=== PATIENT | female | born 1960 | race Caucasian/White ===

== ENCOUNTER → 2018-02-05 16:26 | Outpatient (CLI) | payer MEDICARE, MEDICAID, SELFPAY ==
[2018-02-05 17:00] LABS: Abs Immature Grans 0.01 k/cumm (0.0-0.09); Absolute Basophil Count 0.03 k/cumm (0.0-0.2); Absolute Eosinophil Count 0.11 k/cumm (0.0-0.7); Absolute Lymphocyte Count 1.93 k/cumm (1.2-3.4); Absolute Neutrophil Count 2.69 k/cumm (1.2-6.7); Basophils % 0.6; Eosinophils % 2.1; HCT 39.5 % (36.0-46.0); HGB 13.3 g/dL (12.0-15.5); Immature Grans % 0.2; Lymphocytes % 37.3; Mean Corp. HGB Concentration 33.7 g/dL (32.0-36.0); Mean Corpuscular Hemoglobin 30.4 pg (27.0-33.0); Mean Corpuscular Volume 90.2 fL (80-95); Mean Platelet Volume 10.6 fL (8.0-11.0); Monocytes % 7.7; Neutrophils % 52.1; Platelet Count 240 x1000/uL (130-400); RBC 4.38 m/cumm (4.00-5.20); RBC Distribution Width 14.1 % (11.7-14.6); White Blood Cell Count 5.17 k/cumm (4.4-10.8)
[2018-02-05 17:09] LABS: ALT 21 U/L (12-78); AST 17 U/L (15-37); Albumin 3.8 g/dL (3.4-5.0); Alkaline Phosphatase 70 U/L (46-116); BUN 15 mg/dL (7-18); Bilirubin, Total 0.3 mg/dL (0.2-1.0); Calcium 8.6 mg/dL (8.5-10.1); Chloride 102 mmol/L (98-107); Glucose 114 mg/dL (70-100); Potassium 3.4 mmol/L (3.5-5.1); Sodium 136 mmol/L (136-145); Total Protein 7.4 g/dL (6.4-8.2)
== END ==
PROVIDERS: PCP Nurse Practitioner Adult Health; Visit Provider Internal Medicine Hematology & Oncology
DX: C50.919 Malignant neoplasm of unspecified site of unspecified female breast (principal)
CPT/HCPCS: 36415; 80053; 85025

== ENCOUNTER 2018-06-11 13:05 | Outpatient (CLI) | payer MEDICARE, MEDICAID, SELFPAY ==
--- NOTE | 2018-06-11 11:30 | DI.RAD_ITS ---
SYMPTOMS/DIAGNOSIS: COUGH, R05, ? PNEUMONIA PA AND LATERAL CHEST: The heart is normal in size. The lungs are clear. The mediastinal structures and pleura appear intact. CONCLUSION: Normal chest.
== END 2018-06-11 13:25 ==
PROVIDERS: PCP Nurse Practitioner Adult Health; Visit Provider Nurse Practitioner Family
DX: R05 Cough (principal)
CPT/HCPCS: 71046

== ENCOUNTER 2019-03-20 07:04 | Emergency (ER) | payer MEDICARE, MEDICAID, SELFPAY ==
[2019-03-20 07:09] VITALS: BP 146/94; PULSE 87; RESP 16; TEMP 36.8; O2SAT 98
--- NOTE | 2019-03-20 07:15 | W.ED.GENAD ---
Discharge Plan Disposition Patient Disposition: HOME Discharge Details Chief Complaint: Chest/Rib Clinical Impression: Contusion of rib on right side Primary Care Provider: Dena Alfonso ED Provider: Mehul Weinberg Home Meds and New Rx's Prescriptions: New lidocaine 4 % adhesive patch,medicated 1 patch TP DAILY PRN (Reason: pain) Qty: 1 RF: 0 Continued (DME) blood-glucose meter [FreeStyle Lite Meter] kit See Dose Instructions .ROUTE .MEDSUPPLY Qty: 1 RF: 0 (DME) FreeStyle Lite Strips strip 1 ea Miscellaneous DAILY Qty: 100 RF: 3 (DME) lancets [FreeStyle Lancets] 28 gauge misc 1 ea Miscellaneous DAILY Qty: 100 RF: 3 epinephrine [EpiPen 2-Hi] 0.3 mg/0.3 mL auto-injector 0.3 mg IM ONCE Qty: 1 RF: 0 fluticasone propionate [Flonase Allergy Relief] 50 mcg/actuation spray,suspension 1 - 2 spray NS DAILY PRN (Reason: nasal congestion) Qty: 16 RF: 3 olopatadine [Pataday] 0.2 % drops 1 drp Ophthalmic DAILY PRN (Reason: itching) Qty: 1 RF: 0 No Action valacyclovir 1 gram tablet 1,000 mg PO Q8H Qty: 21 RF: 0 Discharge Instructions Instructions: Rib Contusion (ED) Additional Instructions: Please use incentive spirometry every 2 hours while awake for the next 1 week. Please take ibuprofen over the counter. Take 600mg by mouth every 6 hours as needed for pain. Please contact your primary care physician to arrange follow-up. Return to the ER for any worsening or new concerning symptoms. Referrals: Dena Alfonso, [employer] [Primary Care Provider] - Discharge Data Discharge Date/Time-TO BE ENTERED AT DEPARTURE: 03/20/19 08:58 Medical Decision Making <Efraín Cruz MD - Last Filed: 03/23/19 23:05> Patient presenting with right lateral rib pain that she reports occurred as she was leaning over the arm of a chair and felt a pop. She does not feel short of breath but hurts to take a breath. There is no rash. There is no fever. Definite action that provoke the pain. Unlikely to be pulmonary embolus. Will apply Lidoderm patch and give ibuprofen. Obtain x-ray of chest and right rib. <Mehul Weinberg MD - Last Filed: 03/21/19 08:48> Chest x-ray reviewed and interpreted by me: No pneumothorax, no obvious rib fracture, incidentally noted scoliosis. Suspect rib contusion. Incentive spirometer was provided and patient was instructed on use by nursing. Usual and customary discharge instructions were provided. HPI <Efraín Cruz MD - Last Filed: 03/23/19 23:05> General Mode of arrival: ambulatory. Date/Time Provider Initiated Documentation: 03/20/19 07:13. Limitations to Documentation: no limitations. Information obtained by: patient. HPI Narrative: Patient presents to ED with right lateral rib pain. She leaned over an arm of a chair to plug a wire charger in. She felt a pop and had pain in the right lateral chest wall. It has got worse. It hurts to take deep breaths. It hurts to move. It is much worse when she is lying down. She denies fever or chills. She has developed a little bit of a cough. There is no abdominal pain, nausea or vomiting. There is no leg pain or leg swelling. She does not have prior history of clots. She distinctly recalls a pop in the right ribs prior to the pain occurring. Related Data Home Medications Medication Instructions Recorded Confirmed blood sugar diagnostic #100 box 10/20/18 10/20/18 blood-glucose meter #1 each 10/20/18 10/20/18 epinephrine 0.3 mg/0.3 mL 0.3 mg IM ONCE #1 kit 10/20/18 03/20/19 injection, auto-injector lancets 28 gauge #100 each 10/20/18 10/20/18 fluticasone propionate 50 1 - 2 spray NS DAILY PRN #16 gm 12/23/18 03/20/19 mcg/actuation nasal spray,suspension olopatadine 0.2 % eye drops 1 drp OPHTHALMIC DAILY PRN #1 01/02/19 03/20/19 bottle lidocaine 1 patch TP DAILY PRN #1 each 03/20/19 valacyclovir 1 gram tablet 1,000 mg PO Q8H #21 tab 03/23/19 03/23/19 Previous Rx's Medication Instructions Recorded blood sugar diagnostic #100 box 10/20/18 blood-glucose meter #1 each 10/20/18 epinephrine 0.3 mg/0.3 mL 0.3 mg IM ONCE #1 kit 10/20/18 injection, auto-injector lancets 28 gauge #100 each 10/20/18 fluticasone propionate 50 1 - 2 spray NS DAILY PRN #16 gm 12/23/18 mcg/actuation nasal spray,suspension olopatadine 0.2 % eye drops 1 drp OPHTHALMIC DAILY PRN #1 01/02/19 bottle lidocaine 1 patch TP DAILY PRN #1 each 03/20/19 valacyclovir 1 gram tablet 1,000 mg PO Q8H #21 tab 03/23/19 Allergies Allergy/AdvReac Type Severity Reaction Status Date / Time iodine Allergy Severe hives Verified 03/23/19 13:12 carvedilol Allergy Intermediate Hives Verified 03/23/19 13:12 codeine [Codeine] Allergy Intermediate RASH Verified 03/23/19 13:12 Penicillins Allergy Intermediate RASH Verified 03/23/19 13:12 Sulfa (Sulfonamide Allergy Intermediate Rash Verified 03/23/19 13:12 Antibiotics) hydrocodone Allergy Mild ITCHING Verified 03/23/19 13:12 tramadol Allergy Mild Hives Verified 03/23/19 13:12 General Stated Complaint: Chest/Rib MARIO: 3 Review of Systems <Efraín Cruz MD - Last Filed: 03/23/19 23:05> Constitutional Constitutional: Denies chills and Denies fever(s) Cardiovascular Cardiovascular: Reports chest pain (right rib pain), Denies palpitations and Denies dyspnea Respiratory Respiratory: Reports cough, Reports pain with cough and Denies dyspnea Gastrointestinal Gastrointestinal: Denies abdominal pain, Denies nausea and Denies vomiting Integumentary/Breasts Skin/Breast: Denies rash Endocrine Endocrine: Denies palpitations PFSH <Efraín Cruz MD - Last Filed: 03/23/19 23:05> Medical History BRCA1 gene mutation positive (Chronic 03/26/13) S/P BSO-04/29 needs yearly pelvic exam per Dr. Chamberlain Cardiomyopathy Chronic anxiety Cystocele with uterine prolapse (Chronic 04/03/17) 04/03/2017 #3. Ring with support Depressed bipolar I disorder (Chronic 06/16/12) Diabetes mellitus (Chronic 06/16/12) E-coli UTI (Resolved 04/23/17) 04/08/2017 pansensitive. Rx with ciprofloxacin ?3 days. 04/23/2017 recurrent symptoms no urine culture obtained Rx for ciprofloxacin ?5 days. Family history of diabetes mellitus (Chronic 08/20/16) History of cardiomyopathy (Resolved 05/06/15) 08/15/11. CARDIAC CATH NORMAL CORONARY ARTERIES. idiopathic per torkelson, resolved Hx of eating disorder anorexia and bulemia in adolescence. None since. Hx of migraines Malignant neoplasm of female breast (Resolved 12/15/04) BRAC-1 GENE MUTATION left; mastectomy; radiation and chemo. [place] [place] Midline cystocele Symptomatic since 2015. Migraine (Chronic 06/16/12) Scoliosis (Chronic) Meloxicam PRN, APAP, PT, weight management Vitamin D deficiency (Chronic 06/16/12) Surgical History Arthroplasty of knee (~2010) [facility]-LEFT KNEE ARTHROSCOPY WITH PARTIAL MEDIAL AND LATERAL MENISCECTOMY Bilateral salpingectomy with oophorect[place] [facility] [place] removal of fallopian tubes and ovaries. No HRT. On vaginal E2 cream. Breast, Lumpectomy 2004 L breast cancer BRACA 1 + followed by Chemo and Radiation CARDIAC HEART CATH (08/15/11) [place] [facility] [place]) Ligation of fallopian tube STRESS TEST (08/15/11) [facility] [place] Tonsillectomy Social History Smoking/Tobacco Use Status: Never Alcohol Intake: current Alcohol Intake frequency: holidays/special occasions only Drug use: Never Household members: none Housing: apartment Number of Children: 3 number of grandchildren: 2 Communication Needs: Corrective Lenses Do you need help understanding health information?: Never 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 Blood pressure little elevated otherwise normal vital signs and normal room air saturation. Const: WDWN female in NAD. HEENT: NC/AT. Normal facial exam. Eyes: Normal conjunctiva and sclera. Neck: Supple. Trachea midline. Lungs: Normal respiratory effort. Lungs are clear. Exquisite tenderness right lateral ribs around the fourth or fifth rib. Cor: RRR without murmur/gallop. Good radial pulses. GI: Soft. NT/ND. No guarding or rebound. Neuro: A+O x 3. CN grossly in tact. Good strength and no focal deficit. Ext: No C/C/E. No calf tenderness. Skin: Warm and dry without rash. Course <Efraín Cruz MD - Last Filed: 03/23/19 23:05> Vital Signs Vital signs: Vital Signs Temperature 98.2 F 03/20/19 07:09 Pulse 87 03/20/19 07:09 Respiratory Rate 16 03/20/19 07:09 Blood Pressure 146/94 H 03/20/19 07:09 Pulse Oximetry 98 03/20/19 07:09 Temperature 98.2 F 03/20/19 07:09 Pulse 87 03/20/19 07:09 Respiratory Rate 16 03/20/19 07:09 Blood Pressure 146/94 H 03/20/19 07:09 Pulse Oximetry 98 03/20/19 07:09 Pain Level 6 03/20/19 07:09 Sign Out <Efraín Cruz MD - Last Filed: 03/23/19 23:05> Sign Out Data: Sign Out Comment: pending rib/chest x-ray Last updated by Efraín Cruz MD at 03/20/19 07:52
--- NOTE | 2019-03-20 07:22 | DI.RAD_ITS ---
EXAM: XR RIBS RT W PA LAT CHEST INDICATION: right rib pain. COMPARISON: XR CHEST 2V PA LATERAL from 06/11/2018 TECHNIQUE: 2D digital imaging was performed. FINDINGS: PA and lateral views of the chest and three views of the right ribs were obtained. The heart is not enlarged. The lungs are clear. No pleural effusion or pneumothorax seen. No rib fracture identifie d. IMPRESSION: Negative examination of the chest and ribs.
[2019-03-20] MEDS: Ibuprofen 600 MG TAB PO (07:39)
[2019-03-20] MEDS: Lidocaine 5% Patch 1 PATCH TP (07:40)
[2019-03-20 08:55] VITALS: BP 112/77; PULSE 70; RESP 18; O2SAT 97
== END 2019-03-20 08:58 | disposition home or self-care (01) ==
PROVIDERS: Emergency Provider Student in an Organized Health Care Education/Training Program; PCP Nurse Practitioner Adult Health
DX: S20.211A Contusion of right front wall of thorax, initial encounter (principal); X58.XXXA Exposure to other specified factors, initial encounter
CPT/HCPCS: 99283; 71046; 71100

== ENCOUNTER 2019-04-13 01:48 | Outpatient (CLI) | payer MEDICARE, MEDICAID, SELFPAY ==
--- NOTE | 2019-04-13 15:49 | DI.RAD_ITS ---
EXAM: XR LUMBAR SPINE COMPLETE INDICATION: assess alignment; bones. COMPARISON: No exams were available for comparison TECHNIQUE: 2D digital imaging was performed. FINDINGS: There is a moderate right convex scoliotic curvature at the thoracolumbar junction. The apex is at t he L1-L2 disc level. There is mild retrolisthesis of L2 on L3. Mild disc space narrowing is seen at L1-L2 marked disc space narrowing is seen at L2-L3. There are anterior osteophytes most of the leve ls of the lumbar spine. No spondylolysis or spondylolisthesis is seen. No acute fracture or subluxa tion is present. IMPRESSION: Moderate right convex scoliosis with apex at the L1-L2 disc level. Degenerative changes in the lumba r spine.
--- NOTE | 2019-04-13 15:49 | DI.RAD_ITS ---
EXAM: XR THORACIC SPINE COMPLETE INDICATION: Assess alignment bones of T and L spine. COMPARISON: No exams were available for comparison TECHNIQUE: 2D digital imaging was performed. FINDINGS: There is a very mild S-type scoliotic curvature of the thoracic spine. No acute fractures or subluxa tions are seen in the spine. Mild degenerative changes are seen in the midthoracic spine. The sidnye adriel lines are intact. IMPRESSION: Mild S-type scoliotic curvature of the thoracic spine. Mild degenerative changes in the thoracic spi ne.
--- NOTE | 2019-04-13 17:06 | DI.DEXA_ITS ---
EXAM: XR DEXA BONE DENSITY W/WO ANA MARIA INDICATION: reassess bone health, osteopenia, M85.88. COMPARISON: Comparison July 26, 2015 TECHNIQUE: 2D digital imaging was performed. FINDINGS: No compression deformities are seen on the lateral view of the spine. Evaluation of the left hip shows a total T-score of -1.5 and a Z-score of -0.7. This is consistent w ith osteopenia and an increased fracture risk. This compares with a total T-score of -0.8 from 2016. Evaluation of the lumbar spine shows a total T-score of -0.8 and a Z-score of 0.5. This is within no rmal limits. This compares with a total T-score of -1.3 from 2016. IMPRESSION: No evidence of osteoporosis.
== END 2019-04-13 02:08 ==
PROVIDERS: PCP Nurse Practitioner Adult Health; Visit Provider Nurse Practitioner Adult Health
DX: M85.88 Other specified disorders of bone density and structure, other site (principal); M54.6 Pain in thoracic spine; M54.5 Low back pain; M41.85 Other forms of scoliosis, thoracolumbar region; M62.838 Other muscle spasm
CPT/HCPCS: 77080; 72072; 72110

== ENCOUNTER 2019-04-20 14:45 | Emergency (ER) | payer MEDICARE, MEDICAID, SELFPAY ==
[2019-04-20 14:57] VITALS: BP 130/83; PULSE 86; RESP 16; TEMP 36.3; O2SAT 97
--- NOTE | 2019-04-20 15:10 | ED.GENADUL_ITS ---
Discharge Plan Disposition Patient Disposition: HOME Condition: Good Discharge Details Chief Complaint: Orthopedic Clinical Impression: Fracture of wrist Primary Care Provider: Dena Alfonso ED Provider: Janice Estevez Home Meds and New Rx's Prescriptions: New oxycodone 5 mg capsule 5 mg PO Q6H PRN (Reason: pain) Qty: 6 RF: 0 ondansetron HCl [Zofran] 4 mg tablet 4 mg PO Q8H Qty: 6 RF: 0 No Action (DME) blood-glucose meter [FreeStyle Lite Meter] kit See Dose Instructions .ROUTE .MEDSUPPLY Qty: 1 RF: 0 (DME) FreeStyle Lite Strips strip 1 ea Miscellaneous DAILY Qty: 100 RF: 3 (DME) lancets [FreeStyle Lancets] 28 gauge misc 1 ea Miscellaneous DAILY Qty: 100 RF: 3 epinephrine [EpiPen 2-Hi] 0.3 mg/0.3 mL auto-injector 0.3 mg IM ONCE Qty: 1 RF: 0 valacyclovir 1 gram tablet 1,000 mg PO Q8H Qty: 21 RF: 0 fluticasone propionate [Flonase Allergy Relief] 50 mcg/actuation spray,suspension 1 - 2 spray NS DAILY PRN (Reason: nasal congestion) Qty: 16 RF: 3 olopatadine [Pataday] 0.2 % drops 1 drp Ophthalmic DAILY PRN (Reason: itching) Qty: 1 RF: 0 Discharge Instructions Instructions: Wrist Fracture in Adults (ED) Additional Instructions: Follow-up with administrative specialist for reevaluation as recommended. Keep splint in place. Use sling for comfort. Do not sleep in sling at night Ice over splint for 15 minutes 3-5 times a day. Use pain medication as prescribed. Do not drive, drink, work while taking this medication will cause drowsiness. Return for any worsening or concerns sooner if needed Referrals: Tahir Álvarez MD [ [facility] STAFF PHYSICIAN] - Discharge Data Discharge Date/Time-TO BE ENTERED AT DEPARTURE: 04/20/19 21:10 Medical Decision Making <YADIRA Dey - Last Filed: 04/21/19 23:18> Patient 58-year-old right-hand dominant female presenting today with chief complaint of right wrist deformity and left thumb pain after fall. Traversable and fell on her ulcers bilateral hands. On exam, patient's wrist is notable dinner fork deformity to the right wrist. She does have a laceration consistent with an open fracture on the anterior aspect. Patient has discomfort of the MCP joint of the left thumb. She does have good range of motion and dexterity, has pain with movement but no pain with axial loading or pain over the scaphoid. Ligamentously intact. Sharp and dull testing is intact on the right hand. Patient has abrasion to left knee but full range of motion, no discomfort with palpation, ligamentously intact. Admitting trauma exam was without acute abnormality. Plan for imaging of the patient's left thumb and right wrist. At the end of my shift, care transitioned to Rima Estevez PA-C with imaging pending. <YADIRA Desai - Last Filed: 04/20/19 23:49> Accepted signout of this patient pending x-ray results. There is a displaced fracture of the ulnar styloid and radius with associated soft tissue swelling. Notable superficial wound on the volar aspect of the wrist. This was discussed with orthopedics who ultimately evaluated the patient at the bedside, splinted and recommended discharge home at this time. HPI <YADIRA Dey - Last Filed: 04/21/19 23:18> General Mode of arrival: ambulatory . Date/Time Provider Initiated Documentation: 04/20/19 14:59 . Limitations to Documentation: no limitations . Information obtained by: patient, family (friend) and RN notes reviewed . HPI Narrative: Patient is a pleasant 58-year-old female with history of osteopenia, scoliosis, vitamin D deficiency, arthritis, cardiomyopathy, diabetes, bipolar, anxiety. She is presenting today after FOOSH. She reports that she tripped over a shovel and fell on her outstretched bilateral hands. Is endorsing severe pain in the right wrist with notable deformity. Is also having pain in the left thumb. Reports that she has an abrasion on her left knee. Ambulating well. Denies any numbness or tingling. Did not strike her head. No loss of consciousness. No nausea or vomiting. No acute visual changes. Denies shortness of breath, chest pain, abdominal pain, pelvic pain. Related Data Home Medications Medication Instructions Recorded Confirmed blood sugar diagnostic #100 box 10/20/18 04/20/19 blood-glucose meter #1 each 10/20/18 04/20/19 epinephrine 0.3 mg/0.3 mL 0.3 mg IM ONCE #1 kit 10/20/18 04/20/19 injection, auto-injector lancets 28 gauge #100 each 10/20/18 04/20/19 fluticasone propionate 50 1 - 2 spray NS DAILY PRN #16 gm 12/23/18 04/20/19 mcg/actuation nasal spray,suspension olopatadine 0.2 % eye drops 1 drp OPHTHALMIC DAILY PRN #1 01/02/19 04/20/19 bottle valacyclovir 1 gram tablet 1,000 mg PO Q8H #21 tab 03/23/19 04/20/19 ondansetron HCl [Zofran] 4 mg PO Q8H #6 tab 04/20/19 oxycodone 5 mg PO Q6H PRN #6 cap 04/20/19 Previous Rx's Medication Instructions Recorded blood sugar diagnostic #100 box 10/20/18 blood-glucose meter #1 each 10/20/18 epinephrine 0.3 mg/0.3 mL 0.3 mg IM ONCE #1 kit 10/20/18 injection, auto-injector lancets 28 gauge #100 each 10/20/18 fluticasone propionate 50 1 - 2 spray NS DAILY PRN #16 gm 12/23/18 mcg/actuation nasal spray,suspension olopatadine 0.2 % eye drops 1 drp OPHTHALMIC DAILY PRN #1 01/02/19 bottle valacyclovir 1 gram tablet 1,000 mg PO Q8H #21 tab 03/23/19 ondansetron HCl [Zofran] 4 mg PO Q8H #6 tab 04/20/19 oxycodone 5 mg PO Q6H PRN #6 cap 04/20/19 Allergies Allergy/AdvReac Type Severity Reaction Status Date / Time iodine Allergy Severe hives Verified 04/20/19 15:01 carvedilol Allergy Intermediate Hives Verified 04/20/19 15:01 codeine [Codeine] Allergy Intermediate RASH Verified 04/20/19 15:01 Penicillins Allergy Intermediate RASH Verified 04/20/19 15:01 Sulfa (Sulfonamide Allergy Intermediate Rash Verified 04/20/19 15:01 Antibiotics) hydrocodone Allergy Mild ITCHING Verified 04/20/19 15:01 tramadol Allergy Mild Hives Verified 04/20/19 15:01 General Stated Complaint: Orthopedic MARIO: 3 Review of Systems <YADIRA Dey - Last Filed: 04/21/19 23:18> Constitutional Constitutional: Reports as per HPI, Denies chills, Denies fatigue, Denies fever(s), Denies headache(s) and Denies weakness Eyes Eyes: Reports as per HPI, Denies blurry vision, Denies change in vision and Denies loss of vision ENT Ears, Nose, Mouth, and Throat: Denies abnormal hearing and Denies headache(s) Cardiovascular Cardiovascular: Reports as per HPI, Denies chest pain and Denies dyspnea Respiratory Respiratory: Reports as per HPI, Denies cough, Denies pain on inspiration, Denies pain with cough and Denies dyspnea Gastrointestinal Gastrointestinal: Reports as per HPI, Denies abdominal pain, Denies nausea and Denies vomiting Genitourinary Genitourinary: Reports as per HPI and Denies urinary incontinence Musculoskeletal Musculoskeletal: Reports as per HPI Integumentary/Breasts Skin/Breast: Reports as per HPI, Denies rash and Reports wounds (Laceration to anterior right wrist) Neurologic Neurologic: Reports as per HPI, Denies abnormal hearing, Denies abnormal movements, Denies abnormal speech, Denies headache(s), Denies lack of coordination, Denies focal weakness, Denies loss of vision, Denies seizure-like activity, Denies paresthesias and Denies weakness Endocrine Endocrine: Denies fatigue PFSH <YADIRA Dey - Last Filed: 04/21/19 23:18> Medical History BRCA1 gene mutation positive (Chronic 03/26/13) S/P BSO-04/29 needs yearly pelvic exam per Dr. Chamberlain Cardiomyopathy Chronic anxiety Cystocele with uterine prolapse (Chronic 04/03/17) 04/03/2017 #3. Ring with support Depressed bipolar I disorder (Chronic 06/16/12) Diabetes mellitus (Chronic 06/16/12) E-coli UTI (Resolved 04/23/17) 04/08/2017 pansensitive. Rx with ciprofloxacin ?3 days. 04/23/2017 recurrent symptoms no urine culture obtained Rx for ciprofloxacin ?5 days. Family history of diabetes mellitus (Chronic 08/20/16) History of cardiomyopathy (Resolved 05/06/15) 08/15/11. CARDIAC CATH NORMAL CORONARY ARTERIES. idiopathic per torkelson, resolved Hx of eating disorder anorexia and bulemia in adolescence. None since. Hx of migraines Malignant neoplasm of female breast (Resolved 12/15/04) BRAC-1 GENE MUTATION left; mastectomy; radiation and chemo. +BRCA [facility] mammo surveillance Midline cystocele Symptomatic since 2015. Migraine (Chronic 06/16/12) Scoliosis (Chronic) X-rays 03/2019: Mod R L1-L2 & mild S-type T-spine Meloxicam PRN, APAP, PT, weight management Vitamin D deficiency (Chronic 06/16/12) Surgical History Arthroplasty of knee (~2010) [facility]-LEFT KNEE ARTHROSCOPY WITH PARTIAL MEDIAL AND LATERAL MENISCECTOMY Bilateral salpingectomy with oophorectomy [facility] 2012 prophylactic removal of fallopian tubes and ovaries. No HRT. On vaginal E2 cream. Breast, Lumpectomy 2005 L breast cancer BRACA 1 + followed by Chemo and Radiation CARDIAC HEART CATH (08/15/11) LEFT; [facility] (SEE SCANNED REPORT) Ligation of fallopian tube STRESS TEST (08/15/11) [facility] (SEE SCANNED REPORT) Tonsillectomy Social History Smoking/Tobacco Use Status: Never Alcohol Intake: current Alcohol Intake frequency: holidays/special occasions only Drug use: Never Substance use type: does not use Household members: none Housing: apartment Number of Children: 3 number of grandchildren: 2 Communication Needs: Corrective Lenses Do you need help understanding health information?: Never 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 [employer] Pets and animals: Yes Pets and animals: dog(s) Sexually active: No What type of physical activity do you participate in: walking Missy/Denominational: Spiritism Seatbelt use: always Working smoke detector in home: Yes Fire extinguisher in home: Yes Carbon monox detector in home: Yes Do you feel safe at home: Yes Do you feel safe in your relationship?: Yes Exam <YADIRA Dey - Last Filed: 04/21/19 23:18> Const General: cooperative, healthy appearing, comfortable, no acute distress, well developed and well groomed Nutritional Appearance: average body habitus and well nourished Orientation: alert, awake and oriented x3 [facility] Head: normal to inspection, no palpable skull fracture, normocephalic and atraumatic Ears: hearing grossly normal bilaterally, external ears normal and TM's normal bilaterally General nose exam: external nose normal Mouth: oral mucosae normal, lip normal and tongue normal Throat: posterior oropharynx normal Eyes General: appearance normal, both eyes and all related structures Visual Collins: normal visual collins by confrontation Alignment and Position: alignment normal Periorbital: periorbital findings normal Eyelids: eyelids normal Conjunctivae: conjunctivae normal Pupils: PERRL EOM: EOM intact bilaterally Neck Neck: normal visual inspection, full ROM, no lymphadenopathy, no meningeal signs, trachea midline and supple Chest Chest: normal inspection of the chest, normal palpation of entire chest wall, no crepitus and no localized rib tenderness Resp Effort & Inspection: normal respiratory effort, able to speak in complete sentences and no respiratory distress Auscultation: clear to auscultation bilaterally, no rales, no rhonchi and no wheezes Cardio Rate: regular rate Rhythm: regular rhythm Heart Sounds: S1 normal and S2 normal GI Inspection: normal to inspection, no abdominal wall ecchymosis, no edema and non-distended Palpation: soft, no hepatosplenomegaly, not firm, no guarding, no pulsatile masses, not rigid and nontender Auscultation: normal bowel sounds Back/Spine/Pelvis Back: no CVA tenderness Cervical Spine: normal cervical lordosis and cervical ROM normal Thoracic/Lumbar Spine: thoracic and lumbar spine normal to inspection, thoraco- lumbar ROM normal, No thoraco-lumbar ROM limited, No thoraco-lumbar spasm and No thoracic spinal tenderness Pelvis: no pain with anterior-posterior compression and no pain with lateral compression Skin General skin exam: no rashes or lesions noted Lesions: no lesions Rashes: no rashes Trauma: no lacerations or abrasions Wounds: no wounds Neuro General: alert, awake, oriented x3, gait normal, tone normal and moves all extremities Cranial Nerves: CN's II-XI intact bilaterally Cognition: normal cognition Speech: speech normal Gait: normal gait Motor: muscle tone normal throughout and strength 5/5 throughout Sensory Exam: no sensory deficits noted (no saddle paresthesias) Extrem General: normal to inspection, full ROM, normal capillary refill, no pedal edema and no calf tenderness Psych Appearance: grossly normal and well kempt Mental Status: mental status grossly normal Speech and Movement: speech and movement normal Course <YADIRA Dey - Last Filed: 04/21/19 23:18> Vital Signs Vital signs: Vital Signs Temperature 36.3 C L 04/20/19 14:57 Pulse 86 04/20/19 14:57 Respiratory Rate 16 04/20/19 14:57 Blood Pressure 130/83 04/20/19 14:57 Pulse Oximetry 97 04/20/19 14:57 Temperature 36.3 C L 04/20/19 14:57 Temperature Source Temporal Artery Scan 04/20/19 14:57 Pulse 86 04/20/19 14:57 Respiratory Rate 16 04/20/19 14:57 Respiratory Effort Non-Labored 04/20/19 14:59 Blood Pressure 130/83 04/20/19 14:57 Blood Pressure Position Sitting 04/20/19 14:57 Pulse Oximetry 97 04/20/19 14:57 Oxygen Delivery Method Room Air 04/20/19 14:57 Oxygen Flow Rate 0 04/20/19 14:57 Pain Level 9 04/20/19 15:05 Sign Out <YADIRA Dey - Last Filed: 04/21/19 23:18> Sign Out Data: Sign Out Comment: care transitioned to Rima Estevez PA-C with imaging pending. Concern for open right wrist fracture. Last updated by Loretta Mendez PA at 04/20/19 16:13
--- NOTE | 2019-04-20 15:19 | DI.RAD_ITS ---
EXAM: XR WRIST RT COMPLETE INDICATION: FOOSH. COMPARISON: No exams were available for comparison TECHNIQUE: 2D digital imaging was performed. FINDINGS: There is a mildly displaced fracture of the ulnar styloid. There is a fracture extending mainly wilson sversely through the distal radial metaphysis. There is some impaction and dorsal angulation. There is no visible separation at the articular surface. Carpal bones appear intact. IMPRESSION: Distal radial and ulnar styloid fractures.
--- NOTE | 2019-04-20 15:19 | DI.RAD_ITS ---
EXAM: XR THUMB LT INDICATION: FOOSH. COMPARISON: No exams were available for comparison TECHNIQUE: 2D digital imaging was performed. FINDINGS: No fracture or dislocation is seen. IMPRESSION: Negative
[2019-04-20] MEDS: fentaNYL 100 MCG/2 ML VIAL 50 MCG IVP (15:28)
--- NOTE | 2019-04-20 16:23 | DI.VRAD_ITS ---
PROCEDURE INFORMATION: Exam: XR Left Finger(s) Exam date and time: 04/20/2019 3:59 PM Clinical history: 58 years old, female; Injury or trauma; Fall; Initial encounter; Blunt trauma (contusions or hematomas; Finger; Left; Thumb; Patient HX: Foosh TECHNIQUE: Imaging protocol: XR Left fingers. Views: Minimum 2 views. COMPARISON: No relevant prior studies available. FINDINGS: Bones/joints: There is no evidence of acute fracture.There is no evidence of malalignment or dislocation. Soft tissues: Normal. IMPRESSION: There is no evidence of acute fracture.There is no evidence of malalignment or dislocation Dictated and Authenticated by: Nicolle Vo MD. Ordering:CASSIDY Burgos MD
--- NOTE | 2019-04-20 16:24 | DI.VRAD_ITS ---
PROCEDURE INFORMATION: Exam: XR Right Wrist Exam date and time: 04/20/2019 3:59 PM Clinical history: 58 years old, female; Injury or trauma; Fall; Initial encounter; Blunt trauma (contusions or hematomas; Wrist; Right; Patient HX: Foosh TECHNIQUE: Imaging protocol: XR Right wrist. Views: 3 or more views. COMPARISON: No relevant prior studies available. FINDINGS: Bones/joints: Displaced impacted distal radius fracture. Displaced ulnar styloid fracture. Soft tissues: Soft tissue swelling of the wrist IMPRESSION: 1. Displaced impacted distal radius fracture. . 2. Displaced ulnar styloid fracture. Dictated and Authenticated by: Nicolle Vo MD. Ordering:CASSIDY Burgos MD
[2019-04-20] MEDS: HYDROmorphone 2 MG/ML VIAL 0.5 MG IVP (17:31)
--- NOTE | 2019-04-20 17:33 | DI.RAD_ITS ---
EXAM: XR HAND RT COMPLETE INDICATION: pain. COMPARISON: XR THUMB LT from 04/20/2019 XR WRIST RT COMPLETE from 04/20/2019 TECHNIQUE: 2D digital imaging was performed. FINDINGS: The distal radial and ulnar styloid fractures are again noted. No additional fractures are seen in the hand.
--- NOTE | 2019-04-20 17:33 | DI.RAD_ITS ---
EXAM: XR WRIST RT LIMITED INDICATION: FELL ON OUTSTRETCHED HAND, PAIN COMPARISON: XR WRIST RT COMPLETE from 04/20/2019 TECHNIQUE: 2D digital imaging was performed. A single navicular view was performed. FINDINGS: No navicular fracture is seen. The carpal alignment appears normal. Again noted are the distal radial and ulnar styloid fractures. There are mild degenerative changes at the 1st carpometacarpal joint. IMPRESSION: Distal radial and ulnar styloid fractures. No evidence of scaphoid fracture.
--- NOTE | 2019-04-20 18:48 | DI.VRAD_ITS ---
PROCEDURE INFORMATION: Exam: XR Right Wrist Exam date and time: 04/20/2019 6:40 PM Clinical history: 58 years old, female; Pain; Right; Patient HX: Pa requested navicular of fractured wrist. TECHNIQUE: Imaging protocol: XR Right wrist. Views: 1 or 2 views. COMPARISON: CR XR WRIST RT COMPLETE 04/20/2019 3:50 PM FINDINGS: Bones/joints: Again noted are ulnar styloid fracture and distal radius fracture. No scaphoid fracture is identified.. Soft tissues: Soft tissue swelling of the wrist IMPRESSION: Again noted are ulnar styloid fracture and distal radius fracture. Dictated and Authenticated by: Nicolle Vo MD. Ordering:DOREEN Camacho MD
[2019-04-20 18:59] VITALS: RESP 18; O2SAT 98
[2019-04-20] MEDS: HYDROmorphone 2 MG/ML VIAL ×2 (19:00→20:07)
--- NOTE | 2019-04-20 19:05 | DI.VRAD_ITS ---
PROCEDURE INFORMATION: Exam: XR Right Hand Exam date and time: 04/20/2019 6:39 PM Clinical history: 58 years old, female; Injury or trauma; Fall; Initial encounter; Blunt trauma (contusions or hematomas; Wrist; Right; Injury details: Foosh TECHNIQUE: Imaging protocol: XR Right hand. Views: 3 or more views. COMPARISON: CR RIGHT HAND COMPLETE 08/20/2016 3:27 PM FINDINGS: Bones/joints: There is no evidence of acute fracture of the hand.There is no evidence of malalignment or dislocation in the hand. Displaced fracture of the ulnar styloid and radius. Soft tissues: soft tissue swelling of the wrist IMPRESSION: 1. There is no evidence of acute fracture of the hand.There is no evidence of malalignment or dislocation in the hand. 2. Displaced fracture of the ulnar styloid and radius. Soft tissue swelling of the wrist. Dictated and Authenticated by: Nicolle Vo MD. Ordering:DOREEN Camacho MD
--- NOTE | 2019-04-20 19:12 | OCONE_ITS ---
Date of service: 04/20/19 Time of Service: 19:12 History of Present Illness History of Present Illness Chief Complaint: Painful right wrist Narrative: Is a 58 right dominant white female who tripped over a shovel landed on bilateral outstretched wrists. She presented to the ER left thumb pain and right distal radius pain. There was a mild silver-fork deformity noted. X-rays revealed a extra-articular fracture distal radius and ulnar styloid on the right. There was mild radial shortening and dorsal tilt of the distal radial articular surface of 20 degrees. I was asked about her x-rays and recommended that she be splinted and sent to my office on Saturday.. At that time I would discuss closed reduction of the fracture with her. I was later called by the emergency room because she was quite upset about not seeing me and wanted to see me. I was involved in surgery and she was informed that I would not see her until 7:00 at the earliest. She decided to wait. She denies any numbness in her fingers or thumb of her right hand. Pain is isolated to the distal radius. She has some mild pain with active finger extension. Her pain is not excessive probably a 4 and a 10 scale. This is without any splinting. Assessment and Plan Assessment and plan (1) Fracture of distal radius and ulna: Status: Acute Assessment and plan: Assessment: Extra-articular fracture distal radius and ulnar styloid on the right. She has enough dorsal tilt and clinical deform ity, that a closed reduction is warranted to better align the fracture. I explained to the patient that it would be better to wait 48 hours or more for the swelling to go down before performing the reduction and casting. She would then be less likely to have to have the cast split with potential loss of reduction. She agrees with my treatment plan. Plan: Today I apply a well-padded volar fiberglass splint to the right wrist and forearm. Splint is held down with a an Telly bandage. Once the splint is hard she has good relief of discomfort. Splint is fashioned so she can flex and extend her fingers and thumb. She is advised to keep her wrist elevated alcohol levels much as possible. She is advised to flex and extend her fingers and thumb 10 times an hour while awake to prevent stiffness and swelling. She does take ibuprofen for mild pain. I expect the ER provider to give her something stronger for breakthrough pain. She should call my office tomorrow to make an appointment for Saturday morning. Will obtain better x-rays in the office to assess exact amount of deformity. Would then proceed to schedule a closed reduction and casting on elective basis on or Saturday. [facility] Medical History BRCA1 gene mutation positive (Chronic 03/26/13) S/P BSO-04/29 needs yearly pelvic exam per Dr. Chamberlain Cardiomyopathy Chronic anxiety Cystocele with uterine prolapse (Chronic 04/03/17) 04/03/2017 #3. Ring with support Depressed bipolar I disorder (Chronic 06/16/12) Diabetes mellitus (Chronic 06/16/12) E-coli UTI (Resolved 04/23/17) 04/08/2017 pansensitive. Rx with ciprofloxacin ?3 days. 04/23/2017 recurrent symptoms no urine culture obtained Rx for ciprofloxacin ?5 days. Family history of diabetes mellitus (Chronic 08/20/16) History of cardiomyopathy (Resolved 05/06/15) 08/15/11. CARDIAC CATH NORMAL CORONARY ARTERIES. idiopathic per torkelson, resolved Hx of eating disorder anorexia and bulemia in adolescence. None since. Hx of migraines Malignant neoplasm of female breast (Resolved 12/15/04) BRAC-1 GENE MUTATION left; mastectomy; radiation and chemo. [place]BR[place] [facility] [place] Midline cystocele Symptomatic since 2015. Migraine (Chronic 06/16/12) Scoliosis (Chronic) X-rays 03/2019: Mod R L1-L2 & mild S-type T-spine Meloxicam PRN, APAP, PT, weight management Vitamin D deficiency (Chronic 06/16/12) Surgical History Arthroplasty of knee (~2010) [facility]-LEFT KNEE ARTHROSCOPY WITH PARTIAL MEDIAL AND LATERAL MENISCECTOMY Bilateral salpingectomy with oophorectomy [facility] [place] prophylactic removal of fallopian tubes and ovaries. No HRT. On vaginal E2 cream. Breast, Lumpectomy 2004 L breast cancer BRACA 1 + followed by Chemo and Radiation CARDIAC HEART CATH (08/15/11) LEFT; [facility] [place]ANNED [place]) Ligation of fallopian tube STRESS TEST (08/15/11) [facility] [place]) Tonsillectomy Social History Smoking/Tobacco Use Status: Never Alcohol Intake: current Alcohol Intake frequency: holidays/special occasions only Drug use: Never Substance use type: does not use Household members: none Housing: apartment Number of Children: 3 number of grandchildren: 2 Communication Needs: Corrective Lenses Do you need help understanding health information?: Never 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 She has localized tenderness over the distal radial fracture. She has normal sensation and circulation of the fingers and thumb of her right hand. She has good active finger flexion extension. X-rays show a extra-articular transverse fracture distal radius and ulnar styloid. The x-rays are not optimal views that is the x-rays do not show 2 views orthogonal to each other. Despite this it looks like she has a dorsal tilt of 20 degrees on the lateral view which is consistent with her clinical deformity on exam. Results Last Vital Signs Temp 36.3 C L 04/20/19 14:57 Pulse 86 04/20/19 14:57 Resp 18 04/20/19 18:59 BP 130/83 04/20/19 14:57 Pulse Ox 98 04/20/19 18:59
[2019-04-20] MEDS: Ondansetron 4 MG/2 ML VIAL ×2 (19:17→20:06)
[2019-04-20 19:21] VITALS: BP 110/66; PULSE 72; RESP 17; O2SAT 96
[2019-04-20 20:43] VITALS: BP 119/70; PULSE 72; RESP 18; TEMP 36.9; O2SAT 96
[2019-04-20] MEDS: Ondansetron 0.8 MG/ML Solution 8 MG PO (20:45)
[2019-04-20] MEDS: Ondansetron O.D.T. 4 MG TABEF (20:47)
[2019-04-20] MEDS: oxyCODONE 5 MG TAB PO (20:49)
[2019-04-20] MEDS: oxyCODONE 5 MG TAB (20:50)
[2019-04-20 21:15] VITALS: BP 119/70; PULSE 72; RESP 18; TEMP 36.9; O2SAT 96
== END 2019-04-20 21:10 | disposition home or self-care (01) ==
PROVIDERS: Emergency Provider Physician Assistant; PCP Nurse Practitioner Adult Health
DX: S52.611B Displaced fracture of right ulna styloid process, initial encounter for open fracture type I or II (principal); S52.551B Other extraarticular fracture of lower end of right radius, initial encounter for open fracture type I or II; W01.0XXA Fall on same level from slipping, tripping and stumbling without subsequent striking against object, initial encounter; E11.9 Type 2 diabetes mellitus without complications
CPT/HCPCS: 29125; 96374; 96375; 99283; 99285; 73100; 73110; 73130; 73140; 99284; J2405; J3010; J8597; L3650

== ENCOUNTER 2019-10-27 13:15 | Outpatient (CLI) | payer MEDICARE, MEDICAID, SELFPAY ==
[2019-10-28 17:18] LABS: COVID-19 RT-PCR UVMMC Result Negative (Negative)
== END 2019-10-27 13:35 ==
PROVIDERS: PCP Nurse Practitioner Adult Health; Visit Provider Internal Medicine
DX: R05 Cough (principal); R06.02 Shortness of breath
CPT/HCPCS: U0003

== ENCOUNTER 2019-12-28 07:26 | Outpatient (CLI) | payer MEDICARE, MEDICAID, SELFPAY ==
[2020-01-01 18:11] LABS: SARS-CoV-2 RNA Undetected (Undetected); SARS-CoV-2 Specimen Source Nasopharynx
== END 2019-12-28 07:46 ==
PROVIDERS: PCP Nurse Practitioner Adult Health; Visit Provider Nurse Practitioner Adult Health
DX: Z11.59 Encounter for screening for other viral diseases (principal)
CPT/HCPCS: U0003

== ENCOUNTER 2020-02-29 14:48 | Outpatient (CLI) | payer MEDICARE, MEDICAID, SELFPAY | END 2020-02-29 15:08 | PROVIDERS: PCP Nurse Practitioner Adult Health; Visit Provider Internal Medicine Cardiovascular Disease | DX: R00.2 Palpitations (principal); R55 Syncope and collapse | CPT/HCPCS: 93225 ==

== ENCOUNTER 2020-03-02 16:55 | Outpatient (CLI) | payer MEDICARE, MEDICAID, SELFPAY ==
--- NOTE | 2020-03-03 11:51 | W.HOLTRPT ---
Date of service: 03/03/20 Time of Service: 11:51 Holter Monitor Report Referring Provider:: Jeferson Indications:: palps Holter Monitor Note: This is a 48-hour Holter monitor ordered for indication of palpitations. ?The patient was in normal sinus rhythm for majority recording with an average heart rate of 81 bpm (54-130 bpm) ?There were 2 episodes of SVT the longest lasting 9 beats. ?There were rare PACs and rare PVCs. ?No atrial fibrillation was recorded ?There were no episodes of ventricular tachycardia, no pauses grade 3 seconds no evidence of high degree heart block. ?The patient had 9 diary events which were associated with sinus rhythm, sinus tachycardia and a single PVC.
== END 2020-03-02 17:15 ==
PROVIDERS: PCP Nurse Practitioner Adult Health; Visit Provider Internal Medicine Cardiovascular Disease
DX: R00.2 Palpitations (principal); I47.1 Supraventricular tachycardia; I49.1 Atrial premature depolarization; I49.3 Ventricular premature depolarization
CPT/HCPCS: 93226

== ENCOUNTER 2020-03-03 12:00 | Outpatient (CLI) | payer MEDICARE, MEDICAID, SELFPAY | END 2020-03-03 12:20 | PROVIDERS: PCP Nurse Practitioner Adult Health; Referring Provider Internal Medicine Cardiovascular Disease; Visit Provider Internal Medicine Cardiovascular Disease | DX: R00.2 Palpitations (principal); I47.1 Supraventricular tachycardia; I49.1 Atrial premature depolarization; I49.3 Ventricular premature depolarization | CPT/HCPCS: 93227 ==

== ENCOUNTER 2020-03-30 02:25 | Outpatient (CLI) | payer MEDICARE, MEDICAID, SELFPAY ==
[2020-03-30 08:56] LABS: Abs Immature Grans 0.01 10^3/uL (0.0-0.06); Absolute Basophil Count 0.03 10^3/uL (0.0-0.2); Absolute Eosinophil Count 0.11 10^3/uL (0.0-0.7); Absolute Lymphocyte Count 1.47 10^3/uL (1.2-3.4); Absolute Monocyte Count 0.31 10^3/uL (0.1-0.8); Absolute Neutrophil Count 2.54 10^3/uL (1.2-6.7); Basophils % 0.7; Eosinophils % 2.5; HCT 39.8 % (36.0-46.0); HGB 12.9 g/dL (11.2-15.7); Immature Grans % 0.2; Lymphocytes % 32.9; MCH 29.9 pg (27.0-33.0); MCHC 32.4 % (32.0-36.0); MCV 92.3 fL (80-95); MPV 9.9 fL (8.0-11.0); Monocytes % 6.9; Neutrophils % 56.8; Nucleated RBC 0 %; Platelet Count 289 10^3/uL (130-400); RBC 4.31 10^6/uL (3.93-5.22); RDW 13.6 % (11.7-14.6); WBC 4.47 10^3/uL (4.4-10.8)
[2020-03-30 09:16] LABS: ALT 15 U/L (14-59); AST 16 U/L (15-37); Albumin 3.7 g/dL (3.4-5.0); Alkaline Phosphatase 65 U/L (46-116); Anion Gap 8.2 mmol/L (3-11); BUN 17 mg/dL (7-18); Bilirubin, Total 0.4 mg/dL (0.2-1.0); CO2 26.8 mmol/L (21.0-32.0); Calcium 8.8 mg/dL (8.5-10.1); Chloride 103 mmol/L (98-107); Glucose 101 mg/dL (74-106); Sodium 138 mmol/L (136-145); Total Protein 7.1 g/dL (6.4-8.2)
== END 2020-03-30 02:45 ==
PROVIDERS: PCP Nurse Practitioner Adult Health; Visit Provider Internal Medicine Hematology & Oncology
DX: C50.912 Malignant neoplasm of unspecified site of left female breast (principal); Z17.1 Estrogen receptor negative status [ER-]
CPT/HCPCS: 36415; 80053; 85025

== ENCOUNTER 2021-03-03 12:11 | Outpatient (CLI) | payer MEDICARE, MEDICAID, SELFPAY ==
[2021-03-04 16:18] LABS: COVID-19 RT-PCR UVMMC Result Negative (Negative)
== END 2021-03-03 12:12 | disposition home or self-care (01) ==
LOC: LBO 12:38
PROVIDERS: PCP Nurse Practitioner Adult Health; Visit Provider Nurse Practitioner Adult Health
DX: Z20.822 Contact with and (suspected) exposure to COVID-19 (principal)
CPT/HCPCS: U0003; U0005

== ENCOUNTER 2021-07-20 01:45 | Outpatient (CLI) | payer MEDICARE, MEDICAID, SELFPAY ==
--- NOTE | 2021-07-20 08:00 | DI.RAD_ITS ---
Exam(s) XR TIB/FIB RT EXAM: XR TIB/FIB RT CLINICAL HISTORY: bilateral hastings pain for months,M79.604,M79.605 TECHNIQUE: COMPARISON: No exams were available for comparison FINDINGS: Two views were obtained. No bony or soft tissue abnormality is seen. IMPRESSION: RADIATION DOSE DELIVERED: Total DLP
--- NOTE | 2021-07-20 08:00 | DI.RAD_ITS ---
Exam(s) XR TIB/FIB LT EXAM: XR TIB/FIB LT CLINICAL HISTORY: bilateral hastings splints for months,M79.604,M79.605 TECHNIQUE: COMPARISON: CR XR TIB/FIB RT from 07/20/2021 FINDINGS: Two views were obtained. No bony or soft tissue abnormality seen. IMPRESSION: RADIATION DOSE DELIVERED: Total DLP
== END 2021-07-20 02:05 ==
PROVIDERS: PCP Nurse Practitioner Adult Health; Visit Provider Nurse Practitioner
DX: M79.661 Pain in right lower leg (principal); M79.662 Pain in left lower leg
CPT/HCPCS: 73590

== ENCOUNTER 2021-07-31 01:34 | Outpatient (CLI) | payer MEDICARE, MEDICAID, SELFPAY ==
[2021-07-31 10:29] LABS: HCT 40.4 % (36.0-46.0); HGB 13.1 g/dL (11.2-15.7); MCH 29.9 pg (27.0-33.0); MCHC 32.4 % (32.0-36.0); MCV 92.2 fL (80-95); MPV 10.4 fL (8.0-11.0); Platelet Count 282 10^3/uL (130-400); RBC 4.38 10^6/uL (3.93-5.22); RDW 13.8 % (11.7-14.6); RDW-SD 47.3 fL
[2021-07-31 11:02] LABS: Creatine Kinase 60 U/L (26-192)
[2021-07-31 11:08] LABS: ALT 24 U/L (14-59); AST 20 U/L (15-37); Albumin 4.1 g/dL (3.4-5.0); Alkaline Phosphatase 68 U/L (46-116); BUN 16 mg/dL (7-18); Bilirubin, Total 0.5 mg/dL (0.2-1.0); CREATININE 0.9 mg/dL (0.55-1.02); Calcium 9.1 mg/dL (8.5-10.1); Chloride 102 mmol/L (98-107); Glucose 128 mg/dL (74-106); Magnesium 2.3 mg/dL (1.8-2.4); Potassium 4.4 mmol/L (3.5-5.1); Sodium 136 mmol/L (136-145); Total Protein 7.4 g/dL (6.4-8.2)
[2021-07-31 11:29] LABS: Vitamin D 25 Total 33.4 ng/mL (30-100)
== END 2021-07-31 01:35 | disposition home or self-care (01) ==
LOC: LBO 01:34
PROVIDERS: PCP Nurse Practitioner Adult Health; Visit Provider Nurse Practitioner
DX: F41.9 Anxiety disorder, unspecified (principal); E55.9 Vitamin D deficiency, unspecified; M62.838 Other muscle spasm; Z15.01 Genetic susceptibility to malignant neoplasm of breast; Z15.09 Genetic susceptibility to other malignant neoplasm
CPT/HCPCS: 36415; 80053; 82306; 82550; 85027; 83735; 84443

== ENCOUNTER 2021-09-26 03:53 | Outpatient (CLI) | payer MEDICARE, MEDICAID, SELFPAY ==
--- NOTE | 2021-09-26 11:00 | NS.NUTBLAN_ITS ---
Rebeca was referred for diabetes self management education. 5'5 185 lbs BMI: 34 Most recent A1C: 6.5% (07/18/21) indicates great glycemic control, however, Rebeca reports that she has wide fluctuations in her blood sugars (70- 220 mg/dl) daily. She is unable to tolerate metformin and was recently prescribed Trulicity- has not started. She is interested in a continuous glucose monitor in order to learn how her body responds to different foods. Diet recall: cottage cheese and fruit, keto granola, salad with chicken, quiche. Session today focused on how to follow balanced lower carb meals with focus on non starchy vegetables, complex carbs, and lean protein. She likes to exercise and often goes swimming, biking and walking. A Dexcom 6 CGM was attached and programmed to her android phone. Education on how to inject Trulicity was completed. She will return in 10 days for data down load. Follow up scheduled for 10/06/21 at 9 am- at that time will fax results to PCP for evaluation.
== END 2021-09-26 03:54 | disposition home or self-care (01) ==
LOC: DS 03:54
PROVIDERS: PCP Nurse Practitioner Adult Health; Visit Provider Dietitian, Registered
DX: E11.9 Type 2 diabetes mellitus without complications (principal); Z71.3 Dietary counseling and surveillance
CPT/HCPCS: 97802

== ENCOUNTER 2021-10-06 00:57 | Outpatient (CLI) | payer MEDICARE, MEDICAID, SELFPAY ==
--- NOTE | 2021-10-06 09:00 | NS.NUTBLAN_ITS ---
Rebeca returns after wearing a Dexcom 6 continuous glucose monitor. Ambulatory Glucose Profile: (09/23/21-10/06/21) Average Blood Sugar: 125 mg/dl Time in Range (70-180): 96.6% of time Excellent blood sugar control hypo/hyper glycemia - minimal Reviewed glycemic data with Rebeca and reviewed food log. Overall, DM2 is well controlled with diet and life style at this time. Rebeca enjoyed using the CGM as it helped her understand which foods raise her blood sugars and how exercise can reduce blood sugars. At this time Rebeca does not need medications for Dm control if she continues to follow a lower carb diet with emphasis on complex carbs, lean protein and healthy fats along with daily exercise of 20-30 minutes. No follow up planned at this time. Recommend run A1C q 6 months. If A1C > 7%, please refer for further diabetes self management education.
== END 2021-10-06 00:58 | disposition home or self-care (01) ==
LOC: DS 00:57
PROVIDERS: PCP Nurse Practitioner Adult Health; Visit Provider Dietitian, Registered
DX: E11.9 Type 2 diabetes mellitus without complications (principal); Z71.3 Dietary counseling and surveillance
CPT/HCPCS: 97803

== ENCOUNTER 2021-11-20 03:28 | Outpatient (CLI) | payer MEDICARE, MEDICAID, SELFPAY ==
[2021-11-20 08:31] LABS: Hemoglobin A1C 6.8 % (<5.7)
[2021-11-20 09:03] LABS: Calculated LDL 127 mg/dL (<100); Cholesterol 214 mg/dL (<200); HDL Cholesterol 68 mg/dL (40-60); Triglyceride 99 mg/dL (<150)
== END 2021-11-20 03:29 | disposition home or self-care (01) ==
LOC: LBO 03:29
PROVIDERS: PCP Nurse Practitioner Adult Health; Referring Provider Nurse Practitioner Adult Health; Visit Provider Nurse Practitioner Adult Health
DX: E11.9 Type 2 diabetes mellitus without complications (principal)
CPT/HCPCS: 36415; 80061; 82043; 82570; 83036

== ENCOUNTER 2021-12-20 13:57 | Outpatient (REF) | payer MEDICARE, MEDICAID, SELFPAY ==
[2021-12-20 20:34] LABS: COMMENT (LAB VIEW ONLY) 84.53 mg/dL
== END 2021-12-20 13:58 | disposition home or self-care (01) ==
LOC: LBN 13:57
PROVIDERS: PCP Nurse Practitioner Adult Health; Visit Provider Nurse Practitioner Adult Health
DX: E11.9 Type 2 diabetes mellitus without complications (principal)
CPT/HCPCS: 82043; 82570

== ENCOUNTER 2021-12-20 17:04 | Outpatient (CLI) | payer MEDICARE, MEDICAID, SELFPAY ==
[2021-12-20 19:08] LABS: Folate 5.9 ng/mL (8.6-20.0); Vitamin B12 497 pg/mL (193-986)
== END 2021-12-20 17:05 | disposition home or self-care (01) ==
LOC: LBO 17:07
PROVIDERS: PCP Nurse Practitioner Adult Health; Visit Provider Nurse Practitioner Adult Health
DX: R20.2 Paresthesia of skin (principal); E11.9 Type 2 diabetes mellitus without complications
CPT/HCPCS: 36415; 82607; 82746

== ENCOUNTER 2021-12-25 03:31 | Outpatient (CLI) | payer MEDICARE, MEDICAID, SELFPAY | END 2021-12-25 03:32 | disposition home or self-care (01) | LOC: LBO 03:31 | PROVIDERS: PCP Nurse Practitioner Adult Health; Visit Provider Nurse Practitioner Adult Health ==

== ENCOUNTER → 2022-01-05 01:28 | Outpatient (CLI) | payer MEDICARE, MEDICAID, SELFPAY ==
--- NOTE | 2022-01-05 11:30 | DI.NM_ITS ---
Exam(s) NM BONE SCAN WHOLE BODY GRP EXAM: NC BONE SCAN WHOLE BODY GRP CLINICAL HISTORY: ? METS, H/O LT BREAST CA,INCREASING LE PAIN,M79.605. TECHNIQUE: Injected Dose: 26.0 mCi Tc-99m MDP Delayed Images: 2-3 hours. COMPARISON: NM WholeBody from 01/28/2008 CR XR DEXA BONE DENSITY W/WO ANA MARIA from 04/13/2019 CR XR LUMBAR SPINE COMPLETE from 04/13/2019 FINDINGS: Symmetric axial uptake. Bilateral renal excretion is identified. . There is increased activity in the lumbar spine corresponding to previously noted area of with severe degenerative disc changes and end plate osteophytes. Scoliosis is also present. There is no abnormal activity in the lower extremitie s. IMPRESSION: No evidence of metastatic disease. No abnormal activity in the legs. Increased activity in the lum bar spine corresponds to severe degenerative changes at L2-3. DATA REPOSITORY:
== END ==
PROVIDERS: PCP Nurse Practitioner Adult Health; Visit Provider Internal Medicine Hematology & Oncology
DX: M79.605 Pain in left leg (principal); M47.816 Spondylosis without myelopathy or radiculopathy, lumbar region; Z85.3 Personal history of malignant neoplasm of breast
CPT/HCPCS: 78306

== ENCOUNTER 2022-09-03 15:45 | Outpatient (REF) | payer MEDICARE, MEDICAID, SELFPAY ==
[2022-09-03 20:59] LABS: HCT 41.2 % (36.0-46.0); HGB 13.7 g/dL (11.2-15.7); MCH 29.5 pg (27.0-33.0); MCHC 33.3 % (32.0-36.0); MCV 89 fL (80-95); MPV 10.1 fL (8.0-11.0); Platelet Count 296 10^3/uL (130-400); RBC 4.65 10^6/uL (3.93-5.22); RDW 13.5 % (11.7-14.6); RDW-SD 44.2 fL; WBC 5.03 10^3/uL (4.4-10.8)
[2022-09-03 21:00] LABS: Bilirubin Negative (Negative); Blood Trace-intact (Negative); Clarity Clear (Clear); Glucose Negative (Negative); Ketones Negative (Negative); Leukocyte Esterase Trace (Negative); Nitrite Negative (Negative); Urobilinogen 0.2 mg/dL (Up to 0.2)
[2022-09-03 21:12] LABS: RBC 0-2 HPF (0-2)
[2022-09-03 21:13] LABS: ALT 22 U/L (14-59); AST 16 U/L (15-37); Alkaline Phosphatase 62 U/L (46-116); Amylase 47 U/L (25-115); Anion Gap 8.3 mmol/L (3-11); BUN 14 mg/dL (7-18); Bacteria Few HPF (Negative); Bilirubin, Total 0.5 mg/dL (0.2-1.0); C & S Indicated? Yes; CO2 28.7 mmol/L (21.0-32.0); Calcium 9.6 mg/dL (8.5-10.1); Casts Negative LPF (Negative); Chloride 105 mmol/L (98-107); Crystals Negative HPF (Negative); Epithelial Cells Few HPF (Negative); Estimated GFR 64.49 (mL/min/1.73m2); Glucose 101 mg/dL (74-106); Lipase 37 U/L (16-77); Mucus Negative (Negative); Potassium 4.1 mmol/L (3.5-5.1); Sodium 142 mmol/L (136-145); Total Protein 7.3 g/dL (6.4-8.2)
== END 2022-09-03 15:46 | disposition home or self-care (01) ==
LOC: LBN 15:45
PROVIDERS: PCP Nurse Practitioner Adult Health; Visit Provider Nurse Practitioner Family
DX: N39.0 Urinary tract infection, site not specified (principal); R19.8 Other specified symptoms and signs involving the digestive system and abdomen; M79.89 Other specified soft tissue disorders; R10.12 Left upper quadrant pain; K21.9 Gastro-esophageal reflux disease without esophagitis; R35.0 Frequency of micturition
CPT/HCPCS: 80053; 83690; 85027; 81003; 81015; 82150; 87086

== ENCOUNTER 2022-09-05 15:42 | Outpatient (REF) | payer MEDICARE, MEDICAID, SELFPAY | END 2022-09-05 15:43 | disposition home or self-care (01) | LOC: LBN 15:42 | PROVIDERS: PCP Nurse Practitioner Adult Health; Visit Provider Obstetrics & Gynecology | DX: N89.8 Other specified noninflammatory disorders of vagina (principal) | CPT/HCPCS: 87480; 87510; 87660 ==

== ENCOUNTER 2022-09-13 01:19 | Outpatient (CLI) | payer MEDICARE, MEDICAID, SELFPAY ==
--- NOTE | 2022-09-13 07:00 | DI.US_ITS ---
Exam(s) US SOFT TISS ABD WALL/LOW BACK EXAM: US SOFT TISS ABD WALL/LOW BACK CLINICAL HISTORY: evaluate pathology,soft tissue mass, m79.89. TECHNIQUE: Ultrasound was performed using standard protocol. COMPARISON: CT CHEST FOR PULMONARY EMBOLUS from 04/21/2014 MR MRI BREAST BILATERAL W/WO CONTRAST from 08/04/2015 FINDINGS: Sonographic assessment utilizing grayscale and color Doppler imaging was performed and targeted to th e area of clinical concern in the left upper quadrant. In the area of the palpable abnormality, there is a smoothly marginated hypoechoic homogeneous area m easuring 3.6 x 0.7 x 3.6 cm, likely representing a simple lipoma.. IMPRESSION: Wall abnormality consistent with I lipoma. DATA REPOSITORY:
== END 2022-09-13 01:39 ==
LOC: DI 01:20
PROVIDERS: PCP Nurse Practitioner Adult Health; Visit Provider Nurse Practitioner Family
DX: R22.2 Localized swelling, mass and lump, trunk (principal); M79.89 Other specified soft tissue disorders; D17.39 Benign lipomatous neoplasm of skin and subcutaneous tissue of other sites
CPT/HCPCS: 76705

== ENCOUNTER 2022-09-21 00:55 | Outpatient (CLI) | payer MEDICARE, MEDICAID, SELFPAY ==
--- NOTE | 2022-09-21 10:15 | DI.NM_ITS ---
Exam(s) SD BONE SCAN WHOLE BODY GRP EXAM: SD BONE SCAN WHOLE BODY GRP CLINICAL HISTORY: BRCA1 POSITIVE Z15.01 Z15.09 LEFT SIDE RIB PAIN R07.81. TECHNIQUE: Injected Dose: 25 mCi Tc-99m MDP Delayed Images: 2-3 hours. COMPARISON: [facility] BONE SCAN WHOLE BODY GRP from 01/05/2022 FINDINGS: Symmetric axial uptake. Bilateral renal excretion is identified. There are stable foci of increased a ctivity seen in the cervical midthoracic and mid lumbar spine. These areas are unchanged. There are no new areas of radiotracer uptake. IMPRESSION: 1. No change in the appearance of the whole-body bone scan since 01/05/2022. 2. No abnormal uptake is seen in the ribs. DATA REPOSITORY:
== END 2022-09-21 01:15 ==
LOC: DI 00:55
PROVIDERS: PCP Nurse Practitioner Adult Health; Visit Provider Nurse Practitioner Family
DX: Z15.01 Genetic susceptibility to malignant neoplasm of breast (principal); Z15.09 Genetic susceptibility to other malignant neoplasm; R07.81 Pleurodynia
CPT/HCPCS: 78306

== ENCOUNTER → 2022-09-25 07:25 | Outpatient (BNVA) | payer MEDICARE, MEDICAID, SELFPAY | PROVIDERS: PCP Nurse Practitioner Adult Health; Referring Provider Nurse Practitioner Adult Health; Visit Provider Surgery | DX: D17.1 Benign lipomatous neoplasm of skin and subcutaneous tissue of trunk (principal); Z85.3 Personal history of malignant neoplasm of breast; Z15.01 Genetic susceptibility to malignant neoplasm of breast | CPT/HCPCS: 99203 ==

== ENCOUNTER 2022-10-26 08:21 | Day surgery (SDC) | payer MEDICARE, MEDICAID, SELFPAY ==
[2022-10-26 08:22] VITALS: BP 134/95; PULSE 83; RESP 17; TEMP 36.5; O2SAT 94
[2022-10-26] MEDS: Acetaminophen 500 MG TAB 1000 MG PO (08:49)
[2022-10-26] MEDS: Gabapentin 300 MG CAP 600 MG PO (08:50)
[2022-10-26] MEDS: Celecoxib 200 MG CAP PO (08:51)
[2022-10-26] MEDS: Lactated Ringers 1,000 ML 80 ML IV (09:09)
--- NOTE | 2022-10-26 10:01 | HPE_ITS ---
Assessment and Plan Assessment and plan (1) Lipoma: Status: Acute Assessment and plan: We reviewed the risks and benefits of excision and primary closure today. She provided informed consent. We will plan to send this off for pathology given her history of cancer to ensure that it is a simple lipoma. Qualifiers: Lipoma location: trunk Qualified Code(s): D17.1 - Benign lipomatous neoplasm of skin and subcutaneous tissue of trunk History of Present Illness History of Present Illness Chief Complaint: Left chest wall discomfort Narrative: Giana is a 61-year-old woman with a past medical history that is most significant for breast cancer. Over the past several months she has noticed a growth of the soft tissue mass on the left costal margin. She has discomfort associated with the pressure from her bra strap, as in some occasional changes in position. She underwent an ultrasound of the chest wall that suggest the possibility of a lipoma. PFSH All Active Problems Anxiety (Chronic 06/16/12) Atrophic vaginitis (Chronic 11/22/16) BRCA1 gene mutation positive (Chronic 03/26/13) S/P BSO-04/29 needs yearly pelvic exam per Dr. Chamberlain Cystocele with uterine prolapse (Chronic 04/03/17) 04/03/2017 #3. Ring with support Depressed bipolar I disorder (Chronic 06/16/12) Diabetes mellitus (Chronic 06/16/12) A1C 7% (07/2020) Family history of diabetes mellitus (Chronic 08/20/16) Migraine (Chronic 06/16/12) Osteoarthritis (Chronic 06/16/12) Vitamin D deficiency (Chronic 06/16/12) Scoliosis (Chronic) X-rays 03/2019: Mod R L1-L2 & mild S-type T-spine Meloxicam PRN, APAP, PT, weight management Osteopenia (Chronic) DEXA 2015 & 2019 (L hip) Aortic root dilatation (Acute) [facility] [place] GERD (gastroesophageal reflux disease) (Chronic) h/o heartburn with Tums PRN; 07/2020--epigastric & midsternal pain with eating--PPI trial Aortic aneurysm without rupture (Acute) Bilateral leg paresthesia (Acute ~12/2021) Folate deficiency (Acute ~12/2021) Supplement Flank pain (Acute) Lipoma (Acute) Medical History Cardiomyopathy Last f/u LR cards 2020 Chronic anxiety E-coli UTI (04/23/17) 04/08/2017 pansensitive. Rx with ciprofloxacin ?3 days. 04/23/2017 recurrent symptoms no urine culture obtained Rx for ciprofloxacin ?5 days. Fracture of distal radius and ulna Hand eczema Topical steroid PRN Hx of eating disorder anorexia and bulemia in adolescence. None since. Hx of migraines Midline cystocele Symptomatic since 2015. Surgical History Arthroplasty of knee (~2010) [facility]-LEFT KNEE ARTHROSCOPY WITH PARTIAL MEDIAL AND LATERAL MENISCECTOMY Bilateral salpingectomy with [place]ophorect[place] [facility] [place] removal of fallopian tubes and ovaries. No HRT. On vaginal E2 cream. Breast, Lumpectomy 2004 L breast cancer BRACA 1 + followed by Chemo and Radiation CARDIAC HEART CATH (08/15/11) [place] [facility] [place]) Ligation of fallopian tube STRESS TEST (08/15/11) [facility] [place] Tonsillectomy Family History Mother Essential hypertension Breast cancer Pancreatic cancer Father Diabetes Essential hypertension Personal history of malignant neoplasm SKIN Heart disease Hyperlipidemia Brother Essential hypertension Hyperlipidemia Grandfather Essential hypertension Personal history of malignant neoplasm LIVER Hyperlipidemia Grandfather Essential hypertension Stroke Grandmother Diabetes Personal history of malignant neoplasm BREAST Grandmother Diabetes Social History Smoking/Tobacco Use Status: Never Smoking risk assessment performed?: Yes Alcohol Intake: current Alcohol Intake frequency: holidays/special occasions only Drug use: Never Substance use type: does not use Household members: none Housing: apartment Number of Children: 3 number of grandchildren: 2 Communication Needs: Corrective Lenses Do you need help understanding health information?: Never 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 Pets and animals: Yes Pets and animals: dog(s) Sexually active: No Current gender identity: female What type of physical activity do you participate in: walking Missy/Catholic: Scientologist Seatbelt use: always Working smoke detector in home: Yes Fire extinguisher in home: Yes Carbon monox detector in home: Yes Do you feel safe at home: Yes Do you feel safe in your relationship?: Yes Female Reproductive History Menstrual control method: none History History 4 Para Hx # Term Pregnancies 3 Multiple births Hx # Pregnancies Ectopic pregnancies AB induced 1 Hx Number of Living Children AB spontaneous Past Pregnancies Del. Date GA/Weeks # Preg Succ Route Wgt Sex Labor Lgth Anesth esia Location Prov Complic 05/17/86 41 No Yes vaginal 8 lb 13 oz Male [facility] 01/29/89 41 Yes vaginal 9 lb 15 oz Male [facility] 09/06/93 40 Yes vaginal 8 lb Female [facility] Meds Allergies and Home Medications Allergies Allergy/AdvReac Type Severity Reaction Status Date / Time iodine Allergy Severe hives Verified 10/26/22 08:44 carvedilol Allergy Intermediate Other (See Verified 10/26/22 08:44 Comment) codeine [Codeine] Allergy Intermediate RASH Verified 10/26/22 08:44 Penicillins Allergy Intermediate RASH Verified 10/26/22 08:44 Sulfa (Sulfonamide Allergy Intermediate Rash Verified 10/26/22 08:44 Antibiotics) hydrocodone Allergy Mild ITCHING Verified 10/26/22 08:44 tramadol Allergy Mild Hives Verified 10/26/22 08:44 [facility] AdvReac Mild Nausea Verified 10/26/22 08:44 Home Medications Medication Instructions Recorded Confirmed Type epinephrine 0.3 mg/0.3 mL 0.3 mg (0.3 mL) IM ONCE ##1 06/20/20 10/24/22 Rx injection, auto-injector (EpiPen 2-Hi) cholecalciferol (vitamin D3) 75 75 mcg PO DAILY 07/20/20 10/26/22 History mcg (3,000 unit) tablet berberine-herbal comb no.18 capsule cap PO 09/21/20 09/25/22 History valacyclovir 500 mg tablet 500 mg PO BID #6 tabs 11/29/20 10/26/22 Rx betamethasone dipropionate 0.05 % 1 applic topical BID PRN Hand 09/11/21 10/26/22 Rx topical ointment eczema #15 grams blood sugar diagnostic (Blood #100 ea 09/11/21 10/24/22 Rx Glucose Test strips) fluticasone propionate 50 1 - 2 spray NS DAILY PRN nasal 09/11/21 10/26/22 Rx mcg/actuation nasal congestion #16 grams spray,suspension (Flonase Allergy Relief) lancets #100 ea 09/11/21 10/24/22 Rx olopatadine 0.2 % eye drops 1 drp ophthalmic (eye) DAILY PRN 09/11/21 10/26/22 Rx itching ##1 estradiol 0.01% (0.1 mg/gram) 1 appful vaginal DAILY 09/05/22 10/26/22 History vaginal cream Exam Const General: cooperative, healthy appearing and comfortable Orientation: awake and oriented x3 Eyes General: appearance normal, both eyes and all related structures Conjunctivae: conjunctivae normal Sclera: sclerae normal Chest Other: There is a 3 cm x 4 cm rubbery, slightly mobile mass along the left costal margin. Resp Effort & Inspection: normal respiratory effort and able to speak in complete sentences Auscultation: clear to auscultation bilaterally Cardio Jugular venous pressure: no JVD Rate: regular rate Rhythm: regular rhythm Heart Sounds: S1 normal and S2 normal GI Inspection: non-distended Palpation: soft, no guarding, no hernias and nontender Auscultation: normal bowel sounds Skin General skin exam: normal turgor Neuro General: patient alert, patient awake and patient oriented x3 Cognition: normal cognition Extrem Right lower extremity: no edema Left lower extremity: no edema Results Last Vital Signs Temp 97.7 F 10/26/22 08:22 Pulse 83 10/26/22 08:22 Resp 17 10/26/22 08:22 BP 134/95 H 10/26/22 08:22 Pulse Ox 94 10/26/22 08:22
--- NOTE | 2022-10-26 10:08 | W.ANESPRE ---
General Info Date of Service Date Performed: 10/26/22 Height: 5 ft 5 in Weight: 84.2 kg Body Mass Index (BMI): 30.9 Surgical Procedure: Operation Date: 10/26/22 10:10 Proposed Procedure Side Surgeon p Excision and Closure Lipoma Lt Costal Margin Left Beto Mathias MD Meds Allergies and Home Medications Allergies Allergy/AdvReac Type Severity Reaction Status Date / Time iodine Allergy Severe hives Verified 10/26/22 08:44 carvedilol Allergy Intermediate Other (See Verified 10/26/22 08:44 Comment) codeine [Codeine] Allergy Intermediate RASH Verified 10/26/22 08:44 Penicillins Allergy Intermediate RASH Verified 10/26/22 08:44 Sulfa (Sulfonamide Allergy Intermediate Rash Verified 10/26/22 08:44 Antibiotics) hydrocodone Allergy Mild ITCHING Verified 10/26/22 08:44 tramadol Allergy Mild Hives Verified 10/26/22 08:44 dulaglutide [From [facility]] AdvReac Mild Nausea Verified 10/26/22 08:44 Home Medication Medication Instructions Recorded epinephrine 0.3 mg/0.3 mL 0.3 mg (0.3 mL) IM ONCE ##1 06/20/20 injection, auto-injector (EpiPen 2-Hi) cholecalciferol (vitamin D3) 75 75 mcg PO DAILY 07/20/20 mcg (3,000 unit) tablet berberine-herbal comb no.18 capsule cap PO 09/21/20 valacyclovir 500 mg tablet 500 mg PO BID #6 tabs 11/29/20 betamethasone dipropionate 0.05 % 1 applic topical BID PRN Hand 09/11/21 topical ointment eczema #15 grams blood sugar diagnostic (Blood #100 ea 09/11/21 Glucose Test strips) fluticasone propionate 50 1 - 2 spray NS DAILY PRN nasal 09/11/21 mcg/actuation nasal congestion #16 grams spray,suspension (Flonase Allergy Relief) lancets #100 ea 09/11/21 olopatadine 0.2 % eye drops 1 drp ophthalmic (eye) DAILY PRN 09/11/21 itching ##1 estradiol 0.01% (0.1 mg/gram) 1 appful vaginal DAILY 09/05/22 vaginal cream Current Visit Medications: Current Medications Generic Name Dose Route Start Last Admin Trade Name Freq PRN Reason Stop Dose Admin Acetaminophen 1,000 mg 10/26/22 06:00 10/26/22 08:49 Acetaminophen 500 Mg Tab PO 10/26/22 23:59 500 mg PREOP CONNOR Administration Celecoxib 200 mg 10/26/22 06:00 10/26/22 08:51 Celecoxib 200 Mg Cap PO 10/26/22 16:00 200 mg PREOP CONNOR Administration Gabapentin 600 mg 10/26/22 06:00 10/26/22 08:50 Gabapentin 300 Mg Cap PO 10/26/22 23:59 600 mg PREOP CONNOR Administration Ringer's Solution 1,000 mls @ 80 mls/hr 10/26/22 06:00 10/26/22 09:09 IV 10/26/22 23:59 80 mls/hr INFUSION CONNOR Administration IV Miscellaneous Supplies 1 each 10/26/22 06:00 Iv Access IV 10/26/22 23:59 DIRECTED CONNOR Sodium Chloride 0 ml 10/26/22 06:00 Normal Saline Flush 10 Ml Syr IV 10/26/22 23:59 PRN PRN Sodium Chloride 0 ml 10/26/22 06:00 Normal Saline 10 Ml Vial IJ 10/26/22 23:59 DIRECTED PRN Sterile Water 0 ml 10/26/22 06:00 Water,Injection,Sterile 10 Ml Vial IJ 10/26/22 23:59 DIRECTED PRN PFSH Active Problems Active Problems: Problem Status Onset Code Anxiety 06/16/12 F41.9 Atrophic vaginitis 11/22/16 N95.2 BRCA1 gene mutation positive 03/26/13 Z15.01, Z15.09 Cystocele with uterine prolapse 04/03/17 N81.4 Depressed bipolar I disorder 06/16/12 F31.9 Diabetes mellitus 06/16/12 E11.9 Family history of diabetes mellitus 08/20/16 Z83.3 History of cardiomyopathy 05/06/15 Z86.79 Malignant neoplasm of female breast 12/15/04 C50.919 Migraine 06/16/12 G43.909 Osteoarthritis 06/16/12 M19.90 Vitamin D deficiency 06/16/12 E55.9 Scoliosis M41.9 Osteopenia M85.80 Aortic root dilatation I77.810 GERD (gastroesophageal reflux disease) K21.9 Aortic aneurysm without rupture I71.9 Bilateral leg paresthesia ~12/2021 R20.2 Folate deficiency ~12/2021 E53.8 Flank pain R10.9 Lipoma D17.9 Medical History Medical History Cardiomyopathy Last f/u LR cards 2020 Chronic anxiety E-coli UTI (04/23/17) 04/08/2017 pansensitive. Rx with ciprofloxacin ?3 days. 04/23/2017 recurrent symptoms no urine culture obtained Rx for ciprofloxacin ?5 days. Fracture of distal radius and ulna Hand eczema Topical steroid PRN Hx of eating disorder anorexia and bulemia in adolescence. None since. Hx of migraines Midline cystocele Symptomatic since 2015. Medical History Comments:: Per pt. states when she has Versed she gets very emotional, and distraught Surgical History Surgical History Arthroplasty of knee (~2010) [facility]-LEFT KNEE ARTHROSCOPY WITH PARTIAL MEDIAL AND LATERAL MENISCECTOMY Bilateral salpingectomy with oophorectomy [facility] [place] 2012 prophylactic removal of fallopian tubes and ovaries. No HRT. On vaginal E2 cream. Breast, Lumpectomy 2005 L breast cancer BRACA 1 + followed by Chemo and Radiation CARDIAC HEART CATH (08/15/11) LEFT; [facility] [place] (SEE SCANNED REPORT) Ligation of fallopian tube STRESS TEST (08/15/11) [facility] [place] (SEE SCANNED REPORT) Tonsillectomy Tobacco Smoking/Tobacco Use Status: Never Alcohol Alcohol Intake: current Alcohol intake frequency: holidays/special occasions only Substance Use Substance use: Never Substance use type: does not use Prental History History 4 Para Hx # Term Pregnancies 3 Multiple births Hx # Pregnancies Ectopic pregnancies AB induced 1 Hx Number of Living Children AB spontaneous Past Pregnancies Del. Date GA/Weeks # Preg Succ Route Wgt Sex Labor Lgth Anesthesia Location Prov Complic 05/17/86 41 No Yes vaginal 3997.283 g Male [facility] 01/29/89 41 Yes vaginal 4507.574 g Male [facility] 09/06/93 40 Yes vaginal 3628.739 g Female [facility] Vital Signs and Lab Results Vital Signs Most Recent Vital Signs in EMR: Most Recent Vital Signs Temp Pulse Resp BP Pulse Ox 36.5 C 83 17 134/95 H 94 10/26/22 08:22 10/26/22 08:22 10/26/22 08:22 10/26/22 08:22 10/26/22 08:22 Point of Care Results Point of Care Results: Finger Stick Blood Glucose 147 10/26/22 09:07 Lab Results Blood Type / Crossmatch: No Data to Display Complete Blood Count: No Data to Display Complete Metabolic Panel: No Data to Display Liver Function Panel: No Data to Display Coagulation Panel: No Data to Display Cardiac Panel: No Data to Display Arterial Blood Gas: No Data to Display Venous Blood Gas: No Data to Display Pancreas Panel: No Data to Display Thyroid Panel: No Data to Display Infectious Disease: No Data to Display Blood Cultures: No Data to Display Toxicology Panel: No Data to Display Anesthesia Assessment and Plan Anesthesia History Personal History: No History of Anesthesia Complications and Other Family History: No Family History of Anesthesia Complications Exercise Tolerance Exercise Tolerance: Metabolic Equivalents>4 Pertinent Negatives Pertinent Negatives: No Symptoms of GERD Cardiac & Pulmonary Exam Cardiac Exam: Normal S1/S2 Heart Sounds Pulmonary Exam: Clear Bilateral Breath Sounds Implantable Cardiac Device Does patient have a Pacemaker or an ICD?: No Airway Exam Known Difficult Airway: No Mallampati Class: 2 Mouth Opening: Normal (> 3cm) Thyromental Distance: Greater than 3 cm Neck Range of Motion: Full ROM Neck Circumference: Normal Teeth Condition: Normal Dentition ASA Classification ASA Score: ASA 2 Emergency Case?: No NPO Status NPO Status: NPO Clears >2 hours, Solids >8 hours Anesthesia Plan Resuscitation Status: Full Code Anesthesia Technique: MAC Anesthesia Airway Planned: Natural Airway Monitors Used: Standard Monitors
[2022-10-26 10:11] VITALS: BMI 30.9
[2022-10-26] MEDS: Bupivacaine 0.25% Pres-Free 30 ML VIAL (10:42)
--- NOTE | 2022-10-26 10:55 | SOFT_PTH ---
PATIENT: Rebeca Hernández LOC: [facility] U#:[id number] AGE/SX: 61/F ROOM: RE10/26/[address]: Beto Mathias MD : 1960 BED: DIS: 10/26/2022 SPEC #: [id number] RECD: 10/26/22 15:28 STATUS: LION REPaulina #: [id number] CLEO: 10/26/22 10:[address]: Beto Mathias DEPT: Surgical Specimen RECD BY: Tabitha Gallagher ENTERED: 10/26/22 15:28 SP TYPE: SOFT OTHR DR: Dena Alfonso APRN Tissues: 1 - SOFT TISSUE MISC (INC. LIPOMA) Procedures: GROSS AND MICRO LEVEL 3 Comments: [id number]
[2022-10-26 11:13] VITALS: BP 99/71; PULSE 74; RESP 17; TEMP 36.4; O2SAT 94
--- NOTE | 2022-10-26 11:14 | ROE_ITS ---
Date of service: 10/26/22 Time of Service: 11:14 Operative Note Operative Note DATE OF PROCEDURE: 10/26/22 PRE-OP DIAGNOSIS: Left costal margin lipoma POST-OP DIAGNOSIS: same PROCEDURE: Excision and primary closure of left costal margin lipoma SURGEON: Beto Mathias AIRPLANE PATROL PILOT: Keyla Simmons ANESTHESIA TYPE: Local By Surgeon and MAC Refer to Anesthesia Record ESTIMATED BLOOD LOSS: 20 PATHOLOGY: other (Left costal margin lipoma) COMPLICATIONS: None Patient was transported to: same day Patient's condition: stable Indications: Rebeca is a 61-year-old woman who presents with several weeks of a slightly enlarging and uncomfortable lump on the left costal margin. She underwent an ultra sound that suggested a lipoma. Procedure Description: Prior to the procedure, I confirmed the location with the patient, and used bedside ultrasound as well. Once in the operating room, I began by prepping and draping the left costal margin. Next, using sterile technique, I administered local anesthetic to establish a generous field block. Next, I used a 15 blade scalpel to incise the skin overlying the dominant portion of the lump. I dissected down through all layers of the skin using a combination of blunt dissection, as well as sharp technique. Gentle pressure was used to assist with hemostasis. As we dissected down through the subcutaneous fat, it was evident that there was a lobular area of fat consistent with a lipoma. Dissection was carried out around the mass, down to the level of the fascia overlying the costal margin. The mass was then delivered through the incision, and the underside was completely divided. Specimen was passed off the field as a lipoma . Surgical site was then irrigated. There was a minimal amount of bleeding from the fat that was easily controlled with Bovie. The deep layers were then closed with interrupted Vicryl stitches, and the skin was closed with a running subcuticular suture. Bandages were applied, the patient was allowed to wake up from the anesthetic and transferred to the day surgery unit.
--- NOTE | 2022-10-26 11:18 | PDOC.DSDIS_ITS ---
Date of service: 10/26/22 Time of Service: 11:18 Discharge Plan Disposition Patient Disposition: Home Condition: Good Discharge Details Reason For Visit: Excision and primary closure Attending Provider: Beto Mathias Primary Care Provider: Dena Alfonso Home Meds and New Rx's Prescriptions: Continued berberine-herbal comb no.18 Capsule PO cholecalciferol (vitamin D3) 75 mcg (3,000 unit) tablet 75 mcg PO DAILY betamethasone dipropionate 0.05 % ointment 1 applic topical BID PRN (Reason: Hand eczema) Qty: 15 1RF Rx Instructions: Use thin layer mixed with emollient for hand eczema; use for shortest duration fluticasone propionate [Flonase Allergy Relief] 50 mcg/actuation spray,suspension 1 - 2 spray NS DAILY PRN (Reason: nasal congestion) Qty: 16 4RF olopatadine 0.2 % drops 1 drp Ophthalmic DAILY PRN (Reason: itching) Qty: 1 0RF Rx Instructions: allergic itching estradiol 0.01 % (0.1 mg/gram) cream 1 appful vaginal DAILY Rx Instructions: for 14 days epinephrine [EpiPen 2-Hi] 0.3 mg/0.3 mL auto-injector 0.3 mg IM ONCE Qty: 1 0RF Rx Instructions: administer for bee sting, call 911 valacyclovir 500 mg tablet 500 mg PO BID Qty: 6 1RF Rx Instructions: 1 tab BID for 3 days PRN outbreak. (DME) lancets Misc See Rx Instructions .MEDSUPPLY Qty: 100 3RF Rx Instructions: E11.9 for daily monitoring for A1C <7%; any brand ok (DME) Blood Glucose Test Strip See Rx Instructions .MEDSUPPLY Qty: 100 3RF Rx Instructions: As directed to check blood glucose daily. No insulin. Dispense covered brand. Discharge Instructions Additional Instructions: Giana, we were able to excise that lipoma today without any difficulty. Grossly, the tissue does seem consistent with a lipoma. However, based on your history, and as we talked about before, I will send it off for pathologic confirmation. I asked that copies of the pathology report be available to Dr. Bernardo and Dena Alfonso as well. Expect to have a little bit of pain in the area as the local anesthetic wears off over the next few hours. Tylenol and ibuprofen will be fine to use to help with the discomfort. You can remove the Band-Aid tomorrow, and you should shower with warm soapy water and clean the incision at least once per day. Follow the instructions below, we look forward to seeing you in the office on the for a check of the incision. If you have any questions at all in the meantime, please do not hesitate to call. 1. Resume all of your medications. 2. Heating pads and ice packs are fine to use for your discomfort 3. Okay to use tylenol and ibuprofen over the counter as needed for pain 4. Leave bandage in place for 24 hours, then remove. 5. Shower with warm soapy water. Pat dry. Use a bandaid if needed to protect your clothing. 6. No soaking or tub baths until I see you in the office. 7. No heavy lifting until I see you in the office. 8. Call the office (or go directly to the emergency room after hours) if you notice any of the following: Develop chills (warm to touch), or if you have a thermometer and your temperature is above 101 Difficulty breathing or difficultly swallowing Persistent vomiting Any bleeding ? exceeding one tablespoon 6. Call your physician if the site where your intravenous was started becomes red, swollen, painful, and warm to touch. Referrals: Beto Mathias MD [ [facility] STAFF PHYSICIAN] - Activity:: Activity as Tolerated Remove Dressings/Wound Care:: 24 hours Shower/Bathe:: 24 hours Diet:: As Tolerated Discharge Orders Discharge Orders: Discharge Order (Routine); Ordered 10/26/22 Ordered By: Beto Mathias DS: Diagnosis Discharge Diagnosis (1) Lipoma: Status: Acute Asessment and Plan: Follow-up on pathology results. Follow-up in the office on November 05 for wound check
--- NOTE | 2022-10-26 11:32 | W.ANESPOSTOP ---
Postoperative Evaluation Date, Time and Location Date Performed: 10/26/22 Time Performed: 11:32 Patient Location: Day Surgery Unit Vital Signs Most Recent Imported Vital Signs: Most Recent Vital Signs Temp Pulse Resp BP Pulse Ox 36.5 C 83 17 134/95 H 94 10/26/22 08:22 10/26/22 08:22 10/26/22 08:22 10/26/22 08:22 10/26/22 08:22 Pain Score Most Recent Pain Score: Most Recent Pain Score Pain Level 0 10/26/22 08:22 Assessment Mental Status: Awake (Alert & Oriented to Patient Baseline) Airway and Respiratory Function: Patent airway with normal (patient baseline) respiratory exam Cardiovascular Function: Hemodynamically Stable Hydration Status: Adequately Hydrated Nausea & Vomiting: No Nausea or Vomiting Pain: Pt. Denies Any Pain Peripheral Nerve Block: Patient did not receive a nerve block
[2022-10-26 11:43] VITALS: BP 134/84; PULSE 57; RESP 18; TEMP 36.6; O2SAT 100
== END 2022-10-26 12:25 | disposition home or self-care (01) ==
PROVIDERS: PCP Nurse Practitioner Adult Health; Visit Provider Surgery
PROC: (CPT 21552; principal; 2022-10-26 10:00)
DX: D17.1 Benign lipomatous neoplasm of skin and subcutaneous tissue of trunk (principal); Z85.3 Personal history of malignant neoplasm of breast
CPT/HCPCS: 21552; 88304; J1100; J1885; J2405; J2704

== ENCOUNTER → 2022-11-05 07:50 | Outpatient (BNVA) | payer MEDICARE, MEDICAID, SELFPAY | PROVIDERS: PCP Nurse Practitioner Adult Health; Referring Provider Nurse Practitioner Adult Health; Visit Provider Surgery | DX: D17.1 Benign lipomatous neoplasm of skin and subcutaneous tissue of trunk (principal); Z48.02 Encounter for removal of sutures ==

== ENCOUNTER 2022-12-10 10:38 | Outpatient (REF) | payer MEDICARE, MEDICAID, SELFPAY ==
[2022-12-12 13:16] LABS: Chlamydia Result Negative (Negative); GC Result Negative (Negative)
== END 2022-12-10 10:39 | disposition home or self-care (01) ==
LOC: LBN 10:38
PROVIDERS: PCP Nurse Practitioner Adult Health; Visit Provider Physician Assistant
DX: R30.0 Dysuria (principal); N39.0 Urinary tract infection, site not specified; Z11.3 Encounter for screening for infections with a predominantly sexual mode of transmission
CPT/HCPCS: 87491; 87591; 87086; 87480; 87510; 87660

== ENCOUNTER → 2023-10-03 03:29 | Outpatient (CLI) | payer MEDICARE, MEDICAID, SELFPAY ==
--- NOTE | 2023-10-03 14:00 | DI.US_ITS ---
APPROVED REPORT EXAM: Comprehensive 2D, Doppler, and color-flow Echocardiogram Patient Location: Out-Patient Rn Referral: Claudia Ochoa RDCS (AE) Indications: H/o Cardiomyopathy, heart failure with reduced ejection fraction, f/u [facility] echo Other Information Study Quality: Adequate Conclusion Normal left ventricular wall thickness and chamber size. EF is 55-60%. Wall motion i snormal Normal right ventricular size and function Both atria are normal in size There is no structural or hemodynamically significant valvular disease Mildly dilated aortic root (3.57 cm ) Borderline dilated ascending aorta (3.42 cm) Wall motion Left Ventricle The left ventricle is normal size. The left ventricular systolic function is normal. The left ventric ular ejection fraction is within the normal range. There is normal left ventricular wall thickness. T here is normal LV segmental wall motion. There is no ventricular septal defect visualized. LVEF is 56 %. Right Ventricle The right ventricle is normal size. The right ventricular systolic function is normal. Atria The left atrium size is normal. The right atrium size is normal. The interatrial septum is intact wit h no evidence for an atrial septal defect. Aortic Valve The aortic valve is normal in structure. Aortic valve is trileaflet. There is no aortic valvular sten osis. No aortic regurgitation is present. Mitral Valve The mitral valve is normal in structure. No evidence of mitral valve stenosis. Trace mitral regurgit ation. Tricuspid Valve The tricuspid valve is normal in structure. There is no tricuspid valve stenosis. Trace tricuspid reg urgitation. The RVSP is 15.3 mmHg. Pulmonic Valve The pulmonary valve is normal in structure. There is no pulmonic valvular stenosis. Trace pulmonic re gurgitation. Great Vessels Aortic root is mildly dilated. The ascending aorta is mildly dilated. Aortic arch is normal in calib er. IVC is normal in size and collapses >50% with inspiration. Pericardium There is no pericardial effusion. 2D Dimensions IVSD d PLAX 0.86 cm F: 0.6-1.0 Ao Root d 3.57 cm F: 2.7 - 3.3 LVPW d PLAX 0.85 cm F: 0.6 - 1.0 Ao Asc Diam d 3.42 cm F: 2.3 - 3.1 LVID d PLAX 4.60 cm F: 3.8 - 5.2 LVDs 3.25 cm F: 2.2 - 3.5 LV EF Teichholz 56.2 % FS 29.28 % LV EDV (Teich) 97.1 mL LV ESV (Teich) 42.5 mL M-Mode TAPSE 1.60 cm (M/F) >1.7 Auto EF LV EDV A4C 94.7 mL LV EDV A2C 96.1 mL LV EDV BP 97.3 mL LV ESV A4C 41.9 mL LV ESV A2C 43.6 mL LV ESV BP 42.7 mL LVEF(%) A4C 55.8 % LVEF(%) A2C 54.7 % LVEF(%) BP 56.2 % LV SV A4C 52.8 ml LV SV A2C 52.6 ml LV SV BP 54.7 ml LV CO A4C 3.5 L/min LV CO A2C 3.9 L/min LV CO BP 3.7 L/min HR A4C 65.34 BPM HR A2C 73.62 BPM LV EDV Index (BP) LA Volume LA Length A4C 4.0 cm LA Length A2C 4.3 cm LA Area A4C s 12.38 cm2 LA Area A2C s 13.69 cm2 LA Vol A4C A-L 32.24 mL LA Vol A2C A-L 37.01 mL LA Vol Biplane A-L 35.6 mL LA Vol/BSA A4C A-L LA Vol/BSA A2C A-L LA Vol/BSA BP A-L 13.2 mL/m2 LA Vol A4C MOD 28.9 mL LA Vol A2C MOD 34.3 mL LA Vol BP MOD 32.3 mL RA Volume RA Area A4C 11.8 cm2 RA ESV A4C (A-L) 28.0mL RA Vol/BSA A4C A-L RA Length A4C 4.3 cm RA ESV A4C (MOD) 26.1mL LV Diastology MV E' medial 0.054 (>0.07 m/s) MV E Vmax 0.43 (0.4-1.3 m/s) MV E/E' MED 7.88 (<14) MV A Vmax 0.70 (0.4-1.3 m/s) MV E' lateral 0.062 (>0.1 m/s) E/A Ratio 0.6 MV E/E' LAT 6.96 (<14) MV E' Average 0.058 m/s MV E/E'(average) 7.39 Aortic Valve AoV Vmax 1.15 m/s LVOT Vmax 0.88 m/s AoV Peak Grad 5.3 mmHg LVOT Peak Grad 3.1 mmHg AoV Area (Vmax) 2.65 cm2 LVOT VTI 0.187 m AoV VTI 0.233 m LVOT Mean Grad 1.8 mmHg AoV Mean Chong. 0.85 m/s LVOT SV 64.62 mL AoV Mean Grad 3.2 mmHg LVOT Diam s 2.05 cm AoV Area (VTI) 2.78 cm2 Velocity Ratio 0.77 Mitral Valve MV DT 213 (160-240 msec) MV Vmax TIPS 0.79 m/s MV Mean Grad 0.7 (<2mmHg) MV VTI 0.176 m Pulmonary Valve PV Vmax 0.97 (0.5-1.5 m/s) RVOT Vmax 0.50 m/s PV Peak Grad 3.7 mmHg RVOT Peak Gr. 1.0 mmHg PV Mean Chong 0.68 m/s RVOT VTI 0.100 m PV Mean Grad 2.1 mmHg RVOT Mean Gr. 0.6 mmHg Tricuspid Valve RA Pressure 3.00 mmHg TR Vmax 1.76 m/s TV S' 0.12 m/s TR Peak Grad 12.3 mmHg RVSP (TR) 15.3 mmHg
== END ==
PROVIDERS: PCP Nurse Practitioner Adult Health; Visit Provider Nurse Practitioner Adult Health
DX: Z86.79 Personal history of other diseases of the circulatory system (principal); I50.20 Unspecified systolic (congestive) heart failure
CPT/HCPCS: 93306

== ENCOUNTER → 2023-10-17 12:13 | Outpatient (CLI) | payer MEDICARE, MEDICAID, SELFPAY ==
--- NOTE | 2023-10-17 11:00 | DI.RAD_ITS ---
Exam(s) XR CHEST 2V PA LATERAL EXAM: XR CHEST 2V PA LATERAL CLINICAL HISTORY: cough, uri, eval for pneumonia. TECHNIQUE: 2D digital imaging was performed. COMPARISON: No exams were available for comparison FINDINGS: 2 views: Heart size is normal. The mediastinum is not widened. Lungs are clear. No infiltrates nor pleural effusions. IMPRESSION: No acute pulmonary findings. DATA REPOSITORY: RADIATION DOSE DELIVERED:
== END ==
PROVIDERS: PCP Nurse Practitioner Adult Health; Visit Provider Student in an Organized Health Care Education/Training Program
DX: R05.9 Cough, unspecified (principal)
CPT/HCPCS: 71046

== ENCOUNTER → 2024-01-02 01:26 | Outpatient (CLI) | payer MEDICARE, MEDICAID, SELFPAY ==
--- NOTE | 2024-01-02 06:00 | ETT_ITS ---
APPROVED REPORT Exam: Exercise Treadmill Patient Location: Out-Patient Room/Bed: Stress Nurse: Pita Gallardo RN Ordering Provider:TAMARDONTA RANDOLPH, Contact Number: [phone] BMI: 31.28 Baseline Rhythm: Sinus Rhythm Indications: Chest pain, palpitations Medical History Medical History: GERD, OA, DM, bipolar disorder, anxiety, aortic root dilation, cardiomyopathy Cardiac Medications: None Allergies: Hydrocodone, iodine, penicillins, sulfa, carvedilol Cardiac Risk Factors: Family hx, diabetes Previous Cardiac Procedures: cardiac cath w/o intervention Pretest Chest Pain Characteristics: None Exercise History: Indeterminate Physical Disabilities: None Lung Sounds: Clear to auscultation Heart Sounds: Regular Stress Test Details Test: Exercise stress testing was performed using a Juan Ramon protocol. Rest Stress HR Resting HR Supine: 71 bpm Max Heart Rate (APMHR): 158 bpm Resting HR Standin bpm Target HR (85% APMHR): 134 bpm Max HR Achieved: 136 bpm % of APMHR: 86 Recovery HR: 83 bpm HR response to stress: Normal HR response to stress BP Resting BP Supine: 128/70 mmHg Resting BP Standin/80 mmHg Max BP: 164 /82 mmHg Recovery BP: 124/76 mmHg BP response to stress: Normal blood pressure response to stress. ECG Resting ECG: Sinus Rhythm Ectopy: None Stress ECG: Sinus Tachycardia ST Change: No significant ST segment changes noted Arrhythmia: Occasional PVC's Recovery ECG: Sinus Rhythm Recovery ST Change: No significant ST segment changes noted Recovery Arrhythmia: Occasional PVC's, rare PAC Clinical Reason for Termination: Fatigue, Target HR Achieved Stress Symptoms: General Fatigue, 4/10 chest/shoulder ache Exercise duration: 09 min05 sec Highest Stage Reached: Stage 3: 3.4 mph at 14% grade. Exercise capacity: 10.31 METs Angina Score: Non-Limiting Rate Pressure Product: [id number] Stress ECG Conclusion 1. Resting electrocardiogram was normal 2. Patient exercised on the Juan Ramon protocol completed a workload of 10.31 METS 3. Normal heart rate and blood pressure response to exercise. The patient achieved 86% of maximal pr edicted heart rate for age 4. There was no electrocardiographic evidence of myocardial ischemia 5. There were no significant dysrhythmias Stress Test Summary STAGE Time (mins) Speed (mph) Grade (%) HR BP SpO2 SYMPTOMS METS Supine 71 128/70 93 Standing 82 120/80 1 3 1.7 10 104 132/78 94 4.5 2 6 2.5 12 115 160/80 95 4/10 chest ache 7 3 9 3.4 14 135 10 1 min recovery 120 164/82 98 4/10 chest/shoulder ache 3 min recovery 77 150/80 6 min recovery 83 124/74 94 All symptoms resolved.
== END ==
PROVIDERS: PCP Nurse Practitioner Adult Health; Visit Provider Nurse Practitioner Adult Health
DX: R00.2 Palpitations (principal); R07.9 Chest pain, unspecified
CPT/HCPCS: 93016; 93018; 93017

== ENCOUNTER 2024-01-03 08:06 | Outpatient (RCR) | payer MEDICARE, MEDICAID, SELFPAY | END 2024-01-15 23:59 | disposition home or self-care (01) | LOC: CARDOPNVT 08:06 | PROVIDERS: PCP Nurse Practitioner Adult Health; Visit Provider Nurse Practitioner Adult Health | DX: R07.9 Chest pain, unspecified (principal); R00.2 Palpitations | CPT/HCPCS: 93227; 93226 ==

== ENCOUNTER 2024-01-08 14:17 | Outpatient (REF) | payer MEDICARE, MEDICAID, SELFPAY ==
--- NOTE | 2024-01-08 14:01 | PAPFT_PTH ---
PATIENT: Rebeca Hernández LOC: [facility] U#:[id number] AGE/SX: 63/F ROOM: RE01/08/[address]: Alondra Rushing MD : 1960 BED: DIS: 01/08/2024 SPEC #: [id number] RECD: 01/08/24 17:46 STATUS: LION REPaulina #: [id number] CLEO: 01/08/24 14:[address]: Alondra Rushing DEPT: [facility] Cytology RECD BY: Tabitha Gallagher ENTERED: 01/08/24 17:47 SP TYPE: PAPFT ILIANA DR: Dena Alfonso APRN Tissues: 1 - CX/ENDOCX FOR PAP SMEARS Procedures: PAP THIN PREP/UVM Screening Comments: [id number] (UNSATISFACTORY FOR EVALUATION)
== END 2024-01-08 14:18 | disposition home or self-care (01) ==
LOC: LBN 14:17
PROVIDERS: PCP Nurse Practitioner Adult Health; Visit Provider Obstetrics & Gynecology
DX: N89.8 Other specified noninflammatory disorders of vagina (principal); R35.0 Frequency of micturition; Z12.4 Encounter for screening for malignant neoplasm of cervix
CPT/HCPCS: 88142; 87086; 87480; 87510; 87660

== ENCOUNTER 2024-02-27 12:33 | Emergency (ER) | payer MEDICARE, MEDICAID, SELFPAY ==
[2024-02-27 12:36] VITALS: BP 147/92; PULSE 70; RESP 12; TEMP 36.6; O2SAT 99
--- OUTSIDE RECORDS SUMMARY | 2024-02-27 12:41 | XMS_ITS | Clinical Summary ---
Author Organization [facility] Address [address] [place] [address] Care Team Providers Care Classified Ad Clerk Name Role Phone Dena Alfonso LIZABETH Primary Care Provider [phone] Encounters Date Type Department Care Team Description 01/09/2024 Lab Requisition [facility] Pathology & Laboratory Medicine - [address] [address] Alondra Rushing MD Encounter for other general examination from Last 3 Months Social History Tobacco Use Types Packs/Day Years Used Date Smoking Tobacco: Never Assessed Sex and Gender Information Value Date Recorded Sex Assigned at Not on file Gender Identity Not on file Sexual Orientation Not on file Plan of Treatment Health Maintenance Due Date Last Done Comments Hepatitis C Screen 1960 RSV Immunization ( o r 60+ Years) (1 - 1-dose 60+ series) 2021 COVID-19 Vaccine ( season) 2024 Procedures Procedure Name Priority Date/Time Associated Diagnosis Comments PAP TEST Today 01/08/2024 14:01 EDT Encounter for other general examination from Last 3 Months Results * PAP TEST (01/08/2024 14:01 EDT) Specimens A. Cervix and/or Endocervix , ThinPrep Imaging System with Manual Evaluation 01/14/2024 10:56 EDT [facility] Specimen Adequacy Unsatisfactory for evaluation-Insuf ficient number of squamous epithelial cells. Specimen processed and examined but preparation compromised by lubricant or other vaginal contaminant. 01/14/2024 10:56 EDT [facility] General Categorization Unsatisfactory 01/14/2024 10:56 T [facility] Educational Comments Unsatisfactory - Specimen processed and examined, but unsatisfactory for evaluation of epithelial abnormality. Recommend repeat age-based screening after 2-4 months per ASCCP Guidelines which may be found at www.asccp.org. HPV testing will not be performed due to the potential for false negative results. 01/14/2024 10:56 EDT [facility] Attestation . 01/14/2024 10:56 T [facility] at 1056 Clinical History See below 01/14/20 10:56 EDT [facility] Performing Lab [facility] 01/14/2024 10:56 EDT [facility] Scanned Images 01/14/2024 10:56 T [facility] Pap Test CERVIX UTERI STRUCTURE / Unknown 01/08/2024 14:01 EDT 01/09/2024 11:12 EDT Alondra Rushing MD PATHOLOGY ORDERABLES [facility] [address] [place] [address] from Last 3 Months Care Teams Classified Ad Clerk Relationship Specialty Start Date End Date Dena Alfonso APRN [address] [place] [address] PCP - General Family Medicine - [facility] 10/15/22
--- OUTSIDE RECORDS SUMMARY | 2024-02-27 12:41 | XMS_ITS | Encounter Summary ---
Author Organization [facility] Address [address] [place] [address] Care Team Providers Care Line Construction Superintendent Name Role Phone Md VIET Amaya Primary Care Provider Dena Short APRN Primary Care Provider [phone] Encounter Details Date Type Department Care Team (Late st Contact Info) Description 10/27/2019 Lab Requisition [facility] Pathology & Laboratory Medicine - [facility] [address], [place] [address] Outr Resulting Lab, Provider Social History Tobacco Use Types Packs/Day Years Used Date Smoking Tobacco: Never Assessed Sex and Gender Information Value Date Recorded Sex Assigned at Not on file Gender Identity Not on file Sexual Orientation Not on file documented as of this encounter Plan of Treatment Not on file documented as of this encounter Procedures Procedure Name Priority Date/Time Associated Diagnosis Comments ZZCOVID-19 TEST [facility] PCR Today 10/27/2019 13:32 EDT COVID-19 TESTING Routine 10/27/2019 13:3 2 EDT documented in this encounter Results * COVID-19 TEST [facility] PCR (10/27/2019 13:32 EDT) Swab ENTIRE NASOPHARYNX / Unknown 10/27/2019 13:32 EDT 10/27/2019 20:22 EDT Provider Outr Resulting Lab MICROBIOLOGY - GENERAL ORDERABLES [facility] [address] [place] [address] * COVID-19 TESTING (10/27/2019 13:32 EDT) COVID-19 rt-PCR Result Negative Negative 10/28/2019 17:13 EDT [facility] Comment: Negative results do not preclude 2019-nCoV infection and should not be used as the sole basis for treatment or other patient management decisions. Negative results must be combined with clinical observations, patient history, and epidemiological information. This test was developed and its performance characteristics determined by [facility]. It has not been cleared or approved by the US Food and Drug Administration. FDA does not require this test to go through premarket FDA review. This test is used for clinical purposes. It should not be regarded as investigational or for research. This laboratory is certified under the Clinical Laboratory Improvement Amendments (CLIA) as qualified to perform high complexity clinical laboratory testing. This test is based on the CDC COVID-19 Emergency Use Authorization (EUA) assay, with minor modification as defined by the FDA Performed on the [employer] Fast. Performing Lab [facility] 10/28/2019 17:13 EDT [facility] Swab ENTIRE NASOPHARYNX / Unknown 10/27/2019 13:32 EDT 10/27/2019 20:22 EDT Provider Outr Resulting Lab MICROBIOLOGY - GENERAL ORDERABLES [facility] [address] [place] [address] documented in this encounter Visit Diagnoses Not on filedocumented in this encounter Care Teams Line Construction Superintendent Relationship Specialty Start Date End Date Md Amaya MD PCP - General 04/29/15 10/14/22 Dena Alfonso APRN [address] [place] [address] PCP - General Family Medicine - [facility] Medicine 10/15/22 documented as of this encounter
--- OUTSIDE RECORDS SUMMARY | 2024-02-27 12:41 | XMS_ITS | Encounter Summary ---
Author Organization [facility] Address [facility] [place] [address] Care Team Providers Care Nursing Unit Coordinator Name Role Phone Dena Alfonso APRN Primary Care Provider [phone] Encounter Details Date Type Department Care Team (Latest Contact Info) Description 10/16/2023 Travel Social History Tobacco Use Types Packs/Day Years Used Date Smoking Tobacco: Never Smokeless Tobacco: Never Comments:only exposure was a s a child Alcohol Use Standard Drinks/Week Comments Yes 1 (1 standard drink = 0.6 oz pur e alcohol) Occasionally Sex and Gender Information Value Date Recorded Sex Assigned at Not on file Gender Identity Not on file Sexual Orientation Not on file documented as of this encounter Plan of Treatment Upcoming Encounters Date Type Department Care Team (Late st Contact Info) Description 03/27/2024 11:00 AM EDT Office Visit Hematology/Oncology at [address] [id number] El Bernardo MD [facility] [place] [address] Linda Tamayo [address] HEMATOLOGY AND ONCOLOGY [place], [place] [id number] 04/21/2024 8:00 AM EST Appointment Mammography/[place] [address] Linda Tamayo [address] HEMATOLOGY AND ONCOLOGY [place], [place] [id number] documented as of this encounter Visit Diagnoses Not on filedocumented in this encounter Care Teams Nursing Unit Coordinator Relationship Specialty Start Date End Date Dena Alfonso APRN [address] [place] [address] PCP - General Geriatric Medicine 10/12/16 documented as of this encounter
--- OUTSIDE RECORDS SUMMARY | 2024-02-27 12:41 | XMS_ITS | Clinical Summary ---
Author Organization [facility] Address [facility] [place] [address] Care Team Providers Care Marketing Effectiveness Manager Name Role Phone Dena Alfonso APRN Primary Care Provider [phone] Allergies Active Allergy Reactions Criticality Noted Date Comments Carvedilol Rash Medium 09/05/2011 Other reaction(s): Other (See Comment) Codeine Medium 07/27/2020 Other reaction(s): RASH Codeine Phosphate Rash Hydrocodone Low 07/27/2020 Other reaction(s): ITCHING Iodine Hives,Itching High 04/28/2014 Other reaction(s): hives Morphine Itching Medium 08/08/2011 Extreme itching Penicillins Rash Medium 07/27/2020 Other reaction(s): RASH Sulfa (Sulfonamide Antibiotics) Medium 07/27/2020 Other reaction(s): Rash Tramadol Hives High 03/18/2013 Other reaction(s): Hives Midazolam Other (See Comments) 09/12/2022 overly emotional Hydrocodone-Acetaminoph en Rash 10/28/2012 Medications Medication Sig Dispensed Refills Start Date End Date Status cholecalciferol, Vitamin D3, 50 mcg (2,000 unit) Capsule Take by mouth daily. Act avila EPINEPHrine (EPIPEN) 0.3 mg/0.3 mL (1:1,000) Auto-Injector Inject 0.3 mLs into the muscle once as needed (difficulty breathing, throat swelling, loss of consciousness) for up to 1 dose. Call 641. 2 each 1 06/16/2014 Active Additional Information Patient not taking.Reported on 03/29/2023 cetirizine (ZYRTEC) 10 mg Tablet Take 10 mg by mouth daily as needed for Allergies. Reported on 10/12/2016 Active valACYclovir (VALTREX) 500 mg Tablet Take 1 tablet by mouth 2 times daily. 6 tablet 10/24/2016 Active fluticasone (FLONASE) 50 mcg/actuation [place], Suspension 1 spray by Each Nare route daily as needed. Activ e olopatadine (PATADAY) 0.2 % Drops INSTILL 1 DROP INTO AFFECTED EYE S ONCE DAILY NEEDED 3 12/12/2017 Active ONETOUCH VERIO Strip USE TO TEST DAILY. GOAL A1C IS LESS THAN 7 3 10/20/2018 Active ONETOUCH VERIO IQ METER Misc USE TO TEST DAILY. GOAL A1C LESS THAN 7 0 10/20/2018 Active ONE TOUCH DELICA 33 gauge Misc USE TO TEST DAILY. GOAL A1C IS LESS THAN 7 3 10/20/2018 Active augmented betamethasone dipropionate (DIPROLENE-AF) 0.05 % Ointment apply on a twice daily basis as needed for her hand eczema 45 g 3 05/27/2020 Active Berb Moreira/herbal complex no.18 (BERBERINE-HERBAL COMB NO.18 ORAL) Take 500 mg by mouth 3 times daily. For antihyperglycemic effects Active acetaminophen (Tylenol) 500 mg Tablet Take 1,000 mg by mouth every 6 hours as needed for Pain. Active estradioL (ESTRACE) 0.01 % (0.1 mg/gram) CreamIndications:V aginal atrophy Place one gram vaginally every night for two weeks then one gram vaginally twice a week at night. 30 g 5 09/04/2022 Active Additional Information Patient not taking.Reported on 03/29/2023 estradioL (ESTRACE) 0.01 % (0.1 mg/gram) Cream daily. 09/05/2022 Active estradioL (ESTRACE) 0.01 % (0.1 mg/gram) Cream INSERT 1 GRAM VAGINALLY EVERY NIGHT AT BEDTIME FOR 2 WEEKS THE 1 GRAM TWICE A WEEK AT BEDTIME DIRECTED - STORE AT ROOM TEMPERATURE IN A DRY PLACE 09/04/2022 Active Active Problems Problem Noted Date Diagnosed Date Aortic root dilatation 03/29/2021 History of bilateral oophorectomy 03/29/2021 History of left heart catheterization (LHC) 03/17 Malignant neoplasm of skin 03/29/2021 Aortic aneurysm without rupture 09/08/2020 Overview (09/26/2020): 06/2020: Root 46 mm, Ascending 38 mm 12/2017: Root 36 mm, Ascending 32 mm Assessment & Plan (09/26/2020 8:34 AM EDT): Patient asked many good questions regarding the aortopathy. I relayed that I though the increase in size from 2018, in the absence of uncontrolled HTN, kidney disease, or smoking, was rather odd and likely represented measuring error. The next step thusly is to confirm/refute with CT of the aorta Osteopenia 09/08/2020 Scoliosis 09/08/2020 Diabetes mellitus type 2, diet-controlled 2014 Bipolar I disorder with depression 06/16/2012 Migraine headache 06/16/2012 BRCA1 positive 12/16/2011 Breast cancer 08/12/2011 Overview (12/17/2013): A. S/P partial L mastectomy 2004 B. Treated with cytoxan and doxorubicin and radiation therapy. C. BRAC1 pos- bilat oophorectomy in 04/2013 prophylactically Depression 08/12/2011 Chest pain 08/12/2011 Overview (08/12/2011): A. Stress test [facility] 06/28: exercised to 10.1 METs and 152 bpm. Neck pain at 6 mins. No EKG changes. Cardiomyopathy 08/12/2011 Overview (09/05/2011): A. Echo 2011: LVEF 45% with global HK. B. Cardiac cath 08/15/11: Nl coronary arteries. LVEF 55%. LVEDP 13. C. H/O breast cancer. Treated with 6 cycles doxorubicin (total 360 mg/m2) and cyclophosphamide - complete in 2005. Pretreatment MUGA 2004 - nl LV function. GERD (gastroesophageal reflux disease) 2 Palpitations 08/12/2011 History of left knee surgery 08/12/2011 Overview (08/12/2011): Left Vaginal prolapse Resolved Problems Problem Noted Date Diagnosed Date Resolved Date Thoracic aortic ectasia 09/08/2020 04/0 10/2020 SOB (shortness of breath) 09/08/2020 Irritant hand dermatitis 01/03/201710/2020 Allergic rhinoconjunctivitis of both eyes 08/22/2015 09/19/2020 Allergic rhinoconjunctivitis 11/21/2014 09/19/2020 Environmental allergies 01/04/201409/15 Conjunctivitis, allergic 01/04/201404/2015 Chronic allergic rhinitis 01/04/2014 Nevus 08/25/2012 09/19/2020 CIS - Left breast cancer 01/25/2005 Overview (08/22/2010): 01/25/05 Ultrasound-guided bx: ---Pathologic Diagnosis--- Needle biopsies: Left breast. Diagnosis: Invasive carcinoma Immunizations Name Administration Dates Next Due Influenza (FluMist) Quadriva lent, Intranasal LIVE 05/21/2012,03/14/2011,03/17/2009 Influenza (Novel [id number]) Injectable 06/06/2009 Influenza Quadrivalent with Preservative 015,03/18/2014 Influenza Quadrivalent, Preservative Free 2019,03/30/2019,07/06/2013 Td Adult, Absorbed, Preservative Free 06/16/2012 ,06/24/2000 Tdap 06/16/2012 Family History Medical History Relation Comments Allergic Rhinitis Father Breast Cancer Maternal Grandmother Breast Cancer Mother Breast Cancer Other Asthma Neg Hx Relation Status Comments Father Maternal Grandmother Mother Other Alive Social History Tobacco Use Types Packs/Day Years Used Date Smoking Tobacco: Never Smokeless Tobacco: Never Comments:only exposure was a s a child Alcohol Use Standard Drinks/Week Comments Yes 1 (1 standard drink = 0.6 oz pur e alcohol) Occasionally Sex and Gender Information Value Date Recorded Sex Assigned at Not on file Gender Identity Not on file Sexual Orientation Not on file Last Filed Vital Signs Vital Sign Reading Time Taken Comments Blood Pressure 137/80 03/29/2023 1:34 PM EDT Pulse 79 03/29/2023 1:34 PM EDT Temperature 35.6 ??C (96.1 ??F) 03/29/2023 1:34 PM ED T Respiratory Rate 18 03/29/2023 1:34 PM EDT Oxygen Saturation 99% 03/29/2023 1:34 PM EDT Inhaled Oxygen Concentration - - Weight 84.3 kg (185 lb 12.8 oz) 03/29/2023 1:34 PM EDT Height 162.6 cm (5' 4.02) 03/29/2023 1:34 PM ED T Body Mass Index 31.88 03/29/2023 1:34 PM EDT Plan of Treatment Upcoming Encounters Date Type Department Care Team (Late st Contact Info) Description 03/27/2024 11:00 AM EDT Office Visit Hematology/Oncology at [address] [id number] El Bernardo MD [facility] [address] [address] [place] [address] 04/21/2024 8:00 AM EST Appointment Mammography/[place] [address] HEMATOLOGY AND ONCOLOGY [place], [place] [id number] Health Maintenance Due Date Last Done Comments CT Colonography 1960 Colonoscopy 1960 Colorectal Cancer Screening 1960 FIT DNA 1960 FIT 1960 Sigmoidoscopy (10 year) with FIT yearly 1960 Sigmoidoscopy 1960 Pneumococcal Vaccine: At-Ris k 5-64yrs (1 of 2 - PCV) 12/31/1967 DM Hemoglobin A1c 12/31/1971 DM Opthalmology Exam 12/31/1971 DM Urine Microalbumin yearly 12/31/1971 HIV screen 12/31/1979 Hepatitis C Screening 12/31/1979 Lipid Screening 12/31/1979 Breast Cancer Share Decision Needed 2001 Zoster vaccine (1 of 2) 12/31/2011 DM Creatinine yearly 08/14/2012 08/15/2011 Advance Directive 2016 Tetanus vaccine 06/16/2022 06/16/2012, 05/19, 06/24/2000 Covid-19 Vaccine ( - 2022-2 4 season) 2024 Influenza (Flu) vaccine (1 o f 1 - Influenza standard series) 02/16/2024 03/03/2020, 03/30/2019, 03/15/2015, Additional history exists Breast Cancer screening 02/22/2025 02/23/20 23, 01/18/2022, 07/14/2020, Additional history exists HPV test 03/29/2026 03/29/2021, 12/14/2011 PAP Smear 03/29/2026 03/29/2021, 04/17, 12/14/2011 Tdap adult Completed 06/16/2012 Procedures Procedure Name Priority Date/Time Associated Diagnosis Comments PUBLICITY AGENT SCAN 01/09/2024 12:00 AM EDT MAMMO SCREENING CAD AND ELIE BILATERAL Routine 02/22/2023 2:06 PM EDT History of left breast cancer BRCA1 positive Encounter for screening mammogram for malignant neoplasm of breast HPV Routine 03/29/2021 2:30 PM EDT [facility] CYTOLOGY FINAL REPORT Routine 03/29/2021 2:30 PM EDT BASIC METABOLIC PANEL Routine 08/15/2011 7:30 AM EST CHF (congestive heart failure) from Last 3 Months or Most Recently Relevant to Health Maintenance Results * Scan Doc: Shopper'S Aide (01/09/2024 12:00 AM EDT) Anatomical Region Laterality Modality Other Narrative 01/09/2024 12:00 AM EDT Ordered by an unspecified provider. Scanning Provider MEDIA MGR SCAN EXT O RDR/RSLT * Mammo Screening Cad and Elie Bilateral (02/22/2023 2:06 PM EDT) Anatomical Region Laterality Modality Breast Bilateral Mammography Impressions 02/22/2023 2:31 PM EDT No mammographic evidence of malignancy, Routine annual screening mammography is recommended. FINAL ASSESSMENT: BI-RADS Category 2: Benign Findings * ??Regular screening mammograms starting at age 40 reduces the risk of from breast cancer. * ??Yearly screening provides the most benefit. Women should discuss with their provider their preferred breast cancer screening schedule. * ??Women should report any breast changes to a health care provider right away. * ??Some women, because of their family history, a genetic tendency, or other factors, should be screened with annual breast MRI as well as with mammograms. Thank you for letting us participate in the care of this patient. ??If you are a health care provider and have any questions regarding this report, please contact the number below. ??For patients who have questions please contact the health career professional that requested your imaging first. ? Narrative 02/22/2023 2:31 PM EDT EXAMINATION: MAMMO SCREENING CAD AND ELIE BILATERAL REASON FOR EXAM: Screening TECHNIQUE: CC and MLO views were obtained of BOTH breasts. 2D and 3D tomosynthesis images were obtained. Computer aided detection was used. COMPARISON: Comparison was made to the prior relevant examinations. BREAST DENSITY: There are scattered areas of fibroglandular density. FINDINGS: Stable postlumpectomy changes left breast. Biopsy clips are present in both breasts. Bilateral vascular calcifications. There are no suspicious microcalcifications, masses, or areas of distortion. Stable appearance. Linda Tamayo APRN IMG MAMMO ORDERA BLES * HPV (03/29/2021 2:30 PM EDT) HPV16 NEGATIVE NEGATIVE [facility] HPV 18 NEGATIVE NEGATIVE [facility] HPV Other HR NEGATIVE NEGATIVE [facility] HPV Interpretation See Comment [facility] Comment: NEGATIVE for high-risk HPV *. * Testing negative for high risk HPV means that the specimen is negative for the following 14 types tested: ??types 16, 18, 31, 33, 35, 39, 45, 51, 52, 56, 58, 59, 66, and 68. ??The test is not intended to detect low risk HPV types. Isaac Cady HPV test Specimen: HPV Testing - Cytology Liquid Based Prep Cervical 03/29/2021 2:30 PM EDT 03/29/2021 6:35 PM EDT Narrative Resulting Agency Comment Spec In Lab Sydney Bueno APRN PATHOLOGY/CYTOLOGY O RDERAALFONSO [facility] [place] [place] [address] * Integrative Medicine Physician Cytology Final Report (03/29/2021 2:30 PM EDT) Integrative Medicine Physician Cytology Final Report [id number] ? Location: 5L The signing pathologist has (i) examined the relevant preparation(s) for the specimen(s) and (ii) rendered or confirmed the diagnosis(es). . ? Integrative Medicine Physician Final DIAGNOSIS Normal Negative for intraepithelial lesion or malignancy (NILM). For consensus guidelines for the management of cervical cancer screening test results, please see: ?? [email or web address].[email or web address] rg . Electronically signed by: ?Patricia SEGAL(ASCP)[place] Verified: ??04/11/2021 10:31 ??Certified Scrum Master Performed at: ??-[facility] Dept. of Pathology, [place], [place] HPV RESULTS HPV16 (Result) ?Negative HPV18 (Result) ?Negative HPVOHR (Result) ? Negative HPV (Interpretation) ?See Below HPV (Interpretation) Text: NEGATIVE for high-risk HPV *. *Testing negative for high risk HPV means that the specimen is negative for the following 14 types tested: types 16, 18, 31, 33, 35, 39, 45, 51, 52, 56, 58, 59, 66, and 68. The test is not intended to detect low risk HPV types. [employer] cady HPV test Specimen: HPV Testing - Cytology Liquid Based Prep The Isaac cady ? HPV test was validated, performed and results reported through the [facility] ([facility]) at [facility]. ? - El Garg, PhD, [facility], Director-[facility] STATEMENT OF ADEQUACY Specimen submitted is satisfactory. Endocervical component present. CLINICAL INFORMATION HPV Option: ?Concurrent HPV and Pap CT/NG Option: ?No Preparation: ? Liquid based Pap Specimen Source: ? Cervical/Endocervi kelly LMP: ? postmenopausal Hysterectomy: ?No : ?No : ?No I.U.D.: ?No Pelvic Radiation: ?No Hist Abnl Pap/Biopsy: ?Yes, history of previous abnormal Pap Prior DOPE HEATER Therapy: ? Cone Biopsy Hist of HPV Vaccine: ? No ICD Diagnosis: ? Z12.4 Encounter for screening for malignant neoplasm of cervix Clinical Data, Significant Therapy and Clinical Impression ?? : ?cone in 1992 . CLINICAL INFORMATION This Pap Test has been evaluated with the assistance of the ThinPrep Pap Test Imaging System. Note: The Pap test is a screening test for cervical cancer with an inherent false-negative rate dependent upon several variables. For further information please contact the [facility] Laboratory. Reference: Nishi CALDERON. Moveman of Pap Smear Results. In: Julio Cesar BS, Misael HH, ed. The Pap Smear. [place]: Jerad, 2002: 71-77. [facility] 03/29/2021 2:30 PM EDT Sydney Bueno APRN PATHOLOGY/CYTOLOGY O RDERABLES [facility] [place] [place] [address] * Basic Metabolic Panel (non-fasting) (08/15/2011 7:30 AM EST) Glucose 136 60 - 199 mg/dL [facility] Comment:Diabetes: >=200 mg/d L plus symptoms Blood Urea Nitrogen 12 8 - 18 mg/dL [facility] MILLENNIUM Creatinine 0.73 0.70 - 1.20 mg/dL [facility] MILLENNI[facility] Sodium 141 135 - 145 mmol/L [facility] MILLENNI[facility] Potassium 4.5 3.5 - 5.0 mmol/L [facility] Comment: Please note: ??Patients with WBC >100,000 may have falsely elevated Potassium levels. ??For accurate Potassium quantification in these patients send serum separator tube (gold top) for subsequent determinations. ??Contact the Clinical Chemistry Laboratory if there are any questions. Chloride 104 98 - 107 mmol/L [facility] MILLENNI[facility] Carbon Dioxide 28 22 - 31 mmol/L [facility] MILLENNI[facility] Anion Gap 9 5 - 15 mmol/L [facility] MILLENNI[facility] Calcium 9.1 8.5 - 10.5 mg/dL [facility]ERNER MILLENNIUM Est Glomerular Filtration Rate >60 >=60 [facility] MILLENNI[facility] Comment: The National Kidney Disease Education Program (NKDEP) has recommended all laboratories report estimated GFR (eGFR) along with plasma creatinine measurements to assist you with recognition of early kidney disease. Caveats: ??Plasma creatinine should be at steady-state (unchanged within the past week). For patients multiply eGFR by 1.2. The MDRD equation has not been validated for pediatric patients and is only valid for patients with age >= 18 years. At present, NKDEP does NOT recommend using the MDRD equation for drug dosing purposes and pharmacists should continue to use their current dosing methods. In addition, numerical eGFR values greater than 60 ml/min/1.73 square meters should be treated as > 60, and not an exact number due to greater inaccuracies at these higher values. Per NKDEP, they classify normal renal function as any GFR >60ml/min/1.73 square meters; chronic kidney disease when GFR <60, and renal failure when GFR <15. ??This calculation may not be valid for patients with atypical muscle mass (very lean or obese), acute renal failure, and in patients with diabetic kidney disease. References: http://nkdep.nih.gov/resources/NKDEP_Suggestn4Labs_0606_508.pdf http://www.kidney.org/professionals/kls/pdf/faq_gfr.pdf Blood specimen (specimen) 08/15/2011 7:30 AM EST 08/15/2011 7:50 AM EST Narrative Resulting Agency Comment Spec In Lab Jeevan Orourke MD CHEMISTRY ORDERABL ES [facility] from Last 3 Months or Most Recently Relevant to Health Maintenance Advance Directives * Full Code (Latest Code Status on File) Date Activated Date Inactivated Comments 04/21/2013 5:36 PM 04/21/2013 11:17 PM * Full Code Date Activated Date Inactivated Comments 04/21/2013 12:52 PM 04/21/2013 5:36 PM Care Teams Marketing Effectiveness Manager Relationship Specialty Start Date End Date Dena Alfonso APRN [address] [place] [address] PCP - General Geriatric Medicine 10/12/16
--- OUTSIDE RECORDS SUMMARY | 2024-02-27 12:41 | XMS_ITS | Encounter Summary ---
Author Organization [facility] Address [address] [place] [address] Care Team Providers Care Compliance Mgr Name Role Phone Dena Alfonso LIZABETH Primary Care Provider [phone] Encounter Details Date Type Department Care Team (Late st Contact Info) Description 12/10/2022 Lab Requisition [facility] Pathology & Laboratory Medicine - [address] [id number] Outr Resulting Lab, Provider Social History Tobacco [...] Procedure Name Priority Date/Time Associated Diagnosis Comments CHLAMYDIA/N. GONORRHOEAE AMPLIFIED NUCLEIC ACID Routine 12/10/2022 9:45 EDT documented in this encounter Results * CHLAMYDIA/N. GONORRHOEAE AMPLIFIED RNA (12/10/2022 9:45 EDT) Neisseria gonorrhoeae Result Negative Negative 12/12/2022 13:11 EDT [facility] Chlamydia trachomatis Result Negative Negative 12/12/2022 13:11 EDT [facility] Swab ENTIRE VAGINA / Unknown 12/10/2022 9:45 EDT 12/11/2022 23:10 EDT Provider Outr Resulting Lab MICROBIOLOGY - GENERAL ORDERABLES Performing Organization Address [facility]/State/ZIP Co de Phone Number [facility] [address] [place] [address] documented in this encounter Visit Diagnoses Not on filedocumented in this encounter Care Teams Compliance Mgr Relationship Specialty Start Date End Date Dena Alfonso APRN [address] [place] [address] PCP - General Family Medicine - Hospital Medicine 10/15/22 documented as of this encounter
--- OUTSIDE RECORDS SUMMARY | 2024-02-27 12:41 | XMS_ITS | Encounter Summary ---
Author Organization [facility] Address [address] [place] [address] Care Team Providers Care Medical Staff Assistant Name Role Phone Unavailable Primary Care Provider Unavailabl e Encounter Details Date Type Department Care Team (Late st Contact Info) Description 04/04/2009 Orders Only [facility] Laboratory Services - [facility] [address] [place], [place] [id number] Kate Knight MD [address] [place] [address] [place] [address] Social History Tobacco Use Types Packs/Day Years Used Date Smoking Tobacco: Never Assessed Sex and Gender Information Value Date Recorded Sex Assigned at Not on file Gender Identity Not on file Sexual Orientation Not on file documented as of this encounter Plan of Treatment Not on file documented as of this encounter Procedures Procedure Name Priority Date/Time Associated Diagnosis Comments CYTOPATHOLOGY Routine 04/04/2009 0:00 EDT documented in this encounter Results * CYTOPATHOLOGY (04/04/2009 0:00 EDT) Pathology Report: CYTOPATHOLOGY REPORT ? Reports generated via electronic interface contain original data; ? however they are lacking the format of the original report. ? Caution should be taken when reading/interpreti ng unformatted reports. ? Name: ? TY TAYLOR ? Accession #: ? [id number] ? : ? 1960 (Age: 48) ??F ?Collect Date: ? 04/04/2009 ? Location: ? [facility] ? Receive Date: ? 04/04/2009 ? Provider: ?KATE KNIGHT MD ? Copy to: ? Specimen/Source: ?Pap Test, Cervix/Endocervix, ThinPrep Imaging System ? with manual evaluation ? Last Menstrual Period: ? 2005 ? Treatment History: ? Cone biopsy: To Cervix 1993 ? Other: ? Additional clinical information: LMP 2005 due to Chemo h/o Breast cancer ? SPECIMEN ADEQUACY ? Satisfactory for Evaluation ? - transformation zone component present ? GENERAL CATEGORIZATION ? Negative for Intraepithelial Lesion or Malignancy ? Document reviewed and electronically signed by: ? Lynan Davon, CT(ASCP) ? Report Date: ??04/08/2009 12:17 ? End of Report ? [facility] 04/04/2009 04/04/2009 Kate Knight MD PATHOLOGY ORDERABLES [facility] [address] [place] [address] documented in this encounter Visit Diagnoses Not on filedocumented in this encounter
--- OUTSIDE RECORDS SUMMARY | 2024-02-27 12:41 | XMS_ITS | Encounter Summary ---
Author Organization [facility] Address [address] [place] [address] Care Team Providers Care Lay Health Advocate Name Role Phone Unavailable Primary Care Provider Unavailabl e Encounter Details Date Type Department Care Team (Late st Contact Info) Description 07/08/1999 Results Only [facility] [address] [place] [address] Raf Bowen MD Social History Tobacco Use Types Packs/Day Years Used Date Smoking Tobacco: Never Assessed Sex and Gender Information Value Date Recorded Sex Assigned at Not on file Gender Identity Not on file Sexual Orientation Not on file documented as of this encounter Plan of Treatment Not on file documented as of this encounter Procedures Procedure Name Priority Date/Time Associated Diagnosis Comments SURGICAL PATHOLOGY Routine 07/08/1999 9:36 EST documented in this encounter Results * SURGICAL PATHOLOGY (07/08/1999 9:36 EST) Pathology Report: SURGICAL PATHOLOGY REPORT Reports generated via electronic interface contain original data; however they are lacking the format of the original report. Caution should be taken when reading/interpreti ng unformatted reports. Name: ? TY TAYLOR ? Accession #: ? [id number] ? : ? 1960 (Age: 38) ??F ? Collect Date: ? 07/08/1999 ? Location: ?Receive Date: ? 07/08/1999 ? Provider: RAF BOWEN MD Copy to: RAF DOLL DO VENESSA GOMEZ MD ? Final Pathologic Diagnosis: MICROSCOPIC DIAGNOSIS: ? Breast, left, biopsy: ? - Vessel with organizing thrombus. ? - Surrounding soft tissue with edema and fibrosis. ? Document reviewed and electronically signed by: Conversion for AMANDA ESPINAL Report ??Date: 07/11/1999 00:00 By the signature above, the attending physician certifies that he/she has personally conducted a gross and/or microscopic examination of the described specimens and rendered or confirmed the above diagnosis. Specimen(s) Received: TISSUE SUBMITTED: ? L breast bx-R/O malig ? CLINICAL DATA: ? Probably thrombosed ectactic vessel; R/O malig; left breast mass ? ==>bx illegible Gross Description: GROSS: ? Received in formalin labelled Chiqui and Left breast are two ? irregularly shaped portions of yellow-adipose tissue which ? measure 2.2 x 1.2 x 0.5 cm and 1.5 x 0.8 x 0.2 cm. ??The specimens ? are submitted entirely as (A) and (B). ??(Dr. Vines)/[facility] End of Report [facility] 07/08/1999 9:36 EST 07/08/1999 9:37 EST Raf Bowen MD PATHOLOGY ORDERABLES [facility] [address] [place] [address] documented in this encounter Visit Diagnoses Not on filedocumented in this encounter
--- OUTSIDE RECORDS SUMMARY | 2024-02-27 12:41 | XMS_ITS | Referral Summary ---
Author Organization [facility] Address [address] [place] [address] Care Team Providers Care Kitchen Helper Name Role Phone Dena Alfonso LIZABETH Primary Care Provider [phone] Encounters Date Type Department Care Team Description 01/09/2024 Lab Requisition [facility] Pathology & Laboratory Medicine - [address] [address] Alondra Rushing MD Encounter for other general examination from Last 3 Months Social History Tobacco Use Types Packs/Day Years Used Date Smoking Tobacco: Never Assessed Sex and Gender Information Value Date Recorded Sex Assigned at Not on file Gender Identity Not on file Sexual Orientation Not on file Plan of Treatment Not on file Procedures Procedure Name Priority Date/Time Associated Diagnosis Comments PAP TEST Today 01/08/2024 14:01 EDT Encounter for other general examination from Last 3 Months Results * PAP TEST (01/08/2024 14:01 EDT) Specimens A. Cervix and/or Endocervix , ThinPrep Imaging System with Manual Evaluation 01/14/2024 10:56 EDT [facility] Specimen Adequacy Unsatisfactory for evaluation-Insuf ficient number of squamous epithelial cells. Specimen processed and examined but preparation compromised by lubricant or other vaginal contaminant. 01/14/2024 10:56 EDT [facility] General Categorization Unsatisfactory 01/14/2024 10:56 T [facility] Educational Comments Unsatisfactory - Specimen processed and examined, but unsatisfactory for evaluation of epithelial abnormality. Recommend repeat age-based screening after 2-4 months per ASCCP Guidelines which may be found at www.asccp.org. HPV testing will not be performed due to the potential for false negative results. 01/14/2024 10:56 EDT [facility] Attestation . 01/14/2024 10:56 EDT [facility] at 1056 Clinical History See below 01/14/20 10:56 EDT [facility] Performing Lab [facility] 01/14/2024 10:56 EDT [facility] Scanned Images 01/14/2024 10:56 EDT [facility] Pap Test CERVIX UTERI STRUCTURE / Unknown 01/08/2024 14:01 EDT 01/09/2024 11:12 EDT Alondra Rushing MD PATHOLOGY ORDERABLES [facility] [address] [place] [address] from Last 3 Months Care Teams Kitchen Helper Relationship Specialty Start Date End Date Dena Alfosno APRN [address] [place] [address] PCP - General Family Medicine - [facility] 10/15/22
--- OUTSIDE RECORDS SUMMARY | 2024-02-27 12:41 | XMS_ITS | Encounter Summary ---
Author Organization [facility] Address [address] [place] [address] Care Team Providers Care Bridge Mechanic Name Role Phone Dena Alfonso LIZABETH Primary Care Provider [phone] Encounter Details Date Type Department Care Team (Late st Contact Info) Description 01/09/2024 Lab Requisition [facility] Pathology & Laboratory Medicine - [facility] [address] [place] [address] Alondra Rushing MD [address] [place] [address] [phone] Encounter for other general examination Social History Tobacco Use Types Packs/Day Years [...] 14:01 EDT Encounter for other general examination documented in this encounter Results * PAP TEST (01/08/2024 14:01 EDT) Specimens A. Cervix and/or Endocervix , ThinPrep Imaging System with Manual Evaluation 01/14/2024 10:56 EDT [facility] Specimen Adequacy Unsatisfactory for evaluation-Insuf ficient number of squamous epithelial cells. Specimen processed and examined but preparation compromised by lubricant or other vaginal contaminant. 01/14/2024 10:56 EDT [facility] General Categorization Unsatisfactory 01/14/2024 10:56 T [facility] Educational Comments Unsatisfactory - Specimen processed and examined, but unsatisfactory for evaluation of epithelial abnormality. Recommend repeat age-based screening after 2-4 months per ASCCP Guidelines which may be found at www.asccp.org. HPV testing will not be performed due to the potential for false negative results. 01/14/2024 10:56 EDT [facility] Attestation . 01/14/2024 10:56 T [facility] at 1056 Clinical History See below 01/14/20 10:56 T [facility] Performing Lab [facility] 01/14/2024 10:56 T [facility] Scanned Images 01/14/2024 10:56 T [facility] Pap Test CERVIX UTERI STRUCTURE / Unknown 01/08/2024 14:01 EDT 01/09/2024 11:12 EDT Alondra Rushing MD PATHOLOGY ORDERABLES [facility] [address] [place] [address] documented in this encounter Visit Diagnoses Diagnosis Encounter for other general examination documented in this encounter Care Teams Bridge Mechanic Relationship Specialty Start Date End Date Dena Alfonso APRN [address] [place] [address] PCP - General Family Medicine - Hospital Medicine 10/15/22 documented as of this encounter
--- OUTSIDE RECORDS SUMMARY | 2024-02-27 12:41 | XMS_ITS | Encounter Summary ---
Author Organization [facility] Address [address] [place] [address] Care Team Providers Care Timber Packer Name Role Phone Md VIET Amaya Primary Care Provider Unavaila ble Encounter Details Date Type Department Care Team (Late st Contact Info) Description 11/22/[address] [facility] [phone] Pita Melendez, [facility] [address] [place] [address] Social History Tobacco Use Types Packs/Day Years Used Date Smoking Tobacco: Never Assessed Sex and Gender Information Value Date Recorded Sex Assigned at Not on file Gender Identity Not on file Sexual Orientation Not on file documented as of this encounter Plan of Treatment Not on file documented as of this encounter Procedures Procedure Name Priority Date/Time Associated Diagnosis Comments PAP TEST- RESULT ONLY Routine 11/22/2016 0:00 EDT documented in this encounter Results * PAP TEST- RESULT ONLY (11/22/2016 0:00 EDT) Pathology Report: CYTOPATHOLOGY REPORT Reports generated via electronic interface contain original data; however they are lacking the format of the original report. Caution should be taken when reading/interpreti ng unformatted reports. Name: ? TY HERNÁNDEZ ? Accession #: ? [id number] ? : ? 1960 (Age: 55) ??F ?Collect Date: ? 11/22/2016 ? Location: ? [facility] ? Receive Date: ? 11/23/2016 ? Provider: PITA MELENDEZ APPRENTICESHIP TRAINING REPRESENTATIVE Copy to: SHAMIKA MARC APPRENTICESHIP TRAINING REPRESENTATIVE ? Final Report SPECIMEN ADEQUACY ? Satisfactory for Evaluation - transformation zone component absent GENERAL CATEGORIZATION ? Negative for Intraepithelial Lesion or Malignancy ?? Last Menstrual Period: 2004 Hormonal/Contracep tive status: Yes: vagifem Specimen/Source: ??Pap Test, Cervix, ThinPrep Imaging System with manual evaluation Document reviewed and electronically signed by: ? Gris Gould, [place](ASCP)(IAC) ? Report ??Date: 12/04/2016 15:28 HPV with Pap Test ? Date Ordered: ? 12/04/2016 ? Status: ?? Signed Out ?Date Complete: ? 12/05/2016 ? By: ??System Interface ? Date Reported: ? 12/05/2016 ? Interpretation RESULT: Negative for HPV. No E6 or E7 mRNA is detected from HPV types 16,18,31,33,35, 39,45,51,52,56,58, 59,66, and 68 by access consultant mediated amplification. Comments Document reviewed and electronically signed by: ? System Interface ? Report date: 12/05/2016 By the signature above, the attending physician certifies that he/she has personally conducted a gross and/or microscopic examination of the described specimens and rendered or confirmed the above diagnosis. End of Report [facility] 11/22/2016 11/23/2016 Pita Melendez APPRENTICESHIP TRAINING REPRESENTATIVE PATHOLOGY ORDERABLES [facility] [address] [place] [address] documented in this encounter Visit Diagnoses Not on filedocumented in this encounter Care Teams Timber Packer Relationship Specialty Start Date End Date Md Amaya MD PCP - General 04/29/15 10/14/22 documented as of this encounter
--- OUTSIDE RECORDS SUMMARY | 2024-02-27 12:41 | XMS_ITS | Encounter Summary ---
Author Organization [facility] Address [address] [place] [address] Care Team Providers Care Power Engineer Name Role Phone Dena Alfonso LIZABETH Primary Care Provider [phone] Encounter Details Date Type Department Care Team (Late st Contact Info) Description 10/29/2022 Lab Requisition [facility] Pathology & Laboratory Medicine - [facility] [address] [place] [address] Beto Mathias MD [address] [place] [address], [address] [place], [place] [address] Benign lipomatous neoplasm of skin and subcutaneous tissue of trunk Social History Tobacco Use Types Packs/Day Years Used Date Smoking Tobacco: Never Assessed Sex and Gender Information Value Date Recorded Sex Assigned at Not on file Gender Identity Not on file Sexual Orientation Not on file documented as of this encounter Plan of Treatment Not on file documented as of this encounter Procedures Procedure Name Priority Date/Time Associated Diagnosis Comments SURGICAL PATHOLOGY Today 10/26/2022 10 :55 EDT Benign lipomatous neoplasm of skin and subcutaneous tissue of trunk documented in this encounter Results * SURGICAL PATHOLOGY (10/26/2022 10:55 EDT) Note to Patient The following pathology results have been interpreted by your pathologist and may be available to you before your health provider has had the opportunity to review them. Please allow time for your provider to receive these results and explore management options, if applicable. 10/30/2022 15:00 EDT [facility] Final Diagnosis A. SOFT TISSUE, LEFT COSTAL MARGIN, EXCISION: - Mature fibroadipose tissue, consistent with lipoma. 10/30/2022 15:00 [facility] Attestation By the signature below, the attending physician certifies that they have 1) personally conducted a gross and/or microscopic examination of the described specimen(s), and/or personally interpreted the results of laboratory testing of the described specimen(s), and 2) personally rendered or confirmed the above diagnosis. 10/30/2022 15:00 [facility] at 1500 Clinical History Lipoma left costal margin 10/30/2022 15:00 [facility] Gross Description A. Received in formalin labelled with proper patient identification (initials M, C) and lipoma left costal margin is an unoriented irregular fragment of disrupted yellow lobulated adipose tissue (5.5 g, 3.3 x 2.1 x 1.3 cm). The specimen is sectioned revealing a yellow lobulated cut surface with scattered bands of pink-santizo fibrous connective tissue. No firm areas or hemorrhage are grossly identified. Child Development Specialist sections are submitted in A1 and A2. YADIRA GOLDMAN(ASCP) 10/29/2022 13:51 10/30/2022 15:00 T [facility] Performing Lab [facility] 10/30/2022 15:00 T [facility] Scanned Images 10/30/2022 15:00 [facility] Tissue SOFT TISSUE / Unknown 10/26/2022 10:55 EDT 10/29/2022 8:26 EDT Beto Mathias MD PATHOLOGY ORDERABLES [facility] [address] [place] [address] documented in this encounter Visit Diagnoses Diagnosis Benign lipomatous neoplasm of skin and subcutaneous tissue of trunk Lipoma of other skin and subcutaneous tissue documented in this encounter Care Teams Power Engineer Relationship Specialty Start Date End Date Dena Alfonso APRN [address] [place] [address] PCP - General Family Medicine - Hospital Medicine 10/15/22 documented as of this encounter
--- OUTSIDE RECORDS SUMMARY | 2024-02-27 12:41 | XMS_ITS | Encounter Summary ---
Author Organization [facility] Address [address] [place] [address] Care Team Providers Care Slide Fastener Repairer Name Role Phone Md VIET Amaya Primary Care Provider Dena Short APRN Primary Care Provider [phone] Encounter Details Date Type Department Care Team (Late st Contact Info) Description 03/03/2021 Lab Requisition [facility] Pathology & Laboratory Medicine - [address] [address] Outr Resulting Lab, Provider Social History Tobacco [...] Comments ZZCOVID-19 TEST [facility] PCR Today 03/03/2021 11:10 EDT COVID-19 TESTING Routine 03/03/2021 11:1 0 EDT documented in this encounter Results * COVID-19 TEST [facility] PCR (03/03/2021 11:10 EDT) Swab ENTIRE NASOPHARYNX / Unknown 03/03/2021 11:10 EDT 03/03/2021 21:33 EDT Provider Outr Resulting Lab MICROBIOLOGY - GENERAL ORDERABLES [facility] [address] [place] [address] * COVID-19 TESTING (03/03/2021 11:10 EDT) COVID-19 rt-PCR Result Negative Negative 03/04/2021 16:13 EDT [facility] Comment: This test has not been FDA cleared or approved. This test has been authorized by FDA under an EUA for use by authorized laboratories. This test has been authorized only for detection of nucleic acid from 2019-nCoV, not for any other viruses or pathogens. This test is only authorized for the duration of the declaration that circumstances exist justifying the authorization of emergency use of in vitro diagnostic tests for detection and/or diagnosis of 2019-nCoV under section 564(b)(1) of Act, 21 U.S.C ?? 360bbb-3(b) (1), unless the authorization is terminated or revoked sooner. Negative results do not preclude 2019-nCoV infection and should not be used as the sole basis for treatment or other patient management decisions. Negative results must be combined with clinical observations, patient history, and epidemiological information. Performed on the MergeOpticsher Fusion instrument Performing Lab [place] [facility] 03/04/2021 16:13 EDT [facility] Swab 03/03/2021 11:1 0 EDT 03/03/2021 21:33 EDT Provider Outr Resulting Lab MICROBIOLOGY - GENERAL ORDERABLES [facility] [address] [place] [address] documented in this encounter Visit Diagnoses Not on filedocumented in this encounter Care Teams Slide Fastener Repairer Relationship Specialty Start Date End Date Md Amaya MD PCP - General 04/29/15 10/14/22 Dena Alfonso APRN [address] [place] [address] PCP - General Family Medicine - Hospital Medicine 10/15/22 documented as of this encounter
--- OUTSIDE RECORDS SUMMARY | 2024-02-27 12:42 | XMS_ITS | Encounter Summary ---
Author Organization [facility] Address [facility] [place] [address] Care Team Providers Care Utility Worker Forge Name Role Phone Dena Alfonso LIZABETH Primary Care Provider [phone] Reason for Referral * Diagnostic Test (Routine) - Closed Specialty Diagnoses / Procedures Referred By Mariah tate Referred To Contact Radiology Diagnoses Breast cancer, stage 2, left BRCA1 gene mutation positive Procedures MRI Breast wwo Contrast Bilat El Bernardo MD [facility] [place] [address] [place] [address] Referral ID Status Reason Start Date Expiration Date V isits Requested Visits Authorized [id number] Closed Specialty Service Requested 07/22/2020 01/19/2022 1 1 Encounter Details Date Type Department Care Team (Late st Contact Info) Description 07/22/2020 1:30 PM EST TH Visit (TeleHealth) Hematology/Oncology at [address] [phone] El Bernardo MD [facility] [place] [address] Felicia Wagoner APRN [address] [place] [address] DR HEMATOLOGY ONCOLOGY [place], [place] [id number] Breast cancer, stage 2, left; BRCA1 gene mutation positive Social History Tobacco Use Types Packs/Day Years Used Date Smoking Tobacco: Never Smokeless Tobacco: Never Comments:only exposure was a s a child Alcohol Use Standard Drinks/Week Comments No 0 (1 standard drink = 0.6 oz pur e alcohol) Occasionally Sex and Gender Information Value Date Recorded Sex Assigned at Not on file Gender Identity Not on file Sexual Orientation Not on file documented as of this encounter Progress Notes * El Bernardo MD - 07/22/2020 1:30 PM EST Subjective: Patient ID: Rebeca Hernández is a 59 y.o. female. Problem List: 1. Cancer of left breast A. Pt-discovered mass in her L breast (UO quadrant) led to mammogram in 01/17 which was negative andnothing further was done apparently. Subsequent increase in size of the mass prompted re-eval. B. 01/22/05 BILATERAL DIAGNOSTIC MAMMOGRAM AND LEFT BREAST ULTRASOUND: The Left breast is SUSPICIOUS (ACR Category 4). Description: Ill defined, irregular mass. Size: 2.0 x ~1.4cm Location: 0200, 6cm from the nipple The Right breast is NEGATIVE (ACR Category 1). C. 01/25/05 Ultrasound-guided bx: ---Pathologic Diagnosis--- Needle biopsies: Left breast. Diagnosis: Invasive carcinoma D. 02/05/05 L Breast MRI: CONCLUSION: (ACR Category 6) of the known primary tumor at 0100, 7cm from the nipple. 10mm residual nodule or mass along the anterior and lateral inferior border of the biopsy site. KNOWN MALIGNANCY. (ACR Category 0) INCOMPLETE mammogram for lesion #2, 3cm clumped enhancement extending from the known tumor site towards the nipple. One focus of enhancement located 4cm posterior to the nipple, along the posterior nipple line may correspond to a group of calcs on the mammogram. Additional mammographic work-up of these calcifications recommended in order to determine if the calcs correspond to the MRI abnormality and if they are amenable to biopsy. (ACR Category 0) INCOMPLETE mammogram for lesion #3: a 5mm nodule, 2cm caudal to known primary tumor. This is likely benign but would recommend sonographic and possible mammographic evaluation of this area. E. 02/07/05 DIAGNOSTIC LEFT MAMMOGRAPHY AND LEFT BREAST ULTRASOUND: IMPRESSION: Lesion 2 Assessment: SUSPICIOUS (ACR Category 4) Finding: Clump contrast enhancement in the central Left breast that may be associated with indeterminate calcifications seen at mammography. Recommendation: MRI guided biopsy with specimen radiography. Lesion 3 Assessment: SUSPICIOUS (ACR Category 4) Findinmm complex cystic mass, 1.5cm inferolateral to the biopsy-proven malignancy. F. 02/08/05 MRI GUIDED BIOPSY OF THE LEFT BREAST (focal enhancement, 0900, 4cm from the nipple.): PATH: Diagnosis: Ductal hyperplasia with apocrine features, columnaralteration, apocine cysts and stromalsclerosis. Microcalcifications: Calcified secretions associated with ducts. G. 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 of nodes sampled: 4 No. of non-sentinel nodes: 0 No. of sentinel nodes: 4 No. positive for carcinoma: 0 No. with cytokeratin (CK) positive cells only: 0 No. negative for carcinoma: 4 Estrogen/Progestin receptors: ER immunoreactivity: Negative NC immunoreactivity: Negative HER2/yeyo expression by FISH: NEGATIVE FOR HER2/YEYO AMPLIFICATION H. s/p adjuvant chemotherapy (AC). Completed 6 cycles 07/25/05. I. Adjuvant radiation therapy, completed 12/07/05. J.Bilateral mammogram 07/14/20 -FINDINGS: Breast density: There are scattered areas of fibroglandular density. ?? There are no suspicious microcalcifications, masses, or areas of distortion. There are post treatment changes in the left breast. ?? CONCLUSION: No mammographic evidence of malignancy. ?? RECOMMENDATION: Routine screening. ?? BIRADS CATEGORY 2: BENIGN FINDINGS 08/17/15 - MRI guided bx right breast Path - Needle biopsies: ??Right breast. Diagnosis: ??Fibrocystic changes including adenosis, columnar cell change and hyperplasia, cysts, usual ductal hyperplasia, and focal stromal PASH. Microcalcifications: ??NA ?? 2. BRCA 1 mutation Family hx: One sister (age 53) and one brother (age ~50). No paternal aunts or cancer on father's side. Mother had breast cancer dx in her 50s. Maternal GM had breast cancer around age 60. One maternal aunt and two female cousins without cancer. There is no ovarian cancer in the family. She is positive for the same BRCA1 alteration found in her mother ([id number]). Prophylactic BSO 04/2013. Path - Right and left fallopian tubes and ovaries (bilateral salpingo-oophorectomy): No evidence of malignancy. 3. EQUIP TECH History: The patient is G4, P3 with one daughter who is ~16 years old. Her periods stopped for a while after chemo, then returned for a couple of cycles and stopped again. Past Surgical History: Cone biopsy of her cervix, which was benign and excision of a basal cell carcinoma. 4. H/o cardiomyopathy - follows with Dr. Orourke Echo 03/2013 - LVEF - 60% with no regional wall motion abnormalities. HPI Ms. Hernández is seen in f/u of cancer of the left breast as above. 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 It was hormone receptor and her-2/yeyo negative. She received adjuvant chemotherapy with AC and radiation and completed all therapy in 11/20. Of note, she has undergone genetic testing and is BRCA-1 positive. In 04/2013, she elected to underprophylactic BSO. The path did not show evidence of malignancy. This is a telephone encounter. She is feeling pretty well. She is concerned about a couple of otherareas of her health. Her DM has apparently not been optimally controlled. Her PCP has talked to herabout metformin. She wants to try a vitamin first that she has read is just as effective. She is going to talk with her PCP about it. She is also gong to try losing weight. She has some fatigue whichshe thinks may be related to the higher BS's. She also was found to have dilation of the aortic root on a recent echocardiogram and is going to have a repeat Echo in 4 months. No new or worsening areas of pain. She does BSE at times but it is difficult for her to evaluate. She is going to get the second vaccine shot next week. Review of Systems Constitutional: Positive for fatigue. Negative for activity change, appetite change, chills, fever and unexpected weight change. Eyes: Negative. Respiratory: Negative. Cardiovascular: Negative. Gastrointestinal: Negative. Genitourinary: Negative. Musculoskeletal: Positive for back pain. Skin: Negative. Neurological: Negative. Psychiatric/Behavioral: Negative. Objective: Physical Exam Abdominal: There is no hepatosplenomegaly. Genitourinary: Genitourinary Comments: Breast exam: Not done, telephone encounter Lymphadenopathy: She has no axillary adenopathy. Right: No supraclavicular adenopathy present. Left: No supraclavicular adenopathy present. Neurological: She is alert. Labs (03/30/20): WBC/ANC - 4.. Hgb/Hct -12.9/39.8, Plts - 289,000. BUN/Cr - 17/0.9. Lytes and LFTs unremarkable. Assessment and Plan: Ms. Hernández is 59 yo and seen in f/u of left breast cancer. Dx'd in 2004. 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 It was hormone receptor and her-2/yeyo negative. She received adjuvant chemotherapy with AC and radiation and completed all therapy in 11/20. She is positive for BRCA-1 mutation. She is s/p prophylactic oophorectomy. Clinically, she is doing well. The mammogram done 07/14/20 is negative. She had been having breast MRI as well but stopped after the MRI in 2015 led to a biopsy which was difficult for her. She is aware that she is at high risk for a second primary breast cancer and MRI is recommended as part of thescreening. She is willing to have that done. We will try to coordinate that to be done the same dayas her next Echo in 4 months (see below). I will f/u with her after the MRI to go over the result. We have discussed prophylactic mastectomy and she has not been interested in that. We talked again about testing for her daughter who is 26. She has spoken with her PCP and has been referred for testing. Her sister was tested and was negative. Her brother has elected not to be tested. She was seen by Dr. Govea in Cardiology on 07/21/20 in f/u of non ischemic cardiomyopathy with an Echo prior. Her LVEF was 66%. Concern was raised regarding a change in aortic root dimension and a repeat Echo is planned in three months. She was also having palpitation. She was started on metoprolol. I provided care to the patient today via telephone call. The total time associated with this visit was 20 minutes. documented in this encounter Plan of Treatment Upcoming Encounters Date Type Department Care Team (Late st Contact Info) Description 03/27/2024 11:00 AM EDT Office Visit Hematology/Oncology at [address] [phone] El Bernardo MD [facility] [place] [address] [place] [address] 04/21/2024 8:00 AM EST Appointment Mammography/[place] [address] [address] HEMATOLOGY AND ONCOLOGY [place], [place] [id number] documented as of this encounter Results * MRI Breast wwo Contrast Bilat (09/07/2020 5:30 PM EDT) Anatomical Region Laterality Modality Breast Bilateral Magnetic Resonan ce Impressions 09/08/2020 3:52 PM EDT [Stable post treatment changes in the left breast. No suspicious findings are identified within either breast. RECOMMENDATION:Continue high risk screening breast MRI LEFT BREAST BIRADS BI-RADS Category 2: Benign Findings RIGHT BREAST BIRADS BI-RADS Category 1: Negative Thank you for letting us participate in the care of this patient. For questions regarding this report, please contact the number below. ? Narrative 09/08/2020 3:52 PM EDT BILATERAL BREAST MRI CLINICAL INDICATION: Breast high risk screening TECHNIQUE: Multiplanar sequences were obtained pre- and post- Dotarem enhancement, to include SPGR weighted dynamic run-off and subtraction sequences obtained after the intravenous administration of 18 ccs of Dotarem. Computer algorithm analysis for lesion detection and kinetic contrast enhancement curve analysis was performed, using [employer] software. COMPARISON STUDIES: Compared and/or correlated with prior studies including mammograms (most recent 07/06/2020) and breast MRI (most recent dated 08/04/2015). FINDINGS: Background Enhancement Pattern (first post Dotarem image): Mild (25-50% breast) Amount of Fibroglandular Tissue: Scattered fibroglandular tissue LEFT Breast:There are stable posttreatment changes identified in the left breast. There are no suspicious masses or areas of abnormal morphology. Incidental note is made of mild increased background parenchymal enhancement in both breasts however no focal suspicious nonmass enhancement is identified. RIGHT Breast:No suspicious masses or areas of abnormal enhancement or morphology Lymph Node Basins/Other: There is no evidence of internal mammary or axillary adenopathy.. No significant abnormalities are seen in the chest wall or skin.. El Bernardo MD IMG MRI ORDERABLES documented in this encounter Visit Diagnoses Diagnosis Breast cancer, stage 2, left BRCA1 gene mutation positive Breast cancer, stage 2, left BRCA1 gene mutation positive documented in this encounter Care Teams Utility Worker Forge Relationship Specialty Start Date End Date Dena Alfonso APRN [address] [place] [address] PCP - General Geriatric Medicine 10/12/16 documented as of this encounter
--- OUTSIDE RECORDS SUMMARY | 2024-02-27 12:42 | XMS_ITS | Encounter Summary ---
Author Organization [facility] Address [facility] [place] [address] Care Team Providers Care Sheep Shearer Name Role Phone Dena Alfonso APRN Primary Care Provider Encounter Details Date Type Department Care Team (Late Contact Info) Description 07/26/2020 Orders [place] [address] Cj Castro Jr., MD [facility] [place] [address] Pain in right wrist; Right hand pain Social History Tobacco Use Types Packs/Day Years [...] Encounters Date Type Department Care Team (Late Contact Info) Description 03/27/2024 11:00 AM EDT Office Visit Hematology/Oncology at [address] [phone] El Bernardo MD [facility] [place] [address] Linda Tamayo APRN [address] [place] [address] DR [place] [address] 04/21/2024 8:00 AM EST Appointment Mammography/[place] [address] Linda Tamayo, LIZABETH [address] [place] [address] DR [place] [address] documented as of this encounter Results * XR Hand Min 3 views Right (Generic) (08/23/2020 9:26 AM EST) Anatomical Region Laterality Modality Hand Right Digital Radiogra phy Impressions 08/23/2020 9:59 AM EST 1. ??Multifocal osteoarthropathy of the wrists, thumb, and fingers, most pronounced at the first carpometacarpal joint. 2. ??Status post ORIF of healed distal radius fracture. Thank you for letting us participate in the care of this patient. For questions regarding this report, please contact the number below. ? Narrative 08/23/2020 9:59 AM EST EXAMINATION: XR HAND MIN 3 VIEWS RIGHT (GENERIC), XR WRIST 3 VIEWS RIGHT CLINICAL HISTORY: R hand pain (as entered by ordering provider in the order requisition) TECHNIQUE: PA, oblique, and lateral views the right hand. PA, oblique, and lateral views of the right wrist. COMPARISON: Right wrist radiographs 08/19/2019 FINDINGS: Wrist: Postoperative changes status post ORIF of healed distal radial fracture. No disruption of the hardware. Configuration of the hardware is similar when compared to August 2019. No focal soft tissue swelling. There is diffuse osseous mineralization. There is first carpometacarpal osteoarthropathy. No new fracture or malalignment. Hand: Diffuse osseous demineralization. Small marginal osteophytes at the thumb interphalangeal joint and the index finger DIP joint. Procedure Note Dena Parker MD - 08/23/2020 EXAMINATION: XR HAND MIN 3 VIEWS RIGHT (GENERIC), XR WRIST 3 VIEWS RIGHT CLINICAL HISTORY: R hand pain (as entered by ordering provider in theorder requisition) TECHNIQUE: PA, oblique, and lateral views the right hand. PA, oblique, and lateralviews of the right wrist. COMPARISON: Right wrist radiographs 08/19/2019 FINDINGS: Wrist: Postoperative changes status post ORIF of healed distal radialfracture. No disruption of the hardware. Configuration of the hardware is similarwhen compared to August 2019. No focal soft tissue swelling. There is diffuseosseous mineralization. There is first carpometacarpal osteoarthropathy. No newfracture or malalignment. Hand: Diffuse osseous demineralization. Small marginal osteophytes at thethumb interphalangeal joint and the index finger DIP joint. IMPRESSION 1. Multifocal osteoarthropathy of the wrists, thumb, and fingers, most pronounced at the first carpometacarpal joint. 2. Status post ORIF of healed distal radius fracture. Thank you for letting us participate in the care of this patient. Forquestions regarding this report, please contact the number below. Cj Castro Jr., MD IMG DX [facility] WANG * XR Wrist 3 Views Right (08/23/2020 9:26 AM EST) Anatomical Region Laterality Modality Right Digital Radiogra phy Impressions 08/23/2020 9:59 AM EST 1. ??Multifocal osteoarthropathy of the wrists, thumb, and fingers, most pronounced at the first carpometacarpal joint. 2. ??Status post ORIF of healed distal radius fracture. Thank you for letting us participate in the care of this patient. For questions regarding this report, please contact the number below. ? Narrative 08/23/2020 9:59 AM EST EXAMINATION: XR HAND MIN 3 VIEWS RIGHT (GENERIC), XR WRIST 3 VIEWS RIGHT CLINICAL HISTORY: R hand pain (as entered by ordering provider in the order requisition) TECHNIQUE: PA, oblique, and lateral views the right hand. PA, oblique, and lateral views of the right wrist. COMPARISON: Right wrist radiographs 08/19/2019 FINDINGS: Wrist: Postoperative changes status post ORIF of healed distal radial fracture. No disruption of the hardware. Configuration of the hardware is similar when compared to August 2019. No focal soft tissue swelling. There is diffuse osseous mineralization. There is first carpometacarpal osteoarthropathy. No new fracture or malalignment. Hand: Diffuse osseous demineralization. Small marginal osteophytes at the thumb interphalangeal joint and the index finger DIP joint. Procedure Note Dena Parker MD - 08/23/2020 EXAMINATION: XR HAND MIN 3 VIEWS RIGHT (GENERIC), XR WRIST 3 VIEWS RIGHT CLINICAL HISTORY: R hand pain (as entered by ordering provider in theorder requisition) TECHNIQUE: PA, oblique, and lateral views the right hand. PA, oblique, and lateralviews of the right wrist. COMPARISON: Right wrist radiographs 08/19/2019 FINDINGS: Wrist: Postoperative changes status post ORIF of healed distal radialfracture. No disruption of the hardware. Configuration of the hardware is similarwhen compared to August 2019. No focal soft tissue swelling. There is diffuseosseous mineralization. There is first carpometacarpal osteoarthropathy. No newfracture or malalignment. Hand: Diffuse osseous demineralization. Small marginal osteophytes at thethumb interphalangeal joint and the index finger DIP joint. IMPRESSION 1. Multifocal osteoarthropathy of the wrists, thumb, and fingers, most pronounced at the first carpometacarpal joint. 2. Status post ORIF of healed distal radius fracture. Thank you for letting us participate in the care of this patient. Forquestions regarding this report, please contact the number below. Cj Castro Jr., MD IMG DX [facility] WANG documented in this encounter Visit Diagnoses Diagnosis Pain in right wrist Pain in joint, forearm Right hand pain Pain in limb Pain in right wrist Pain in joint, forearm Right hand pain Pain in limb documented in this encounter Care Teams Sheep Shearer Relationship Specialty Start Date End Date Dena Alfonso APRN [address] [place] [address] PCP - General Geriatric Medicine 10/12/16 documented as of this encounter
--- OUTSIDE RECORDS SUMMARY | 2024-02-27 12:42 | XMS_ITS | Encounter Summary ---
Author Organization [facility] Address [facility] [place] [address] Care Team Providers Care Rail Manager Name Role Phone Dena Alfonso PHOTO COLORER Primary Care Provider Encounter Details Date Type Department Care Team (Late st Contact Info) Description 02/22/2023 1:49 PM EDT - 02/22/2023 11:59 PM EDT Hospital Encounter Mammography/DXA at [facility] [place] [phone] Linda Tamayo APRN [address] [place] [address] DR HEMATOLOGY AND ONCOLOGY [place], [place] [id number] History of left breast cancer; BRCA1 positive; Encounter for screening mammogram for malignant neoplasm of breast Discharge Disposition: Home Social History Tobacco Use Types Packs/Day Years [...] on file documented as of this encounter Medications at Time of Discharge Medication Sig Dispensed Refills Start Date End Date Berb Moreira/herbal complex no.18 (BERBERINE-HERBAL COMB NO.18 ORAL) Take 500 mg by mouth 3 times daily. For antihyperglycemic effects augmented betamethasone dipropionate (DIPROLENE-AF) 0.05 % Ointment apply on a twice daily basis as needed for her hand eczema 45 g 3 05/27/2020 ONETOUCH VERIO Strip USE TO TEST DAILY. GOAL A1C IS LESS THAN 7 3 10/20/2018 ONETOUCH VERIO IQ METER Misc USE TO TEST DAILY. GOAL A1C LESS THAN 7 0 10/20/2018 ONE TOUCH DELICA 33 gauge Misc USE TO TEST DAILY. GOAL A1C IS LESS THAN 7 3 10/20/2018 valACYclovir (VALTREX) 500 mg Tablet Take 1 tablet by mouth 2 times daily. 6 tablet 10/24/2016 cholecalciferol, Vitamin D3, 50 mcg (2,000 unit) Capsule Take by mouth daily. EPINEPHrine (EPIPEN) 0.3 mg/0.3 mL (1:1,000) Auto-Injector Inject 0.3 mLs into the muscle once as needed (difficulty breathing, throat swelling, loss of consciousness) for up to 1 dose. Call 911. 2 each 1 06/16/2014 estradioL (ESTRACE) 0.01 % (0.1 mg/gram) Cream daily. 09/05/2022 estradioL (ESTRACE) 0.01 % (0.1 mg/gram) Cream INSERT 1 GRAM VAGINALLY EVERY NIGHT AT BEDTIME FOR 2 WEEKS THE 1 GRAM TWICE A WEEK AT BEDTIME DIRECTED - STORE AT ROOM TEMPERATURE IN A DRY PLACE 09/04/2022 estradioL (ESTRACE) 0.01 % (0.1 mg/gram) CreamIndications:Vagi nal atrophy Place one gram vaginally every night for two weeks then one gram vaginally twice a week at night. 30 g 5 09/04/2022 acetaminophen (Tylenol) 500 mg Tablet Take 1,000 mg by mouth every 6 hours as needed for Pain. olopatadine (PATADAY) 0.2 % Drops INSTILL 1 DROP INTO AFFECTED EYE S ONCE DAILY NEEDED 3 12/12/2017 fluticasone (FLONASE) 50 mcg/actuation [place], Suspension 1 spray by Each Nare route daily as needed. cetirizine (ZYRTEC) 10 mg Tablet Take 10 mg by mouth daily as needed for Allergies. Reported on 10/12/2016 documented as of this encounter Plan of Treatment Upcoming Encounters Date Type Department Care Team (Late st Contact Info) Description 03/27/2024 11:00 AM EDT Office Visit Hematology/Oncology at [address] [phone] El Bernardo MD [facility] [place] [address] HEMATOLOGY AND ONCOLOGY [place], [place] [address] 04/21/2024 8:00 AM EST Appointment Mammography/[place] [address] HEMATOLOGY AND ONCOLOGY [place], [place] [id number] documented as of this encounter Procedures Procedure Name Priority Date/Time Associated Diagnosis Comments MAMMO SCREENING CAD AND JEAN BILATERAL Routine 02/22/2023 2:06 PM EDT History of left breast cancer BRCA1 positive Encounter for screening mammogram for malignant neoplasm of breast documented in this encounter Results * Mammo Screening Cad and Jean Bilateral (02/22/2023 2:06 PM EDT) Anatomical Region [...] have questions please contact the health career counselor that requested your imaging first. ? Narrative 02/22/2023 2:31 PM EDT EXAMINATION: MAMMO SCREENING CAD AND JEAN BILATERAL REASON FOR EXAM: Screening TECHNIQUE: CC [...] Linda Tamayo APRN IMG MAMMO ORDERA BLES documented in this encounter Visit Diagnoses Diagnosis History of left breast cancer BRCA1 positive Genetic susceptibility to malignant neoplasm of breast Encounter for screening mammogram for malignant neoplasm of breast Other screening mammogram documented in this encounter Care Teams Rail Manager Relationship Specialty Start Date End Date Dena Alfonso APRN [address] [place] [address] PCP - General Geriatric Medicine 10/12/16 documented as of this encounter
--- OUTSIDE RECORDS SUMMARY | 2024-02-27 12:42 | XMS_ITS | Encounter Summary ---
Author Organization [facility] Address [facility] [place] [address] Care Team Providers Care Virtualization Engineer Name Role Phone Dena Alfonso APRN Primary Care Provider [phone] Encounter Details Date Type Department Care Team (Latest Contact Info) Description 02/22/2023 Travel Social History Tobacco Use Types Packs/Day [...] 11:00 AM EDT Office Visit Hematology/Oncology at [address] [phone] El Bernardo MD [facility] [address] Linda Tamayo [address] HEMATOLOGY AND ONCOLOGY [place], [place] [address] 04/21/2024 8:00 AM EST Appointment Mammography/[place] [phone] [address] Tamayo [address] HEMATOLOGY AND ONCOLOGY [place], [place] [phone] documented as of this encounter Visit Diagnoses Not on filedocumented in this encounter Care Teams Virtualization Engineer Relationship Specialty Start Date End Date Dena Alfonso APRN [address] [place] [address] PCP - General Geriatric Medicine 10/12/16 documented as of this encounter
--- OUTSIDE RECORDS SUMMARY | 2024-02-27 12:42 | XMS_ITS | Encounter Summary ---
Author Organization [facility] Address [facility] [address] Care Team Providers Care Binitrotoluene Operator Name Role Phone Dena Alfonso LIZABETH Primary Care Provider Encounter Details Date Type Department Care Team (Late Contact Info) Description 09/21/2022 Ancillary Procedure Radiology Library at [facility] [place] [phone] Dena Alfonso APRN [address] [place] [phone] Social History Tobacco Use Types Packs/Day Years [...] 11:00 AM EDT Office Visit Hematology/Oncology at [address] [phone] El Bernardo MD [facility] [place] [address] Linda Tamayo APRN [address] [place] [address] DR HEMATOLOGY [place] [address] 04/21/2024 8:00 AM EST Appointment Mammography/[place] [address] Linda Tamayo APRN [address] [place] [address] DR HEMATOLOGY AND ONCOLOGY [place], [place] [phone] documented as of this encounter Procedures Procedure Name Priority Date/Time Associated Diagnosis Comments FILM LIBRARY STORAGE ONLY NUCLEAR MEDICINE Routine 09/21/2022 12:00 AM EDT documented in this encounter Results * Film Library- Storage Only nuclear medicine (09/21/2022 12:00 AM EDT) Narrative [facility] - 09/22/2022 3:54 AM EDT This exam is auto-finalizing. It's purpose is for storage only. Dena Alfonso APRN IMG FILM LIBRARY OR DERABLES [place], [place] documented in this encounter Visit Diagnoses Not on filedocumented in this encounter Care Teams Binitrotoluene Operator Relationship Specialty Start Date End Date Dena Alfonso APRN [address] [place] [address] PCP - General Geriatric Medicine 10/12/16 documented as of this encounter
--- OUTSIDE RECORDS SUMMARY | 2024-02-27 12:42 | XMS_ITS | Encounter Summary ---
Author Organization [facility] [place] [address] Care Team Providers Care Tin Whiz Machine Operator Name Role Phone Dena Alfonso APRN Primary Care Provider [phone] Reason for Referral * Occupational Therapy (Routine) - Closed Specialty Diagnoses / Procedures Referred By Mariah tate Referred To Contact Orthopaedics Diagnoses Pain in right wrist Right hand pain clinic 08/23?? Cj Castro Jr., MD [facility] [place] [address] Sue Osorio OT [facility] PHYSICAL MEDICINE & [place] [address] Referral ID Status Reason Start Date Expiration Date V isits Requested Visits Authorized [id number] Closed Evaluate and Treat 08/23/2020 08/23/2021 100 100 Reason for Visit * Reason Comments Establish Care XR R hand and wri st pain - ganglion cyst Hx wrist fx 04/2019 and DOS: 04/22/19 - [facility] * Consultation (Routine) - Closed Specialty Diagnoses / Procedures Referred By Contfiona t Referred To Contact Orthopaedics Diagnoses Ganglion, left hand RIGHT HAND AND WRIST PAIN,GANGLION CYST, HX-WRIST FX-04/2019 Dena Alfonso APRN [address] [place] [address] [facility] [address] [place] [phone] Referral ID Status Reason Start Date Expiration Date V isits Requested Visits Authorized [id number] Closed Consult, Test & Treat Connection Center PCP Updated and/or Approved 06/06/2020 06/06/2021 6 6 Encounter Details Date Type Department Care Team (Latest Contact Info) Description 08/23/2020 10:30 AM EST Office Visit [place] [address] Cj Castro Jr., MD [facility] [place] [address] Pain in right wrist; Right hand pain; Arthritis of carpometacarpal (CMC) joint of right thumb; Type I or II open Colles' fracture of right radius, sequela; Extensor tenosynovitis of right wrist Social History Tobacco Use Types Packs/Day Years [...] on file documented as of this encounter Last Filed Vital Signs Vital Sign Reading Time Taken Comments Blood Pressure 105/76 08/23/2020 10:35 AM EST Pulse 81 08/23/2020 10:35 AM EST Temperature - - Respiratory Rate - - Oxygen Saturation - - Inhaled Oxygen Concentration - - Weight 86.6 kg (191 lb) 08/23/2020 10:35 AM EST Height 165.1 cm (5' 5) 08/23/2020 10:35 AM EST Body Mass Index 31.78 08/23/2020 10:35 AM EST documented in this encounter Progress Notes * Cj Castro Jr., MD - 08/23/2020 10:30 AM EST Rebeca Hernández 1960 [id number] 08/23/2020 HPI: Rebeca is 59 y.o. 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 The onset of symptoms was acute with a fall resulting in wrist fracture, treated by ORIF in November, 2019. Since that time she has done well but has developed pain at the thenar base of the thumb with vigorous use and a dorsal hand swelling that is painless . The pain is localized to the base of the thumb and radiates nowhere. The patient notes noneurosensory symptoms. There is some pain at rest, rare pain at night interfering with sleep, and pirmarily pain aggravated by activity. The patient complains of difficulty with pinch activities and power grasp. She is unable to take NSAIDS due to GI sxs. Takes nothing specific in the way of medication. Specific treatment and/or therapy to date include nothing specific. No related injury. Interferes with ADLS and her piano playing. Past Medical History: Diagnosis Date ??? Allergic rhinitis ??? Bipolar disorder, rapid cycling ??? BRCA1 gene mutation positive ??? Breast cancer ??? Cardiomyopathy ??? Chronic anxiety ??? Diabetes ??? Migraines ??? Vaginal prolapse Family History Problem Relation Age of Onset ??? Breast Cancer Other ??? Allergic Rhinitis Father ??? Breast Cancer Maternal Grandmother ??? Breast Cancer Mother ??? Asthma Neg Hx Social History Socioeconomic History ??? Marital status: Spouse name: Not on file ??? Number of children: Not on file ??? Years of education: Not on file ??? Highest education level: Not on file Occupational History ??? Not on file Tobacco Use ??? Smoking status: Never Smoker ??? Smokeless tobacco: Never Used ??? Tobacco comment: only exposure was as a child Substance and Sexual Activity ??? Alcohol use: No Comment: Occasionally ??? Drug use: No ??? Sexual activity: Not Currently Other Topics Concern ??? Not on file Social History Narrative ??? Not on file Social Determinants of Health Financial Resource Strain: ??? Difficulty of Paying Living Expenses: Not on file Food Insecurity: ??? Worried About Running Out of Food in the Last Year: Not on file ??? Ran Out of Food in the Last Year: Not on file Transportation Needs: ??? Lack of Transportation (Medical): Not on file ??? Lack of Transportation (Non-Medical): Not on file Physical Activity: ??? Days of Exercise per Week: Not on file ??? Minutes of Exercise per Session: Not on file Review of Systems General: Negative Skin: Negative Eyes: Negative Cardiac: Negative Respiratory: Negative GI: Negative : Negative Musculoskeletal: Negative other than related to the chief complaint. Neurological: Negative Meds: Current Outpatient Medications on File Prior to Visit Medication Sig Dispense Refill ??? metoprolol succinate XL (Toprol-XL) 25 mg Tablet Sustained Release 24 hr Take 1 tablet by mouthdaily. 30 tablet 12 ??? augmented betamethasone dipropionate (DIPROLENE-AF) 0.05 % Ointment apply on a twice daily basis as needed for her hand eczema 45 g 3 ??? ONETOUCH VERIO Strip USE TO TEST DAILY. GOAL A1C IS LESS THAN 7 3 ??? ONETOUCH VERIO IQ METER Misc USE TO TEST DAILY. GOAL A1C LESS THAN 7 0 ??? ONE TOUCH DELICA 33 gauge Misc USE TO TEST DAILY. GOAL A1C IS LESS THAN 7 3 ??? olopatadine (PATADAY) 0.2 % Drops INSTILL 1 DROP INTO AFFECTED EYE S ONCE DAILY NEEDED 3 ??? betamethasone dipropionate (DIPROLENE) 0.05 % Ointment Apply to hand eczema 1-2 times daily, prn 45 g 3 ??? Cholecalciferol, Vitamin D3, (VITAMIN D-3) 2,000 unit Capsule Take by mouth. ??? meloxicam (MOBIC) 15 mg Tablet TAKE ONE TABLET BY MOUTH EVERY DAY NEEDED FOR PAIN 0 ??? fluticasone (FLONASE) 50 mcg/actuation [place], Suspension 1 spray daily. ??? valACYclovir (VALTREX) 500 mg Tablet Take 1 tablet by mouth 2 times daily. (Patient not taking:Reported on 02/19/2019) 6 tablet 0 ??? cetirizine (ZYRTEC) 10 mg Tablet Take 10 mg by mouth daily as needed for Allergies. Reported on10/12/2016 ??? [DISCONTINUED] estradiol (VAGIFEM) [address] 1 tablet vaginally twice a week. (Patient not taking: Reported on 08/23/2020) 8 tablet 11 ??? EPINEPHrine (EPIPEN) 0.3 mg/0.3 mL (1:1,000) Auto-Injector Inject 0.3 mLs into the muscle once as needed (difficulty breathing, throat swelling, loss of consciousness) for up to 1 dose. Call 911.(Patient not taking: Reported on 08/23/2020) 2 each 1 No current facility-administered medications on file prior to visit. Physical Exam: Blood pressure 105/76, pulse 81, height 165.1 cm (5' 5), weight 86.6 kg (191 lb). Patient is well-appearing, alert and oriented, accompanied by noone. Breathing is easy at rest. Ambulates with normal gait. Uses no cane. Appearance noted and with no features characteristic of primary OA. Range of motion Cervical spine; flex/extension, rotation, and lateral bending all wnl. Remainder upper limbs with normal ROM bilaterally. No thenar atrophy or softening noted. No palmar crepitus or flexor tenosynovitis. no triggering. Pain to palpation at thenar base of thumb, RIGHT greater than LEFT. There is no pain nor palpable crepitus with active flexion or passive extension of the fingers or thumb on RIGHT. No pain with resisted FPL active. Ulnocarpal abutment maneuvers produce no pain. DRUJ stable. Midcarpal laxity not evident on either side. Crank fowl blood tester LEFT, pos RIGHT; Grind test heg LEFT, pos RIGHT. Flexion-axial loading with 1+ subluxation and crepitus and pain RIGHT; no subluxation with no pain LEFT. Jacike's test neg. MCPJ bilateral with no varus/valgus laxity. Wrist flexion test neg. Tinel's neg at bilateral wrist. Ulnar nerve neg at elbow. Trevor's test normal with good collateral radial and ulnar artery filling. Motor strength 5/5 bilateral to manual resistance testing. Deep tendon reflexes 2+, symmetrical bilateral. Sensation intact bilateral to light touch. No skin lesions or stasis dermatitis. There is a dorsal soft tissue swelling that moves with the extensor tendon excursion and is nontender and not localized or fixed. Imaging: Well healed distal radius fracture with distally placed plate with out joint penetration by screws.Evidence for thumb CMCJ arthritis with subluxation and joint space narrowing. Active Problem List: Patient Active Problem List Diagnosis Code ??? Breast cancer C50.919 ??? Depression F32.9 ??? Chest pain R07.9 ??? Cardiomyopathy I42.9 ??? GERD (gastroesophageal reflux disease) K21.9 ??? Palpitations R00.2 ??? History of left knee surgery Z98.890 ??? BRCA1 positive Z15.01, Z15.09 ??? Nevus D22.9 ??? Environmental allergies Z91.09 ??? Chronic allergic rhinitis J30.9 ??? Allergic rhinoconjunctivitis J30.9, H10.10 ??? Diabetes mellitus type 2, diet-controlled E11.9 ??? Allergic rhinoconjunctivitis of both eyes J30.9, H10.13 ??? Irritant hand dermatitis L24.9 ??? Vaginal prolapse N81.10 Assessment: S/P ORIF RIGHT distal radius fracture - no apparent ill effects from indwelling plate Early RIGHT thumb basal joint arthritis Dorsal extensor tenosynovitis Plan: The nature of the problem and the individual situation was discussed at length with the patient. Consistent with treatment of the primary diagnosis, we have recommended thenar strengthening and thumbspica splinting for control of basal joint sxs. We will observe for any issues with indwelling plate but there is no sign of trouble or flexor TSV at this time. She is seen in [facility] for splint fabrication and thenar exercises. Will see her back on prn basis per sxs. Cj Castro Jr, MD Department of Orthopaedics [facility] documented in this encounter Plan of Treatment Upcoming Encounters Date Type Department Care Team (Late st Contact Info) Description 03/27/2024 11:00 AM EDT Office Visit Hematology/Oncology at [address] [phone] El Bernardo MD [facility] [place] [address] Linda Tamayo APRN [address] [place] [address] [place] [address] 04/21/2024 8:00 AM EST Appointment Mammography/[place] [address] Linda Tamayo APRN [address] [place] [address] [place] [address] Scheduled Referrals Name Type Priority Associated Diagnoses Order Schedule Referral to Occupational Therapy Outpatient Referral Routine Pain in right wrist Right hand pain Ordered: 08/23/2020 documented as of this encounter Visit Diagnoses Diagnosis Pain in right wrist Pain in joint, forearm Right hand pain Pain in limb Arthritis of carpometacarpal (CMC) joint of right thumb Type I or II open Colles' fracture of right radius, sequela Extensor tenosynovitis of right wrist documented in this encounter Care Teams Tin Whiz Machine Operator Relationship Specialty Start Date End Date Dena Alfon[place] [address] [place] [address] PCP - General Geriatric Medicine 10/12/16 documented as of this encounter
--- OUTSIDE RECORDS SUMMARY | 2024-02-27 12:42 | XMS_ITS | Encounter Summary ---
Author Organization [facility] Address [facility] [place] [address] Care Team Providers Care Remote Control Mirror Installer Name Role Phone Dena Alfonso APRN Primary Care Provider [phone] Encounter Details Date Type Department Care Team (Late Contact Info) Description 11/02/2021 Telephone Obstetrics [place] [address] Tiffany Tuttle Social History Tobacco Use Types Packs/Day Years [...] 11:00 AM EDT Office Visit Hematology/Oncology at [address] [phone] El Bernardo MD [facility] [place] [address] Linda Tamayo WASHER ENGINEER HELPER [address] [place] [address] DR HEMATOLOGY AND ONCOLOGY [place], [place] [address] 04/21/2024 8:00 AM EST Appointment Mammography/[place] [phone] Linda Tamayo WASHER ENGINEER HELPER [address] [place] [address] DR HEMATOLOGY AND ONCOLOGY [place], [place] [id number] documented as of this encounter Visit Diagnoses Not on filedocumented in this encounter Care Teams Remote Control Mirror Installer Relationship Specialty Start Date End Date Dena Alfonso APRN [address] [place], [place] [id number] PCP - General Geriatric Medicine 10/12/16 documented as of this encounter
--- OUTSIDE RECORDS SUMMARY | 2024-02-27 12:42 | XMS_ITS | Encounter Summary ---
Author Organization [facility] Address [facility] [place] [address] Care Team Providers Care Microbiology Lab Technician Name Role Phone Dena Alfonso APRN Primary Care Provider [phone] Encounter Details Date Type Department Care Team (Latest Contact Info) Description 07/14/2020 10:48 AM EST - 07/14/2020 11:28 AM [facility] Hospital Encounter Mammography/DXA at [facility] [place] [phone] El Bernardo MD [facility] [place] [address] Breast cancer, stage 2, left; 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; Breast cancer screening by mammogram Discharge Disposition: Home Social History Tobacco Use [...] Sig Dispensed Refills Start Date End Date augmented betamethasone dipropionate (DIPROLENE-AF) 0.05 % Ointment [...] dose. Call 911. 2 each 1 06/16/2014 olopatadine (PATADAY) 0.2 % Drops INSTILL 1 DROP INTO AFFECTED EYE S ONCE DAILY NEEDED 3 12/12/2017 fluticasone (FLONASE) 50 mcg/actuation Spring, Suspension 1 spray by Each Nare route daily as needed. cetirizine (ZYRTEC) 10 mg Tablet Take 10 mg by mouth daily as needed for Allergies. Reported on 10/12/2016 meloxicam (MOBIC) 15 mg Tablet TAKE ONE TABLET BY MOUTH EVERY DAY NEEDED FOR PAIN 0 08/04/2018 03/29/2021 betamethasone dipropionate (DIPROLENE) 0.05 % Ointment Apply to hand eczema 1-2 times daily, prn 45 g 3 02/10/2018 09/19/2020 predniSONE (DELTASONE) 20 mg Tablet TAKE ONE TABLET BY MOUTH EVERY DAY 0 10/29/2017 07/21/2020 estradiol (VAGIFEM) 10 mcg TabletIndications:Menopa use Place 1 tablet vaginally twice a week. 8 tablet 11 04/28/2015 08/23/2020 documented as of this encounter Plan of Treatment Upcoming Encounters Date Type Department Care Team (Late st Contact Info) Description 03/27/2024 11:00 AM EDT Office Visit Hematology/Oncology at [address] [phone] El Bernardo MD [facility] [address] Linda Tamayo APRN [address] [place] [address] [place] [address] 04/21/2024 8:00 AM EST Appointment Mammography[place] [phone] Linda Tamayo APRN [address] [place] [address] [place] [address] documented as of this encounter Procedures Procedure Name Priority Date/Time Associated Diagnosis Comments MAMMO SCREENING CAD AND JEAN BILATERAL Routine 07/14/2020 11:23 AM EST Breast cancer, stage 2, left 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 Breast cancer screening by mammogram documented in this encounter Results * Mammo Screening Cad and Jean Bilateral (07/14/2020 11:23 AM EST) Anatomical Region Laterality Modality Breast Bilateral Mammography Narrative 07/14/2020 11:27 AM EST REASON FOR EXAM: Screening. History of left breast cancer. TECHNIQUE: CC and MLO views were obtained of both breasts. Computer aided detection was used. 3D tomosynthesis images were obtained in addition to 2D images. Comparison: The study is compared with prior images. FINDINGS: Breast density: There are scattered areas of fibroglandular density. There are no suspicious microcalcifications, masses, or areas of distortion. There are post treatment changes in the left breast. CONCLUSION: No mammographic evidence of malignancy. RECOMMENDATION: Routine screening. BIRADS CATEGORY 2: BENIGN FINDINGS * ??Regular screening mammograms starting between age 40 and 50 reduces the risk of from breast cancer. * ??All screening tests have both risks and benefits. These risks and benefits should be assessed for each individual patient through discussion with their provider to determine their preferred breast cancer screening schedule. * ??Women should report any breast changes to a health care provider right away. * ??Some women, because of their family history, a genetic tendency, or other factors, should be screened with annual breast MRI as well as with mammograms. (The number of women who fall into this category is very small). Patients and health care providers should discuss each patients history to decide if earlier screening and/or breast MRI are appropriate. * ??Screening should continue as long as a woman is in good health and is expected to live 10 years or longer. * ??Screening mammography may not detect 10-15% of breast cancers. Thank you for letting us participate in the care of this patient. For questions regarding this report, please contact the number below. ? Electronically signed by: Kalpana De Dios MD, [facility] ([phone]), at 07/14/2020 11:27 AM El Bernardo MD IMG MAMMO ORDERABLES documented in this encounter Visit Diagnoses Diagnosis Breast cancer, stage 2, left 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 Genetic susceptibility to malignant neoplasm of breast Breast cancer screening by mammogram documented in this encounter Care Teams Microbiology Lab Technician Relationship Specialty Start Date End Date Dena Alfonso APRN [address] [place] [address] PCP - General Geriatric Medicine 10/12/16 documented as of this encounter
--- OUTSIDE RECORDS SUMMARY | 2024-02-27 12:42 | XMS_ITS | Encounter Summary ---
Author Organization [facility] Address [facility] [place] [address] Care Team Providers Care Machine Operator Cane Cutter Name Role Phone Dena Alfonso APRN Primary Care Provider [phone] Reason for Visit * Reason Onset Date Comments Rib Injury 09/03/2022 pain Encounter Details Date Type Department Care Team (Late st Contact Info) Description 09/03/2022 Telephone Hematology/Oncology at [address] [phone] Anna Hanna RN Rib Injury (pain) Social History Tobacco Use Types Packs/Day Years [...] on file documented as of this encounter Miscellaneous Notes * Telephone Encounter - Anna Hanna RN - 09/03/2022 10:09 AM EDT Called and spoke with Rebeca Caldwellar reports new pain/tenderness in lower right rib area. She denies doing any activity that would contribute to this. Advised we do not have the capacity to see her this week and she should reach out to PCP for evaluation. She is also seeing [facility] this week and will check with them. Will keep her appointment with us on 09/12. She is in agreement with plan. --- Message from Mariela Pineda sent at 09/03/2022 9:27 AM EDT ----- Regarding: Pain under Ribs, Chest tenderness Adilene Parksyn is scheduled for a 6M breast follow up with Linda next Saturday. She called in today to ask if she can be seen sooner. She said that the past few weeks she's had pain under her ribs nearher breast. She said it feels tender. She didn't give me a number on the pain scale but said it's enough to be uncomfortable. At the moment I don't have anything on Az's schedule and Cielo is out on PTO this week so cannot add her . Can you please check in and let me know how to proceed with scheduling? documented in this encounter Plan of Treatment Upcoming Encounters Date Type Department Care Team (Late st Contact Info) Description 03/27/2024 11:00 AM EDT Office Visit Hematology/Oncology at [address] [phone] El Bernardo MD [facility] [place] [address] [address] HEMATOLOGY AND ONCOLOGY [place], [place] [address] 04/21/2024 8:00 AM EST Appointment Mammography/[place] [address] [address] [place] [address] documented as of this encounter Visit Diagnoses Not on filedocumented in this encounter Care Teams Machine Operator Cane Cutter Relationship Specialty Start Date End Date Dena Alfonso APRN [address] [place] [address] PCP - General Geriatric Medicine 10/12/16 documented as of this encounter
--- OUTSIDE RECORDS SUMMARY | 2024-02-27 12:42 | XMS_ITS | Encounter Summary ---
Author Organization [facility] Address [facility] [place] [address] Care Team Providers Care Shelving Supervisor Name Role Phone Kykraig Dena PUDDLER HELPER Primary Care Provider [phone] Reason for Visit * Reason Comments Follow-up * Consultation (Routine) - Closed Specialty Diagnoses / Procedures Referred By Mariah tate Referred To Contact Cardiology Diagnoses Thoracic aortic ectasia Personal history of other diseases of the circulatory system Shortness of breath Dena Alfonso APRN [address] [place] [address] Lester Parada MD [facility] [place] [address] Referral ID Status Reason Start Date Expiration Date V isits Requested Visits Authorized [id number] Closed Consult, Test & Treat Connection Center PCP Updated and/or Approved 07/20/2020 07/20/2021 6 6 Encounter Details Date Type Department Care Team ([facility] st Contact Info) Description 07/21/2020 11:00 AM EST Office Visit Cardiology at [address] [phone] Xuan Foote MD [facility] [place] [address] Ischemic cardiomyopathy; Aortic aneurysm without rupture, unspecified portion of aorta Social History Tobacco Use Types Packs/Day Years [...] Sign Reading Time Taken Comments Blood Pressure 125/87 07/21/2020 10:58 AM EST Pulse 77 07/21/2020 10:58 AM EST Temperature - - Respiratory Rate 18 07/21/2020 10:58 AM EST Oxygen Saturation 100% 07/21/2020 10:58 AM EST Inhaled Oxygen Concentration - - Weight 86.6 kg (191 lb) 07/21/2020 10:58 AM EST Height 165.1 cm (5' 5) 07/21/2020 10:58 AM EST Body Mass Index 31.78 07/21/2020 10:58 AM EST documented in this encounter Progress Notes * Xuan Foote MD - 07/21/2020 11:00 AM EST HPI: Rebeca Hernández is a 59 y.o. year old female with a pmhx of brca and nonischemic cardiomyopathy, (normal heart catheterization in 2011) coming for evaluation. Originally, echocardiogram was read out as 40%, but repeat echocardiogram performed in May 2015 demonstrated an ejection fraction of 6 5%. She has a history of normal heart arteries via left heart catheterization. She is exercising -- walking and some physical therapy. Last EF 65%. Some shortness of breath. Overall feels well. Off meds now secondary to allergies, ef has been monitored. She has had a fainting spell which scared her, and she was borderline diabetic. PMHX Patient Active Problem List Diagnosis Code ??? [...] hand dermatitis L24.9 ??? Vaginal prolapse N81.10 MEDS: reviewed SOCHX Social History Socioeconomic History ??? Marital status: Spouse name: None ??? Number of children: None ??? Years of education: None ??? Highest education level: None Occupational History ??? None Social Needs ??? Financial resource strain: None ??? Food insecurity Worry: None Inability: None ??? Transportation needs Medical: None Non-medical: None Tobacco Use ??? Smoking status: Never Smoker ??? Smokeless tobacco: Never Used ??? Tobacco comment: only exposure was as a child Substance and Sexual Activity ??? Alcohol use: No Comment: Occasionally ??? Drug use: No ??? Sexual activity: Not Currently Lifestyle ??? Physical activity Days per week: None Minutes per session: None ??? Stress: None Relationships ??? Social connections Talks on phone: None Gets together: None Attends evangelical service: None Active member of club or organization: None Attends meetings of clubs or organizations: None Relationship status: None ??? Intimate partner violence Fear of current or ex partner: None Emotionally abused: None Physically abused: None Forced sexual activity: None Other Topics Concern ??? None Social History Narrative ??? None FAMHX Family History Problem Relation Age of Onset ??? Breast Cancer Other ??? Allergic Rhinitis Father ??? Breast Cancer Maternal Grandmother ??? Breast Cancer Mother ??? Asthma Neg Hx ROS Negative for blood in stool or urine. No fevers or chills. No recent syncope. Otherwise all other systems were reviewed and found to be negative. Physical Examination Patient Vitals for the past 24 hrs: Pulse Resp BP SpO2 07/21/20 1058 77 18 125/87 100 % General: no acute distress Behavioral: Alert and oriented to person place and time Heent: Cranial nerves 2-12 grossly intact, JVP not elevated, no carotid bruits CV: RRR normal s1 and s2 without murmurs present Lungs: CTA bilaterally Abd: soft, nt, bs positive, no pulsatile masses Extrem: no lower extremity edema Pulses: radial Pulses = bilaterally Skin: warm, dry without rashes Neuro: muscle strength grossly = bilaterally Assessement and Plan: 59 year old female with brca, s/p chemo and radiation in 2003, history of reduced LV function but recovered to 60-65% with normal strain. 1. CM -- resolved, normal EF and and normal strain. 2. Sob -- stable. 3. Follow up 4 months with echo. I am concerned about change in aortic diameter 4. Palpitations and dilated aortic root -- start metoprolol 25mg once daily. I am concerned about the change in aortic root dimensions (marked change), want echo sooner to check dimensions. documented in this encounter Miscellaneous Notes * Addendum Note - Xuan Foote MD - 07/21/2020 11:00 AM ESTAddended by: XUAN FOOTE on: 07/21/2020 11:30 AM Modules accepted: Orders documented in this encounter Plan of Treatment Upcoming Encounters Date Type Department Care Team (Late st Contact Info) Description 03/27/2024 11:00 AM EDT Office Visit Hematology/Oncology at [address] [phone] El Bernardo MD [facility] [place] [address] Linda Tamayo [address] HEMATOLOGY AND ONCOLOGY [place], [place] [address] 04/21/2024 8:00 AM EST Appointment Mammography[place] [address] Linda Tamayo [address] HEMATOLOGY AND ONCOLOGY [place], [place] [phone] documented as of this encounter Visit Diagnoses Diagnosis Ischemic cardiomyopathy Other specified forms of chronic ischemic heart disease Aortic aneurysm without rupture, unspecified portion of aorta documented in this encounter Care Teams Shelving Supervisor Relationship Specialty Start Date End Date Dena Alfonso APRN [address] [place] [address] PCP - General Geriatric Medicine 10/12/16 documented as of this encounter
--- OUTSIDE RECORDS SUMMARY | 2024-02-27 12:42 | XMS_ITS | Encounter Summary ---
Author Organization [facility] Address [facility] [place] [address] Care Team Providers Care Solid State Tester Name Role Phone Dena Alfonso APRN Primary Care Provider [phone] Reason for Visit * Occupational Therapy (Routine) - Closed Specialty Diagnoses / Procedures Referred By Mariah tate Referred To Contact Orthopaedics Diagnoses Pain in right wrist Right hand pain clinic 08/23?? Cj Castro Jr., MD [facility] [place] [address] Sue Osorio OT [facility] PHYSICAL MEDICINE & [place] [address] Referral ID Status Reason Start Date Expiration Date V isits Requested Visits Authorized [id number] Closed Evaluate and Treat 08/23/2020 08/23/2021 100 100 Encounter Details Date Type Department Care Team (Latest Contact Info) Description 08/23/2020 3:00 PM EST Office [place] [address] Sue Osorio OT Pain in right wrist; Arthritis of carpometacarpal (CMC) joint of right thumb Social History Tobacco Use Types Packs/Day Years [...] as of this encounter Progress Notes * Sue Osorio OT - 08/23/2020 3:00 PM EST OCCUPATIONAL THERAPY ORTHOTIC EVALUATION Referral Source: Dr Matthew Carroll MD Follow-up: As needed Total Treatment time: 30 Minutes Timed Code Treatment Time: 30 minutes OCCUPATIONAL PROFILE: Rebeca Hernández is a 59 y.o. year old right hand dominant female who is senetoday for treatment of her Right thumb pain. Rebeca Hernández is referred to Occupational Therapy for evaluation and treatment to include fabrication of a custom orthosis. Patient presents today alone. Date of onset of symptoms: One year Date of surgery: Na History of Right distal radius fracture with ORIF- concern of plate causing discomfort/irritation Pertinent History and/or Co-morbidities: 1. Pain in right wrist 2. Arthritis of carpometacarpal (CMC) joint of right thumb OCCUPATIONAL PERFORMANCE DEFICITS: Rebeca Hernández is limited with current performance due to pain, limited mobility/range of motion and limited strength. Global Mental Function: With gross screening of patient???s global mental functions, patient demonstrates orientation to person, place, time, and situation. Patient???s affect/behavior is appropriateand cooperative today. Patient Specific Functional Scale (PSFS) (unable to perform 0/10 - Able to perform without difficulty 10/10) Activity At Evaluation 1.) pinch tasks 08/24 2.) grasping 10 3.) opening containers 10 4.) sleeping 4/10 Disabilities of the Arm, Shoulder, and Hand (DASH): THE DISABILITIES OF THE ARM,SHOULDER AND HAND SCORE (DASH) 08/23/2020 1. Please select the answers that best describes your physical ability in the past week. Did you have any difficulty: using your usual technique for your work? Mild Difficulty 2. Did you have any difficulty: doing your usual work because of arm, shoulder or hand pain? Mild Difficulty 3. Did you have any difficulty: doing your work as well as you would like? Mild Difficulty 4. Did you have any difficulty: spending your usual amount of time doing your work? Mild Difficulty If you play more than one sport or instrument (or play both), please answer with respect to that activity which is most important to you. Do you currently play a sport or an instrument? Yes 1. Did you have any difficulty: using your usual technique for playing your instrument or sport? Moderate Difficulty 2. Did you have any difficulty: playing your musical instrument or sport because of arm, shoulder or hand pain? Moderate Difficulty 3. Did you have any difficulty: playing your musical instrument or sport as well as you would like?Moderate Difficulty 4. Did you have any difficulty: spending your usual amount of time practising or playing your instrument or sport? Moderate Difficulty Standardized measurement of functional limitation related to an upper extremity disability, using 0-100 scale indicating percent of perceived functional impairment. Pain: (Assessed using the Visual Analog Pain Scale) At Rest: 08/24 With Activity: 09/24 Treatment Today: Orthosis - Rjbio-Uhio-Kogjju Orthotic, Rigid, WO Jts, Custom Fit & Adj ([id number]) Educated patient in etiology and biomechanics as related to patient's symptoms Fabricated forearm based thumb spica orthosis Instructed in orthosis wear and care- to be worn at night Range of Motion Exercises: review wrist and thumb ROM Instructed in thenar strengthening Issued putty for grasp and pinch exercises CLINICAL DECISION MAKING: Rebeca Hernández has a well fitting orthosis post therapy. Rebeca Hernández is able to independently verbalize and demonstrate the recommended home program following instructions today. Rebeca Hernández has good potential for gains with therapy/home program use. Patient knows to call with any questions or concerns. Short Term Goals (to be met by end of the visit today): Date Goal Met: Today 1. Rebeca Hernández will demonstrate independence with donning and doffing of her orthosis and verbalization of purpose. Goal Status: Meets. Today 2. Rebeca Hernández will be independent with home exercises as evident with demonstration in therapy. Goal Status: Meets PLAN: provision of thumb orthosis Proceed with independent home program (X) Rebeca Hernández participated in the evaluation, collaborated on treatment goals, and agrees tothe treatment plan. documented in this encounter Plan of Treatment Upcoming Encounters Date Type Department Care Team (Late st Contact Info) Description 03/27/2024 11:00 AM EDT Office Visit Hematology/Oncology at [address] [phone] El Bernardo MD [facility] [place] [address] [address] HEMATOLOGY [place] [address] 04/21/2024 8:00 AM EST Appointment Mammography/[place] [address] [address] HEMATOLOGY AND ONCOLOGY [place], [place] [address] Scheduled Referrals Name Type Priority Associated Diagnoses Order Schedule Referral to Occupational Therapy Outpatient Referral Routine Pain in right wrist Right hand pain Ordered: 08/23/2020 documented as of this encounter Visit Diagnoses Diagnosis Pain in right wrist Pain in joint, forearm Arthritis of carpometacarpal (CMC) joint of right thumb documented in this encounter Care Teams Solid State Tester Relationship Specialty Start Date End Date Dnea Alfonso APRN [address] [place] [address] PCP - General Geriatric Medicine 10/12/16 documented as of this encounter
--- OUTSIDE RECORDS SUMMARY | 2024-02-27 12:42 | XMS_ITS | Encounter Summary ---
Author Organization [facility] Address [facility] [place] [address] Care Team Providers Care Universal Branch Consultant Name Role Phone Dena Alfonso APRN Primary Care Provider [phone] Reason for Visit * Reason Onset Date Comments Medication Refill 09/04/2022 Encounter Details Date Type Department Care Team ([facility] Contact Info) Description 09/04/2022 Refill Obstetrics [place] [address] Chris Gandhi MD [facility] [place] [address] Vaginal atrophy Social History Tobacco Use Types Packs/Day Years [...] encounter Miscellaneous Notes * Telephone Encounter - Chuck Etienne LPN - 09/04/2022 9:23 AM EDT Rebeca Hernández is a 61 year old woman with a history prolapse and pessary use. She was last seen byKIRILL long in March 2021. She calls today to request a renew on estrace cream. She is next scheduled to see MD Hiram December 2022 for surgical consult. documented in this encounter Plan of Treatment Upcoming Encounters Date Type Department Care Team (Late st Contact Info) Description 03/27/2024 11:00 AM EDT Office Visit Hematology/Oncology at [address] [phone] El Bernardo MD [facility] [place] [address] [address] [place] [address] 04/21/2024 8:00 AM EST Appointment Mammography/[place] [address] Linda Tamayo, [address] HEMATOLOGY AND ONCOLOGY [place], [place] [address] documented as of this encounter Visit Diagnoses Diagnosis Vaginal atrophy Postmenopausal atrophic vaginitis documented in this encounter Care Teams Universal Branch Consultant Relationship Specialty Start Date End Date Dena Alfonso APRN [address] [place] [address] PCP - General Geriatric Medicine 10/12/16 documented as of this encounter
--- OUTSIDE RECORDS SUMMARY | 2024-02-27 12:42 | XMS_ITS | Encounter Summary ---
Author Organization [facility] Address [facility] [place] [address] Care Team Providers Care Allergist/Immunologist Name Role Phone Dena Alfonso APRN Primary Care Provider [phone] Reason for Visit * Reason Comments Follow-up Encounter Details Date Type Department Care Team (Late st Contact Info) Description 01/24/2023 2:30 PM EDT Office Visit Dermatology at [address] [phone] Miles Bowman MD [address] [place] [address], [place] [address] Seborrheic keratosis Social History Tobacco Use Types Packs/Day Years [...] as of this encounter Progress Notes * Miles Bowman MD - 01/24/2023 2:30 PM EDT Problem: 1. Irritant hand dermatitis 2. History of seasonal allergies 3. 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 She is concerned about a lesion by her eye. Got back from a visit to see her daughter in [place] at [address] where her [place]. Physical examination reveals a pleasant 62-year-old woman who has small papules flesh tone consistent with seborrheic keratoses or early acrochordons on the lower tarsal margins 2 on the right and 1 on the left lower eyelid. There is no evidence of any recurrent BCCA on the right infraorbital fold.She is very fair skinned. Assessment plan: Seborrheic keratosis/acrochordons, lower eyelids 1. Patient reassured about benign appearance of these 2. As they are relatively small, I would not recommend any intervention. If they continue to grow, patient may return to clinic and I will be happy to electrodesiccate and remove them with a 15-minute appointment CC: Dena Alfonso APRN documented in this encounter Plan of Treatment Upcoming Encounters Date Type Department Care Team (Late st Contact Info) Description 03/27/2024 11:00 AM EDT Office Visit Hematology/Oncology at [address] [phone] El Bernardo MD [facility] [place] [address] Linda Tamayo [address] HEMATOLOGY [place] [address] 04/21/2024 8:00 AM EST Appointment Mammography/[place] [address] Linda Tamayo [address] HEMATOLOGY [place] [address] documented as of this encounter Visit Diagnoses Diagnosis Seborrheic keratosis Other seborrheic keratosis documented in this encounter Care Teams Allergist/Immunologist Relationship Specialty Start Date End Date Dena Alfonso APRN [address] [place] [address] PCP - General Geriatric Medicine 10/12/16 documented as of this encounter
--- OUTSIDE RECORDS SUMMARY | 2024-02-27 12:42 | XMS_ITS | Encounter Summary ---
Author Organization [facility] Address [facility] [place] [address] Care Team Providers Care Steel Burner Name Role Phone Dena Alfonso APRN Primary Care Provider [phone] Reason for Referral * Diagnostic Test (Routine) - Closed Specialty Diagnoses / Procedures Referred By Mariah tate Referred To Contact Radiology Diagnoses Breast cancer, stage 2, left BRCA1 gene mutation positive Procedures MRI Breast wwo Contrast El Sanabria MD [facility] [place] [address] [place] [address] Referral ID Status Reason Start Date Expiration Date V isits Requested Visits Authorized [id number] Closed Specialty Service Requested 07/22/2020 01/19/2022 1 1 Reason for Visit * Diagnostic Test (Routine) - Closed Specialty Diagnoses / Procedures Referred By Mariah tate Referred To Contact Radiology Diagnoses Breast cancer, stage 2, left BRCA1 gene mutation positive Procedures MRI Breast wwo Contrast El Sanabria MD [facility] [place] [address] [place] [address] Referral ID Status Reason Start Date Expiration Date V isits Requested Visits Authorized [id number] Closed Specialty Service Requested 07/22/2020 01/19/2022 1 1 Encounter Details Date Type Department Care Team (Latest Contact Info) Description 09/07/2020 4:21 PM EDT - 09/07/2020 11:59 PM EDT Hospital Encounter MRI [place] [facility] [place] [address] El Bernardo MD [facility] [place] [address] Breast cancer, stage 2, left; BRCA1 gene mutation positive Discharge Disposition: Home Social History Tobacco Use [...] NEEDED 3 12/12/2017 fluticasone (FLONASE) 50 mcg/actuation [place], Suspension 1 spray by Each Nare route [...] daily, prn 45 g 3 02/10/2018 09/19/2020 metoprolol succinate XL (Toprol-XL) 25 mg Tablet Sustained Release 24 hr Take 1 tablet by mouth daily. 30 tablet 12 07/21/2020 03/29/2021 documented as of this encounter Plan of Treatment Upcoming Encounters Date Type Department Care Team (Late st Contact Info) Description 03/27/2024 11:00 AM EDT Office Visit Hematology/Oncology at [address] [phone] El Bernardo MD [facility] [place] [address] [address] HEMATOLOGY [place] [address] 04/21/2024 8:00 AM EST Appointment Mammography/[place] [address] HEMATOLOGY AND ONCOLOGY [place], [place] [id number] documented as of this encounter Procedures Procedure Name Priority Date/Time Associated Diagnosis Comments MRI BREAST WWO CONTRAST BILAT Routine 09/07/2020 5:30 PM EDT Breast cancer, stage 2, left BRCA1 gene mutation positive documented in this encounter Results * MRI Breast wwo [...] the number below. ? Electronically signed by: Deisy Vasquez MD, [facility] ([phone]), at 09/08/2020 3:52 PM Narrative 09/08/2020 3:52 PM EDT BILATERAL BREAST MRI CLINICAL INDICATION: Breast high risk screening TECHNIQUE: Multiplanar sequences were obtained pre- and post- Dotarem enhancement, to include SPGR weighted dynamic run-off and subtraction sequences obtained after the intravenous administration of 18 ccs of Dotarem. Computer algorithm analysis for lesion detection and kinetic contrast enhancement curve analysis was performed, using Opbeat software. COMPARISON STUDIES: Compared and/or correlated with [...] gene mutation positive documented in this encounter Administered Medications Inactive Administered Medications - up to 3 most recent administrations Medication Order MAR Action Action Date Dose Rate Site gadoterate meglumine (Dotarem) (0.5 mMol/mL) injection solution 0-100 mL 0-100 mL, Intravenous, ONCE PRN, 1 dose, Starting on Sat09/07/20 at 1644, Until Sat09/07/20 at 1715, Per Protocol, Radiology Contrast, Routine Given 09/07/2020 5:15 PM EDT 18 mLs documented in this encounter Care Teams Steel Burner Relationship Specialty Start Date End Date Dena Alfonso, LIZABETH [address] [place] [address] PCP - General Geriatric Medicine 10/12/16 documented as of this encounter
--- OUTSIDE RECORDS SUMMARY | 2024-02-27 12:42 | XMS_ITS | Encounter Summary ---
Author Organization [facility] Address [facility] [place] [address] Care Team Providers Care Group Billing Coordinator Name Role Phone Dena Alfonso APRN Primary Care Provider [phone] Encounter Details Date Type Department Care Team (Latest Contact Info) Description 01/24/2023 Travel Social History Tobacco Use Types Packs/Day [...] 11:00 AM EDT Office Visit Hematology/Oncology at [address] [phone] El Bernardo MD [facility] [place] [address] Linda Tamayo [address] HEMATOLOGY AND ONCOLOGY [place], [place] [address] 04/21/2024 8:00 AM EST Appointment Mammography/[place] [address] Linda Tamayo [address] HEMATOLOGY AND ONCOLOGY [place], [place] [id number] documented as of this encounter Visit Diagnoses Not on filedocumented in this encounter Care Teams Group Billing Coordinator Relationship Specialty Start Date End Date Dena Alfonso APRN [address] [place] [address] PCP - General Geriatric Medicine 10/12/16 documented as of this encounter
--- OUTSIDE RECORDS SUMMARY | 2024-02-27 12:42 | XMS_ITS | Encounter Summary ---
Author Organization [facility] Address [facility] [place] [address] Care Team Providers Care Welder/Installer Name Role Phone Dena Alfonso APRN Primary Care Provider [phone] Encounter Details Date Type Department Care Team (Latest Contact Info) Description 09/12/2022 Travel Social History Tobacco Use Types Packs/Day [...] 11:00 AM EDT Office Visit Hematology/Oncology at [address] [phone] El eBrnardo MD [facility] [place] [address] Linda Tamayo [address] HEMATOLOGY AND ONCOLOGY [place], [place] [address] 04/21/2024 8:00 AM EST Appointment Mammography/[place] [address] Linda Tamayo [address] HEMATOLOGY AND ONCOLOGY [place], [place] [id number] documented as of this encounter Visit Diagnoses Not on filedocumented in this encounter Care Teams Welder/Installer Relationship Specialty Start Date End Date Dena Alfonso APRN [address] [place] [address] PCP - General Geriatric Medicine 10/12/16 documented as of this encounter
--- OUTSIDE RECORDS SUMMARY | 2024-02-27 12:42 | XMS_ITS | Encounter Summary ---
Author Organization [facility] [place] [place] [address] Care Team Providers Care Garbage Collector Supervisor Name Role Phone Dena Alfonso APRN Primary Care Provider [phone] Reason for Visit * Reason Onset Date Comments Leg Pain 12/05/2021 Ongoing leg pain 6+ months. Need FUV with Dr. Bernardo. Encounter Details Date Type Department Care Team (Late st Contact Info) Description 12/05/2021 Telephone Hematology/Oncology at [address] [phone] Hanh Callaway RN Leg Pain (Ongoing leg pain 6+ months. Need FUV with Dr. Bernardo.) Social History Tobacco Use Types Packs/Day Years [...] encounter Miscellaneous Notes * Telephone Encounter - Hanh Callaway RN - 12/05/2021 3:[address] Bernardo thought a bone scan is a reasonable thing to check. Since Rebeca has not been in to see Dr. Bernardo and is due for a Mammo and MRI. The plan will be todo the bone scan in [facility], Mammo and MRI in [place], new labs locally (CBC, CMP and B12) and then have a FUV with Dr. Bernardo. Rebeca is agreeable with this plan. Asked that if possible apts for mammo and MRI be coordinated with apt she [place] down [place] 7[place]7. ----- Message ----- From: Hanh Callaway RN Sent: 12/05/2021 2:18 PM EDT To: El Bernardo MD Subject: FW: Leg Pain Hx of Breast cancer/ BRCA 1 finished AC and radiation 11/2005 Dr. Bernardo telehealth visit was 09/30/20 Mammo (07/14/20), MRI (09/07/20). 04/06 visit was cancelled- no follow up arranged after that Work up on leg pain by PCP 07/18/21 visit and x rays- no abnormalities in bone or soft tissue. They were thinking it was muscular. PT 07/21/21 wanted to see her weekly but there are no more notes she had labs 07/31/21 cbc, calcium, LFTs all normal. Would you do a bone scan or have any other thoughts? And she probably needs a new mammogram or breast MRI? ----- Message ----- From: Jnaice Diaz Sent: 12/05/2021 12:41 PM EDT To: [facility] Hem Onc Nurse Subject: Leg Pain Rebeca has had leg pain for 6 months and they cant seem to figure out what it is her and her PCP. She is wondering if we can help as she thinks it might be her cancer metastasized to her legs. She stated it gets worse at night. Can we call her back at [phone]. Thanks Almaz~ documented in this encounter Plan of Treatment Upcoming Encounters Date Type Department Care Team (Late st Contact Info) Description 03/27/2024 11:00 AM EDT Office Visit Hematology/Oncology at [address] [phone] El Bernardo MD [facility] DR ONCOLOGY [facility] [place] [address] Linda Tamayo APRN [address] [place] [address] DR HEMATOLOGY AND ONCOLOGY [place], [place] [id number] 04/21/2024 8:00 AM EST Appointment Mammography/[place] [phone] Linda Tamayo APRN [address] [place] [address] DR HEMATOLOGY AND ONCOLOGY [place], [place] [address] documented as of this encounter Visit Diagnoses Not on filedocumented in this encounter Care Teams Garbage Collector Supervisor Relationship Specialty Start Date End Date Dena Alfonso APRN [address] [place] [address] PCP - General Geriatric Medicine 10/12/16 documented as of this encounter
--- OUTSIDE RECORDS SUMMARY | 2024-02-27 12:42 | XMS_ITS | Encounter Summary ---
Author Organization [facility] Address [facility] [place] [address] Care Team Providers Care Bag Shaker Name Role Phone Dena Alfonso LIZABETH Primary Care Provider Encounter Details Date Type Department Care Team (Late st Contact Info) Description 03/29/2021 Orders Only Obstetrics [place] [address] Kenyetta Elizabeth RN Vaginal atrophy Social History Tobacco Use Types [...] AM EDT Office Visit Hematology/Oncology at [address] [phone] El Bernardo MD [facility] [address] Linda Tamayo MANAGER SOCIAL MEDIA [address] [place] [address] DR HEMATOLOGY AND ONCOLOGY [place], [place] [address] 04/21/2024 8:00 AM EST Appointment Mammography/[place] [phone] Linda Tamayo APRN [address] [place] [address] DR HEMATOLOGY AND ONCOLOGY [place], [place] [id number] documented as of this encounter Visit Diagnoses Diagnosis Vaginal atrophy Postmenopausal atrophic vaginitis documented in this encounter Care Teams Bag Shaker Relationship Specialty Start Date End Date Dena Alfonso APRN [address] [place], [place] [id number] PCP - General Geriatric Medicine 10/12/16 documented as of this encounter
--- OUTSIDE RECORDS SUMMARY | 2024-02-27 12:42 | XMS_ITS | Encounter Summary ---
Author Organization [facility] Address [facility] [place] [address] Care Team Providers Care Quality Improvement Consultant Name Role Phone Dena Alfonso APRN Primary Care Provider [phone] Encounter Details Date Type Department Care Team (Latest Contact Info) Description 03/29/2023 Travel Social History Tobacco Use Types Packs/Day [...] AM EDT Office Visit Hematology/Oncology at [address] [phone] El Bernardo MD [facility] [place] [address] Linda Tamayo [address] HEMATOLOGY AND ONCOLOGY [place], [place] [address] 04/21/2024 8:00 AM EST Appointment Mammography/[place] [address] Linda Tamayo [address] HEMATOLOGY AND ONCOLOGY [place], [place] [id number] documented as of this encounter Visit Diagnoses Not on filedocumented in this encounter Care Teams Quality Improvement Consultant Relationship Specialty Start Date End Date Dena Alfonso APRN [address] [place] [address] PCP - General Geriatric Medicine 10/12/16 documented as of this encounter
--- OUTSIDE RECORDS SUMMARY | 2024-02-27 12:42 | XMS_ITS | Encounter Summary ---
Author Organization [facility] Address [facility] [place] [address] Care Team Providers Care Food Dehydrator Operator Name Role Phone Dena Alfonso LIZABETH Primary Care Provider [phone] Reason for Visit * Reason Comments Medication Refill Encounter Details Date Type Department Care Team ([facility] Contact Info) Description 01/08/2021 Refill Cardiology at [address] [phone] Lester Parada MD [facility] [place] [address] Medication Refill Social History Tobacco Use Types Packs/Day Years [...] 11:00 AM EDT Office Visit Hematology/Oncology at [address] [phone] El Bernardo MD [facility] [address] Linda Tamayo APRN [address] [place] [address] [place] [address] 04/21/2024 8:00 AM EST Appointment Mammography/[place] [address] Linda Tamayo APRN [address] [place] [address] DR HEMATOLOGY AND ONCOLOGY [place], [place] [id number] documented as of this encounter Visit Diagnoses Diagnosis Ischemic cardiomyopathy Other specified forms of chronic ischemic heart disease documented in this encounter Care Teams Food Dehydrator Operator Relationship Specialty Start Date End Date Dena Alfonso APRN [address] [facility] [place] [address] PCP - General Geriatric Medicine 10/12/16 documented as of this encounter
--- OUTSIDE RECORDS SUMMARY | 2024-02-27 12:42 | XMS_ITS | Encounter Summary ---
Author Organization [facility] Address [facility] [place] [address] Care Team Providers Care Substance Abuse Prevention Coordinator Name Role Phone KyDena cornell RETAIL PRODUCT DEMO SPECIALIST Primary Care Provider [phone] Reason for Visit * Reason Comments Aneurysm (Aortic) * Consultation (Routine) - Closed Specialty Diagnoses / Procedures Referred By Mariah t Referred To Contact Cardiology Diagnoses Thoracic aortic ectasia Personal history of other diseases of the circulatory system Shortness of breath Dena Alfonso APRN [address] [place] [address] Lester Parada MD [facility] [place] [address] Referral ID Status Reason Start Date Expiration Date V isits Requested Visits Authorized [id number] Closed Consult, Test & Treat Connection Center PCP Updated and/or Approved 07/20/2020 07/20/2021 6 6 Encounter Details Date Type Department Care Team (Late st Contact Info) Description 09/19/2020 3:20 PM EDT Office Visit Cardiology at [address] [place] [address] Lester Parada MD [facility] [place] [address] Thoracic aortic aneurysm without rupture Social History Tobacco Use Types Packs/Day Years [...] Sign Reading Time Taken Comments Blood Pressure 116/78 09/19/2020 3:24 PM EDT Pulse 102 09/19/2020 3:24 PM EDT Temperature - - Respiratory Rate - - Oxygen Saturation - - Inhaled Oxygen Concentration - - Weight 85.7 kg (189 lb) 09/19/2020 3:15 PM EDT Height 165.1 cm (5' 5) 09/19/2020 3:15 PM EDT Body Mass Index 31.45 09/19/2020 3:15 PM EDT documented in this encounter Progress Notes * Lester Parada MD - 09/19/2020 3:20 PM EDT Images from the original note were not included. Subjective: Patient ID: Rebeca Hernández is a 59 y.o. female who presents on follow-up for: Chief Complaint Patient presents with ??? Aneurysm (Aortic) HPI Last seen by Dr Govea at [facility] 07/2020, at which time a follow-up TTE was ordered for the aortic root, which had grown from 38 mm in 2018 to then 46 mm.. Since then, she has been rather nervous regarding the size change of the aortic root (as delineatedin the problem list below). Initial plan was to get a repeat TTE in the summer. Otherwise, she is without significant untoward exertional symptoms. Has known nyha ii dyspnea. No angina. Minimal palpitations bp well controlled at home Non-smoker Current Outpatient Medications: ??? Berb Moreira/herbal complex no.18 (BERBERINE-HERBAL COMB NO.18 ORAL), Take 500 mg by mouth 3 times daily. For antihyperglycemic effects, Disp: , Rfl: ??? augmented betamethasone dipropionate (DIPROLENE-AF) 0.05 % Ointment, apply on a twice daily basis as needed for her hand eczema, Disp: 45 g, Rfl: 3 ??? ONETOUCH VERIO Strip, USE TO TEST DAILY. GOAL A1C IS LESS THAN 7, Disp: , Rfl: 3 ??? ONETOUCH VERIO IQ METER [facility] [place], USE TO TEST DAILY. GOAL A1C LESS THAN 7, Disp: , Rfl: 0 ??? ONE TOUCH DELICA 33 gauge Misc, USE TO TEST DAILY. GOAL A1C IS LESS THAN 7, Disp: , Rfl: 3 ??? meloxicam (MOBIC) 15 mg Tablet, TAKE ONE TABLET BY MOUTH EVERY DAY NEEDED FOR PAIN, Disp: , Rfl: 0 ??? valACYclovir (VALTREX) 500 mg Tablet, Take 1 tablet by mouth 2 times daily., Disp: 6 tablet, Rfl: 0 ??? Cholecalciferol, Vitamin D3, (VITAMIN D-3) 2,000 unit Capsule, Take by mouth., Disp: , Rfl: ??? EPINEPHrine (EPIPEN) 0.3 mg/0.3 mL (1:1,000) Auto-Injector, Inject 0.3 mLs into the muscle onceas needed (difficulty breathing, throat swelling, loss of consciousness) for up to 1 dose. Call 911., Disp: 2 each, Rfl: 1 ??? lisinopriL (Prinivil;Zestril) 5 mg Tablet, Take 1 tablet by mouth daily., Disp: 30 tablet, Rfl:0 ??? metoprolol succinate XL (Toprol-XL) 25 mg Tablet Sustained Release 24 hr, Take 1 tablet by mouth daily. (Patient not taking: Reported on 09/19/2020), Disp: 30 tablet, Rfl: 12 ??? olopatadine (PATADAY) 0.2 % Drops, INSTILL 1 DROP INTO AFFECTED EYE S ONCE DAILY NEEDED, Disp: , Rfl: 3 ??? fluticasone (FLONASE) 50 mcg/actuation [place], Suspension, 1 spray by Each Nare route daily as needed., Disp: , Rfl: ??? cetirizine (ZYRTEC) 10 mg Tablet, Take 10 mg by mouth daily as needed for Allergies. Reported on 10/12/2016, Disp: , Rfl: Patient Active Problem List Diagnosis ??? Aortic aneurysm without rupture 06/2020: Root 46 mm, Ascending 38 mm 12/2017: Root 36 mm, Ascending 32 mm ??? Osteopenia ??? Scoliosis ??? Vaginal prolapse ??? Diabetes mellitus type 2, diet-controlled ??? BRCA1 positive ??? Breast cancer A. S/P partial L mastectomy 2004 B. Treated with cytoxan and doxorubicin and radiation therapy. C. BRAC1 pos- bilat oophorectomy in 04/2013 prophylactically ??? Depression ??? Chest pain A. Stress test [facility] 06/28: exercised to 10.1 METs and 152 bpm. Neck pain at 6 mins. No EKG changes. ??? Cardiomyopathy A. Echo 2011: LVEF 45% with global HK. B. Cardiac cath 08/15/11: Nl coronary arteries. LVEF 55%. LVEDP 13. C. H/O breast cancer. Treated with 6 cycles doxorubicin (total 360 mg/m2) and cyclophosphamide - complete in 2005. Pretreatment MUGA 2004 - nl LV function. ??? GERD (gastroesophageal reflux disease) ??? Palpitations ??? History of left knee surgery Left Objective: BP 116/78 (BP Location (NBP): Right arm, Patient Position: Standing, BP Cuff Sizes: Adult (25-34 cm)) Pulse (!) 102 Ht 165.1 cm (5' 5) Wt 85.7 kg (189 lb) BMI 31.45 kg/m?? Gen: pleasant female in NAD Cor: rrr, s1/s2 of nl character and amplitude, no m/r/g. Estimated RAP not elevated. Carotids with normal upstroke without bruit. Pulm: CTAB. Normal diaphragmatic movement without use of accessory muscles EKG: nsr, nl ekg TTE 06/2020 1. There is moderate dilatation of the aortic root (4.6 cm). There is mild dilatation of the ascending aorta (3.8 cm). The aortic valve is tricuspid, and there is no aortic regurgitation. Compared to a prior study dated 01/10/18, aortic dimensions are significantly larger. 2. The left ventricular chamber size and global systolic function are normal. The quantitative left ventricular ejection fraction by 3D rendering is 66%. There are no left ventricular segmental wall motion abnormalities. 3. Right ventricular chamber size and systolic function are within normal limits. The estimated pulmonary artery systolic pressure is 25 mmHg. 4. There is no valve disease. Assessment and Plan: Aortic aneurysm without rupture Patient asked many good questions regarding the aortopathy. I relayed that I though the increase insize from 2018, in the absence of uncontrolled HTN, kidney disease, or smoking, was rather odd and likely represented measuring error. The next step thusly is to confirm/refute with CT of the aorta RTC pending CTA Lester Parada MD Between 30 and 39 minutes were spent doing patient care, chart care/review (today), and care coordination. documented in this encounter Miscellaneous Notes * Assessment & Plan Note - Lester Parada MD - 09/26/2020 8:33 AM EDT Associated Problem(s): Aortic aneurysm without rupture Patient asked many good questions regarding the aortopathy. I relayed that I though the increase insize from 2018, in the absence of uncontrolled HTN, kidney disease, or smoking, was rather odd and likely represented measuring error. The next step thusly is to confirm/refute with CT of the aorta documented in this encounter Plan of Treatment Upcoming Encounters Date Type Department Care Team (Late st Contact Info) Description 03/27/2024 11:00 AM EDT Office Visit Hematology/Oncology at [address] [phone] El Bernardo MD [facility] [place] [address] [address] HEMATOLOGY [place] [address] 04/21/2024 8:00 AM EST Appointment Mammography/[place] [address] Linda Tamayo [address] HEMATOLOGY AND ONCOLOGY [place], [place] [address] documented as of this encounter Visit Diagnoses Diagnosis Thoracic aortic aneurysm without rupture Thoracic aneurysm without mention of rupture documented in this encounter Care Teams Substance Abuse Prevention Coordinator Relationship Specialty Start Date End Date Dena Alfonso APRN [address] [place] [address] PCP - General Geriatric Medicine 10/12/16 documented as of this encounter
--- OUTSIDE RECORDS SUMMARY | 2024-02-27 12:42 | XMS_ITS | Encounter Summary ---
Author Organization [facility] Address [facility] [place] [address] Care Team Providers Care Coal Tower Operator Name Role Phone Dena Alfonso APRN Primary Care Provider [phone] Encounter Details Date Type Department Care Team (Late st Contact Info) Description 01/19/2022 1:00 PM EDT Office Visit Hematology/Oncology at [address] [phone] El Bernardo MD [facility] [place] [address] History of left breast cancer Social History Tobacco Use Types Packs/Day Years [...] Sign Reading Time Taken Comments Blood Pressure 129/81 01/19/2022 12:59 PM EDT Pulse 73 01/19/2022 12:59 PM EDT Temperature 36.9 ??C (98.4 ??F) 01/19/2022 12:59 PM E DT Respiratory Rate 18 01/19/2022 12:59 PM EDT Oxygen Saturation 98% 01/19/2022 12:59 PM EDT Inhaled Oxygen Concentration - - Weight 83.7 kg (184 lb 9.6 oz) 01/19/2022 12:59 PM EDT Height 162.6 cm (5' 4.02) 01/19/2022 12:59 PM E DT Body Mass Index 31.67 01/19/2022 12:59 PM EDT documented in this encounter Progress Notes * El Bernardo MD - 01/19/2022 1:00 PM EDT Subjective: Patient ID: Rebeca Hernández is 61 y.o. Problem List: 1. 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 A. Pt-discovered mass in her L breast (UO quadrant) led to mammogram in 01/17 which was negative and nothing further was done apparently. Subsequent increase in [...] with heterologous chondroid differentiation Tumor Grade: High Cjtxni-Dnkfh-Tfdrdogovi Score: 9 Tubular Differentiation: 3 Mitotic Rate: [...] carcinoma: 4 Estrogen/Progestin receptors: ER immunoreactivity: Negative MN immunoreactivity: Negative HER2/yeyo expression by FISH: NEGATIVE FOR HER2/YEYO AMPLIFICATION H. s/p adjuvant chemotherapy (AC). Completed 6 cycles 07/25/05. I. Adjuvant radiation therapy, completed 12/07/05. J.Bone scan 01/05/22 - Impression: No evidence of metastatic disease. No abnormal activity in the legs. Increased activity in the lumbar spine corresponds to severe degenerative changes at L2-3. K. Bilateral mammogram 07/14/20 -FINDINGS: Breast density: There are scattered areas of fibroglandular density. ?? There are no suspicious microcalcifications, masses, or areas of distortion. There are post treatment changes in the left breast. ?? CONCLUSION: No mammographic evidence of malignancy. ?? RECOMMENDATION: Routine screening. ?? BIRADS CATEGORY 2: BENIGN FINDINGS Breast MRI 09/07/20 - ??IMPRESSION Stable post treatment changes in the left breast. No suspicious findings are identified within either breast. ?? RECOMMENDATION:Continue high risk screening breast MRI ?? LEFT BREAST BIRADS BI-RADS Category 2: Benign Findings RIGHT BREAST BIRADS BI-RADS Category 1: Negative Bilateral mammogram 01/18/22 - FINDINGS: Breast density: There are scattered areas of fibroglandular density ?? There are no suspicious microcalcifications, masses, or areas of distortion. There are post treatment changes in the left breast. ?? CONCLUSION: No mammographic evidence of malignancy. ?? RECOMMENDATION: Routine annual screening. ?? BI-RADS CATEGORY 2: BENIGN FINDINGS 2. BRCA 1 mutation Family hx: One [...] same BRCA1 alteration found in her mother ([id number]). Prophylactic BSO 04/2013. Path - Right and left fallopian tubes and ovaries (bilateral salpingo-oophorectomy): No evidence of malignancy. 3. SOFTWARE DEVELOPER INTERN History: The patient is G4, P3 with [...] 60% with no regional wall motion abnormalities. 5. DM, diet controlled HPI Ms. Hernández is seen in f/u [...] path did not show evidence of malignancy. Rebeca is by herself in clinic today. She has been having a lot of problems with bilateral leg pain. It is in the lower legs, anteriorly. It bothers her more at night when she lays down. She describes it as a sharp pain and feels like hastings splints. She takes tylenol and puts topical CBD on it. This may helps her seep. Her mother 2 months ago. She apparently had cancer in her pancreas and liver. She has been working with her PCP and she has had plain films which was apparently unrevealing.She went to PT and that did not help. She has been having problems with her back and as a result did not have the MRI. Her back pain comes and goes but it is not new. She does not feel like the pain in her legs comes from her back. She does BSE at times but it is difficult for her to evaluate. Review of Systems Constitutional: Negative for activity change, appetite change, chills, fever and unexpected weight change. Eyes: Negative. Respiratory: Negative. Cardiovascular: Negative. Gastrointestinal: Negative. Genitourinary: Negative. Musculoskeletal: Positive for back pain. Bilateral LE pain Skin: Negative. Neurological: Negative. Psychiatric/Behavioral: Negative. Objective: Physical Exam Vitals reviewed. Constitutional: General: She is not in acute distress. HENT: Head: Normocephalic and atraumatic. Mouth/Throat: Pharynx: Oropharynx is clear. No oropharyngeal exudate. Eyes: General: No scleral icterus. Cardiovascular: Rate and Rhythm: Normal rate and regular rhythm. Pulmonary: Effort: Pulmonary effort is normal. No respiratory distress. Breath sounds: No wheezing or rales. Chest: Breasts: Right: No axillary adenopathy or supraclavicular adenopathy. Left: No axillary adenopathy or supraclavicular adenopathy. Abdominal: General: There is no distension. Tenderness: There is no abdominal tenderness. There is no guarding. Genitourinary: Comments: Breast exam: No skin dimpling or puckering and not masses note in either breast. Nipples everted. Musculoskeletal: General: No swelling. Lymphadenopathy: Cervical: No cervical adenopathy. Upper Body: Right upper body: No supraclavicular or axillary adenopathy. Left upper body: No supraclavicular or axillary adenopathy. Skin: General: Skin is warm and dry. Findings: No rash. Neurological: General: No focal deficit present. Mental Status: She is alert. Cranial Nerves: No cranial nerve deficit. Motor: No weakness. Psychiatric: Mood and Affect: Mood normal. Labs: SUPERVISOR ELECTROLYTIC TINNING Assessment and Plan: Rebeca Hernández is 61 yo and seen in f/u of left breast cancer in the setting of BRCA 1 positivity. Dx'd in 2004. 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 It was hormone receptor and her-2/yeyo negative. She received adjuvant chemotherapy with AC and radiation and completed all therapy in 11/20. She is s/p prophylactic oophorectomy. Clinically, she is doing well. The mammogram done 01/18/22 is negative. She did not have the breast MRI done due to the back issues. The most recent breast MRI was done on 09/07/20 and was negative. We have discussed prophylactic mastectomy and she has not been interested in that. A bone scan was done on 01/05/22 due to bilateral LE pain. This is in the lower legs. The bone scan does not show evidence of metastatic disease. There is increased activity in the L-spine which corresponds to degenerative disease. She does not feel as though it is a radicular pain. We have talked about testing for her daughter(lives in [place]) who plans to check into that. Cost is a concern to them but I would think that it should be covered and the genetic counselor can look into that for her. Her sister was tested and was negative. I believe she said that her brother was testedand is positive. She is also worried because her mother recently of pancreatic cancer. Given this family history and the genetic abnormality, I have sent a message to Dr. Fletcher and Dr. Talley to see if they would consider an upper EUS. I will let her know when I hear from one of them. We will see her in 6 months for a breast exam. documented in this encounter Plan of Treatment Upcoming Encounters Date Type Department Care Team (Late st Contact Info) Description 03/27/2024 11:00 AM EDT Office Visit Hematology/Oncology at [address] [phone] El Bernardo MD [facility] [place] [address] [address] HEMATOLOGY AND ONCOLOGY [place], [place] [address] 04/21/2024 8:00 AM EST Appointment Mammography/[place] [address] [address] HEMATOLOGY AND ONCOLOGY [place], [place] [address] documented as of this encounter Visit Diagnoses Diagnosis History of left breast cancer documented in this encounter Care Teams Coal Tower Operator Relationship Specialty Start Date End Date Dena Alfonso APRN [address] [place], [place] [id number] PCP - General Geriatric Medicine 10/12/16 documented as of this encounter
--- OUTSIDE RECORDS SUMMARY | 2024-02-27 12:42 | XMS_ITS | Encounter Summary ---
Author Organization [facility] Address [facility] [place] [address] Care Team Providers Care Vendor Management Associate Name Role Phone Dena Alfonso APRN Primary Care Provider [phone] Encounter Details Date Type Department Care Team (Latest Contact Info) Description 09/30/2020 8:00 AM EDT TH Visit (TeleHealth) Hematology/Oncology at [address] [phone] El Bernardo MD [facility] [place] [address] History of left breast cancer Social History [...] Progress Notes * El Bernardo MD - 09/30/2020 8:00 AM EDT Subjective: Patient ID: Rebeca Hernández is a [...] with heterologous chondroid differentiation Tumor Grade: High Qepfyf-Hxnua-Kgiueaounb Score: 9 Tubular Differentiation: 3 Mitotic Rate: [...] carcinoma: 4 Estrogen/Progestin receptors: ER immunoreactivity: Negative IA immunoreactivity: Negative HER2/yeyo expression by FISH: NEGATIVE [...] RIGHT BREAST BIRADS BI-RADS Category 1: Negative 2. BRCA 1 mutation Family hx: One [...] same BRCA1 alteration found in her mother ([id number]). Prophylactic BSO 04/2013. Path - Right and left fallopian tubes and ovaries (bilateral salpingo-oophorectomy): No evidence of malignancy. 3. REHAB CONSULTANT History: The patient is G4, P3 with [...] evidence of malignancy. This is a telephone encounter to f/u on the result of the breast MRI done on 09/07/20. She is feeling well overall with no particular complaints. She does BSE at times but it is difficult for her to evaluate. She has had her second vaccine shot over a month ago. Review of Systems Constitutional: Positive for fatigue. Negative for activity change, appetite change, chills, fever and unexpected weight change. Eyes: Negative. Respiratory: Negative. Cardiovascular: Negative. Gastrointestinal: Negative. Genitourinary: Negative. Musculoskeletal: Positive for back pain. Skin: Negative. Neurological: Negative. Psychiatric/Behavioral: Negative. Objective: Physical Exam Abdominal: There is no hepatosplenomegaly. Genitourinary: Genitourinary Comments: Breast exam: Not done, telephone encounter Neurological: She is alert. Labs (03/30/20): WBC/ANC - 4.. Hgb/Hct -12.9/39.8, Plts - 289,000. BUN/Cr - 17/0.9. Lytes and LFTs unremarkable. Assessment and Plan: Rebeca Hernández is 59 yo and seen in [...] well. The mammogram done 07/14/20 is negative. The breast MRI done on 09/07/20 was negative also. We have discussed prophylactic mastectomy and she has not been interested in that. We talked at the last visit about testing for her daughter who is [...] in three months. She was also having palpitations. She was started on metoprolol and is being evaluated further. We will see her in 6 months. The last couple of visits have been telephone encounters due to concern about Covid. I hope to do the next visit in person so that we can do a breast exam. We will plan to repeat the mammogram and MRI in a year. Per patient preference, I provided care to the patient today via telephone call. The total time associated with this visit was 20 minutes. documented in this encounter Plan of Treatment Upcoming Encounters Date Type Department Care Team (Late st Contact Info) Description 03/27/2024 11:00 AM EDT Office Visit Hematology/Oncology at [address] [phone] El Bernardo MD [facility] [place] [address] [address] [place] [address] 04/21/2024 8:00 AM EST Appointment Mammography[place] [address] Linda Tamayo [address] HEMATOLOGY AND ONCOLOGY [place], [place] [phone] documented as of this encounter Visit Diagnoses Diagnosis History of left breast cancer documented in this encounter Care Teams Vendor Management Associate Relationship Specialty Start Date End Date Dena Alfonso APRN [address] [place] [address] PCP - General Geriatric Medicine 10/12/16 documented as of this encounter
--- OUTSIDE RECORDS SUMMARY | 2024-02-27 12:42 | XMS_ITS | Encounter Summary ---
Author Organization Formerly [facility] Address [facility] [place] [address] Care Team Providers Care Pipe Washer Name Role Phone Dena Alfonso APRN Primary Care Provider Encounter Details Date Type Department Care Team (Late Contact Info) Description 12/05/2021 Orders Only Hematology [place] [address] El Bernardo MD [facility] [place] [address] History of left breast cancer; BRCA1 positive; Lower extremity pain, left; Lack of energy; Breast cancer screening by mammogram Social History Tobacco Use Types Packs/Day Years [...] 11:00 AM EDT Office Visit Hematology/Oncology at [address] [phone] El Bernardo MD [facility] [place] [place] [address] Linda Tamayo APRN [address] [place] [address] DR HEMATOLOGY AND ONCOLOGY [place], [place] [id number] 04/21/2024 8:00 AM EST Appointment Mammography/[place] [address] Linda Tamayo APRN [address] [place] [address] DR HEMATOLOGY [place] [address] documented as of this encounter Results * Mammo Screening Cad and Jean Bilateral (01/18/2022 3:14 PM EDT) Anatomical Region Laterality Modality Breast Bilateral Mammography Narrative 01/19/2022 8:42 AM EDT EXAMINATION: MAMMO SCREENING CAD AND JEAN BILATERAL CLINICAL HISTORY: h/o left breast cancer s/p lumpectomy and radiation. ??Annual mammogram TECHNIQUE: CC and MLO views were obtained of both breasts. Computer aided detection was used. 3D tomosynthesis images were obtained in addition to 2D images. COMPARISON: The study is compared with prior images. FINDINGS: Breast density: There are scattered areas of fibroglandular density There are no suspicious microcalcifications, masses, or areas of distortion. There are post treatment changes in the left breast. CONCLUSION: No mammographic evidence of malignancy. RECOMMENDATION: Routine annual screening. BI-RADS CATEGORY 2: BENIGN FINDINGS * ??Regular screening [...] Patients and health care providers should discuss the history of each patient to decide if earlier screening and/or breast [...] who have questions please contact the health women's health care nurse practitioner that requested your imaging first. ? Electronically signed by: Sue Brock MD, 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
--- OUTSIDE RECORDS SUMMARY | 2024-02-27 12:42 | XMS_ITS | Encounter Summary ---
Author Organization [facility] Address [facility] [place] [address] Care Team Providers Care Online Advertising Analyst Name Role Phone MonsterDena Dobson ACCOUNT ASSISTANT Primary Care Provider [phone] Encounter Details Date Type Department Care Team (Latest Contact Info) Description 10/16/2023 8:54 AM EDT - 10/16/2023 11:59 PM EDT Hospital Encounter Mammography at [facility] [place], [facility] [place] [address] Dena Alfonso APRN [address] [place] [address] Mass of right breast, unspecified quadrant; Genetic susceptibility to malignant neoplasm of breast; Genetic susceptibility to other malignant neoplasm; Personal history of malignant neoplasm of breast Discharge Disposition: Home [...] NEEDED 3 12/12/2017 fluticasone (FLONASE) 50 mcg/actuation [place], Suspension 1 spray by Each Nare route daily as needed. cetirizine (ZYRTEC) 10 mg Tablet Take 10 mg by mouth daily as needed for Allergies. Reported on 10/12/2016 documented as of this encounter Plan of Treatment Upcoming Encounters Date Type Department Care Team (Late st Contact Info) Description 03/27/2024 11:00 AM EDT Office Visit Hematology/Oncology at [address] [phone] El Bernardo MD [facility] [place] [address] [address] HEMATOLOGY AND ONCOLOGY [place], [place] [id number] 04/21/2024 8:00 AM EST Appointment Mammography/[place] [address] HEMATOLOGY AND ONCOLOGY [place], [place] [id number] documented as of this encounter Procedures Procedure Name Priority Date/Time Associated Diagnosis Comments MAMMO BREAST US LIMITED RIGHT Routine 10/16/2023 10:14 AM EDT Mass of right breast, unspecified quadrant Genetic susceptibility to malignant neoplasm of breast Genetic susceptibility to other malignant neoplasm Personal history of malignant neoplasm of breast documented in this encounter Results * US Breast Limited Right (10/16/2023 10:14 AM EDT) WORKSTATION ID [id number] RAD Anatomical Region Laterality Modality Breast Right Mammography Impressions 10/16/2023 11:17 AM EDT No mammographic or sonographic evidence of malignancy. MANAGEMENT: Return to routine screening. FINAL ASSESSMENT: BI-RADS Category 1: Negative I have personally reviewed the image(s) and the resident's interpretation and agree with the findings, Britt Armstrong MD at 10/16/2023 11:17 AM Thank you for letting us participate in the care of this patient. ??If you are a health care provider and have any questions regarding this report, please contact the number below. ??For patients who have questions please contact the health child care specialist that requested your imaging first. ? Narrative 10/16/2023 11:17 AM EDT EXAMINATION: MAMMO DIAGNOSTIC CAD AND JEAN RIGHT, US BREAST LIMITED RIGHT CLINICAL HISTORY: NEW BREAST MASS 2 [place] RIGHT BREAST; HISTORY OF BREAST CANCER; BRCA1 GENE MUTATION POSITIVE TECHNIQUE AND VIEWS OBTAINED: CC and MLO views were obtained of the RIGHT breast. 2D and 3D tomosynthesis images were obtained. Right spot compression tangential view also obtained. Targeted ultrasound of the area concerned was obtained. COMPARISON: Prior images including recent screening mammogram 02/22/2023 BREAST DENSITY: There are scattered areas of fibroglandular density. FINDINGS: No mass or suspicious microcalcifications seen on mammography. Targeted ultrasound of the area of concern demonstrates no sonographic abnormality. By palpation today this this appeared to be a fatty lobule Dena Alfonso APRN IMG MAMMO ORDERABLE S documented in this encounter Visit Diagnoses Diagnosis Mass of right breast, unspecified quadrant Genetic susceptibility to malignant neoplasm of breast Genetic susceptibility to other malignant neoplasm Personal history of malignant neoplasm of breast documented in this encounter Care Teams Online Advertising Analyst Relationship Specialty Start Date End Date Dena Alfonso APRN [address] [place] [address] PCP - General Geriatric Medicine 10/12/16 documented as of this encounter
--- OUTSIDE RECORDS SUMMARY | 2024-02-27 12:42 | XMS_ITS | Encounter Summary ---
Author Organization Formerly [facility] Address [facility] [place] [address] Care Team Providers Care Bologna Lacer Name Role Phone Dena Alfonso APRN Primary Care Provider [phone] Encounter Details Date Type Department Care Team (Late st Contact Info) Description 07/19/2020 Orders Only Cardiology at [address] [place] [address] Jose Govea MD [facility] [place] [address] Other cardiomyopathy; Chest pain, unspecified type; Dilatation of aorta Social History Tobacco Use Types [...] as of this encounter Progress Notes * Marian Caballero RN - 07/19/2020 9:27 AM EST As per Dr. Govea: Please let her know heart function remains stable. ??Her ascending aorta is dilated, which we will need to keep an eye on. She will need a follow up echo in six months to recheck. ??Be sure she has follow up with me scheduled. ??Thanks, ew Spoke with Rebeca- she would like a copy of this message sent from Dr. Govea. She is also interested in speaking with dietary to review heart healthy diet. Agrees to repeat echo and md follow up in 6 months. documented in this encounter Plan of Treatment Upcoming Encounters Date Type Department Care Team (Late st Contact Info) Description 03/27/2024 11:00 AM EDT Office Visit Hematology/Oncology at [address] [phone] El Bernardo MD [facility] [place] [address] [address] [place] [address] 04/21/2024 8:00 AM EST Appointment Mammography/[place] [address] HEMATOLOGY AND ONCOLOGY [place], [place] [address] documented as of this encounter Visit Diagnoses Diagnosis Other cardiomyopathy Chest pain, unspecified type Dilatation of aorta Aortic ectasia, unspecified site documented in this encounter Care Teams Bologna Lacer Relationship Specialty Start Date End Date Dena Alfonso APRN [address] [place] [address] PCP - General Geriatric Medicine 10/12/16 documented as of this encounter
--- OUTSIDE RECORDS SUMMARY | 2024-02-27 12:42 | XMS_ITS | Encounter Summary ---
Author Organization [facility] [place] [address] Care Team Providers Care Forwarder Operator Name Role Phone Dena Alfonso LIZABETH Primary Care Provider Encounter Details Date Type Department Care Team (Late Contact Info) Description 03/29/2021 Orders Only Obstetrics [place] [address] Sydney Bueno [facility] [address] Social History Tobacco Use Types Packs/Day Years [...] 11:00 AM EDT Office Visit Hematology/Oncology at [address] [phone] El Bernardo MD [facility] [place] [address] Linda Tamayo [address] HEMATOLOGY [place] [address] 04/21/2024 8:00 AM EST Appointment Mammography[place] [address] Linda Tamayo APRN [address] [place] [address] DR HEMATOLOGY AND ONCOLOGY [place], [place] [id number] documented as of this encounter Visit Diagnoses Not on filedocumented in this encounter Care Teams Forwarder Operator Relationship Specialty Start Date End Date Dena Alfonso APRN [address] [place], [place] [id number] PCP - General Geriatric Medicine 10/12/16 documented as of this encounter
--- OUTSIDE RECORDS SUMMARY | 2024-02-27 12:42 | XMS_ITS | Encounter Summary ---
Author Organization [facility] Address [facility] [place] [address] Care Team Providers Care Director And Professor Name Role Phone Dena Alfonso LIZABETH Primary Care Provider [phone] Encounter Details Date Type Department Care Team (Late st Contact Info) Description 09/12/2022 1:00 PM EDT Office Visit Hematology/Oncology at [address] [phone] Abe Tamayo APRN [address] [place] [address] DR HEMATOLOGY AND ONCOLOGY [place], [place] [id number] History of left breast cancer; BRCA1 positive; Rib pain on left side Social History Tobacco Use Types Packs/Day Years [...] Sign Reading Time Taken Comments Blood Pressure 112/70 09/12/2022 1:03 PM EDT Pulse 95 09/12/2022 1:03 PM EDT Temperature 36.1 ??C (96.9 ??F) 09/12/2022 1:03 PM ED T Respiratory Rate 16 09/12/2022 1:03 PM EDT Oxygen Saturation 100% 09/12/2022 1:03 PM EDT Inhaled Oxygen Concentration - - Weight 85.5 kg (188 lb 9.6 oz) 09/12/2022 1:03 P M EDT Height 162.6 cm (5' 4.02) 09/12/2022 1:03 PM ED T Body Mass Index 32.36 09/12/2022 1:03 PM EDT documented in this encounter Progress Notes * Abe Tamayo, WEB SERVICES MANAGER - 09/12/2022 1:00 PM EDT Images from the original note were not included. Subjective: Patient ID: Rebeca Hernández is 61 y.o. Problem List: 1. 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 A. Pt-discovered [...] with heterologous chondroid differentiation Tumor Grade: High Cmhorv-Gbgsp-Gytpwjhwja Score: 9 Tubular Differentiation: 3 Mitotic Rate: [...] carcinoma: 4 Estrogen/Progestin receptors: ER immunoreactivity: Negative WV immunoreactivity: Negative HER2/yeyo expression by FISH: NEGATIVE [...] same BRCA1 alteration found in her mother ([id number]). Prophylactic BSO 04/2013. Path - Right and left fallopian tubes and ovaries (bilateral salpingo-oophorectomy): No evidence of malignancy. 3. NEON MOLDER History: The patient is G4, P3 with [...] is by herself in clinic today. She continues to have her chronic back pain issues, these are primarily related to arthritis and scoliosis. She thinks it's about the same. She does BSE at times but it is difficult for her to evaluate. Not consistently. Appetite is good and weight is up a bit. Saw urgent care last week due to increasing rib pain a noticing a new lump in the area of her anterior lower left ribs, US ordered by them. No UTI, did have BV, on flagyl. US is scheduled for tomorrow (09/12/22), provider at urgent care thought it may be a fatty lipoma. Dull ache to L ribs, feels like it's always there, worse with positioning. Does not recall any trauma. Hasn't tried any medication to assist. For a while she thought it was associated with her bra band, but it has gotten worse. This is in the same area as the lump. She continues to have lower extremity pain that's intermittent, left more than right. She relates this to neuropathy. She does have a prescription for gabapentin but she hasn't tried it yet. Review of Systems Constitutional: Negative for activity change, appetite change, chills, fever and unexpected weight change. HENT: Negative. Eyes: Negative. Respiratory: Negative. Cardiovascular: Negative. Gastrointestinal: Negative. Negative for abdominal pain and diarrhea. Genitourinary: Negative. Musculoskeletal: Positive for arthralgias and back pain. Bilateral LE pain Skin: Negative. Neurological: Negative. Psychiatric/Behavioral: Negative. Objective: Physical Exam Vitals reviewed. Constitutional: General: She is not in acute distress. HENT: Head: Normocephalic and atraumatic. Eyes: General: No scleral icterus. Cardiovascular: Rate and Rhythm: Normal rate. Pulmonary: Effort: Pulmonary effort is normal. Abdominal: General: There is no distension. Palpations: Abdomen is soft. There is no mass. Tenderness: There is no abdominal tenderness. There is no guarding. Genitourinary: Comments: Breast exam: No skin dimpling or puckering and not masses note in either breast. Nipples everted. Musculoskeletal: General: Tenderness (Left lower anterior ribs. Soft movable mass approx 0.5cm x 1 cm to this area of tenderness.) present. No swelling. Lymphadenopathy: Cervical: No cervical adenopathy. Upper Body: Right upper body: No supraclavicular or axillary adenopathy. Left upper body: No supraclavicular or axillary adenopathy. Skin: General: Skin is warm and dry. Findings: No rash. Neurological: General: No focal deficit present. Mental Status: She is alert. Cranial Nerves: No cranial nerve deficit. Motor: No weakness. Psychiatric: Mood and Affect: Mood normal. Labs: MASSAGE OPERATOR Assessment and Plan: Rebeca Hernández is 61 yo and seen in f/u of left breast cancer in the setting of BRCA 1 positivity. Dx'd in 2004. 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 It was hormone receptor and her-2/yeyo negative. She received a partial mastectomy, adjuvant chemotherapy with AC, and radiation. She completed all therapy in 11/20. She is s/p prophylactic oophorectomy. She has declined prophylactic mastectomy. Clinically, she is doing well. The mammogram done 01/18/22 is negative. She did not have the breast MRI done due to the back issues. The most recent breast MRI was done on 09/07/20 and was negative. A bone scan was done on 01/05/22 due to bilateral LE pain. This is in the lower legs. The bone scan does not show evidence of metastatic disease. There is increased activity in the L-spine which corresponds to degenerative disease. It has been discussed that her daughter who lives in [place] should be tested for the BRCA genes. Her sister was tested and was negative. She believes her brother was tested and is positive. She has an ultrasound pending tomorrow. We will await the results of this before proceeding with next steps. I will addend this note with the plan. Addendum: US results below In discussion with Dr. Bernardo, given the ongoing tenderness, we will order a bone scan to be done within the next 2-3 weeks and ask her to return afterwards to review results. documented in this encounter Miscellaneous Notes * Addendum Note - Abe Tamayo APRN - 09/12/2022 1:00 PM EDTAddended by: ABE TAMAYO on: 09/14/2022 10:07 AM Modules accepted: Orders documented in this encounter Plan of Treatment Upcoming Encounters Date Type Department Care Team (Late st Contact Info) Description 03/27/2024 11:00 AM EDT Office Visit Hematology/Oncology at [address] [phone] El Bernardo MD [facility] [place] [address] [place] [address] 04/21/2024 8:00 AM EST Appointment Mammography[place] [address] [address] HEMATOLOGY AND ONCOLOGY [place], [place] [address] documented as of this encounter Visit Diagnoses Diagnosis History of left breast cancer BRCA1 positive Genetic susceptibility to malignant neoplasm of breast Rib pain on left side Chest pain, unspecified documented in this encounter Care Teams Director And Professor Relationship Specialty Start Date End Date Dena Alfonso APRN [address] [place] [address] PCP - General Geriatric Medicine 10/12/16 documented as of this encounter
--- OUTSIDE RECORDS SUMMARY | 2024-02-27 12:42 | XMS_ITS | Encounter Summary ---
Author Organization Formerly [facility] [place] [address] Care Team Providers Care Job Interviewer Name Role Phone Dena Alfonso LIZABETH Primary Care Provider +[phone] Encounter Details Date Type Department Care Team (Late st Contact Info) Description 03/29/2023 1:30 PM EDT Office Visit Hematology/Oncology at [address] [phone] Linda Tamayo APRN [address] [place] [address] DR HEMATOLOGY AND ONCOLOGY [place], [place] [id number] History of left breast cancer; BRCA1 positive; Encounter for screening mammogram for breast cancer Social History Tobacco Use Types [...] Mass Index 31.88 03/29/2023 1:34 PM EDT documented in this encounter Progress Notes * Linda Tamayo, METER AND REGULATOR SHOP SUPERVISOR - 03/29/2023 1:30 PM EDT Subjective: Patient ID: Rebeca Hernández is 62 y.o. Problem List: 1. 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 A. Pt-discovered [...] with heterologous chondroid differentiation Tumor Grade: High Hwynss-Blnpj-Ktsezktolr Score: 9 Tubular Differentiation: 3 Mitotic Rate: [...] carcinoma: 4 Estrogen/Progestin receptors: ER immunoreactivity: Negative [place] immunoreactivity: Negative HER2/yeyo expression by FISH: NEGATIVE [...] Routine screening. BIRADS CATEGORY 2: BENIGN FINDINGS Breast MRI 09/07/20 - IMPRESSION Stable post treatment changes in the left [...] annual screening. BI-RADS CATEGORY 2: BENIGN FINDINGS US soft tissue 09/13/22 - Impression: 1. Wall abnormality consistent with lipoma NM whole body bone scan 09/21/22 - Impression: 1. No change in the appearance of the whole body bone scan since 01/05/22 2. No abnormal uptake is seen in the ribs Bilateral mammogram, 02/22/23 - Impression: No mammographic evidence of malignancy, Routine annual screening mammography is recommended. FINAL ASSESSMENT: BI-RADS Category 2: Benign Findings 2. BRCA 1 mutation Family hx: One [...] same BRCA1 alteration found in her mother ([id number]). Prophylactic BSO 04/2013. Path - Right and left fallopian tubes and ovaries (bilateral salpingo-oophorectomy): No evidence of malignancy. 3. WOOD BORER History: The patient is G4, P3 with one daughter Her periods stopped for a while after [...] is by herself in clinic today. She is overall feeling well, Appetite is good and weight is up a bit. This is a hard time of year with the days getting shorter, and it's also the time of year she was diagnosed. She continues to have lower extremity pain that's intermittent, left more than right. She relates this to neuropathy. This is unchanged. No fevers or recent infections. Review of Systems Constitutional: Negative for activity [...] is no guarding. Genitourinary: Comments: Breast exam: done at last visit, due next in 6 months. Musculoskeletal: General: No swelling or tenderness. Lymphadenopathy: Cervical: No cervical adenopathy. Upper Body: Right upper body: No supraclavicular or axillary adenopathy. Left upper body: No supraclavicular or axillary adenopathy. Skin: General: Skin is warm and dry. Findings: No rash. Neurological: General: No focal deficit present. Mental Status: She is alert. Cranial Nerves: No cranial nerve deficit. Motor: No weakness. Psychiatric: Mood and Affect: Mood normal. Labs: HAIRPIECE STYLIST Assessment and Plan: Rebeca Hernández is 62 y.o. and seen in f/u of left breast cancer in the setting of BRCA 1 positivity. Dx'd in 2004. 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 It was hormone receptor and her-2/yeyo negative. She received a partial mastectomy, adjuvant chemotherapy with AC, and radiation. She completed all therapy in 11/20. She is s/p prophylactic oophorectomy. She has declined prophylactic mastectomy. A bone scan was done on 01/05/22 due to bilateral LE pain. This is in the lower legs. The bone scan does not show evidence of metastatic disease. There is increased activity in the L-spine which corresponds to degenerative disease. It has been discussed that her daughter who lives in [place] should be tested for the BRCA genes. Her sister was tested and was negative. She believes her brother was tested and is positive. Clinically, she is doing well. Her most recent bone scan was done September 2022 and is negative. Her most recent mammogram was done 02/2023 and is also benign. The most recent breast MRI was done on 09/07/20 and was negative. We discussed repeating the breast MRI but she is not interested at this time given how painful it is for her to lay on the machine. Of note, she mentions she has never had a colonoscopy. She does have a family history of polyps, though she is unsure of what type of polyps they were. After some discussion, she plans to ask her PCPabout cologuard testing with the acknowledgment that if that test is positive she would need a colonoscopy. documented in this encounter Plan of Treatment Upcoming Encounters Date Type Department Care Team (Late st Contact Info) Description 03/27/2024 11:00 AM EDT Office Visit Hematology/Oncology at [address] [phone] El Bernardo MD [facility] [place] [address] Linda Tamayo APRN [address] [place] [address] DR HEMATOLOGY AND ONCOLOGY [place], [place] [id number] 04/21/2024 8:00 AM EST Appointment Mammography/[place] [phone] Linda Tamayo APRN [address] [place] [address] DR HEMATOLOGY AND ONCOLOGY [place], [place] [address] Scheduled Orders Name Type Priority Associated Diagnoses Orde r Schedule Mammo Screening Cad and Elie Bilateral Imaging Routine History of left breast cancer BRCA1 positive Encounter for screening mammogram for breast cancer Expected: 03/02/2024 (Approximate), Expires: 03/29/2024 documented as of this encounter Visit Diagnoses Diagnosis History of left breast cancer BRCA1 positive Genetic susceptibility to malignant neoplasm of breast Encounter for screening mammogram for breast cancer documented in this encounter Care Teams Job Interviewer Relationship Specialty Start Date End Date Dena Alfonso APRN [address] [place] [address] PCP - General Geriatric Medicine 10/12/16 documented as of this encounter
--- OUTSIDE RECORDS SUMMARY | 2024-02-27 12:42 | XMS_ITS | Encounter Summary ---
Author Organization [facility] [place] [address] Care Team Providers Care Lens Polisher Name Role Phone Dena Alfonso APRN Primary Care Provider [phone] Reason for Visit * Reason Onset Date Comments Other 09/30/2023 Lump on right br east Encounter Details Date Type Department Care Team (Late Contact Info) Description 09/30/2023 Telephone Hematology/Oncology at [address] [phone] Lupe Mustafa RN Other (Lump on right breast) Social History Tobacco Use Types Packs/Day Years [...] encounter Miscellaneous Notes * Telephone Encounter - Lupe Mustafa RN - 09/30/2023 10:42 AM EDT Pt called and stated she found a lump in her other breast. (Right breast). Reviewed with Jarad Hanna NP she would like her to see PCP for examination and they will order mammo or other diagnostic studyon it and let us know results. Rebeca agreed with plan. documented in this encounter Plan of Treatment Upcoming Encounters Date Type Department Care Team ([facility] Contact Info) Description 03/27/2024 11:00 AM EDT Office Visit Hematology/Oncology at [address] [phone] El Bernarod MD [facility] [place] [address] Linda Hanna, [address] HEMATOLOGY AND ONCOLOGY [place], [place] [address] 04/21/2024 8:00 AM EST Appointment Mammography/[place] [address] Linda Hanna, [address] HEMATOLOGY AND ONCOLOGY [place], [place] [id number] documented as of this encounter Visit Diagnoses Not on filedocumented in this encounter Care Teams Lens Polisher Relationship Specialty Start Date End Date Dena Alfonso APRN [address] [place] [address] PCP - General Geriatric Medicine 10/12/16 documented as of this encounter
--- OUTSIDE RECORDS SUMMARY | 2024-02-27 12:42 | XMS_ITS | Encounter Summary ---
Author Organization [facility] [place] [address] Care Team Providers Care Hotel Reservationist Name Role Phone Dena Alfonso APRN Primary Care Provider [phone] Reason for Visit * Reason Onset Date Comments Results 06/19/2023 MRI Encounter Details Date Type Department Care Team ([facility] Contact Info) Description 06/19/2023 Telephone Hematology/Oncology at [address] [phone] Anna Hanna RN Results (MRI ) Social History Tobacco Use Types Packs/Day Years [...] Telephone Encounter - Anna Hanna RN - 06/19/2023 3:56 PM EST Giana is looking for the results of her MRI. No one has contacted her about it. It was done at the beginning of April. She can be reached at [phone]. documented in this encounter Plan of Treatment Upcoming Encounters Date Type Department Care Team (Late Contact Info) Description 03/27/2024 11:00 AM EDT Office Visit Hematology/Oncology at [address] [phone] El Bernardo MD [facility] [place] [address] [address] HEMATOLOGY AND ONCOLOGY [place], [place] [address] 04/21/2024 8:00 AM EST Appointment Mammography/[place] [address] [address] HEMATOLOGY AND ONCOLOGY [place], [place] [phone] documented as of this encounter Visit Diagnoses Not on filedocumented in this encounter Care Teams Hotel Reservationist Relationship Specialty Start Date End Date Dena Alfonso APRN [address] [place], [place] [id number] PCP - General Geriatric Medicine 10/12/16 documented as of this encounter
--- OUTSIDE RECORDS SUMMARY | 2024-02-27 12:42 | XMS_ITS | Encounter Summary ---
Author Organization Formerly [facility] Address [facility] [place] [address] Care Team Providers Care Serger Name Role Phone Dena Alfonso APRN Primary Care Provider Encounter Details Date Type Department Care Team (Late Contact Info) Description 09/13/2022 3:20 PM EDT Ancillary Procedure Radiology Library at [facility] [place] [address] El Bernardo MD [facility] [place] [address] Social History Tobacco Use Types Packs/Day Years [...] 11:00 AM EDT Office Visit Hematology/Oncology at [address] [phone] El Bernardo MD [facility] [place] [address] Linda Tamayo APRN [address] [place] [address] DR HEMATOLOGY [place] [address] 04/21/2024 8:00 AM EST Appointment Mammography/[place] [address] Linda Tamayo APRN [address] [place] [address] DR HEMATOLOGY AND ONCOLOGY [place], [place] [phone] documented as of this encounter Procedures Procedure Name Priority Date/Time Associated Diagnosis Comments FILM LIBRARY STORAGE ONLY ULTRASOUND STUDY Routine 09/13/2022 3:18 PM EDT documented in this encounter Results * Film Library- Storage Only Ultrasound Study (09/13/2022 3:18 PM EDT) Narrative [facility] - 09/13/2022 3:18 PM EDT This exam is auto-finalizing. It's purpose is for storage only. El Bernardo MD IMG FILM LIBRARY ORD ERABLES [place], [place] documented in this encounter Visit Diagnoses Not on filedocumented in this encounter Care Teams Serger Relationship Specialty Start Date End Date Dena Alfonso APRN [address] [place] [address] PCP - General Geriatric Medicine 10/12/16 documented as of this encounter
--- OUTSIDE RECORDS SUMMARY | 2024-02-27 12:42 | XMS_ITS | Encounter Summary ---
Author Organization [facility] Address [facility] [place] [address] Care Team Providers Care Marketing Communications Manager Name Role Phone Dena Alfonso APRN Primary Care Provider [phone] Encounter Details Date Type Department Care Team (Latest Contact Info) Description 01/18/2022 2:39 PM EDT - 01/18/2022 11:59 PM EDT Hospital Encounter Mammography/[place] [phone] El Bernardo MD [facility] [place] [address] History of left breast cancer; BRCA1 positive; Breast cancer screening by mammogram Discharge Disposition: [...] dose. Call 911. 2 each 1 06/16/2014 acetaminophen (Tylenol) 500 mg Tablet Take 1,000 mg by mouth every 6 hours as needed for Pain. olopatadine (PATADAY) 0.2 % Drops INSTILL 1 DROP INTO AFFECTED EYE S ONCE DAILY NEEDED 3 12/12/2017 fluticasone (FLONASE) 50 mcg/actuation [place], Suspension 1 spray by Each Nare route daily as needed. cetirizine (ZYRTEC) 10 mg Tablet Take 10 mg by mouth daily as needed for Allergies. Reported on 10/12/2016 estradioL (ESTRACE) 0.01 % (0.1 mg/gram) CreamIndications:Vagi nal atrophy Place 1 g vaginally twice a week. 30 g 5 03/30/2021 01/19/2022 lisinopriL (Zestril) 5 mg TabletIndications:Isc hemic cardiomyopathy TAKE ONE TABLET BY MOUTH EVERY DAY 90 tablet 3 01/09/2021 01/19/2022 documented as of this encounter Plan of Treatment Upcoming Encounters Date Type Department Care Team (Late st Contact Info) Description 03/27/2024 11:00 AM EDT Office Visit Hematology/Oncology at [address] [phone] El Bernardo MD [facility] [place] [address] Linda Tamayo APRN [address] [place] [address] DR HEMATOLOGY [place] [address] 04/21/2024 8:00 AM EST Appointment Mammography/[place] [address] Linda Tamayo APRN [address] [place] [address] DR HEMATOLOGY [place] [address] documented as of this encounter Procedures Procedure Name Priority Date/Time Associated Diagnosis Comments MAMMO SCREENING CAD AND JEAN BILATERAL Routine 01/18/2022 3:14 PM EDT History of left breast cancer BRCA1 positive Breast cancer screening by mammogram documented in [...] who have questions please contact the health care navigator that requested your imaging first. ? El Bernardo MD IMG MAMMO ORDERABLES documented in this encounter Visit Diagnoses Diagnosis History of left breast cancer BRCA1 positive Genetic susceptibility to malignant neoplasm of breast Breast cancer screening by mammogram documented in this encounter Care Teams Marketing Communications Manager Relationship Specialty Start Date End Date Dena Alfonso APRN [address] [place] [address] PCP - General Geriatric Medicine 10/12/16 documented as of this encounter
--- OUTSIDE RECORDS SUMMARY | 2024-02-27 12:42 | XMS_ITS | Encounter Summary ---
Author Organization [facility] Address [facility] [place] [address] Care Team Providers Care Winding Rack Operator Name Role Phone Dena Alfonso APRN Primary Care Provider Encounter Details Date Type Department Care Team (Late Contact Info) Description 01/05/2022 Ancillary Procedure Radiology Library at [facility] [place] [address] El Bernardo MD [facility] [place] [address] Social History Tobacco Use Types Packs/Day Years [...] 11:00 AM EDT Office Visit Hematology/Oncology at [address] [phone] El Bernardo MD [facility] [place] [address] Linda Tamayo APRN [address] [place] [address] DR HEMATOLOGY [place] [address] 04/21/2024 8:00 AM EST Appointment Mammography/[place] [address] Linda Tamayo APRN [address] [place] [address] DR HEMATOLOGY AND ONCOLOGY [place], [place] [phone] documented as of this encounter Procedures Procedure Name Priority Date/Time Associated Diagnosis Comments FILM LIBRARY STORAGE ONLY NUCLEAR MEDICINE Routine 01/05/2022 12:00 AM EDT documented in this encounter Results * Film Library- Storage Only nuclear medicine (01/05/2022 12:00 AM EDT) Narrative [facility] - 01/19/2022 4:18 PM EDT This exam is auto-finalizing. It's purpose is for storage only. El Bernardo MD IMG FILM LIBRARY ORD ERABLES [place], [place] documented in this encounter Visit Diagnoses Not on filedocumented in this encounter Care Teams Winding Rack Operator Relationship Specialty Start Date End Date Dena Alfonso APRN [address] [place] [address] PCP - General Geriatric Medicine 10/12/16 documented as of this encounter
--- OUTSIDE RECORDS SUMMARY | 2024-02-27 12:42 | XMS_ITS | Encounter Summary ---
Author Organization Formerly [facility] Address [facility] [place] [address] Care Team Providers Care Sales Assoc Name Role Phone Dena Alfonso APRN Primary Care Provider [phone] Encounter Details Date Type Department Care Team (Latest Contact Info) Description 08/23/2020 9:04 AM EST - 08/23/2020 11:59 PM [facility] Hospital Encounter XRay at [address] [place] [address] Cj Castro Jr., MD [facility] [place] [address] Pain in right wrist; Right hand pain Discharge Disposition: Home Social History Tobacco Use [...] NEEDED 3 12/12/2017 fluticasone (FLONASE) 50 mcg/actuation [place], Suspension 1 spray by Each Nare route [...] 11:00 AM EDT Office Visit Hematology/Oncology at [address] [phone] El Bernardo MD [facility] [place] [address] Linda Tamayo APRN [address] [place] [address] DR HEMATOLOGY [place] [address] 04/21/2024 8:00 AM EST Appointment Mammography/[place] [address] Linda Tamayo, SENIOR ENGINEERING MANAGER [address] [place] [address] DR HEMATOLOGY [place] [address] documented as of this encounter Procedures Procedure Name Priority Date/Time Associated Diagnosis Comments XR WRIST 3 VIEWS RIGHT Routine 08/23/2020 9:26 AM EST Pain in right wrist XR HAND MIN 3 VIEWS RIGHT Routine 08/23/2020 9:26 AM EST Right hand pain documented in this encounter Results * XR Hand Min [...] this report, please contact the number below. Electronically signed by: Dena Parker MD, [facility]([phone]), at 08/23/2020 9:59 AM Cj Castro Jr., MD IMG DX LORNA [...] the number below. ? Electronically signed by: Dena Parker MD, [facility] ([phone]), at 08/23/2020 9:59 AM Narrative 08/23/2020 9:59 AM EST EXAMINATION: XR [...] this report, please contact the number below. Electronically signed by: Dena Parker MD, [facility]([phone]), at 08/23/2020 9:59 AM Cj Castro Jr., MD IMG DX [place] WANG documented in this encounter Visit Diagnoses Diagnosis Pain in right wrist Pain in joint, forearm Right hand pain Pain in limb documented in this encounter Care Teams Sales Assoc Relationship Specialty Start Date End Date Dena Alfonso APRN [address] [place] [address] PCP - General Geriatric Medicine 10/12/16 documented as of this encounter
--- OUTSIDE RECORDS SUMMARY | 2024-02-27 12:42 | XMS_ITS | Encounter Summary ---
Author Organization [facility] Address [facility] [place] [address] Care Team Providers Care Engraver Machine Name Role Phone Dena Alfonso APRN Primary Care Provider [phone] Encounter Details Date Type Department Care Team (Late st Contact Info) Description 08/09/2020 Telephone Cardiology at [address] [place] [address] Lester Parada MD [facility] [place] [address] Social History Tobacco Use Types Packs/Day Years [...] encounter Miscellaneous Notes * Telephone Encounter - Sydney Mosley - 08/16/2020 2:25 PM EST Appt scheduled 09/19/2020 pt informed * Telephone Encounter - Sydney Mosley - 08/15/2020 8:51 AM EST Rebeca called asking if we have received the referral for the 2nd opinion? She is very anxious to have an appt with Dr Parada. @[phone] * Telephone Encounter - Monica Jack RN - 08/10/2020 11:43 AM EST Call back to Rebeca to discuss her inquiry. Through question and answer, these points were noted: 1. Rebeca does not wish to commute to [place] for cardiology care. 2. 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 The referral was made to Dr. Clemons and her first appointment would be August 25. 3. A friend of Rebeca is a patient of Dr. Parada and strongly recommended she see him because of the rapport and effective explanation of medical things to her. 4. Rebeca plans to cancel the appointment with Dr. Clemons because she now prefers Dr. Parada because of the friend's glowing review 5. Rebeca knows about the measurements of recent echocardiogram and worries much about implications and potential future complications. She is not comforted by the plan to recheck in a few months with another echo. 6. 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 Explanation to patient and plan: This nurse has reached out to Dr. Govea to explain the need for a second opinion. That will needto be modified to - referral to Dr. Parada regarding cardiac changes in the setting of chemotherapy. Rebeca is the appropriate person to decline the cardiology referral to Dr. Clemons. This nurse will connect Dr. Govea and Dr. Parada to distinguish if this is a consult to follow her for aortic root enlargement. * Telephone Encounter - Sydney Mosley - 08/10/2020 9:55 AM EST Patient called asking if she needed to do anything to be able to see Dr. Parada for a 2nd opinion. She (unknown to us) has an appt with Dr Recio on 08/25/2020. She would rather see Dr Parada. #[phone] * Telephone Encounter - Monica Jack, RN - 08/10/2020 8:27 AM EST Record reviewed. July orders for echocardiogram and progress note of Dr. Jose Gramajo does not reflect a need to have patient see Dr.Daniel Kaya Parada. Plan: inquiry to Dr. Govea about the patient-stated recommendation to see Dr. Parada regarding the aorta. If yes, an appointment will be scheduled. Patient will need to be called back with the plan that results. * Telephone Encounter - Sydney Mosley - 08/09/2020 1:32 PM EST Patient called and she is asking for a 2nd opinion from Dr Jose Govea from [facility] about an enlarged aortia w/ Dr Parada. She was told that a referral was not needed since it is a [facility] Doctor to another [facility] Doctor. Please let me know and I will schedule an appt w/ Dr Parada. documented in this encounter Plan of Treatment Upcoming Encounters Date Type Department Care Team (Late st Contact Info) Description 03/27/2024 11:00 AM EDT Office Visit Hematology/Oncology at [address] [phone] El Bernardo MD [facility] [place] [address] [address] HEMATOLOGY AND ONCOLOGY [place], [place] [address] 04/21/2024 8:00 AM EST Appointment Mammography/[place] [address] Linda Tamayo [address] HEMATOLOGY AND ONCOLOGY [place], [place] [address] documented as of this encounter Visit Diagnoses Not on filedocumented in this encounter Care Teams Engraver Machine Relationship Specialty Start Date End Date Dena Alfonso APRN [address] [place] [address] PCP - General Geriatric Medicine 10/12/16 documented as of this encounter
--- OUTSIDE RECORDS SUMMARY | 2024-02-27 12:42 | XMS_ITS | Encounter Summary ---
Author Organization [facility] Address [facility] [place] [address] Care Team Providers Care Video Games Storywriter Name Role Phone Dena Alfonso APRN Primary Care Provider Encounter Details Date Type Department Care Team (Late Contact Info) Description 09/27/2022 Orders Only Hematology/Oncology at [address] [phone] Linda Tamayo [address] [place] [address] History of left breast cancer; BRCA1 positive; Encounter for screening mammogram for malignant neoplasm of breast Social History Tobacco Use Types Packs/Day Years [...] 11:00 AM EDT Office Visit Hematology/Oncology at [address] [phone] El Bernardo MD [facility] [place] [address] Linda Tamayo [address] HEMATOLOGY AND ONCOLOGY [place], [place] [phone] 04/21/2024 8:00 AM EST Appointment Mammography/[place] [address] Linda Tamayo OPERATING ROOM COORDINATOR [address] [place] [address] [place] [address] documented as of this encounter Results * [...] who have questions please contact the health director career that requested your imaging first. ? Electronically signed by: Brianna Lopez MD, [facility] ([phone]), at 02/22/2023 2:31 PM Narrative 02/22/2023 2:31 PM EDT EXAMINATION: MAMMO [...] malignant neoplasm of breast Other screening mammogram History of left breast cancer BRCA1 positive Genetic susceptibility to malignant neoplasm of breast Encounter for screening mammogram for malignant neoplasm of breast Other screening mammogram documented in this encounter Care Teams Video Games Storywriter Relationship Specialty Start Date End Date Dena Alfonso APRN [address] [place] [address] PCP - General Geriatric Medicine 10/12/16 documented as of this encounter
--- OUTSIDE RECORDS SUMMARY | 2024-02-27 12:42 | XMS_ITS | Encounter Summary ---
Author Organization [facility] Address [facility] [place] [address] Care Team Providers Care Powersaw Supervisor Name Role Phone Dena Alfonso APRN Primary Care Provider [phone] Reason for Visit * Reason Comments Uterine Prolapse * Consultation (Urgent) - Closed Specialty Diagnoses / Procedures Referred By Mariah tate Referred To Contact Obstetrics and Gynecology Diagnoses Uterovaginal prolapse, unspecified Postmenopausal atrophic vaginitis Encounter for fitting and adjustment of other specified devices PESSARY PLACEMENT/REPLACEMENT Procedures Urgent per pt request and not referring office - marked referral Urgent just in case for review by clinic. Dena Alfonso APRN [address] [place] [address] [facility] Liner Roll Changer [address] [place] [address] Referral ID Status Reason Start Date Expiration Date V isits Requested Visits Authorized [id number] Closed Consult, [facility] PCP Updated and/or Approved 03/20/2021 03/20/2022 6 6 Encounter Details Date Type Department Care Team (Late st Contact Info) Description 03/29/2021 2:30 PM EDT Office Visit Obstetrics [place] [address] Sydney Bueno APRN [facility] [place] [address] Screening for malignant neoplasm of cervix; Uterovaginal prolapse, incomplete Social History Tobacco Use Types Packs/Day Years [...] Sign Reading Time Taken Comments Blood Pressure 129/91 03/29/2021 2:38 PM EDT Pulse 104 03/29/2021 2:38 PM EDT Temperature 36.2 ??C (97.2 ??F) 03/29/2021 2:38 PM ED T Respiratory Rate 18 03/29/2021 2:38 PM EDT Oxygen Saturation 99% 03/29/2021 2:38 PM EDT Inhaled Oxygen Concentration - - Weight 81.2 kg (179 lb) 03/29/2021 2:38 PM EDT Height 162.6 cm (5' 4) 03/29/2021 2:38 PM EDT Body Mass Index 30.73 03/29/2021 2:38 PM EDT documented in this encounter Progress Notes * Sydney Bueno APRN - 03/29/2021 2:30 PM EDT Female Pelvic Medicine and Reconstructive Surgery @ [facility] Patient Name: Rebeca Hernández Patient Primary Care Provider: Dena Alfonso APRN Patient Active Problem List Diagnosis Code ??? Breast cancer C50.919 ??? Depression F32.A ??? Chest pain R07.9 ??? Cardiomyopathy I42.9 ??? GERD (gastroesophageal reflux disease) K21.9 ??? Palpitations R00.2 ??? History of left knee surgery Z98.890 ??? BRCA1 positive Z15.01, Z15.09 ??? Diabetes mellitus type 2, diet-controlled E11.9 ??? Vaginal prolapse N81.10 ??? Aortic aneurysm without rupture I71.9 ??? Osteopenia M85.80 ??? Scoliosis M41.9 ??? Bipolar I disorder with depression F31.9 ??? Aortic root dilatation I77.810 ??? History of bilateral oophorectomy Z90.722 ??? History of left heart catheterization (LHC) Z98.890 ??? Malignant neoplasm of skin C44.90 ??? Migraine headache G43.909 Chief Complaint: Pessary care History of Present Illness: Ms. Hernández is a 60 y.o. old para 3 woman, seen at the kind request of Dena Alfonso APRN for an urgent pessary replacement. Please see Janice Jacques's office note from 2018 for a similar visit. According to a [address] Solano, Rebeca had a cone biopsy in 1992 which was benign--no documentation found as to the degree of the abnormality. Last Pap per our record was normal in 2014. I don't see any results for others done elsewhere. She still sees Oncology 2x/yr, as well as MRI and annual mmg. She feels she should go back on vaginal estradiol (which had been been okayed by her breast oncologist and started by Dr. Solano); she'd stopped Yuvafem because of its cost. She rarely has a little spotting when she replaces the pessary. Goals for this visit 1. Pessary Urinary tract history Patient denies recent history of recurrent urinary tract infection. She takes a probiotic. Patient denies history of pyelonephritis. Patient denies history of urinary tract abnormality. Patient denies history of nephrolithiasis. Patient denies history of hematuria. Bladder irritants: Fluid intake: 2 or 3 qts Caffeine intake: 2-3 cups per day Cigarette smoking (packs, time, if quit when): no Alcohol: occ Bladder Function Urinary incontinence: maybe, or perhaps it's discharge; but she is not interested in addressing this specifically She hasn't been sexually active at all in many years. Sexual Function Active?: yes Pain with intercourse?: Some dryness Desire to retain sexual function? yes Past Medical History: Diagnosis Date ??? AAA (abdominal aortic aneurysm) ??? Abnormal Pap smear of cervix ??? Allergic rhinitis ??? Bipolar disorder, rapid cycling ??? BRCA1 gene mutation positive ??? Breast cancer ??? Cardiomyopathy ??? Chronic anxiety ??? Diabetes ??? Migraines ??? Vaginal prolapse OB History Para Term AB Living 4 3 0 0 0 3 SAB IAB Ectopic Multiple Live Births 0 0 0 0 3 # Outcome Date GA Lbr Winston/2nd Weight Sex Delivery Anes PTL Lv 4 3 Para 2 Para 1 Para Outpatient Medications Marked as Taking for the 03/29/21 encounter (Office Visit) with Shawna Bueno APRN Medication Sig Dispense Refill ??? acetaminophen (Tylenol) 500 mg Tablet Take 1,000 mg by mouth every 6 hours as needed for Pain. ??? Berb Moreira/herbal complex no.18 (BERBERINE-HERBAL COMB NO.18 ORAL) Take 500 mg by mouth 3 times daily. For antihyperglycemic effects ??? augmented betamethasone dipropionate (DIPROLENE-AF) 0.05 % [...] EYE S ONCE DAILY NEEDED 3 ??? fluticasone (FLONASE) 50 mcg/actuation Loop, Suspension 1 spray by Each Nare route daily as needed. ??? valACYclovir (VALTREX) 500 mg Tablet Take 1 tablet by mouth 2 times daily. (Patient taking differently: Take 500 mg by mouth 2 times daily as needed.) 6 tablet 0 ??? Cholecalciferol, Vitamin D3, (VITAMIN D-3) 2,000 unit Capsule Take by mouth daily. ??? EPINEPHrine (EPIPEN) 0.3 mg/0.3 mL (1:1,000) Auto-Injector Inject 0.3 mLs into the muscle once as needed (difficulty breathing, throat swelling, loss of consciousness) for up to 1 dose. Call 911.2 each 1 Allergies Allergen Reactions ??? Iodine Hives and Itching Other reaction(s): hives ??? Tramadol Hives Other reaction(s): Hives ??? Carvedilol Rash Other reaction(s): Other (See Comment) ??? Codeine Other reaction(s): RASH ??? Morphine Itching Extreme itching ??? Penicillins Rash Other reaction(s): RASH ??? Sulfa (Sulfonamide Antibiotics) Other reaction(s): Rash ??? Codeine Phosphate Rash ??? Vicodin [Hydrocodone-Acetaminophen] Rash ??? Hydrocodone Other reaction(s): ITCHING Social History Socioeconomic History ??? Marital status: Spouse name: Not on file ??? Number of children: Not on file ??? Years of education: Not on file ??? Highest education level: Not on file Occupational History ??? Not on file Tobacco Use ??? Smoking status: Never Smoker ??? Smokeless tobacco: Never Used ??? Tobacco comment: only exposure was as a child Vaping Use ??? Vaping Use: Never used Substance and Sexual Activity ??? Alcohol use: Yes Alcohol/week: 1.0 standard drink Types: 1 Cans of beer per week Comment: Occasionally ??? Drug use: No ??? [...] of Exercise per Session: Not on file Housing Stability: ??? Unable to Pay for Housing in the Last Year: Not on file ??? Number of Places Lived in the Last Year: Not on file ??? Unstable Housing in the Last Year: Not on file Family History Problem Relation Age of Onset ??? Breast Cancer Other ??? Allergic Rhinitis Father ??? Breast Cancer Maternal Grandmother ??? Breast Cancer Mother ??? Asthma Neg Hx Family history: denies history of gynecologic cancer Last Pap smear: 2014 NILM To further delineate patient's urinary symptoms, a urine dip test and postvoid residual via bladderscanner were obtained. US PVR 90 mL POC UA negative OBJECTIVE: BP (!) 129/91 Pulse (!) 104 Temp 36.2 ??C (97.2 ??F) (Temporal) Resp 18 Ht 162.6 cm (5' 4) Wt 81.2 kg (179 lb) SpO2 99% BMI 30.73 kg/m?? General: normal appearing female, pleasant mood, normal speech Skin: skin of abdomen/pelvis normal Gastrointestinal: no palpable masses/organomegaly, soft/nontender, no appreciable hernia Pelvic: Cough stress test (empty supine): negative External Genitalia: Vulva atrophic epithelium, no lesion or dystrophic change, [place]'s and Bartholin glands normal, urethra without tenderness or mass Vagina: smooth pale epithelium, no visible abrasion She is wearing a #3 open ring pessary, with tissue bulging through Discharge?: minimal Cervix: Appears nulliparous; friable. Pap is obtained with brush and broom. Bimanual (uterus/adnexa): no CMT; uterus is small and mobile, nontender Pelvic Organ Prolapse Quantification (POP-Q): Aa -1 Ba 0 C -6 Gh Rest strain 3,3 PB Rest strain 3,3 TVL 11 Ap 0 Bp 0 D -8 Impression: Ms. Hernández is a .60 y.o. woman with: ?? Stage 2 uterovaginal prolapse, basically stable from last exam. ?? Friable cervix, overdue for screening ?? Vulvovaginal atrophy Recommendations: Based on the patient's expressed goals for management I have recommended the following: ?? Pessary is exchanged for a new open ring #3. She doesn't like ring w support, which we have tried, because she cannot remove it (this was the problem before). She's not eager for surgical repair but we have discussed that option in some detail. ?? I recommend she do a colonoscopy: this will not harm her prolapse in any way. ?? We are sending Pap and HPV and she requests a letter with that result and plan. ?? Compounded estradiol 0.01% cream, 30 gm, 4 RF, Insert 1 gram at HS two nights a week ?? RTO 1 yr or prn. I spent 60 minutes total with the patient, with 20 minutes of the time spent [id number] in discussing her diagnosis and reviewing options for treatment. Sydney Bueno APRN Division of Female Pelvic Medicine/Reconstructive Surgery CC: Dena Alfonso APRN documented in this encounter Plan of Treatment Upcoming Encounters Date Type Department Care Team (Late st Contact Info) Description 03/27/2024 11:00 AM EDT Office Visit Hematology/Oncology at [address] [phone] El Bernardo MD [facility] [place] [address] [address] [place] [address] 04/21/2024 8:00 AM EST Appointment Mammography/[place] [phone] Linda Tamayo[address] HEMATOLOGY AND ONCOLOGY [place], [place] [phone] documented as of this encounter Procedures Procedure Name Priority Date/Time Associated Diagnosis Comments CYTOPATHOLOGY GYNECOLOGICAL Routine 03/29/2021 4:18 PM EDT Screening for malignant neoplasm of cervix HPV Routine 03/29/2021 2:30 PM EDT BEVEL GEAR GENERATOR OPERATOR CYTOLOGY INTERPRETATION Routine 03/29/2021 2:30 PM EDT BEVEL GEAR GENERATOR OPERATOR CYTOLOGY FINAL REPORT Routine 03/29/2021 2:30 PM EDT BLADDER SCANNER Routine 03/29/2021 Uterovaginal prolapse, incomplete POCT URINE DIPSTICK Routine 03/29/2021 Uterovaginal prolapse, incomplete documented in this encounter Results * Cytopathology Gynecological (03/29/2021 4:18 PM EDT) AP Specimen 03/29/2021 4:18 PM EDT 03/29/2021 4:18 PM EDT [facility] LABORATORY - 03/29/2021 4:18 PM EDT Specimen requisition ordered. ??Separate Pathology report to follow Sydney Bueno APRN PATHOLOGY/CYTOLOGY O [facility] [place] [address] * Financial Reporting Analyst Cytology Final Report (03/29/2021 2:30 PM EDT) Financial Reporting Analyst Cytology Final Report [id number] ? Location: 5L The signing pathologist has (i) examined the relevant preparation(s) for the specimen(s) and (ii) rendered or confirmed the diagnosis(es). . ? Financial Reporting Analyst Final DIAGNOSIS Normal Negative for intraepithelial lesion or malignancy (NILM). For consensus guidelines for the management of cervical cancer screening test results, please see: ?? http://www.asccp.o rg . Electronically signed by: ?Patricia SEGAL(ASCP)[place] Verified: ??04/11/2021 10:31 ??Corn Husker Machine Operator Performed at: ??-[facility] [place], [place], [place] HPV RESULTS HPV16 (Result) ?Negative HPV18 [...] to detect low risk HPV types. Isaac cady HPV test Specimen: HPV Testing - Cytology Liquid Based Prep The Isaac cady ? HPV test was validated, performed and results reported through the [facility] ([facility]) at [facility] [place]. ? - El Garg, PhD, [facility], Director-[facility] STATEMENT OF ADEQUACY Specimen submitted is satisfactory. Endocervical component present. CLINICAL INFORMATION HPV Option: ?Concurrent HPV and Pap CT/NG Option: ?No Preparation: ? Liquid based Pap Specimen Source: ? Cervical/Endocervi kelly LMP: ? postmenopausal Hysterectomy: ?No : ?No : ?No I.U.D.: ?No Pelvic Radiation: ?No Hist Abnl Pap/Biopsy: ?Yes, history of previous abnormal Pap Prior BEVEL GEAR GENERATOR OPERATOR Therapy: ? Cone Biopsy Hist of HPV Vaccine: ? No ICD Diagnosis: ? Z12.4 Encounter for screening for malignant neoplasm of cervix Clinical Data, Significant Therapy and Clinical Impression ?? : ?cone in 1992 . CLINICAL INFORMATION This Pap Test has been evaluated with the assistance of the Pressure BioSciencesPrep Pap Test Imaging System. Note: The Pap test is a screening test for cervical cancer with an inherent false-negative rate dependent upon several variables. For further information please contact the [facility] [place]. Reference: Nishi CALDERON. Strap Machine Operator of Pap Smear Results. In: Julio Cesar BS, Misael HH, ed. The Pap Smear. [place]: Jerad, 2002: 71-77. [facility] 03/29/2021 2:30 PM EDT Sydney Gabriel Ximena BARONE PATHOLOGY/CYTOLOGY O RDERABLES [facility] [place] [address] * BEVEL GEAR GENERATOR OPERATOR Cytology Interpretation (03/29/2021 2:30 PM EDT) Financial Reporting Analyst Cytology Interpretation [facility] Comment:Financial Reporting Analyst Cytology Final R eport Endocervical Component Present [facility] AP Specimen 03/29/2021 2:30 PM EDT 04/11/2021 10:31 AM EDT Sydney Bueno APRN PATHOLOGY/CYTOLOGY O RDERABLES Performing Organization Address [facility]/ZIP Co de Phone Number [facility] [place] [address] * HPV (03/29/2021 2:30 PM EDT) HPV16 NEGATIVE NEGAT[address] [facility] HPV [address] [facility] HPV Other HR NEGATIVE NEGATIVE [facility] HPV Interpretation See Comment [facility] Comment: NEGATIVE for high-risk HPV [...] Resulting Agency Comment Spec In Lab Sydney Gabriel Ximena BARONE PATHOLOGY/CYTOLOGY O RDERABLES Performing Organization Address City/[facility]/ZIP Co de Phone Number [facility] [place] [address] * Bladder Scanner (03/29/2021) Bladder Scan (mL) 90 mL Sydeny Bueno APRN URO PROC W/O RFL ORD ERABLES * POCT urine dipstick (03/29/2021) POC Sp [place]ima 1.010 1.002 - 1.030 POC pH, UA 5 5.0 - 8.5 POC Leuk, UA Neg. Negative - Negative POC Nitrite, UA Neg. Negative - Negative POC Protein, UA Neg. Negative - Negative mg/dL POC Glucose, UA Norm. Normal - Normal mg/dL POC Ketone, UA Neg. Negative - Negative POC Urobil, UA Norm. 0.2 - 1.0 mg/dL POC Bili, UA Neg. Negative - Negative POC Blood, UA Neg. Negative - Negative dorys/uL Sydney Bueno APRN POINT OF CARE TEST O RDERABLES documented in this encounter Visit Diagnoses Diagnosis Screening for malignant neoplasm of cervix Screening for malignant neoplasm of the cervix Uterovaginal prolapse, incomplete documented in this encounter Care Teams Powersaw Supervisor Relationship Specialty Start Date End Date Dena Alfonso APRN [address] [place] [address] PCP - General Geriatric Medicine 10/12/16 documented as of this encounter
--- OUTSIDE RECORDS SUMMARY | 2024-02-27 12:42 | XMS_ITS | Encounter Summary ---
Author Organization [facility] Address [facility] [place] [address] Care Team Providers Care Payroll Lead Name Role Phone MonsterDena Dobson PHYSICAL THERAPY ASSISTANT INSTRUCTOR Primary Care Provider Encounter Details Date Type Department Care Team (Latest Contact Info) Description 10/16/2023 8:54 AM EDT - 10/16/2023 11:59 PM EDT Hospital Encounter Mammography at [facility] [place] [address] Dena Alfonso APRN [address] [place] [address] Mass of right breast, unspecified quadrant; Genetic [...] NEEDED 3 12/12/2017 fluticasone (FLONASE) 50 mcg/actuation [place], Suspension 1 spray by Each Nare route daily as needed. cetirizine (ZYRTEC) 10 mg Tablet Take 10 mg by mouth daily as needed for Allergies. Reported on 10/12/2016 documented as of this encounter Plan of Treatment Upcoming Encounters Date Type Department Care Team (Late st Contact Info) Description 03/27/2024 11:00 AM EDT Office Visit Hematology/Oncology at [address] [phone] El Bernardo MD [facility] [place] [address] [address] HEMATOLOGY AND ONCOLOGY [place], [place] [phone] 04/21/2024 8:00 AM EST Appointment Mammography/[place] [address] [address] HEMATOLOGY AND ONCOLOGY [place], [place] [phone] documented as of this encounter Procedures Procedure Name Priority Date/Time Associated Diagnosis Comments MAMMO DIAGNOSTIC CAD AND JEAN RIGHT Routine 10/16/2023 9:46 AM EDT Mass of right breast, unspecified quadrant Genetic susceptibility to malignant neoplasm of breast Genetic susceptibility to other malignant neoplasm Personal history of malignant neoplasm of breast documented in this encounter Results * Mammo Diagnostic Cad and Jena Right (10/16/2023 9:46 AM EDT) WORKSTATION ID [id number] 1 RAD Anatomical Region Laterality Modality Breast [...] who have questions please contact the health foster care therapist that requested your imaging first. ? Narrative [...] breast documented in this encounter Care Teams Payroll Lead Relationship Specialty Start Date End Date Dena Alfonso APRN [address] [place] [address] PCP - General Geriatric Medicine 10/12/16 documented as of this encounter
--- OUTSIDE RECORDS SUMMARY | 2024-02-27 12:42 | XMS_ITS | Encounter Summary ---
Author Organization [facility] Address [facility] [place] [address] Care Team Providers Care Patient Experience Coordinator Name Role Phone Dena Alfonso APRN Primary Care Provider [phone] Encounter Details Date Type Department Care Team (Late st Contact Info) Description 10/12/2020 Telephone Cardiology at [address] [place] [address] Lester Parada MD [facility] [place] [address] Social History Tobacco Use Types Packs/Day Years [...] encounter Miscellaneous Notes * Telephone Encounter - Hue Pillai RN - 10/12/2020 10:49 AM EDT Called patient and let her know. * Telephone Encounter - Hue Pillai RN - 10/12/2020 10:21 AM EDT ----- Message from Lester Parada MD sent at 10/11/2020 6:38 PM EDT ----- Good news. Patient's aorta isnt enlarged. The distance on the echo was likely due to off-axis measurement documented in this encounter Plan of Treatment Upcoming Encounters Date Type Department Care Team (Late st Contact Info) Description 03/27/2024 11:00 AM EDT Office Visit Hematology/Oncology at [address] [phone] El Bernardo MD [facility] [place] [address] [address] HEMATOLOGY AND ONCOLOGY [place], [place] [address] 04/21/2024 8:00 AM EST Appointment Mammography/[place] [address] [address] HEMATOLOGY AND ONCOLOGY [place], [place] [address] documented as of this encounter Visit Diagnoses Not on filedocumented in this encounter Care Teams Patient Experience Coordinator Relationship Specialty Start Date End Date Dena Alfonso APRN [address] [place] [address] PCP - General Geriatric Medicine 10/12/16 documented as of this encounter
--- OUTSIDE RECORDS SUMMARY | 2024-02-27 12:43 | XMS_ITS | Encounter Summary ---
Author Organization [facility] Address [facility] [place] [address] Care Team Providers Care Casino Runner Name Role Phone Dena Alfonso APRN Primary Care Provider Encounter Details Date Type Department Care Team (Late Contact Info) Description 06/02/2020 Telephone Dermatology at [address] [place] [address] Avril Schultz LPN Social History Tobacco Use Types Packs/Day Years [...] encounter Miscellaneous Notes * Telephone Encounter - Avril Schultz LPN - 06/02/2020 11:17 AM EST 05/26/2020 Shave biopsy left popliteal fossa Dx: WART Dr. Bowman recommends no further treatment. Reviewed biopsy results and Dr. Girard recommendation with patient. She voiced understanding. documented in this encounter Plan of Treatment Upcoming Encounters Date Type Department Care Team (Late Contact Info) Description 03/27/2024 11:00 AM EDT Office Visit Hematology/Oncology at [address] [phone] El Bernardo MD [facility] [place] [address] Linda Tamayo [address] HEMATOLOGY AND ONCOLOGY [place], [place] [id number] 04/21/2024 8:00 AM EST Appointment Mammography[place] [address] [address] HEMATOLOGY AND ONCOLOGY [place], [place] [phone] documented as of this encounter Visit Diagnoses Not on filedocumented in this encounter Care Teams Casino Runner Relationship Specialty Start Date End Date Dena Alfonso APRN [address] [place], [place] [address] PCP - General Geriatric Medicine 10/12/16 documented as of this encounter
--- OUTSIDE RECORDS SUMMARY | 2024-02-27 12:43 | XMS_ITS | Encounter Summary ---
Author Organization [facility] Address [facility] [place] [address] Care Team Providers Care Video Operator Name Role Phone Dena Alfonso APRN Primary Care Provider [phone] Reason for Visit * Reason Comments Dermatitis right hand Encounter Details Date Type Department Care Team (Late st Contact Info) Description 01/03/2017 2:15 PM EDT Office Visit Dermatology at [address] [phone] Miles Bowman MD [address] [place] [address], [place] [address] Irritant hand dermatitis Social History Tobacco Use Types Packs/Day Years [...] Progress Notes * Miles Bowman MD - 01/03/2017 2:15 PM EDT PROBLEM: Hand eczema. Rebeca follows up after last being seen in 2012. She had been having problems since August with a dermatitis particularly of the finger web spaces of both hands. 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 He was diagnosed apparently with C. difficile so she has been really scrubbing her hands. She has a childhood history of eczema. There is no known family history of psoriasis. She uses Dial soap at home and was using the patient's Softsoap or Ankita soap at his home. She admits she has not been good about wearing gloves. Physical examination reveals a pleasant 56-year-old woman who has web space eczematous dermatitis consistent with frequent hand washing. She does not have any psoriasiform changes. She does have some papular keratosis on the soles of both feet. She has no stigmata of psoriasis on the elbows or knees. She has no pitting of her nails. She has no eczema on the antecubital fossa or popliteal fossa. A/P: Irritant hand dermatitis from frequent hand washing. a. Clearly the patient's work is a trigger for her dermatitis, and her more frequent hand washing due to his diagnosis of C. difficile has likely exacerbated this further. b. Recommend that she use a mild soap such as Cetaphil soap substitute cleansing lotion and do wear gloves, ideally heavy-duty vinyl with cotton glove liners when doing any wet work. Protect hands from soaps, solvents, cleansers, certainly in food preparation from citrus fruits, tomatoes, potatoes, etc. Stressed this repeatedly. Information given on the [employer] from whom she could order gloves. c. Recommend that she obtain CeraVe cream and use it as a regular emollient. d. For hand eczema begin fluocinonide 0.05% ointment, applying on a b.i.d. basis. Forty-five g will be called in with [facility]. 2. Mild hyperkeratosis, feet. a. Likely related to frequently wearing sandals and walking extensively during the summer months. It does not appear to be psoriasiform. b. Recommended urea 20% cream, applying on a daily b.i.d. basis to feet. Eighty g will be called in with 2 refills [facility]. c. Return to clinic here p.r.n. Typewritten handout for controlling hand eczema given. Cc: Dena Alfonso APRN documented in this encounter Plan of Treatment Upcoming Encounters Date Type Department Care Team (Late st [facility] Info) Description 03/27/2024 11:00 AM EDT Office Visit Hematology/Oncology at [address] [phone] El Bernardo MD [facility] [place] [address] [address] HEMATOLOGY AND ONCOLOGY [place], [place] [address] 04/21/2024 8:00 AM EST Appointment Mammography/[place] [address] [address] HEMATOLOGY AND ONCOLOGY [place], [place] [address] documented as of this encounter Visit Diagnoses Diagnosis Irritant hand dermatitis Contact dermatitis and other eczema, due to unspecified cause documented in this encounter Care Teams Video Operator Relationship Specialty Start Date End Date Dena Alfonso APRN [address] [place] [address] PCP - General Geriatric Medicine 10/12/16 documented as of this encounter
--- OUTSIDE RECORDS SUMMARY | 2024-02-27 12:43 | XMS_ITS | Encounter Summary ---
Author Organization [facility] Address [facility] [place] [address] Care Team Providers Care Rehabilitation Physician Name Role Phone Dena Alfonso APRN Primary Care Provider [phone] Encounter Details Date Type Department Care Team (Late st Contact Info) Description 10/15/2016 Telephone Hematology/Oncology at [address] [phone] Car Mathias Social History Tobacco Use Types Packs/Day Years [...] encounter Miscellaneous Notes * Telephone Encounter - Car Mathias - 10/15/2016 10:08 AM EDT Called and spoke to Rebeca to tell her that I have scheduled her mammo at [facility]. I gave her the appointment time and date of 10/23 at 1:30, arrival at 1:15. She was agreeable to this appointment. I informed her that I would send her an appointment card as a reminder. documented in this encounter Plan of Treatment Upcoming Encounters Date Type Department Care Team (Late st Contact Info) Description 03/27/2024 11:00 AM EDT Office Visit Hematology/Oncology at [address] [phone] El Bernardo MD [facility] [place] [address] [address] HEMATOLOGY AND ONCOLOGY [place], [place] [id number] 04/21/2024 8:00 AM EST Appointment Mammography/[place] [address] [address] HEMATOLOGY AND ONCOLOGY [place], [place] [id number] documented as of this encounter Visit Diagnoses Not on filedocumented in this encounter Care Teams Rehabilitation Physician Relationship Specialty Start Date End Date Dena Alfonso APRN [address] [place], [place] [address] PCP - General Geriatric Medicine 10/12/16 documented as of this encounter
--- OUTSIDE RECORDS SUMMARY | 2024-02-27 12:43 | XMS_ITS | Encounter Summary ---
Author Organization [facility] Address [facility] [place] [address] Care Team Providers Care Cluster Bore Operator Name Role Phone Dena Alfonso APRN Primary Care Provider Encounter Details Date Type Department Care Team (Late Contact Info) Description 05/27/2019 Ancillary Procedure [place] [address] Cj Castro Jr., MD [facility] [place] [address] Social History Tobacco Use Types Packs/Day Years [...] 11:00 AM EDT Office Visit Hematology/Oncology at [address] [phone] El Bernardo MD [facility] [place] [address] Linda Tamayo APRN [address] [place] [address] DR [place] [address] 04/21/2024 8:00 AM EST Appointment Mammography/[place] [address] Linda Tamayo APRN [address] [place] [address] DR HEMATOLOGY AND ONCOLOGY [place], [place] [id number] documented as of this encounter Procedures Procedure Name Priority Date/Time Associated Diagnosis Comments FILM LIBRARY STORAGE ONLY DX WRIST Routine 05/27/2019 12:00 AM EST documented in this encounter Results * Film Library- Storage Only DX Wrist (05/27/2019 12:00 AM EST) Narrative [facility] - 06/24/2020 3:03 AM EST This exam is auto-finalizing. It's purpose is for storage only. Cj Castro Jr., MD IMG FILM LI BRARY ORDERABLES [place], [place] documented in this encounter Visit Diagnoses Not on filedocumented in this encounter Care Teams Cluster Bore Operator Relationship Specialty Start Date End Date Dena Alfonso APRN [address] [place] [address] PCP - General Geriatric Medicine 10/12/16 documented as of this encounter
--- OUTSIDE RECORDS SUMMARY | 2024-02-27 12:43 | XMS_ITS | Encounter Summary ---
Author Organization [facility] Address [facility] [place] [address] Care Team Providers Care Content Management Consultant Name Role Phone Dena Alfonso APRN Primary Care Provider Encounter Details Date Type Department Care Team (Late st Contact Info) Description 02/10/2018 Refill Dermatology at [address] [phone] Avril Schultz LPN Social History Tobacco Use [...] AM EDT Office Visit Hematology/Oncology at [address] [phone] El Bernardo MD [facility] [place] [address] iLnda Tamayo SAFETY SCIENTIST [address] [place] [address] [place] [address] 04/21/2024 8:00 AM EST Appointment Mammography/[place] [address] Linda Tamayo APRN [address] [place] [address] DR HEMATOLOGY AND ONCOLOGY [place], [place] [id number] documented as of this encounter Visit Diagnoses Not on filedocumented in this encounter Care Teams Content Management Consultant Relationship Specialty Start Date End Date Dena Alfonso APRN [address] [place], [place] [id number] PCP - General Geriatric Medicine 10/12/16 documented as of this encounter
--- OUTSIDE RECORDS SUMMARY | 2024-02-27 12:43 | XMS_ITS | Encounter Summary ---
Author Organization [facility] Address [facility] [place] [address] Care Team Providers Care Welding Machine Operator Gas Metal Arc Name Role Phone Dena Alfonso APRN Primary Care Provider [phone] Reason for Visit * Reason Comments Medication Refill Encounter Details Date Type Department Care Team (Late Contact Info) Description 12/17/2016 [place] [address] Queenie Warren MD [facility] [place] [address] Social History Tobacco Use Types Packs/Day Years [...] 11:00 AM EDT Office Visit Hematology/Oncology at [address] [phone] El Bernardo MD [facility] [place] [address] Linda Tamayo APRN [address] [place] [address] DR [place] [address] 04/21/2024 8:00 AM EST Appointment Mammography/[place] [address] Linda Tamayo APRN [address] [place] [address] DR HEMATOLOGY AND ONCOLOGY [place], [place] [phone] documented as of this encounter Visit Diagnoses Not on filedocumented in this encounter Care Teams Welding Machine Operator Gas Metal Arc Relationship Specialty Start Date End Date Dena Alfonso APRN [place] [address] PCP - General Geriatric Medicine 10/12/16 documented as of this encounter
--- OUTSIDE RECORDS SUMMARY | 2024-02-27 12:43 | XMS_ITS | Encounter Summary ---
Author Organization [facility] Address [facility] [place] [address] Care Team Providers Care Retail Receiving Clerk Name Role Phone Dena Alfonso APRN Primary Care Provider Encounter Details Date Type Department Care Team (Late Contact Info) Description 05/06/2019 Ancillary Procedure [place] [address] Cj Castro Jr., MD [facility] [place] [address] Social History Tobacco Use Types Packs/Day Years [...] AM EDT Office Visit Hematology/Oncology at [address] [phone] El Bernardo MD [facility] [place] [address] Linda Tamayo APRN [address] [place] [address] DR [place]Y [place] [address] 04/21/2024 8:00 AM EST Appointment Mammography[place] [address] Linda Tamayo APRN [address] [place] [address] DR HEMATOLOGY AND ONCOLOGY [place], [place] [phone] documented as of this encounter Procedures Procedure Name Priority Date/Time Associated Diagnosis Comments FILM LIBRARY STORAGE ONLY DX WRIST Routine 05/06/2019 12:00 AM EST documented in this encounter Results * Film Library- Storage Only DX Wrist (05/06/2019 12:00 AM EST) Narrative [facility] - 06/24/2020 3:02 AM EST This exam is auto-finalizing. It's purpose is for storage only. Cj Castro Jr., MD IMG FILM LI BRARY ORDERABLES [place], [place] documented in this encounter Visit Diagnoses Not on filedocumented in this encounter Care Teams Retail Receiving Clerk Relationship Specialty Start Date End Date Dena Alfonso APRN [address] [place] [address] PCP - General Geriatric Medicine 10/12/16 documented as of this encounter
--- OUTSIDE RECORDS SUMMARY | 2024-02-27 12:43 | XMS_ITS | Encounter Summary ---
Author Organization [facility] [place] [address] Care Team Providers Care Cigarette Catcher Name Role Phone Dena Alfonso APRN Primary Care Provider [phone] Encounter Details Date Type Department Care Team (Late Contact Info) Description 10/24/2016 Orders Only Gy[place] [address] Kelsea Reeves MD [facility] [place] [address] Social History Tobacco Use Types Packs/Day Years [...] as of this encounter Progress Notes * Kelsea Reeves MD - 10/24/2016 6:06 PM EDT Patient having symptoms of herpes outbreak, which she has had previously. Rx sent in for Valcyclovir 500mg BID X 3 days. Patient has not been seen by surface mount technology operator onc since 2014. Recommended she either return to see us or establish a local weather strip installer. documented in this encounter Plan of Treatment Upcoming Encounters Date Type Department Care Team (Late st Contact Info) Description 03/27/2024 11:00 AM EDT Office Visit Hematology/Oncology at [address] [phone] El Bernardo MD [facility] [place] [place] [address] Linda Tamayo, [address] HEMATOLOGY AND ONCOLOGY [place], [place] [address] 04/21/2024 8:00 AM EST Appointment Mammography/[place] [address] Linda Tamayo, [address] HEMATOLOGY AND ONCOLOGY [place], [place] [id number] documented as of this encounter Visit Diagnoses Not on filedocumented in this encounter Care Teams Cigarette Catcher Relationship Specialty Start Date End Date Dena Alfonso APRN [address] [place] [address] PCP - General Geriatric Medicine 10/12/16 documented as of this encounter
--- OUTSIDE RECORDS SUMMARY | 2024-02-27 12:43 | XMS_ITS | Encounter Summary ---
Author Organization [facility] Address [facility] [place] [address] Care Team Providers Care Detective Name Role Phone Dena Alfonso LIZABETH Primary Care Provider [phone] Reason for Referral * Surgical (Routine) - Closed Specialty Diagnoses / Procedures Referred By Mariah tate Referred To Contact Gastroenterology Diagnoses Malignant neoplasm of left breast in female, estrogen receptor negative, unspecified site of breast Has never had colo Procedures [place] Bettie Downing APRN [address] [place] [address] [facility] [address] [place] [address] Referral ID Status Reason Start Date Expiration Date V isits Requested Visits Authorized [id number] Closed Test Only 02/14/2018 02/14/2019 1 1 Encounter Details Date Type Department Care Team (Late st Contact Info) Description 02/14/2018 3:15 PM EDT Office Visit Hematology/Oncology at [address] [phone] Bettie Downing APRN [address] [place] [address] Malignant neoplasm of left breast in female, estrogen receptor negative, unspecified site of breast Social History Tobacco Use Types [...] Sign Reading Time Taken Comments Blood Pressure 128/79 02/14/2018 3:17 PM EDT Pulse 90 02/14/2018 3:17 PM EDT Temperature 36.8 ??C (98.2 ??F) 02/14/2018 3:17 PM ED T Respiratory Rate 18 02/14/2018 3:17 PM EDT Oxygen Saturation 99% 02/14/2018 3:17 PM EDT Inhaled Oxygen Concentration - - Weight 84.4 kg (186 lb) 02/14/2018 3:17 PM EDT Height 152.4 cm (5') 02/14/2018 3:17 PM EDT Body Mass Index 36.33 02/14/2018 3:17 PM EDT documented in this encounter Progress Notes * Bettie Downing, WIRE TWISTING MACHINE OPERATOR - 02/14/2018 3:15 PM EDT Subjective: Patient ID: Rebeca Hernández is a 57 y.o. female. Problem List: 1. Cancer of [...] with heterologous chondroid differentiation Tumor Grade: High Tzathx-Gnbtl-Xkjzahzvpg Score: 9 Tubular Differentiation: 3 Mitotic Rate: [...] carcinoma: 4 Estrogen/Progestin receptors: ER immunoreactivity: Negative UT immunoreactivity: Negative HER2/yeyo expression by FISH: NEGATIVE FOR HER2/YEYO AMPLIFICATION H. s/p adjuvant chemotherapy (AC). Completed 6 cycles 07/25/05. I. Adjuvant radiation therapy, completed 12/07/05. J. 08/04/15: Bilateral mammogram - Negative Breast MRI 08/04/15 - IMPRESSION: New nonmass enhancement in the deep central right breast 6 cm fromthe nipple concerning for malignancy in this BRCA1 positive patient. This is unlikely to be visualized by ultrasound. Mammogram is normal RECOMMENDATION: MRI guided biopsy. LEFT BREAST BIRADS 2. Benign finding RIGHT BREAST BIRADS 4. Suspicious for malignancy 08/17/15 - MRI guided bx right breast [...] same BRCA1 alteration found in her mother ([id number]). Prophylactic BSO 04/2013. Path - Right and left fallopian tubes and ovaries (bilateral salpingo-oophorectomy): No evidence of malignancy. 3. 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 She has undergone genetic testing and is BRCA-1 positive. In 04/2013, she elected to under prophylactic BSO. The path did not show evidence of malignancy. Breast MRI in 08/02 showed a suspicious area of enhancement in the right breast. On 08/16/15 she underwent MRI guided bx. The path report is above, there was no evidence of malignancy. On presentation today, she has no new issues, she is now 12yrs out from completion of treatment. Mother 82yrs old had 2nd cancer in other breast with subsequent mastectomy that did not go smoothly. Therefore pt decided against prophylactic mastectomy. Review of Systems Constitutional: Negative for activity change, appetite change, chills, fatigue, fever and unexpected weight change. Eyes: Negative. Respiratory: Negative. Cardiovascular: Negative. Gastrointestinal: Negative. Genitourinary: Negative. Musculoskeletal: Positive for back pain. Neurological: Negative. Psychiatric/Behavioral: Negative. BP 128/79 (Patient Position: Sitting) Pulse 90 Temp 36.8 ??C (98.2 ??F) Resp 18 Ht 152.4 cm(5') Wt 84.4 kg (186 lb) SpO2 99% BMI 36.33 kg/m2 Wt Readings from Last 3 Encounters: 02/14/18 84.4 kg (186 lb) 12/05/17 86.4 kg (190 lb 8 oz) 07/02/17 83.9 kg (185 lb) Objective: Physical Exam Constitutional: She is oriented to person, place, and time. She appears well- developed and well-nourished. No distress. HENT: Head: Normocephalic and atraumatic. Mouth/Throat: Oropharynx is clear and moist. No oropharyngeal exudate. Eyes: EOM are normal. Pupils are equal, round, and reactive to light. No scleral icterus. Neck: Normal range of motion. Neck supple. Cardiovascular: Normal rate, regular rhythm and normal heart sounds. Exam reveals no gallop and no friction rub. No murmur heard. Pulmonary/Chest: Effort normal and breath sounds normal. No respiratory distress. She has no wheezes. She has no rales. Abdominal: Soft. Bowel sounds are normal. She exhibits no distension and no mass. There is no hepatosplenomegaly. There is no tenderness. There is no guarding. Genitourinary: Genitourinary Comments: Breast exam: Well healed incision in upper portion of left breast. Some mild thickening of the skin on the left and no masses in either breast. Musculoskeletal: Normal range of motion. She exhibits no edema or tenderness. Lymphadenopathy: She has no cervical adenopathy. She has no axillary adenopathy. Right: No supraclavicular adenopathy present. Left: No supraclavicular adenopathy present. Neurological: She is alert and oriented to person, place, and time. No cranial nerve deficit. Coordination normal. Skin: Skin is warm and dry. No rash noted. No erythema. Psychiatric: She has a normal mood and affect. Her behavior is normal. Vitals reviewed. Labs: none today Mammogram 01/10/18 TECHNIQUE: CC and MLO views were obtained of both breasts. Computer aided detection was used. 3D tomosynthesis images were obtained in addition to 2D images FINDINGS: Breast density:There are scattered areas of fibroglandular density. There are no suspicious microcalcifications, masses, or areas of distortion. There are post treatment changes in the left breast. ?? CONCLUSION: No mammographic evidence of malignancy. RECOMMENDATION: Routine screening. BIRADS CATEGORY 2: BENIGN FINDINGS Assessment and Plan: Ms. Hernández is a 54 yo female with a h/o left breast cancer as above. 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 It was hormone receptor and her-2/yeyo negative. She received adjuvant chemotherapy with AC and radiation and completed all therapy in 11/20. She had screening mammogram and MRI on 08/04/15. The mammogram was negative but the MRI showed a suspicious 6 mm area of enhancement in the right breast, apparently without a discrete mass, new compared with the prior MRI from 06/30. An MRI guided bx was done on 08/16/15. This showed fibrocystic changes, usual ductal hyperplasia and focal stromal PASH. There was no evidence of malignancy. No specificintervention is required for these findings. A f/u right breast MRI was recommended in [address] Armstrong. Fwup done 01/10/18 is negative. She is now 12 yrs out from her treatment for breast cancer. She has not had a colo so I will refer her for that, and she can't remember her last PAP smear so I asked her to followup with her WIRE STOCKKEEPER provider about that. RTC 1yr no labs. Mammo to be done in November- Doesn't have to be MRI. As noted, she is positive for BRCA-1 mutation. She is s/p prophylactic oophorectomy. Testing for her daughter was discussed previously who is in her early 20s. The patient says they have discussed itand she does not want to be tested now but may change her mind. Bettie Downing, MSN, MANAGER PRIMARY, AOCN Hematology/Oncology Nurse Practitioner [place], [place] [phone] documented in this encounter Plan of Treatment Upcoming Encounters Date Type Department Care Team (Late st Contact Info) Description 03/27/2024 11:00 AM EDT Office Visit Hematology/Oncology at [address] [phone] El Bernardo MD [facility] [place] [address] Linda Tamayo [address] HEMATOLOGY [place] [address] 04/21/2024 8:00 AM EST Appointment Mammography/[place] [address] [address] HEMATOLOGY AND ONCOLOGY [place], [place] [address] Scheduled Referrals Name Type Priority Associated Diagnoses Order Schedule Referral to Gastroenterology Outpatient Referral Routine Malignant neoplasm of left breast in female, estrogen receptor negative, unspecified site of breast Ordered: 02/14/2018 documented as of this encounter Visit Diagnoses Diagnosis Malignant neoplasm of left breast in female, estrogen receptor negative, unspecified site of breast documented in this encounter Care Teams Detective Relationship Specialty Start Date End Date Dena Alfonso APRN [address] [place] [address] PCP - General Geriatric Medicine 10/12/16 documented as of this encounter
--- OUTSIDE RECORDS SUMMARY | 2024-02-27 12:43 | XMS_ITS | Encounter Summary ---
Author Organization [facility] Address [facility] [place] [address] Care Team Providers Care Wood Gluer Name Role Phone Dena Alfonso APRN Primary Care Provider [phone] Encounter Details Date Type Department Care Team (Late st Contact Info) Description 05/27/2020 9:00 AM EST Office Visit Dermatology at [address] [phone] Miles Bowman MD [address] [place] [address], [facility] [address] Seborrheic keratosis; Irritant hand dermatitis Social History Tobacco Use [...] Progress Notes * Miles Bowman MD - 05/27/2020 9:00 AM EST Problem: 1. Left popliteal fossa skin lesion 2. Hand eczema currently controlled with betamethasone dipropionate ointment and CeraVe cream Rebeca follows up and is noted use in the recent months of development of a new rough bump on the left popliteal fossa. She tried wart remover and she tried clipping it off to get rid of but it has not gone away. She would also like refills of her betamethasone ointment which is worked well for her. She continues to continue to be involved in healthcare must wash her hands frequently. Physical examination reveals a pleasant 59-year-old woman who has a verrucous papule on the left popliteal fossa. Her hands today are free of any significant eczema and she is not sure why they are so much better now than what they used to be. Assessment plan: Probable verruca vulgaris left posterior fossa 1. Today site was anesthetized and removed shave biopsy 2. Wound care ointment and Band-Aid placed 3. Wound care instructions and supplies given 4. We will call the patient with her biopsy results in 1 week. 5. RTC prn. History of eczematous hand dermatitis 1. In past this was noted to be an irritant hand dermatitis with psoriasiform changes also with foot involvement 2. Continue recommendations from July 2018 note 3. Refill given for her betamethasone dipropionate ointment apply on a daily twice daily basis as needed for her hand eczema. Dispense 45 g tube with 3 refills. CC: Dena Alfonso APRN documented in this encounter Plan of Treatment Upcoming Encounters Date Type Department Care Team (Late st Contact Info) Description 03/27/2024 11:00 AM EDT Office Visit Hematology/Oncology at [address] [phone] El Bernardo MD [facility] [place] [address] Linda Tamayo [address] HEMATOLOGY [address] ONCOLOGY [place]ANE, [place] [address] 04/21/2024 8:00 AM EST Appointment Mammography/[place] [address] Linda Tamayo [address]ATOLOGY [address]OGY [place], [place] [address] documented as of this encounter Visit Diagnoses Diagnosis Seborrheic keratosis Other seborrheic keratosis Irritant hand dermatitis Contact dermatitis and other eczema, due to unspecified cause documented in this encounter Care Teams Wood Gluer Relationship Specialty Start Date End Date Dena Alfonso APRN [address] [place] [address] PCP - General Geriatric Medicine 10/12/16 documented as of this encounter
--- OUTSIDE RECORDS SUMMARY | 2024-02-27 12:43 | XMS_ITS | Encounter Summary ---
Author Organization [facility] Address [facility] [place] [address] Care Team Providers Care Sap Abap Developer Name Role Phone Dena Alfonso APRN Primary Care Provider [phone] Reason for Visit * Reason Comments Low Back Pain * Consultation (Routine) - Closed Specialty Diagnoses / Procedures Referred By Mariah tate Referred To Contact Orthopaedics Diagnoses Chronic low back pain/ ask about imaging Catherine Curry APRN [address] [place] [address] [facility] [place] [address] [place] [address] Referral ID Status Reason Start Date Expiration Date V isits Requested Visits Authorized [id number] Closed Consult, Test & Treat Connection Center 02/15/2017 02/15/2018 1 1 Encounter Details Date Type Department Care Team (Late st Contact Info) Description 03/11/2017 3:00 PM EDT Office [place] [address] Noé Ayala PA [facility] [place] [address] Degenerative scoliosis in adult patient Social History Tobacco Use Types Packs/Day Years [...] Sign Reading Time Taken Comments Blood Pressure 135/94 03/11/2017 2:50 PM EDT Pulse - - Temperature - - Respiratory Rate - - Oxygen Saturation - - Inhaled Oxygen Concentration - - Weight 82.1 kg (181 lb) 03/11/2017 2:50 PM EDT Height 167.6 cm (5' 6) 03/11/2017 2:50 PM EDT Body Mass Index 29.21 03/11/2017 2:50 PM EDT documented in this encounter Progress Notes * Noé Ayala PA - 03/11/2017 3:00 PM EDT Subjective: Rebeca Hernández is a 56-year-old female seen today for chief complaint of chronic backpain located over the midline of the mid lumbar to low lumbosacral region over several years. She does not report any lower extremity radiation of pain, numbness, weakness. She finds symptoms improvesomewhat with resting, laying flat. She otherwise notes worsening with bending, lifting, prolonged upright activities no more than 10-15 minutes. She mentions being limited to the point that she cannot do chores around her yard or household activities such as vacuuming, and dishes for more than a few minutes without having to sit down or lie down progress. Her prior treatments have included meloxicam 15 mg without much response. She otherwise continues to use a heating pad with some partial benefit. She mentions doing physical therapy with [facility], which apparently appears to involve some aspects of conditioning in exercises for her back but she found was not especially helpful. She does not report prior spine surgeries or injection procedures. She denies tobacco or alcohol use. 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 She lives alone with a dog. Review of systems is negative for GI, , constitutional symptoms. Objective: This is a pleasant mildly overweight 56-year-old female appears her stated age and is inno acute distress. Her gait is normal. She is able to toe walk and heel walk without weakness. She stands with evidence of Of left-sided lumbar curvature, but otherwise level shoulders and pelvis. She is able to flex about 80??, extend only about 10?? with some increasing back pain at endrange extension. Motor and sensory examination are entirely normal. Reflexes are symmetric +2 at both knees and both ankles. Negative straight leg raising bilaterally. There is no clonus or Babinski. Painless hip range of motion. Palpable peripheral pulses. Plain x-rays of the lumbar spine performed on 07/2015 was reviewed with her today. On the AP view, there is evidence of left-sided lumbar curvature, centered around L3/L4. There is primarily with findings of degenerative change, with disc space narrowing and retrolisthesis L2-L3, and endplate sclerosis, significant disc space narrowing L3-L4. There is also noted right-sided disc space collapse L4-L5. There does not appear to be significant rotational deformity. Assessment/plan: Rebeca Hernández is a 56-year-old female seen today for chief complaint of chronicback pain, without much evidence of lower extremity involvement. She does not appear to have concerning signs to suggest lumbosacral radiculopathy or spinal stenosis with claudication features. Her primary issues with regards to her back pain, related to degenerative lumbar scoliosis. I did discussher case and imaging with one of our spine deformity surgeons, Sorin Mcallister M.D. I discussed with Rebeca, various options of treatment, such as medications, injection approaches, physical therapy, rehabilitation. While she did show some interest in our functional islam program, she is not really able to attend this due to her issues with distance away and not being able to take time off from her part-time job. I advised her that she may instead benefit from consideringof structured outpatient physical conditioning program. This is quite indicated, as her primary is not primarily pain intensity but physical limitations related to this. Per my discussion with Dr. Mcallister, surgery is not a really good option as this would be extensive and require fusion from L2-L5. Her outcomes would also be suboptimal with primary symptoms of back pain instead of lower extremitypain. She appears to have done outpatient conditioning to some extent with her prior physical therapists at [facility] without much success. She discussed briefly with Lissette [facility] regarding options, and they will plan on discussing her case with Yo Yuen PT our spine center physical therapist to see if she may instead benefit from doing an outpatient spine-focused conditioning program, with components of Jagdeep therapy. documented in this encounter Plan of Treatment Upcoming Encounters Date Type Department Care Team (Late st Contact Info) Description 03/27/2024 11:00 AM EDT Office Visit Hematology/Oncology at [address] [address] El Bernardo MD [facility] [place] [address] Linda Tamayo, [address] HEMATOLOGY AND ONCOLOGY [place], [place] [address] 04/21/2024 8:00 AM EST Appointment Mammography/[place] [address] Linda Tamayo, [address] HEMATOLOGY AND ONCOLOGY [place], [place] [address] documented as of this encounter Visit Diagnoses Diagnosis Degenerative scoliosis in adult patient documented in this encounter Care Teams Sap Abap Developer Relationship Specialty Start Date End Date Dena Alfonso APRN [address] [place] [address] PCP - General Geriatric Medicine 10/12/16 documented as of this encounter
--- OUTSIDE RECORDS SUMMARY | 2024-02-27 12:43 | XMS_ITS | Encounter Summary ---
Author Organization [facility] [place] [address] Care Team Providers Care Manager Of Application Development Name Role Phone Dena Alfonso APRN Primary Care Provider [phone] Reason for Referral * Physical Therapy (Routine) - Closed Specialty Diagnoses / Procedures Referred By Contac t Referred To Contact Physical Therapy Diagnoses Vaginal prolapse Janice Jacques APRN [facility] DR OBSTETRICS [place] [address] Marianela Bosch, PT [address] [place] [address] Referral ID Status Reason Start Date Expiration Date V isits Requested Visits Authorized [id number] Closed Evaluate and Treat 07/02/2017 12/29/2017 12 12 Reason for Visit * Reason Comments Establish Care Uterine Prolapse * Consultation (Routine) - Closed Specialty Diagnoses / Procedures Referred By Contac t Referred To Contact Obstetrics and Gynecology Diagnoses Female genital prolapse, unspecified Dena Alfonso APRN [address] [place] [address] [facility] [address] [place] [address] Referral ID Status Reason Start Date Expiration Date V isits Requested Visits Authorized [id number] Closed Consult, Test & Treat Connection Center 06/24/2017 06/24/2018 1 1 Encounter Details Date Type Department Care Team (Late st Contact Info) Description 07/02/2017 3:15 PM EST Office Visit Obstetrics [place] [address] Janice Jacques, MARKETING AMBASSADOR [facility] [place] [address] Vaginal prolapse; Fitting and adjustment of pessary Social History Tobacco Use Types Packs/Day Years [...] Sign Reading Time Taken Comments Blood Pressure 145/93 07/02/2017 3:18 PM EST Pulse 74 07/02/2017 3:18 PM EST Temperature - - Respiratory Rate 16 07/02/2017 3:18 PM EST Oxygen Saturation 100% 07/02/2017 3:18 PM EST Inhaled Oxygen Concentration - - Weight 83.9 kg (185 lb) 07/02/2017 3:18 PM EST p t states Height 167.6 cm (5' 6) 07/02/2017 3:18 PM EST Body Mass Index 29.86 07/02/2017 3:18 PM EST documented in this encounter Progress Notes * Janice Jacques, MARKETING AMBASSADOR - 07/02/2017 3:15 PM EST Rebeca Hernández [id number] Dena Alfonso, LIZABETH 07/02/2017 Gynecologic Visit Patient Active Problem List Diagnosis Code ??? Breast cancer C50.919 ??? Depression F32.9 ??? Chest pain R07.9 ??? Cardiomyopathy I42.9 ??? GERD (gastroesophageal reflux disease) K21.9 ??? Palpitations R00.2 ??? History of left knee surgery Z98.890 ??? BRCA1 positive Z15.01, Z15.02 ??? Nevus D22.9 ??? Environmental allergies Z91.09 ??? Chronic allergic rhinitis J30.9 ??? Allergic rhinoconjunctivitis J30.9, H10.10 ??? Diabetes mellitus type 2, diet-controlled E11.9 ??? Allergic rhinoconjunctivitis of both eyes J30.9, H10.13 ??? Irritant hand dermatitis L24.9 SUBJECTIVE: Rebeca Cowart a 56 y.o.woman postmenopausal who presents today for pessary refitting. Shewas initially seen by a photocopying equipment repairer in [facility]. She was offered a pessary or surgery. She does not want surgery and pessary isn't quite right yet she states. She also wants to know what stage my prolapse is Seeking more information. She states that the open ring #2 feels small, moves around a lot and doesn't provide enough support. The #3 ring with support she states made her feel like she had menstrual cramps. She has worn a diaphragm in the past. Outpatient Encounter Prescriptions as of 07/02/2017 Medication Sig Dispense Refill ??? valACYclovir (VALTREX) 500 mg Tablet Take 1 tablet by mouth 2 times daily. 6 tablet 0 ??? estradiol (VAGIFEM) [address] 1 tablet vaginally twice a week. (Patient taking differently: Place 10 mcg vaginally three times a week.) 8 tablet 11 ??? Cholecalciferol, Vitamin D3, (VITAMIN D-3) 2,000 unit Capsule Take by mouth. ??? EPINEPHrine (EPIPEN) 0.3 mg/0.3 mL (1:1,000) Auto-Injector Inject 0.3 mLs into the muscle once as needed (difficulty breathing, throat swelling, loss of consciousness) for up to 1 dose. Call 911.2 each 1 ??? [DISCONTINUED] meloxicam (MOBIC) 15 mg Tablet Take 15 mg by mouth daily. ??? cetirizine (ZYRTEC) 10 mg Tablet Take 10 mg by mouth daily as needed for Allergies. Reported on10/12/2016 ??? [DISCONTINUED] fexofenadine (JANINA) 180 mg Tablet 1 tab daily prn allergies.Take 1 tab twice daily the day prior and day of receiving allergy shots. 30 tablet 11 ??? PATANOL 0.1 % Drops INSTILL ONE DROP TO THE AFFECTED EYE(S) TWICE A DAY NEEDED FOR ALLERGIES(Patient not taking: Reported on 07/02/2017) 5 mL 5 No facility-administered encounter medications on file as of 07/02/2017. Allergies as of 07/02/2017 - Review Complete 07/02/2017 Allergen Reaction Noted ??? Tramadol Hives 03/18/2013 ??? Carvedilol Rash 09/05/2011 ??? Iodine Hives and Itching 04/28/2014 ??? Morphine Itching 08/08/2011 ??? Codeine phosphate Rash ??? Penicillins Rash ??? Vicodin [hydrocodone-acetaminophen] Rash 10/28/2012 OBJECTIVE: BP (!) 145/93 Pulse 74 Resp 16 Ht 167.6 cm (5' 6) Wt 83.9 kg (185 lb) Comment: pt states SpO2 100% BMI 29.86 kg/m2 Exam: Vulva: normal Vagina: normal, #2 open ring removed, small. Cervix: normal Uterus: AV, NSSC Adnexa: no masses, non tender Pelvic Organ Prolapse Quantification (POP-Q): Aa 0 Ba C -7 Gh Rest strain 2/3 PB Rest strain 2.5/2.5 TVL 10 Ap -1 Bp -1 D -8 ASSESSMENT: Stage 2 uterovaginal prolapse, anterior and posterior vaginal wall prolapse, anterior dominating PLAN: Reviewed prolapse pictures. Reviewed options of surgical intervention and pessary Refit with an open ring #3 which seems to be a better fit. She will try it and see how it feels. She is able to insert and remove on her own. She is interested in PT- a referral was sent to [facility] in [facility], gel is very weak. documented in this encounter Plan of Treatment Upcoming Encounters Date Type Department Care Team (Late st Contact Info) Description 03/27/2024 11:00 AM EDT Office Visit Hematology/Oncology at [address] [address] El Bernardo MD [facility] [place] [address] Linda Tamayo APRN [address] [place] [address] DR HEMATOLOGY AND ONCOLOGY [place], [place] [address] 04/21/2024 8:00 AM EST Appointment Mammography/[place] [address] Linda Tamayo APRN [address] [place] [address] DR HEMATOLOGY AND ONCOLOGY [place], [place] [id number] Scheduled Referrals Name Type Priority Associated Diagnoses Orde r Schedule Referral to Physical Therapy Outpatient Referral Routine Vaginal prolapse Ordered: 07/02/2017 documented as of this encounter Procedures Procedure Name Priority Date/Time Associated Diagnosis Comments BLADDER SCANNER Routine 07/02/2017 Vaginal prolapse documented in this encounter Results * Bladder Scanner (07/02/2017) Bladder Scan (mL) 45 mL Janice Jacques APRN URO PROC W/O RFL O RDERABLES documented in this encounter Visit Diagnoses Diagnosis Vaginal prolapse Unspecified prolapse of vaginal up Fitting and adjustment of pessary Fitting and adjustment of other device documented in this encounter Care Teams Manager Of Application Development Relationship Specialty Start Date End Date Dena Alfonso APRN [address] [place] [address] PCP - General Geriatric Medicine 10/12/16 documented as of this encounter
--- OUTSIDE RECORDS SUMMARY | 2024-02-27 12:43 | XMS_ITS | Encounter Summary ---
Author Organization Formerly [facility] Address [facility] [place] [address] Care Team Providers Care Cigarette Making Machine Operator Name Role Phone Dena Alfonso APRN Primary Care Provider [phone] Reason for Referral * Diagnostic Test (Routine) - Closed Specialty Diagnoses / Procedures Referred By Contac t Referred To Contact Cardiology Diagnoses Other cardiomyopathy Procedures Echocardiogram Transthoracic([facility] or [facility]) Jose Govea MD [facility] [place] [address] [facility] [place] [address] Referral ID Status Reason Start Date Expiration Date V isits Requested Visits Authorized [id number] Closed Specialty Service Requested 04/06/2020 04/06/2021 1 1 Encounter Details Date Type Department Care Team (Latest Contact Info) Description 04/06/2020 3:20 PM EDT TH Visit (TeleHealth) Cardiology at [address] [phone] Jose Govea MD [facility] [place] [address] Other cardiomyopathy Social History Tobacco Use Types Packs/Day Years [...] as of this encounter Progress Notes * Jose Govea MD - 04/06/2020 3:20 PM EDT HPI: Rebeca Hernández is a 59 y.o. year old female with a pmhx of brca and nonischemic cardiomyopathy, (normal heart catheterization in 2011) coming for evaluation. Originally, echocardiogram was read outas 40%, but repeat echocardiogram performed in May 2015 demonstrated an ejection fraction of 65%. She has a history of normal heart [...] file Occupational History ??? Not on file Social Needs ??? Financial resource strain: Not on file ??? Food insecurity Worry: Not on file Inability: Not on file ??? Transportation needs Medical: Not on file Non-medical: Not on file Tobacco Use ??? Smoking status: Never Smoker ??? Smokeless tobacco: Never Used ??? Tobacco comment: only exposure was as a child Substance and Sexual Activity ??? Alcohol use: No Comment: Occasionally ??? Drug use: No ??? Sexual activity: Not Currently Lifestyle ??? Physical activity Days per week: Not on file Minutes per session: Not on file ??? Stress: Not on file Relationships ??? Social connections Talks on phone: Not on file Gets together: Not on file Attends sikhism service: Not on file Active member of club or organization: Not on file Attends meetings of clubs or organizations: Not on file Relationship status: Not on file ??? Intimate partner violence Fear of current or ex partner: Not on file Emotionally abused: Not on file Physically abused: Not on file Forced sexual activity: Not on file Other Topics Concern ??? Not on file Social History Narrative ??? Not on file FAMHX Family History Problem Relation Age of Onset ??? Breast Cancer Other ??? Allergic Rhinitis Father ??? Breast Cancer Maternal Grandmother ??? Breast Cancer Mother ??? Asthma Neg Hx ROS Negative for blood in stool or urine. No fevers or chills. No recent syncope. Otherwise all other systems were reviewed and found to be negative. Physical Examination No data found. General: no acute distress Behavioral: Alert and [...] strength grossly = bilaterally Assessement and Plan: 55 year old female with brca, s/p chemo and radiation in 2004, history of reduced LV function but recovered to 60-65% with normal strain. 1. CM -- resolved, normal EF and and normal strain. Not on beta dmitry secondary to allergies and need for allergy shots. Repeat echocardiogram to evaluate lvef. 2. Sob -- stable. 3. Follow up 1 year documented in this encounter Plan of Treatment Upcoming Encounters Date Type Department Care Team (Late st Contact Info) Description 03/27/2024 11:00 AM EDT Office Visit Hematology/Oncology at [address] [phone] El Bernardo MD [facility] [place] [address] HEMATOLOGY AND ONCOLOGY [place], [place] [id number] 04/21/2024 8:00 AM EST Appointment Mammography/[place] [address] [address] [place] [address] documented as of this encounter Results * ECHO COMPLETE (07/14/2020 1:09 PM EST) EF 66 HEARTLAB SYSTEM Anatomical Region Laterality Modality Other 07/14/2020 Narrative 07/14/2020 1:54 PM EST Procedure: ?Transthoracic Echocardiogram Patient: ?BRANDON Farooq ?(Age): 1960(59y) Med Rec#: ? [id number] ?Sex: ?F ? Site Loc: ? [facility] ?Ht / Wt: ??165(cm)/86(kg) Pt. Loc: ?Echo Lab ?BSA: ?1.93 Study Date: ?? 07/14/2020 ?Pt. Type: Outpatient Tape: ? Referring: [facility] Reading: Aroldo David Chapin ??([id number]) Business Planner: Saloni Valdivia Diagnosis: *Other cardiomyopathies (I42.8) BP: ? 137/84 SUMMARY: 1. There is moderate dilatation of the [...] mmHg. 4. There is no valve disease. 5. See remainder of report for additional findings. Findings ? : Study Quality: ? Adequate Left Ventricle: ? The left ventricular chamber size is normal. ?Left ventricular wall thickness is normal. ?There is normal global left ventricular systolic function. ?The quantitative left ventricular ejection fraction by biplane Jerez's method is 59%.GLS -17% ?The quantitative left ventricular ejection fraction by 3-D rendering is 66%. ?There are no left ventricular segmental wall motion abnormalities. ?The left ventricular diastolic filling pattern is consistent with impaired LV relaxation. ?Doppler assessment is consistent with normal left sided filling pressure. Left Atrium: ? The left atrium is normal in size.(25 ml/m2) Right Ventricle: ? Right ventricular chamber size, wall thickness, and systolic function are within normal limits. ?The estimated pulmonary artery systolic pressure is 25 mmHg. ?The estimated right atrial pressure is 8 mmHg. Right Atrium: ? The right atrium appears normal. Aortic Valve: ? The aortic valve is tricuspid. ?Systolic excursion of the aortic valve is normal. ?There is aortic annular calcification. ?There is no evidence of aortic valve stenosis. ?There is no evidence of aortic regurgitation. Mitral Valve: ? The mitral valve appears normal in structure and function. ?There is trace mitral regurgitation present. Tricuspid Valve: ? The tricuspid valve appears normal in structure and function. ?There is trace tricuspid regurgitation present. Pulmonic Valve: ? The pulmonic valve appears normal in structure and function. Pericardium: ? The pericardium appears normal and there is no evidence of a pericardial effusion. Aorta: ? There is moderate dilatation of the aortic root.(4.6cm) ?There is mild dilatation of the ascending aorta.3.8 cm Pulmonary Artery: ? The main pulmonary artery appears normal. Venous: ? The inferior vena cava appears dilated. ?There is a greater than 50% respiratory change in the inferior vena cava dimension. Misc: ? There is no hemodynamically significant valve disease. ?See remainder of report for additional findings. ?Two-dimensional echo, spectral Doppler and color Doppler performed. Chambers 2D ?Value ?Units (Range) ? IVSd (2D) ? 0.99 ? cm ? LVPWd (2D) ?1.16 ? cm ? IVS:LVPW ratio (2D) 0.85 ? ratio ? RWT (2D) ?0.5 ?ratio ? RWT PW (2D) ? 0.54 ? ratio ? LVIDd (2D) ?4.33 ? cm ? LVIDs (2D) ?2.89 ? cm ? LVIDd (2D) index ?2.24 ? cm/m2 ? LVIDs (2D) index ?1.5 ?cm/m2 ? LV FS (2D) ?33.12 ?% ? EF Teichholz (2D) ?? 61.99 ?% ? Ao root diameter (2D4.6 ?cm (2.1 - 3.6) ? Ascending Ao ?3.8 ?cm (2 - 3.5) ? Volumes/Mass ?Value ?Units (Range) ? LA Area 4 CH ?16.1 ? cm2 (<21) ? LA ESV BP (A/L) inde24.97 ?ml/m2 ? RA AREA 4CH ? 14.2 ? cm2 ? LV ESV SP 4CH (MOD) 34.21 ?ml ? LV ESV SP 2CH (MOD) 44.52 ?ml ? LV EDV BP ? 96.09 ?ml ? LV ESV BP ? 39.55 ?ml ? LV EDV BP index ? 49.72 ?ml/m2 ? LV ESV BP index ? 20.46 ?ml/m2 ? BP EF (MOD) ? 58.84 ?% ? LV mass (2D) ?159.51 ? g ? LV mass (2D) index ??82.53 ?g/m2 ? Diastolic/Systolic Function ?Value ?Units (Range) ? MV E-wave Vmax ?0.54 ? m/sec ? MV deceleration ueuq064.06 ? msec ? MV A-wave Vmax ?0.68 ? m/sec ? MV E:A ratio ?0.79 ? ratio ? LV septal e' Vmax ?? 0.05 ? m/sec ? LV lateral e' Vmax ??0.05 ? m/sec ? LV average e' Vmax ??0.05 ? m/sec ? LV E:e' septal ratio10.82 ?ratio ? LV E:e' lateral rati10.82 ?ratio ? LV average E:e' rati10.82 ?ratio ? Tricuspid Valve ?Value ?Units (Range) ? TR Vmax ? 2.07 ? m/sec ? TR peak gradient ?17.14 ?mmHg ? RAP ? 8 ?mmHg ? RVSP ?25 ? mmHg ? Wall Motion: Segment Name ?Rest ? Base-Anteroseptal ?? Normal ? Base-Anterior ? Normal ? Base-Anterolateral ??Normal ? Base-Posterolateral Normal ? Base-Inferior ? Normal ? Base-Inferoseptal ?? Normal ? Mid-Anteroseptal ?Normal ? Mid-Anterior ?Normal ? Mid-Anterolateral ?? Normal ? Mid-Posterolateral ??Normal ? Mid-Inferior ?Normal ? Mid-Inferoseptal ?Normal ? Spencer-Septal ? Normal ? Spencer-Anterior ? Normal ? Spencer-Lateral ?Normal ? Spencer-Inferior ? Normal ? Spencer-Tip ?Normal ? This report has been electronically signed by: David Kendrick MD ? 07/14/2020 13:53:16 Images reviewed and interpretation verified [facility] Cardiac Ultrasound Laboratory Procedure Note David Kendrick MD - 07/14/2020 Procedure: Transthoracic Echocardiogram Patient: BRANDON HERRERA(Age): 1960(59y) Med Rec#: [id number] Sex: F Site Loc: [facility] Ht / Wt: 165(cm)/86(kg) Pt. Loc: Echo Lab BSA: 1.93 Study Date: 07/14/2020 Pt. Type: Outpatient Tape: Referring: [facility] Reading: David Kendrick ([id number]) Business Planner: Saloni Valdivia Diagnosis: *Other cardiomyopathies (I42.8) BP: 137/84 SUMMARY: 1. There is moderate dilatation of the [...] mmHg. 4. There is no valve disease. 5. See remainder of report for additional findings. Findings : Study Quality: Adequate Left Ventricle: The left ventricular chamber size is normal. Left ventricular wall thickness is normal. There is normal global left ventricular systolic function. The quantitative left ventricular ejection fraction by biplane Jerez's method is 59%.GLS -17% The quantitative left ventricular ejection fraction by 3-D rendering is 66%. There are no left ventricular segmental wall motion abnormalities. The left ventricular diastolic filling pattern is consistent with impaired LV relaxation. Doppler assessment is consistent with normal left sided filling pressure. Left Atrium: The left atrium is normal in size.(25 ml/m2) Right Ventricle: Right ventricular chamber size, wall thickness, and systolic function are within normal limits. The estimated pulmonary artery systolic pressure is 25 mmHg. The estimated right atrial pressure is 8 mmHg. Right Atrium: The right atrium appears normal. Aortic Valve: The aortic valve is tricuspid. Systolic excursion of the aortic valve is normal. There is aortic annular calcification. There is no evidence of aortic valve stenosis. There is no evidence of aortic regurgitation. Mitral Valve: The mitral valve appears normal in structure and function. There is trace mitral regurgitation present. Tricuspid Valve: The tricuspid valve appears normal in structure and function. There is trace tricuspid regurgitation present. Pulmonic Valve: The pulmonic valve appears normal in structure and function. Pericardium: The pericardium appears normal and there is no evidence of a pericardial effusion. Aorta: There is moderate dilatation of the aortic root.(4.6cm) There is mild dilatation of the ascending aorta.3.8 cm Pulmonary Artery: The main pulmonary artery appears normal. Venous: The inferior vena cava appears dilated. There is a greater than 50% respiratory change in the inferior vena cava dimension. Misc: There is no hemodynamically significant valve disease. See remainder of report for additional findings. Two-dimensional echo, spectral Doppler and color Doppler performed. Chambers 2D Value Units (Range) IVSd (2D) 0.99 cm LVPWd (2D) 1.16 cm IVS:LVPW ratio (2D) 0.85 ratio RWT (2D) 0.5 ratio RWT PW (2D) 0.54 ratio LVIDd (2D) 4.33 cm LVIDs (2D) 2.89 cm LVIDd (2D) index 2.24 cm/m2 LVIDs (2D) index 1.5 cm/m2 LV FS (2D) 33.12 % EF Teichholz (2D) 61.99 % Ao root diameter (2D4.6 cm (2.1 - 3.6) Ascending Ao 3.8 cm (2 - 3.5) Volumes/Mass Value Units (Range) LA Area 4 CH 16.1 cm2 (<21) LA ESV BP (A/L) inde24.97 ml/m2 RA AREA 4CH 14.2 cm2 LV ESV SP 4CH (MOD) 34.21 ml LV ESV SP 2CH (MOD) 44.52 ml LV EDV BP 96.09 ml LV ESV BP 39.55 ml LV EDV BP index 49.72 ml/m2 LV ESV BP index 20.46 ml/m2 BP EF (MOD) 58.84 % LV mass (2D) 159.51 g LV mass (2D) index 82.53 g/m2 Diastolic/Systolic Function Value Units (Range) MV E-wave Vmax 0.54 m/sec MV deceleration ewyo251.06 msec MV A-wave Vmax 0.68 m/sec MV E:A ratio 0.79 ratio LV septal e' Vmax 0.05 m/sec LV lateral e' Vmax 0.05 m/sec LV average e' Vmax 0.05 m/sec LV E:e' septal ratio10.82 ratio LV E:e' lateral rati10.82 ratio LV average E:e' rati10.82 ratio Tricuspid Valve Value Units (Range) TR Vmax 2.07 m/sec TR peak gradient 17.14 mmHg RAP 8 mmHg RVSP 25 mmHg Wall Motion: Segment Name Rest Base-Anteroseptal Normal Base-Anterior Normal Base-Anterolateral Normal Base-Posterolateral Normal Base-Inferior Normal Base-Inferoseptal Normal Mid-Anteroseptal Normal Mid-Anterior Normal Mid-Anterolateral Normal Mid-Posterolateral Normal Mid-Inferior Normal Mid-Inferoseptal Normal Spencer-Septal Normal Spencer-Anterior Normal Spencer-Lateral Normal Spencer-Inferior Normal Spencer-Tip Normal This report has been electronically signed by: David Kendrick MD 07/14/2020 13:53:16 Images reviewed and interpretation verified [facility] Cardiac Ultrasound Laboratory Jose Govea MD ECHO ORDERABLES documented in this encounter Visit Diagnoses Diagnosis Other cardiomyopathy Other cardiomyopathy documented in this encounter Care Teams Cigarette Making Machine Operator Relationship Specialty Start Date End Date Dean Alfonso [place] [address] PCP - General Geriatric Medicine 10/12/16 documented as of this encounter
--- OUTSIDE RECORDS SUMMARY | 2024-02-27 12:43 | XMS_ITS | Encounter Summary ---
Author Organization [facility] Address [facility] [place] [address] Care Team Providers Care Patient Access Name Role Phone Dena Alfonso APRN Primary Care Provider Encounter Details Date Type Department Care Team (Late Contact Info) Description 04/11/2020 Telephone Hematology/Oncology at [address] [phone] Chuck Zamorano Social History Tobacco Use Types Packs/Day Years [...] AM EDT Office Visit Hematology/Oncology at [address] [phone] El Bernardo MD [facility] [place] [address] Linda Tamayo [address] HEMATOLOGY AND ONCOLOGY [place], [place] [phone] 04/21/2024 8:00 AM EST Appointment Mammography[place] [address] Linda Tamayo BARGE ENGINEER [address] [place] [address] DR HEMATOLOGY AND ONCOLOGY [place], [place] [phone] documented as of this encounter Visit Diagnoses Not on filedocumented in this encounter Care Teams Patient Access Relationship Specialty Start Date End Date Dena Alfonso APRN [address] [place], [place] [phone] PCP - General Geriatric Medicine 10/12/16 documented as of this encounter
--- OUTSIDE RECORDS SUMMARY | 2024-02-27 12:43 | XMS_ITS | Encounter Summary ---
Author Organization [facility] Address [facility] [place] [address] Care Team Providers Care Traffic Signal Supervisor Maintenance Name Role Phone Dena Alfonso APRN Primary Care Provider [phone] Encounter Details Date Type Department Care Team (Late st Contact Info) Description 10/24/2016 External Results XRay at [address] [place] [phone] Provider, Scanning Social History Tobacco Use Types Packs/Day Years [...] AM EDT Office Visit Hematology/Oncology at [address] [phone] El Bernardo MD [facility] [place] [address] Linda Tamayo AMMONIUM SULFATE OPERATOR [address] [place] [address] DR HEMATOLOGY AND ONCOLOGY [place], [place] [phone] 04/21/2024 8:00 AM EST Appointment Mammography/[place] [address] Linda Tamayo AMMONIUM SULFATE OPERATOR [address] [place] [address] DR HEMATOLOGY AND ONCOLOGY [place], [place] [phone] documented as of this encounter Procedures Procedure Name Priority Date/Time Associated Diagnosis Comments MAMMOGRAM SCAN Routine 10/23/2016 documented in this encounter Results * Scan Doc: Mammogram (10/23/2016) Anatomical Region Laterality Modality Other Scanning Provider MEDIA MGR SCAN EXT O RDR/RSLT documented in this encounter Visit Diagnoses Not on filedocumented in this encounter Care Teams Traffic Signal Supervisor Maintenance Relationship Specialty Start Date End Date Dena Alfonso APRN [address] [place], [place] [phone] PCP - General Geriatric Medicine 10/12/16 documented as of this encounter
--- OUTSIDE RECORDS SUMMARY | 2024-02-27 12:43 | XMS_ITS | Encounter Summary ---
Author Organization [facility] Address [facility] [place] [address] Care Team Providers Care Flat Lock Machine Operator Name Role Phone Dena Alfonso APRN Primary Care Provider [phone] [phone] Reason for Referral * Diagnostic Test (Routine) - Closed Specialty Diagnoses / Procedures Referred By Mariah tate Referred To Contact Cardiology Diagnoses Other cardiomyopathy Procedures Echocardiogram Transthoracic(Leb) Xuan Foote MD [facility] [place] [address] [facility] [place] [address] Referral ID Status Reason Start Date Expiration Date V isits Requested Visits Authorized [id number] Closed Specialty Service Requested 12/05/2017 12/05/2018 1 1 Encounter Details Date Type Department Care Team (Late st Contact Info) Description 12/05/2017 1:00 PM EDT Office Visit Cardiology at [address] [address] Xuan Foote MD [facility] [place] [address] Other cardiomyopathy Social History Tobacco Use Types [...] Sign Reading Time Taken Comments Blood Pressure 114/75 12/05/2017 1:01 PM EDT Pulse 77 12/05/2017 1:01 PM EDT Temperature - - Respiratory Rate - - Oxygen Saturation 98% 12/05/2017 1:01 PM EDT Inhaled Oxygen Concentration - - Weight 86.4 kg (190 lb 8 oz) 12/05/2017 1:01 PM EDT Height 167.6 cm (5' 6) 12/05/2017 1:01 PM EDT Body Mass Index 30.75 12/05/2017 1:01 PM EDT documented in this encounter Progress Notes * Xuan Foote MD - 12/05/2017 1:00 PM EDT HPI: Rebeca Hernández is a 56 y.o. year old female with a pmhx of brca and nonischemic cardiomyopathy, (normal heart catheterization in 2011) coming for evaluation. Originally, echocardiogram was read outas 40%, but repeat echocardiogram performed in May 2015 demonstrated an ejection fraction of 65%. She has a history of normal heart arteries. Left heart catheterization. She comes in for follow-up today. She has no chest pain. Shortness of breath is stable. She is exercising -- walking and some physical therapy. Last EF 65%. Some shortness of breath. Overall feels well. Off meds now secondary to allergies, ef has been monitored. PMHX Patient Active Problem List Diagnosis Code [...] prolapse N81.10 MEDS: reviewed [facility] Social History Social History ??? Marital status: Spouse name: N/A ??? Number of children: N/A ??? Years of education: N/A Social History Main Topics ??? Smoking status: Never Smoker ??? Smokeless tobacco: Never Used Comment: only exposure was as a child ??? Alcohol use No Comment: Occasionally ??? Drug use: No ??? Sexual activity: Not Currently Other Topics Concern ??? None Social History Narrative FAMHX Family History Problem Relation Age of Onset ??? Allergic Rhinitis Father ??? Asthma Neg Hx ??? Breast Cancer Maternal Grandmother ??? Breast Cancer Mother ??? Breast Cancer Other ROS Negative for blood in stool or urine. No fevers or chills. No recent syncope. Otherwise all other systems were reviewed and found to be negative. Physical Examination Most Recent Vitals: 12/05/17 1301 BP: 114/75 Pulse: 77 SpO2: 98% General: no acute distress Behavioral: Alert and [...] -- stable. 3. Follow up 1 year 4. Discussed plant based diet. documented in this encounter Plan of Treatment Upcoming Encounters Date Type Department Care Team (Late st Contact Info) Description 03/27/2024 11:00 AM EDT Office Visit Hematology/Oncology at [address] [address] El Bernardo MD [facility] [place] [address] [address] [place] [address] 04/21/2024 8:00 AM EST Appointment Mammography/[place] [address] HEMATOLOGY AND ONCOLOGY [place], [place] [id number] documented as of this encounter Results * ECHO COMPLETE (01/10/2018 3:25 PM EDT) EF 66 HEARTLAB SYSTEM Anatomical Region Laterality Modality Other 01/10/2018 Narrative 01/10/2018 4:35 PM EDT Procedure: ?Transthoracic Echocardiogram Patient: ?BRANDON Farooq ?(Age): 1960(57y) Med Rec#: ? [id number] ?Sex: ?F ? Site Loc: ? [facility] ?Ht / Wt: ??167(cm)/86(kg) Pt. Loc: ?Echo Lab ?BSA: ?1.95 Study Date: ?? 01/10/2018 ?Pt. Type: Outpatient Tape: ? Referring: XUAN FOOTE M Reading: Gary Rosa ([id number]) Diesel Power Mechanic: Guadalupe Palm BA, [facility] Diagnosis: BP: ? 110/73 SUMMARY: 1. The left ventricular chamber size is normal. Left ventricular wall thickness is normal. The quantitative left ventricular ejection fraction by biplane Jerez's method is 66%. Global longitudinal strain -17%. There are no left ventricular segmental wall motion abnormalities. 2. Right ventricular chamber size, wall thickness, and systolic function are within normal limits. 3. The left atrium is normal in size. The right atrium appears normal. 4. Pulmonary artery hypertension could not be assessed due to inadequate tricuspid regurgitation jet. 5. There is no evidence of aortic valve stenosis. 6. There is trace tricuspid regurgitation present. 7. The pericardium appears normal and there is no evidence of a pericardial effusion. Findings ? : Study Quality: ? Adequate Left Ventricle: ? The left ventricular chamber size is normal. ?Left ventricular wall thickness is normal. ?There is normal global left ventricular systolic function. ?The quantitative left ventricular ejection fraction by biplane Jerez's method is 66%. Global longitudinal strain -17%. ?There are no left ventricular segmental wall motion abnormalities. ?Left ventricular diastolic function is normal. ?Doppler assessment is consistent with normal left sided filling pressure. Left Atrium: ? The left atrium is normal in size. (19 ml/m2 by volume index) Right Ventricle: ? Right ventricular chamber size, wall thickness, and systolic function are within normal limits. ?Pulmonary artery hypertension could not be assessed due to inadequate tricuspid regurgitation jet. Right Atrium: ? The right atrium appears normal. Aortic Valve: ? The aortic valve is tricuspid. ?There is aortic annular calcification. ?There is [...] evidence of a pericardial effusion. Aorta: ? The aortic root is normal in size. ?The ascending aorta is normal in size. Pulmonary Artery: ? The main pulmonary artery appears normal. Venous: ? The inferior vena cava appears normal in size. ?There is a greater than 50% respiratory change in the inferior vena cava dimension. Misc: ? See remainder of report for additional findings. ?Two-dimensional echo, spectral Doppler and color Doppler performed. Chambers 2D ?Value ?Units (Range) ? IVSd (2D) ? 0.8 ?cm ? LVPWd (2D) ?0.8 ?cm ? IVS:LVPW ratio (2D) 0.9 ?ratio ? RWT (2D) ?0.4 ?ratio ? RWT PW (2D) ? 0.4 ?ratio ? LVIDd (2D) ?4.5 ?cm ? LVIDs (2D) ?2.9 ?cm ? LVIDd (2D) index ?2.3 ?cm/m2 ? LVIDs (2D) index ?1.5 ?cm/m2 ? LV FS (2D) ?34 ? % ? EF Teichholz (2D) ?? 64 ? % ? Ao root diameter (2D3.6 ?cm (2.1 - 3.6) ? Ascending Ao ?3.2 ?cm (2 - 3.5) ? Volumes/Mass ?Value ?Units (Range) ? LA Area 4 CH ?15.2 ? cm2 (<21) ? RA AREA 4CH ? 14.1 ? cm2 ? LA ESV BP (MOD) inde19.4 ? ml/m2 ? LV ESV SP 4CH (MOD) 24.2 ? ml ? LV ESV SP 2CH (MOD) 30.1 ? ml ? LV EDV BP ? 81.6 ? ml ? LV ESV BP ? 27.9 ? ml ? LV EDV BP index ? 41.9 ? ml/m2 ? LV ESV BP index ? 14.3 ? ml/m2 ? BP EF (MOD) ? 66 ? % ? Global Longiitudinal-17 ?% (-30 - -10) ? LV mass (2D) ?111.2 ?g ? LV mass (2D) index ??57 ? g/m2 ? Diastolic/Systolic Function ?Value ?Units (Range) ? MV E-wave Vmax ?0.6 ?m/sec ? MV deceleration [id number] ?msec ? MV A-wave Vmax ?0.6 ?m/sec ? MV E:A ratio ?0.9 ?ratio ? LV septal e' Vmax ?? 0.1 ?m/sec ? LV lateral e' Vmax ??0.1 ?m/sec ? LV average e' Vmax ??0.1 ?m/sec ? LV E:e' septal ratio9.2 ?ratio ? LV E:e' lateral rati7.9 ?ratio ? LV average E:e' rati9.2 ?ratio ? Tricuspid Valve ?Value ?Units (Range) ? TAPSE ? 1.8 ?cm ? Wall Motion: Segment Name ?Rest ? Base-Anteroseptal ?? Normal ? Base-Anterior ? Normal ? Base-Anterolateral ??Normal ? Base-Posterolateral Normal ? Base-Inferior ? Normal ? Base-Inferoseptal ?? Normal ? Mid-Anteroseptal ?Normal ? Mid-Anterior ?Normal ? Mid-Anterolateral ?? Normal ? Mid-Posterolateral ??Normal ? Mid-Inferior ?Normal ? Mid-Inferoseptal ?Normal ? [place]-Septal ? Normal ? [place]-Anterior ? Normal ? [place]-Lateral ?Normal ? [place]-Inferior ? Normal ? [place]-Tip ?Normal ? This report has been electronically signed by: Gary Rosa MD ? 01/10/2018 15:41:20 Images reviewed and interpretation verified [facility] Cardiac Ultrasound Laboratory Procedure Note Gary Rosa MD - 01/10/2018 Procedure: Transthoracic Echocardiogram Patient: BRANDON Farooq DOB(Age): 1960(57y) Med Rec#: [id number] Sex: F Site Loc: [facility] Ht / Wt: 167(cm)/86(kg) Pt. Loc: Echo Lab BSA: 1.95 Study Date: 01/10/2018 Pt. Type: Outpatient Tape: Referring: XUAN FOOTE M Reading: Gary Rosa ([id number]) Diesel Power Mechanic: Guadalupe Palm BA [facility] Diagnosis: BP: 110/73 SUMMARY: 1. The left ventricular chamber size is normal. Left ventricular wall thickness is normal. The quantitative left ventricular ejection fraction by biplane Jerez's method is 66%. Global longitudinal strain -17%. There are no left ventricular segmental wall motion abnormalities. 2. Right ventricular chamber size, wall thickness, and systolic function are within normal limits. 3. The left atrium is normal in size. The right atrium appears normal. 4. Pulmonary artery hypertension could not be assessed due to inadequate tricuspid regurgitation jet. 5. There is no evidence of aortic valve stenosis. 6. There is trace tricuspid regurgitation present. 7. The pericardium appears normal and there is no evidence of a pericardial effusion. Findings : Study Quality: Adequate Left Ventricle: The left ventricular chamber size is normal. Left ventricular wall thickness is normal. There is normal global left ventricular systolic function. The quantitative left ventricular ejection fraction by biplane Jerez's method is 66%. Global longitudinal strain -17%. There are no left ventricular segmental wall motion abnormalities. Left ventricular diastolic function is normal. Doppler assessment is consistent with normal left sided filling pressure. Left Atrium: The left atrium is normal in size. (19 ml/m2 by volume index) Right Ventricle: Right ventricular chamber size, wall thickness, and systolic function are within normal limits. Pulmonary artery hypertension could not be assessed due to inadequate tricuspid regurgitation jet. Right Atrium: The right atrium appears normal. Aortic Valve: The aortic valve is tricuspid. There is aortic annular calcification. There is [...] no evidence of a pericardial effusion. Aorta: The aortic root is normal in size. The ascending aorta is normal in size. Pulmonary Artery: The main pulmonary artery appears normal. Venous: The inferior vena cava appears normal in size. There is a greater than 50% respiratory change in the inferior vena cava dimension. Misc: See remainder of report for additional findings. Two-dimensional echo, spectral Doppler and color Doppler performed. Chambers 2D Value Units (Range) IVSd (2D) 0.8 cm LVPWd (2D) 0.8 cm IVS:LVPW ratio (2D) 0.9 ratio RWT (2D) 0.4 ratio RWT PW (2D) 0.4 ratio LVIDd (2D) 4.5 cm LVIDs (2D) 2.9 cm LVIDd (2D) index 2.3 cm/m2 LVIDs (2D) index 1.5 cm/m2 LV FS (2D) 34 % EF Teichholz (2D) 64 % Ao root diameter (2D3.6 cm (2.1 - 3.6) Ascending Ao 3.2 cm (2 - 3.5) Volumes/Mass Value Units (Range) LA Area 4 CH 15.2 cm2 (<21) RA AREA 4CH 14.1 cm2 LA ESV BP (MOD) inde19.4 ml/m2 LV ESV SP 4CH (MOD) 24.2 ml LV ESV SP 2CH (MOD) 30.1 ml LV EDV BP 81.6 ml LV ESV BP 27.9 ml LV EDV BP index 41.9 ml/m2 LV ESV BP index 14.3 ml/m2 BP EF (MOD) 66 % Global Longiitudinal-17 % (-30 - -10) LV mass (2D) 111.2 g LV mass (2D) index 57 g/m2 Diastolic/Systolic Function Value Units (Range) MV E-wave Vmax 0.6 m/sec MV deceleration [id number] msec MV A-wave Vmax 0.6 m/sec MV E:A ratio 0.9 ratio LV septal e' Vmax 0.1 m/sec LV lateral e' Vmax 0.1 m/sec LV average e' Vmax 0.1 m/sec LV E:e' septal ratio9.2 ratio LV E:e' lateral rati7.9 ratio LV average E:e' rati9.2 ratio Tricuspid Valve Value Units (Range) TAPSE 1.8 cm Wall Motion: Segment Name Rest Base-Anteroseptal Normal Base-Anterior Normal Base-Anterolateral Normal Base-Posterolateral Normal Base-Inferior Normal Base-Inferoseptal Normal Mid-Anteroseptal Normal Mid-Anterior Normal Mid-Anterolateral Normal Mid-Posterolateral Normal Mid-Inferior Normal Mid-Inferoseptal Normal [place]-Septal Normal [place]-Anterior Normal [place]-Lateral Normal [place]-Inferior Normal [place]-Tip Normal This report has been electronically signed by: Gary Rosa MD 01/10/2018 15:41:20 Images reviewed and interpretation verified [facility] Cardiac Ultrasound Laboratory Xuan Foote MD ECHO ORDERABLES documented in this encounter Visit Diagnoses Diagnosis Other cardiomyopathy Other cardiomyopathy documented in this encounter Care Teams Flat Lock Machine Operator Relationship Specialty Start Date End Date Dena Alfonso APRN [address] [place] [address] PCP - General Geriatric Medicine 10/12/16 documented as of this encounter
--- OUTSIDE RECORDS SUMMARY | 2024-02-27 12:43 | XMS_ITS | Encounter Summary ---
Author Organization [facility] Address [facility] [place] [address] Care Team Providers Care Stock Hanger Name Role Phone Dena Alfonso APRN Primary Care Provider [phone] [phone] Encounter Details Date Type Department Care Team (Latest Contact Info) Description 10/23/2016 - 10/23/2016 11:59 PM EDT Hospital Encounter [place] [phone] Arnol Meehan MD [facility] [place] [address] Screening mammogram, encounter for Discharge Disposition: Home Social History Tobacco Use [...] Sig Dispensed Refills Start Date End Date cholecalciferol, Vitamin D3, 50 mcg (2,000 unit) Capsule Take by mouth daily. EPINEPHrine (EPIPEN) 0.3 mg/0.3 mL (1:1,000) Auto-Injector Inject 0.3 mLs into the muscle once as needed (difficulty breathing, throat swelling, loss of consciousness) for up to 1 dose. Call 911. 2 each 1 06/16/2014 cetirizine (ZYRTEC) 10 mg Tablet Take 10 mg by mouth daily as needed for Allergies. Reported on 10/12/2016 fluticasone (FLONASE) 50 mcg/actuation [place], Suspension 1 spray 2 times daily as needed for Rhinitis. Reported on 10/12/2016 03/11/2017 estradiol (VAGIFEM) 10 mcg TabletIndications:[place] pause Place 1 tablet vaginally twice a week. 8 tablet 11 04/28/2015 08/23/2020 fexofenadine (JANINA) 180 mg Tablet 1 tab daily prn allergies.Take 1 tab twice daily the day prior and day of receiving allergy shots. 30 tablet 11 03/04/2015 07/02/2017 PATANOL 0.1 % Drops INSTILL ONE DROP TO THE AFFECTED EYE(S) TWICE A DAY NEEDED FOR ALLERGIES 5 mL 5 12/01/2014 02/10/2018 ibuprofen (ADVIL;MOTRIN) 600 mg tablet Take 1 tablet by mouth every 6 hours as needed for Pain. 30 tablet 0 04/21/2013 03/11/2017 valACYclovir (VALTREX) 500 mg tablet Take 500 mg by mouth 2 times daily as needed. Reported on 10/12/2016 10/24/2016 LORazepam (ATIVAN) 1 mg tablet Take 1 mg by mouth nightly as needed. Reported on 10/12/2016 03/11/2017 documented as of this encounter Plan of Treatment Upcoming Encounters Date Type Department Care Team (Late st Contact Info) Description 03/27/2024 11:00 AM EDT Office Visit Hematology/Oncology at [address] [phone] El Bernardo MD [facility] [place] [address] Linda Tamayo [address] [place] [address] 04/21/2024 8:00 AM EST Appointment Mammography/[place] [address] [address]ayo [address] HEMATOLOGY AND ONCOLOGY [place], [place] [address] documented as of this encounter Procedures Procedure Name Priority Date/Time Associated Diagnosis Comments FILM LIBRARY STORAGE ONLY MAMMO Routine 10/23/2016 12:00 AM EDT Screening mammogram, encounter for documented in this encounter Results * Film Library- Storage Only Mammo (10/23/2016 12:00 AM EDT) Narrative RAD - 10/24/2016 10:08 AM EDT This exam is for storage only and is auto-finalizing. Arnol Meehan MD G FILM LIBRARY ORD ERABLES [place], [place] documented in this encounter Visit Diagnoses Diagnosis Screening mammogram, encounter for documented in this encounter Care Teams Stock Hanger Relationship Specialty Start Date End Date Dena Alfonso APRN [address] [place] [address] PCP - General Geriatric Medicine 10/12/16 documented as of this encounter
--- OUTSIDE RECORDS SUMMARY | 2024-02-27 12:43 | XMS_ITS | Encounter Summary ---
Author Organization [facility] Address [facility] [address] Care Team Providers Care Drop Hammer Mechanic Name Role Phone Dena Alfonso APRN Primary Care Provider Encounter Details Date Type Department Care Team (Late Contact Info) Description 02/18/2020 Orders Only [place] [address] El Bernardo MD [facility] [place] [address] History of left breast cancer; Breast cancer screening by mammogram Social History [...] 11:00 AM EDT Office Visit Hematology/Oncology at [address] [address] El Bernardo MD [facility] [place] [address] Linda Tamayo APRN [address] [place] [address] DR HEMATOLOGY [place] [address] 04/21/2024 8:00 AM EST Appointment Mammography[place] [address] Linda Tamayo APRN [address] [place] [address] DR HEMATOLOGY AND ONCOLOGY [place], [place] [id number] documented as of this encounter Visit Diagnoses Diagnosis History of left breast cancer Breast cancer screening by mammogram documented in this encounter Care Teams Drop Hammer Mechanic Relationship Specialty Start Date End Date Dena Alfonso APRN [address] [place] [address] PCP - General Geriatric Medicine 10/12/16 documented as of this encounter
--- OUTSIDE RECORDS SUMMARY | 2024-02-27 12:43 | XMS_ITS | Encounter Summary ---
Author Organization [facility] Address [facility] [place] [address] Care Team Providers Care Assistant Infant Toddler Teacher Name Role Phone Dena Alfonso APRN Primary Care Provider [phone] Reason for Referral * Diagnostic Test (Routine) - Closed Specialty Diagnoses / Procedures Referred By Mariah t Referred To Contact Cardiology Diagnoses Other cardiomyopathy Procedures Echocardiogram Transthoracic([facility] or [facility]) Jose Govea MD [facility] [place] [address] [facility] [place] [address] Referral ID Status Reason Start Date Expiration Date V isits Requested Visits Authorized [id number] Closed Specialty Service Requested 04/06/2020 04/06/2021 1 1 Reason for Visit * Diagnostic Test (Routine) - Closed Specialty Diagnoses / Procedures Referred By Contac t Referred To Contact Cardiology Diagnoses Other cardiomyopathy Procedures Echocardiogram Transthoracic([facility] or [facility]) Jose Govea MD [facility] [place] [address] [facility] [place] [address] Referral ID Status Reason Start Date Expiration Date V isits Requested Visits Authorized [id number] Closed Specialty Service Requested 04/06/2020 04/06/2021 1 1 Encounter Details Date Type Department Care Team (Latest Contact Info) Description 07/14/2020 11:29 AM EST - 07/14/2020 11:59 PM EST Hospital Encounter Non-Invasive Cardiology Lab [facility] [place] [address] Jose Govea MD [facility] [place] [address] Other cardiomyopathy Discharge Disposition: Home Social History Tobacco Use [...] NEEDED 3 12/12/2017 fluticasone (FLONASE) 50 mcg/actuation [place], Suspension 1 spray by Each Nare route [...] 11:00 AM EDT Office Visit Hematology/Oncology at [address] [address] El Bernardo MD [facility] [place] [address] HEMATOLOGY AND ONCOLOGY [place], [place] [address] 04/21/2024 8:00 AM EST Appointment Mammography/[place] [address] HEMATOLOGY AND ONCOLOGY [place], [place] [address] documented as of this encounter Procedures Procedure Name Priority Date/Time Associated Diagnosis Comments ECHO COMPLETE Routine 07/14/2020 1:09 PM EST Other cardiomyopathy documented in this encounter Results * ECHO COMPLETE (07/14/2020 1:09 PM EST) EF 66 HEARTLAB SYSTEM Anatomical Region Laterality Modality Other 07/14/2020 Narrative 07/14/2020 1:54 PM EST Procedure: ?Transthoracic Echocardiogram Patient: ?BRANDON Farooq ?(Age): 1960(59y) Med Rec#: ? [id number] ?Sex: ?F ? Site Loc: ? [facility] ?Ht / Wt: ??165(cm)/86(kg) Pt. Loc: ?Echo Lab ?BSA: ?1.93 Study Date: ?? 07/14/2020 ?Pt. Type: Outpatient Tape: ? Referring: [facility] Reading: David Kendrick ??([id number]) Paver: Saloni Valdivia Diagnosis: *Other cardiomyopathies (I42.8) BP: [...] Vmax ?0.54 ? m/sec ? MV deceleration [id number] ? msec ? MV A-wave Vmax ?0.68 [...] ? Mid-Inferior ?Normal ? Mid-Inferoseptal ?Normal ? [place]-Septal ? Normal ? [place]-Anterior ? Normal ? [place]-Lateral ?Normal ? [place]-Inferior ? Normal ? [place]-Tip ?Normal ? This report has been electronically signed by: David Kendrick MD ? 07/14/2020 13:53:16 Images reviewed and interpretation verified [facility] Cardiac Ultrasound Laboratory Procedure Note David Kendrick MD - 07/14/2020 Procedure: Transthoracic Echocardiogram Patient: BRANDON HERRERA(Age): 1960(59y) Med Rec#: [id number] Sex: F Site Loc: [facility] Ht / Wt: 165(cm)/86(kg) Pt. Loc: Echo Lab BSA: 1.93 Study Date: 07/14/2020 Pt. Type: Outpatient Tape: Referring: [facility] Reading: David Kendrick ([id number]) Paver: Saloni Valdivia Diagnosis: *Other cardiomyopathies (I42.8) BP: [...] MV E-wave Vmax 0.54 m/sec MV deceleration [id number] msec MV A-wave Vmax 0.68 m/sec MV [...] Normal Mid-Posterolateral Normal Mid-Inferior Normal Mid-Inferoseptal Normal [place]-Septal Normal [place]-Anterior Normal [place]-Lateral Normal [place]-Inferior Normal [place]-Tip Normal This report has been electronically signed by: David Kendrick MD 07/14/2020 13:53:16 Images reviewed and interpretation verified [facility] Cardiac Ultrasound Laboratory Jose Govea MD ECHO ORDERABLES documented in this encounter Visit Diagnoses Diagnosis Other cardiomyopathy documented in this encounter Care Teams Assistant Infant Toddler Teacher Relationship Specialty Start Date End Date Dena Alfonso APRN [address] [place] [address] PCP - General Geriatric Medicine 10/12/16 documented as of this encounter
--- OUTSIDE RECORDS SUMMARY | 2024-02-27 12:43 | XMS_ITS | Encounter Summary ---
Author Organization [facility] Address [facility] [place] [address] Care Team Providers Care Automotive Mechanic Name Role Phone Dena Alfonso APRN Primary Care Provider [phone] [phone] Reason for Referral * Diagnostic Test (Routine) - Closed Specialty Diagnoses / Procedures Referred By Mariah tate Referred To Contact Cardiology Diagnoses Other cardiomyopathy Procedures Echocardiogram Transthoracic(Leb) Xuan Fooet MD [facility] [place] [address] [facility] [place] [address] Referral ID Status Reason Start Date Expiration Date V isits Requested Visits Authorized [id number] Closed Specialty Service Requested 12/05/2017 12/05/2018 1 1 Reason for Visit * Diagnostic Test (Routine) - Closed Specialty Diagnoses / Procedures Referred By Mariah atte Referred To Contact Cardiology Diagnoses Other cardiomyopathy Procedures Echocardiogram Transthoracic(Leb) Xuan Foote MD [facility] [place] [address] [facility] [place] [address] Referral ID Status Reason Start Date Expiration Date V isits Requested Visits Authorized [id number] Closed Specialty Service Requested 12/05/2017 12/05/2018 1 1 Encounter Details Date Type Department Care Team (Latest Contact Info) Description 01/10/2018 12:58 PM EDT - 01/10/2018 11:59 PM EDT Hospital Encounter Non-Invasive Cardiology Lab [facility] [place] [address] Xuan Foote MD [facility] [place] [address] Other cardiomyopathy Discharge Disposition: Home Social History [...] Sig Dispensed Refills Start Date End Date valACYclovir (VALTREX) 500 mg Tablet Take 1 [...] NEEDED 3 12/12/2017 fluticasone (FLONASE) 50 mcg/actuation [place], Suspension 1 spray by Each Nare route daily as needed. cetirizine (ZYRTEC) 10 mg Tablet Take 10 mg by mouth daily as needed for Allergies. Reported on 10/12/2016 predniSONE (DELTASONE) 20 mg Tablet TAKE ONE TABLET BY MOUTH EVERY DAY 0 10/29/2017 07/21/2020 estradiol (VAGIFEM) 10 mcg TabletIndications:Menop ause Place 1 tablet vaginally twice a week. 8 tablet 11 04/28/2015 08/23/2020 PATANOL 0.1 % Drops INSTILL ONE DROP TO THE AFFECTED EYE(S) TWICE A DAY NEEDED FOR ALLERGIES 5 mL 5 12/01/2014 02/10/2018 documented as of this encounter Plan of Treatment Upcoming Encounters Date Type Department Care Team (Late st Contact Info) Description 03/27/2024 11:00 AM EDT Office Visit Hematology/Oncology at [address] [phone] El Bernardo MD [facility] [place] [address] [address] HEMATOLOGY AND ONCOLOGY [place], [place] [address] 04/21/2024 8:00 AM EST Appointment Mammography/[place] [phone] Linda Tamayo[address] HEMATOLOGY AND ONCOLOGY [place], [place] [phone] documented as of this encounter Procedures Procedure Name Priority Date/Time Associated Diagnosis Comments ECHO COMPLETE Routine 01/10/2018 3:25 PM EDT Other cardiomyopathy documented in this encounter Results * ECHO COMPLETE (01/10/2018 3:25 PM EDT) EF 66 HEARTLAB SYSTEM Anatomical Region Laterality Modality Other 01/10/2018 Narrative 01/10/2018 4:35 PM EDT Procedure: ?Transthoracic Echocardiogram Patient: ?BRANDON CRAWFORD A ?(Age): 1960(57y) Med Rec#: ? [id number] ?Sex: ?F ? Site Loc: ? [facility] ?Ht / Wt: ??167(cm)/86(kg) Pt. Loc: ?Echo Lab ?BSA: ?1.95 Study Date: ?? 01/10/2018 ?Pt. Type: Outpatient Tape: ? Referring: XUAN FOOTE M Reading: Gary Rosa ([id number]) Supervisor Decorating: Guadalupe Palm BA, [facility] Diagnosis: BP: ? 110/73 SUMMARY: 1. The [...] E-wave Vmax ?0.6 ?m/sec ? MV deceleration [id number] ?msec ? MV A-wave Vmax ?0.6 ?m/sec [...] ? Mid-Inferior ?Normal ? Mid-Inferoseptal ?Normal ? Hewitt-Septal ? Normal ? Hewitt-Anterior ? Normal ? Hewitt-Lateral ?Normal ? Hewitt-Inferior ? Normal ? Hewitt-Tip ?Normal ? This report has been electronically signed by: Gary Rosa MD ? 01/10/2018 15:41:20 Images reviewed and interpretation verified [facility] Cardiac Ultrasound Laboratory Procedure Note Gary Rosa MD - 01/10/2018 Procedure: Transthoracic Echocardiogram Patient: BRANDON HERRERA(Age): 1960(57y) Med Rec#: [id number] Sex: F Site Loc: [facility] Ht / Wt: 167(cm)/86(kg) Pt. Loc: Echo Lab BSA: 1.95 Study Date: 01/10/2018 Pt. Type: Outpatient Tape: Referring: XUAN FOOTE M Reading: Gary Rosa ([id number]) Supervisor Decorating: Guadalupe Palm BA [facility] Diagnosis: BP: 110/73 SUMMARY: 1. The left [...] MV E-wave Vmax 0.6 m/sec MV deceleration [id number] msec MV A-wave Vmax 0.6 m/sec MV [...] Normal Mid-Posterolateral Normal Mid-Inferior Normal Mid-Inferoseptal Normal Hewitt-Septal Normal Hewitt-Anterior Normal Hewitt-Lateral Normal Hewitt-Inferior Normal Hewitt-Tip Normal This report has been electronically signed by: Gary Rosa MD 01/10/2018 15:41:20 Images reviewed and interpretation verified [facility] Cardiac Ultrasound Laboratory Xuan Foote MD ECHO ORDERABLES documented in this encounter Visit Diagnoses Diagnosis Other cardiomyopathy documented in this encounter Care Teams Automotive Mechanic Relationship Specialty Start Date End Date Dena Alfonso APRN [address] [facility] [place] [address] PCP - General Geriatric Medicine 10/12/16 documented as of this encounter
--- OUTSIDE RECORDS SUMMARY | 2024-02-27 12:43 | XMS_ITS | Encounter Summary ---
Author Organization [facility] Address [facility] [place] [address] Care Team Providers Care Police Officer Name Role Phone Dena Alfonso APRN Primary Care Provider Encounter Details Date Type Department Care Team (Late st Contact Info) Description 04/08/2020 1:00 PM EDT Office Visit Hematology/Oncology at [address] [phone] El Bernardo MD [facility] [place] [address] Felicia Wagoner APRN [address] [place] [address] DR HEMATOLOGY ONCOLOGY [place], [place] [id number] Breast cancer, stage 2, left; 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; Breast cancer screening by mammogram Social History [...] Sign Reading Time Taken Comments Blood Pressure 121/86 04/08/2020 12:56 PM EDT Pulse 95 04/08/2020 12:56 PM EDT Temperature 36.9 ??C (98.5 ??F) 04/08/2020 12:56 PM E DT Respiratory Rate 18 04/08/2020 12:56 PM EDT Oxygen Saturation 100% 04/08/2020 12:56 PM EDT Inhaled Oxygen Concentration - - Weight 85.9 kg (189 lb 6.4 oz) 04/08/2020 12:56 PM EDT Height 165.1 cm (5' 5) 04/08/2020 12:56 PM EDT Body Mass Index 31.52 04/08/2020 12:56 PM EDT documented in this encounter Progress Notes * El Bernardo MD - 04/08/2020 1:00 PM EDT Subjective: Patient ID: Rebeca [...] with heterologous chondroid differentiation Tumor Grade: High Xyvbcw-Zzgbs-Tmatqcztij Score: 9 Tubular Differentiation: 3 Mitotic Rate: [...] carcinoma: 4 Estrogen/Progestin receptors: ER immunoreactivity: Negative CA immunoreactivity: Negative HER2/yeyo expression by FISH: NEGATIVE [...] same BRCA1 alteration found in her mother ([id number]). Prophylactic BSO 04/2013. Path - Right and left fallopian tubes and ovaries (bilateral salpingo-oophorectomy): No evidence of malignancy. 3. 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 The path report is above, there is no evidence of malignancy. On presentation today, she is feeling fairly well. She has some back discomfot but notes that she has been doing a lot of gardening and feels it may be from that. She has scoiliosis and DJD. No otherparticular areas of pain. Her appetite is good and her weight is stable. She is disappointed because she would like to lose weight. She walks and works out in the yard. She had been swimming but hasn't been able to do that because of covid. She has some heartburn symptoms at times. She used to takean acid dimtry but doesn't now because she doesn't like to take pills. No dysphagia. She does BSE at times but it is difficult for her to evaluate. Review of Systems Constitutional: Positive for fatigue. Negative for activity change, appetite change, chills, fever and unexpected weight change. Eyes: Negative. Respiratory: Negative. Cardiovascular: Negative. Gastrointestinal: Negative. Genitourinary: Negative. Musculoskeletal: Positive for back pain. Skin: Negative. Neurological: Negative. Psychiatric/Behavioral: Negative. Objective: Physical Exam Constitutional: She is oriented to person, place, and time. She appears well- developed and well-nourished. No distress. HENT: Head: Normocephalic and atraumatic. Mouth/Throat: Oropharynx is clear and moist. No oropharyngeal exudate. Eyes: Pupils are equal, round, and reactive to light. EOM are normal. No scleral icterus. Neck: Normal range of [...] There is no hepatosplenomegaly. There is no abdominal tenderness. There is no guarding. Genitourinary: Genitourinary Comments: Breast exam: Well healed incision in upper portion of left breast. Some mild thickening of the skin on the left and no masses in either breast. Nipples flat, nodischarge. Musculoskeletal: Normal range of motion. General: No tenderness or edema. Lymphadenopathy: She has no cervical adenopathy. She has no axillary adenopathy. Right: No supraclavicular adenopathy present. Left: No supraclavicular adenopathy present. Neurological: She is alert and oriented to person, place, and time. No cranial nerve deficit. Coordination normal. Skin: Skin is warm and dry. No rash noted. No erythema. Psychiatric: She has a normal mood and affect. Her behavior is normal. Vitals reviewed. Labs (03/30/20): WBC/ANC - 4.. Hgb/Hct -12.9/39.8, Plts - 289,000. BUN/Cr - 17/0.9. Lytes and LFTs unremarkable. Assessment and Plan: Ms. Hernández is a 59 yo female with a h/o left breast cancer as above. This was diagnosed in 2004. 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 It was hormonereceptor and her-2/yeyo negative. She received adjuvant chemotherapy with AC and radiation and completed all therapy in 11/20. She is positive for BRCA-1 mutation. She is s/p prophylactic oophorectomy. Clinically, she is doing well. We talked about screening. She is scheduled for a mammogram on 05/05/20. She had been having breast MRI as well but stopped after the MRI in 2015 led to a biopsy which was difficult for her. We discussed that she is at high risk for a second primary breast cancer and MRI is recommended as part of the screening. She is willing to have that done. We will schedule that and reschedule the mammogram to be done at [facility] [place] [place] and f/u with her after by phone. We did discuss prophylactic mastectomy and she is not interested in that at this time. I have asked her to call us if she does not hear from us or the hospital with a result of that. We talked about testing for her daughter who is 26. She does not want to do testing yet. She lives in [place]. I asked her to have her daughter discuss testing and screening with her provider.Her sister was tested and was negative. Her brother has elected not to be tested. documented in this encounter Plan of Treatment Upcoming Encounters Date Type Department Care Team (Late st Contact Info) Description 03/27/2024 11:00 AM EDT Office Visit Hematology/Oncology at [address] [phone] El Bernardo MD [facility] [place] [address] [address] HEMATOLOGY AND ONCOLOGY [place], [place] [address] 04/21/2024 8:00 AM EST Appointment Mammography/[place] [address] HEMATOLOGY AND ONCOLOGY [place], [place] [id number] documented as of this encounter Results * Mammo Screening Cad and Elie Bilateral (07/14/2020 11:23 AM EST) Anatomical Region [...] Electronically signed by: Kalpana De Dios MD, [facility] ([phone]), at 07/14/2020 11:27 AM El Bernardo MD IMG MAMMO ORDERABLES documented in this encounter Visit Diagnoses Diagnosis Breast cancer, stage 2, left 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
--- OUTSIDE RECORDS SUMMARY | 2024-02-27 12:43 | XMS_ITS | Encounter Summary ---
Author Organization [facility] Address [facility] [place] [address] Care Team Providers Care Office Technician Name Role Phone Dena Alfonso LIZABETH Primary Care Provider [phone] Reason for Visit * Reason Comments Medication Refill Encounter Details Date Type Department Care Team (Late Contact Info) Description 02/16/2019 Refill Dermatology at [address] [place] [phone] Miles Bowman MD [address] [place] [address], [place] [address] Social History Tobacco Use Types Packs/Day Years [...] AM EDT Office Visit Hematology/Oncology at [address] [phone] El Bernardo MD [facility] [place] [address] Linda Tamayo APRN [address] [place] [address] DR [place] [address] 04/21/2024 8:00 AM EST Appointment Mammography/[place] [address] Linda Tamayo APRN [address] [place] [address] DR HEMATOLOGY AND ONCOLOGY [place], [place] [phone] documented as of this encounter Visit Diagnoses Not on filedocumented in this encounter Care Teams Office Technician Relationship Specialty Start Date End Date Dena Alfonso APRN [address] [place] [address] PCP - General Geriatric Medicine 10/12/16 documented as of this encounter
--- OUTSIDE RECORDS SUMMARY | 2024-02-27 12:43 | XMS_ITS | Encounter Summary ---
Author Organization [facility] Address [facility] [place] [address] Care Team Providers Care Electrical Hardware Engineer Name Role Phone Dena Alfonso APRN Primary Care Provider Encounter Details Date Type Department Care Team (Late Contact Info) Description 08/19/2019 Ancillary Procedure [place] [address] Cj Castro Jr., MD [facility] [place] [address] Social History Tobacco Use Types Packs/Day Years [...] 11:00 AM EDT Office Visit Hematology/Oncology at [address] [phone] El Bernardo MD [facility] [place] [address] Linda Tamayo APRN [address] [place] [address] DR [place] [address] 04/21/2024 8:00 AM EST Appointment Mammography[place] [address] Linda Tamayo APRN [address] [place] [address] DR HEMATOLOGY AND ONCOLOGY [place], [place] [id number] documented as of this encounter Procedures Procedure Name Priority Date/Time Associated Diagnosis Comments FILM LIBRARY STORAGE ONLY DX WRIST Routine 08/19/2019 12:00 AM EST documented in this encounter Results * Film Library- Storage Only DX Wrist (08/19/2019 12:00 AM EST) Narrative [facility] - 06/24/2020 2:54 AM EST This exam is auto-finalizing. It's purpose is for storage only. Cj Castro Jr., MD IMG FILM LI BRARY ORDERABLES [place], [place] documented in this encounter Visit Diagnoses Not on filedocumented in this encounter Care Teams Electrical Hardware Engineer Relationship Specialty Start Date End Date Dena Alfonso APRN [address] [place] [address] PCP - General Geriatric Medicine 10/12/16 documented as of this encounter
--- OUTSIDE RECORDS SUMMARY | 2024-02-27 12:43 | XMS_ITS | Encounter Summary ---
Author Organization [facility] Address [facility] [place] [address] Care Team Providers Care Language Interpreter Name Role Phone Dena Alfonso LIZABETH Primary Care Provider [phone] [phone] Encounter Details Date Type Department Care Team (Late st Contact Info) Description 02/19/2019 9:00 AM EDT Office Visit Hematology/Oncology at [address] [phone] Carmen Govea APRN [address] [place] [phone] Malignant neoplasm of left breast in female, [...] Sign Reading Time Taken Comments Blood Pressure 128/95 02/19/2019 9:04 AM EDT Pulse 77 02/19/2019 9:04 AM EDT Temperature 36.7 ??C (98.1 ??F) 02/19/2019 8:57 AM ED T Respiratory Rate 18 02/19/2019 9:04 AM EDT Oxygen Saturation 99% 02/19/2019 9:04 AM EDT Inhaled Oxygen Concentration - - Weight 86.6 kg (191 lb) 02/19/2019 8:57 AM EDT Height 167.6 cm (5' 6) 02/19/2019 8:57 AM EDT Body Mass Index 30.83 02/19/2019 8:57 AM EDT documented in this encounter Progress Notes * Carmen Govea, CLERICAL PROOFREADER - 02/19/2019 9:00 AM EDT Subjective: Patient ID: Rebeca Hernández is a 58 y.o. female. Problem List: 1. Cancer of [...] with heterologous chondroid differentiation Tumor Grade: High Gtjnwt-Mhhgw-Izuphyzudu Score: 9 Tubular Differentiation: 3 Mitotic Rate: [...] carcinoma: 4 Estrogen/Progestin receptors: ER immunoreactivity: Negative OH immunoreactivity: Negative HER2/yeyo expression by FISH: NEGATIVE [...] same BRCA1 alteration found in her mother ([id number]). Prophylactic BSO 04/2013. Path - Right and left fallopian tubes and ovaries (bilateral salpingo-oophorectomy): No evidence of malignancy. 3. ART CONSERVATOR History: The patient is G4, P3 with [...] 60% with no regional wall motion abnormalities. HPI: Ms. Hernández is seen in follow up of cancer of the left breast as above. 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 It was hormone receptor and her-2/yeyo negative. She received adjuvant chemotherapy with AC and radiation and completed all therapy in 11/20. S he has undergone genetic testing and is BRCA-1 positive. In 04/2013, she elected to undergo prophylactic BSO. The path did not show evidence of malignancy. Breast MRI in 08/02 showed a suspicious area of enhancement in the right breast. On 08/16/15 she underwent MRI guided bx. The path report is above, there was no evidence of malignancy. Interim History: Rebeca Hernández returns to clinic for repeat evaluation and CBE secondary to history of [place] breast cancer. She reports back pain related to scoliosis. She is currently receiving PT. She denies fever, chills, night sweats or unusual bleeding. PMH, PSH, FH, and SH: Except as mentioned in the interim history, unchanged since last office visit. Review of Systems Constitutional: Negative. HENT: Negative. Eyes: Negative. Respiratory: Negative. Cardiovascular: Negative. Gastrointestinal: Negative. Endocrine: Negative. Genitourinary: Negative. Musculoskeletal: Positive for back pain. Skin: Negative. Allergic/Immunologic: Negative. Neurological: Negative. Hematological: Negative. Psychiatric/Behavioral: Negative. Objective: Physical Exam Constitutional: She is oriented to person, place, and time. She appears well- developed and well-nourished. HENT: Head: Normocephalic and atraumatic. Nose: Nose normal. Mouth/Throat: Oropharynx is clear and moist. Eyes: Conjunctivae and EOM are normal. Neck: Normal range of motion. Neck supple. Cardiovascular: Normal rate and regular rhythm. Pulmonary/Chest: Effort normal and breath sounds normal. Abdominal: Soft. Bowel sounds are normal. Musculoskeletal: Normal range of motion. Neurological: She is alert and oriented to person, place, and time. Skin: Skin is warm and dry. Psychiatric: She has a normal mood and affect. Her behavior is normal. Vitals reviewed. Breast Exam: Being breast exam bilaterally. Vitals: BP (!) 128/95 (Patient Position: Sitting) Pulse 77 Temp 36.7 ??C (98.1 ??F) (Oral) Resp 18 Ht 167.6 cm (5' 6) Wt 86.6 kg (191 lb) SpO2 99% BMI 30.83 kg/m?? 02/19/19 LABs: No Labs today Assessment and Plan: 1. Breast cancer. Currently on clinical surveillance. 2. Follow up for annual mammograms as scheduled. 3. RTC in 1 year for repeat evaluation and CBE. Carmen Govea, MSN, CLERICAL PROOFREADER, AOCNP documented in this encounter Plan of Treatment Upcoming Encounters Date Type Department Care Team (Late st Contact Info) Description 03/27/2024 11:00 AM EDT Office Visit Hematology/Oncology at [address] [phone] El Bernardo MD [facility] [place] [address] Linda Tamayo APRN [address] [place] [address] DR [place]EMATOLOGY [place] [address] 04/21/2024 8:00 AM EST Appointment Mammography/[place] [phone] Linda Tamayo APRN [address] [place] [address] DR HEMATOLOGY AND ONCOLOGY [place], [place] [id number] documented as of this encounter Visit Diagnoses Diagnosis Malignant neoplasm of left breast in female, estrogen receptor negative, unspecified site of breast documented in this encounter Care Teams Language Interpreter Relationship Specialty Start Date End Date Dena Alfonso APRN [address] [place], [place] [phone] PCP - General Geriatric Medicine 10/12/16 documented as of this encounter
--- OUTSIDE RECORDS SUMMARY | 2024-02-27 12:43 | XMS_ITS | Encounter Summary ---
Author Organization [facility] Address [facility] [place] [address] Care Team Providers Care Christian Science Nurse Name Role Phone Dena Alfonso APRN Primary Care Provider [phone] Reason for Visit * Reason Comments Follow-up Encounter Details Date Type Department Care Team (Late st Contact Info) Description 09/29/2018 3:45 PM EDT Office Visit Dermatology at [address] [phone] Miles Bowman MD [address] [place] [address], [facility] [place] [address] Seborrheic keratosis Social History Tobacco Use Types [...] Progress Notes * Miles Bowman MD - 09/29/2018 3:45 PM EDT Problem: Eyelid tags/Anil keratoses Giana returns today for treatment Physical examination again reveals a hyperpigmented papule one on the right upper eyelid and one inthe left lower eyelid Assessment plan: Tags/seborrheic keratoses early, 2 sites as noted above 1. After obtaining consent sites were anesthetized and removed with light electrodesiccation 2. Discussed post treatment wound care 3. Return to clinic here as needed. CC: Dena Alfonso APRN documented in this encounter Plan of Treatment Upcoming Encounters Date Type Department Care Team (Late st Contact Info) Description 03/27/2024 11:00 AM EDT Office Visit Hematology/Oncology at [address] [phone] El Bernardo MD [facility] [place] [place] [address] [address] HEMATOLOGY [place] [address] 04/21/2024 8:00 AM EST Appointment Mammography/[place] [address] [address] HEMATOLOGY AND ONCOLOGY [place], [place] [address] documented as of this encounter Visit Diagnoses Diagnosis Seborrheic keratosis Other seborrheic keratosis documented in this encounter Care Teams Christian Science Nurse Relationship Specialty Start Date End Date Dena Alfonso APRN [address] [place] [address] PCP - General Geriatric Medicine 10/12/16 documented as of this encounter
--- OUTSIDE RECORDS SUMMARY | 2024-02-27 12:43 | XMS_ITS | Encounter Summary ---
Author Organization [facility] Address [facility] [place] [address] Care Team Providers Care Waiter/Waitress Counter Name Role Phone Dena Alfonso APRN Primary Care Provider Encounter Details Date Type Department Care Team (Late Contact Info) Description 04/22/2019 Ancillary Procedure [place] [address] Cj Castro Jr., MD [facility] [place] [address] Social History Tobacco Use Types Packs/Day Years [...] 11:00 AM EDT Office Visit Hematology/Oncology at [address] [phone] El Bernardo MD [facility] [place] [address] Linda Tamayo APRN [address] [place] [address] DR HEMATOLOGY [place] [address] 04/21/2024 8:00 AM EST Appointment Mammography/[place] [address] Linda Tamayo APRN [address] [place] [address] DR HEMATOLOGY AND ONCOLOGY [place], [place] [id number] documented as of this encounter Procedures Procedure Name Priority Date/Time Associated Diagnosis Comments FILM LIBRARY STORAGE ONLY DX WRIST Routine 04/22/2019 12:00 AM EST documented in this encounter Results * Film Library- Storage Only DX Wrist (04/22/2019 12:00 AM EST) Narrative [facility] - 06/24/2020 2:56 AM EST This exam is auto-finalizing. It's purpose is for storage only. Cj Castro Jr., MD IMG FILM LI BRARY ORDERABLES [place], [place] documented in this encounter Visit Diagnoses Not on filedocumented in this encounter Care Teams Waiter/Waitress Counter Relationship Specialty Start Date End Date Dena Alfonso APRN [address] [place] [address] PCP - General Geriatric Medicine 10/12/16 documented as of this encounter
--- OUTSIDE RECORDS SUMMARY | 2024-02-27 12:43 | XMS_ITS | Encounter Summary ---
Author Organization [facility] Address [facility] [place] [address] Care Team Providers Care Bistro Attendant Name Role Phone Dena Alfonso APRN Primary Care Provider [phone] Encounter Details Date Type Department Care Team (Late Contact Info) Description 01/06/2020 Orders Only Hematology [place] [address] El Bernardo MD [facility] [place] [address] History of left breast cancer; Breast cancer, stage 1, left; Encounter for screening mammogram for malignant neoplasm [...] AM EDT Office Visit Hematology/Oncology at [address] [phone] El Bernardo MD [facility] [place] [address] Linda Tamayo APRN [address] [place] [address] DR HEMATOLOGY AND ONCOLOGY [place], [place] [address] 04/21/2024 8:00 AM EST Appointment Mammography/[place] [phone] Linda Tamayo APRN [address] [place] [address] DR HEMATOLOGY AND ONCOLOGY [place], [place] [address] documented as of this encounter Visit Diagnoses Diagnosis History of left breast cancer Breast cancer, stage 1, left Encounter for screening mammogram for malignant neoplasm of breast Other screening mammogram documented in this encounter Care Teams Bistro Attendant Relationship Specialty Start Date End Date Dena Alfonso APRN [address] [place] [address] PCP - General Geriatric Medicine 10/12/16 documented as of this encounter
--- OUTSIDE RECORDS SUMMARY | 2024-02-27 12:43 | XMS_ITS | Encounter Summary ---
Author Organization [facility] Address [facility] [place] [address] Care Team Providers Care Educational Paraprofessional Name Role Phone Dena Alfonso APRN Primary Care Provider Encounter Details Date Type Department Care Team (Late Contact Info) Description 04/04/2020 Telephone Cardiology at [address] [phone] Malinda Adam RN Social History Tobacco Use Types Packs/Day Years [...] encounter Miscellaneous Notes * Telephone Encounter - Malinda Adam RN - 04/04/2020 9:22 AM EDT Patient called asking about Holter results. Malinda Melendez RNbrake repairer railroad [facility] General Team-[place] documented in this encounter Plan of Treatment Upcoming Encounters Date Type Department Care Team (Late st Contact Info) Description 03/27/2024 11:00 AM EDT Office Visit Hematology/Oncology at [address] [phone] El Bernardo MD [facility] [place] [address] Linda Tamayo APRN [address] [place] [address] DR HEMATOLOGY AND ONCOLOGY [place], [place] [address] 04/21/2024 8:00 AM EST Appointment Mammography/[place] [address] Linda Tamayo APRN [address] [place] [address] DR HEMATOLOGY AND ONCOLOGY [place], [place] [id number] documented as of this encounter Visit Diagnoses Not on filedocumented in this encounter Care Teams Educational Paraprofessional Relationship Specialty Start Date End Date Dena Alfonso APRN [address] [place], [place] [id number] PCP - General Geriatric Medicine 10/12/16 documented as of this encounter
--- OUTSIDE RECORDS SUMMARY | 2024-02-27 12:43 | XMS_ITS | Encounter Summary ---
Author Organization [facility] Address [facility] [place] [address] Care Team Providers Care Program Officer Name Role Phone Robert Hummel MD Primary Care Provider [phone] Reason for Visit * Reason Onset Date Comments Results 05/25/2016 Encounter Details Date Type Department Care Team ([facility] st Contact Info) Description 05/25/2016 Telephone Cardiology at [address] [address] Ana Valladares, RN Results Social History Tobacco Use Types Packs/Day Years [...] encounter Miscellaneous Notes * Telephone Encounter - Ana Valladares RN - 05/25/2016 12:10 PM EST Called patient with report on recent echo per Dr. Govea. Pt voiced understanding and was pleasedwith report. She has been checking her b/p the past couple of days and the diastolic b/p's have been 86 & 78, systolic ranges 128- 136. She is trying to exercise more now which helps with her stress level. Will inform Dr. Govea. * Telephone Encounter - Ana Valladares RN - 05/25/2016 12:09 PM EST ----- Message from Jose Govea MD sent at 05/25/2016 11:48 AM EST ----- pls let her know echo looks okay, thanks documented in this encounter Plan of Treatment Upcoming Encounters Date Type Department Care Team (Late st Contact Info) Description 03/27/2024 11:00 AM EDT Office Visit Hematology/Oncology at [address] [phone] El Bernardo MD [facility] [place] [address] [address] HEMATOLOGY AND ONCOLOGY [place], [place] [address] 04/21/2024 8:00 AM EST Appointment Mammography/[place] [address] [address] HEMATOLOGY AND ONCOLOGY [place], [place] [address] documented as of this encounter Visit Diagnoses Not on filedocumented in this encounter Care Teams Program Officer Relationship Specialty Start Date End Date Robert Hummel MD PCP - General General Internal Medicine 05/22/1609/16 documented as of this encounter
--- OUTSIDE RECORDS SUMMARY | 2024-02-27 12:43 | XMS_ITS | Encounter Summary ---
Author Organization [facility] Address [facility] [place] [address] Care Team Providers Care Stain Maker Name Role Phone Dena Alfonso APRN Primary Care Provider Encounter Details Date Type Department Care Team (Late Contact Info) Description 04/20/2019 Ancillary Procedure [place] [address] Cj Castro Jr., MD [facility] [place] [address] Social History Tobacco Use Types Packs/Day Years [...] 11:00 AM EDT Office Visit Hematology/Oncology at [address] [phone] El Bernardo MD [facility] [place] [address] Linda Tamayo APRN [address] [place] [address] DR [place] [address] 04/21/2024 8:00 AM EST Appointment Mammography/[place] [address] Linda Tamayo APRN [address] [place] [address] DR HEMATOLOGY AND ONCOLOGY [place], [place] [id number] documented as of this encounter Procedures Procedure Name Priority Date/Time Associated Diagnosis Comments FILM LIBRARY STORAGE ONLY DX UPPER EXTREMITY Routine 04/20/2019 12:00 AM EST documented in this encounter Results * Film Library- Storage Only DX Upper Extremity (04/20/2019 12:00 AM EST) Narrative [facility] - 06/24/2020 8:09 AM EST This exam is auto-finalizing. It's purpose is for storage only. Cj Castro Jr., MD IMG FILM LI BRARY ORDERABLES Performing Organization Address City/State[facility] Co de Phone Number [place], [place] documented in this encounter Visit Diagnoses Not on filedocumented in this encounter Care Teams Stain Maker Relationship Specialty Start Date End Date Dena Alfonso APRN [address] [place] [address] PCP - General Geriatric Medicine 10/12/16 documented as of this encounter
--- OUTSIDE RECORDS SUMMARY | 2024-02-27 12:43 | XMS_ITS | Encounter Summary ---
Author Organization [facility] Address [facility] [place] [address] Care Team Providers Care Heavy Duty Mechanic Name Role Phone Dena Alfonso APRN Primary Care Provider [phone] Reason for Visit * Reason Onset Date Comments Follow-up 02/09/2019 Encounter Details Date Type Department Care Team (Late st Contact Info) Description 02/09/2019 Telephone Hematology/Oncology at [address] [phone] Lupe Mustafa RN Follow-up Social History Tobacco Use Types Packs/Day Years [...] Telephone Encounter - Lupe Mustafa RN - 02/09/2019 11:53 AM EDT Pt called and wanted to know results of mammogram report. Per Marli beach IT INFRASTRUCTURE MANAGER it was negative for any malignancy. Left message for pt about this. She will call with any questions or concerns. She is due to see Pat on Feb 19. documented in this encounter Plan of Treatment Upcoming Encounters Date Type Department Care Team (Late st Contact Info) Description 03/27/2024 11:00 AM EDT Office Visit Hematology/Oncology at [address] [phone] El Bernardo MD [facility] [place] [address] [address] HEMATOLOGY AND ONCOLOGY [place], [place] [id number] 04/21/2024 8:00 AM EST Appointment Mammography/[place] [address] HEMATOLOGY AND ONCOLOGY [place], [place] [address] documented as of this encounter Visit Diagnoses Not on filedocumented in this encounter Care Teams Heavy Duty Mechanic Relationship Specialty Start Date End Date Dena Alfonso APRN [address] [place], [place] [address] PCP - General Geriatric Medicine 10/12/16 documented as of this encounter
--- OUTSIDE RECORDS SUMMARY | 2024-02-27 12:43 | XMS_ITS | Encounter Summary ---
Author Organization [facility] Address [facility] [place] [address] Care Team Providers Care Acid Etch Operator Name Role Phone Dena Alfonso APRN Primary Care Provider [phone] Reason for Visit * Reason Onset Date Comments Other 01/14/2018 echo results Encounter Details Date Type Department Care Team ([facility] st Contact Info) Description 01/14/2018 Telephone Cardiology at [address] [phone] Irena Caputo Other (echo results ) Social History Tobacco Use Types Packs/Day [...] encounter Miscellaneous Notes * Telephone Encounter - Anuj Contreras RN - 01/14/2018 12:11 PM EDT TC to patient to discuss results of TTE per Dr. Govea note. Patient has follow up medication regarding the efficacy of restarting metoprolol in regards to a need to further or continue to assist heart function. * Telephone Encounter - Anuj Contreras RN - 01/14/2018 12:11 PM EDT ----- Message from Jose Govea MD sent at 01/12/2018 1:32 PM EDT ----- Please let her know heart function remains good! Thanks, ew * Telephone Encounter - Irena Caputo - 01/14/2018 9:25 AM EDT Nurses - Patient called and would like results of echo done last week. Dr. Shannon has documented the results in the echo report under results note. Please call the patient today and relay these to her. [phone]. Thank you, Irena documented in this encounter Plan of Treatment Upcoming Encounters Date Type Department Care Team (Late st Contact Info) Description 03/27/2024 11:00 AM EDT Office Visit Hematology/Oncology at [address] [phone] El Bernardo MD [facility] [place] [address] [address] HEMATOLOGY [place] [address] 04/21/2024 8:00 AM EST Appointment Mammography/[place] [address] [address] HEMATOLOGY AND ONCOLOGY [place], [place] [address] documented as of this encounter Visit Diagnoses Not on filedocumented in this encounter Care Teams Acid Etch Operator Relationship Specialty Start Date End Date Dena Alfonso APRN [address] [place] [id number] PCP - General Geriatric Medicine 10/12/16 documented as of this encounter
--- OUTSIDE RECORDS SUMMARY | 2024-02-27 12:43 | XMS_ITS | Encounter Summary ---
Author Organization [facility] Address [facility] [place] [address] Care Team Providers Care Operation Supervisor Name Role Phone Dena Alfonso APRN Primary Care Provider Encounter Details Date Type Department Care Team (Late st Contact Info) Description 06/03/2020 1:00 PM EST TH Visit (TeleHealth) Hematology/Oncology at [address] [phone] El Bernardo MD [facility] [place] [address] Felicia Wagoner APRN [address] [place] [address] DR HEMATOLOGY ONCOLOGY [place], [place] [address] Malignant neoplasm of left breast in female, [...] as of this encounter Progress Notes * Felicia Wagoner APRN - 06/03/2020 1:00 PM EST Rebeca Hernández is a 59 yo female with left breast cancer diagnosed in 01/2005. 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 She completed adjuvant chemotherapy with AC and radiation in 11/20. The phone visit was scheduled today to review results of a planned mammogram and breast MRI. Rebeca tells me those tests and an echocardiogram have been rescheduled for 07/14/20 at [facility] in [place]. This visit will be rescheduled as a phone visit with Dr. Bernardo on 07/22/20. documented in this encounter Plan of Treatment Upcoming Encounters Date Type Department Care Team (Late st Contact Info) Description 03/27/2024 11:00 AM EDT Office Visit Hematology/Oncology at [address] [phone] El Bernardo MD [facility] [place] [address] [address] HEMATOLOGY AND ONCOLOGY [place], [place] [address] 04/21/2024 8:00 AM EST Appointment Mammography/[place] [address] [place] [address] documented as of this encounter Visit Diagnoses Diagnosis Malignant neoplasm of left breast in female, estrogen receptor negative, unspecified site of breast documented in this encounter Care Teams Operation Supervisor Relationship Specialty Start Date End Date Dena Alfonso APRN [address] [place] [address] PCP - General Geriatric Medicine 10/12/16 documented as of this encounter
--- OUTSIDE RECORDS SUMMARY | 2024-02-27 12:43 | XMS_ITS | Encounter Summary ---
Author Organization [facility] Address [facility] [place] [address] Care Team Providers Care Commissioned Police Officer Name Role Phone Dena Alfonso APRN Primary Care Provider [phone] Encounter Details Date Type Department Care Team (Late Contact Info) Description 02/29/2020 Orders Only Cardiology at [address] [address] Jose Govea MD [facility] [place] [address] Syncope, unspecified syncope type (Primary Dx) Social History Tobacco Use Types Packs/Day Years [...] AM EDT Office Visit Hematology/Oncology at [address] [phone] El Bernardo MD [facility] [place] [address] Linda Tamayo APRN [address] [place] [address] [place] [address] 04/21/2024 8:00 AM EST Appointment Mammography/[place] [address] Linda Tamayo APRN [address] [place] [address] DR HEMATOLOGY AND ONCOLOGY [place], [place] [id number] documented as of this encounter Visit Diagnoses Diagnosis Syncope, unspecified syncope type- Primary documented in this encounter Care Teams Commissioned Police Officer Relationship Specialty Start Date End Date Dena Alfonso [place] [address] PCP - General Geriatric Medicine 10/12/16 documented as of this encounter
--- OUTSIDE RECORDS SUMMARY | 2024-02-27 12:43 | XMS_ITS | Encounter Summary ---
Author Organization [facility] Address [facility] [place] [address] Care Team Providers Care Environmental Services Tech Name Role Phone Dena Alfonso APRN Primary Care Provider Encounter Details Date Type Department Care Team (Late Contact Info) Description 01/13/2018 Orders Only Hematology/Oncology at [address] [phone] El Bernardo MD [facility] [place] [address] Malignant neoplasm of female breast, unspecified estrogen receptor status, unspecified laterality, unspecified site of breast Social History Tobacco [...] AM EDT Office Visit Hematology/Oncology at [address] [phone] El Bernardo MD [facility] [place] [address] Linda Tamayo APRN [address] [place] [address] DR HEMATOLOGY AND ONCOLOGY [place], [place] [id number] 04/21/2024 8:00 AM EST Appointment Mammography/[place] [phone] Linda Tamayo APRN [address] [place] [address] DR HEMATOLOGY AND ONCOLOGY [place], [place] [address] documented as of this encounter Visit Diagnoses Diagnosis Malignant neoplasm of female breast, unspecified estrogen receptor status, unspecified laterality, unspecified site of breast documented in this encounter Care Teams Environmental Services Tech Relationship Specialty Start Date End Date Dena Alfonso APRN [address] [place], [place] [address] PCP - General Geriatric Medicine 10/12/16 documented as of this encounter
--- OUTSIDE RECORDS SUMMARY | 2024-02-27 12:43 | XMS_ITS | Encounter Summary ---
Author Organization [facility] Address [facility] [place] [address] Care Team Providers Care Sephora Product Consultant Name Role Phone Dena Alfonso APRN Primary Care Provider Encounter Details Date Type Department Care Team (Late Contact Info) Description 02/23/2020 Orders Only Cardiology at [address] [phone] Jose Govea MD [facility] DR CARDIOLOGY [place], [place] [phone] Social History Tobacco Use Types Packs/Day Years [...] AM EDT Office Visit Hematology/Oncology at [address] [phone] El Bernardo MD [facility] [place] [address] Linda Tamayo APRN [address] [place] [address] DR HEMATOLOGY [place] [address] 04/21/2024 8:00 AM EST Appointment Mammography/[place] [address] Linda Tamayo APRN [address] [place] [address] DR HEMATOLOGY AND ONCOLOGY [place], [place] [id number] documented as of this encounter Visit Diagnoses Not on filedocumented in this encounter Care Teams Sephora Product Consultant Relationship Specialty Start Date End Date Dena Alfonso APRN [address] [place], [place] [address] [place], [place] [phone] PCP - General Geriatric Medicine 10/12/16 documented as of this encounter
--- OUTSIDE RECORDS SUMMARY | 2024-02-27 12:43 | XMS_ITS | Encounter Summary ---
Author Organization [facility] Address [facility] [place] [address] Care Team Providers Care Tray Casting Machine Operator Name Role Phone Dena Alfonso LIZABETH Primary Care Provider [phone] Reason for Visit * Reason Comments Medication Refill Encounter Details Date Type Department Care Team (Late Contact Info) Description 09/07/2019 Refill Dermatology at [address] [place] [address] Miles Bowman MD [address] [place] [address], [place] [address] Social History Tobacco Use Types Packs/Day Years [...] AM EDT Office Visit Hematology/Oncology at [address] [phone] El Bernardo MD [facility] [place] [address] Linda Tamayo APRN [address] [place] [address] [place] [address] 04/21/2024 8:00 AM EST Appointment Mammography/[place] [address] Linda Tamayo APRN [address] [place] [address] DR HEMATOLOGY AND ONCOLOGY [place], [place] [id number] documented as of this encounter Visit Diagnoses Not on filedocumented in this encounter Care Teams Tray Casting Machine Operator Relationship Specialty Start Date End Date Dena Alfonso APRN [address] [place] [address] PCP - General Geriatric Medicine 10/12/16 documented as of this encounter
--- OUTSIDE RECORDS SUMMARY | 2024-02-27 12:43 | XMS_ITS | Encounter Summary ---
Author Organization [facility] Address [facility] [place] [address] Care Team Providers Care Cardiac Nurse Name Role Phone Dena Alfonso APRN Primary Care Provider [phone] Encounter Details Date Type Department Care Team (Late Contact Info) Description 12/25/2019 Orders Only [place]ematology [place] [address] El Bernardo MD [facility] [place] [address] Social History Tobacco Use Types Packs/Day Years [...] AM EDT Office Visit Hematology/Oncology at [address] [phone] El Bernardo MD [facility] [place] [address] Linda Tamayo APRN [address] [place] [address] DR HEMATOLOGY [place] [address] 04/21/2024 8:00 AM EST Appointment Mammography/[place] [address] Linda Tamayo APRN [address] [place] [address] DR HEMATOLOGY AND ONCOLOGY [place], [place] [id number] documented as of this encounter Visit Diagnoses Not on filedocumented in this encounter Care Teams Cardiac Nurse Relationship Specialty Start Date End Date Dena Alfonso APRN [address] [place], [place] [address] PCP - General Geriatric Medicine 10/12/16 documented as of this encounter
--- OUTSIDE RECORDS SUMMARY | 2024-02-27 12:43 | XMS_ITS | Encounter Summary ---
Author Organization [facility] Address [facility] [place] [address] Care Team Providers Care Review Engineer Name Role Phone Dena Alfonso APRN Primary Care Provider [phone] Encounter Details Date Type Department Care Team (Latest Contact Info) Description 01/10/2018 12:02 PM EDT - 01/10/2018 12:57 PM EDT Hospital [place] [address] El Bernardo MD [facility] [place] [address] Encounter for screening mammogram for breast cancer Discharge Disposition: Home Social History Tobacco Use [...] NEEDED 3 12/12/2017 fluticasone (FLONASE) 50 mcg/actuation [place], Suspension 1 spray by Each Nare route [...] 11:00 AM EDT Office Visit Hematology/Oncology at [address] [phone] El Bernardo MD [facility] [place] [place] [address] [address] HEMATOLOGY AND ONCOLOGY [place], [place] [address] 04/21/2024 8:00 AM EST Appointment Mammography/[place] [address] [address] HEMATOLOGY AND ONCOLOGY [place], [place] [address] documented as of this encounter Procedures Procedure Name Priority Date/Time Associated Diagnosis Comments MAMMO SCREENING CAD AND JEAN BILATERAL Routine 01/10/2018 12:51 PM EDT Encounter for screening mammogram for breast cancer documented in this encounter Results * Mammo Screening Cad and Jean Bilateral (01/10/2018 12:51 PM EDT) Anatomical Region Laterality Modality Breast Bilateral Mammography Narrative 01/10/2018 2:17 PM EDT REASON FOR EXAM: Screening. History of left breast cancer. TECHNIQUE: CC and MLO views were obtained of both breasts. Computer aided detection was used. 3D tomosynthesis images were obtained in addition to 2D images. Comparison: The study is compared with prior images. FINDINGS: Breast density:There are scattered areas of fibroglandular density. There are no suspicious microcalcifications, masses, or areas of distortion. There are post treatment changes in the left breast. CONCLUSION: No mammographic evidence of malignancy. RECOMMENDATION: Routine screening. BIRADS CATEGORY 2: BENIGN FINDINGS * ??Medical organizations agree that annual screening mammography beginning at age 40 saves the most lives. * ??The risks of screening are negligible compared to dying from breast cancer or suffering from more aggressive treatment required when detected at a later stage. * ??No woman is at low risk for breast cancer. * ??Some women, because of their family history, a genetic tendency, or certain other factors, should be screened with breast MRI along with mammograms. (The number of women who fall into this category is very small). The patient and health care provider should discuss the patient history and decide if earlier screening and breast MRI are appropriate. * ??Screening should continue as long as a woman is in good health and is expected to live 10 years or longer. * ??Screening mammography may not detect 10-15% of breast cancers. * ??Women should report any breast changes to a health care provider right away. El Bernardo MD IMG MAMMO ORDERABLES documented in this encounter Visit Diagnoses Diagnosis Encounter for screening mammogram for breast cancer documented in this encounter Care Teams Review Engineer Relationship Specialty Start Date End Date Dena Alfonso APRN [address] [place] [address] PCP - General Geriatric Medicine 10/12/16 documented as of this encounter
--- OUTSIDE RECORDS SUMMARY | 2024-02-27 12:43 | XMS_ITS | Encounter Summary ---
Author Organization [facility] Address [facility] [place] [address] Care Team Providers Care Horse Exerciser Name Role Phone Dena Alfonso APRN Primary Care Provider [phone] Encounter Details Date Type Department Care Team (Late st Contact Info) Description 02/23/2020 Telephone Cardiology at [address] [phone] Delma Clakr RN [facility] Social History Tobacco Use Types Packs/Day Years [...] encounter Miscellaneous Notes * Telephone Encounter - Delma Clark RN - 02/23/2020 8:11 AM EDT Rebeca said that this weekend her heart was racing and she pasted out. Yesterday she had a bad headache while she was driving and she had to pull off due to loss her vision. She says that she see's due to cardiomegaly which she thinks that she got from her chemotherapy. She was told that her heart was back to normal. She wanted to know if it was possible that her cardiomegaly had returned and is causing her heart to race and her blurry vision. She see's but due tothe virus she has not been seen lately. I told her that I would send a note and ask him. I will call with his answer. Rebeca agreed with the plan. documented in this encounter Plan of Treatment Upcoming Encounters Date Type Department Care Team (Late st Contact Info) Description 03/27/2024 11:00 AM EDT Office Visit Hematology/Oncology at [address] [phone] El Bernardo MD [facility] [address] [address] [place] [address] 04/21/2024 8:00 AM EST Appointment Mammography/[place] [address] [address] [place] [address] documented as of this encounter Visit Diagnoses Not on filedocumented in this encounter Care Teams Horse Exerciser Relationship Specialty Start Date End Date Dena Alfonso APRN [address] [place] [address] PCP - General Geriatric Medicine 10/12/16 documented as of this encounter
--- OUTSIDE RECORDS SUMMARY | 2024-02-27 12:43 | XMS_ITS | Encounter Summary ---
Author Organization [facility] Address [facility] [place] [address] Care Team Providers Care Services Rep Name Role Phone Dena Alfonso APRN Primary Care Provider Encounter Details Date Type Department Care Team (Late Contact Info) Description 12/25/2019 Orders Only Hematology/Oncology at [address] [phone] El Bernardo MD [facility] [address] [place] [address] Malignant neoplasm of left breast in female, [...] AM EDT Office Visit Hematology/Oncology at [address] [phone] El Bernardo MD [facility] [place] [place] [address] Linda Tamayo APRN [address] [place] [address] [place] [address] 04/21/2024 8:00 AM EST Appointment Mammography/[place] [address] Linda Tamayo APRN [address] [place] [address] DR HEMATOLOGY AND ONCOLOGY [place], [place] [address] documented as of this encounter Visit Diagnoses Diagnosis Malignant neoplasm of left breast in female, estrogen receptor negative, unspecified site of breast documented in this encounter Care Teams Services Rep Relationship Specialty Start Date End Date Dena Alfonso APRN [address] [place] [address] PCP - General Geriatric Medicine 10/12/16 documented as of this encounter
--- OUTSIDE RECORDS SUMMARY | 2024-02-27 12:43 | XMS_ITS | Encounter Summary ---
Author Organization [facility] Address [facility] [place] [address] Care Team Providers Care Bindery Leadperson Name Role Phone KadenMikeyDena SURGICAL INSTRUMENT MAKER Primary Care Provider [phone] Encounter Details Date Type Department Care Team (Latest Contact Info) Description 02/05/2019 2:45 PM EDT - 02/05/2019 11:59 PM EDT Hospital Encounter Mammography/DXA at [facility] [place] [place] [address] Dena Alfonso APRN [address] [place] [address] Encounter for screening mammogram for breast cancer [...] Sig Dispensed Refills Start Date End Date ONETOUCH VERIO Strip USE TO TEST DAILY. [...] NEEDED 3 12/12/2017 fluticasone (FLONASE) 50 mcg/actuation [place], Suspension 1 spray by Each Nare route [...] AM EDT Office Visit Hematology/Oncology at [address] [phone] El Bernardo MD [facility] [place] [address] Linda Tamayo [address] [place] [address] 04/21/2024 8:00 AM EST Appointment Mammography[place] [address] [address] [place] [address] documented as of this encounter Procedures Procedure Name Priority Date/Time Associated Diagnosis Comments MAMMO SCREENING CAD AND JEAN BILATERAL Routine 02/05/2019 3:09 PM EDT Encounter for screening mammogram for breast cancer documented in this encounter Results * Mammo Screening Cad and Jean Bilateral (02/05/2019 3:09 PM EDT) Anatomical Region Laterality Modality Breast Bilateral Mammography Narrative 02/05/2019 3:52 PM EDT EXAMINATION: MAMMO SCREENING CAD AND JEAN BILATERAL REASON FOR EXAM: Screening. History of left [...] evidence of malignancy. RECOMMENDATION: Routine annual screening. BIRADS CATEGORY 2: BENIGN FINDINGS * [...] to a health care provider right away. Thank you for letting us participate in the care of this patient. For questions regarding this report, please contact the number below. ? Dena Alfonso APRN IMG MAMMO ORDERABLE S documented in this encounter Visit Diagnoses Diagnosis Encounter for screening mammogram for breast cancer documented in this encounter Care Teams Bindery Leadperson Relationship Specialty Start Date End Date Dena Alfonso APRN [address] [facility] [place] [address] PCP - General Geriatric Medicine 10/12/16 documented as of this encounter
--- OUTSIDE RECORDS SUMMARY | 2024-02-27 12:43 | XMS_ITS | Encounter Summary ---
Author Organization [facility] Address [facility] [place] [address] Care Team Providers Care Medication Specialist Name Role Phone Dena Alfonso APRN Primary Care Provider [phone] Reason for Visit * Reason Comments Follow-up Skin Check Encounter Details Date Type Department Care Team (Late st Contact Info) Description 08/05/2018 2:00 PM EST Office Visit Dermatology at [address] [phone] Miles Bowman MD [address] [place] [address], [place] [address] Irritant hand dermatitis Social History Tobacco Use [...] Progress Notes * Miles Bowman MD - 08/05/2018 2:00 PM EST Problem: 1. Follow-up irritant hand dermatitis 2. History of seasonal allergies Rebeca follows up and her hands look better but she still having problems with eczema. She remindsme that she has grandchildren that she helps to change diapers and care for. 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 She wonders how long to use the the prescription betamethasone ointment. She been using his CeraVe twice a day Physical examination reveals a pleasant 57-year-old woman who continues to have irritant dermatitison the palmar hands and with some lateral finger hyperkeratosis and fissuring. She has in the past had involvement on the aspects of the heels of her feet as well. Assessment and plan: Irritant hand dermatitis, with psoriasiform changes also with foot involvement 1. Stressed again washing with mild soap. She is using basis. Uses at work as well 2. Continue betamethasone dipropionate ointment applying this on a twice daily basis to affected areas until they clear and then use CeraVe cream wear cotton gloves overnight 3. Recommend when doing wet work around the house and washing dishes which she does by hand, that she should wear cotton gloves with overlying latex free vinyl gloves that she could get from [employer]. I gave her the [employer] information and ordering form 4. Continue with CeraVe cream using twice a day. 5. Discussed the factors that are making her hands worse and try to help her give her insight and ways to avoid these factors. 6. Strongly would advise against a repeat course of prednisone particular today as it usually launches one into a roller coaster up-and-down course of flaring hand dermatitis. CC: Dena Chapman APRN documented in this encounter Plan of Treatment Upcoming Encounters Date Type Department Care Team (Late st Contact Info) Description 03/27/2024 11:00 AM EDT Office Visit Hematology/Oncology at [address] [phone] El Bernardo MD [facility] [place] [place] [address] Linda Tamayo APRN [address] [place] [address] DR HEMATOLOGY AND ONCOLOGY [place], [place] [address] 04/21/2024 8:00 AM EST Appointment Mammography/[place] [address] Linda Tamayo APRN [address] [place] [address] DR HEMATOLOGY AND ONCOLOGY [place], [place] [id number] documented as of this encounter Visit Diagnoses Diagnosis Irritant hand dermatitis Contact dermatitis and other eczema, due to unspecified cause documented in this encounter Care Teams Medication Specialist Relationship Specialty Start Date End Date Dena Alfonso APRN [address] [place] [address] PCP - General Geriatric Medicine 10/12/16 documented as of this encounter
--- OUTSIDE RECORDS SUMMARY | 2024-02-27 12:43 | XMS_ITS | Encounter Summary ---
Author Organization [facility] [place] [address] Care Team Providers Care Forest Ranger Technician Name Role Phone Dena Alfonso LIZABETH Primary Care Provider [phone] Reason for Referral * Physical Therapy (Routine) - Specialty Diagnoses / Procedures Referred By Mariah tate Referred To Contact Physical Therapy Diagnoses Malignant 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, unspecified site of breast Bettie Downing APRN [address] [place] [address] Referral ID Status Reason Start Date Expiration Date V isits Requested Visits Authorized [id number] Evaluate and Treat 10/12/2016 04/10/2017 12 12 Encounter Details Date Type Department Care Team (Late st Contact Info) Description 10/12/2016 1:45 PM EDT Office Visit Hematology/Oncology at [address] [phone] Bettie Downing APRN [address] [place] [address] Malignant 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, unspecified site of breast Social History Tobacco [...] Sign Reading Time Taken Comments Blood Pressure 122/72 10/12/2016 1:53 PM EDT Pulse 74 10/12/2016 1:53 PM EDT Temperature 36.7 ??C (98.1 ??F) 10/12/2016 1:53 PM ED T Respiratory Rate 16 10/12/2016 1:53 PM EDT Oxygen Saturation 98% 10/12/2016 1:53 PM EDT Inhaled Oxygen Concentration - - Weight 85.7 kg (189 lb) 10/12/2016 1:53 PM EDT Height 167.6 cm (5' 5.98) 10/12/2016 1:53 PM ED T Body Mass Index 30.52 10/12/2016 1:53 PM EDT documented in this encounter Progress Notes * Btetie Downing, SAFETY TEACHER - 10/12/2016 1:45 PM EDT Subjective: Patient ID: Rebeca Hernández is a 55 y.o. female. Problem List: 1. Cancer of [...] with heterologous chondroid differentiation Tumor Grade: High Ebceby-Cjvtz-Vlrqmexadx Score: 9 Tubular Differentiation: 3 Mitotic Rate: [...] carcinoma: 4 Estrogen/Progestin receptors: ER immunoreactivity: Negative TX immunoreactivity: Negative HER2/yeyo expression by FISH: NEGATIVE [...] same BRCA1 alteration found in her mother ([id number]). Prophylactic BSO 04/2013. Path - Right and left fallopian tubes and ovaries (bilateral salpingo-oophorectomy): No evidence of malignancy. 3. TAPE TRANSFERRER History: The patient is G4, P3 with [...] On presentation today, she has no new issues to report for herself. Mother 82yrs old had 2nd cancerin other breast with subsequent mastectomy that did not go smoothly. Therefore pt has decided against prophylactic mastectomy. Review of Systems Constitutional: Positive for fatigue. Negative for activity change, appetite change, chills, fever and unexpected weight change. Eyes: Negative. Respiratory: Negative. Cardiovascular: Negative. Gastrointestinal: Negative. Genitourinary: Negative. Musculoskeletal: Positive for back pain. Neurological: Negative. Psychiatric/Behavioral: Negative. BP 122/72 (Patient Position: Sitting) Pulse 74 Temp 36.7 ??C (98.1 ??F) (Oral) Resp 16 Ht 167.6 cm (5' 5.98) Wt 85.7 kg (189 lb) SpO2 98% BMI 30.52 kg/m2 Wt Readings from Last 3 Encounters: 10/12/16 85.7 kg (189 lb) 05/22/16 84.4 kg (186 lb) 04/12/16 83 kg (183 lb) Objective: Physical Exam Constitutional: She is [...] no masses in either breast. Nipples flat, no discharge. Some tenderness inferior aspect of right breast. Musculoskeletal: Normal range of motion. She [...] Her behavior is normal. Vitals reviewed. Labs: 10/12/16 CBC: WBC 4.07 hemoglobin 13 platelets 249 CMP: Sodium 141 potassium 3.8 BUN 14 creatinine 0.89 glucose 1:15 calcium 8.6 total bili 0.45 AST 20 ALT 22 alkaline phosphatase 67 total protein 7.2 albumin 3.8 L-spine plain films 08/17/15 - IMPRESSION: ??Multilevel degenerative disease of the lumbar spine. Assessment and Plan: Ms. Hernández is a [...] recommended in [address] Armstrong. In trying to schedule that however, the order did not go through the system because is says that associated diagnoses do not qualify for coverage. She is overdue for her next mammogram which she would like to have up here rather than [facility]. I will arrange for this and she is also decliningMRI due to the fact that whenever she has an MRI-he has a subsequent procedure which comes up negative. She understands that this is likely due to her genetic abnormality which predisposes her to another primary breast cancer. She would still prefer to have her mammogram appears. I have put in a referral for that, as well as for physical therapy to help mobilize the scar tissue on her left breastto alleviate the discomfort associated with any palpation. As noted, she is positive for BRCA-1 mutation. She is s/p prophylactic oophorectomy. Testing for her daughter was discussed previously who is in her early 20s. The patient says they have discussed itand she does not want to be tested now but may change her mind. Bettie Downing, MSN, DRUG DISCOVERY INFORMATICS SPECIALIST, AOCN Hematology/Oncology Nurse Practitioner [place], [place] [phone] documented in this encounter Plan of Treatment Upcoming Encounters Date Type Department Care Team (Late st Contact Info) Description 03/27/2024 11:00 AM EDT Office Visit Hematology/Oncology at [address] [phone] El Bernardo MD [facility] [place] [address] Linda Tamayo [address] HEMATOLOGY AND ONCOLOGY [place], [place] [address] 04/21/2024 8:00 AM EST Appointment Mammography/[place] [phone] Linda Tamayo [address] HEMATOLOGY AND ONCOLOGY [place], [place] [id number] Scheduled Referrals Name Type Priority Associated Diagnoses Orde r Schedule Referral to Physical Therapy Outpatient Referral Routine Malignant 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, unspecified site of breast Ordered: 10/12/2016 documented as of this encounter Procedures Procedure Name Priority Date/Time Associated Diagnosis Comments MAMMOGRAM SCAN 10/23/2016 12:00 AM EDT LAB SCAN 10/12/2016 12:00 AM EDT documented in this encounter Results * SCAN DOC: MAMMOGRAM (10/23/2016 12:00 AM EDT) Anatomical Region Laterality Modality Other Narrative 10/23/2016 12:00 AM EDT Ordered by an unspecified provider. Scanning Provider MEDIA MGR SCAN EXT O RDR/RSLT * SCAN DOC: LAB (10/12/2016 12:00 AM EDT) Narrative 10/12/2016 12:00 AM EDT Ordered by an unspecified provider. Scanning Provider MEDIA MGR SCAN EXT O RDR/RSLT documented in this encounter Visit Diagnoses Diagnosis Malignant 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, unspecified site of breast documented in this encounter Care Teams Forest Ranger Technician Relationship Specialty Start Date End Date Dena Alfonso APRN [address] [place] [address] PCP - General Geriatric Medicine 10/12/16 documented as of this encounter
--- OUTSIDE RECORDS SUMMARY | 2024-02-27 12:43 | XMS_ITS | Encounter Summary ---
Author Organization [facility] Address [facility] [place] [address] Care Team Providers Care Public Health Assistant Name Role Phone Dena Alfonso APRN Primary Care Provider [phone] Reason for Visit * Reason Comments Follow-up Skin Check * Consultation (Routine) - Specialty Diagnoses / Procedures Referred By Mariah tate Referred To Contact Dermatology Diagnoses Dermatitis, unspecified Eczema of hand Procedures Consult Araceli Carmona MD [address] [place] [address] Miles Bowman MD [address] [place] [address], [place] [address] Referral ID Status Reason Start Date Expiration Date V isits Requested Visits Authorized [id number] 12/04/2017 12/04/2018 1 1 Encounter Details Date Type Department Care Team (Late st Contact Info) Description 02/10/2018 4:00 PM EDT Office Visit Dermatology at [address] [phone] Miles Bowman MD [address] [place] [address], [place] [address] Irritant hand dermatitis Social History Tobacco Use [...] Progress Notes * Miles Bowman MD - 02/10/2018 4:00 PM EDT Problem: 1. Irritant hand dermatitis 2. History of seasonal allergies Rebeca follows up after last being seen in 2017. She did not find the fluocinonide ointment particularly helpful. She is switching tried different topicals and her hands particular right hand in thepalmar aspect continue to wax and wane. She was given a course of prednisone in November by her PCP andhad temporary improvement but then flaring when she stopped it. She still works where she must washhands frequently. 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 She was wash her hands frequently. Physical examination was a pleasant 57-year-old woman who is an irritant hand dermatitis on the distal palmar hand on the right with some intertriginous finger webspace involvement as well. Her left hand is largely uninvolved. Some cracking and fissuring on that right palmar hand. Additionally she has some cracking and fissuring along the lateral aspects of the heels of both feet. Assessment and plan: Irritant hand dermatitis 1. Recommend washing with mild soap. She uses various soaps many of them are antibacterial during her day. She should obtain Cetaphil cleansing lotion as a soap substitute and carry with her and use it when she needs to wash her hands 2. Recommend that we begin betamethasone dipropionate ointment apply this on a q. at bedtime basis to active dermatitic areas and wear cotton gloves overnight 3. When hand dermatitis is mostly quiescent use CeraVe cream in the 1 pound jar on a nightly basis,also under cotton glove occlusion to maintain control. 4. Discussed with patient sensitive skin care precautions. 5. Return to clinic in 2 months for repeat check may cancel if doing well. 6. Explained my desire to avoid courses of prednisone given the roller coaster effect it tends to predispose to. Cc: Dena Chapman APRN documented in this encounter Plan of Treatment Upcoming Encounters Date Type Department Care Team (Late st Contact Info) Description 03/27/2024 11:00 AM EDT Office Visit Hematology/Oncology at [address] [phone] El Bernardo MD [facility] [place] [address] [address] HEMATOLOGY [place] [address] 04/21/2024 8:00 AM EST Appointment Mammography[place] [address] [address] HEMATOLOGY AND ONCOLOGY [place], [place] [address] documented as of this encounter Visit Diagnoses Diagnosis Irritant hand dermatitis Contact dermatitis and other eczema, due to unspecified cause documented in this encounter Care Teams Public Health Assistant Relationship Specialty Start Date End Date Dena Alfonso APRN [address] [place] [address] PCP - General Geriatric Medicine 10/12/16 documented as of this encounter
--- OUTSIDE RECORDS SUMMARY | 2024-02-27 12:43 | XMS_ITS | Encounter Summary ---
Author Organization [facility] Address [facility] [place] [address] Care Team Providers Care Logistics And Planning Manager Name Role Phone Dena Alfonso LIZABETH Primary Care Provider [phone] Reason for Visit * Reason Onset Date Comments Medication Refill 05/27/2020 Encounter Details Date Type Department Care Team (Late Contact Info) Description 05/27/2020 Refill Dermatology at [address] [phone] Sydni Castillo LPN Social History Tobacco Use Types Packs/Day [...] AM EDT Office Visit Hematology/Oncology at [address] [phone] El Bernardo MD [facility] [place] [address] Linda Tamayo APRN [address] [place] [address] [place] [address] 04/21/2024 8:00 AM EST Appointment Mammography/[place] [phone] Linda Tamayo APRN [address] [place] [address] DR HEMATOLOGY AND ONCOLOGY [place], [place] [id number] documented as of this encounter Visit Diagnoses Not on filedocumented in this encounter Care Teams Logistics And Planning Manager Relationship Specialty Start Date End Date Dena Alfonso APRN [address] [place], [place] [address] PCP - General Geriatric Medicine 10/12/16 documented as of this encounter
--- OUTSIDE RECORDS SUMMARY | 2024-02-27 12:44 | XMS_ITS | Encounter Summary ---
Author Organization [facility] Address [facility] [place] [address] Care Team Providers Care Nail Specialist Name Role Phone Robert Hummel MD Primary Care Provider [phone] Encounter Details Date Type Department Care Team (Late st Contact Info) Description 10/27/2015 Telephone Allergy at [facility] [place] [phone] Trinidad Alvarado, RN Social History Tobacco Use Types Packs/Day [...] encounter Miscellaneous Notes * Telephone Encounter - Trinidda Alvarado, RN - 10/27/2015 3:23 PM EDT 1530: Pt called allergy dept. Received Allergy shots today. Driving home to [facility] felt confused, funny. Still feels like she has the flu. Nauseous, but was able to eat. A little SOB while sitting in chair. Does not feel so SOB that she needs to take her Epi pen. Throat scratchy but swallowing well. Face not swollen as her first rx to [facility].. NEYDA Whittaker is red and itchy but not much more then after her shot. Recommendation was to go to her local ED, as she was having throat and resp symptoms. Her son is home with her and she has her epi pen but does not feel that she needs it now. She does not feel as if she needs to go to the hospital either. She is just reporting in, thinking she should not have anymore allergy shots. Meri during this season, everyone in her area is mowing their lawns. Rec. again she go to her ED meri if she gets any worse. 1615 Return call to Rebeca to again rec. she go to her ED. No answer, message left. 1630 Reached Rebeca- again stated with resp issues and scratchy throat she should go to the ED. She said she was going to take her benadryl, zyrtek, and stay inside in the air conditioning. documented in this encounter Plan of Treatment Upcoming Encounters Date Type Department Care Team (Late st Contact Info) Description 03/27/2024 11:00 AM EDT Office Visit Hematology/Oncology at [address] [phone] El Bernardo MD [facility] [place] [address] [address] [place] [address] 04/21/2024 8:00 AM EST Appointment Mammography/[place] [address] [address] HEMATOLOGY AND ONCOLOGY [place], [place] [address] documented as of this encounter Visit Diagnoses Not on filedocumented in this encounter Care Teams Nail Specialist Relationship Specialty Start Date End Date Robert Hummel MD PCP - General General Internal Medicine 08/05/1511/16 documented as of this encounter
--- OUTSIDE RECORDS SUMMARY | 2024-02-27 12:44 | XMS_ITS | Encounter Summary ---
Author Organization [facility] [place] [address] Care Team Providers Care Past Due Accounts Clerk Name Role Phone Raoul Michelle YADIRA Primary Care Provider [phone] Reason for Visit * Reason Comments Immunotherapy Encounter Details Date Type Department Care Team (Latest Contact Info) Description 03/30/2015 2:15 PM EDT Clinical Support Allergy at [facility] [place] [address] Allergic rhinitis due to pollen; Allergic rhinitis due to mold; Allergic rhinitis due to dust mite Social History Tobacco Use Types Packs/Day Years [...] as of this encounter Progress Notes * Ankita Guzmán LPN - 03/30/2015 2:16 PM EDT Expand All Collapse All Documentation of screening pre-immunotherapy questionnaire responses 1. Have you had increased asthma symptoms(chest tightness,increased cough,wheezing or shortness of breath) in the past week? No 2. Have you had increased allergy symptoms(itching eyes or nose,sneezing,runny nose,post nasal drip, or throat clearing) in the past week? No 3. Have you had a cold, respiratory tract infection, or flu-like symptoms in the past two weeks? No 4. Did you have any problems such as increased allergy or asthma symptoms, hives, or generalized itching within 12 hours of receiving your last injection? Yes. See notes dated 03-09,24 and 30 5. Are you on any new medications? Any new eye drops? Please specify. No 6. Have patient confirm that the name and date on his/her vials are correct. Yes Rebeca Hernández has come into the Allergy Clinic for allergy injection. No reported problems with last injections. Antihistamine taken as directed. Epipen brought to appointment. Injections given per Dr Warren's orders. Injections given: Building Extract: Mix A (mites) Dilution: yellow Dose: 0.05 ml Site: RUE Sub Q Rxn: c/o injection site being itchy. Benadryl cream applied. Extract: Mix B (mold) Dilution: yellow Dose: 0.05 ml Site: LUE Sub Q (U) Rxn: c/o injection site being itchy. Benadryl cream applied. Extract: Mix C Dilution: green Dose: 0.4 ml Site: LUE Sub Q (L) Rxn: c/o injection site being itchy. Benadryl cream applied. Pt was observed here in the waiting area for 30 minutes. No adverse side effects noted. Pt ambulated from clinic in stable condition. documented in this encounter Plan of Treatment Upcoming Encounters Date Type Department Care Team (Late st Contact Info) Description 03/27/2024 11:00 AM EDT Office Visit Hematology/Oncology at [address] [phone] El Bernardo MD [facility] [place] [address] Linda Tamayo [address] HEMATOLOGY AND ONCOLOGY [place], [place] [address] 04/21/2024 8:00 AM EST Appointment Mammography[place] [address] Linda Tamayo [address] HEMATOLOGY AND ONCOLOGY [place], [place] [phone] documented as of this encounter Visit Diagnoses Diagnosis Allergic rhinitis due to pollen Allergic rhinitis due to mold Allergic rhinitis due to dust mite documented in this encounter Care Teams Past Due Accounts Clerk Relationship Specialty Start Date End Date Michelle Silveira PA PCP - General 05/09/10 08/04/15 documented as of this encounter
--- OUTSIDE RECORDS SUMMARY | 2024-02-27 12:44 | XMS_ITS | Encounter Summary ---
Author Organization [facility] Address [facility] [place] [address] Care Team Providers Care Glost Tile Sorter Name Role Phone Robert Hummel MD Primary Care Provider [phone] Encounter Details Date Type Department Care Team (Latest Contact Info) Description 08/17/2015 9:39 AM EST - 08/17/2015 10:07 AM [facility] Hospital Encounter XRay at [address] [place] [address] El Bernardo MD [facility] [place] [address] Chronic lower back pain Discharge Disposition: Home Social History Tobacco [...] dose. Call 911. 2 each 1 06/16/2014 estradiol (VAGIFEM) 10 mcg TabletIndications:Kelsie pause Place 1 tablet vaginally twice a week. 8 tablet 11 04/28/2015 08/23/2020 montelukast (SINGULAIR) 10 mg Tablet Take 1 tab the night prior and night of receiving the allergy shots 20 tablet 11 03/04/2015 12/22/2015 fexofenadine (JANINA) 180 mg Tablet 1 tab daily prn allergies.Take 1 tab twice daily the day prior and day of receiving allergy shots. 30 tablet 11 03/04/2015 07/02/2017 PATANOL 0.1 % Drops INSTILL ONE DROP TO THE AFFECTED EYE(S) TWICE A DAY NEEDED FOR ALLERGIES 5 mL 5 12/01/2014 02/10/2018 diphenhydrAMINE (BENADRYL) 25 mg capsule Take 25 mg by mouth every 6 hours as needed. 04/12/2016 ibuprofen (ADVIL;MOTRIN) 600 mg tablet Take 1 [...] 11:00 AM EDT Office Visit Hematology/Oncology at [address] [phone] El Bernardo MD [facility] [place] [address] [address] HEMATOLOGY AND ONCOLOGY [place], [place] [address] 04/21/2024 8:00 AM EST Appointment Mammography/[place] [address] Linda Tamayo [address] HEMATOLOGY AND [place]OGY [place], [place] [address] documented as of this encounter Procedures Procedure Name Priority Date/Time Associated Diagnosis Comments XR LUMBAR SPINE 2 OR 3 VIEWS Routine 08/17/2015 9:50 AM EST Chronic lower back pain documented in this encounter Results * XR Lumbar Spine 2 Or 3 Views (GENERIC) (08/17/2015 9:50 AM EST) Anatomical Region Laterality Modality L-spine N/A Digital Radiogra phy Impressions 08/17/2015 11:09 AM EST IMPRESSION: Multilevel degenerative disease of the lumbar spine. Narrative 08/17/2015 11:09 AM EST EXAMINATION: XR LUMBAR SPINE 2 OR 3 VIEWS CLINICAL HISTORY: h/o breast cancer, low back pain TECHNIQUE: AP and lateral lumbar spine COMPARISON: None FINDINGS: There are five nonrib-bearing lumbar-type vertebrae. A scoliosis of the lumbar spine is present, centered at approximately L4, with the convexity to the left. Multilevel degenerative disease of the lumbar spine is present. There is disc space narrowing at L2-3 with associated endplate sclerosis. Small anterior osteophytes are present at L1-L4. There is grade 1 retrolisthesis of L2 on L3. No osteolytic, osteoblastic or destructive bone lesion is seen. Procedure Note Addi Peña MD - 08/17/2015 EXAMINATION: XR LUMBAR SPINE 2 OR 3 VIEWS CLINICAL HISTORY: h/o breast cancer, low back pain TECHNIQUE: AP and lateral lumbar spine COMPARISON: None FINDINGS: There are five nonrib-bearing lumbar-type vertebrae. A scoliosis of the lumbar spine is present, centered at approximately L4,with the convexity to the left. Multilevel degenerative disease of the lumbar spine is present. There isdisc space narrowing at L2-3 with associated endplate sclerosis. Smallanterior osteophytes are present at L1-L4. There is grade 1 retrolisthesis of L2 onL3. No osteolytic, osteoblastic or destructive bone lesion is seen. IMPRESSION IMPRESSION: Multilevel degenerative disease of the lumbar spine. El Bernardo MD IMG DX ORDERABLES documented in this encounter Visit Diagnoses Diagnosis Chronic lower back pain Lumbago documented in this encounter Care Teams Glost Tile Sorter Relationship Specialty Start Date End Date Robert Hummel MD PCP - General General Internal Medicine 08/05/1511/16 documented as of this encounter
--- OUTSIDE RECORDS SUMMARY | 2024-02-27 12:44 | XMS_ITS | Encounter Summary ---
Author Organization [facility] [place] [place] [address] Care Team Providers Care Mortgage Professional Name Role Phone Raoul Michelle YADIRA Primary Care Provider [phone] Reason for Visit * Reason Comments Immunotherapy Encounter Details Date Type Department Care Team (Latest Contact Info) Description 04/14/2015 10:30 AM EDT Clinical Support Allergy at [facility] [place] [address] Allergic rhinitis due to pollen; Allergic rhinitis [...] Progress Notes * Ankita Guzmán LPN - 04/14/2015 11:29 AM EDT Documentation of screening pre-immunotherapy questionnaire responses 1. Have you had increased asthma symptoms(chest tightness,increased cough,wheezing or shortness of breath) in the past week ? NO 2. Have you had increased allergy symptoms(itching eyes or nose,sneezing,runny nose,post nasal drip, or throat clearing) in the past week ? no 3. Have you had a cold, respiratory tract infection, or flu-like symptoms in the past two weeks ? yes), had a cold last week. 4. Did you have any problems such as increased allergy or asthma symptoms, hives, or generalized itching within 12 hours of receiving your last injection ? no 5. Are you on any new medications ? Any new eye drops ? Please specify 6. Have patient confirm that the name areand date on his/her vials are correct. yes Rebeca Hernández has come into the Allergy Clinic for allergy injection. No reported problems with the last shot. Antihistamine taken as directed. Epipen brought to appointment. Injections given per Dr Warren's orders. Last Doctors Appt:11/17/2014 Maintenance Achieved: building FEV1/Peak Flow-N/A Injections given: Building Extract: Mix A (F&P Mite) Dilution: yellow Dose: 0.05ml Site: LUE SUB Q Rxn: none Extract: Mix B (stemphyllium solani,aspergillus fumigatus) Dilution: yellow Dose: 0.05ml Site: RUE SUB Q (U) Rxn: none Extract: Mix C (kentucky blue grass,orchard grass,jessica grass,maple) Dilution: green Dose: 0.4ml Site: RUE SUB Q (L) Rxn: c/o itching at site. Benadryl cream applied Pt was observed here in the waiting area for 30 minutes. NO adverse side effects were noted. Pt ambulated from clinic in stable condition. documented in this encounter Plan of Treatment Upcoming Encounters Date Type Department Care Team (Late st Contact Info) Description 03/27/2024 11:00 AM EDT Office Visit Hematology/Oncology at [address] [phone] El Bernardo MD [facility] [place] [address] Linda Tamayo [address] HEMATOLOGY AND ONCOLOGY [place], [place] [address] 04/21/2024 8:00 AM EST Appointment Mammography/[place] [address] Linda Tamayo [address] [place] [address] documented as of this encounter Visit Diagnoses Diagnosis Allergic rhinitis due to pollen Allergic rhinitis due to mold Allergic rhinitis due to dust mite documented in this encounter Care Teams Mortgage Professional Relationship Specialty Start Date End Date Michelle Silveira PA PCP - General 05/09/10 08/04/15 documented as of this encounter
--- OUTSIDE RECORDS SUMMARY | 2024-02-27 12:44 | XMS_ITS | Encounter Summary ---
Author Organization [facility] Address [facility] [place] [address] Care Team Providers Care Auto Body Mechanic Apprentice Name Role Phone Robert Hummel MD Primary Care Provider Reason for Visit * Reason Comments Immunotherapy Encounter Details Date Type Department Care Team (Latest Contact Info) Description 10/12/2015 1:30 PM EDT Clinical Support Allergy at [facility] [place] [address] Allergic rhinitis due to pollen; Allergic rhinitis [...] Progress Notes * Ankita Guzmán LPN - 10/12/2015 1:51 PM EDT Documentation of screening pre-immunotherapy questionnaire responses 1. Have you had increased asthma symptoms(chest tightness,increased cough,wheezing or shortness of breath) in the past week ? NO 2. Have you had increased allergy symptoms(itching eyes or nose,sneezing,runny nose,post nasal drip, or throat clearing) in the past week ? yes 3. Have you had a cold, respiratory tract infection, or flu-like symptoms in the past two weeks ? no) 4. Did you have any problems such as increased allergy or asthma symptoms, hives, or generalized itching within 12 hours of receiving your last injection ? n/a 5. Are you on any new medications ? Any new eye drops ? Please specify__NONE 6. Have patient confirm that the name?? areand date on his/her vials are correct. ? yes Rebeca Hernández has come into the Allergy Clinic for allergy injection. No reported problems with the last shot. Antihistamine taken as directed. Epipen brought to appointment. Injections given per Dr Warren's orders. Epipen Expires: 05/2016 Last Doctors Appt: 08/04/2015 Maintenance Achieved: building Peak Flow-350 Injections given: Building Extract: Mix A (F&P Mite) Dilution: silver Dose: 0.2ml Site: left upper arm sq ?? Rxn: none Extract: Mix B (stemphyllium,aspergillus) Dilution: silver Dose: 0.2ml Site: right upper arm sq (u) Rxn: c/o site stinging 20 minutes into her 30minute wait. Ice applied to site with no effect of thestinging. Extract: Mix C (kentucky blue orchard grass,jessica grass,maple) Dilution: silver Dose: 0.2ml Site: right lower arm sq (l) Rxn: none ? Pt was observed here in the waiting area for 30 minutes.?? NO adverse side effects were noted.?? Ptambulated from clinic in stable condition. ? documented in this encounter Plan of Treatment Upcoming Encounters Date Type Department Care Team (Late st Contact Info) Description 03/27/2024 11:00 AM EDT Office Visit Hematology/Oncology at [address] [phone] El Bernardo MD [facility] [place] [address] [address] HEMATOLOGY AND ONCOLOGY [place], [place] [phone] 04/21/2024 8:00 AM EST Appointment Mammography[place] [address] [address] HEMATOLOGY AND ONCOLOGY [place], [place] [phone] documented as of this encounter Visit Diagnoses Diagnosis Allergic rhinitis due to pollen Allergic rhinitis due to mold Allergic rhinitis due to dust mite documented in this encounter Care Teams Auto Body Mechanic Apprentice Relationship Specialty Start Date End Date Robert Hummel MD PCP - General General Internal Medicine 08/05/1511/16 documented as of this encounter
--- OUTSIDE RECORDS SUMMARY | 2024-02-27 12:44 | XMS_ITS | Encounter Summary ---
Author Organization [facility] [place] [address] Care Team Providers Care Hospital Food Service Worker Name Role Phone Robert Hummel MD Primary Care Provider [phone] Reason for Visit * Reason Comments Immunotherapy Encounter Details Date Type Department Care Team (Latest Contact Info) Description 10/27/2015 10:15 AM EDT Clinical Support Allergy at [facility] [place] [address] Allergic rhinitis due to pollen; Allergic rhinitis [...] Progress Notes * Ankita Guzmán LPN - 10/31/2015 8:52 AM EDT Attempted to contact patient on 10/28/2015 and 10/31/2015 left message asking for a call back. Printed off Dr Warren's note with recommendations as to how she is to take her allergy medications. Will mail this note to patient as a reference as to how to take her medications. * Queenie Warren MD - 10/28/2015 1:44 PM EDT Reviewed Ankita Guzmán's note. Agree with patient holding shots until her followup visit on 12/01/15. Patient should call 911 and go to the local ER for symptoms of acute allergic reaction. In the interim, she can take the following for her allergies based on the recommendations from her last visit: - Take Neva 180mg once daily OR Zyrtec 10mg daily - Take Flonase 2 sprays in each nostril once daily - Take Astelin 2 drops in each nostril twice daily - Instill Patanol 1 drop in each eye twice daily If allergy symptoms persist, recommend taking montelukast 10mg nightly ( patient may need new Rx, since initially prescribed to be taken only with allergy shots). Message forwarded to the allergy nurse pool to contact patient with recommendations. * Ankita Guzmán LPN - 10/28/2015 8:17 AM EDT Called patient at 8:00am on 10/28/2015. Pt reports that she did not go to emergency last pm. She said she went to her local pharmacy and asked the pharmacist if she could take another zyrtec. She did take another zyrtec between 4-5pm last night. She reports that she started to feel better about 1 hour later after taking it. She reports that she always felt a little sick after her allergy shots she thought it was normal. Not feeling sick or having flu like symptoms today when asked. Pt said that her neighbors have been mowing there lawns and that is not helping her allergy symptoms. She will keep her appointment with Dr Warren on 12/01/2015 to go over her options in regarding her allergy shots. She is requesting a call back with directions in regards to what she should do about her allergy symptoms. She will continue taking all her allergy medicines as directed by Dr Warren. * Ankita Guzmán LPN - 10/27/2015 10:45 AM EDT Documentation of screening pre-immunotherapy questionnaire responses 1. Have you had increased asthma symptoms(chest tightness,increased cough,wheezing or shortness of breath) in the past week ? yes, c/o shortness of breath on/off. Shortness of breath worse with activity per patient. 2. Have you had increased allergy symptoms(itching eyes or nose,sneezing,runny nose,post nasal drip, or throat clearing) in the past week ? yes, c/o allergy symptoms, runny,itchy nose. 3. Have you had a cold, respiratory tract infection, or flu-like symptoms in the past two weeks ? yes), c/o feeling tired all the time. 4. Did you have any problems such as increased allergy or asthma symptoms, hives, or generalized itching within 12 hours of receiving your last injection ? yes, c/o of increase on allergy symptoms. 5. Are you on any new medications ? Any new eye drops ? Please specify_NONE 6. Have patient confirm that the name are and date on his/her vials are correct. yes Consulted with Dr Warren. PFT done per her orders. PFT appears to be normal. Will have it scanned into chart. Dr Warren ordered a decrease in all injections dose to 0.1ml due to being symptotic for allergy symptoms. Rebeca Hernández has come into the Allergy Clinic for allergy injection. See above questions 1,2,3,and 4. See comment below number 6. Dose decrease to 0.1ml of silver vial on all 3 allergy injections. Antihistamine taken as directed. Epipen brought to appointment. Injections given per Dr Warren's orders. Epipen Expires: 05/2016 Last Doctors Appt: 08/04/2015 Maintenance Achieved: building FEV1- 2.85, Peak Flow-350 Injections given: Building Extract: Mix A (mites) Dilution: silver Dose: 0.1ml Site: left upper arm sq Rxn: none Extract: Mix B (stemphyllium,aspergillus) Dilution: silver Dose: 0.1ml Site: right upper arm sq (u) Rxn: none Extract: Mix C ([place]ent[place] blue orchard grass,jessica grass,maple) Dilution: silver Dose: 0.1ml Site: right upper arm sq (l) Rxn: c/o area being itchy benadryl applied 5mm redness noted Pt was observed here in the waiting area for 30 minutes. Pt ambulated from clinic in stable condition. documented in this encounter Plan of Treatment Upcoming Encounters Date Type Department Care Team (Late st Contact Info) Description 03/27/2024 11:00 AM EDT Office Visit Hematology/Oncology at [address] [phone] El Bernardo MD [facility] [place] [address] [address] HEMATOLOGY AND ONCOLOGY [place], [place] [address] 04/21/2024 8:00 AM EST Appointment Mammography/[place] [address] [address] HEMATOLOGY AND ONCOLOGY [place], [place] [address] documented as of this encounter Visit Diagnoses Diagnosis Allergic rhinitis due to pollen Allergic rhinitis due to mold Allergic rhinitis due to dust mite documented in this encounter Care Teams Hospital Food Service Worker Relationship Specialty Start Date End Date Robert Hummel MD PCP - General General Internal Medicine 08/05/1511/16 documented as of this encounter
--- OUTSIDE RECORDS SUMMARY | 2024-02-27 12:44 | XMS_ITS | Encounter Summary ---
Author Organization [facility] Address [facility] [place] [address] Care Team Providers Care Hot Water Heater Installer Name Role Phone Robert Hummel MD Primary Care Provider [phone] Encounter Details Date Type Department Care Team (Late st Contact Info) Description 08/26/2015 3:00 PM EST Office Visit Hematology/Oncology at [address] [phone] El Bernardo MD [facility] [place] [address] Malignant 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, unspecified site of breast; BRCA positive; Abnormal magnetic resonance imaging of right breast Social History Tobacco Use Types Packs/Day [...] Sign Reading Time Taken Comments Blood Pressure 121/94 08/26/2015 3:04 PM EST Pulse 93 08/26/2015 3:04 PM EST Temperature 37.6 ??C (99.7 ??F) 08/26/2015 3:04 PM ES T Respiratory Rate 18 08/26/2015 3:04 PM EST Oxygen Saturation 98% 08/26/2015 3:04 PM EST Inhaled Oxygen Concentration - - Weight 85.9 kg (189 lb 5 oz) 08/26/2015 3:04 PM EST Height 167.6 cm (5' 5.98) 08/26/2015 3:04 PM ES T Body Mass Index 30.57 08/26/2015 3:04 PM EST documented in this encounter Progress Notes * El Bernardo MD - 08/25/2015 9:56 AM EST Subjective: Patient ID: Rebeca Hernández is a 54 y.o. female. Problem List: 1. 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 Prophylactic BSO 04/2013. Path - Right and left fallopian tubes and ovaries (bilateral salpingo-oophorectomy): No evidence of malignancy. 3. 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 Her breasts are sore following the mammogram and MRI. She says she has been more fatigued as well. She has pain in her lower back which is not new but is more prominent and affects her sleep. It improves over the course of the day. She has gone to PT in the past for back discomfort. She had a recent dexa scan and apparentlythere was some thinning of the bones but no intervention was recommended. doesn't have any particular complaints. The right breast discomfort that she had in 12/28 which led to a mammogram is gone. Her appetite is ok. She has gained some weight. She says she is trying to exercise. She has been goingto the gym but says she has had some SOB and is seeing cardiology. No particular areas of pain. Review of Systems Constitutional: Positive for fatigue. Negative for fever, chills, activity change, appetite change and unexpected weight change. Eyes: Negative. Respiratory: [...] no tenderness. There is no guarding. Genitourinary: Breast exam: Well healed incision in upper portion of left breast. Some mild thickening of the skinon the left and no masses in either breast. Nipples flat, no discharge. Some tenderness inferior aspect of right breast, possible secondary to imaging procedures done yesterday. Musculoskeletal: Normal range of motion. She exhibits [...] Her behavior is normal. Vitals reviewed. Labs: not done L-spine plain films 08/17/15 - IMPRESSION: ??Multilevel [...] trying to schedule that however, the order will not go through the system because is says that associated diagnoses do not qualify for coverage. It is not clear to me if this is because it will have been less than a year or if there is another issue. I spoke with the breast imaging center and staff could not provide other explanation. I talked with the patient about signing an ABN waiver for this and, if this is denied by insurance, she could cancel the test. She would prefer just to be seen in 6 months and talk about it then. As noted, she is positive for BRCA-1 mutation. She is s/p prophylactic oophorectomy. We talked about testing for her daughter who I believe is in her early 20s. The patient says they have discussed it and she does not want to be tested now but may change her mind. documented in this encounter Plan of Treatment Upcoming Encounters Date Type Department Care Team (Late st Contact Info) Description 03/27/2024 11:00 AM EDT Office Visit Hematology/Oncology at [address] [phone] El Bernardo MD [facility] [place] [address] Linda Tamayo, [address] HEMATOLOGY AND ONCOLOGY [place], [place] [id number] 04/21/2024 8:00 AM EST Appointment Mammography/[place] [address] HEMATOLOGY AND ONCOLOGY [place], [place] [id number] documented as of this encounter Visit Diagnoses Diagnosis Malignant 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, unspecified site of breast BRCA positive Genetic susceptibility to malignant neoplasm of breast Abnormal magnetic resonance imaging of right breast documented in this encounter Care Teams Hot Water Heater Installer Relationship Specialty Start Date End Date Robert Hummel MD PCP - General General Internal Medicine 08/05/152 12/30 documented as of this encounter
--- OUTSIDE RECORDS SUMMARY | 2024-02-27 12:44 | XMS_ITS | Encounter Summary ---
[facility] [place] [address] Care Team Providers Care Country Singer Name Role Phone Cande Kincaid APRN Primary Care Provider [phone] Encounter Details Date Type Department Care Team (Late Contact Info) Description 12/22/2015 [place] [phone] Trinidad Alvarado, RN Social History Tobacco Use [...] encounter Miscellaneous Notes * Telephone Encounter - Trinidad Alvarado RN - 12/22/2015 9:21 AM EDT Pt states she tried taking her Singular every night and it seems to work better then other meds. She only has an Rx for Singular 20 tabs, pre and post allergy shots. Would it be OK for her to take Singular every night, Flonase and her Patanol drops? She only is using Zyrtek when she is out in the [facility] home. Rx pended to Dr Warren. Pt aware. documented in this encounter Plan of Treatment Upcoming Encounters Date Type Department Care Team (Late Contact Info) Description 03/27/2024 11:00 AM EDT Office Visit Hematology/Oncology at [address] [phone] El Bernardo MD [facility] [place] [address] Linda Tamayo, [address] HEMATOLOGY AND ONCOLOGY [place], [place] [phone] 04/21/2024 8:00 AM EST Appointment Mammography/[place] [address] Linda Tamayo, [address] HEMATOLOGY AND ONCOLOGY [place], [place] [phone] documented as of this encounter Visit Diagnoses Not on filedocumented in this encounter Care Teams Country Singer Relationship Specialty Start Date End Date Cande Kincaid APRN PCP - General Family Medicine 12/13/15 05/21/16 documented as of this encounter
--- OUTSIDE RECORDS SUMMARY | 2024-02-27 12:44 | XMS_ITS | Encounter Summary ---
Author Organization [facility] [address] Care Team Providers Care Process Development Manager Name Role Phone Raoul Michelle YADIRA Primary Care Provider [phone] Reason for Visit * Reason Comments Immunotherapy Encounter Details Date Type Department Care Team (Latest Contact Info) Description 03/17/2015 10:30 AM EDT Clinical Support Allergy at [facility] [place] [address] Allergic rhinitis due to pollen; Allergic rhinitis [...] as of this encounter Progress Notes * Marley Bustos LPN - 03/17/2015 3:39 PM EDT Documentation of screening pre-immunotherapy questionnaire [...] your last injection? Yes. See notes dated 03-09, and 5. Are you on any new medications? Any new eye drops? Please specify. No 6. Have patient confirm that the name and date on his/her vials are correct. Yes Rebeca Hernández has come into the Allergy Clinic for allergy injection. A reported problem with the last grass injection see note dated 03-09-2015. Antihistamine taken as directed. Epipen brought to appointment. Injections given per Dr Warren's orders. Injections given: Building Extract: Mix A (mites) Dilution: yellow Dose: 0.05 ml Site: RUE Sub Q Rxn: none. Did complain of some itching. Extract: Mix B (mold) Dilution: yellow Dose: 0.05 ml Site: LUE Sub Q (U) Rxn: none Extract: Mix C Dilution: green Dose: 0.4 ml Site: LUE Sub Q (L) Rxn: None Pt was observed here in the waiting area for 30 minutes. No adverse side effects noted. Pt ambulated from clinic in stable condition. documented in this encounter Plan of Treatment Upcoming Encounters Date Type Department Care Team (Late st Contact Info) Description 03/27/2024 11:00 AM EDT Office Visit Hematology/Oncology at [address] [phone] El Bernardo MD [facility] [place] [address] Linda Tamayo [address] [place] [address] 04/21/2024 8:00 AM EST Appointment Mammography/[place] [address] Linda Tamayo [address] HEMATOLOGY AND ONCOLOGY [place], [place] [id number] documented as of this encounter Visit Diagnoses Diagnosis Allergic rhinitis due to pollen Allergic rhinitis due to mold Allergic rhinitis due to dust mite documented in this encounter Care Teams Process Development Manager Relationship Specialty Start Date End Date Michelle Silveira PA PCP - General 05/09/10 08/04/15 documented as of this encounter
--- OUTSIDE RECORDS SUMMARY | 2024-02-27 12:44 | XMS_ITS | Encounter Summary ---
Author Organization [facility] Address [facility] [place] [address] Care Team Providers Care Staff Mechanical Engineer Name Role Phone Raoul Michelle MAY Primary Care Provider [phone] Reason for Visit * Consultation (Routine) - Closed Specialty Diagnoses / Procedures Referred By Mariah tate Referred To Contact Cardiology Diagnoses cardiomyopathy Neo Jeffrey MD [address] [address] [facility] [address] [address] [place] [phone] Referral ID Status Reason Start Date Expiration Date V isits Requested Visits Authorized [id number] Closed Evaluate [facility] 05/04/2015 05/03/2016 1 1 Encounter Details Date Type Department Care Team (Late st Contact Info) Description 05/24/2015 10:00 AM EST Office Visit Cardiology at [address] [phone] Jose Govea MD [facility] [place] [address] Cardiomyopathy Social History Tobacco Use Types Packs/Day Years [...] Sign Reading Time Taken Comments Blood Pressure 102/80 05/24/2015 9:49 AM EST Pulse 84 05/24/2015 9:49 AM EST irreg Temperature - - Respiratory Rate - - Oxygen Saturation 96% 05/24/2015 9:4 9 AM EST on room air Inhaled Oxygen Concentration - - Weight 86.1 kg (189 lb 12.8 oz) 05/24/2015 9:49 AM EST Height 165.1 cm (5' 5) 05/24/2015 9:49 AM EST Body Mass Index 31.58 05/24/2015 9:49 AM EST documented in this encounter Progress Notes * Jose Govea MD - 05/24/2015 9:59 AM EST HPI: Rebeca Hernández is a 54 y.o. year old female with a pmhx of brca and nonischemic cardiomyopathy, (normal heart catheterization in 2011) coming for evaluation. Echocardiogram was performed today, demonstrating an ejection fraction of 65%, with normal strain patterns. She was seen in the ER twice in april for chest pain and shortness of breath. Pain was sharp, shoulder blade, jaw and chest, associated with indigestion and burping. She does exercise, mostly walking, no chest pain with this. She walks 40 minutes a day, but has some problems with incline. The diagnosis of cm came from an echo performed. A heart cath was performed which was normal per patient, but previous echo demonstrated mildly reduced left ventricular ejection fraction of 45%. This has subsequently improved. Chemotherapy was back in 2003. The patient was concerned that her shortness of breath with exercise was possibly the return of the cardiomyopathy and heart failure. PMHX Patient Active Problem List Diagnosis Code ??? Breast cancer C50.919 ??? Depression F32.9 ??? Chest pain R07.9 ??? Cardiomyopathy I42.9 ??? GERD (gastroesophageal reflux disease) K21.9 ??? Palpitations R00.2 ??? History of left knee surgery Z98.89 ??? BRCA1 positive Z15.01 ??? Nevus D22.9 ??? Environmental allergies Z91.048 ??? Chronic allergic rhinitis J30.9 ??? Allergic rhinoconjunctivitis J30.9, H10.10 ??? Diabetes mellitus type 2, diet-controlled E11.9 MEDS: reviewed SOCHX History Social History ??? Marital Status: Spouse Name: N/A Number of Children: N/A ??? Years of Education: N/A Social History Main Topics ??? Smoking status: Never Smoker ??? Smokeless tobacco: Never Used Comment: only exposure was as a child ??? Alcohol Use: No Comment: Occasionally ??? Drug Use: No ??? Sexual Activity: Not Currently Other Topics Concern ??? None Social History Narrative FAMHX Family History Problem Relation Age of Onset ??? Allergic Rhinitis Father ??? Asthma Neg Hx ROS Negative for blood in stool or urine. No fevers or chills. No recent syncope. Otherwise all other systems were reviewed and found to be negative. Physical Examination Filed Vitals: 05/24/15 0949 BP: 102/80 Pulse: 84 General: no acute distress Behavioral: Alert and [...] rashes Neuro: muscle strength grossly = bilaterally LABS: Labs reviewed by myself No results found for this or any previous visit (from the past 24 hour(s)). Assessement and Plan: 54 year old female with brca, s/p chemo and radiation in 2003, history of reduced LV function but recovered to 60-65% with normal strain. 1. CM -- resolved, normal EF and and normal strain, okay to discontinue beta dmitry (pt with normal echo, bad allergies, wants to start allergy shots, has been off metoprolol for the previous two years) 2. Sob -- likely secondary to weight gain and exercise intolerance, trial of weight loss and increasing exercise frequency. If sob persists, will get stress echocardiogram 3. F/u 6 months or sooner if needed documented in this encounter Plan of Treatment Upcoming Encounters Date Type Department Care Team (Late st Contact Info) Description 03/27/2024 11:00 AM EDT Office Visit Hematology/Oncology at [address] [phone] El Bernardo MD [facility] [place] [address] [address] HEMATOLOGY AND ONCOLOGY [place], [place] [phone] 04/21/2024 8:00 AM EST Appointment Mammography/[place] [phone] Linda Tamayo[address] HEMATOLOGY AND ONCOLOGY [place], [place] [phone] documented as of this encounter Visit Diagnoses Diagnosis Cardiomyopathy Other primary cardiomyopathies documented in this encounter Care Teams Staff Mechanical Engineer Relationship Specialty Start Date End Date Michelle Silveira PA PCP - General 05/09/10 08/04/15 documented as of this encounter
--- OUTSIDE RECORDS SUMMARY | 2024-02-27 12:44 | XMS_ITS | Encounter Summary ---
[place] [address] Care Team Providers Care Parts Washer Name Role Phone Michelle Silveira Primary Care Provider [phone] Reason for Referral * Diagnostic Test (Routine) - Closed Specialty Diagnoses / Procedures Referred By Mariah tate Referred To Contact Cardiology Diagnoses Cardiomyopathy Shortness of breath Heartburn Procedures Echocardiogram Transthoracic(Leb) Cande Kincaid APRN [address] [place] [address] [facility] [place] [address] Referral ID Status Reason Start Date Expiration Date V isits Requested Visits Authorized [id number] Closed Specialty Service Requested 05/13/2015 05/12/2016 1 1 Reason for Visit * Diagnostic Test (Routine) - Closed Specialty Diagnoses / Procedures Referred By Mariah tate Referred To Contact Cardiology Diagnoses Cardiomyopathy Shortness of breath Heartburn Procedures Echocardiogram Transthoracic(Leb) Cande Kincaid APRN [address] [place] [address] [facility] [place] [address] Referral ID Status Reason Start Date Expiration Date V isits Requested Visits Authorized [id number] Closed Specialty Service Requested 05/13/2015 05/12/2016 1 1 Encounter Details Date Type Department Care Team (Latest Contact Info) Description 05/24/2015 8:51 AM EST - 05/24/2015 11:59 PM EST Hospital Encounter Non-[place] [address] Cardiomyopathy; Shortness of breath; Heartburn Discharge Disposition: Home Social History Tobacco Use [...] dose. Call 911. 2 each 1 06/16/2014 meTOPROLOL succinate (TOPROL-XL) 25 mg Tablet Sustained Release 24 hr Take 25 mg by mouth daily. 08/04/2015 omeprazole (PRILOSEC) 10 mg Capsule, Delayed Release(E.C.) Take 20 mg by mouth daily. 08/04/2015 estradiol (VAGIFEM) 10 mcg TabletIndications:[place] pause Place 1 tablet vaginally twice a week. 8 tablet 11 04/28/2015 08/23/2020 montelukast (SINGULAIR) 10 mg Tablet Take 1 tab the night prior and night of receiving the allergy shots 20 tablet 03/04/2015 12/22/2015 fexofenadine (JANINA) 180 mg Tablet 1 tab daily prn allergies.Take 1 tab twice daily the day prior and day of receiving allergy shots. 30 tablet 03/04/2015 07/02/2017 PATANOL 0.1 % Drops INSTILL [...] 11:00 AM EDT Office Visit Hematology/Oncology at [address] [id number] El Bernardo MD [facility] [place] [address] [address] HEMATOLOGY AND ONCOLOGY [place], [place] [address] 04/21/2024 8:00 AM EST Appointment Mammography/[place] [address] HEMATOLOGY AND ONCOLOGY [place], [place] [id number] documented as of this encounter Procedures Procedure Name Priority Date/Time Associated Diagnosis Comments ECHO COMPLETE Routine 05/24/2015 9:33 AM EST Cardiomyopathy Shortness of breath Heartburn documented in this encounter Results * ECHO COMPLETE (05/24/2015 9:33 AM EST) EF 66 HEARTLAB SYSTEM Anatomical Region Laterality Modality Other 05/24/2015 Narrative 05/24/2015 9:49 AM EST Procedure: ?Transthoracic Echocardiogram Patient: ?BRANDON BOCANEGRAYN Capri ?(Age): 1960(54y) Med Rec#: ? [id number] ?Sex: ?F ? Site Loc: ? [facility] ?Ht / Wt: ??165(cm)/83(kg) Pt. Loc: ?Echo Lab ?BSA: ?1.9 Study Date: ?? 05/24/2015 ?Pt. Type: Outpatient Tape: ? Referring: Cande Estevez Reading: Clyde Mathtew ([id number]) Nanotechnologist: Saloni Malagon Diagnosis: *ICD-10-PCS Shortness of breath (R06.02) *ICD-10-PCS Cardiomyopathy, unspecified (I42.9) CPT Codes: *Echo Full (25412) *Spectral Doppler (10317) *Color Doppler (15568) BP: ? 105/63 SUMMARY: 1. The left ventricular chamber size is normal. ??Left ventricular wall thickness is normal. ??There is normal global left ventricular systolic function. ??Global longitudinal strain is -19%. ??The quantitative left ventricular ejection fraction by 3-D rendering is 66%. ??There are no left ventricular segmental wall motion abnormalities. ??Doppler assessment is consistent with normal left sided filling pressure. 2. Right ventricular chamber size, wall thickness, and systolic function are within normal limits. ??Pulmonary artery hypertension could not be assessed due to inadequate tricuspid regurgitation jet. 3. There is no hemodynamically significant valve disease. 4. There is mild dilatation of the aortic root. 5. See remainder of report for additional findings. Findings ? : Left Ventricle: ? The left ventricular chamber size is normal. ?Left ventricular wall thickness is normal. ?There is normal global left ventricular systolic function.Global longitudinal strain is -19%. ?The quantitative left ventricular ejection fraction by biplane Jerez's method is 62%. ?The quantitative left ventricular ejection fraction by 3-D rendering is 66%. ?There are no left ventricular segmental wall motion abnormalities. ?Doppler assessment is consistent with normal left sided filling pressure. Left Atrium: ? The left atrium is normal in size.(26 ml/m2) Right Ventricle: ? Right ventricular chamber size, wall thickness, and systolic function are within normal limits. ?Pulmonary artery hypertension could not be assessed due to inadequate tricuspid regurgitation jet. ?The estimated right atrial pressure is 3 mmHg. Right Atrium: ? The right atrium appears normal. Aortic Valve: ? The aortic valve is trileaflet. The leaflets are thin with normal excursion. There is no aortic stenosis or regurgitation present. Mitral Valve: ? The mitral valve appears normal in structure and function. ?There is trace mitral regurgitation present. ?Systolic anterior motion of the mitral valve chordae is present. Tricuspid Valve: ? The tricuspid valve appears normal in structure and function. ?There is trace tricuspid regurgitation present. Pulmonic Valve: ? The pulmonic valve appears normal in structure and function. ?There is trace pulmonic regurgitation present. Pericardium: ? The pericardium appears normal and there is no evidence of a pericardial effusion. Aorta: ? There is mild dilatation of the aortic root. ?The ascending aorta is normal in size. [...] (2D) ?0.8 ?cm ? IVS:LVPW ratio (2D) 1.1 ?ratio ? LVIDd (2D) ?4.8 ?cm ? LVIDs (2D) ?3.3 ?cm ? LVIDd (2D) index ?2.5 ?cm/m2 ? LVIDs (2D) index ?1.7 ?cm/m2 ? LV FS (2D) ?32 ? % ? EF Teichholz (2D) ?? 59 ? % ? Ao root diameter (2D4 ?cm (2.1 - 3.6) ? Ascending Ao ?2.9 ?cm (2 - 3.5) ? Volumes/Mass ?Value ?Units (Range) ? LA Area 4 CH ?15 ? cm2 (<21) ? LA ESV BP (A/L) inde26 ? ml/m2 ? RA AREA 4CH ? 13.4 ? cm2 ? LA ESV SP 4CH (MOD) 41.6 ? ml ? LA ESV SP 2CH (MOD) 44.6 ? ml ? LV ESV SP 4CH (MOD) 35 ? ml ? LV ESV SP 2CH (MOD) 32.5 ? ml ? LV EDV BP ? 91.7 ? ml ? LV ESV BP ? 34.5 ? ml ? BP EF (MOD) ? 62 ? % ? 3D LVEF ? 66 ? % ? 3D EDV ?104 ?ml ? 3D ESV ?35 ? ml ? LV mass (2D) ?120.8 ?g ? LV mass (2D) index ??63.6 ? g/m2 ? Diastolic/Systolic Function ?Value ?Units (Range) ? MV E-wave Vmax ?0.7 ?m/sec ? MV deceleration xehq330.2 ?msec ? MV A-wave Vmax ?0.5 ?m/sec ? MV E:A ratio ?1.3 ?ratio ? LV septal e' Vmax ?? 0.1 ?m/sec ? LV E:e' septal ratio9.6 ?ratio ? Tricuspid Valve ?Value ?Units (Range) ? RAP ? 3 ?mmHg ? Measurement Trending Name ? 05/24/2015 ? LV EDV BP ?91.69 LVIDd (2D) ? 4.76 LV ESV BP ?34.48 LVIDs (2D) ? 3.26 Wall Motion: Segment Name ?Rest ? Base-Anteroseptal ?? Normal ? Base-Anterior ? Normal ? Base-Anterolateral ??Normal ? Base-Posterolateral Normal ? Base-Inferior ? Normal ? Base-Inferoseptal ?? Normal ? Mid-Anteroseptal ?Normal ? Mid-Anterior ?Normal ? Mid-Anterolateral ?? Normal ? Mid-Posterolateral ??Normal ? Mid-Inferior ?Normal ? Mid-Inferoseptal ?Normal ? [place]-Septal ? Normal ? [place]-Anterior ? Normal ? [place]-Lateral ?Normal ? [place]-Inferior ? Normal ? [place]-Tip ?Normal ? This report has been electronically signed by: Clyde Matthew MD ? 05/24/2015 09:48:57 Images reviewed and interpretation verified [facility] Cardiac Ultrasound Laboratory Procedure Note Clyde Matthew MD - 05/24/2015 Procedure: Transthoracic Echocardiogram Patient: BRANDON HERRERA(Age): 1960(54y) Med Rec#: [id number] Sex: F Site Loc: [facility] Ht / Wt: 165(cm)/83(kg) Pt. Loc: Echo Lab BSA: 1.9 Study Date: 05/24/2015 Pt. Type: Outpatient Tape: Referring: Cande Estevez Reading: Clyde Matthew ([id number]) Nanotechnologist: Saloni Malagon Diagnosis: *ICD-10-PCS Shortness of breath (R06.02) *ICD-10-PCS Cardiomyopathy, unspecified (I42.9) CPT Codes: *Echo Full (45713) *Spectral Doppler (83896) *Color Doppler (12507) BP: 105/63 SUMMARY: 1. The left ventricular chamber size is normal. Left ventricular wall thickness is normal. There is normal global left ventricular systolic function. Global longitudinal strain is -19%. The quantitative left ventricular ejection fraction by 3-D rendering is 66%. There are no left ventricular segmental wall motion abnormalities. Doppler assessment is consistent with normal left sided filling pressure. 2. Right ventricular chamber size, wall thickness, and systolic function are within normal limits. Pulmonary artery hypertension could not be assessed due to inadequate tricuspid regurgitation jet. 3. There is no hemodynamically significant valve disease. 4. There is mild dilatation of the aortic root. 5. See remainder of report for additional findings. Findings : Left Ventricle: The left ventricular chamber size is normal. Left ventricular wall thickness is normal. There is normal global left ventricular systolic function.Global longitudinal strain is -19%. The quantitative left ventricular ejection fraction by biplane Jerez's method is 62%. The quantitative left ventricular ejection fraction by 3-D rendering is 66%. There are no left ventricular segmental wall motion abnormalities. Doppler assessment is consistent with normal left sided filling pressure. Left Atrium: The left atrium is normal in size.(26 ml/m2) Right Ventricle: Right ventricular chamber size, wall thickness, and systolic function are within normal limits. Pulmonary artery hypertension could not be assessed due to inadequate tricuspid regurgitation jet. The estimated right atrial pressure is 3 mmHg. Right Atrium: The right atrium appears normal. Aortic Valve: The aortic valve is trileaflet. The leaflets are thin with normal excursion. There is no aortic stenosis or regurgitation present. Mitral Valve: The mitral valve appears normal in structure and function. There is trace mitral regurgitation present. Systolic anterior motion of the mitral valve chordae is present. Tricuspid Valve: The tricuspid valve appears normal in structure and function. There is trace tricuspid regurgitation present. Pulmonic Valve: The pulmonic valve appears normal in structure and function. There is trace pulmonic regurgitation present. Pericardium: The pericardium appears normal and there is no evidence of a pericardial effusion. Aorta: There is mild dilatation of the aortic root. The ascending aorta is normal in size. [...] LVPWd (2D) 0.8 cm IVS:LVPW ratio (2D) 1.1 ratio LVIDd (2D) 4.8 cm LVIDs (2D) 3.3 cm LVIDd (2D) index 2.5 cm/m2 LVIDs (2D) index 1.7 cm/m2 LV FS (2D) 32 % EF Teichholz (2D) 59 % Ao root diameter (2D4 cm (2.1 - 3.6) Ascending Ao 2.9 cm (2 - 3.5) Volumes/Mass Value Units (Range) LA Area 4 CH 15 cm2 (<21) LA ESV BP (A/L) inde26 ml/m2 RA AREA 4CH 13.4 cm2 LA ESV SP 4CH (MOD) 41.6 ml LA ESV SP 2CH (MOD) 44.6 ml LV ESV SP 4CH (MOD) 35 ml LV ESV SP 2CH (MOD) 32.5 ml LV EDV BP 91.7 ml LV ESV BP 34.5 ml BP EF (MOD) 62 % 3D LVEF 66 % 3D EDV 104 ml 3D ESV 35 ml LV mass (2D) 120.8 g LV mass (2D) index 63.6 g/m2 Diastolic/Systolic Function Value Units (Range) MV E-wave Vmax 0.7 m/sec MV deceleration kscf964.2 msec MV A-wave Vmax 0.5 m/sec MV E:A ratio 1.3 ratio LV septal e' Vmax 0.1 m/sec LV E:e' septal ratio9.6 ratio Tricuspid Valve Value Units (Range) RAP 3 mmHg Measurement Trending Name 05/24/2015 LV EDV BP 91.69 LVIDd (2D) 4.76 LV ESV BP 34.48 LVIDs (2D) 3.26 Wall Motion: Segment Name Rest Base-Anteroseptal Normal Base-Anterior Normal Base-Anterolateral Normal Base-Posterolateral Normal Base-Inferior Normal Base-Inferoseptal Normal Mid-Anteroseptal Normal Mid-Anterior Normal Mid-Anterolateral Normal Mid-Posterolateral Normal Mid-Inferior Normal Mid-Inferoseptal Normal [place]-Septal Normal [place]-Anterior Normal [place]-Lateral Normal [place]-Inferior Normal [place]-Tip Normal This report has been electronically signed by: Clyde Matthew MD 05/24/2015 09:48:57 Images reviewed and interpretation verified [facility] Cardiac Ultrasound Laboratory Cande Kincaid APRN ECHO ORDERABLES documented in this encounter Visit Diagnoses Diagnosis Cardiomyopathy Other primary cardiomyopathies Shortness of breath Heartburn documented in this encounter Care Teams Parts Washer Relationship Specialty Start Date End Date Michelle Silveira PA PCP - General 05/09/10 08/04/15 documented as of this encounter
--- OUTSIDE RECORDS SUMMARY | 2024-02-27 12:44 | XMS_ITS | Encounter Summary ---
[facility] Address [facility] [place] [address] Care Team Providers Care Shovel Loader Operator Name Role Phone Robert Hummel MD Primary Care Provider [phone] Reason for Visit * Reason Onset Date Comments Medication Refill 09/28/2015 Encounter Details Date Type Department Care Team (Late Contact Info) Description 09/28/2015 [place] [address] Queenie Warren MD [facility] DR ALLERGY [place] [address] Social History Tobacco Use Types Packs/Day Years [...] AM EDT Office Visit Hematology/Oncology at [address] [address] El Bernardo MD [facility] [place] [address] Linda Tamayo APRN [address] [place] [address] [place] [address] 04/21/2024 8:00 AM EST Appointment Mammography/[place] [address] Linda Tamayo, WINE AND SPIRITS CLERK [address] [place] [address] DR [place] [address] documented as of this encounter Visit Diagnoses Not on filedocumented in this encounter Care Teams Shovel Loader Operator Relationship Specialty Start Date End Date Robert Hummel MD PCP - General General Internal Medicine 08/05/1511/16 documented as of this encounter
--- OUTSIDE RECORDS SUMMARY | 2024-02-27 12:44 | XMS_ITS | Encounter Summary ---
Author Organization [facility] Address [facility] [place] [address] Care Team Providers Care Industrial Coffee Grinder Name Role Phone Michelle Silveira Primary Care Provider [phone] Reason for Referral * Diagnostic Test (Routine) - Closed Specialty Diagnoses / Procedures Referred By Mariah tate Referred To Contact Radiology Diagnoses Malignant 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, unspecified site of breast BRCA1 positive Procedures MRI Breast Bilateral W/WO Contrast El Bernardo MD [facility] [address] [place] [address] Referral ID Status Reason Start Date Expiration Date V isits Requested Visits Authorized [id number] Closed Specialty Service Requested 06/29/2015 06/28/2016 1 1 Reason for Visit * Diagnostic Test (Routine) - Closed Specialty Diagnoses / Procedures Referred By Mariah tate Referred To Contact Radiology Diagnoses Malignant 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, unspecified site of breast BRCA1 positive Procedures MRI Breast Bilateral W/WO Contrast El Bernardo MD [facility] [address] [place] [address] Referral ID Status Reason Start Date Expiration Date V isits Requested Visits Authorized [id number] Closed Specialty Service Requested 06/29/2015 06/28/2016 1 1 Encounter Details Date Type Department Care Team (Latest Contact Info) Description 08/04/2015 11:49 AM EST - 08/04/2015 11:59 PM EST Hospital Encounter MRI at [facility] [place] [address] El Bernardo MD [facility] [place] [address] Malignant 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, unspecified site of breast; BRCA1 positive Discharge Disposition: Home Social History Tobacco [...] AM EDT Office Visit Hematology/Oncology at [address] [address] El Bernardo MD [facility] [place] [address] [address] HEMATOLOGY AND ONCOLOGY [place], [place] [address] 04/21/2024 8:00 AM EST Appointment Mammography[place] [address] [address] HEMATOLOGY AND ONCOLOGY [place], [place] [id number] documented as of this encounter Procedures Procedure Name Priority Date/Time Associated Diagnosis Comments MRI BREAST WWO CONTRAST BILAT Routine 08/04/2015 2:08 PM EST Malignant 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, unspecified site of breast BRCA1 positive documented in this encounter Results * MRI Breast Bilateral W/WO Contrast (08/04/2015 2:08 PM EST) Anatomical Region Laterality Modality Breast Bilateral Magnetic Resonan ce Impressions 08/05/2015 8:19 AM EST IMPRESSION: New nonmass enhancement in the deep central right breast 6 cm from the nipple concerning for malignancy in this BRCA1 positive patient. This is unlikely to be visualized by ultrasound. Mammogram is normal RECOMMENDATION: MRI guided biopsy. LEFT BREAST BIRADS 2. Benign finding RIGHT BREAST BIRADS 4. Suspicious for malignancy I have personally reviewed the image(s) and the residents interpretation and agree with the findings, Britt Armstrong at 08/05/2015 8:19 AM Narrative 08/05/2015 8:19 AM EST BILATERAL BREAST MRI CLINICAL INDICATION: 54-year-old female, BRCA1 positive, with history of left breast cancer status post partial mastectomy and radiation. TECHNIQUE: Multiplanar sequences were obtained pre- and post- gadolinium enhancement, to include SPGR weighted dynamic run-off and subtraction sequences obtained after the intravenous administration of 9 ccs of Gadavist. Computer algorithm analysis for lesion detection and kinetic contrast enhancement curve analysis was performed, using [employer] software. COMPARISON STUDIES: Compared and/or correlated with prior studies including MRI of the breast from 06/29/2013 and mammogram from 08/04/2015. FINDINGS: Background Enhancement Pattern (first post gadolinium image): None/Minimal (<25% breast) Amount of Fibroglandular Tissue: Scattered fibroglandular density LEFT Breast: Postsurgical changes are again seen in the left breast, unchanged since the prior exam. No abnormal areas of enhancement or masses are seen. RIGHT Breast: A new irregular focus of nonmass enhancement is seen in the right breast (series 8 image 47 and series 9 image 110). RIGHT BREAST LESION 1: 6 mm Non mass enhancement Deep central 6 cm from the nipple by MRI Non mass-like enhancement: Distribution: Focal enhancement Enhancement: Initial upslope: Fast Delayed phase: Plateau Lymph Node Basins/Other: There is no evidence of internal mammary or axillary adenopathy. No significant abnormalities are seen in the chest wall or skin. El Bernardo MD IMG MRI ORDERABLES documented in this encounter Visit Diagnoses Diagnosis Malignant 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, unspecified site of breast BRCA1 positive Genetic susceptibility to malignant neoplasm of breast documented in this encounter Administered Medications Inactive Administered Medications - up to 3 most recent administrations Medication Order MAR Action Action Date Dose Rate Site gadobutrol (GADAVIST) 1 mMol/mL injection 8.57 mL 8.57 mL (0.1 mL/kg/dose ? 85.7 kg Order-specific weight), Intravenous, ONCE PRN, 1 dose, Starting on Haily 08/04/15 at 1333, Until Haily 08/04/15 at 1349, Per Protocol, Routine Given 08/04/2015 1:49 PM EST 9 mLs documented in this encounter Care Teams Industrial Coffee Grinder Relationship Specialty Start Date End Date Michelle Silveira PA PCP - General 05/09/10 08/04/15 documented as of this encounter
--- OUTSIDE RECORDS SUMMARY | 2024-02-27 12:44 | XMS_ITS | Encounter Summary ---
Author Organization [facility] [place] [address] Care Team Providers Care Fourdrinier Tender Name Role Phone Michelle Silveira Primary Care Provider [phone] Reason for Referral * Diagnostic Test (Routine) - Closed Specialty Diagnoses / Procedures Referred By Mariah tate Referred To Contact Radiology Diagnoses Malignant 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, unspecified site of breast BRCA1 positive Procedures MRI Breast Bilateral W/WO Contrast El Bernardo MD [facility] [address] [place] [address] Referral ID Status Reason Start Date Expiration Date V isits Requested Visits Authorized [id number] Closed Specialty Service Requested 06/29/2015 06/28/2016 1 1 Encounter Details Date Type Department Care Team (Late st Contact Info) Description 06/23/2015 Orders Only Hematology [place] [address] El Bernardo MD [facility] [place] [address] Malignant 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, unspecified site of breast; BRCA1 positive; Malignant 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, unspecified [...] AM EDT Office Visit Hematology/Oncology at [address] [address] El Bernardo MD [facility] [place] [address] [address] HEMATOLOGY AND ONCOLOGY [place], [place] [id number] 04/21/2024 8:00 AM EST Appointment Mammography/[place] [address] [address] HEMATOLOGY AND ONCOLOGY [place], [place] [id number] documented as of this encounter Results * MRI Breast Bilateral [...] contrast enhancement curve analysis was performed, using [employer] software. COMPARISON STUDIES: Compared and/or correlated with [...] Genetic susceptibility to malignant neoplasm of breast Malignant 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, unspecified site of breast BRCA1 positive Genetic susceptibility to malignant neoplasm of breast documented in this encounter Care Teams Fourdrinier Tender Relationship Specialty Start Date End Date Michelle Silveira PA PCP - General 05/09/10 08/04/15 documented as of this encounter
--- OUTSIDE RECORDS SUMMARY | 2024-02-27 12:44 | XMS_ITS | Encounter Summary ---
Author Organization [facility] Address [facility] [place] [address] Care Team Providers Care Software Engineer Name Role Phone RaoulMichelle YADIRA Primary Care Provider [phone] Reason for Visit * Reason Comments Allergies Follow-up Encounter Details Date Type Department Care Team (Latest Contact Info) Description 08/04/2015 10:00 AM EST [place] [address] Queenie Warren MD [facility] [place] [address] Allergic rhinoconjunctivitis of both eyes; Desensitization to allergens; Environmental allergies Social History Tobacco Use Types Packs/Day Years [...] Sign Reading Time Taken Comments Blood Pressure 133/95 08/04/2015 9:50 AM EST Pulse 88 08/04/2015 9:50 AM EST Temperature - - Respiratory Rate - - Oxygen Saturation - - Inhaled Oxygen Concentration - - Weight 86 kg (189 lb 9.6 oz) 08/04/2015 9:50 AM EST Height 167.6 cm (5' 6) 08/04/2015 9:50 AM EST Body Mass Index 30.6 08/04/2015 9:50 AM EST documented in this encounter Patient Instructions * Patient Instructions* Queenie Warren MD - 08/04/2015 10:24 AM EST ?? - Take montelukast ( Singulair)?? 10mg 1 tab the night prior and night of receiving the allergy shots - Take fexofenadine ( Neva) 180mg 1 tab the night prior, morning of and night of receiving the allergy shots. ?? - Continue fexofenadine 180mg 1 tab daily as needed for allergies. - Start Flonase 2 sprays in each nostril once daily - Always bring EpiPen to shot appts and have it available for the next 24 hours after receiving theshots. ?? - 30 minute wait per protocol, after the shots - Avoid exercise for at least four hours after receiving your allergy shots documented in this encounter Progress Notes * Queenie Warren MD - 08/04/2015 10:02 AM EST Chief Complaint Patient presents with ??? Allergies ??? Follow-up HPI. Rebeca Hernández Is here today for a follow up visit. Last encounter in this section was on 11/11/2014 Allergic rhinoconjunctivitis Desensitization to allergens Patient was on allergy shots until 05/01 at which time she was started on metoprolol for cardiopmyopathy. She was evaluated by the mannequin wig maker, Dr. Govea, who recommended discontinuing the metoprolol and that she may restart the allergy shots. Prior to stopping the allergy shots on 02/23/15, she developed SOB about 40 minutes after receiving her shots. It was self- limiting and she did not seek urgent care. She feels the allergy shots were improving her allergen exposure tolerance and would like to restart them. She had been on the allergyshots from 07/14/14 until 04/27/15. AIT was to: Extract: Mix A (F&P Mite) Extract: Mix B (stemphyllium solani,aspergillus fumigatus) Extract: Mix C ([place] blue,orchard grass,maple tree) She was taking fexofenadine 180mg the night prior, morning of and night of receiving allergy shots. She was taking montelukast 10mg the night prior to and night of eceiving the allergy shots. She takes fexofenadine 180mg daily prn allergy symptoms. She takes Neva almost daily during the summer and fall. Since stopping the AIT, she has noticed increased nasal congestion, post nasal dripand rhinorrhea. Dust exposure and musty environments trigger itchy eyes. She has tried loratadine in the past, but her nasal congestion and sinus pressure persisted. She has also tried cetirizine, but discontinued it because of sedative effect. She is not on any nasal sprays or eye drops. She has Patanol and Astelin at home to use if her allergies worsen. Patient would like to try Flonase again because it helped her nasal congestion in the past. She tried nasonex in the past and stopped it because of headaches. No history of asthma. Not on beta dmitry. She has dust mite covers on her pillow and mattress. She installed air conditioner. She has rugs that she vacuums multiple times during the week. She has a dog that enters the bedroom. Review of Systems: All other systems reviewed and negative, except as noted below. Review of Systems HENT: Positive for congestion. Postnasal drip All other systems reviewed and are negative. Allergies, medications, past medical/ surgical history were reviewed and updated in eDH. Allergies: Tramadol; Carvedilol; Iodine; Morphine; Codeine phosphate; Penicillins; and Vicodin Medications: Outpatient Prescriptions Marked as Taking for the 08/04/15 encounter (Office Visit) with Queenie Warren MD Medication Sig Dispense Refill ??? estradiol (VAGIFEM) [address] 1 tablet vaginally twice a week. 8 tablet 11 ??? Cholecalciferol, Vitamin D3, (VITAMIN D-3) 2,000 unit Capsule Take by mouth. Past Medical and Social History: Past Medical History Diagnosis Date ??? Bipolar disorder, rapid cycling ??? Allergic rhinitis ??? Breast cancer Past Surgical History Procedure Laterality Date ??? Created by interface Cone biopsy - cervix Procedure Date: Unknown ??? Created by interface Entered not Verified Procedure Date: 04/26/2010 ??? Created by interface Excision of a basal cell carcinoma Procedure Date: Unknown ??? Created by interface LYMPH NODE BIOPSY,DEEP AXILLARY / LEFT/SENTINEL NODE EXCISION Procedure Date: 02/26/2005 ??? Created by interface MASTECTOMY,PARTIAL / LEFT/WITH NEEDLE LOC. Procedure Date: 02/26/2005 ??? Created by interface SENTINEL NODE INJECTION / LEFT Procedure Date: 02/26/2005 ??? Lap, rmv adnexal structure 04/21/2013 LAPAROSCOPY, REMOVAL OF ADNEXA performed by Carly Chamberlain MD at [facility] MAIN OR ??? Tonsillectomy ??? Adenoidectomy Family history: Family History Problem Relation Age of Onset ??? Allergic Rhinitis Father ??? Asthma Neg Hx ??? Breast Cancer Maternal Grandmother ??? Breast Cancer Mother ??? Breast Cancer Other Social history: History Social History ??? Marital Status: Spouse Name: N/A Number of Children: N/A ??? Years of Education: N/A Social History Main Topics ??? Smoking status: Never Smoker ??? Smokeless tobacco: Never Used Comment: only exposure was as a child ??? Alcohol Use: No Comment: Occasionally ??? Drug Use: No ??? Sexual Activity: Not Currently Other Topics Concern ??? None Social History Narrative Physical Exam: Vital signs reviewed. Normal Except General: - No apparent distress Eyes: - Conjunctivae without injection; - No eyelid swelling ENT: - No erythema of the tympanic membranes - Normal external ear canals - Nl nasal mucosa, septum, and turbinates; - Oropharynx well hydrated without lesions or exudates; - Face & sinuses non-tender to palpation/percussion Neck: - Symmetrical, no masses, trachea midline; Resp: - Unlabored breathing with symmetrical and equal bilateral expansion; - CTA w/o wheezes, rales, or rhonchi; CV: - Regular rate and rhythm - No pedal swelling GI: - Abdomen soft - Bowel sounds present - No hepatosplenomegaly Lymph: - No significant cervical, supraclavicular or infraclavicular lymphadenopathy Musculoskeletal: - Nl gait and station Extremities: - No clubbing, cyanosis, or edema Skin: - No rashes Neuro/Psych: - Nl and age appropriate mood and affect - Judgement and insight intact Impression Report Plan: #1 Allergic rhinoconjunctivitis - Increase in allergy nasal and ocular symptoms since discontinuing AIT. - Patient would like to restart AIT because she felt it was making a difference in her allergy symptoms. ---I discussed with patient risks, benefits, indications and alternatives to allergen immunotherapy. The risks include but are not limited to large local reactions, hives, swelling, respiratory distress, and life-threatening anaphylaxis. She will need to have her EpiPen at all times when receiving the shots. She will need to take antihistamine 2 hrs prior to receiving the shot. She will need to avoid exercise four hrs after receiving immunotherapy --I reviewed with her the schedule for allergy shot immunotherapy. She was advised that she will need to stay in clinic 30 min after the shot for observation. I also reviewed with her chcf risksand benefits and success rates of immunotherapy. --I reviewed the consent form with the patient. She signed it during today's visit. - Continue Neva 180mg daily And take 1 tab the night prior, morning of and night of receiving the allergy shots - Take montelukast 10mg 1 tab the night prior and night of receiving the allergy shots - Continue Astelin and Patanol during allergy symptom flare - Start Flonase 2 sprays daily. The appropriate administration technique to minimize the risk of septal perforation and nose bleeds was reviewed. #2 Desensitization to allergens, on AIT - AIT will be started from the beginning of build up phase. - AIT will be ordered based on previous AIT Rx. - Patient is no longer on beta dmitry. Not on sophie inhibitor. - Patient made aware of the cardiac risks associated with the administration of EpiPen/epinephrine and anaphylaxis. #3 Environmental allergies - Continue environmental control and avoidance measures RTC in 4 months Medication ordered or changed during this encounter, will not show discontinued medications Medications ??? fluticasone (FLONASE) 50 mcg/actuation [place], Suspension Si sprays by Each Nare route daily. Dispense: 16 g Refill: 12 eDH record was reviewed. Written instructions were reviewed and provided to the patient. No learning barriers were identified. The risks, benefits, alternatives and indications for the useof mediations prescribed or recommended during today's visit were reviewed with the patient. The patient understood and agreed with what was discussed. All questions were answered. documented in this encounter Plan of Treatment Upcoming Encounters Date Type Department Care Team (Late st Contact Info) Description 03/27/2024 11:00 AM EDT Office Visit Hematology/Oncology at [address] [phone] El Bernardo MD [facility] [place] [address] [address] HEMATOLOGY AND ONCOLOGY [place], [place] [id number] 04/21/2024 8:00 AM EST Appointment Mammography/[place] [address] HEMATOLOGY AND ONCOLOGY [place], [place] [id number] documented as of this encounter Visit Diagnoses Diagnosis Allergic rhinoconjunctivitis of both eyes Desensitization to allergens Need for desensitization to allergens Environmental allergies Allergic rhinitis, cause unspecified documented in this encounter Care Teams Software Engineer Relationship Specialty Start Date End Date Michelle Silveira PA PCP - General 05/09/10 08/04/15 documented as of this encounter
--- OUTSIDE RECORDS SUMMARY | 2024-02-27 12:44 | XMS_ITS | Encounter Summary ---
Author Organization [facility] Address [facility] [place] [address] Care Team Providers Care Avionics Systems Repairer Name Role Phone Robert Hummel MD Primary Care Provider [phone] Reason for Visit * Reason Comments Immunotherapy Encounter Details Date Type Department Care Team (Latest Contact Info) Description 10/05/2015 1:00 PM EDT Clinical [place] [address] Allergic rhinitis due to pollen; Allergic rhinitis [...] Progress Notes * Ankita Guzmán LPN - 10/05/2015 1:20 PM EDT Documentation of screening pre-immunotherapy questionnaire [...] Mix A (F&P Mite) Dilution: silver Dose: 0.15ml Site: right upper arm sq ?? Rxn: none Extract: Mix B (stemphyllium,aspergillus) Dilution: silver Dose: 0.15ml Site: left upper arm sq (u) Rxn: none Extract: Mix C (kent[place] blue orchard grass,jessica grass,maple) Dilution: silver Dose: 0.15ml Site: left lower arm sq (l) Rxn: c/o site itching no redness noted.Refused benadryl cream when offered. ? Pt was observed here in the waiting area for 30 minutes.?? NO adverse side effects were noted.?? Ptambulated from clinic in stable condition. ? documented in this encounter Plan of Treatment Upcoming Encounters Date Type Department Care Team (Late st Contact Info) Description 03/27/2024 11:00 AM EDT Office Visit Hematology/Oncology at [address] [phone] El Bernardo MD [facility] [place] [address] Linda Tamayo, [address] HEMATOLOGY AND ONCOLOGY [place], [place] [id number] 04/21/2024 8:00 AM EST Appointment Mammography/[place] [address] [address] HEMATOLOGY AND ONCOLOGY [place], [place] [id number] documented as of this encounter Visit Diagnoses Diagnosis Allergic rhinitis due to pollen Allergic rhinitis due to mold Allergic rhinitis due to dust mite documented in this encounter Care Teams Avionics Systems Repairer Relationship Specialty Start Date End Date Robert Hummel MD PCP - General General Internal Medicine 08/05/1511/16 documented as of this encounter
--- OUTSIDE RECORDS SUMMARY | 2024-02-27 12:44 | XMS_ITS | Encounter Summary ---
Author Organization [facility] Address [facility] [place] [address] Care Team Providers Care Emergency Management System Director Name Role Phone Raoul Michelle YADIRA Primary Care Provider [phone] Encounter Details Date Type Department Care Team (Late st Contact Info) Description 03/10/2015 [place] [phone] Marley Bustos LPN Social History Tobacco Use Types Packs/Day [...] encounter Miscellaneous Notes * Telephone Encounter - Marley Bustos LPN - 03/10/2015 4:23 PM EDT Received approval for her fexofenadine 180 mg. YADIRA # [id number] Patient notified of decision. * Telephone Encounter - Marley Bustos LPN - 03/10/2015 2:23 PM EDT Rebeca called today to let us know that her allergy shot for grass had a very large and painful reaction. It is swollen down to her elbow and is as wide as her hand. She took singulair and zyrtec last night. She has taken 50 mg of benadryl and an melissa 180 mg today. I recommended to put ice on it for the swelling and to help relieve the discomfort. I told her I would discuss this with for our plan. Rebeca was also wondering if there was any decision on the PA for the melissa. I told her I had not heard anything yet, but when I do I will let her know. I then spoke to Dr. Warren and we will make the decision on what to do with her shots next week. documented in this encounter Plan of Treatment Upcoming Encounters Date Type Department Care Team (Late st Contact Info) Description 03/27/2024 11:00 AM EDT Office Visit Hematology/Oncology at [address] [phone] El Bernardo MD [facility] [place] [address] [address] HEMATOLOGY AND ONCOLOGY [place], [place] [id number] 04/21/2024 8:00 AM EST Appointment Mammography/[place] [address] [address] HEMATOLOGY AND ONCOLOGY [place], [place] [address] documented as of this encounter Visit Diagnoses Not on filedocumented in this encounter Care Teams Emergency Management System Director Relationship Specialty Start Date End Date Michelle Silveira PA PCP - General 05/09/10 08/04/15 documented as of this encounter
--- OUTSIDE RECORDS SUMMARY | 2024-02-27 12:44 | XMS_ITS | Encounter Summary ---
Author Organization [facility] Address [facility] [place] [address] Care Team Providers Care Small Arms Artillery Repairer Name Role Phone RaoulMichelle YADIRA Primary Care Provider Encounter Details Date Type Department Care Team (Late Contact Info) Description 06/28/2015 Orders Only Hematology/Oncology at [address] [phone] El Bernardo MD [facility] [place] [address] Social History Tobacco Use Types Packs/Day Years [...] AM EDT Office Visit Hematology/Oncology at [address] [phone] El Bernardo MD [facility] [place] [address] Linda Tamayo APRN [address] [place] [address] DR HEMATOLOGY AND ONCOLOGY [place], [place] [address] 04/21/2024 8:00 AM EST Appointment Mammography[place] [address] Linda Tamayo APRN [address] [place] [address] DR [place] [address] documented as of this encounter Visit Diagnoses Not on filedocumented in this encounter Care Teams Small Arms Artillery Repairer Relationship Specialty Start Date End Date Michelle Silveira PA PCP - General 05/09/10 08/04/15 documented as of this encounter
--- OUTSIDE RECORDS SUMMARY | 2024-02-27 12:44 | XMS_ITS | Encounter Summary ---
Author Organization [facility] [place] [address] Care Team Providers Care Railroad Brake Operator Name Role Phone Michelle Silveira YADIRA Primary Care Provider Reason for Visit * Reason Onset Date Comments Other 03/16/2015 Allergy injectio ns Encounter Details Date Type Department Care Team (Late st Contact Info) Description 03/16/2015 Telephone Allergy at [facility] [place] [phone] Ankita Guzmán LPN Other (Allergy injections) Social History Tobacco Use Types Packs/Day Years [...] encounter Miscellaneous Notes * Telephone Encounter - Queenie Warren MD - 03/17/2015 9:45 AM EDT Message sent to allergy nursing staff: Please decrease mix c ( pollen) to green vial 0.4cc with next shot. If she continues to have LLR, please schedule follow up to discuss discontinuing allergy shots- all of them v. Mix C only. Thanks. Queenie * Telephone Encounter - Ankita Guzmán LPN - 03/16/2015 10:17 AM EDT Patient's allergy injection has been cancelled today. Waiting to hear back from Dr Warren as what todo with her immunotherapy. Pt can be reached on her home/cell number listed in chart. [facility]. documented in this encounter Plan of Treatment Upcoming Encounters Date Type Department Care Team (Late st Contact Info) Description 03/27/2024 11:00 AM EDT Office Visit Hematology/Oncology at [address] [phone] El Bernardo MD [facility] [place] [address] [address] HEMATOLOGY AND ONCOLOGY [place], [place] [address] 04/21/2024 8:00 AM EST Appointment Mammography[place] [address] [address] HEMATOLOGY AND ONCOLOGY [place], [place] [id number] documented as of this encounter Visit Diagnoses Not on filedocumented in this encounter Care Teams Railroad Brake Operator Relationship Specialty Start Date End Date Michelle Silveira PA PCP - General 05/09/10 08/04/15 documented as of this encounter
--- OUTSIDE RECORDS SUMMARY | 2024-02-27 12:44 | XMS_ITS | Encounter Summary ---
Author Organization [facility] [place] [address] Care Team Providers Care Nurse General Duty Name Role Phone Raoul Michelle YADIRA Primary Care Provider [phone] Reason for Visit * Reason Comments Established Encounter Details Date Type Department Care Team (Latest Contact Info) Description 04/27/2015 2:00 PM EST Office Visit [place] [address] Audelia Santos APRN [facility] [place] [address] Concern about sexually transmitted disease in female without diagnosis (Primary Dx); Encounter for routine gynecological examination; Menopause Social History Tobacco Use Types Packs/Day Years [...] Sign Reading Time Taken Comments Blood Pressure 110/64 04/27/2015 1:52 PM EST Pulse - - Temperature - - Respiratory Rate - - Oxygen Saturation - - Inhaled Oxygen Concentration - - Weight 83.5 kg (184 lb) 04/27/2015 1:52 PM EST Height - - Body Mass Index 30.62 03/04/2015 11:14 AM EDT documented in this encounter Progress Notes * Audelia Santos APRN - 04/27/2015 2:20 PM EST Division [place]nec[place] [address] Rebeca Hernández is a 54 y.o. post menopausal woman who presents today for her annual hospice music therapy exam. 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 She has a hx of breast cancer and is BRCA 1 positive. S/p risk reducing BSO 04/29. Remote hx of abnormal pap with subsequent normal pap. Last Pap/HPV test negative in 2011. No bowel, bladder or vaginal concerns/complaints today. Reports breast changes-- R breast looks dimply, she is due to follow with breast oncologist 07/2015. Hx of herpes, hasn't had a flare in several years. Sexually active, with dryness uses lubricant and vagifem which helps. She would like to continue with vagifem. Just ended relationship with new partner concerned about STDs, reports no symptoms, but did have unprotected intercourse and would like to be screened. Interim Health: Overall not feeling good. Reports mood is depressed, she decided not to start celexa which was recommended by her PCP. Her allergies are flaring, which makes her feel tired. Recently diagnosed with diabetes, currently diet controlled. She has questions re: testosterone level- feels tired, low sex drive, weakness, reported weight gain (in review of medical record Rebeca has lost 5lbs in the last 2-3 months). Health Habits: Tobacco: Nonsmoker. No ETOH in 14 months. Exercise: Walks daily for 40 minutes Health Maintenance: Mammogram: 07/2014, followed by Dr. Bernardo Colonoscopy: PCP referred her for one, she is waiting for an appointment Social History: Single, lives with her 21 yo daughter. 2 older children live nearby. 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 Patient Active Problem List Diagnosis Code ??? [...] ??? Diabetes mellitus type 2, diet-controlled E11.9 Current Outpatient Prescriptions Medication Sig Dispense Refill ??? montelukast (SINGULAIR) 10 mg Tablet Take 1 tab the night prior and night of receiving the allergy shots 20 tablet 11 ??? fexofenadine (JANINA) 180 mg Tablet 1 tab daily prn allergies.Take 1 tab twice daily the day prior and day of receiving allergy shots. 30 tablet 11 ??? PATANOL 0.1 % Drops INSTILL ONE DROP TO THE AFFECTED EYE(S) TWICE A DAY NEEDED FOR ALLERGIES5 mL 5 ??? Cholecalciferol, Vitamin D3, (VITAMIN D-3) 2,000 unit Capsule Take by mouth. ??? EPINEPHrine (EPIPEN) 0.3 mg/0.3 mL (1:1,000) Auto-Injector Inject 0.3 mLs into the muscle once as needed (difficulty breathing, throat swelling, loss of consciousness) for up to 1 dose. Call 911.2 each 1 ??? diphenhydrAMINE (BENADRYL) 25 mg capsule Take 25 mg by mouth every 6 hours as needed. ??? azelastine (ASTELIN) 137 mcg nasal spray 2 sprays by Nasal route 2 times daily. Use in each nostril as directed 30 mL 12 ??? estradiol (VAGIFEM) [address] 1 tablet vaginally twice a week. 8 tablet 10 ??? ibuprofen (ADVIL;MOTRIN) 600 mg tablet Take 1 tablet by mouth every 6 hours as needed for Pain.30 tablet 0 ??? valACYclovir (VALTREX) 500 mg tablet Take 500 mg by mouth 2 times daily as needed. ??? LORazepam (ATIVAN) 1 mg tablet Take 1 mg by mouth nightly as needed. No current facility-administered medications for this visit. Allergies Allergen Reactions ??? Tramadol Hives ??? Carvedilol Rash ??? Iodine Hives and Itching ??? Morphine Itching Extreme itching ??? Codeine Phosphate Rash ??? Penicillins Rash ??? Vicodin [Hydrocodone-Acetaminophen] Rash PHYSICAL EXAM: Vital signs: BP 110/64 mmHg Wt 83.462 kg (184 lb) General: Pleasant, Alert, NAD. HEENT: Thyroid with no appreciable masses/nodules. No appreciable clavicular lymphadenopathy. Breasts- L breast s/p lumpectomy with well healed incision. Stretch paiz just visible in the area of patient concern (upper portion of her breast) Stretch paiz are noted (B). There are no appreciable masses. R breast with no appreciable dimpling. L breast with dimpling at previous surgical site. No nipple d/c or puckering noted. Lungs- CTA (B) Heart: RRR no appreciable murmur Abdomen- Soft, non-tender,non-distended without appreciable masses or tenderness. Pelvic exam:External genitalia appears normal, including urethral meatus and perineum. Speculum exam: Vagina and cervix are without visible lesions, small amount of physiologic discharge present, no abnormal d/c. Cervix visualized, pap specimen collected w/ cytobrush, placed in preservative and sent to cytology. Bimanual exam: Uterus feels normal in size without nodularity or tenderness.. Rectovaginal exam- confirms above, good tone, no visible/appreciable hemorrhoids. IMPRESSION/PLAN: Normal annual HALL CLEANER exam. Reviewed pap guidelines, d/t new sexual partner pap test specimen collectedtoday and sent to cytology. Refills given for vagifem. Patient aware of risks/benefits of vaginal estrogen. STD screening: Discussion re: STD transmission, prevention. GC/CT cultures done today. Discussion and lab order placed for HIV, syphilis, Hepatitis C and Hep B. Depression, fatigue, weight gain: discussion with patient to f/u with PCP for further evaluation/management. I would defer to her PCP re: further evaluation of testosterone. She will return in one year, Sooner PRN with any questions or concerns. Audelia Santos APRN documented in this encounter Plan of Treatment Upcoming Encounters Date Type Department Care Team (Late st Contact Info) Description 03/27/2024 11:00 AM EDT Office Visit Hematology/Oncology at [address] [address] El Bernardo MD [facility] [place] [address] Linda Tamayo APRN [address] [place] [address] DR HEMATOLOGY AND ONCOLOGY [place], [place] [address] 04/21/2024 8:00 AM EST Appointment Mammography/[place] [address] [address] HEMATOLOGY AND ONCOLOGY [place], [place] [id number] documented as of this encounter Procedures Procedure Name Priority Date/Time Associated Diagnosis Comments HALL CLEANER CYTOLOGY INTERPRETATION Routine 04/27/2015 3:17 PM EST GC/CHLAMYDIA Routine 04/27/2015 3:17 PM EST Encounter for routine gynecological examination GC/CHLAM Routine 04/27/2015 3:17 PM EST Encounter for routine gynecological examination HALL CLEANER CYTOLOGY FINAL REPORT Routine 04/27/2015 3:17 PM EST CYTOPATHOLOGY GYNECOLOGICAL Routine 04/27/2015 3:17 PM EST Encounter for routine gynecological examination documented in this encounter Results * Shower Room Attendant Cytology Final Report (04/27/2015 3:17 PM EST) Shower Room Attendant Cytology Final Report The signing pathologist has (i) examined the relevant preparation(s) for the specimen(s) and (ii) rendered or confirmed the diagnosis(es). Accession Number: [id number] ?Location: . ? Shower Room Attendant Final DIAGNOSIS NORMAL Negative for Intraepithelial Lesion or Malignancy (NILM). 05/02/15 ?? Screened by: ??LMY 05/02/15 ?? Verified by: ??Juvenal SEGAL(ASCP), Maria E Ramírez - Pasting Inspector STATEMENT OF ADEQUACY Specimen submitted is satisfactory. Endocervical component present. CLINICAL INFORMATION HPV Option: ?Reflex HPV Preparation: ? Liquid based Pap Specimen Source: ? Cervical/Endocervic al LMP: ? na Hormones?: ? No Hysterectomy?: ? No ?: ? No ?: ? No I.U.D.?: ? No Pelvic Radiation: ?No Prior HALL CLEANER Therapy?: ?Cone Biopsy Hist Abnl Pap/Biopsy?: ?? Yes, history of previous abnormal Pap Hist of HPV Vaccine?: ?No Hist of Smoking?: ?No Hist of CONY exposure?: ?? No ICD Diagnosis: ? Z12.4 Encounter for screening for malignant neoplasm of cervix Clinical Data, Significant Therapy and Clinical Impression: ?remote hx of abnormal pap, This Pap Test has been evaluated with the assistance of the Therasport Physical TherapyPrep Pap Test Imaging System. Note: The Pap test is a screening test for cervical cancer with an inherent false-negative rate dependent upon several variables. ??For further information please contact the [facility] Laboratory. Reference: ??Abnatalia CS. ??Associate Professor Of Literacy of Pap Smear Results. ??In: ??Julio Cesar BS, Misael HH, ed. ??The Pap Smear. ??[place]: ??Jerad, 2002: ??71-77. KANDY FRANCIS 04/27/2015 3:17 PM EST Audelia Santos APRN PATHOLOGY/CYTOLO GY ORDERABLES [facility] * HALL CLEANER Cytology Interpretation (04/27/2015 3:17 PM EST) Shower Room Attendant Cytology Interpretation NILM [facility] Comment:Shower Room Attendant Cytology Final R eport Endocervical Component Present [facility] AP Specimen 04/27/2015 3:17 PM EST 04/27/2015 7:19 PM EST Audelia Santos APRN PATHOLOGY/CYTOLO GY ORDERABLES Performing Organization Address [facility] Co de Phone Number [facility] * GC/Chlam (04/27/2015 3:17 PM EST) GC Gene Amp Negative Negative [facility] Comment: The only FDA approved specimen types for this assay are cervix, vagina, urethra and urine. ??The sensitivity and specificity of the assay for other specimen types has not been determined. GC Source [facility]ervical [facility] Chlamydia Gene Amp Negative Negative [facility] Comment: The only FDA approved specimen types for this assay are cervix, vagina, urethra and urine. ??The sensitivity and specificity of the assay for other specimen types has not been determined. Chlm Source Cervical [facility] Specimen of unknown material (specimen) 04/27/2015 3:17 PM EST 04/27/2015 7:51 PM EST Narrative Resulting Agency Comment Spec In Lab Carly Solano MD MICROBIOLOGY - GENER AL ORDERABLES Performing Organization Address [facility] de Phone Number [facility] * Cytopathology Gynecological (04/27/2015 3:17 PM EST) AP Specimen 04/27/2015 3:17 PM EST 04/27/2015 3:17 PM EST Narrative [facility] - 04/27/2015 3:17 PM EST Specimen requisition ordered. ??Separate Pathology report to follow Carly Solano MD PATHOLOGY/CYTOLOGY O RDERABLES Performing Organization Address [facility] Co de Phone Number [facility] documented in this encounter Visit Diagnoses Diagnosis Concern about sexually transmitted disease in female without diagnosis- Primary Person with feared complaint in whom no diagnosis was made Encounter for routine gynecological examination Routine gynecological examination Menopause Asymptomatic postmenopausal status (age-related) (natural) documented in this encounter Care Teams Nurse General Duty Relationship Specialty Start Date End Date Michelle Silveira PA PCP - General 05/09/10 08/04/15 documented as of this encounter
--- OUTSIDE RECORDS SUMMARY | 2024-02-27 12:44 | XMS_ITS | Encounter Summary ---
Author Organization [facility] [place] [address] Care Team Providers Care Architect In Training Name Role Phone Raoul Michelle YADIRA Primary Care Provider [phone] Reason for Visit * Reason Comments Immunotherapy Encounter Details Date Type Department Care Team (Latest Contact Info) Description 03/24/2015 11:30 AM EDT Clinical Support Allergy at [facility] [place] [address] Allergic rhinitis due to pollen; Allergic rhinitis [...] Progress Notes * Marley Bustos LPN - 03/24/2015 11:42 AM EDT Documentation of screening pre-immunotherapy questionnaire [...] (mites) Dilution: yellow Dose: 0.05 ml Site: LUE Sub Q Rxn: none Extract: Mix B (mold) Dilution: yellow Dose: 0.05 ml Site: RUE Sub Q (U) Rxn: none Extract: Mix C Dilution: green Dose: 0.4 ml Site: RUE Sub Q (L) Rxn: None Pt was observed here in the waiting area for 30 minutes. No adverse side effects noted. Pt ambulated from clinic in stable condition. documented in this encounter Plan of Treatment Upcoming Encounters Date Type Department Care Team (Late st Contact Info) Description 03/27/2024 11:00 AM EDT Office Visit Hematology/Oncology at [address] [address] El Bernardo MD [facility] [place] [address] Linda Tamayo [address] HEMATOLOGY AND ONCOLOGY [place], [place] [address] 04/21/2024 8:00 AM EST Appointment Mammography/[place] [address] Linda Tamayo [address] HEMATOLOGY AND ONCOLOGY [place], [place] [address] documented as of this encounter Visit Diagnoses Diagnosis Allergic rhinitis due to pollen Allergic rhinitis due to mold Allergic rhinitis due to dust mite documented in this encounter Care Teams Architect In Training Relationship Specialty Start Date End Date Michelle Silveira PA PCP - General 05/09/10 08/04/15 documented as of this encounter
--- OUTSIDE RECORDS SUMMARY | 2024-02-27 12:44 | XMS_ITS | Encounter Summary ---
Author Organization [facility] Address [facility] [place] [address] Care Team Providers Care Test Center Manager Name Role Phone Robert Hummel MD Primary Care Provider [phone] Reason for Referral * Diagnostic Test (Routine) - Specialty Diagnoses / Procedures Referred By Mariah tate Referred To Contact Radiology Diagnoses Abnormal MRI, breast Procedures MRI Breast Right Biopsy Vacuum Assist With Clip Placement Britt Armstrong MD [facility] DIAGNOSTIC [place] [address] [place] [address] Referral ID Status Reason Start Date Expiration Date Visits Requested Visits Authorized [id number] Specialty Service Requested 08/05/2015 08/04/2016 1 1 Reason for Visit * Diagnostic Test (Routine) - Specialty Diagnoses / Procedures Referred By Mariah tate Referred To Contact Radiology Diagnoses Abnormal MRI, breast Procedures MRI Breast Right Biopsy Vacuum Assist With Clip Placement Britt Armstrong MD [facility] DIAGNOSTIC [place] [address] [place] [address] Referral ID Status Reason Start Date Expiration Date Visits Requested Visits Authorized [id number] Specialty Service Requested 08/05/2015 08/04/2016 1 1 Encounter Details Date Type Department Care Team (Latest Contact Info) Description 08/17/2015 10:11 AM EST - 08/17/2015 11:59 PM EST Hospital [place] [address] Britt Armstrong MD [facility] DIAGNOSTIC [place] [address] Abnormal MRI, breast Discharge Disposition: Home Social History Tobacco [...] each 1 06/16/2014 estradiol (VAGIFEM) 10 mcg TabletIndications:Godwin pause Place 1 tablet vaginally twice a [...] 11:00 AM EDT Office Visit Hematology/Oncology at [address] [address] El Bernardo MD [facility] [place] [address] [address] HEMATOLOGY AND ONCOLOGY [place], [place] [address] 04/21/2024 8:00 AM EST Appointment Mammography/[place] [address] [address] HEMATOLOGY AND ONCOLOGY [place], [place] [id number] documented as of this encounter Procedures Procedure Name Priority Date/Time Associated Diagnosis Comments MRI GUIDED BIOPSY BREAST VACUUM ASSISTED W CLIP PLACEMENT RIGHT Routine 08/17/2015 12:10 PM EST Abnormal MRI, breast documented in this encounter Results * MRI Breast Right Biopsy Vacuum Assist With Clip Placement (08/17/2015 12:10 PM EST) Anatomical Region Laterality Modality Breast Right Magnetic Resonan ce Impressions 08/19/2015 5:13 PM EST IMPRESSION: Concordant result RECOMMENDATION: 6m follow up right breast MRI REVIEW PATH CONFERENCE?: Yes Narrative 08/19/2015 5:13 PM EST MRI GUIDED BIOPSY OF THE RIGHT BREAST CLINICAL HISTORY: abnormal MRI, BRCA 1. ??Small enhancing deep central focus right breast. 6 mm focus of nonmass enhancement in the deep central breast 6 cm the nipple RIGHT BREAST LESION #1 PROCEDURAL DETAILS: Informed consent was obtained. The patient was position in a prone breast coil. Multiplanar sequences were obtained pre- and post- gadolinium enhancement, to include SPGR weighted sequences obtained after the intravenous administration of 8 ccs of Gadovist. Lesion localization was performed using [employer] software. Sterile technique was deployed. Approximately 5 cc 1% lidocaine (superficial) and approximately 10 1% lidocaine with epinephrine (deep) used for local anesthesia. A small skin incision was made and a biopsy was performed from a lateral approach. Multiple core biopsy specimens were obtained using a Adify Atec 20mm MR vacuum assisted device. Satisfactory sampling was obtained. A ATE top chicken hatchery helper clip was placed. Cranio-caudal and lateral digital mammography performed to determine biopsy marker placement, which was shown to be 3 cm from the biopsy site in medial direction. COMPLICATIONS: None. PROCEDURAL ATTESTATION: Resident: Miguel Bianchi performed the procedure with the resident observing. IMAGING DIFFERENTIAL DIAGNOSIS: FCD, papilloma, CA PATHOLOGIC DIAGNOSIS: FCD Britt Armstrong MD [facility] MRI ORDERABLES documented in this encounter Visit Diagnoses Diagnosis Abnormal MRI, breast Other (abnormal) findings on radiological examination of breast documented in this encounter Administered Medications Inactive Administered Medications - up to 3 most recent administrations Medication Order MAR Action Action Date Dose Rate Site gadobutrol (GADAVIST) 1 mMol/mL injection 8.62 mL 8.62 mL (0.1 mL/kg/dose ? 86.2 kg Order-specific weight), Intravenous, ONCE PRN, 1 dose, Starting on Sat08/17/15 at 1210, Until Sat08/17/15 at 1110, Per Protocol, Routine Given 08/17/2015 11:10 AM EST 8 mLs documented in this encounter Care Teams Test Center Manager Relationship Specialty Start Date End Date Robert Hummel MD PCP - General General Internal Medicine 08/05/152 12/30 documented as of this encounter
--- OUTSIDE RECORDS SUMMARY | 2024-02-27 12:44 | XMS_ITS | Encounter Summary ---
Author Organization Formerly [facility] Address [place] [address] Care Team Providers Care Bread Pan Greaser Name Role Phone Robert Hummel MD Primary Care Provider [phone] Reason for Referral * Diagnostic Test (Routine) - Closed Specialty Diagnoses / Procedures Referred By Mariah tate Referred To Contact Cardiology Diagnoses Cardiomyopathy Procedures Echocardiogram Transthoracic(Leb) Jose Govea MD [facility] [address] [facility] Non-[place] [address] Referral ID Status Reason Start Date Expiration Date V isits Requested Visits Authorized [id number] Closed Specialty Service Requested 05/22/2016 05/22/2017 1 1 Encounter Details Date Type Department Care Team (Late st Contact Info) Description 05/22/2016 10:40 AM EST Office Visit Cardiology at [address] [address] Jose Govea MD [facility] [place] [address] Cardiomyopathy Social History Tobacco Use Types Packs/Day [...] Sign Reading Time Taken Comments Blood Pressure 130/92 05/22/2016 10:42 AM EST Pulse 76 05/22/2016 10:42 AM EST regu lar, radial Temperature - - Respiratory Rate - - Oxygen Saturation 99% 05/22/2016 10:42 AM EST Inhaled Oxygen Concentration - - Weight 84.4 kg (186 lb) 05/22/2016 10:42 AM EST Height 167.6 cm (5' 6) 05/22/2016 10:42 AM EST Body Mass Index 30.02 05/22/2016 10:42 AM EST documented in this encounter Progress Notes * Jose Govea MD - 05/22/2016 10:40 AM EST HPI: Rebeca Hernández is a 55 y.o. year old female with a pmhx [...] breath is stable. She is exercising -- walking/bike/treadmill 4 x weekly. No chest pain with this. PMHX Patient Active Problem List Diagnosis Code [...] Allergic rhinoconjunctivitis of both eyes J30.9, H10.13 MEDS: reviewed [facility] Social History Social History [...] and found to be negative. Physical Examination Vitals: 05/22/16 1042 BP: (!) 130/92 Pulse: 76 General: no acute distress Behavioral: Alert and [...] to allergies and need for allergy shots. Off medications; recheck echocardiogram to ensure stable heart function. 2. Sob -- stable 3. Follow up 1 year documented in this encounter Plan of Treatment Upcoming Encounters Date Type Department Care Team (Late st Contact Info) Description 03/27/2024 11:00 AM EDT Office Visit Hematology/Oncology at [address] [phone] El Bernardo MD [facility] [address] Linda Tamayo APRN [address] [place] [address] DR HEMATOLOGY [place] [address] 04/21/2024 8:00 AM EST Appointment Mammography/[place] [address] Linda Tamayo APRN [address] [place] [address] DR HEMATOLOGY [place] [address] documented as of this encounter Results * ECHO COMPLETE (05/22/2016 2:15 PM EST) EF 65 HEARTLAB SYSTEM Anatomical Region Laterality Modality Other 05/22/2016 Narrative 05/22/2016 2:45 PM EST Procedure: ?Transthoracic Echocardiogram Patient: ?BRANDON Farooq ?(Age): 1960(55y) Med Rec#: ? [id number] ?Sex: ?F ? Site Loc: ? [facility] [place] ?Ht / Wt: ??165(cm)/83(kg) Pt. Loc: ?Echo Lab ?BSA: ?1.9 Study Date: ?? 05/22/2016 ?Pt. Type: Outpatient Tape: ? 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 Cardiomyopathy Rhythm: ? Sinus BP: ? 130/82 HR: ? 76 SUMMARY: 1. The left ventricular chamber size is normal. ??There is normal global left ventricular systolic function. The quantitative left ventricular ejection fraction by 3-D rendering is 65%. ??There are no left ventricular segmental wall motion abnormalities. 2. Right ventricular chamber size, wall thickness, and systolic function are within normal limits. 3. The left atrium is normal in size. 4. There is no hemodynamically significant valve disease. 5. Other details as noted below. Findings ? : Left Ventricle: ? The left ventricular chamber size is normal. ?Left ventricular wall thickness is normal. ?No ventricular septal defect is visualized. ?There is normal global left ventricular systolic function.Global longitudinal strain is -19%. ?The quantitative left ventricular ejection fraction by biplane Jerez's method is 65%. ?The quantitative left ventricular ejection fraction by 3-D rendering is 65%. ?There are no left ventricular segmental wall motion abnormalities. ?Doppler assessment is consistent with normal left sided filling pressure. Left Atrium: ? The left atrium is normal in size.(21 ml/m2) ?No atrial septal defect is visualized. Right Ventricle: ? Right ventricular chamber size, wall thickness, and systolic function are within normal limits. ?The estimated pulmonary artery systolic pressure is 25 mmHg. ?The estimated right atrial pressure is 3 [...] echo, spectral Doppler and color Doppler performed. ?Three-dimensional echocardiogram performed. ?YOBANY performed Chambers 2D ?Value ?Units (Range) ? IVSd (2D) ? 0.9 ?cm ? LVPWd (2D) ?1.1 ?cm ? IVS:LVPW ratio (2D) 0.9 ?ratio ? LVIDd (2D) ?4 ?cm ? LVIDs (2D) ?2.9 ?cm ? LVIDd (2D) index ?2.1 ?cm/m2 ? LVIDs (2D) index ?1.5 ?cm/m2 ? LV FS (2D) ?28 ? % ? EF Teichholz (2D) ?? 55 ? % ? Ao root diameter (2D3.8 ?cm (2.1 - 3.6) ? Ascending Ao ?3.4 ?cm (2 - 3.5) ? Volumes/Mass ?Value ?Units (Range) ? LA Area 4 CH ?16 ? cm2 (<21) ? LA ESV BP (A/L) inde21.2 ? ml/m2 ? RA AREA 4CH ? 11 ? cm2 ? LA ESV SP 4CH (MOD) 42.5 ? ml ? LA ESV SP 2CH (MOD) 32.7 ? ml ? LA ESV BP (MOD) inde21 ? ml/m2 ? LV ESV SP 4CH (MOD) 37.3 ? ml ? LV ESV SP 2CH (MOD) 47.7 ? ml ? LV EDV BP ? 126.2 ?ml ? LV ESV BP ? 44 ? ml ? BP EF (MOD) ? 65 ? % ? 3D LVEF ? 65 ? % ? Global Longiitudinal-19.8 ?% (-30 - -10) ? LV mass (2D) ?127.5 ?g ? LV mass (2D) index ??67.1 ? g/m2 ? Diastolic/Systolic Function ?Value ?Units (Range) ? MV E-wave Vmax ?0.6 ?m/sec ? MV deceleration qzvp200.9 ?msec ? MV A-wave Vmax ?0.5 ?m/sec ? MV E:A ratio ?1.1 ?ratio ? LV septal e' Vmax ?? 0.1 ?m/sec ? LV lateral e' Vmax ??0.1 ?m/sec ? LV average e' Vmax ??0.1 ?m/sec ? LV E:e' septal ratio6.4 ?ratio ? LV E:e' lateral rati6.4 ?ratio ? LV average E:e' rati6.4 ?ratio ? Aortic Valve ?Value ?Units (Range) ? AV Vmax ? 1.1 ?m/sec ? AV peak gradient ?4.7 ?mmHg ? LVOT Vmax ? 0.9 ?m/sec ? LVOT peak gradient ??3.4 ?mmHg ? DOI (Vmax) ?0.9 ?ratio ? Tricuspid Valve ?Value ?Units (Range) ? TR Vmax ? 2.4 ?m/sec ? TR peak gradient ?22 ? mmHg ? RAP ? 3 ?mmHg ? RVSP ?25 ? mmHg ? Measurement Trending Name ? 05/22/2016 ? LV EDV BP ?126.19 LVIDd (2D) ? 4.01 LV ESV BP ?44 LVIDs (2D) ? 2.88 Wall Motion: Segment Name ?Rest ? Base-Anteroseptal ?? Normal ? Base-Anterior ? Normal ? Base-Anterolateral ??Normal ? Base-Posterolateral Normal ? Base-Inferior ? Normal ? Base-Inferoseptal ?? Normal ? Mid-Anteroseptal ?Normal ? Mid-Anterior ?Normal ? Mid-Anterolateral ?? Normal ? Mid-Posterolateral ??Normal ? Mid-Inferior ?Normal ? Mid-Inferoseptal ?Normal ? [place]-Septal ? Normal ? [place]-Anterior ? Normal ? [place]-Lateral ?Normal ? [place]-Inferior ? Normal ? [place]-Tip ?Normal ? This report has been electronically signed by: Lloyd Syed MD ? 05/22/2016 14:44:45 Images reviewed and interpretation verified [facility] Cardiac Ultrasound Laboratory Procedure Note Lloyd Syed MD - 05/22/2016 Procedure: Transthoracic Echocardiogram Patient: BRANDON HERRERA(Age): 1960(55y) Med Rec#: [id number] Sex: F Site Loc: [facility] [place] Ht / Wt: 165(cm)/83(kg) Pt. Loc: Echo Lab BSA: 1.9 Study Date: 05/22/2016 Pt. 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 The left ventricular chamber size is normal. There is normal global left ventricular systolic function. The quantitative left ventricular ejection fraction by 3-D rendering is 65%. There are no left ventricular segmental wall motion abnormalities. 2. Right ventricular chamber size, wall thickness, and systolic function are within normal limits. 3. The left atrium is normal in size. 4. There is no hemodynamically significant valve disease. 5. Other details as noted below. Findings : Left Ventricle: The left ventricular chamber size is normal. Left ventricular wall thickness is normal. No ventricular septal defect is visualized. There is normal global left ventricular systolic function.Global longitudinal strain is -19%. The quantitative left ventricular ejection fraction by biplane Jerez's method is 65%. The quantitative left ventricular ejection fraction by 3-D rendering is 65%. There are no left ventricular segmental wall motion abnormalities. Doppler assessment is consistent with normal left sided filling pressure. Left Atrium: The left atrium is normal in size.(21 ml/m2) No atrial septal defect is visualized. Right Ventricle: Right ventricular chamber size, wall thickness, and systolic function are within normal limits. The estimated pulmonary artery systolic pressure is 25 mmHg. The estimated right atrial pressure is 3 [...] echo, spectral Doppler and color Doppler performed. Three-dimensional echocardiogram performed. YOBANY performed Chambers 2D Value Units (Range) IVSd (2D) 0.9 cm LVPWd (2D) 1.1 cm IVS:LVPW ratio (2D) 0.9 ratio LVIDd (2D) 4 cm LVIDs (2D) 2.9 cm LVIDd (2D) index 2.1 cm/m2 LVIDs (2D) index 1.5 cm/m2 LV FS (2D) 28 % EF Teichholz (2D) 55 % Ao root diameter (2D3.8 cm (2.1 - 3.6) Ascending Ao 3.4 cm (2 - 3.5) Volumes/Mass Value Units (Range) LA Area 4 CH 16 cm2 (<21) LA ESV BP (A/L) inde21.2 ml/m2 RA AREA 4CH 11 cm2 LA ESV SP 4CH (MOD) 42.5 ml LA ESV SP 2CH (MOD) 32.7 ml LA ESV BP (MOD) inde21 ml/m2 LV ESV SP 4CH (MOD) 37.3 ml LV ESV SP 2CH (MOD) 47.7 ml LV EDV BP 126.2 ml LV ESV BP 44 ml BP EF (MOD) 65 % 3D LVEF 65 % Global Longiitudinal-19.8 % (-30 - -10) LV mass (2D) 127.5 g LV mass (2D) index 67.1 g/m2 Diastolic/Systolic Function Value Units (Range) MV E-wave Vmax 0.6 m/sec MV deceleration rgpu946.9 msec MV A-wave Vmax 0.5 m/sec MV E:A ratio 1.1 ratio LV septal e' Vmax 0.1 m/sec LV lateral e' Vmax 0.1 m/sec LV average e' Vmax 0.1 m/sec LV E:e' septal ratio6.4 ratio LV E:e' lateral rati6.4 ratio LV average E:e' rati6.4 ratio Aortic Valve Value Units (Range) AV Vmax 1.1 m/sec AV peak gradient 4.7 mmHg LVOT Vmax 0.9 m/sec LVOT peak gradient 3.4 mmHg DOI (Vmax) 0.9 ratio Tricuspid Valve Value Units (Range) TR Vmax 2.4 m/sec TR peak gradient 22 mmHg RAP 3 mmHg RVSP 25 mmHg Measurement Trending Name 05/22/2016 LV EDV BP 126.19 LVIDd (2D) 4.01 LV ESV BP 44 LVIDs (2D) 2.88 Wall Motion: Segment Name Rest Base-Anteroseptal Normal Base-Anterior Normal Base-Anterolateral Normal Base-Posterolateral Normal Base-Inferior Normal Base-Inferoseptal Normal Mid-Anteroseptal Normal Mid-Anterior Normal Mid-Anterolateral Normal Mid-Posterolateral Normal Mid-Inferior Normal Mid-Inferoseptal Normal [place]-Septal Normal [place]-Anterior Normal [place]-Lateral Normal [place]-Inferior Normal [place]-Tip Normal This report has been electronically signed by: Lloyd Syed MD 05/22/2016 14:44:45 Images reviewed and interpretation verified [facility] Cardiac Ultrasound Laboratory Jose Govea MD ECHO ORDERABLES documented in this encounter Visit Diagnoses Diagnosis Cardiomyopathy Other primary cardiomyopathies Cardiomyopathy Other primary cardiomyopathies documented in this encounter Care Teams Bread Pan Greaser Relationship Specialty Start Date End Date Robert Hummel MD PCP - General General Internal Medicine 05/22/1609/16 documented as of this encounter
--- OUTSIDE RECORDS SUMMARY | 2024-02-27 12:44 | XMS_ITS | Encounter Summary ---
Author Organization [facility] Address [facility] [place] [address] Care Team Providers Care Dictating Machine Transcriber Name Role Phone Raoul Michelle MAY Primary Care Provider [phone] Encounter Details Date Type Department Care Team (Latest Contact Info) Description 08/04/2015 11:12 AM EST - 08/04/2015 11:48 AM EST Hospital Encounter Mammography at [facility] [place] [address] El Bernardo MD [facility] [place] [address] Personal history of breast cancer Discharge Disposition: Home Social History [...] AM EDT Office Visit Hematology/Oncology at [address] [phone] El Bernardo MD [facility] [place] [address] [address] HEMATOLOGY AND ONCOLOGY [place], [place] [address] 04/21/2024 8:00 AM EST Appointment Mammography/[place] [address] [address] HEMATOLOGY AND ONCOLOGY [place], [place] [address] documented as of this encounter Procedures Procedure Name Priority Date/Time Associated Diagnosis Comments MAMMO SCREENING CAD AND JEAN BILATERAL Routine 08/04/2015 11:39 AM EST Personal history of breast cancer documented in this encounter Results * Mammo Digital Bilateral Screening With CAD and Tomosynthesis (08/04/2015 11:39 AM EST) Anatomical Region Laterality Modality Breast Bilateral Mammography Narrative 08/04/2015 11:59 AM EST REASON FOR EXAM: Screening. History [...] screening. BIRADS CATEGORY 2: BENIGN FINDINGS * ??The [employer] and The Society of Breast Imaging recommend annual screening beginning at age 40 for the general female population. * ??Screening should continue as long as a woman is in good health and is expected to live 10 more years or longer. * ??All women should be familiar with the known benefits, limitations, and potential harms linked to breast cancer screening. They also should know how their breasts normally look and feel and report any breast changes to a health care provider right away. * ??Some women, because of their family history, a genetic tendency, or certain other factors, should be screened with MRIs along with mammograms. (The number of women who fall into this category is very small.) The patient and health care provider should discuss the patient history and decide if earlier screening and breast MRI are appropriate. El Bernardo MD IMG MAMMO ORDERABLES documented in this encounter Visit Diagnoses Diagnosis Personal history of breast cancer Personal history of malignant neoplasm of breast documented in this encounter Care Teams Dictating Machine Transcriber Relationship Specialty Start Date End Date Michelle Silveira PA PCP - General 05/09/10 08/04/15 documented as of this encounter
--- OUTSIDE RECORDS SUMMARY | 2024-02-27 12:44 | XMS_ITS | Encounter Summary ---
Author Organization [facility] [place] [address] Care Team Providers Care Cloth Shader Name Role Phone Robert Hummel MD Primary Care Provider [phone] Reason for Referral * Diagnostic Test (Routine) - Specialty Diagnoses / Procedures Referred By Mariah tate Referred To Contact Radiology Diagnoses Abnormal MRI, breast Procedures MRI Breast Right Biopsy Vacuum Assist With Clip Placement Britt Armstrong MD [facility] [place] [address] [facility] [place] [address] Referral ID Status Reason Start Date Expiration Date Visits Requested Visits Authorized [id number] Specialty Service Requested 08/05/2015 08/04/2016 1 1 Encounter Details Date Type Department Care Team ([facility] Contact Info) Description 08/04/2015 Orders [place] [address] Britt Armstrong MD [facility] [place] [address] Abnormal MRI, breast Social History Tobacco Use Types Packs/Day [...] 11:00 AM EDT Office Visit Hematology/Oncology at [address] [phone] El Bernardo MD [facility] [place] [address] [address] HEMATOLOGY AND ONCOLOGY [place], [place] [address] 04/21/2024 8:00 AM EST Appointment Mammography/[place] [address] [address] HEMATOLOGY AND ONCOLOGY [place], [place] [id number] documented as of this encounter Results * Mammo Direct Digital Right (08/17/2015 12:19 PM EST) Anatomical Region Laterality Modality Breast Right Mammography Impressions 08/19/2015 5:13 PM EST IMPRESSION: Concordant [...] of Gadovist. Lesion localization was performed using [employer] software. Sterile technique was deployed. Approximately 5 cc 1% lidocaine (superficial) and approximately 10 1% lidocaine with epinephrine (deep) used for local anesthesia. A small skin incision was made and a biopsy was performed from a lateral approach. Multiple core biopsy specimens were obtained using a [employer] 20mm MR vacuum assisted device. Satisfactory sampling was obtained. A [facility] top straw hat brusher clip was placed. Cranio-caudal and lateral digital mammography performed to determine biopsy marker placement, which was shown to be 3 cm from the biopsy site in medial direction. COMPLICATIONS: None. PROCEDURAL ATTESTATION: Resident: Miguel Bianchi performed the procedure with the resident observing. IMAGING DIFFERENTIAL DIAGNOSIS: FCD, papilloma, CA PATHOLOGIC DIAGNOSIS: FCD Britt Armstrong MD [facility] MAMMO ORDERABLES * MRI Breast Right Biopsy Vacuum Assist [...] of Gadovist. Lesion localization was performed using [employer] software. Sterile technique was deployed. Approximately 5 cc 1% lidocaine (superficial) and approximately 10 1% lidocaine with epinephrine (deep) used for local anesthesia. A small skin incision was made and a biopsy was performed from a lateral approach. Multiple core biopsy specimens were obtained using a [employer] 20mm MR vacuum assisted device. Satisfactory sampling was obtained. A [employer] top straw hat brusher clip was placed. Cranio-caudal and lateral digital mammography performed to determine biopsy marker placement, which was shown to be 3 cm from the biopsy site in medial direction. COMPLICATIONS: None. PROCEDURAL ATTESTATION: Resident: Miguel Bianchi performed the procedure with the resident observing. IMAGING DIFFERENTIAL DIAGNOSIS: FCD, papilloma, CA PATHOLOGIC DIAGNOSIS: FCD Britt Armstrong MD [facility] MRI ORDERABLES documented in this encounter Visit Diagnoses Diagnosis Abnormal MRI, breast Other (abnormal) findings on radiological examination of breast Abnormal MRI, breast Other (abnormal) findings on radiological examination of breast Abnormal MRI, breast Other (abnormal) findings on radiological examination of breast documented in this encounter Care Teams Cloth Shader Relationship Specialty Start Date End Date Robert Hummel MD PCP - General General Internal Medicine 08/05/1511/16 documented as of this encounter
--- OUTSIDE RECORDS SUMMARY | 2024-02-27 12:44 | XMS_ITS | Encounter Summary ---
Author Organization [facility] Address [facility] [place] [address] Care Team Providers Care Mill House Supervisor Name Role Phone RaoulMichelle YADIRA Primary Care Provider [phone] Encounter Details Date Type Department Care Team (Late Contact Info) Description 06/20/2015 Orders Only Hematology/Oncology at [address] [phone] El Bernardo MD [facility] [place] [address] Social History Tobacco Use Types Packs/Day Years [...] 11:00 AM EDT Office Visit Hematology/Oncology at [address] [phone] El Bernardo MD [facility] [place] [address] Linda Tamayo APRN [address] [place] [address] DR HEMATOLOGY AND ONCOLOGY [place], [place] [address] 04/21/2024 8:00 AM EST Appointment Mammography/[place] [address] Linda Tamayo APRN [address] [place] [address] [place] [address] documented as of this encounter Visit Diagnoses Not on filedocumented in this encounter Care Teams Mill House Supervisor Relationship Specialty Start Date End Date Michelle Silveira PA PCP - General 05/09/10 08/04/15 documented as of this encounter
--- OUTSIDE RECORDS SUMMARY | 2024-02-27 12:44 | XMS_ITS | Encounter Summary ---
Author Organization [facility] [place] [address] Care Team Providers Care Equipment Detailer Name Role Phone Raoul Michelle YADIRA Primary Care Provider [phone] Reason for Visit * Reason Comments Immunotherapy Encounter Details Date Type Department Care Team (Latest Contact Info) Description 04/27/2015 11:00 AM EST Clinical Support Allergy at [facility] [place] [address] Allergic rhinitis due to pollen; Allergic rhinitis [...] Progress Notes * Marley Bustos LPN - 04/27/2015 11:41 AM EST Documentation of screening pre-immunotherapy questionnaire responses 1. [...] 12 hours of receiving your last injection? No 5. Are you on any new medications? [...] 0.05 ml Site: RUE Sub Q Rxn: 5 mm flare Extract: Mix B (mold) Dilution: yellow Dose: [...] AM EDT Office Visit Hematology/Oncology at [address] [phone] [facility] [place] [address] [address] [place] [address] 04/21/2024 8:00 AM EST Appointment Mammography/[place] [address] Linda Tamayo [address] HEMATOLOGY AND ONCOLOGY [place], [place] [id number] documented as of this encounter Procedures Procedure Name Priority Date/Time Associated Diagnosis Comments ALLERGY SCAN 07/05/2015 12:00 AM EST ALLERGY SCAN 07/05/2015 12:00 AM EST ALLERGY SCAN 07/05/2015 12:00 AM EST ALLERGY SCAN 07/05/2015 12:00 AM EST documented in this encounter Results * SCAN DOC: ALLERGY (07/05/2015 12:00 AM EST) Scanning Provider MEDIA MGR SCAN EXT O RDR/RSLT * SCAN DOC: ALLERGY (07/05/2015 12:00 AM EST) Scanning Provider MEDIA MGR SCAN EXT O RDR/RSLT * SCAN DOC: ALLERGY (07/05/2015 12:00 AM EST) Scanning Provider MEDIA MGR SCAN EXT O RDR/RSLT * SCAN DOC: ALLERGY (07/05/2015 12:00 AM EST) Scanning Provider MEDIA MGR SCAN EXT O RDR/RSLT documented in this encounter Visit Diagnoses Diagnosis Allergic rhinitis due to pollen 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
--- OUTSIDE RECORDS SUMMARY | 2024-02-27 12:44 | XMS_ITS | Encounter Summary ---
Author Organization Formerly [facility] Address [facility] [place] [address] Care Team Providers Care Splicing Technician Name Role Phone Robert Hummel MD Primary Care Provider [phone] Reason for Visit * Reason Onset Date Comments Other 05/23/2016 Echo Results Encounter Details Date Type Department Care Team (Late st Contact Info) Description 05/23/2016 Telephone Cardiology at [address] [address] Jose Govea MD [facility] [address] Other (Echo Results) Social History Tobacco Use Types Packs/Day Years [...] encounter Miscellaneous Notes * Telephone Encounter - Irena Caputo - 05/23/2016 9:[address] Govea, Please call Mrs. Hernández with the results of her echo. She mentions that she may need to be on medication due to the results. [phone] Thank you, Irena documented in this encounter Plan of Treatment Upcoming Encounters Date Type Department Care Team (Late st Contact Info) Description 03/27/2024 11:00 AM EDT Office Visit Hematology/Oncology at [address] [address] El Bernardo MD [facility] [place] [address] [address] HEMATOLOGY AND ONCOLOGY [place], [place] [address] 04/21/2024 8:00 AM EST Appointment Mammography/[place] [address] HEMATOLOGY AND ONCOLOGY [place], [place] [id number] documented as of this encounter Visit Diagnoses Not on filedocumented in this encounter Care Teams Splicing Technician Relationship Specialty Start Date End Date Robert Hummel MD PCP - General General Internal Medicine 05/22/1609/16 documented as of this encounter
--- OUTSIDE RECORDS SUMMARY | 2024-02-27 12:44 | XMS_ITS | Encounter Summary ---
Author Organization Formerly [facility] Address [facility] [place] [address] Care Team Providers Care Regrind Mill Operator Name Role Phone Robert Hummel MD Primary Care Provider Reason for Referral * Diagnostic Test (Routine) - Closed Specialty Diagnoses / Procedures Referred By Galindoac t Referred To Contact Cardiology Diagnoses Cardiomyopathy Procedures Echocardiogram Transthoracic(Leb) Jose Govea MD [facility] [place] [address] [facility] [place] [address] Referral ID Status Reason Start Date Expiration Date V isits Requested Visits Authorized [id number] Closed Specialty Service Requested 05/22/2016 05/22/2017 1 1 Reason for Visit * Diagnostic Test (Routine) - Closed Specialty Diagnoses / Procedures Referred By Contac t Referred To Contact Cardiology Diagnoses Cardiomyopathy Procedures Echocardiogram Transthoracic(Leb) Jose Govea MD [facility] [place] [address] [facility] [place] [address] Referral ID Status Reason Start Date Expiration Date V isits Requested Visits Authorized [id number] Closed Specialty Service Requested 05/22/2016 05/22/2017 1 1 Encounter Details Date Type Department Care Team (Latest Contact Info) Description 05/22/2016 1:00 PM EST - 05/22/2016 11:59 PM EST Hospital Encounter Non-Invasive Cardiology Lab [facility] [place] [address] Jose Govea MD [facility] [place] [address] Cardiomyopathy Discharge Disposition: Home Social History Tobacco Use [...] Reported on 10/12/2016 fluticasone (FLONASE) 50 mcg/actuation [place], Suspension 1 spray 2 times daily as needed for Rhinitis. Reported on 10/12/2016 03/11/2017 estradiol (VAGIFEM) 10 mcg TabletIndications:Penrose pause Place 1 tablet vaginally twice a [...] 11:00 AM EDT Office Visit Hematology/Oncology at [address] [phone] El Bernardo MD [facility] [place] [address] [address] HEMATOLOGY AND ONCOLOGY [place], [place] [address] 04/21/2024 8:00 AM EST Appointment Mammography/[place] [address] [address] HEMATOLOGY AND ONCOLOGY [place], [place] [id number] documented as of this encounter Procedures Procedure Name Priority Date/Time Associated Diagnosis Comments LAB SCAN 08/21/2016 12:00 AM EST ECHO COMPLETE Routine 05/22/2016 2:15 PM EST Cardiomyopathy documented in this encounter Results * SCAN DOC: LAB (08/21/2016 12:00 AM EST) Narrative 08/21/2016 12:00 AM EST Ordered by an unspecified provider. Scanning Provider MEDIA MGR SCAN EXT O RDR/RSLT * ECHO COMPLETE (05/22/2016 2:15 PM EST) EF 65 [employer] Anatomical Region Laterality Modality Other 05/22/2016 Narrative 05/22/2016 2:45 PM EST Procedure: ?Transthoracic Echocardiogram Patient: ?BRANDON Farooq ?(Age): 1960(55y) Med Rec#: ? [id number] ?Sex: ?F ? Site Loc: ? [facility] ?Ht / Wt: ??165(cm)/83(kg) Pt. Loc: ?Echo Lab ?BSA: ?1.9 Study Date: ?? 05/22/2016 ?Pt. Type: Outpatient Tape: ? 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 Cardiomyopathy Rhythm: ? Sinus BP: [...] E-wave Vmax ?0.6 ?m/sec ? MV deceleration [id number] ?msec ? MV A-wave Vmax ?0.5 ?m/sec [...] ? Mid-Inferior ?Normal ? Mid-Inferoseptal ?Normal ? [place]-Septal ? Normal ? [place]-Anterior ? Normal ? [place]-Lateral ?Normal ? [place]-Inferior ? Normal ? [place]-Tip ?Normal ? This report has been electronically signed by: Lloyd Syed MD ? 05/22/2016 14:44:45 Images reviewed and interpretation verified [facility] Cardiac Ultrasound Laboratory Procedure Note Lloyd Syed MD - 05/22/2016 Procedure: Transthoracic Echocardiogram Patient: BRANDON Farooq (Age): 1960(55y) Med Rec#: [id number] Sex: F Site Loc: [facility] Ht / Wt: 165(cm)/83(kg) Pt. Loc: Echo Lab BSA: 1.9 Study Date: 05/22/2016 Pt. 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 (238.8) CPT Codes: *Echo Full (76802) *Spectral Doppler (59757) *Color Doppler (55845) Indication: Cardiomyopathy Rhythm: Sinus BP: 130/82 HR: [...] MV E-wave Vmax 0.6 m/sec MV deceleration [id number] msec MV A-wave Vmax 0.5 m/sec MV [...] Normal Mid-Posterolateral Normal Mid-Inferior Normal Mid-Inferoseptal Normal [place]-Septal Normal [place]-Anterior Normal [place]-Lateral Normal [place]-Inferior Normal [place]-Tip Normal This report has been electronically signed by: Lloyd Syed MD 05/22/2016 14:44:45 Images reviewed and interpretation verified [facility] Cardiac Ultrasound Laboratory Jose Govea MD ECHO ORDERABLES documented in this encounter Visit Diagnoses Diagnosis Cardiomyopathy Other primary cardiomyopathies documented in this encounter Care Teams Regrind Mill Operator Relationship Specialty Start Date End Date Robert Hummel MD PCP - General General Internal Medicine 05/22/1609/16 documented as of this encounter
--- OUTSIDE RECORDS SUMMARY | 2024-02-27 12:44 | XMS_ITS | Encounter Summary ---
Author Organization [facility] Address [facility] [place] [address] Care Team Providers Care Incubator Tender Name Role Phone RaoulMichelle YADIRA Primary Care Provider [phone] Reason for Visit * Reason Comments Other Encounter Details Date Type Department Care Team ([facility] st Contact Info) Description 05/11/2015 Telephone Allergy at [facility] [place] [phone] Marley Bustos LPN Social History Tobacco Use [...] Telephone Encounter - Marley Bustos LPN - 05/24/2015 9:36 AM EST I called patient to find out if she was still on a betablocker. She said she was, and had already cancelled her upcoming shot appts. * Telephone Encounter - Marley Bustos LPN - 05/24/2015 9:36 AM EST ----- Message from Queenie Warren MD sent at 05/17/2015 2:21 PM EST ----- Please notify patient that beta blockers are a contraindicated to allergy shots. Thus, if she has been placed on a beta dmitry, allergy shots should be discontinued. Thanks, Queenie ----- Message ----- From: Ankita Guzmán LPN Sent: 05/05/2015 4:26 PM To: Marta Lr RN, Marley Bustos LPN, # ?stop injections then? Ankita ----- Message ----- From: OdilonRebeca law Hardeep Sent: 05/05/2015 8:57 AM To: Rodolfo Allergy Nurse Cancelled shot for today because she is in the ed for her heart. They have put her back on her betablocker. I asked her to have them fax their note to us when they were finished with her. documented in this encounter Plan of Treatment Upcoming Encounters Date Type Department Care Team (Late st Contact Info) Description 03/27/2024 11:00 AM EDT Office Visit Hematology/Oncology at [address] [address] El Bernardo MD [facility] [address] [address] HEMATOLOGY AND ONCOLOGY [place], [place] [address] 04/21/2024 8:00 AM EST Appointment Mammography/[place] [address] [address] HEMATOLOGY AND ONCOLOGY [place], [place] [address] documented as of this encounter Visit Diagnoses Not on filedocumented in this encounter Care Teams Incubator Tender Relationship Specialty Start Date End Date Michelle Silveira PA PCP - General 05/09/10 08/04/15 documented as of this encounter
--- OUTSIDE RECORDS SUMMARY | 2024-02-27 12:44 | XMS_ITS | Encounter Summary ---
Author Organization [facility] Address [facility] [place] [address] Care Team Providers Care Property Claims Adjuster Name Role Phone Robert Hummel MD Primary Care Provider [phone] Reason for Visit * Reason Onset Date Comments Immunotherapy 09/13/2015 Encounter Details Date Type Department Care Team ([facility] st Contact Info) Description 09/13/2015 [place] [address] Ankita Guzmán LPN Immunotherapy Social History Tobacco Use Types Packs/Day Years [...] encounter Miscellaneous Notes * Telephone Encounter - Ankita Guzmán LPN - 09/13/2015 8:13 AM EDT Message left on identified cell phone that her extracts are in. She just needs to schedule her allergy injection appointment. * Telephone Encounter - Ankita Guzmán LPN - 09/13/2015 8:12 AM EDT ----- Message from Rebeca Donald sent at 09/12/2015 1:14 PM EDT ----- Contact: Clari She is wondering if you have ordered her new serum and,if not, if you were waiting to hear from her. documented in this encounter Plan of Treatment Upcoming Encounters Date Type Department Care Team (Late st Contact Info) Description 03/27/2024 11:00 AM EDT Office Visit Hematology/Oncology at [address] [address] El Bernardo MD [facility] [place] [address] Linda Tamayo [address] HEMATOLOGY AND ONCOLOGY [place], [place] [address] 04/21/2024 8:00 AM EST Appointment Mammography[place] [address] [address] HEMATOLOGY AND ONCOLOGY [place], [place] [address] documented as of this encounter Visit Diagnoses Not on filedocumented in this encounter Care Teams Property Claims Adjuster Relationship Specialty Start Date End Date Robert Hummel MD PCP - General General Internal Medicine 08/05/152 12/30 documented as of this encounter
--- OUTSIDE RECORDS SUMMARY | 2024-02-27 12:44 | XMS_ITS | Encounter Summary ---
Author Organization [facility] Address [facility] [place] [address] Care Team Providers Care Audio Production Instructor Name Role Phone Elizabeth Kincaidlouann Rios APRN Primary Care Provider [phone] Reason for Referral * Consultation (Routine) - Closed Specialty Diagnoses / Procedures Referred By Mariah tate Referred To Contact Dermatology Diagnoses Malignant 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, unspecified site of breast Bettie Downing APRN [address] [place] [place] [address] Miles Bowman MD [address] [place] [address], [place] [address] Referral ID Status Reason Start Date Expiration Date V isits Requested Visits Authorized [id number] Closed Consult, Test & Treat 04/12/2016 10/09/2016 1 1 Encounter Details Date Type Department Care Team (Late st Contact Info) Description 04/12/2016 8:45 AM EDT Office Visit Hematology/Oncology at [address] [address] Bettie Downing APRN [address] [facility] [place] [place] [address] Malignant 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, unspecified [...] Sign Reading Time Taken Comments Blood Pressure 118/80 04/12/2016 8:54 AM EDT Pulse 70 04/12/2016 8:54 AM EDT Temperature 36.7 ??C (98.1 ??F) 04/12/2016 8:54 AM ED T Respiratory Rate 16 04/12/2016 8:54 AM EDT Oxygen Saturation 99% 04/12/2016 8:54 AM EDT Inhaled Oxygen Concentration - - Weight 83 kg (183 lb) 04/12/2016 8:54 AM EDT Height 167.6 cm (5' 5.98) 04/12/2016 8:54 AM ED T Body Mass Index 29.55 04/12/2016 8:54 AM EDT documented in this encounter Progress Notes * Bettie Downing, MANAGEMENT INSTRUCTOR - 04/12/2016 8:45 AM EDT Subjective: Patient ID: Rebeca Hernández [...] with heterologous chondroid differentiation Tumor Grade: High Nvrjtq-Oosvb-Yoeotpzqal Score: 9 Tubular Differentiation: 3 Mitotic Rate: [...] carcinoma: 4 Estrogen/Progestin receptors: ER immunoreactivity: Negative AL immunoreactivity: Negative HER2/yeyo expression by FISH: NEGATIVE [...] same BRCA1 alteration found in her mother ([id number]). Prophylactic BSO 04/2013. Path - Right and left fallopian tubes and ovaries (bilateral salpingo-oophorectomy): No evidence of malignancy. 3. SPORTS NUTRITIONIST History: The patient is G4, P3 with [...] is feeling fairly well with no new complaints except for what she thinksis an insect bite from a trip to [place] a month ago which is on her foot and will not go away. Review of Systems Constitutional: Positive for fatigue. Negative for activity change, appetite change, chills, fever and unexpected weight change. Eyes: Negative. Respiratory: Negative. Cardiovascular: Negative. Gastrointestinal: Negative. Genitourinary: Negative. Musculoskeletal: Positive for back pain. Skin: Positive for wound (R anterior foot- about 2mm). Neurological: Negative. Psychiatric/Behavioral: Negative. BP 118/80 (Patient Position: Sitting) Pulse 70 Temp 36.7 ??C (98.1 ??F) (Oral) Resp 16 Ht 167.6 cm (5' 5.98) Wt 83 kg (183 lb) SpO2 99% BMI 29.55 kg/m2 Wt Readings from Last 3 Encounters: 04/12/16 83 kg (183 lb) 12/01/15 86.2 kg (190 lb) 08/26/15 85.9 kg (189 lb 5 oz) Objective: Physical Exam Constitutional: She is oriented [...] and dry. No rash noted. No erythema. R anterior foot with 2-3mm raised lesion, black in the center and slightly ringed in red. Raised tissue around the lesion about the size of a quarter. Psychiatric: She has a normal mood and [...] associated diagnoses do not qualify for coverage. Therefore she is here today for a 6mo followup. I do not feel any abnormalities in her breasts bilat. She is quite conflicted about prophylactic mastectomy and we discussed that for a while. She will wait for the time being until her next MRIin 6mo. She does have a bite-type lesion on her foot which I believe to be a chigger bite acquired on a trip to [place] a month ago. ? Associated infection so I have given her Keflex (allergic to pen but hopefully does ok with 2nd generation) and instructions for hot soaks. I will also put in a referral to dermatology for followup. As noted, she is positive for BRCA-1 mutation. She is s/p prophylactic oophorectomy. Testing for her daughter was discussed previously who is in her early 20s. The patient says they have discussed itand she does not want to be tested now but may change her mind. Bettie Downing, MSN, FORMSTONE FITTER, AOCN Hematology/Oncology Nurse Practitioner [place], [place] [phone] documented in this encounter Plan of Treatment Upcoming Encounters Date Type Department Care Team (Late st Contact Info) Description 03/27/2024 11:00 AM EDT Office Visit Hematology/Oncology at [address] [phone] El Bernardo MD [facility] [place] [address] Linda Tamayo [address] HEMATOLOGY AND ONCOLOGY [place], [place] [address] 04/21/2024 8:00 AM EST Appointment Mammography[place] [address] [address] Tam[address] HEMATOLOGY AND ONCOLOGY [place], [place] [address] Scheduled Referrals Name Type Priority Associated Diagnoses Orde r Schedule Referral to Dermatology Outpatient Referral Routine Malignant 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, unspecified site of breast Ordered: 04/12/2016 documented as of this encounter Visit Diagnoses Diagnosis Malignant 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, unspecified site of breast documented in this encounter Care Teams Audio Production Instructor Relationship Specialty Start Date End Date Cande Kincaid APRN PCP - General Family Medicine 12/13/15 05/21/16 documented as of this encounter
--- OUTSIDE RECORDS SUMMARY | 2024-02-27 12:44 | XMS_ITS | Encounter Summary ---
Author Organization [facility] [place] [address] Care Team Providers Care Termite Technician Name Role Phone Robert Hummel MD Primary Care Provider [phone] Reason for Visit * Reason Comments Immunotherapy Encounter Details Date Type Department Care Team (Latest Contact Info) Description 09/21/2015 1:00 PM EDT Clinical Support Allergy at [facility] [place] [address] Allergic rhinitis due to pollen; Allergic rhinitis [...] Progress Notes * Ankita Guzmán LPN - 09/21/2015 1:59 PM EDT Documentation of screening pre-immunotherapy questionnaire [...] specify__NONE 6. Have patient confirm that the name areand date on his/her vials are correct. yes Rebeca Hernández has come into the Allergy Clinic for allergy injection. No reported problems with the last shot. Antihistamine taken as directed. Epipen brought to appointment. Injections given per Dr Warren's orders. Epipen Expires: 05/2016 Last Doctors Appt: 08/04/2015 Maintenance Achieved: building Peak Flow-400 Injections given: Building Extract: Mix A (F&P Mite) Dilution: silver Dose: 0.05ml Site: right upper arm sq Rxn: none (but did c/o itching at injection site) Extract: Mix B (stemphyllium,aspergillus) Dilution: silver Dose: 0.05ml Site: left upper arm sq (u) Rxn: none Extract: Mix C ([place] blue orchard grass,jessica grass,maple) Dilution: silver Dose: 0.05ml Site: left lower arm sq (l) Rxn: none Pt was observed here in the waiting area for 30 minutes. NO adverse side effects were noted. Pt ambulated from clinic in stable condition. documented in this encounter Plan of Treatment Upcoming Encounters Date Type Department Care Team (Late st Contact Info) Description 03/27/2024 11:00 AM EDT Office Visit Hematology/Oncology at [address] [phone] [facility] [place] [address] Linda Tamayo [address] HEMATOLOGY AND ONCOLOGY [place], [place] [address] 04/21/2024 8:00 AM EST Appointment Mammography/[place] [address] Linda Tamayo [address] HEMATOLOGY AND ONCOLOGY [place], [place] [id number] documented as of this encounter Visit Diagnoses Diagnosis Allergic rhinitis due to pollen Allergic rhinitis due to mold Allergic rhinitis due to dust mite documented in this encounter Care Teams Termite Technician Relationship Specialty Start Date End Date Robert Hummel MD PCP - General General Internal Medicine 08/05/1511/16 documented as of this encounter
--- OUTSIDE RECORDS SUMMARY | 2024-02-27 12:44 | XMS_ITS | Encounter Summary ---
Author Organization [facility] Address [facility] [place] [address] Care Team Providers Care Psychology Clinician Name Role Phone Robert Hummel MD Primary Care Provider [phone] Reason for Visit * Reason Comments Immunotherapy Encounter Details Date Type Department Care Team (Latest Contact Info) Description 09/28/2015 1:15 PM EDT Clinical Support Allergy at [facility] [place] [address] Allergic rhinitis due to pollen; Allergic rhinitis [...] Progress Notes * Ankita Guzmán LPN - 09/28/2015 1:39 PM EDT Documentation of screening pre-immunotherapy questionnaire [...] Mix A (F&P Mite) Dilution: silver Dose: 0.1ml Site: left upper arm sq ?? Rxn: none Extract: Mix B (stemphyllium,aspergillus) Dilution: silver Dose: 0.1ml Site: right upper arm sq (u) Rxn: none Extract: Mix C ([place] blue orchard grass,jessica grass,maple) Dilution: silver Dose: 0.1ml Site: right lower arm sq (l) Rxn: none ? Pt was observed here in the waiting area for 30 minutes.?? NO adverse side effects were noted.?? Ptambulated from clinic in stable condition. documented in this encounter Plan of Treatment Upcoming Encounters Date Type Department Care Team (Late st Contact Info) Description 03/27/2024 11:00 AM EDT Office Visit Hematology/Oncology at [address] [address] El Bernardo MD [facility] [place] [address] Linda Tamayo APRN [address] [place] [address] DR [place] [address] 04/21/2024 8:00 AM EST Appointment Mammography[place] [address] HEMATOLOGY AND ONCOLOGY [place], [place] [id number] documented as of this encounter Visit Diagnoses Diagnosis Allergic rhinitis due to pollen 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
--- OUTSIDE RECORDS SUMMARY | 2024-02-27 12:44 | XMS_ITS | Encounter Summary ---
[facility] Address [facility] [place] [address] Care Team Providers Care Lehr Loader Name Role Phone Robert Hummel MD Primary Care Provider [phone] Reason for Visit * Reason Comments Allergies Immunotherapy Encounter Details Date Type Department Care Team ([facility] st Contact Info) Description 12/01/2015 10:00 AM EDT [place] [address] Queenie Warren MD [facility] DR ALLERGY [place] [address] Allergic rhinoconjunctivitis; Desensitization to allergens; Environmental allergies Social History [...] Sign Reading Time Taken Comments Blood Pressure 128/86 12/01/2015 10:01 AM EDT Pulse 78 12/01/2015 10:01 AM EDT Temperature - - Respiratory Rate - - Oxygen Saturation - - Inhaled Oxygen Concentration - - Weight 86.2 kg (190 lb) 12/01/2015 10:01 AM EDT Height 167.6 cm (5' 6) 12/01/2015 10:01 AM EDT Body Mass Index 30.67 12/01/2015 10:01 AM EDT documented in this encounter Patient Instructions * Patient Instructions* Queenie Warren MD - 12/01/2015 10:49 AM EDT - Take cetirizine 10mg NIGHTLY. If still drowsy, discontinue and try loratadine 10mg daily. - Start montelukast 10mg nightly - Start Flonase 2 sprays in each nostril once daily - Take Patanol 1 drop in each eye twice daily documented in this encounter Progress Notes * Queenie Warren MD - 12/01/2015 10:22 AM EDT Chief Complaint Patient presents with ??? Allergies ??? Immunotherapy HPI. Rebeca Hernández Is here today for a follow up visit. Last encounter in this section was on 10/27/2015 Allergic rhinoconjunctivitis Patient tried allergy shots. However, she had severe allergy symptoms on the silver vial. Allergy shots will be discontinued because of inability to build up. Last shot was given on 10/27/15. Patient was in [facility] for two weeks and patient felt better. She currently complains of itchy nose and eyes, rhinorrhea and sneezing spells. . No nasal congestion. She takes cetirizine 10mg daily but it makes her drowsy. She also takes fexofenadine daily, but does not feel it helps. She has tried loratadine in the past without any improvement in her allergies. She takes Patanol eye drops 1 drop in each eye daily as needed for allergies. She has not startedthe Flonase or montelukast. Has dust mite covers on pillows and mattress. No history of asthma. Basel in spirometry on 10/28/2015 was normal. Review of Systems: All other systems reviewed and negative, except as noted below. Review of Systems HENT: Positive for congestion. Sneezing, rhinorrhea Respiratory: Positive for cough and shortness of breath. All other systems reviewed and are negative. Allergies, medications, past medical/ surgical history were reviewed and updated in eDH. Allergies: Tramadol; Carvedilol; Iodine; Morphine; Codeine phosphate; Penicillins; and Vicodin [hydrocodone-acetaminophen] Medications: Outpatient Prescriptions Marked as Taking for the 12/01/15 encounter (Office Visit) with Queenie Warren MD Medication Sig Dispense Refill ??? cetirizine (ZYRTEC) 10 mg Tablet Take 1 tablet by mouth daily. 60 tablet 3 ??? fluticasone (FLONASE) 50 mcg/actuation [place], Suspension 2 sprays by Each Nare route daily. 16 g 12 ??? estradiol (VAGIFEM) [address] 1 tablet vaginally twice a week. 8 tablet 11 ??? fexofenadine (JANINA) 180 mg Tablet 1 tab daily prn allergies.Take 1 tab twice daily the day prior and day of receiving allergy shots. 30 tablet 11 Past Medical and Social History: Past Medical History Diagnosis Date ??? Allergic rhinitis ??? Bipolar disorder, rapid cycling ??? Breast cancer Past Surgical History Procedure [...] 02/26/2005 ??? Created by interface SENTINEL NODE INJECTION* / LEFT Procedure Date: 02/26/2005 ??? Pro lap, rmv adnexal structure 04/21/2013 LAPAROSCOPY, REMOVAL OF ADNEXA performed by Carly Chamberlain MD at [facility] MAIN OR ??? Tonsillectomy ??? Adenoidectomy ??? Breast biopsy Right [id number] INVASIVE CA ??? Breast lumpectomy Right 02-26-2005 INVASIVE CA WITH RT TREATMENT Family history: Family History Problem Relation Age of Onset ??? Allergic Rhinitis Father ??? Asthma Neg Hx ??? Breast Cancer Maternal Grandmother ??? Breast Cancer Mother ??? Breast Cancer Other Social history: History Social History ??? Marital status: Spouse name: N/A ??? Number of children: N/A ??? Years of education: N/A Social History Main Topics ??? Smoking status: Never Smoker ??? Smokeless tobacco: Never Used Comment: only exposure was as a child ??? Alcohol use: No Comment: Occasionally ??? [...] and affect - Judgement and insight intact Tests or Procedures: Impression Report Plan: # Allergic rhinoconjunctivitis # Desensitization to allergens # Environmental allergies NOTE IN WEIGHT YARDAGE CHECKER RTC in 1 month eDH record was reviewed. Written instructions were [...] AM EDT Office Visit Hematology/Oncology at [address] [phone] El Bernardo MD [facility] [place] [address] Linda Tamayo APRN [address] [place] [address] DR [place]OLOGY [place] [address] 04/21/2024 8:00 AM EST Appointment Mammography/[place] [phone] Linda Tamayo APRN [address] [place] [address] DR [place]OLOGY [place] [address] documented as of this encounter Procedures Procedure Name Priority Date/Time Associated Diagnosis Comments ALLERGY SCAN 12/29/2015 12:00 AM EDT documented in this encounter Results * SCAN DOC: ALLERGY (12/29/2015 12:00 AM EDT) Narrative 12/29/2015 12:00 AM EDT Ordered by an unspecified provider. Scanning Provider MEDIA MGR SCAN EXT O RDR/RSLT documented in this encounter Visit Diagnoses Diagnosis Allergic rhinoconjunctivitis Acute atopic conjunctivitis Desensitization to allergens Need for desensitization to allergens Environmental allergies Allergic rhinitis, cause unspecified documented in this encounter Care Teams Lehr Loader Relationship Specialty Start Date End Date Robert Hummel MD PCP - General General Internal Medicine 08/05/152 12/30 documented as of this encounter
--- OUTSIDE RECORDS SUMMARY | 2024-02-27 12:44 | XMS_ITS | Encounter Summary ---
Author Organization [facility] Address [facility] [place] [address] Care Team Providers Care Salesperson Terrazzo Tiles Name Role Phone Robert Hummel MD Primary Care Provider [phone] Encounter Details Date Type Department Care Team (Late st Contact Info) Description 08/05/2015 3:00 PM EST Office Visit Hematology/Oncology at [address] [phone] El Bernardo MD [facility] [place] [address] Malignant 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, unspecified site of breast; Chronic lower back pain Social History Tobacco Use Types Packs/Day [...] Sign Reading Time Taken Comments Blood Pressure 116/76 08/05/2015 3:12 PM EST Pulse 93 08/05/2015 3:12 PM EST Temperature 34.4 ??C (93.9 ??F) 08/05/2015 3:12 PM ES T Respiratory Rate 18 08/05/2015 3:12 PM EST Oxygen Saturation 100% 08/05/2015 3:12 PM EST Inhaled Oxygen Concentration - - Weight 86.3 kg (190 lb 5 oz) 08/05/2015 3:12 PM EST Height 167.6 cm (5' 5.98) 08/05/2015 3:12 PM ES T Body Mass Index 30.73 08/05/2015 3:12 PM EST documented in this encounter Progress Notes * El Bernardo MD - 08/04/2015 4:21 PM EST Subjective: Patient ID: Rebeca Hernández [...] with heterologous chondroid differentiation Tumor Grade: High Ittjop-Xykhk-Evgryczqac Score: 9 Tubular Differentiation: 3 Mitotic Rate: [...] RIGHT BREAST BIRADS 4. Suspicious for malignancy ?? 2. BRCA 1 mutation Family hx: [...] same BRCA1 alteration found in her mother ([id number]). Prophylactic BSO 04/2013. Path - Right and left fallopian tubes and ovaries (bilateral salpingo-oophorectomy): No evidence of malignancy. 3. 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 On presentation today, she is feeling fairly well. Her breasts are sore following the mammogram andMRI. She says she has been more fatigued as well. She has pain in her lower back which is not new but is more prominent and affects her sleep. It improves over the course of the day. She has gone to PT in the past for back discomfort. She had a recent dexa scan and apparently there was some thinning of the bones but no intervention was recommended. doesn't have any particular complaints. The right breast discomfort that she had in 12/28 which led to a mammogram is gone. Her appetite is ok. She has gained some weight. She says she is trying to exercise. She has been going to the gym but says she has had [...] is normal. Vitals reviewed. Labs: not done Assessment and Plan: Ms. Hernández is a 54 yo female with a h/o left breast cancer as above. 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 It was hormone receptor and her-2/yeyo negative. She received adjuvant chemotherapy with AC and radiation and completed all therapy in 11/20. She had screening mammogram and MRI on 08/04/15. The mammogram is negative but the MRI shows a suspicious 6 mm area of enhancement in the right breast, apparently without a discrete mass, new comparedwith the prior MRI forn 06/30. An MRI guided bx was recommended. I spoke with Amber in the breast imaging center and she is going to call the patient and schedule it. I will see her after the bx to discuss results. As noted, she is positive for BRCA-1 [...] AM EDT Office Visit Hematology/Oncology at [address] [phone] El Bernardo MD [facility] [place] [address] [address] [place]ATOLOGY [place] [address] 04/21/2024 8:00 AM EST Appointment Mammography/[place] [address] [address] HEMATOLOGY AND ONCOLOGY [place], [place] [address] documented as of this encounter Results * XR Lumbar Spine [...] left female breast, unspecified site of breast Chronic lower back pain Lumbago Chronic lower back pain Lumbago documented in this encounter Care Teams Salesperson Terrazzo Tiles Relationship Specialty Start Date End Date Robert Hummel MD PCP - General General Internal Medicine 08/05/1511/16 documented as of this encounter
--- OUTSIDE RECORDS SUMMARY | 2024-02-27 12:44 | XMS_ITS | Encounter Summary ---
Author Organization [facility] Address [facility] [place] [address] Care Team Providers Care Clinical Research Spec Name Role Phone Robert Hummel MD Primary Care Provider [phone] Reason for Visit * Reason Comments Immunotherapy Encounter Details Date Type Department Care Team (Latest Contact Info) Description 10/19/2015 1:15 PM EDT Clinical [place] [address] Allergic rhinitis due to pollen; Allergic rhinitis [...] Progress Notes * Ankita Guzmán LPN - 10/19/2015 1:19 PM EDT Documentation of screening pre-immunotherapy questionnaire [...] Mix A (F&P Mite) Dilution: silver Dose: 0.25ml Site: right upper arm sq ?? Rxn: none Extract: Mix B (stemphyllium,aspergillus) Dilution: silver Dose: 0.25ml Site: left upper arm sq (u) Rxn: none Extract: Mix C ([place] blue orchard grass,jessica grass,maple) Dilution: silver Dose: 0.25ml Site: left lower arm sq (l) Rxn: none ? Pt was observed here in the waiting area for 30 minutes.?? NO adverse side effects were noted.?? Ptambulated from clinic in stable condition. ? documented in this encounter Plan of Treatment Upcoming Encounters Date Type Department Care Team (Late st Contact Info) Description 03/27/2024 11:00 AM EDT Office Visit Hematology/Oncology at [address] [phone] El Bernardo MD [facility] [address] HEMATOLOGY AND ONCOLOGY [place], [place] [phone] 04/21/2024 8:00 AM EST Appointment Mammography[place] [address] [address] HEMATOLOGY AND ONCOLOGY [place], [place] [phone] documented as of this encounter Visit Diagnoses Diagnosis Allergic rhinitis due to pollen Allergic rhinitis due to mold Allergic rhinitis due to dust mite documented in this encounter Care Teams Clinical Research Spec Relationship Specialty Start Date End Date Robert Hummel MD PCP - General General Internal Medicine 08/05/152 12/30 documented as of this encounter
--- OUTSIDE RECORDS SUMMARY | 2024-02-27 12:44 | XMS_ITS | Encounter Summary ---
Author Organization [facility] Address [facility] [place] [address] Care Team Providers Care Inserter Name Role Phone Robert Hummel MD Primary Care Provider [phone] Encounter Details Date Type Department Care Team (Latest Contact Info) Description 08/17/2015 10:08 AM EST - 08/17/2015 10:10 AM [facility] Encounter Mammography at [facility], [place] [address] Alexi Armstrong MD [facility] [place] [address] Abnormal MRI, breast Discharge Disposition: Home Social [...] 10/12/2016 03/11/2017 documented as of this encounter Progress Notes * Alexi Armstrong MD - 08/15/2015 11:45 AM EST Patient Name: Rebeca Hernández Patient Age: 54 y.o. Birthdate: 1960 Admit date: (Not on file) Attending Physician: Alexi Armstrong MD Pre-procedure note for needle breast biopsies performed in radiology. Procedure date: Scheduled for: Procedure type: right breast MRI guided biopsy Allergies: Tramadol; Carvedilol; Iodine; Morphine; Codeine phosphate; Penicillins; and Vicodin Medications: Current outpatient prescriptions: ??? fluticasone (FLONASE) 50 mcg/actuation [place], Suspension, 2 sprays by Each Nare route daily., Disp: 16 g, Rfl: 12 ??? estradiol (VAGIFEM) 10 mcg Tablet, Place 1 tablet vaginally twice a week., Disp: 8 tablet, Rfl:11 ??? montelukast (SINGULAIR) 10 mg Tablet, Take 1 tab the night prior and night of receiving the allergy shots, Disp: 20 tablet, Rfl: 11 ??? fexofenadine (JANINA) 180 mg Tablet, 1 tab daily prn allergies.Take 1 tab twice daily the day prior and day of receiving allergy shots., Disp: 30 tablet, Rfl: 11 ??? PATANOL 0.1 % Drops, INSTILL ONE DROP TO THE AFFECTED EYE(S) TWICE A DAY NEEDED FOR ALLERGIES, Disp: 5 mL, Rfl: 5 ??? Cholecalciferol, Vitamin D3, (VITAMIN D-3) 2,000 unit Capsule, Take by mouth., Disp: , Rfl: ??? EPINEPHrine (EPIPEN) 0.3 mg/0.3 mL (1:1,000) Auto-Injector, Inject 0.3 mLs into the muscle onceas needed (difficulty breathing, throat swelling, loss of consciousness) for up to 1 dose. Call 911., Disp: 2 each, Rfl: 1 ??? diphenhydrAMINE (BENADRYL) 25 mg capsule, Take 25 mg by mouth every 6 hours as needed., Disp: ,Rfl: ??? ibuprofen (ADVIL;MOTRIN) 600 mg tablet, Take 1 tablet by mouth every 6 hours as needed for Pain., Disp: 30 tablet, Rfl: 0 ??? valACYclovir (VALTREX) 500 mg tablet, Take 500 mg by mouth 2 times daily as needed., Disp: , Rfl: ??? LORazepam (ATIVAN) 1 mg tablet, Take 1 mg by mouth nightly as needed., Disp: , Rfl: No current facility-administered medications for this encounter. Facility-Administered Medications Ordered in Other Encounters: ??? [START ON 08/17/2015] diaZEPam (VALIUM) tablet 5-10 mg, 5-10 mg, Oral, BID PRN, Garrison De Dios MD Anticoagulation status: none stopped on: N/A Imaging reviewed and procedural plan approved by Dr. ALEXI ARMSTRONG MD documented in this encounter Plan of Treatment Upcoming Encounters Date Type Department Care Team (Late st Contact Info) Description 03/27/2024 11:00 AM EDT Office Visit Hematology/Oncology at [address] [phone] El Bernardo MD [facility] [place] [address] [address] HEMATOLOGY AND ONCOLOGY [place], [place] [address] 04/21/2024 8:00 AM EST Appointment Mammography/[place] [phone] Linda Tamayo[address] HEMATOLOGY AND ONCOLOGY [place], [place] [phone] documented as of this encounter Procedures Procedure Name Priority Date/Time Associated Diagnosis Comments MAMMO DIRECT DIGITAL WITH CAD RIGHT Routine 08/17/2015 12:19 PM EST Abnormal MRI, breast SPECIMEN TO PATHOLOGY Routine 08/17/2015 11:49 AM EST SURGICAL PATHOLOGY REPORT Routine 08/17/2015 11:45 AM EST documented in this encounter Results * Mammo Direct Digital [...] of Gadovist. Lesion localization was performed using Jobaline software. Sterile technique was deployed. Approximately 5 cc 1% lidocaine (superficial) and approximately 10 1% lidocaine with epinephrine (deep) used for local anesthesia. A small skin incision was made and a biopsy was performed from a lateral approach. Multiple core biopsy specimens were obtained using a VtagO Atec 20mm MR vacuum assisted device. Satisfactory sampling was obtained. A ATEC top hatchery worker clip was placed. Cranio-caudal and lateral digital mammography performed to determine biopsy marker placement, which was shown to be 3 cm from the biopsy site in medial direction. COMPLICATIONS: None. PROCEDURAL ATTESTATION: Resident: Miguel Bianchi performed the procedure with the resident observing. IMAGING DIFFERENTIAL DIAGNOSIS: FCD, papilloma, CA PATHOLOGIC DIAGNOSIS: FCD Alexi Armstrong MD IMG MAMMO ORDERABLES * Specimen to Pathology (surgical or derm) (08/17/2015 11:49 AM EST) AP Specimen 08/17/2015 11:4 9 AM EST 08/17/2015 11:49 AM EST Narrative [facility] - 08/17/2015 11:49 AM EST Specimen requisition ordered. ??Separate Pathology report to follow Alexi Armstrong MD PATHOLOGY/CYTOLOGY O RDERABLES Performing Organization Address City/State/[facility] Co de Phone Number [facility] [place] [place] [address] * Surgical Pathology Report (08/17/2015 11:45 AM EST) Final Diagnosis [id number] ? Location: 3L The signing pathologist has (i) examined the relevant preparation(s) for the specimen(s) and (ii) rendered or confirmed the diagnosis(es). . ?Surgical Pathology DIAGNOSIS Needle biopsies: ??Right breast. Diagnosis: ??Fibrocystic changes including adenosis, columnar cell change and hyperplasia, cysts, usual ductal hyperplasia, and focal stromal PASH. Microcalcificat ions: ??NA 08/18/15 [facility] 08/18/15 Verified by: ? Zion DO, Reyna CManas ?Pathologist ?(Electronic Signature) The attending pathologist whose signature appears on this report has reviewed all diagnostic slides and has edited the gross and/or microscopic portion of the report in rendering the final pathologic diagnosis. CLINICAL INFORMATION Specimen Submitted: A - Right breast MRI biopsy Clinical History: Mass Clinical Diagnosis: FCD, papilloma, CA Report to: El Bernardo SPECIMEN PROCESSING A - Labeled/Fixativ e: Right breast MRI biopsy, formalin. Quantity/Size: Multiple, 0.2-1.8 cm. Tissue Description: Fragmented, fibrofatty needle core biopsies. Ischemic Time: 10 minutes. Sections/Proces sing: (T6) ??ejr 08/18/2015 10:42 AM EST [facility] BREAST STRUCTURE / Unknown 08/17/2015 11:45 AM EST 08/17/2015 11:45 AM EST Alexi Armstrong MD PATHOLOGY/CYTOLOGY O [place] [facility] [place] [address] documented in this encounter Visit Diagnoses Diagnosis Abnormal MRI, breast Other (abnormal) findings on radiological examination of breast documented in this encounter Administered Medications Inactive Administered Medications - up to 3 most recent administrations Medication Order MAR Action Action Date Dose Rate Site lidocaine (XYLOCAINE) 10 mg/mL (1 %) injection 10 mg 10 mg, Intradermal, ONCE, 1 dose, On Sat08/17/15 at 1215, Routine Given 08/17/2015 11:30 AM EST 10 mg lidocaine-EPINEPHrine 1 %-1:100,000 injection 20 mL 20 mL, Intradermal, ONCE, 1 dose, On Sat08/17/15 at 1215, Routine Given 08/17/2015 11:30 AM EST 20 mLs documented in this encounter Care Teams Inserter Relationship Specialty Start Date End Date Robert Hummel MD PCP - General General Internal Medicine 08/05/1511/16 documented as of this encounter
--- OUTSIDE RECORDS SUMMARY | 2024-02-27 12:45 | XMS_ITS | Encounter Summary ---
Author Organization [facility] Address [facility] [place] [address] Care Team Providers Care Public Policy Mediator Name Role Phone Raoul Michelle YADIRA Primary Care Provider [phone] Reason for Visit * Reason Comments Immunotherapy Encounter Details Date Type Department Care Team ([facility] st Contact Info) Description 01/19/2015 10:30 AM EDT Office Visit Allergy at [facility] [place] [address] ALLERGY, INJECTION Allergic rhinitis due to pollen; Allergic rhinitis, cause unspecified Discharge Disposition: Home Social History Tobacco Use [...] Progress Notes * Marley Bustos LPN - 01/20/2015 4:53 PM EDT Documentation of screening pre-immunotherapy questionnaire [...] 12 hours of receiving your last injection? Yes Dust mites 20 mm red raised area lastinga few days after shot. Will keep at same level this week. 5. Are you on any new medications? Any new eye drops? Please specify. No 6. Have patient confirm that the name and date on his/her vials are correct. Yes Rebeca Hernández has come into the Allergy Clinic for allergy injection. A reported problem with the last grass injection see note dated 12/16/2014. Antihistamine taken as directed. Epipen brought to appointment. Injections given per Dr Warren's orders. Injections given: Building Extract: Mix A (mites) Dilution: blue Dose: 0.4 ml Site: RUE Sub Q Rxn: none Extract: Mix B (mold) Dilution: yellow Dose: 0.1 ml Site: LUE Sub Q (U) Rxn: none Extract: Mix C Dilution: blue Dose: 0.2 ml Site: LUE Sub Q (L) Rxn: none Pt was observed here in the waiting area for 30 minutes. No adverse side effects noted.Pt ambulatedfrom clinic in stable condition. documented in this encounter Plan of Treatment Upcoming Encounters Date Type Department Care Team (Late st Contact Info) Description 03/27/2024 11:00 AM EDT Office Visit Hematology/Oncology at [address] [phone] El Bernardo MD [facility] [place] [address] Linda Tamayo [address] HEMATOLOGY AND ONCOLOGY [place], [place] [address] 04/21/2024 8:00 AM EST Appointment Mammography[place] [address] Linda Tamayo [address] HEMATOLOGY AND ONCOLOGY [place], [place] [phone] documented as of this encounter Visit Diagnoses Diagnosis Allergic rhinitis due to pollen Allergic rhinitis, cause unspecified documented in this encounter Care Teams Public Policy Mediator Relationship Specialty Start Date End Date Michelle Silveira PA PCP - General 05/09/10 08/04/15 documented as of this encounter
--- OUTSIDE RECORDS SUMMARY | 2024-02-27 12:45 | XMS_ITS | Encounter Summary ---
Author Organization [facility] Address [facility] [place] [address] Care Team Providers Care Computer Operations Analyst Name Role Phone Raoul Michelle YADIRA Primary Care Provider [phone] Encounter Details Date Type Department Care Team (Latest Contact Info) Description 12/25/2013 8:21 AM EDT - 12/25/2013 11:59 PM EDT Hospital Encounter Mammography at [facility] [place] [address] El Bernardo MD [facility] [place] [address] Breast cancer, left; BRCA1 positive Discharge Disposition: Home Social History [...] Sig Dispensed Refills Start Date End Date diphenhydrAMINE (BENADRYL) 25 mg capsule Take 25 mg by mouth every 6 hours as needed. 04/12/2016 fexofenadine (JANINA) 180 mg tablet Take 1 tablet by mouth daily. 30 tablet 11/26/2013 04/28/2014 NASONEX 50 mcg/actuation [place] 2 sprays by Nasal route daily. 17 g 12 11/26/2013 04/28/2014 EPINEPHrine (EPIPEN) 0.3 mg/0.3 mL (1:1,000) injection Inject 0.3 mLs into the muscle once as needed (difficulty breathing, throat swelling, loss of consciousness) for up to 1 dose. Call 911. 2 each 1 11/26/2013 06/16/2014 azelastine (ASTELIN) 137 mcg nasal spray 2 sprays by Nasal route 2 times daily. Use in each nostril as directed 30 mL 12 11/26/2013 05/24/2015 olopatadine (PATANOL) 0.1 % ophthalmic solutionIndications:Co njunctivitis, allergic Place 1 drop into both eyes 2 times daily as needed for Allergies (itchy eyes). 5 mL 5 11/26/2013 12/01/2014 estradiol (VAGIFEM) 10 mcg vaginal tabletIndications:[place] pause Place 1 tablet vaginally twice a week. 8 tablet 10 08/27/2013 04/27/2015 ibuprofen (ADVIL;MOTRIN) 600 mg tablet Take 1 [...] AM EDT Office Visit Hematology/Oncology at [address] [phone] El Bernardo MD [facility] [place] [address] Linda Tamayo [address] HEMATOLOGY AND ONCOLOGY [place], [place] [address] 04/21/2024 8:00 AM EST Appointment Mammography[place] [address] Linda Tamayo [address] HEMATOLOGY AND ONCOLOGY [place], [place] [address] documented as of this encounter Procedures Procedure Name Priority Date/Time Associated Diagnosis Comments MAMMO DIRECT DIGITAL UNILATERAL Routine 12/25/2013 9:29 AM EDT documented in this encounter Results * Mammo direct digital unilateral (12/25/2013 9:29 AM EDT) Anatomical Region Laterality Modality Breast N/A Mammography 12/25/2013 9:29 AM EDT Narrative 12/25/2013 3:28 PM EDT UNILATERAL RIGHT MAMMOGRAM AND RIGHT BREAST ULTRASOUND ON 12/25/13: CLINICAL INDICATION: New onset of Right breast pain located pretty deep inside; uncertain if pain is related to chest wall or breast tissue. ??Patient was treated in 2004 for BRCA 1 positive Left breast cancer; status-post lumpectomy, chemotherapy and radiation. Clinician noted 5mm area of nodularity in the lower, outer Right breast at 0800. TECHNIQUE: A metallic marker was placed at the site of the patient detected focal Right breast pain in the upper, outer quadrant. Right MLO, ML and CC views were obtained with direct digital capture as well as a Right breast ultrasound. FINDINGS: This is a (BIRADS Category 1) NEGATIVE Right mammogram. There is an unremarkable fibroglandular pattern in the Right breast which is stable compared to prior studies. There is no mammographic evidence of cancer. Specifically, no mammographic abnormality is seen in the upper, outer Right breast at the site of focal pain. In addition, no mammographic abnormality is seen in the lower, outer Right breast to correspond to the area of palpable nodularity. Targeted Right breast ultrasound to the area of the patient's clinical concern of tenderness in the upper, outer Right breast at 1030, 11cm from the nipple shows no sonographic abnormality. Normal fibroglandular tissue is seen in this region. Targeted Right breast ultrasound to the area of physician concern of palpable nodularity in the lower, outer Right breast at 0700, 5cm from the nipple shows no sonographic abnormality. Normal fibroglandular tissue is seen in this region. The Right breast is of scattered density. CONCLUSION: This is a (BIRADS Category 1) NEGATIVE Right mammogram and Right breast ultrasound. There is no imaging abnormality to correlate with the areas of clinical concern in the Right breast. Therefore, further management should be based on the strength of the clinical findings. Follow-up with the patient's clinician was discussed with the patient who concurs. Routine screening mammography is recommended with the frequency dependent on the patient's age and breast cancer risk factors. Procedure Note Savannah Sandhu MD - 12/25/2013 UNILATERAL RIGHT MAMMOGRAM AND RIGHT BREAST ULTRASOUND ON 12/25/13: CLINICAL INDICATION: New onset of Right breast pain located pretty deep inside; uncertain if pain is related to chest wall or breast tissue.Patient was treated in 2004 for BRCA 1 positive Left breast cancer; status-post lumpectomy, chemotherapy and radiation. Clinician noted 5mm area ofnodularity in the lower, outer Right breast at 0800. TECHNIQUE: A metallic marker was placed at the site of the patientdetected focal Right breast pain in the upper, outer quadrant. Right MLO, ML and CC views were obtained with direct digital capture as well as a Right breast ultrasound. FINDINGS: This is a (BIRADS Category 1) NEGATIVE Right mammogram. There isan unremarkable fibroglandular pattern in the Right breast which is stable compared to prior studies. There is no mammographic evidence of cancer. Specifically, no mammographic abnormality is seen in the upper, outerRight breast at the site of focal pain. In addition, no mammographic abnormalityis seen in the lower, outer Right breast to correspond to the area ofpalpable nodularity. Targeted Right breast ultrasound to the area of the patient's clinicalconcern of tenderness in the upper, outer Right breast at 1030, 11cm from thenipple shows no sonographic abnormality. Normal fibroglandular tissue is seen inthis region. Targeted Right breast ultrasound to the area of physician concernof palpable nodularity in the lower, outer Right breast at 0700, 5cm from the nipple shows no sonographic abnormality. Normal fibroglandular tissue isseen in this region. The Right breast is of scattered density. CONCLUSION: This is a (BIRADS Category 1) NEGATIVE Right mammogram and Right breast ultrasound. There is no imaging abnormality to correlate with the areas of clinicalconcern in the Right breast. Therefore, further management should be based on the strength of the clinical findings. Follow-up with the patient's clinician was discussed with the patient who concurs. Routine screening mammography is recommended with the frequency dependenton the patient's age and breast cancer risk factors. El Bernardo MD IMG MAMMO ORDERABLES documented in this encounter Visit Diagnoses Diagnosis Breast cancer, left Malignant neoplasm of breast (female), unspecified site BRCA1 positive Genetic susceptibility to malignant neoplasm of breast documented in this encounter Care Teams Computer Operations Analyst Relationship Specialty Start Date End Date Michelle Silveira PA PCP - General 05/09/10 08/04/15 documented as of this encounter
--- OUTSIDE RECORDS SUMMARY | 2024-02-27 12:45 | XMS_ITS | Encounter Summary ---
Author Organization [facility] Address [facility] [place] [address] Care Team Providers Care Metal Stud Framer Name Role Phone Raoul Michelle MAY Primary Care Provider [phone] Reason for Visit * Reason Comments Immunotherapy Encounter Details Date Type Department Care Team ([facility] st Contact Info) Description 09/08/2014 1:00 PM EDT Office Visit Allergy at [facility] [place] [address] ALLERGY, INJECTION Allergic rhinitis due to pollen; [...] Progress Notes * Marley Bustos LPN - 09/08/2014 5:15 PM EDT Documentation of screening pre-immunotherapy questionnaire [...] into the Allergy Clinic for allergy injection. Reported swelling and painin left arm lymph nodes, after her shots, which went away a day later. I spoke with Dr. Swanson to see if there was any problem receiving her shots today. She did not think there was. Rebeca will contact her oncologist to see if there is any connection with her previous surgery. Antihistamine taken as directed. Epipen brought to appointment. Injections given per Dr. Warren Orders. Injections given: Building Extract: Mix A Dilution: Green Dose: 0.2 ml Site: LUE Sub Q Rxn: None Extract: Mix B Dilution: Green Dose: 0.2 ml Site: RUE Sub Q (U) Rxn: None Extract: Mix C Dilution: Green Dose: 0.2 ml Site: RUE Sub Q (L) Rxn: None Pt was observed here in the waiting area for 30 minutes. No adverse side effects were noted. Pt ambulated from clinic in stable condition. documented in this encounter Plan of Treatment Upcoming Encounters Date Type Department Care Team (Late st Contact Info) Description 03/27/2024 11:00 AM EDT Office Visit Hematology/Oncology at [address] [phone] El Bernardo MD [facility] [place] [address] Linda Tamayo [address] HEMATOLOGY AND ONCOLOGY [place], [place] [address] 04/21/2024 8:00 AM EST Appointment Mammography/[place] [address] Linda Tamayo [address] HEMATOLOGY AND ONCOLOGY [place], [place] [address] documented as of this encounter Visit Diagnoses Diagnosis Allergic rhinitis due to pollen Allergic rhinitis, cause unspecified documented in this encounter Care Teams Metal Stud Framer Relationship Specialty Start Date End Date Michelle Silveira PA PCP - General 05/09/10 08/04/15 documented as of this encounter
--- OUTSIDE RECORDS SUMMARY | 2024-02-27 12:45 | XMS_ITS | Encounter Summary ---
Author Organization [facility] Address [facility] [place] [address] Care Team Providers Care Piping Drafter Name Role Phone Raoul Michelle YADIRA Primary Care Provider [phone] Reason for Visit * Reason Comments Immunotherapy Encounter Details Date Type Department Care Team ([facility] st Contact Info) Description 09/30/2014 11:00 AM EDT Office Visit Allergy at [facility] [place] [address] ALLERGY, INJECTION Allergic rhinitis due to pollen; [...] Progress Notes * Marley Bustos LPN - 09/30/2014 3:42 PM EDT Documentation of screening pre-immunotherapy questionnaire [...] come into the Allergy Clinic for allergy injection.No problems reported from last injections. Antihistamine taken as directed. Epipen brought to appointment. Injections given perDr. Kelvin Orders. Injections given: Building Extract: Mix A Dilution: Green Dose: 0.3 ml Site: RUE Sub Q Rxn: None Extract: Mix B Dilution: Green Dose: 0.3 ml Site: LUE Sub Q (U) Rxn: None Extract: Mix C Dilution: Green Dose: 0.3 ml Site: LUE Sub Q (L) Rxn: None Pt was observed here in the waiting area for 30 minutes. No adverse side effects were noted. Pt ambulated from clinic in stable condition. documented in this encounter Plan of Treatment Upcoming Encounters Date Type Department Care Team (Late st Contact Info) Description 03/27/2024 11:00 AM EDT Office Visit Hematology/Oncology at [address] [address] El Bernardo MD [facility] [place] [address] [address] HEMATOLOGY [place] [address] 04/21/2024 8:00 AM EST Appointment Mammography/[place] [address] Linda Tamayo [address] HEMATOLOGY AND ONCOLOGY [place], [place] [address] documented as of this encounter Visit Diagnoses Diagnosis Allergic rhinitis due to pollen Allergic rhinitis, cause unspecified documented in this encounter Care Teams Piping Drafter Relationship Specialty Start Date End Date Michelle Silveira PA PCP - General 05/09/10 08/04/15 documented as of this encounter
--- OUTSIDE RECORDS SUMMARY | 2024-02-27 12:45 | XMS_ITS | Encounter Summary ---
Author Organization [facility] Address [facility] [place] [address] Care Team Providers Care Physiologist Name Role Phone Raoul Michelle YADIRA Primary Care Provider [phone] Reason for Visit * Reason Comments Immunotherapy Encounter Details Date Type Department Care Team ([facility] st Contact Info) Description 10/27/2014 10:30 AM EDT Office Visit Allergy at [facility] [place] [place] [address] ALLERGY, INJECTION Allergic rhinitis due to pollen; [...] Progress Notes * Marley Bustos LPN - 10/28/2014 12:56 PM EDT Documentation of screening pre-immunotherapy questionnaire [...] Injections given: Building Extract: Mix A Dilution: Blue Dose: 0.05 ml Site: RUE Sub Q Rxn: 20 mm flare Extract: Mix B Dilution: Blue Dose: 0.05 ml Site: LUE Sub Q (U) Rxn: 20 mm flare Extract: Mix C Dilution: Blue Dose: 0.05 ml Site: LUE Sub Q (L) Rxn: None Pt was observed here in the waiting area for 30 minutes. No adverse side effects were noted. Pt ambulated from clinic in stable condition. documented in this encounter Plan of Treatment Upcoming Encounters Date Type Department Care Team (Late st Contact Info) Description 03/27/2024 11:00 AM EDT Office Visit Hematology/Oncology at [address] [address] lE Bernardo MD [facility] [place] [address] [address] HEMATOLOGY [place] [address] 04/21/2024 8:00 AM EST Appointment Mammography/[place] [address] Linda Tamayo [address] HEMATOLOGY AND ONCOLOGY [place], [place] [id number] documented as of this encounter Visit Diagnoses Diagnosis Allergic rhinitis due to pollen Allergic rhinitis, cause unspecified documented in this encounter Care Teams Physiologist Relationship Specialty Start Date End Date Michelle Silveira PA PCP - General 05/09/10 08/04/15 documented as of this encounter
--- OUTSIDE RECORDS SUMMARY | 2024-02-27 12:45 | XMS_ITS | Encounter Summary ---
Author Organization [facility] Address [facility] [place] [address] Care Team Providers Care Teller Head Name Role Phone Raoul Michelle YADIRA Primary Care Provider [phone] Reason for Visit * Reason Comments Immunotherapy Encounter Details Date Type Department Care Team ([facility] st Contact Info) Description 12/02/2014 9:30 AM EDT Office Visit Allergy at [place] [address] ALLERGY, INJECTION Allergic rhinitis due to pollen; [...] Progress Notes * Ankita Guzmán LPN - 12/02/2014 10:40 AM EDT Documentation of screening pre-immunotherapy questionnaire [...] Orders. Injections given: Building Extract: Mix A (mites) Dilution: Blue Dose: 0.1 ml Site: RUE Sub Q Rxn: None Extract: Mix B (molds) Dilution: Blue Dose: 0.1 ml Site: LUE Sub Q (U) Rxn: None Extract: Mix C (pollens) Dilution: Blue Dose: 0.1 ml Site: LUE Sub Q (L) Rxn: None Pt was observed here in the waiting area for 30 minutes. No adverse side effects were noted. Pt ambulated from clinic in stable condition. documented in this encounter Plan of Treatment Upcoming Encounters Date Type Department Care Team (Late st Contact Info) Description 03/27/2024 11:00 AM EDT Office Visit Hematology/Oncology at [address] [address] El Bernardo MD [facility] [place] [address] Linda Tamayo [address] HEMATOLOGY AND ONCOLOGY [place], [place] [address] 04/21/2024 8:00 AM EST Appointment Mammography/[place] [address] Linda Tamayo [address] HEMATOLOGY AND ONCOLOGY [place], [place] [id number] documented as of this encounter Visit Diagnoses Diagnosis Allergic rhinitis due to pollen Allergic rhinitis, cause unspecified documented in this encounter Care Teams Teller Head Relationship Specialty Start Date End Date Michelle Silveira PA PCP - General 05/09/10 08/04/15 documented as of this encounter
--- OUTSIDE RECORDS SUMMARY | 2024-02-27 12:45 | XMS_ITS | Encounter Summary ---
Author Organization [facility] Address [facility] [place] [address] Care Team Providers Care Tire Molder Name Role Phone Raoul Michelle YADIRA Primary Care Provider [phone] Reason for Visit * Reason Comments Immunotherapy Encounter Details Date Type Department Care Team ([facility] st Contact Info) Description 02/23/2015 1:15 PM EDT Office Visit Allergy at [facility] [place] [address] ALLERGY, INJECTION Allergy to mites; Allergy to mold; Allergy to pollen Discharge Disposition: Home Social History Tobacco Use [...] Progress Notes * Ankita Guzmán LPN - 02/23/2015 1:28 PM EDT Documentation of screening pre-immunotherapy questionnaire responses 1. Have you had increased asthma symptoms(chest tightness,increased cough,wheezing or shortness of breath) in the past week ? no 2. Have you had increased allergy symptoms(itching [...] appointment. Injections given per Dr Warren's orders. FEV1/Peak Flow-N/A Injections given: Maintenance Extract: Mix A (F&P Mite) Dilution: yellow Dose: 0.1ml Site: RUE USB Q Rxn: none Extract: Mix B (stemphyllium solani,aspergillus fumigatus) Dilution: yellow Dose: 0.1ml Site: LUE SUB Q (U) Rxn: none Extract: Mix C ([place] blue,orchard grass,maple tree) Dilution: blue Dose: 0.35ml Site: LUE SUB Q (L) Rxn: none Pt was observed here in the waiting area for 30 minutes. NO adverse side effects were noted. Pt ambulated from clinic in stable condition. documented in this encounter Plan of Treatment Upcoming Encounters Date Type Department Care Team (Late st Contact Info) Description 03/27/2024 11:00 AM EDT Office Visit Hematology/Oncology at [address] [phone] El Bernardo MD [facility] [place] [address] Linda Tamayo [address] HEMATOLOGY AND ONCOLOGY [place], [place] [address] 04/21/2024 8:00 AM EST Appointment Mammography[place] [address] Linda Tamayo [address] HEMATOLOGY AND ONCOLOGY [place], [place] [address] documented as of this encounter Visit Diagnoses Diagnosis Allergy to mites Allergy, unspecified not elsewhere classified Allergy to mold Allergy to pollen Allergic rhinitis due to pollen documented in this encounter Care Teams Tire Molder Relationship Specialty Start Date End Date Michelle Silveira PA PCP - General 05/09/10 08/04/15 documented as of this encounter
--- OUTSIDE RECORDS SUMMARY | 2024-02-27 12:45 | XMS_ITS | Encounter Summary ---
Author Organization [facility] Address [facility] [place] [address] Care Team Providers Care Webfed Offset Press Operator Name Role Phone Raoul Michelle YADIRA Primary Care Provider [phone] Encounter Details Date Type Department Care Team (Latest Contact Info) Description 08/11/2014 12:27 PM EST - 08/11/2014 11:59 PM EST Hospital Encounter Mammography at [facility] [place] [address] CLINIC, DR JAN Bernardo, El Mariee MD [facility] [place] [address] Breast cancer, left breast Discharge Disposition: Home Social History Tobacco [...] dose. Call 911. 2 each 1 06/16/2014 fexofenadine (JANINA) 180 mg Tablet Take 1 tablet by mouth daily as needed (Take 1 tab at least 1 hour prior to allergy shot appointment). 30 tablet 11 06/16/2014 03/04/2015 diphenhydrAMINE (BENADRYL) 25 mg capsule Take 25 mg by mouth every 6 hours as needed. 04/12/2016 azelastine (ASTELIN) 137 mcg nasal spray 2 sprays by Nasal route 2 times daily. Use in each nostril as directed 30 mL 12 11/26/2013 05/24/2015 olopatadine (PATANOL) 0.1 % ophthalmic solutionIndications:Co njunctivitis, allergic Place 1 drop into both eyes 2 times daily as needed for Allergies (itchy eyes). 5 mL 5 11/26/2013 12/01/2014 estradiol (VAGIFEM) 10 mcg vaginal tabletIndications:[place] pause Place 1 tablet vaginally twice a [...] AM EDT Office Visit Hematology/Oncology at [address] [address] El Bernardo MD [facility] [place] [address] Linda Tamayo [address] HEMATOLOGY AND ONCOLOGY [place], [place] [address] 04/21/2024 8:00 AM EST Appointment Mammography[place] [address] Linda Tamayo [address] HEMATOLOGY AND ONCOLOGY [place], [place] [address] documented as of this encounter Procedures Procedure Name Priority Date/Time Associated Diagnosis Comments MAMMO SCREENING CAD BILATERAL Routine 08/11/2014 12:54 PM EST documented in this encounter Results * Mammo digital bilateral Screening with CAD (08/11/2014 12:54 PM EST) Anatomical Region Laterality Modality Breast Bilateral Mammography 08/11/2014 12:5 4 PM EST Narrative 08/12/2014 11:53 AM EST Reason for Exam: Screening Technique: Craniocaudal (CC) and Medio-lateral Oblique (MLO) views of both breasts obtained with direct digital capture. The exam was evaluated by CAD version 8.3.17. Findings: This is a negative mammogram (ACR Category 1). There is a stable fibroglandular pattern without significant change from prior studies. There is no mammographic evidence of cancer. The breasts are of scattered density. History of Breast Cancer status post BCT. There are treatment related changes in the left breast. CONCLUSION: This is a NEGATIVE mammogram (ACR Category 1). Routine screening mammography is recommended with the frequency dependent upon the patients age and breast cancer risk factors. A letter has been sent to this patient by the breast imaging center. Procedure Note Deisy Bangura MD - 08/12/2014 Reason for Exam: Screening Technique: Craniocaudal (CC) and Medio-lateral Oblique (MLO) views of both breasts obtained with direct digital capture. The exam was evaluated by CAD version 8.3.17. Findings: This is a negative mammogram (ACR Category 1). There is a stablefibroglandular pattern without significant change from prior studies. There is no mammographic evidence of cancer. The breasts are of scattered density. History of Breast Cancer status post BCT. There are treatment related changes in the left breast. CONCLUSION: This is a NEGATIVE mammogram (ACR Category 1). Routine screening mammography is recommended with the frequency dependentupon the patients age and breast cancer risk factors. A letter has been sent to this patient by the breast imaging center. El Bernardo MD IMG MAMMO ORDERABLES documented in this encounter Visit Diagnoses Diagnosis Breast cancer, left breast Malignant neoplasm of breast (female), unspecified site documented in this encounter Care Teams Webfed Offset Press Operator Relationship Specialty Start Date End Date Michelle Silveira PA PCP - General 05/09/10 08/04/15 documented as of this encounter
--- OUTSIDE RECORDS SUMMARY | 2024-02-27 12:45 | XMS_ITS | Encounter Summary ---
Author Organization [facility] Address [facility] [place] [address] Care Team Providers Care Width Stripper Name Role Phone Raoul Michelle YADIRA Primary Care Provider [phone] Reason for Visit * Reason Comments Immunotherapy Encounter Details Date Type Department Care Team ([facility] st Contact Info) Description 11/17/2014 11:00 AM EDT Office Visit Allergy at [facility] [place] [address] Allergic rhinitis due to pollen; Allergic rhinitis, cause unspecified Social History Tobacco Use Types Packs/Day Years [...] Progress Notes * Marley Bustos LPN - 11/17/2014 11:34 AM EDT Documentation of screening pre-immunotherapy questionnaire [...] Building Extract: Mix A Dilution: Green Dose: 0.4 ml Site: RUE Sub Q Rxn: None Extract: Mix B Dilution: Green Dose: 0.4 ml Site: LUE Sub Q (U) Rxn: None Extract: Mix C Dilution: Green Dose: 0.4 ml Site: LUE Sub Q (L) Rxn: None Pt was observed here in the waiting area for 30 minutes. No adverse side effects were noted. Pt ambulated from clinic in stable condition. documented in this encounter Plan of Treatment Upcoming Encounters Date Type Department Care Team (Late st Contact Info) Description 03/27/2024 11:00 AM EDT Office Visit Hematology/Oncology at [address] [address] El Bernardo MD [facility] [place] [address] [address] [place] [address] 04/21/2024 8:00 AM EST Appointment Mammography/[place] [address] [address] HEMATOLOGY AND ONCOLOGY [place], [place] [address] documented as of this encounter Visit Diagnoses Diagnosis Allergic rhinitis due to pollen Allergic rhinitis, cause unspecified documented in this encounter Care Teams Width Stripper Relationship Specialty Start Date End Date Michelle Silveira PA PCP - General 05/09/10 08/04/15 documented as of this encounter
--- OUTSIDE RECORDS SUMMARY | 2024-02-27 12:45 | XMS_ITS | Encounter Summary ---
Author Organization [facility] Address [facility] [place] [address] Care Team Providers Care Market Research Lead Name Role Phone Raoul Michelle YADIRA Primary Care Provider [phone] Reason for Visit * Reason Comments Immunotherapy Encounter Details Date Type Department Care Team ([facility] st Contact Info) Description 11/11/2014 4:15 PM EDT Office Visit Allergy at [facility] [place] [address] ALLERGY, INJECTION Allergic rhinitis due to pollen; [...] Progress Notes * Marley Bustos LPN - 11/11/2014 4:37 PM EDT Documentation of screening pre-immunotherapy questionnaire [...] A Dilution: Green Dose: 0.3 ml Site: LUE Sub Q Rxn: None Extract: Mix B Dilution: Green Dose: 0.3 ml Site: RUE Sub Q (U) Rxn: None Extract: Mix C Dilution: Green Dose: 0.3 ml Site: RUE Sub Q (L) Rxn: 20 mm flare Pt was observed here in the waiting area for 30 minutes. No adverse side effects were noted. Pt ambulated from clinic in stable condition. documented in this encounter Plan of Treatment Upcoming Encounters Date Type Department Care Team (Late st Contact Info) Description 03/27/2024 11:00 AM EDT Office Visit Hematology/Oncology at [address] [address] El Bernardo MD [facility] [place] [address] [address] [place] [address] 04/21/2024 8:00 AM EST Appointment Mammography/[place] [address] Linda Tamayo [address] HEMATOLOGY AND ONCOLOGY [place], [place] [address] documented as of this encounter Visit Diagnoses Diagnosis Allergic rhinitis due to pollen Allergic rhinitis, cause unspecified documented in this encounter Care Teams Market Research Lead Relationship Specialty Start Date End Date Michelle Silveira PA PCP - General 11/23/10 2/18/16 documented as of this encounter
--- OUTSIDE RECORDS SUMMARY | 2024-02-27 12:45 | XMS_ITS | Encounter Summary ---
Author Organization [facility] Address [facility] [place] [address] Care Team Providers Care Restaurant Crew Member Name Role Phone Raoul Michelle MAY Primary Care Provider [phone] Reason for Visit * Reason Comments Immunotherapy Encounter Details Date Type Department Care Team ([facility] st Contact Info) Description 08/19/2014 11:00 AM EST Office Visit Allergy at [facility] [place] [address] ALLERGY, INJECTION Allergic rhinitis due to pollen; [...] Progress Notes * Marley Bustos LPN - 08/19/2014 11:29 AM EST Documentation of screening pre-immunotherapy questionnaire [...] Injections given: Building Extract: Mix A Dilution: Silver Dose: 0.4 ml Site: LUE Sub Q Rxn: None Extract: Mix B Dilution: Silver Dose: 0.4 ml Site: RUE Sub Q (U) Rxn: None Extract: Mix C Dilution: Silver Dose: 0.4 ml Site: RUE Sub Q (L) Rxn: 10 mm flare Pt was observed here in the waiting area for 30 minutes. No adverse side effects were noted. Pt ambulated from clinic in stable condition. documented in this encounter Plan of Treatment Upcoming Encounters Date Type Department Care Team (Late st Contact Info) Description 03/27/2024 11:00 AM EDT Office Visit Hematology/Oncology at [address] [address] El Bernardo MD [facility] [place] [address] [address] [place] [address] 04/21/2024 8:00 AM EST Appointment Mammography/[place] [address] Linda Tamayo [address] HEMATOLOGY AND ONCOLOGY [place], [place] [address] documented as of this encounter Visit Diagnoses Diagnosis Allergic rhinitis due to pollen Allergic rhinitis, cause unspecified documented in this encounter Care Teams Restaurant Crew Member Relationship Specialty Start Date End Date Michelle Silveira PA PCP - General 05/09/10 08/04/15 documented as of this encounter
--- OUTSIDE RECORDS SUMMARY | 2024-02-27 12:45 | XMS_ITS | Encounter Summary ---
Author Organization [facility] [place] [address] Care Team Providers Care Senior Ui Developer Name Role Phone RaoulMichelle YADIRA Primary Care Provider [phone] Encounter Details Date Type Department Care Team (Late st Contact Info) Description 06/25/2014 [place] [address] Queenie Warren MD [facility] [place] [address] Social History Tobacco Use Types Packs/Day Years [...] as of this encounter Progress Notes * Queenie Warren MD - 06/25/2014 11:24 AM EST IMMUNOTHERAPY PRESCRIPTION AND PREPARATION NOTE [facility]; Allergy Clinic NAME: Rebeca Hernández : 1960 INSTRUCTIONS (REVIEW WITH PATIENT BEFORE EVERY SHOT): 1. 30 MINUTE WAIT 2. EPIPEN AVAILABLE ON DAY OF ALLERGY SHOT 3. 24 HOUR NON-SEDATING ANTI-HISTAMINE ON DAY OF ALLERGY SHOT 4. AVOID VIGOROUS EXERCISE ON DAY OF SHOT VIAL #A Item # Allergen and concentration Amount (ml) Final Concentration B64 F Mite (farinae) 10,000 AU/ml 1 1,000 AU/ml B70 P Mite (pteronyssinus) 10,000 AU/ml 1 1,000 AU/ml Diluent (HSA) 8 Total 10 ml New RX x Refill Dilutions: 10 fold (yellow) x 100 fold (blue) x 1,000 fold (green) x 10,000 fold (silver) x Starting Vial: 10,000 fold dilution (silver) which contains 0.2 AU/ml DF and DP Starting Dose: 0.05ml Frequency As per protocol Duration As per protocol VIAL #B Item # Allergen and concentration Amount (ml) Final Concentration M33 Stemphyllium Solani 1:40 w/v 2 1:200 w/v M3 Aspergillus fumigatus 1:20 w/v 1 1:200w/v Diluent (HSA) 7.0 Total 10 ml New RX x Refill Dilutions: 10 fold (yellow) x 100 fold (blue) x 1,000 fold (green) x 10,000 fold (silver) x Starting Vial: 10,000 fold dilution (silver) which contains 1:2,000,000 Stemphyllium solani and 1:2,000,000 Aspergillus fumigatus Starting Dose: 0.05 ml Frequency As per protocol Duration As per protocol VIAL #C Item # Allergen and concentration Amount (ml) Final Concentration T16 [place] blue 100K BAU 0.1 1,000 BAU T20 Orchard grass 100K BAU 0.1 1,000 BAU T28 Arnol grass 100K BAU 0.1 1,000 BAU G110 Maple 1: 20 w/v 1.0 1: 200 w/v Diluent (HSA) 8.7 Total 10 ml New RX x Refill Dilutions: 10 fold (yellow) x 100 fold (blue) x 1,000 fold (green) x 10,000 fold (silver) x Starting Vial: 10,000 fold dilution (silver) which contains 0.1 BAU/ml k[place] blue grass, 0.1 BAU/mL orchard grass, 0.1 BAU/mL Arnol grass , and 1:2,000,000 w/v maple tree Starting Dose: 0.05 ml Frequency As per protocol Duration As per protocol documented in this encounter Plan of Treatment Upcoming Encounters Date Type Department Care Team (Late [facility] Info) Description 03/27/2024 11:00 AM EDT Office Visit Hematology/Oncology at [address] [address] El Bernardo MD [facility] [place] [address] [address] HEMATOLOGY AND ONCOLOGY [place], [place] [address] 04/21/2024 8:00 AM EST Appointment Mammography/[place] [address] Linda Tamayo, [address] HEMATOLOGY AND ONCOLOGY [place], [place] [id number] documented as of this encounter Visit Diagnoses Not on filedocumented in this encounter Care Teams Senior Ui Developer Relationship Specialty Start Date End Date Michelle Silveira PA PCP - General 05/09/10 08/04/15 documented as of this encounter
--- OUTSIDE RECORDS SUMMARY | 2024-02-27 12:45 | XMS_ITS | Encounter Summary ---
Author Organization [facility] Address [facility] [place] [address] Care Team Providers Care Wireless Operator Name Role Phone Michelle Silveira Primary Care Provider [phone] Reason for Visit * Reason Comments Immunotherapy Encounter Details Date Type Department Care Team ([facility] st Contact Info) Description 08/11/2014 10:15 AM EST Office Visit Allergy at [facility] [place] [address] ALLERGY, INJECTION Allergic rhinitis due to pollen; [...] Progress Notes * Marley Bustos LPN - 08/11/2014 2:32 PM EST Documentation of screening pre-immunotherapy questionnaire responses 1. Have you had increased asthma symptoms(chest tightness,increased cough,wheezing or shortness of breath) in the past week ? No 2. Have you had increased allergy symptoms(itching eyes or nose,sneezing,runny nose,post nasal drip, or throat clearing) in the past week ? No 3. Have you had a cold, respiratory tract infection, or flu-like symptoms in the past two weeks ? No 4. Did you have any problems such as increased allergy or asthma symptoms, hives, or generalized itching within 12 hours of receiving your last injection ? No 5. Are you on any new medications ? Any new eye drops ? Please specify. No 6. Have patient confirm that the name and date on his/her vials are correct. Yes Rebeca Hernández has come into the Allergy Clinic for allergy injection. No reported problems with the last shot. Antihistamine taken as directed. Epipen brought to appointment. Injections given per Dr. Warren Orders. Injections given: Building Extract: Mix A Dilution: Silver Dose: 0.3 ml Site: RUE Sub Q Rxn: None Extract: Mix B Dilution: Silver Dose: 0.3 ml Site: LUE Sub Q (U) Rxn: None Extract: Mix C Dilution: Silver Dose: 0.3 ml Site: LUE Sub Q (L) Rxn: None Pt was observed here in the waiting area for 30 minutes. No adverse side effects were noted. Pt ambulated from clinic in stable condition. documented in this encounter Plan of Treatment Upcoming Encounters Date Type Department Care Team (Late st Contact Info) Description 03/27/2024 11:00 AM EDT Office Visit Hematology/Oncology at [address] [address] El Bernardo MD [facility] [place] [address] [address] [place] [address] 04/21/2024 8:00 AM EST Appointment Mammography/[place] [address] Linda Tamayo [address] HEMATOLOGY AND ONCOLOGY [place], [place] [address] documented as of this encounter Visit Diagnoses Diagnosis Allergic rhinitis due to pollen Allergic rhinitis, cause unspecified documented in this encounter Care Teams Wireless Operator Relationship Specialty Start Date End Date Michelle Silveira PA PCP - General 05/09/10 08/04/15 documented as of this encounter
--- OUTSIDE RECORDS SUMMARY | 2024-02-27 12:45 | XMS_ITS | Encounter Summary ---
Author Organization [facility] Address [facility] [place] [address] Care Team Providers Care Rip/Mould Operator Name Role Phone Raoul Michelle YADIRA Primary Care Provider Encounter Details Date Type Department Care Team (Late st Contact Info) Description 12/25/2013 8:10 AM EDT - 12/25/2013 8:20 AM EDT Hospital En[place] [address] Social History Tobacco Use Types Packs/Day Years [...] tablet by mouth daily. 30 tablet 12 11/26/2013 04/28/2014 NASONEX 50 mcg/actuation Poneto 2 sprays by Nasal route daily. 17 [...] AM EDT Office Visit Hematology/Oncology at [address] [address] El Bernardo MD [facility] [place] [address] Linda [address]ayo [address] HEMATOLOGY AND ONCOLOGY [place], [place] [address] 04/21/2024 8:00 AM EST Appointment Mammography/[place] [address] Linad Tamayo [address] HEMATOLOGY AND ONCOLOGY [place], [place] [id number] documented as of this encounter Procedures Procedure Name Priority Date/Time Associated Diagnosis Comments MAMMO BREAST US LIMITED Routine 12/25/2013 9:30 AM EDT documented in this encounter Results * Mammo breast US unilateral bilateral (12/25/2013 9:30 AM EDT) Anatomical Region Laterality Modality Breast N/A Mammography 12/25/2013 9:30 AM EDT Narrative 12/25/2013 3:28 PM EDT [...] patient's age and breast cancer risk factors. Bettie MÉNDEZ MAMMO ORDERABLES documented in this encounter Visit Diagnoses Not on filedocumented in this encounter Care Teams Rip/Mould Operator Relationship Specialty Start Date End Date Michelle Silveira PA PCP - General 05/09/10 08/04/15 documented as of this encounter
--- OUTSIDE RECORDS SUMMARY | 2024-02-27 12:45 | XMS_ITS | Encounter Summary ---
Author Organization Counts Include [facility] Address [facility] [place] [address] Care Team Providers Care Christmas Bell Ringer Name Role Phone RaoulMichelle YADIRA Primary Care Provider [phone] Reason for Visit * Reason Onset Date Comments Medication Refill 12/01/2014 Encounter Details Date Type Department Care Team (Late Contact Info) Description 12/01/2014 [place] [address] Queenie Warren MD [facility] DR [place] [address] Social History Tobacco Use Types Packs/Day Years [...] AM EDT Office Visit Hematology/Oncology at [address] [address] El Bernardo MD [facility] [place] [address] Linda Tamayo APRN [address] [place] [address] [place] [address] 04/21/2024 8:00 AM EST Appointment Mammography/[place] [address] Linda Tamayo, LIZABETH [address] [place] [address] DR [place] [address] documented as of this encounter Visit Diagnoses Not on filedocumented in this encounter Care Teams Christmas Bell Ringer Relationship Specialty Start Date End Date Michelle Silveira PA PCP - General 05/09/10 08/04/15 documented as of this encounter
--- OUTSIDE RECORDS SUMMARY | 2024-02-27 12:45 | XMS_ITS | Encounter Summary ---
Author Organization [facility] Address [facility] [place] [address] Care Team Providers Care Inventory Clerk Name Role Phone Raoul Michelle YADIRA Primary Care Provider [phone] Reason for Visit * Reason Comments Immunotherapy Encounter Details Date Type Department Care Team ([facility] st Contact Info) Description 01/05/2015 11:00 AM EDT Office Visit Allergy at [facility] [place] [address] ALLERGY, INJECTION Allergic rhinitis due to pollen; [...] Progress Notes * Marley Bustos LPN - 01/05/2015 2:54 PM EDT Documentation of screening pre-immunotherapy questionnaire [...] Extract: Mix A (mites) Dilution: blue Dose: 0.3 ml Site: LUE Sub Q Rxn: none Extract: Mix B (mold) Dilution: blue Dose: 0.4 ml Site: RUE Sub Q (U) Rxn: none Extract: Mix C Dilution: blue Dose: 0.1 ml Site: LUE Sub Q (L) Rxn: none Pt was observed here in the waiting area for 30 minutes. No adverse side effects noted.Pt ambulatedfrom clinic in stable condition. documented in this encounter Plan of Treatment Upcoming Encounters Date Type Department Care Team (Late st Contact Info) Description 03/27/2024 11:00 AM EDT Office Visit Hematology/Oncology at [address] [phone] El Bernardo MD [facility] [place] [address] Linda Tamayo [address] HEMATOLOGY [place] [address] 04/21/2024 8:00 AM EST Appointment Mammography/[place] [address] Linda Tamayo [address] HEMATOLOGY AND [place]OGY [place], [place] [address] documented as of this encounter Visit Diagnoses Diagnosis Allergic rhinitis due to pollen Allergic rhinitis, cause unspecified documented in this encounter Care Teams Inventory Clerk Relationship Specialty Start Date End Date Michelle Silveira PA PCP - General 05/09/10 08/04/15 documented as of this encounter
--- OUTSIDE RECORDS SUMMARY | 2024-02-27 12:45 | XMS_ITS | Encounter Summary ---
Author Organization [facility] Address [facility] [place] [address] Care Team Providers Care Silversmith Apprentice Name Role Phone RaoulMichelle YADIRA Primary Care Provider [phone] Reason for Visit * Reason Comments Immunotherapy Encounter Details Date Type Department Care Team ([facility] Contact Info) Description 11/04/2014 9:30 AM EDT Office Visit Allergy at [facility] [place] [address] ALLERGY, INJECTION Allergic rhinitis due to pollen; [...] Progress Notes * Queenie Warren MD - 11/05/2014 11:42 AM EDT Reviewed documentation of Ankiat Guzmán. Recommend decreasing AIT- all three shots to 0.3cc of the green vial and continue to build up. At this dose she did not have any LLR. Message sent to Allergy nursing staff. * Ankita Guzmán LPN - 11/04/2014 9:39 AM EDT Documentation of screening pre-immunotherapy questionnaire [...] of receiving your last injection ? yes, generalized itching,redness on both arms for 2 days. 5. Are you on any new medications ? Any new eye drops ? Please specify 6. Have patient confirm that the name areand date on his/her vials are correct. yes Rebeca Hernández has come into the Allergy Clinic for allergy injection. A reported problem with the last leticia(s).Generalized itching,redness(almost size of her palm.) on both arms for 2 days. Asked patient what she takes for an antihistamine. She takes Neva am of injections.Asked that if her injections sites are still red the nxt day that she continues to take the Neva daily until redness resolves. Antihistamine taken as directed. Epipen brought to appointment. Injections given per Dr Warren's rders. Injections given: Building Extract: Mix A (mites) Dilution: blue Dose: 0.05ml Site: Lue Sub Q Rxn: none Extract: Mix B (mold) Dilution: blue Dose: 0.05ml Site: Rue Sub Q (U) Rxn: none Extract: Mix C (pollens) Dilution: blue Dose: 0.05ml Site: Rue Sub Q (L) Rxn: 5mm wheal/15mm flare Pt was observed here in the waiting area for 30 minutes. Pt ambulated from clinic in stable condition. documented in this encounter Plan of Treatment Upcoming Encounters Date Type Department Care Team (Late st Contact Info) Description 03/27/2024 11:00 AM EDT Office Visit Hematology/Oncology at [address] [address] El Bernardo MD [facility] [place] [address] [address] HEMATOLOGY AND ONCOLOGY [place], [place] [id number] 04/21/2024 8:00 AM EST Appointment Mammography/[place] [address] Linda Tamayo, [address] HEMATOLOGY AND ONCOLOGY [place], [place] [id number] documented as of this encounter Visit Diagnoses Diagnosis Allergic rhinitis due to pollen Allergic rhinitis, cause unspecified documented in this encounter Care Teams Silversmith Apprentice Relationship Specialty Start Date End Date Michelle Silveira PA PCP - General 05/09/10 08/04/15 documented as of this encounter
--- OUTSIDE RECORDS SUMMARY | 2024-02-27 12:45 | XMS_ITS | Encounter Summary ---
Author Organization [facility] Address [facility] [place] [address] Care Team Providers Care Legal Transcriptionist Name Role Phone Michelle Silveira YADIRA Primary Care Provider [phone] Reason for Visit * Reason Onset Date Comments Other 03/02/2015 Encounter Details Date Type Department Care Team ([facility] st Contact Info) Description 03/02/2015 Telephone Allergy at [facility] [place] [address] Ankita Guzmán LPN Other Social History Tobacco Use Types Packs/Day Years [...] Telephone Encounter - Queenie Warren MD - 03/02/2015 2:09 PM EDT Review and agree with plan as documented by Ankita Guzmán. Patient scheduled to be seen on Saturday. Hold shots until visit is completed. * Telephone Encounter - Ankita Guzmán LPN - 03/02/2015 10:38 AM EDT Pt called today c/o after she left last week of :: c/o hard to breath after her injections after she had left the clinic and happened On/off shortness of breath for 2-4 days . Also reports her grass injection was itchy for 4 days afterwards. She says that she took benadryl later on that night. Pt reports that she did not use her Epipen. Reports that she still wants to continue he injections. Let her know no more injections until seen by Dr Warren. Pt has an appointment to be seen on 03/04/2015 at 11 am to discuss what her options are. Ankita Guzmán LPN at 02/23/2015 1:28 PM Author Type: Licensed Practical Nurse Status: Signed Technology Intern: Ankita Guzmán LPN (Licensed Practical Nurse) Expand All Collapse All Documentation of screening [...] AM EDT Office Visit Hematology/Oncology at [address] [address] [facility] [place] [address] [address] HEMATOLOGY AND ONCOLOGY [place], [place] [address] 04/21/2024 8:00 AM EST Appointment Mammography/[place] [address] [address] HEMATOLOGY AND ONCOLOGY [place], [place] [address] documented as of this encounter Visit Diagnoses Not on filedocumented in this encounter Care Teams Legal Transcriptionist Relationship Specialty Start Date End Date Michelle Silveira PA PCP - General 05/09/10 08/04/15 documented as of this encounter
--- OUTSIDE RECORDS SUMMARY | 2024-02-27 12:45 | XMS_ITS | Encounter Summary ---
Author Organization [facility] Address [facility] [address] Care Team Providers Care Bellman Captain Name Role Phone Raoul Michelle YADIRA Primary Care Provider [phone] Encounter Details Date Type Department Care Team (Latest Contact Info) Description 04/28/2014 11:17 AM EST - 04/28/2014 11:59 PM EST Hospital Encounter Pulmonology at [facility] [place] [address] SCHEDULE 1, PFT Environmental allergies; Dyspnea Discharge Disposition: Home Social History Tobacco Use [...] Sig Dispensed Refills Start Date End Date predniSONE (DELTASONE) 10 mg TabletIndications:urti caria Take 10 mg by mouth daily. Indications: urticaria 07/23/2014 diphenhydrAMINE (BENADRYL) 25 mg capsule Take 25 mg by mouth every 6 hours as needed. 04/12/2016 EPINEPHrine (EPIPEN) 0.3 mg/0.3 mL (1:1,000) injection [...] 11/26/2013 12/01/2014 estradiol (VAGIFEM) 10 mcg vaginal tabletIndications:[place] pause Place 1 tablet vaginally twice a [...] 10/12/2016 03/11/2017 documented as of this encounter Procedure Notes * Napoleon Cobb Jr., MD - 04/29/2014 4:52 PM ESTAssociated Order(s): PULMONARY FUNCTION TEST Pulmonary Function Testing Spirometry is normal. Lung volumes reveal mild reduction in total lung capacity, and reduced RV. RV/TLC is reduced. Diffusing capacity is normal. Oxygen saturation is normal. Napoleon Cobb MD Pulmonary Medicine documented in this encounter Plan of Treatment Upcoming Encounters Date Type Department Care Team (Late st Contact Info) Description 03/27/2024 11:00 AM EDT Office Visit Hematology/Oncology at [address] [phone] El Bernardo MD [facility] [place] [address] Linda Tamayo APRN [address] [place] [address] DR [place] [address] 04/21/2024 8:00 AM EST Appointment Mammography/[place] [address] Linda Tamayo, LIZABETH [address] [place] [address] DR [place] [address] documented as of this encounter Procedures Procedure Name Priority Date/Time Associated Diagnosis Comments COMMON PULMONARY FUNCTION TEST Routine 04/29/2014 4:53 PM EST Environmental allergies Dyspnea documented in this encounter Results * Pulmonary Function Testing (04/29/2014 4:53 PM EST) Narrative Napoleon Cobb Jr., MD - 04/29/2014 4:53 PM EST Napoleon Cobb Jr., MD ? 04/29/2014 ??4:53 PM Pulmonary Function Testing Spirometry is normal. ??Lung volumes reveal mild reduction in total lung capacity, and reduced RV. ??RV/TLC is reduced. ?? Diffusing capacity is normal. ??Oxygen saturation is normal. Napoleon Cobb MD Pulmonary Medicine Queenie Warren MD PFT ORDERABLES documented in this encounter Visit Diagnoses Diagnosis Environmental allergies Allergic rhinitis, cause unspecified Dyspnea Other dyspnea and respiratory abnormality documented in this encounter Care Teams Bellman Captain Relationship Specialty Start Date End Date Michelle Silveira PA PCP - General 05/09/10 08/04/15 documented as of this encounter
--- OUTSIDE RECORDS SUMMARY | 2024-02-27 12:45 | XMS_ITS | Encounter Summary ---
Author Organization [facility] Address [facility] [place] [address] Care Team Providers Care Media Sales Executive Name Role Phone Dena Alfonso LIZABETH Primary Care Provider [phone] Reason for Visit * Reason Comments Medication Refill Encounter Details Date Type Department Care Team (Late Contact Info) Description 09/11/2014 Refill [place] [address] Carly Solano MD [facility] [place] [address] Social History Tobacco Use Types Packs/Day Years [...] AM EDT Office Visit Hematology/Oncology at [address] [phone] El Bernardo MD [facility] [place] [address] Linda Tamayo APRN [address] [place] [address] DR HEMATOLOGY [place] [address] 04/21/2024 8:00 AM EST Appointment Mammography[place] [address] Linda Tamayo APRN [address] [place] [address] DR HEMATOLOGY AND ONCOLOGY [place], [place] [id number] documented as of this encounter Visit Diagnoses Not on filedocumented in this encounter Care Teams Media Sales Executive Relationship Specialty Start Date End Date Dena Alfonso APRN [address] [place] [address] PCP - General Geriatric Medicine 10/12/16 documented as of this encounter
--- OUTSIDE RECORDS SUMMARY | 2024-02-27 12:45 | XMS_ITS | Encounter Summary ---
Author Organization [facility] Address [facility] [place] [address] Care Team Providers Care Rn Palliative Name Role Phone Raoul Michelle YADIRA Primary Care Provider [phone] Reason for Visit * Reason Comments Follow-up Allergies Encounter Details Date Type Department Care Team ([facility] st Contact Info) Description 04/28/2014 9:45 AM EST Follow-Up Allergy at [facility] [place] [address] Queenie Warren MD [facility] [place] [address] Allergic rhinoconjunctivitis, bilateral; Environmental allergies; Dyspnea; Rash Discharge Disposition: Home Social History Tobacco Use [...] Sign Reading Time Taken Comments Blood Pressure 111/71 04/28/2014 10:11 AM EST Pulse 86 04/28/2014 10:11 AM EST Temperature 36.9 ??C (98.5 ??F) 04/28/2014 10:[address] Respiratory Rate 16 04/28/2014 10:11 AM EST Oxygen Saturation 98% 04/28/2014 10:11 AM EST room air Inhaled Oxygen Concentration - - Weight 81.2 kg (179 lb) 04/28/2014 10:11 AM EST Height 166.4 cm (5' 5.5) 04/28/2014 10:11 AM ES T Body Mass Index 29.33 04/28/2014 10:11 AM EST documented in this encounter Patient Instructions * Patient Instructions* Queenie Warren MD - 04/28/2014 10:41 AM EST - Restart Nasonex and Astelin - Continue Dlyocc17as daily as needed - Will hold off on starting allergy shots until your breathing problems are improved - If we decide to start allergy shots in the future, skin tests will need to be repeated. Recommendincluding testing to feathers to the standard adult panel since you are exposed to them. - Continue environmental control measures. - Schedule breathing tests to evaluate your breathing issues - Follow up with lock stitch channeler as previously scheduled. Discuss with him if its okay to start allergy shots with your history of cardiac disease. You cannot be on a beta dmitry if you start allergy shots. - If rash persists, please follow up with your primary care provider documented in this encounter Progress Notes * Queenie Warren MD - 04/28/2014 10:23 AM EST Chief Complaint Patient presents with ??? Follow-up ??? Allergies [place] [facility] [place] chest: negative for pulmonary emboli. CxR 04-21-14, Normal chest. Patient seen in the ED for SOB on 04/21/14. A/w CP that improved with nitroglycerin. PE unremarkable. Troponins negative x2. Normal WBC. BNP 35. Diagnosis: Chest pain of unknown etiology. No evidence of cardiomyopathy. Plan: metoprolol 25mg BID. F/u with cardiac tests. HPI. Rebeca Hernández Is here today for a follow up visit. Last encounter in this section was on 11/26/2013 Patient Active Problem List Diagnosis ??? Environmental allergies ??? Conjunctivitis, allergic ??? Chronic allergic rhinitis ??? Nevus ??? BRCA1 positive ??? Breast cancer Overview Note: A. S/P partial L mastectomy 2004 B. Treated with cytoxan and doxorubicin and radiation therapy. C. BRAC1 pos- bilat oophorectomy in 04/2013 prophylactically ??? Depression ??? Chest pain Overview Note: A. Stress test [facility] 06/28: exercised to 10.1 METs and 152 bpm. Neck pain at 6 mins. No EKG changes. ??? Cardiomyopathy Overview Note: A. Echo 2011: LVEF 45% with global HK. B. Cardiac cath 08/15/11: Nl coronary arteries. LVEF 55%. LVEDP 13. C. H/O breast cancer. Treated with 6 cycles doxorubicin (total 360 mg/m2) and cyclophosphamide - complete in 2005. Pretreatment MUGA 2004 - nl LV function. ??? GERD (gastroesophageal reflux disease) ??? Palpitations ??? S/P TKR (total knee replacement) Overview Note: Left #1 Chronic allergic rhinitis #2 Environmental allergies She has nasal congestion and rhinorrhea and post nasal drip worse in the morning. She has dark circles under her eyes without any associated itchiness. She takes the Zyrtec prn potential exposure. She feels better when she takes Zyrtec.She took Nasonex and Astelin during the summer. She uses Patanol eye drops. She stopped them because she was having headaches. She was on allergy shots until 01/2013. She stopped them because she was having LLR. Janina was stopped because it caused mood changes. #3 Dyspnea She has no history of asthma. In Feb, she had a URI, with a cough that followed after exposure to mold during the summer. She feels SOB with exertion since the URI. A couple of days ago she had chest tightness. She was seen in the ER in [facility]. Per the patient, CT chest was performed and PE was ruled out. She has had hives since receiving contrast and taking antihistamines and prednisone. Not using any inhalers. No hemoptysis. Plans to follow up with lock stitch channeler because of history of cardiomyopathy. She has a new dog.Dog is excluded from the bedroom. She has two new birds. She sleeps with a down cover. Has wall to wall carpet in the bedroom. She has dust mite covers on her pillow and mattress. She washes her linens weekly in hot water. Review of Systems: All other systems reviewed and negative, except as noted below. Review of Systems HENT: Positive for congestion. Rhinorrhea Respiratory: Positive for cough, shortness of breath and wheezing. Allergies, medications, past medical/ surgical history were reviewed and updated in eDH. Allergies: Tramadol; Carvedilol; Iodine; Morphine; Codeine phosphate; Penicillins; Unknown; and Vicodin Medications: Outpatient Prescriptions Marked as Taking for the 04/28/14 encounter (Follow-Up) with Georges Warren MD Medication Sig Dispense Refill ??? diphenhydrAMINE (BENADRYL) 25 mg capsule Take 25 mg by mouth every 6 hours as needed. ??? azelastine (ASTELIN) 137 mcg nasal spray 2 sprays by Nasal route 2 times daily. Use in each nostril as directed 30 mL 12 ??? olopatadine (PATANOL) 0.1 % ophthalmic solution Place 1 drop into both eyes 2 times daily as needed for Allergies (itchy eyes). 5 mL 5 ??? [DISCONTINUED] fexofenadine (JANINA) 180 mg tablet Take 1 tablet by mouth daily. 30 tablet 12 ??? estradiol (VAGIFEM) [address] 1 tablet vaginally twice a week. 8 tablet 10 ??? ibuprofen (ADVIL;MOTRIN) 600 mg tablet Take 1 tablet by mouth every 6 hours as needed for Pain.30 tablet 0 ??? valACYclovir (VALTREX) 500 mg tablet Take 500 mg by mouth 2 times daily as needed. No Facility-Administered Medications for the 04/28/14 encounter (Follow-Up) with Queenie Warren MD. Past Medical and Social History: Past Medical History Diagnosis Date ??? Bipolar disorder, rapid cycling ??? Allergic rhinitis Past Surgical History Procedure Laterality Date ??? [...] 02/26/2005 ??? Created by interface SENTINEL NODE INJECTION/ LEFT Procedure Date: 02/26/2005 ??? Lap, rmv adnexal structure 04/21/2013 LAPAROSCOPY, REMOVAL OF ADNEXA performed by Carly Chamberlain MD at [facility] MAIN OR ??? Tonsillectomy ??? Adenoidectomy Family history: Family History Problem Relation Age of Onset ??? Allergic Rhinitis Father ??? Asthma Neg Hx Social history: History Social History ??? Marital [...] rate and rhythm - No pedal swelling Lymph: - No significant cervical, supraclavicular or infraclavicular lymphadenopathy Musculoskeletal: - Nl gait and station Extremities: - No clubbing, cyanosis, or edema Skin: - Scattered small erythematous papules on left breast and abdomen Neuro/Psych: - Nl and age appropriate mood and affect - Judgement and insight intact Tests or Procedures: 11-18-12 Allergy skin prick tests by Dr. Swanson. Appropriate histamine and saline responses. Positive to positive to tree,weed, and grass pollens, dog,cat,dust mites, and molds. Impression Report Plan: #1 Chronic allergic rhinitis - Not well controlled. - Reviewed skin test results from 11-18-12. Environmental allergies identified. - Restart Nasonex and Astelin - Continue Zyrtec 10mg once daily prn allergies - Discussed allergy shot administration, protocol, risks and benefits. Currently, not a candidate because of ongoing dyspnea and on beta dmitry. She will discuss with lock stitch channeler if she can switch to an alternative to beta dmitry. She will also pursue workup of her dyspnea with her PCP and cardio logist. - If she becomes a candidate for allergy shots in the future, skin tests will need to be repeated. Recommend adding feather to the skin test panel since she is exposed to feathers. #2 Environmental allergies - Continue environmental control measures #3 Dyspnea - Etiology unknown. Differential includes underlying post viral bronchitis, pulmonary and cardiac disorders. Patient has history of cardiac disease. - Her history of allergies increases her propensity for asthma. Thus, will check PFTs for changes associated with asthma. - Follow up with lock stitch channeler as previously scheduled. Discuss stopping beta dmitry since it is a contraindications to starting allergy shots. - Allergy shots can't be started until respiratory status has improved. #4 Rash - May be secondary to irritant dermatitis - Recommend follow up with PCP Orders Placed This Encounter Procedures ??? Pulmonary Function Testing RTC in 4 weeks eDH record was reviewed. Written instructions were [...] AM EDT Office Visit Hematology/Oncology at [address] [phone] El Bernardo MD [facility] [place] [address] Linda Tamayo [address] [place] [address] 04/21/2024 8:00 AM EST Appointment Mammography/[place] [address] Linda Tamayo [address] HEMATOLOGY AND ONCOLOGY [place], [place] [address] documented as of this encounter Results * Pulmonary Function Testing [...] in this encounter Visit Diagnoses Diagnosis Allergic rhinoconjunctivitis, bilateral Environmental allergies Allergic rhinitis, cause unspecified Dyspnea Other dyspnea and respiratory abnormality Rash Rash and other nonspecific skin eruption Environmental allergies Allergic rhinitis, cause unspecified Dyspnea Other dyspnea and respiratory abnormality documented in this encounter Care Teams Rn Palliative Relationship Specialty Start Date End Date Michelle Silveira PA PCP - General 05/09/10 08/04/15 documented as of this encounter
--- OUTSIDE RECORDS SUMMARY | 2024-02-27 12:45 | XMS_ITS | Encounter Summary ---
Author Organization [facility] Address [facility] [place] [address] Care Team Providers Care Plant Pathology Teacher Name Role Phone Raoul Michelle MAY Primary Care Provider [phone] Reason for Visit * Reason Comments Immunotherapy Encounter Details Date Type Department Care Team ([facility] st Contact Info) Description 07/22/2014 11:45 AM EST Office Visit Allergy at [facility] [place] [address] ALLERGY, INJECTION Allergic rhinitis due to pollen; [...] Progress Notes * Marley Bustos LPN - 07/22/2014 2:56 PM EST Documentation of screening pre-immunotherapy questionnaire [...] Building Extract: Mix A Dilution: Silver Dose: 0.1 ml Site: RUE Sub Q Rxn: None Extract: Mix B Dilution: Silver Dose: 0.1 ml Site: LUE Sub Q (U) Rxn: None Extract: Mix C Dilution: Silver Dose: 0.1 ml Site: LUE Sub Q (L) Rxn: None Pt was observed here in the waiting area for 30 minutes. No adverse side effects were noted. Pt ambulated from clinic in stable condition. documented in this encounter Plan of Treatment Upcoming Encounters Date Type Department Care Team (Late st Contact Info) Description 03/27/2024 11:00 AM EDT Office Visit Hematology/Oncology at [address] [address] El Bernardo MD [facility] [place] [address] [address] [place] [address] 04/21/2024 8:00 AM EST Appointment Mammography[place] [address] Linda Tamayo [address] HEMATOLOGY AND ONCOLOGY [place], [place] [address] documented as of this encounter Visit Diagnoses Diagnosis Allergic rhinitis due to pollen Allergic rhinitis, cause unspecified documented in this encounter Care Teams Plant Pathology Teacher Relationship Specialty Start Date End Date Michelle Silveira PA PCP - General 05/09/10 08/04/15 documented as of this encounter
--- OUTSIDE RECORDS SUMMARY | 2024-02-27 12:45 | XMS_ITS | Encounter Summary ---
Author Organization [facility] Address [facility] [place] [address] Care Team Providers Care Underground Roof Bolter Name Role Phone Raoul Michelle MAY Primary Care Provider [phone] Reason for Visit * Reason Comments Immunotherapy Encounter Details Date Type Department Care Team ([facility] st Contact Info) Description 07/14/2014 10:15 AM EST Office Visit Allergy at [facility] [place] [address] ALLERGY, INJECTION Allergic rhinitis due to pollen; [...] Progress Notes * Marley Bustos LPN - 07/14/2014 12:33 PM EST Documentation of screening pre-immunotherapy questionnaire [...] hours of receiving your last injection ? N/A 5. Are you on any new medications [...] Building Extract: Mix A Dilution: Silver Dose: 0.05 ml Site: LUE Sub Q Rxn: None Extract: Mix B Dilution: Silver Dose: 0.05 ml Site: RUE Sub Q (U) Rxn: None Extract: Mix C Dilution: Silver Dose: 0.05 ml Site: LUE Sub Q (L) Rxn: None Pt was observed here in the waiting area for 30 minutes. No adverse side effects were noted. Pt ambulated from clinic in stable condition. documented in this encounter Plan of Treatment Upcoming Encounters Date Type Department Care Team (Late st Contact Info) Description 03/27/2024 11:00 AM EDT Office Visit Hematology/Oncology at [address] [address] El Bernardo MD [facility] [place] [address] [address] [place] [address] 04/21/2024 8:00 AM EST Appointment Mammography/[place] [address] Linda Tamayo [address] HEMATOLOGY AND ONCOLOGY [place], [place] [address] documented as of this encounter Visit Diagnoses Diagnosis Allergic rhinitis due to pollen Allergic rhinitis, cause unspecified documented in this encounter Care Teams Underground Roof Bolter Relationship Specialty Start Date End Date Michelle Silveira PA PCP - General 05/09/10 08/04/15 documented as of this encounter
--- OUTSIDE RECORDS SUMMARY | 2024-02-27 12:45 | XMS_ITS | Encounter Summary ---
Author Organization [facility] Address [facility] [place] [address] Care Team Providers Care Marketing Technology Coordinator Name Role Phone Raoul Michelle MAY Primary Care Provider [phone] Reason for Visit * Reason Comments Immunotherapy Encounter Details Date Type Department Care Team ([facility] st Contact Info) Description 09/15/2014 10:45 AM EDT Office Visit Allergy at [facility] [place] [address] ALLERGY, INJECTION Allergic rhinitis due to pollen; [...] Progress Notes * Marley Bustos LPN - 09/15/2014 11:25 AM EDT Documentation of screening pre-immunotherapy questionnaire [...] AM EDT Office Visit Hematology/Oncology at [address] [address] El Bernardo MD [facility] [place] [address] [address] [place] [address] 04/21/2024 8:00 AM EST Appointment Mammography/[place] [address] Linda Tamayo [address] HEMATOLOGY AND ONCOLOGY [place], [place] [address] documented as of this encounter Visit Diagnoses Diagnosis Allergic rhinitis due to pollen Allergic rhinitis, cause unspecified documented in this encounter Care Teams Marketing Technology Coordinator Relationship Specialty Start Date End Date Michelle Silveira PA PCP - General 11/23/10 2/18/16 documented as of this encounter
--- OUTSIDE RECORDS SUMMARY | 2024-02-27 12:45 | XMS_ITS | Encounter Summary ---
Author Organization [facility] [place] [address] Care Team Providers Care Geospatial Engineer Name Role Phone Michelle Silveira YADIRA Primary Care Provider [phone] Encounter Details Date Type Department Care Team (Late Contact Info) Description 07/14/2014 [place] [phone] Casey Hernandez MD [facility] [address] [place] [address] Social History Tobacco Use Types Packs/Day Years [...] encounter Miscellaneous Notes * Telephone Encounter - Casey Hernandez MD - 07/14/2014 8:24 AM EST Extracts checked documented in this encounter Plan of Treatment Upcoming Encounters Date Type Department Care Team (Late Contact Info) Description 03/27/2024 11:00 AM EDT Office Visit Hematology/Oncology at [address] [address] El Bernardo MD [facility] [place] [address] [address] HEMATOLOGY AND ONCOLOGY [place], [place] [id number] 04/21/2024 8:00 AM EST Appointment Mammography/[place] [address] Linda Tamay[address] HEMATOLOGY AND ONCOLOGY [place], [place] [id number] documented as of this encounter Visit Diagnoses Not on filedocumented in this encounter Care Teams Geospatial Engineer Relationship Specialty Start Date End Date Michelle Silveira PA PCP - General 05/09/10 08/04/15 documented as of this encounter
--- OUTSIDE RECORDS SUMMARY | 2024-02-27 12:45 | XMS_ITS | Encounter Summary ---
Author Organization [facility] Address [facility] [place] [address] Care Team Providers Care Sanding Machine Tender Automatic Name Role Phone Raoul Michelle MAY Primary Care Provider [phone] Reason for Visit * Reason Comments Immunotherapy Encounter Details Date Type Department Care Team ([facility] st Contact Info) Description 12/09/2014 10:00 AM EDT Office Visit Allergy at [facility] [place] [address] ALLERGY, INJECTION Allergic rhinitis due to pollen; [...] Progress Notes * Marley Bustos LPN - 12/09/2014 3:33 PM EDT Documentation of screening pre-immunotherapy questionnaire [...] Building Extract: Mix A Dilution: Blue Dose: 0.1 ml Site: LUE Sub Q Rxn: None Extract: Mix B Dilution: Blue Dose: 0.1 ml Site: RUE Sub Q (U) Rxn: None Extract: Mix C Dilution: Blue Dose: 0.1 ml Site: RUE Sub Q (L) Rxn: None Pt was observed here in the waiting area for 30 minutes. No adverse side effects were noted. Pt ambulated from clinic in stable condition. documented in this encounter Plan of Treatment Upcoming Encounters Date Type Department Care Team (Late st Contact Info) Description 03/27/2024 11:00 AM EDT Office Visit Hematology/Oncology at [address] [address] El Bernardo MD [facility] [place] [place] [address] [address] [place] [address] 04/21/2024 8:00 AM EST Appointment Mammography/[place] [address] Linda Tamayo [address] HEMATOLOGY AND ONCOLOGY [place], [place] [address] documented as of this encounter Visit Diagnoses Diagnosis Allergic rhinitis due to pollen Allergic rhinitis, cause unspecified documented in this encounter Care Teams Sanding Machine Tender Automatic Relationship Specialty Start Date End Date Michelle Silveira PA PCP - General 05/09/10 08/04/15 documented as of this encounter
--- OUTSIDE RECORDS SUMMARY | 2024-02-27 12:45 | XMS_ITS | Encounter Summary ---
Author Organization [facility] Address [facility] [place] [address] Care Team Providers Care Barrel Rifler Operator Name Role Phone RaoulMichelle YADIRA Primary Care Provider [phone] Encounter Details Date Type Department Care Team (Late Contact Info) Description 06/07/2014 Orders Only Hematology Oncology at [address] [phone] El Bernardo MD [facility] [place] [address] Social History Tobacco Use Types Packs/Day Years [...] 11:00 AM EDT Office Visit Hematology/Oncology at [address] [phone] El Bernardo MD [facility] [place] [address] Linda Tamayo APRN [address] [place] [address] HEMATOLOGY [place] ONCOLOGY [place], [place] [address] 04/21/2024 8:00 AM EST Appointment Mammography/[place] [address] Linda Tamayo APRN [address] [place] [address] [place] [address] documented as of this encounter Visit Diagnoses Not on filedocumented in this encounter Care Teams Barrel Rifler Operator Relationship Specialty Start Date End Date Michelle Silveira PA PCP - General 05/09/10 08/04/15 documented as of this encounter
--- OUTSIDE RECORDS SUMMARY | 2024-02-27 12:45 | XMS_ITS | Encounter Summary ---
Author Organization [facility] Address [facility] [place] [address] Care Team Providers Care Box Car Bracer Name Role Phone Raoul Michelle YADIRA Primary Care Provider Reason for Visit * Reason Comments Immunotherapy Encounter Details Date Type Department Care Team ([facility] st Contact Info) Description 09/01/2014 10:30 AM EDT Office Visit Allergy at [facility] [place] [address] ALLERGY, INJECTION Allergic rhinitis due to pollen; [...] Progress Notes * Marley Bustos LPN - 09/01/2014 4:50 PM EDT Documentation of screening pre-immunotherapy questionnaire [...] Building Extract: Mix A Dilution: Green Dose: 0.1 ml Site: RUE Sub Q Rxn: None Extract: Mix B Dilution: Green Dose: 0.1 ml Site: RUE Sub Q (U) Rxn: None Extract: Mix C Dilution: Green Dose: 0.1 ml Site: RUE Sub Q (L) Rxn: None Pt was observed here in the waiting area for 30 minutes. No adverse side effects were noted. Pt ambulated from clinic in stable condition. documented in this encounter Plan of Treatment Upcoming Encounters Date Type Department Care Team (Late st Contact Info) Description 03/27/2024 11:00 AM EDT Office Visit Hematology/Oncology at [address] [phone] El Bernardo MD [facility] [place] [address] [address] HEMATOLOGY [place] [address] 04/21/2024 8:00 AM EST Appointment Mammography/[place] [address] Linda Tamayo [address] HEMATOLOGY AND ONCOLOGY [place], [place] [address] documented as of this encounter Visit Diagnoses Diagnosis Allergic rhinitis due to pollen Allergic rhinitis, cause unspecified documented in this encounter Care Teams Box Car Bracer Relationship Specialty Start Date End Date Michelle Silveira PA PCP - General 05/09/10 08/04/15 documented as of this encounter
--- OUTSIDE RECORDS SUMMARY | 2024-02-27 12:45 | XMS_ITS | Encounter Summary ---
Author Organization [facility] [place] [address] Care Team Providers Care Line Out Man Name Role Phone Michelle Silveira YADIRA Primary Care Provider [phone] Reason for Visit * Reason Onset Date Comments Other 07/14/2014 EXTRACT BILLING Encounter Details Date Type Department Care Team ([facility] st Contact Info) Description 07/14/[address] [facility] [place] [address] Ankita Guzmán LPN Other (EXTRACT BILLING) Social History Tobacco Use Types Packs/Day Years [...] Telephone Encounter - Ankita Guzmán LPN - 07/20/2014 2:21 PM EST VIAL #A Item # Allergen and concentration [...] As per protocol Duration As per protocol For billing purposes Mix A(mites) with building 5ml vials contain a total of 45 doses For billing purposes Mix B(mold) with building 5ml vials contain a total of 45 doses For billing purposes Mix C (pollens) with building 5ml vials contain a total of 45 doses For a total of 135 doses for billing purposes. Above doses are for a build up starting with the green vial. If build up starts with silver vial it will be 45 doses per mix. documented in this encounter Plan of Treatment Upcoming Encounters Date Type Department Care Team (Late st Contact Info) Description 03/27/2024 11:00 AM EDT Office Visit Hematology/Oncology at [address] [phone] El Bernardo MD [facility] [place] [address] [address] HEMATOLOGY AND ONCOLOGY [place], [place] [address] 04/21/2024 8:00 AM EST Appointment Mammography/[place] [address] Linda Tamayo, [address] HEMATOLOGY AND ONCOLOGY [place], [place] [id number] documented as of this encounter Visit Diagnoses Not on filedocumented in this encounter Care Teams Line Out Man Relationship Specialty Start Date End Date Michelle Silveira PA PCP - General 05/09/10 08/04/15 documented as of this encounter
--- OUTSIDE RECORDS SUMMARY | 2024-02-27 12:45 | XMS_ITS | Encounter Summary ---
Author Organization [facility] Address [facility] [place] [address] Care Team Providers Care Crumb Packer Name Role Phone Raoul Michelle YADIRA Primary Care Provider [phone] Reason for Visit * Reason Comments Immunotherapy Encounter Details Date Type Department Care Team ([facility] st Contact Info) Description 02/09/2015 1:30 PM EDT Office Visit Allergy at [facility] [place] [address] ALLERGY, INJECTION Allergic rhinitis due to pollen; [...] Progress Notes * Ankita Guzmán LPN - 02/09/2015 1:49 PM EDT Documentation of screening pre-immunotherapy questionnaire responses 1. Have you had increased asthma symptoms(chest tightness,increased cough,wheezing or shortness of breath) in the past week ? no 2. Have you had increased allergy symptoms(itching eyes or nose,sneezing,runny nose,post nasal drip, or throat clearing) in the past week ? yes, c/o fall weeds coming out. 3. Have you had a cold, respiratory tract infection, or flu-like symptoms in the past two weeks ? no) 4. Did you have any problems such as increased allergy or asthma symptoms, hives, or generalized itching within 12 hours of receiving your last injection ? no 5. Are you on any new medications ? Any new eye drops ? Please specify___NOne 6. Have patient confirm that the name areand date on his/her vials are correct. yes Rebeca Hernández has come into the Allergy Clinic for allergy injection. No reported problems with the last shot. Antihistamine taken as directed. Epipen brought to appointment. Injections given per Dr Warren's orders. Injections given: Maintenance/Building Extract: Mix A (mites) Dilution: yellow Dose: 0.05ml Site: LUE SUB Q Rxn: c/o itching at injection site/benadryl cream applied. No redness noted. Extract: Mix B (mol) Dilution: yellow Dose: 0.05ml Site: RUE SUB Q (U) Rxn: c/o itching at injection site/benadryl cream applied. No redness noted Extract: Mix C Dilution: blue Dose: 0.3ml Site: RUE SUB Q (L) Rxn: c/o itching at injection site/benadryl cream applied. NO redness noted. Pt was observed here in the waiting area for 30 minutes. Pt ambulated from clinic in stable condition. documented in this encounter Plan of Treatment Upcoming Encounters Date Type Department Care Team (Late st Contact Info) Description 03/27/2024 11:00 AM EDT Office Visit Hematology/Oncology at [address] [phone] El Bernardo MD [facility] [place] [address] Linda Tamayo [address] [place] [address] 04/21/2024 8:00 AM EST Appointment Mammography/[place] [address] Linda Tamayo [address] [place] [address] documented as of this encounter Visit Diagnoses Diagnosis Allergic rhinitis due to pollen Allergic rhinitis, cause unspecified documented in this encounter Care Teams Crumb Packer Relationship Specialty Start Date End Date Michelle Silveira PA PCP - General 05/09/10 08/04/15 documented as of this encounter
--- OUTSIDE RECORDS SUMMARY | 2024-02-27 12:45 | XMS_ITS | Encounter Summary ---
Author Organization [facility] Address [facility] [place] [address] Care Team Providers Care Multiple Sclerosis Nurse Name Role Phone Raoul Michelle MAY Primary Care Provider [phone] Reason for Visit * Reason Comments Immunotherapy Encounter Details Date Type Department Care Team ([facility] st Contact Info) Description 07/28/2014 11:15 AM EST Office Visit Allergy at [facility] [place] [address] ALLERGY, INJECTION Allergic rhinitis due to pollen; [...] Progress Notes * Marley Bustos LPN - 07/28/2014 12:09 PM EST Documentation of screening pre-immunotherapy questionnaire [...] Building Extract: Mix A Dilution: Silver Dose: 0.2 ml Site: LUE Sub Q Rxn: None Extract: Mix B Dilution: Silver Dose: 0.2 ml Site: RUE Sub Q (U) Rxn: None Extract: Mix C Dilution: Silver Dose: 0.2 ml Site: RUE Sub Q (L) Rxn: None Pt was observed here in the waiting area for 30 minutes. No adverse side effects were noted. Pt ambulated from clinic in stable condition. documented in this encounter Plan of Treatment Upcoming Encounters Date Type Department Care Team (Late st Contact Info) Description 03/27/2024 11:00 AM EDT Office Visit Hematology/Oncology at [address] [phone] El Bernardo MD [facility] [place] [address] [address] [place]ATOLOG[place] [address] 04/21/2024 8:00 AM EST Appointment Mammography/[place] [address] Linda Tamayo [address] HEMATOLOGY AND ONCOLOGY [place], [place] [address] documented as of this encounter Visit Diagnoses Diagnosis Allergic rhinitis due to pollen Allergic rhinitis, cause unspecified documented in this encounter Care Teams Multiple Sclerosis Nurse Relationship Specialty Start Date End Date Michelle Silveira PA PCP - General 05/09/10 08/04/15 documented as of this encounter
--- OUTSIDE RECORDS SUMMARY | 2024-02-27 12:45 | XMS_ITS | Encounter Summary ---
Author Organization [facility] Address [facility] [place] [address] Care Team Providers Care Winch Truck Operator Name Role Phone Raoul Michelle YADIRA Primary Care Provider [phone] Reason for Visit * Reason Comments Immunotherapy Encounter Details Date Type Department Care Team ([facility] st Contact Info) Description 10/21/2014 10:00 AM EDT Office Visit Allergy at [facility] [place] [address] ALLERGY, INJECTION Allergic rhinitis due to pollen; [...] Progress Notes * Marley Bustos LPN - 10/21/2014 3:42 PM EDT Documentation of screening pre-immunotherapy [...] A Dilution: Green Dose: 0.4 ml Site: LUE Sub Q Rxn: 20 mm flare Extract: Mix B Dilution: Green Dose: 0.4 ml Site: RUE Sub Q (U) Rxn: 20 mm flare Extract: Mix C Dilution: Green Dose: 0.4 ml Site: RUE [...] AM EDT Office Visit Hematology/Oncology at [address] [phone] El Bernardo MD [facility] [place] [address] [address] [place] [address] 04/21/2024 8:00 AM EST Appointment Mammography[place] [address] Linda Tamayo [address] HEMATOLOGY AND ONCOLOGY [place], [place] [phone] documented as of this encounter Visit Diagnoses Diagnosis Allergic rhinitis due to pollen Allergic rhinitis, cause unspecified documented in this encounter Care Teams Winch Truck Operator Relationship Specialty Start Date End Date Michelle Silveira PA PCP - General 05/09/10 08/04/15 documented as of this encounter
--- OUTSIDE RECORDS SUMMARY | 2024-02-27 12:45 | XMS_ITS | Encounter Summary ---
Author Organization [facility] [place] [address] Care Team Providers Care Clerk Analyst Name Role Phone Raoul Michelle YADIRA Primary Care Provider [phone] Reason for Visit * Reason Comments Immunotherapy Encounter Details Date Type Department Care Team ([facility] Contact Info) Description 03/09/2015 11:15 AM EDT Office Visit Allergy at [facility] [place] [address] ALLERGY, INJECTION Allergic rhinitis due to pollen; [...] Progress Notes * Ankita Guzmán LPN - 03/10/2015 2:10 PM EDT Pt called today at 12:26pm c/o her right arm blowing up huge from her grass injection. Pt reports that she took all meds as directed by Dr Warren.Also reports that she took benadryl and zyrtec too. Message given to nurse who did her injections on 03/09/2015 to call and f/u with patient. This message is also being forwarded to Dr Warren. * Marley Bustos LPN - 03/09/2015 11:28 AM EDT Documentation of screening pre-immunotherapy questionnaire [...] receiving your last injection? Yes. See notes from Dr. Warren and Angie Guzmán LPN 5. Are you on any new medications? [...] none Extract: Mix C Dilution: blue Dose: 0.15 ml Site: RUE Sub Q (L) Rxn: 10 mm flare Pt was observed here in the waiting area for 30 minutes. No adverse side effects noted. Pt ambulated from clinic in stable condition. documented in this encounter Plan of Treatment Upcoming Encounters Date Type Department Care Team (Late st Contact Info) Description 03/27/2024 11:00 AM EDT Office Visit Hematology/Oncology at [address] [phone] El Bernardo MD [facility] [place] [address] Linda Tamayo APRN [address] [place] [address] DR HEMATOLOGY [place] [address] 04/21/2024 8:00 AM EST Appointment Mammography/[place] [address] [address] HEMATOLOGY AND ONCOLOGY [place], [place] [address] documented as of this encounter Procedures Procedure Name Priority Date/Time Associated Diagnosis Comments ALLERGY SCAN 07/05/2015 12:00 AM EST documented in this encounter Results * SCAN DOC: ALLERGY (07/05/2015 12:00 AM EST) Scanning Provider MEDIA MGR SCAN EXT O RDR/RSLT documented in this encounter Visit Diagnoses Diagnosis Allergic rhinitis due to pollen Allergic rhinitis, cause unspecified documented in this encounter Care Teams Clerk Analyst Relationship Specialty Start Date End Date Michelle Silveira PA PCP - General 05/09/10 08/04/15 documented as of this encounter
--- OUTSIDE RECORDS SUMMARY | 2024-02-27 12:45 | XMS_ITS | Encounter Summary ---
Author Organization [facility] Address [facility] [place] [address] Care Team Providers Care Digital Marketer Name Role Phone RaoulMichelle YADIRA Primary Care Provider [phone] Reason for Visit * Reason Comments Allergies Encounter Details Date Type Department Care Team ([facility] Contact Info) Description 11/17/2014 10:45 AM EDT [place] [address] Queenie Warren MD [facility] DR [place] [address] Allergic rhinoconjunctivitis, bilateral; Desensitization to allergens; Environmental allergies Discharge Disposition: Home Social History Tobacco Use [...] Reading Time Taken Comments Blood Pressure 118/80 11/17/2014 10:48 AM EDT Pulse 79 11/17/2014 10:48 AM EDT Temperature - - Respiratory Rate - - Oxygen Saturation - - Inhaled Oxygen Concentration - - Weight 84.4 kg (186 lb) 11/17/2014 10:48 AM EDT Height 167.6 cm (5' 6) 11/17/2014 10:48 AM EDT Body Mass Index 30.02 11/17/2014 10:48 AM EDT documented in this encounter Patient Instructions * Patient Instructions* Queenie Warren MD - 11/17/2014 11:35 AM EDT - Continue current regimen ALLERGY SEASONS & AVOIDANCE: Dust mites: Year-round, especially Fall 1. Dust mite encasings, pillow and mattress ( ie From [employer]; [employer], [employer], [employer], [employer] [place], [employer]) 2. Wash bedding in hot water (no hotter than 120 degrees F) weekly 3. Humidity control, 30-50% 4. Minimize carpet and stuffed animal exposure Molds: Year-round, especially Fall 1. Remove obvious mold 2. Minimize moisture / leaks 3. Humidity control, 30-50% Pollens: Grass: Late Spring; Trees: Early Spring; 1. Nightly hair washing during pollen seasons 2. Keep windows closed, consider window a/c unit with filter 3. Do not place fans in windows 4. Do not dry clothes outside. Allergy shot instructions 1. 30 MINUTE WAIT 2. EPIPEN AVAILABLE ON DAY OF ALLERGY SHOT 3. 24 HOUR NON-SEDATING ANTI-HISTAMINE ON DAY OF ALLERGY SHOT. Take at least 1 hour prior to receiving the allergy shot. 4. AVOID VIGOROUS EXERCISE ON DAY OF SHOT documented in this encounter Progress Notes * Queenie Warren MD - 11/17/2014 10:46 AM EDT Chief Complaint Patient presents with ??? Allergies HPI. Rebeca Hernández Is here today for a follow up visit. Last encounter in this section was on 11/11/2014 Allergic rhinoconjunctivitis Desensitization to allergens Ms. Hernández started AIT on 07/14/14. She is building her allergy shots. She received on 11/11/14: Extract: Mix A ( DP and DF mites) Dilution: Green Dose: 0.3 ml Extract: Mix B ( molds) Dilution: Green Dose: 0.3 ml Extract: Mix C ( grass pollens and maple tree pollen) Dilution: Green Dose: 0.3 ml She tolerates her AIT with LLR to Mix C ( grass and tree pollens). No systemic reactions. She has an Epipen that expires 09/2015. She takes fexofenadine 180mg prior to her allergy shot appt. She takes fexofenadine 180mg daily prn allergy symptoms. She takes it about eight times per week. She has mild nasal congestion and postnasal drip. No itchy eyes. Her allergy symptoms are typicallyworse in early December. She is not on any nasal sprays or eye drops. She has Patanol and Astelin at home to use if her allergies worsen. She tried nasonex in the past and stopped it because of headaches. No history of asthma. Not on beta dmitry. She has dust mite covers on her pillow and mattress. She installed air conditioner. She got a new mattress. She has rugs that she vacuums multiple [...] Outpatient Prescriptions Marked as Taking for the 11/17/14 encounter (Follow-Up) with Queenie Warren MD Medication Sig Dispense Refill ??? fexofenadine (JANINA) 180 mg Tablet Take 1 tablet by mouth daily as needed (Take 1 tab at least 1 hour prior to allergy shot appointment). 30 tablet 11 Past Medical and Social [...] ADNEXA performed by Carly Chamberlain MD at [facility] MAIN OR ??? Tonsillectomy ??? Adenoidectomy Family [...] cyanosis, or edema Skin: - No rashes - 20mm flare around Mix C injectin site. Neuro/Psych: - Nl and age appropriate mood and affect - Judgement and insight intact Impression Report Plan: #1 Allergic rhinoconjunctivitis - Continues to have mild symptoms on AIT, Janina, Patanol and Astelin - It is too soon to know if AIT will help control her symptoms. She is still building to her maintenance dose. - Continue Janina 180mg daily and prior to AIT administration - Continue Astelin and Patanol during allergy symptom flare #2 Desensitization to allergens, on AIT - Patient tolerating AIT. She would like to continue it. - Continue AIT per protocol - Reviewed allergy shot instructions- epinephrine autoinjector, wait time, antihistamine, exercise avoidance #3 Environmental allergies - Reviewed environmental control and avoidance measures RTC in 6 months eDH record was reviewed. Written instructions were [...] AM EDT Office Visit Hematology/Oncology at [address] [phone] El Bernardo MD [facility] [place] [address] HEMATOLOGY AND ONCOLOGY [place], [place] [address] 04/21/2024 8:00 AM EST Appointment Mammography/[place] [address] [address] HEMATOLOGY AND ONCOLOGY [place], [place] [address] documented as of this encounter Visit Diagnoses Diagnosis Allergic rhinoconjunctivitis, bilateral Desensitization to allergens Need for desensitization to allergens Environmental allergies Allergic rhinitis, cause unspecified documented in this encounter Care Teams Digital Marketer Relationship Specialty Start Date End Date Michelle Silveira PA PCP - General 05/09/10 08/04/15 documented as of this encounter
--- OUTSIDE RECORDS SUMMARY | 2024-02-27 12:45 | XMS_ITS | Encounter Summary ---
Author Organization [facility] Address [facility] [address] Care Team Providers Care Continuing Education Dean Name Role Phone Raoul Michelle YADIRA Primary Care Provider [phone] Reason for Visit * Reason Comments Immunotherapy Encounter Details Date Type Department Care Team ([facility] st Contact Info) Description 12/29/2014 3:30 PM EDT Office Visit Allergy at [facility] [place] [address] ALLERGY, INJECTION Allergic rhinitis due to pollen; [...] Progress Notes * Ankita Guzmán LPN - 12/29/2014 3:21 PM EDT Documentation of screening pre-immunotherapy questionnaire [...] of receiving your last injection ? yes, itching and swelling at injection site of the grass injection. Swelled up to the size of the palm of her hand. See Dr Warren's note attached to 12/16/2014 injection visit note. 5. Are you on any new medications [...] Extract: Mix A (mites) Dilution: blue Dose: 0.3ml Site: LUE Sub Q Rxn: none Extract: Mix B (mold) Dilution: blue Dose: 0.3ml Site: RUE Sub Q Rxn: none Extract: Mix C Dilution: blue Dose: 0.05ml Site: RUE Sub Q (L) Rxn: none Pt was observed here in the waiting area for 30 minutes. Pt ambulated from clinic in stable condition. documented in this encounter Plan of Treatment Upcoming Encounters Date Type Department Care Team (Late st Contact Info) Description 03/27/2024 11:00 AM EDT Office Visit Hematology/Oncology at [address] [phone] El Bernardo MD [facility] [place] [address] Linda Tamayo [address] HEMATOLOGY AND ONCOLOGY [place], [place] [address] 04/21/2024 8:00 AM EST Appointment Mammography/[place] [address] Linda Tamayo [address] HEMATOLOGY AND ONCOLOGY [place], [place] [address] documented as of this encounter Visit Diagnoses Diagnosis Allergic rhinitis due to pollen Allergic rhinitis, cause unspecified documented in this encounter Care Teams Continuing Education Dean Relationship Specialty Start Date End Date Michelle Silveira PA PCP - General 05/09/10 08/04/15 documented as of this encounter
--- OUTSIDE RECORDS SUMMARY | 2024-02-27 12:45 | XMS_ITS | Encounter Summary ---
Author Organization Formerly [facility] Address [facility] [place] [address] Care Team Providers Care Stock Mover Name Role Phone Raoul Michelle MAY Primary Care Provider [phone] Reason for Visit * Reason Comments Breast Cancer Follow-up Encounter Details Date Type Department Care Team (Late st Contact Info) Description 07/23/2014 3:00 PM EST Follow-Up Hematology Oncology at [address] [phone] El Bernardo MD [facility] [place] [address] Breast cancer, left breast; BRCA gene positive; Genetic susceptibility to breast cancer Discharge Disposition: Home Social History [...] Sign Reading Time Taken Comments Blood Pressure 105/64 07/23/2014 2:51 PM EST Pulse 90 07/23/2014 2:51 PM EST Temperature 36.5 ??C (97.7 ??F) 07/23/2014 2:51 PM ES T Respiratory Rate 16 07/23/2014 2:51 PM EST Oxygen Saturation 96% 07/23/2014 2:51 PM EST Inhaled Oxygen Concentration - - Weight 87.1 kg (192 lb) 07/23/2014 2:51 PM EST Height 167.6 cm (5' 5.98) 07/23/2014 2:51 PM ES T Body Mass Index 31 07/23/2014 2:51 PM EST documented in this encounter Progress Notes * El Bernardo MD - 07/23/2014 2:52 PM EST Subjective: Patient ID: Rebeca Hernández is a 53 y.o. female. Problem List: 1. Cancer of [...] with heterologous chondroid differentiation Tumor Grade: High Yatuam-Qgrye-Xyjoimodiw Score: 9 Tubular Differentiation: 3 Mitotic Rate: [...] carcinoma: 4 Estrogen/Progestin receptors: ER immunoreactivity: Negative DE immunoreactivity: Negative HER2/yeyo expression by FISH: NEGATIVE FOR HER2/YEYO AMPLIFICATION H. s/p adjuvant chemotherapy (AC). Completed 6 cycles 07/25/05. I. Adjuvant radiation therapy, completed 12/07/05. J. 06/29/13: Bilateral mammogram - CONCLUSION: This is a NEGATIVE mammogram (ACR Category 1). Routine screening mammography is recommended with the frequency dependent upon the patients age and breast cancer risk factors. Breast MRI: SUMMARY: LEFT BREAST: BENIGN FINDING (BIRADS Category 2). Post-treatment/biopsy change only. RIGHT BREAST: NEGATIVE (BIRADS Category 1). No suspicious enhancement to suggest breast cancer. 12/28 - had right breast mammogram and US done due to pain in the breast - negative. 2. BRCA 1 mutation Family hx: One [...] same BRCA1 alteration found in her mother ([id number]). Prophylactic BSO 04/2013. Path - Right and left fallopian tubes and ovaries (bilateral salpingo-oophorectomy): No evidence of malignancy. 3. FISH WARDEN History: The patient is G4, P3 with [...] today, she is feeling fairly well. She doesn't have any particular complaints. The right [...] areas of pain. Review of Systems Constitutional: Negative for fever, chills, activity change, appetite change, fatigue and unexpected weight change. Eyes: Negative. Respiratory: Negative. Cardiovascular: Negative. Gastrointestinal: Negative. Genitourinary: Negative. Musculoskeletal: Negative. Skin: Negative. Neurological: Positive for headaches. Psychiatric/Behavioral: Negative. Objective: Physical Exam Constitutional: She [...] healed incision in upper portion of left breast with some tenderness to palpation(no change). Some mild thickening of the skin on the left and no masses in either breast. Nipples flat, no discharge. Musculoskeletal: Normal range of motion. She exhibits [...] Assessment and Plan: Ms. Hernández is a 53 yo female with a h/o left breast cancer as above. 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 It was hormone receptor and her-2/yeyo negative. She received adjuvant chemotherapy with AC and radiation and completed all therapy in 11/20. Clinically, she seems to be doing well from this perspective. She has not had the mammogram or MRI done yet this year. I will order the mammogram and call her after that is done. She does not want todo the MRI but may be willing to do this next year. As noted, she is positive for BRCA-1 mutation. She is s/p prophylactic oophorectomy. We talked about testing for her daughter who I believe is 20. documented in this encounter Plan of Treatment Upcoming Encounters Date Type Department Care Team (Late st Contact Info) Description 03/27/2024 11:00 AM EDT Office Visit Hematology/Oncology at [address] [phone] El Bernardo MD [facility] [place] [address] Linda Tamayo, [address] [place] [address] 04/21/2024 8:00 AM EST Appointment Mammography/[place] [address] HEMATOLOGY AND ONCOLOGY [place], [place] [id number] documented as of this encounter Visit Diagnoses Diagnosis Breast cancer, left breast Malignant neoplasm of breast (female), unspecified site BRCA gene positive 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
--- OUTSIDE RECORDS SUMMARY | 2024-02-27 12:45 | XMS_ITS | Encounter Summary ---
Author Organization [facility] Address [facility] [place] [address] Care Team Providers Care Sponge Clipper Name Role Phone Michelle Silveira YADIRA Primary Care Provider [phone] Reason for Visit * Reason Comments Medication Refill Encounter Details Date Type Department Care Team (Late Contact Info) Description 12/01/2014 [place] [phone] Queenie Warren MD [facility] DR ALLERGY [place] [address] Social History Tobacco Use Types Packs/Day Years [...] Upcoming Encounters Date Type Department Care Team ([facility] Contact Info) Description 03/27/2024 11:00 AM EDT Office Visit Hematology/Oncology at [address] [phone] El Bernardo MD [facility] [place] [address] Linda Tamayo APRN [address] [place] [address] DR HEMATOLOGY [place] [address] 04/21/2024 8:00 AM EST Appointment Mammography/[place] [address] Linda Tamayo, [address] HEMATOLOGY [place] [address] documented as of this encounter Visit Diagnoses Not on filedocumented in this encounter Care Teams Sponge Clipper Relationship Specialty Start Date End Date Michelle Silveira PA PCP - General 05/09/10 08/04/15 documented as of this encounter
--- OUTSIDE RECORDS SUMMARY | 2024-02-27 12:45 | XMS_ITS | Encounter Summary ---
Author Organization [facility] [place] [address] Care Team Providers Care Microfiche Camera Operator Name Role Phone RaoulMichelle YADIRA Primary Care Provider [phone] Reason for Visit * Reason Comments Follow-up Allergies Encounter Details Date Type Department Care Team ([facility] Contact Info) Description 06/16/2014 11:15 AM EST [place] [address] Queenie Warren MD [facility] DR ALLERGY [place] [address] Chronic allergic rhinitis; Dyspnea; Environmental allergies Discharge Disposition: Home Social History [...] Sign Reading Time Taken Comments Blood Pressure 122/80 06/16/2014 11:04 AM EST Pulse 72 06/16/2014 11:04 AM EST Temperature - - Respiratory Rate - - Oxygen Saturation - - Inhaled Oxygen Concentration - - Weight 83.9 kg (185 lb) 06/16/2014 11:04 AM EST Height 167.6 cm (5' 6) 06/16/2014 11:04 AM EST Body Mass Index 29.86 06/16/2014 11:04 AM EST documented in this encounter Patient Instructions * Patient Instructions* Queenie Warren MD - 06/16/2014 12:31 PM EST ALLERGY SEASONS & AVOIDANCE: Dust mites: Year-round, especially Fall 1. Dust mite encasings, pillow and mattress ( ie From [employer] in [place].[employer]; [employer], [employer], [employer], [employer], [employer]) 2. Wash bedding in hot water (no [...] Progress Notes * Queenie Warren MD - 06/22/2014 9:06 PM ESTQuick Note: Test results reviewed. Allergy antibody levels to cat and dog were unremarkable. Since the skin tests and the serum allergy tests were unremarkable, cat and dog will not be included her allergy immunotherapy serum. Please notify patient that cat and dog will not be included in her allergy immunotherapy. Thanks. * Queenie Warren MD - 06/16/2014 11:50 AM EST Chief Complaint Patient presents with ??? Follow-up ??? Allergies HPI. Rebeca Capri Hernández Is here today for a follow up visit. Last encounter in this section was on 04/28/2014 Patient Active Problem List Diagnosis ??? Environmental allergies ??? Conjunctivitis, allergic ??? Chronic allergic rhinitis ??? Nevus ??? BRCA1 positive ??? Breast cancer Overview Note: A. S/P partial L mastectomy 2004 B. Treated with cytoxan and doxorubicin and radiation therapy. C. BRAC1 pos- bilat oophorectomy in 04/2013 prophylactically ??? Depression ??? Chest pain Overview Note: A. Stress test [facility] 06/28: exercised to 10.1 METs [...] TKR (total knee replacement) Overview Note: Left Chronic allergic rhinitis Environmental allergies She has daily nasal congestion, rhinorrhea and post nasal drip. She takes fexofenadine daily prn allergy symptoms. She last took it a couple of weeks ago. She takes Astelin 2 sprays BID, Patanol and Nasonex 2 sprays once daily during the summer. She is not sure if this regimen helps control her symptoms. Avoidance of environmental allergens helps control her symptoms. Dust exposure triggers her nasal symptoms as well. The dog does not sleep in her room, but sheds a lot. She has a history of developing facial swelling while hiking during the summer.Hay and grass exposure cause difficulty breathing and facial swelling. She has an EpiPen. Dyspnea Her dyspnea has improved. No dyspnea with exertion. No nighttime awakenings because o fdiffiuclty breathing. Her PFT on 04/28/2014 showed normal spirometry and TLC and RV were reduced. She has a history of scoliosis. Review of Systems: All other systems reviewed and negative, except as noted below. Review of Systems HENT: Positive for congestion. Rhinorrhea, post nasal drip All other systems reviewed and are negative. Allergies, medications, past medical/ surgical history were reviewed and updated in eD. Allergies: Tramadol; Carvedilol; Iodine; Morphine; Codeine phosphate; Penicillins; Unknown; and Vicodin Medications: Outpatient Prescriptions Marked as Taking for the 06/16/14 encounter (Follow-Up) with Georges Warren MD Medication Sig Dispense Refill ??? Cholecalciferol, Vitamin D3, (VITAMIN D-3) 2,000 unit Capsule Take by mouth. ??? estradiol (VAGIFEM) [address] 1 tablet vaginally twice a week. 8 tablet 10 No Facility-Administered Medications for the 06/16/14 encounter (Follow-Up) with Queenie Warren MD. Past [...] performed by Carly Chamberlain MD at [facility] MAIN OR ??? Tonsillectomy ??? Adenoidectomy [...] Judgement and insight intact Tests or Procedures: 06-16-14 Allergy skin prick tests # tests: 41 Interpretation: Appropriate histamine, saline and glycerine controls. Positive tests to: Dust mites/ Animals/ Other: DF dust mite, DP dust mite Grass pollens: [place] blue, orchard, Arnol grass; Tree pollens: maple Mold spores:Stemphyllium Solani, A. fumigatus Negative tests to: Dust mites/ Animals/ Other: cat, dog,horse, cockroach; Grass pollens: Sami; Tree pollens: [place]ee, elina, birch, black walnut, eastern red cedar, elm, hickory, oak, pine, poplar, eastern sycamore; [place] pollens: cocklebur, mugwort, pigweed, giant ragweed, sheep sorrel; Mold spores: Aspergillus mix, Alternaria, Penicillium, Cladosporium, Helminthosporium, Curvularia, Epicoccum, Fusarium, Mucor Impression Report Plan: #1 Allergic rhinoconjunctivitis -- Reviewed skin test results with the patient. Allergies to aeroallergens identified. - No history of asthma. No evidence of obstruction on spirometry in 04/30. Not on beta dmitry. -- She has tried medical therapy without any significant relief in her symptoms. She would like to restart AIT, which she feels helped her in the pst. --I discussed with patient risks, benefits, indications and alternatives to allergen immunotherapy.The risks include but are not limited to large local reactions, hives, swelling, respiratory distress, and life-threatening anaphylaxis. She will need to have her EpiPen at all times when receiving the shots. She will need to take antihistamine 2 hrs prior to receiving the shot. She will need to avoid exercise 2 hrs after receiving immunotherapy --I reviewed with her the schedule for allergy shot immunotherapy. She was advised that she will need to stay in clinic 30 min after the shot for observation. I also reviewed with her usp risksand benefits and success rates of immunotherapy. --I reviewed the consent form with the patient. She signed it during today's visit. -- Will check IgE levels to cat and dog since they were negative on today's skin test but were included in her AIT in the past. If IgE levels are elevated, will include them in her AIT. --EpiPen be administered if she develops dyspnea, throat swelling or loss of consciousness. If EpiPen is administered 911 should be called immediately. The risks, benefits, alternatives, storage methods, indications and administration technique of EpiPen were reviewed with the patient. She was ableto demonstrate understanding of the use of EpiPen. - Continue Neva, Nasonex and Astelin #2 Dyspnea - Reviewed spirometry results. - Improved dyspnea. No further workup at current time. If symptoms recur, would consider pulmonary referral. #3 Environmental allergies - Reviewed environmental control and avoidance measures Orders Placed This Encounter Procedures ??? Cat Epithelium IgE ??? Dog Epithelium IgE ??? Allergy Skin Test Medication ordered or changed during this encounter, will not show discontinued medications Medications ??? EPINEPHrine (EPIPEN) 0.3 mg/0.3 mL (1:1,000) Auto-Injector Sig: Inject 0.3 mLs into the muscle once as needed (difficulty breathing, throat swelling, loss of consciousness) for up to 1 dose. Call 911. Dispense: 2 each Refill: 1 ??? fexofenadine (NEVA) 180 mg Tablet Sig: Take 1 tablet by mouth daily as needed (Take 1 tab at least 1 hour prior to allergy shot appointment). Dispense: 30 tablet Refill: 11 RTC in 5 months eDH record was reviewed. Written instructions [...] 11:00 AM EDT Office Visit Hematology/Oncology at [address] [phone] El Bernardo MD [facility] [place] [address] Linda Tamayo, [address] HEMATOLOGY AND ONCOLOGY [place], [place] [id number] 04/21/2024 8:00 AM EST Appointment Mammography/[place] [address] Linda Tamayo, [address] HEMATOLOGY AND ONCOLOGY [place], [place] [id number] documented as of this encounter Procedures Procedure Name Priority Date/Time Associated Diagnosis Comments ALLERGY SCAN 10/19/2014 12:00 AM EDT DOG EPITHELIUM IGE Routine 06/16/2014 1: 13 PM EST Chronic allergic rhinitis CAT EPITHELIUM IGE Routine 06/16/2014 1: 13 PM EST Chronic allergic rhinitis documented in this encounter Results * SCAN DOC: ALLERGY (10/19/2014 12:00 AM EDT) Scanning Provider MEDIA MGR SCAN EXT O RDR/RSLT * Dog Epithelium IgE (06/16/2014 1:13 PM EST) Dog Epithel, IgE <0.35 kU/L [facility] Comment: Reference Ranges <0.35 kU/L Class 0: ??Normal 0.35-0.69 kU/L Class 1: ??Low level of allergy, indicative of ongoing sensitization 0.70-3.49 kU/L Class 2: ??Moderate level of allergy, indicative of stronger ongoing sensitization 3.50-17.49 kU/L Class 3: ??High level of allergy, indicative of high level sensitization 17.5-49.9 kU/L Class 4: Very high level of allergy, indicative of very high level sensitization 50.0-100 kU/L Class 5: Very high level of allergy, indicative of very high level sensitization >100 kU/L Class 6: Very high level of allergy, indicative of very high level sensitization Blood specimen (specimen) 06/16/2014 1:13 PM EST 06/18/2014 8:01 AM EST Narrative Resulting Agency Comment Spec In Lab Queenie Warren MD IMMUNOLOGY ORDERABLE S [facility] * Cat Epithelium IgE (06/16/2014 1:13 PM EST) Cat Epithel, IgE <0.35 kU/L [facility] Comment: Reference Ranges <0.35 kU/L Class 0: ??Normal 0.35-0.69 kU/L Class 1: ??Low level of allergy, indicative of ongoing sensitization 0.70-3.49 kU/L Class 2: ??Moderate level of allergy, indicative of stronger ongoing sensitization 3.50-17.49 kU/L Class 3: ??High level of allergy, indicative of high level sensitization 17.5-49.9 kU/L Class 4: Very high level of allergy, indicative of very high level sensitization 50.0-100 kU/L Class 5: Very high level of allergy, indicative of very high level sensitization >100 kU/L Class 6: Very high level of allergy, indicative of very high level sensitization Blood specimen (specimen) 06/16/2014 1:13 PM EST 06/18/2014 8:01 AM EST Narrative Resulting Agency Comment Spec In Lab Queenie Warren MD IMMUNOLOGY ORDERABLE S KANDY FRANCIS documented in this encounter Visit Diagnoses Diagnosis Chronic allergic rhinitis Allergic rhinitis, cause unspecified Dyspnea Other dyspnea and respiratory abnormality Environmental allergies Allergic rhinitis, cause unspecified documented in this encounter Care Teams Microfiche Camera Operator Relationship Specialty Start Date End Date Michelle Silveira PA PCP - General 05/09/10 08/04/15 documented as of this encounter
--- OUTSIDE RECORDS SUMMARY | 2024-02-27 12:45 | XMS_ITS | Encounter Summary ---
Author Organization [facility] Address [facility] [place] [address] Care Team Providers Care Power And Recovery Shift Engineer Name Role Phone RaoulMichelle YADIRA Primary Care Provider [phone] Reason for Visit * Reason Comments Immunotherapy Encounter Details Date Type Department Care Team ([facility] Contact Info) Description 12/16/2014 10:30 AM EDT Office Visit Allergy at [facility] [place] [address] ALLERGY, INJECTION Allergic rhinitis due to pollen; [...] Progress Notes * Queenie Warren MD - 12/23/2014 8:50 AM EDT Reviewed shot record. Patient did not have any reactions at Blue vial 0.05cc. If the patient wishes to stop the allergy shots, she may do so. Alternatively, her weekly allergy schedule can be changed to: BLUE: 0.05cc 0.10cc 0.15cc 0.15cc ( duplicate) 0.20cc 0.25cc 0.30cc 0.35cc 0.40cc Then continue per protocol to the Yellow vial as tolerated. Message sent to allergy nursing staff. * Ankita Guzmán LPN - 12/22/2014 9:50 AM EDT Pt called on 12/22/2014 @ 8:03am reporting that she had a HUGE reaction to where she received her grass injection on 12/16/2014. She wanted to know if she should stop her injections ? Called her back. Reports that right arm swelled up to size of her palm for 3-4 days swollen. Red and hot to touch. Pt continued to take her antihistamine on a daily basis. Report no difficulty breathing. Pt is not getting her injections this week. * Ankita Guzmán LPN - 12/16/2014 12:01 PM EDT Documentation of screening pre-immunotherapy questionnaire [...] Extract: Mix A (mites) Dilution: Blue Dose: 0.2 ml Site: LUE Sub Q Rxn: None Extract: Mix B (mold) Dilution: Blue Dose: 0.2 ml Site: LUE Sub Q (U) Rxn: None Extract: Mix C (pollen) Dilution: Blue Dose: 0.2 ml Site: LUE Sub Q (L) Rxn: None Pt was observed here in the waiting area for 30 minutes. No adverse side effects were noted. Pt ambulated from clinic in stable condition. documented in this encounter Miscellaneous Notes * Addendum Note - Ankita Guzmán LPN - 12/22/2014 10:02 AM EDTAddended by: ANKITA GUZMÁN on: 12/22/2014 10:02 AM Modules accepted: Level of Service documented in this encounter Plan of Treatment Upcoming Encounters Date Type Department Care Team (Late st Contact Info) Description 03/27/2024 11:00 AM EDT Office Visit Hematology/Oncology at [address] [phone] El Bernardo MD [facility] [place] [address] [address] [place] [address] 04/21/2024 8:00 AM EST Appointment Mammography/[place] [address] [address] HEMATOLOGY AND ONCOLOGY [place], [place] [address] documented as of this encounter Visit Diagnoses Diagnosis Allergic rhinitis due to pollen Allergic rhinitis, cause unspecified documented in this encounter Care Teams Power And Recovery Shift Engineer Relationship Specialty Start Date End Date Michelle Silveira PA PCP - General 05/09/10 08/04/15 documented as of this encounter
--- OUTSIDE RECORDS SUMMARY | 2024-02-27 12:45 | XMS_ITS | Encounter Summary ---
Author Organization [facility] Address [facility] [place] [address] Care Team Providers Care Adolescent Specialist Name Role Phone RaoulMichelle YADIRA Primary Care Provider [phone] Reason for Visit * Reason Comments Follow-up Immunotherapy Encounter Details Date Type Department Care Team (Latest Contact Info) Description 03/04/2015 10:45 AM EDT Follow-Up Allergy at [facility] [place] [address] [facility] DR ALLERGY [place] [address] Allergic rhinoconjunctivitis of both eyes; Desensitization to allergens; Environmental allergies Discharge Disposition: [...] Sign Reading Time Taken Comments Blood Pressure 112/69 03/04/2015 11:14 AM EDT Pulse 78 03/04/2015 11:14 AM EDT Temperature - - Respiratory Rate 19 03/04/2015 11:14 AM EDT Oxygen Saturation - - Inhaled Oxygen Concentration - - Weight 85.7 kg (189 lb) 03/04/2015 11:14 AM EDT Height 165.1 cm (5' 5) 03/04/2015 11:14 AM EDT Body Mass Index 31.45 03/04/2015 11:14 AM EDT documented in this encounter Patient Instructions * Patient Instructions* Queenie Warren MD - 03/04/2015 11:51 AM EDT - Take montelukast ( Singulair) 10mg 1 tab the night prior and night of receiving the allergy shots - Take fexofenadine ( Janina) 180mg 1 tab the night prior, morning of and night of receiving the allergy shots. - Continue fexofenadine 180mg 1 tab daily as needed for allergies. - Always bring EpiPen to shot appts and have it available for the next 24 hours after receiving theshots. - 30 minute wait per protocol, after the shots - Avoid exercise for at least four hours after receiving your allergy shots documented in this encounter Progress Notes * Queenie Warren MD - 03/04/2015 11:23 AM EDT Chief Complaint Patient presents with ??? Follow-up ??? Immunotherapy HPI. Rebeca Hernández Is here today for a follow up visit. Last encounter in this section was on 11/11/2014 Allergic rhinoconjunctivitis Desensitization to allergens Ms. Hernández started AIT on 07/14/14. She is building her allergy shots. She received on 02/23/15: Extract: Mix A (F&P Mite) Dilution: yellow Dose: 0.1ml Site: RUE USB Q Rxn: none Extract: Mix B (stemphyllium solani,aspergillus fumigatus) Dilution: yellow Dose: 0.1ml Site: LUE SUB Q (U) Rxn: none Extract: Mix C (k[place] blue,orchard grass,maple tree) Dilution: blue Dose: 0.35ml Site: LUE SUB Q (L) Rxn: nonel After receiving her shot on 02/23/15: She received her shots. On her way to her car, she felt she was SOB. No wheezing or chest tightness. No rash. She took Benadryl with some improvement in the SOB. She did not feel she needed her EpiPen. The SOB lasted for a couple of hours. She felt better the next day, except for local itchiness atthe site she received her grass and tree pollen shot ( Mix C). She takes fexofenadine 180mg prior to her allergy shot appt. She takes fexofenadine 180mg daily prn allergy symptoms. She takes Janina almost daily during the summer and fall. She feels that her shots are helping to improve her allergy symptoms of nasal congestion and difficulty breathing. She has bilateral sinus pressure and post nasal drip on Janina. No itchy eyes She has tried loratadine in the past, [...] Morphine; Codeine phosphate; Penicillins; and Vicodin Medications: No outpatient prescriptions have been marked as taking for the 03/04/15 encounter (Follow-Up) with Queenie Warren MD. Past [...] INJECTION / LEFT Procedure Date: 02/26/2005 ??? Gianna, rmv adnexal structure 04/21/2013 LAPAROSCOPY, REMOVAL OF ADNEXA performed by Carly Chamberlain MD at [facility] MAIN OR ??? Tonsillectomy ??? Adenoidectomy [...] Activity: Not Currently Other Topics Concern ??? Not on file Social History Narrative Physical Exam: Vital signs [...] on AIT, Janina, Patanol and Astelin - Patient feels AIT is helping her symptoms and would like to continue AIT despite recent reactionsto the shots. - Continue Janina 180mg daily - Continue Astelin and Patanol during allergy symptom flare - AIT instructions below.Please note changes to the shot dose/schedule. #2 Desensitization to allergens, on AIT - Patient had systemic symptoms following her last AIT. She has LLR to all three shots, but largestwith the Mix C. - Reviewed allergy shot instructions- epinephrine autoinjector, wait time, antihistamine, exercise avoidance - Take Singulair 10mg the night prior and night of receiving allergy shots - Take Janina 180mg the night prior, morning of and night of receiving allergy shots. - Change in allergy shot schedule: Mix A ( mites) and Mix B ( molds) - Decrease to Yellow vial 0.05cc and continue weekly shots at this dose until Apr 17. After , increase dose as tolerated per allergy section protocol. Mix C ( pollens) - Decrease to Blue vial 0.15cc and continue weekly shots at this dose until Apr 17. After Apr 17, increase dose as tolerated per protocol from my note dated 12-16-14. #3 Environmental allergies - Continue environmental control and avoidance measures RTC in 3 months Medication ordered or changed during this encounter, will not show discontinued medications Medications ??? montelukast (SINGULAIR) 10 mg Tablet Sig: Take 1 tab the night prior and night of receiving the allergy shots Dispense: 20 tablet Refill: 11 ??? fexofenadine (JANINA) 180 mg Tablet Si tab daily prn allergies.Take 1 tab twice daily the day prior and day of receiving allergy shots. Dispense: 30 tablet Refill: 11 Patient has tried loratadine but had no relief of her rhinitis. She has also tried cetirizine but stopped it because of sedative effect. eDH record was reviewed. Written instructions were [...] AM EDT Office Visit Hematology/Oncology at [address] [phone] [facility] [place] [address] Linda Tamayo APRN [address] [place] [address] DR [place]OLOGY [place] [address] 04/21/2024 8:00 AM EST Appointment Mammography/[place] [address] HEMATOLOGY AND ONCOLOGY [place], [place] [address] documented as of this encounter Procedures Procedure Name Priority Date/Time Associated Diagnosis Comments ALLERGY SCAN 07/05/2015 12:00 AM EST ALLERGY SCAN 03/08/2015 12:00 AM EDT ALLERGY SCAN 03/08/2015 12:00 AM EDT documented in this encounter Results * SCAN DOC: ALLERGY (07/05/2015 12:00 AM EST) Scanning Provider MEDIA MGR SCAN EXT O RDR/RSLT * SCAN DOC: ALLERGY (03/08/2015 12:00 AM EDT) Scanning Provider MEDIA MGR SCAN EXT O RDR/RSLT * SCAN DOC: ALLERGY (03/08/2015 12:00 AM EDT) Scanning Provider MEDIA MGR SCAN EXT O RDR/RSLT documented in this encounter Visit Diagnoses Diagnosis Allergic rhinoconjunctivitis of both eyes Desensitization to allergens Need for desensitization to allergens Environmental allergies Allergic rhinitis, cause unspecified documented in this encounter Care Teams Adolescent Specialist Relationship Specialty Start Date End Date Michelle Silveira PA PCP - General 05/09/10 08/04/15 documented as of this encounter
--- OUTSIDE RECORDS SUMMARY | 2024-02-27 12:45 | XMS_ITS | Encounter Summary ---
Author Organization [facility] Address [facility] [place] [address] Care Team Providers Care Drive In Waiter/Waitress Name Role Phone Raoul Michelle YADIRA Primary Care Provider [phone] Reason for Visit * Reason Comments Immunotherapy Encounter Details Date Type Department Care Team ([facility] st Contact Info) Description 01/26/2015 10:30 AM EDT Office Visit Allergy at [facility] [place] [address] ALLERGY, INJECTION Allergic rhinitis due to pollen; [...] Progress Notes * Marley Bustos LPN - 01/26/2015 2:14 PM EDT Documentation of screening pre-immunotherapy questionnaire [...] hours of receiving your last injection? Yes. More tired than usual. Would like to decrease back to blue vials on her shots. 5. Are you on any new medications? [...] (mold) Dilution: blue Dose: 0.4 ml Site: LUE Sub Q (U) Rxn: none Extract: Mix C Dilution: blue Dose: 0.25 ml Site: RUE Sub Q (L) Rxn: none Pt was observed here in the waiting area for 30 minutes. No adverse side effects noted. Pt ambulated from clinic in stable condition. documented in this encounter Plan of Treatment Upcoming Encounters Date Type Department Care Team (Late st Contact Info) Description 03/27/2024 11:00 AM EDT Office Visit Hematology/Oncology at [address] [phone] El Bernardo MD [facility] [place] [address] Linda Tamayo [address] HEMATOLOGY AND ONCOLOGY [place], [place] [address] 04/21/2024 8:00 AM EST Appointment Mammography/[place] [address] Linda Tamayo [address] HEMATOLOGY AND ONCOLOGY [place], [place] [address] documented as of this encounter Visit Diagnoses Diagnosis Allergic rhinitis due to pollen Allergic rhinitis, cause unspecified documented in this encounter Care Teams Drive In Waiter/Waitress Relationship Specialty Start Date End Date Michelle Silveira PA PCP - General 05/09/10 08/04/15 documented as of this encounter
--- OUTSIDE RECORDS SUMMARY | 2024-02-27 12:45 | XMS_ITS | Encounter Summary ---
Author Organization [facility] Address [facility] [place] [address] Care Team Providers Care Business Machines Teacher Name Role Phone Raoul Michelle YADIRA Primary Care Provider [phone] Reason for Visit * Reason Comments Immunotherapy Encounter Details Date Type Department Care Team ([facility] st Contact Info) Description 01/12/2015 11:15 AM EDT Office Visit Allergy at [facility] [place] [address] ALLERGY, INJECTION Allergic rhinitis due to pollen; [...] Progress Notes * Marley Bustos LPN - 01/12/2015 1:50 PM EDT Documentation of screening pre-immunotherapy questionnaire [...] AM EDT Office Visit Hematology/Oncology at [address] [phone] El Bernardo MD [facility] [place] [address] Linda Tamayo [address] HEMATOLOGY AND ONCOLOGY [place], [place] [address] 04/21/2024 8:00 AM EST Appointment Mammography/[place] [address]ayo [address] HEMATOLOGY AND ONCOLOGY [place], [place] [address] documented as of this encounter Visit Diagnoses Diagnosis Allergic rhinitis due to pollen Allergic rhinitis, cause unspecified documented in this encounter Care Teams Business Machines Teacher Relationship Specialty Start Date End Date Michelle Silveira PA PCP - General 05/09/10 08/04/15 documented as of this encounter
--- OUTSIDE RECORDS SUMMARY | 2024-02-27 12:45 | XMS_ITS | Encounter Summary ---
Author Organization [facility] Address [facility] [place] [address] Care Team Providers Care Engine Specialist Name Role Phone Raoul Michelle MAY Primary Care Provider [phone] Reason for Visit * Reason Comments Immunotherapy Encounter Details Date Type Department Care Team ([facility] st Contact Info) Description 11/24/2014 9:15 AM EDT Office Visit Allergy at [facility] [place] [address] ALLERGY, INJECTION Allergic rhinitis due to pollen; [...] Progress Notes * Marley Bustos LPN - 11/24/2014 10:16 AM EDT Documentation of screening pre-immunotherapy questionnaire [...] A Dilution: Blue Dose: 0.05 ml Site: LUE Sub Q Rxn: None Extract: Mix B Dilution: Blue Dose: 0.05 ml Site: RUE Sub Q (U) Rxn: None Extract: Mix C Dilution: Blue Dose: 0.05 ml Site: RUE Sub Q (L) Rxn: None Pt was observed here in the waiting area for 30 minutes. No adverse side effects were noted. Pt ambulated from clinic in stable condition. documented in this encounter Plan of Treatment Upcoming Encounters Date Type Department Care Team (Late st Contact Info) Description 03/27/2024 11:00 AM EDT Office Visit Hematology/Oncology at [address] [address] El Bernardo MD [facility] [place] [address] [address] HEMATOLOGY [place] [address] 04/21/2024 8:00 AM EST Appointment Mammography/[place] [address] Linda Tamayo [address] HEMATOLOGY AND ONCOLOGY [place], [place] [address] documented as of this encounter Visit Diagnoses Diagnosis Allergic rhinitis due to pollen Allergic rhinitis, cause unspecified documented in this encounter Care Teams Engine Specialist Relationship Specialty Start Date End Date Michelle Silveira PA PCP - General 05/09/10 08/04/15 documented as of this encounter
--- OUTSIDE RECORDS SUMMARY | 2024-02-27 12:45 | XMS_ITS | Encounter Summary ---
Author Organization [facility] Address [facility] [place] [address] Care Team Providers Care Mechanical Spreader Operator Name Role Phone Michelle Silveira YADIRA Primary Care Provider [phone] Reason for Visit * Reason Comments Other Encounter Details Date Type Department Care Team ([facility] st Contact Info) Description 07/08/2014 [place] [phone] Queenie Warren MD [facility] DR [place] [address] Social History Tobacco Use Types Packs/Day Years [...] encounter Miscellaneous Notes * Telephone Encounter - Marta Lr RN - 07/08/2014 3:21 PM EST Spoke w/Rebeca Edgar to inform her that IgE levels to cat & dog were negative therefore she will not have AIT to cat & dog. She was alos informed that her [place] arrived [place] [facility] & will be available for AIT as early as 07/14/2014. She expressed delight with this news & knows thatshe can call with any concerns. The call was then forwarded to scheduling care management coordinator for appt for AIT injections. * Telephone Encounter - Marta Lr RN - 07/08/2014 3:16 PM EST ----- Message from Queenie Warern MD sent at 06/22/2014 9:06 PM EST ----- Test results reviewed. Allergy antibody levels to cat and dog were unremarkable. Since the skin tests and the serum allergy tests were unremarkable, cat and dog will not be included her allergy immunotherapy serum. Please notify patient that cat and dog will not be included in her allergy immunotherapy. Thanks. documented in this encounter Plan of Treatment Upcoming Encounters Date Type Department Care Team (Late st Contact Info) Description 03/27/2024 11:00 AM EDT Office Visit Hematology/Oncology at [address] [phone] El Bernardo MD [facility] [place] [address] [address] HEMATOLOGY AND ONCOLOGY [place], [place] [address] 04/21/2024 8:00 AM EST Appointment Mammography/[place] [address] [address] HEMATOLOGY AND ONCOLOGY [place], [place] [address] documented as of this encounter Visit Diagnoses Not on filedocumented in this encounter Care Teams Mechanical Spreader Operator Relationship Specialty Start Date End Date Michelle Silveira PA PCP - General 05/09/10 08/04/15 documented as of this encounter
--- OUTSIDE RECORDS SUMMARY | 2024-02-27 12:45 | XMS_ITS | Encounter Summary ---
Author Organization [facility] Address [facility] [place] [address] Care Team Providers Care Bank Guard Name Role Phone Raoul Michelle YADIRA Primary Care Provider [phone] Reason for Visit * Reason Comments Immunotherapy Encounter Details Date Type Department Care Team ([facility] st Contact Info) Description 08/25/2014 11:15 AM EDT Office Visit Allergy at [facility] [place] [address] ALLERGY, INJECTION Allergic rhinitis due to pollen; [...] Progress Notes * Marley Bustos LPN - 08/25/2014 11:51 AM EDT Documentation of screening pre-immunotherapy questionnaire [...] Building Extract: Mix A Dilution: Green Dose: 0.05 ml Site: RUE Sub Q Rxn: None Extract: Mix B Dilution: Green Dose: 0.05 ml Site: LUE Sub Q (U) Rxn: None Extract: Mix C Dilution: Green Dose: 0.05 ml Site: LUE Sub Q (L) Rxn: None Pt was observed here in the waiting area for 30 minutes. No adverse side effects were noted. Pt ambulated from clinic in stable condition. documented in this encounter Plan of Treatment Upcoming Encounters Date Type Department Care Team (Late st Contact Info) Description 03/27/2024 11:00 AM EDT Office Visit Hematology/Oncology at [address] [address] El Bernardo MD [facility] [place] [address] [address] [place] [address] 04/21/2024 8:00 AM EST Appointment Mammography[place] [address] Linda Tamayo [address] HEMATOLOGY AND ONCOLOGY [place], [place] [address] documented as of this encounter Visit Diagnoses Diagnosis Allergic rhinitis due to pollen Allergic rhinitis, cause unspecified documented in this encounter Care Teams Bank Guard Relationship Specialty Start Date End Date Michelle Silveira PA PCP - General 05/09/10 08/04/15 documented as of this encounter
--- OUTSIDE RECORDS SUMMARY | 2024-02-27 12:45 | XMS_ITS | Encounter Summary ---
Author Organization [facility] [place] [address] Care Team Providers Care Properties Supervisor Name Role Phone Raoul Michelle YADIRA Primary Care Provider [phone] Reason for Visit * Reason Onset Date Comments Other 09/08/2014 concern that all ergy shots caused lump under left axilla Encounter Details Date Type Department Care Team (Late st Contact Info) Description 09/08/2014 Telephone [address] [address] Wendy Brady RN Other (concern that allergy shots caused lump under left axilla) Social History Tobacco Use Types Packs/Day Years [...] encounter Miscellaneous Notes * Telephone Encounter - Wendy Brady RN - 09/10/2014 12:47 PM EDT After review with Dr. Bernardo, phone call back to Rebeca and message left on her answering machine advising that given her history of lymph node dissection and radiation, if possible it would be bestto avoid getting anything potentially invasive in left arm. He does understand that this might not always be possible. Encouraged her to have her school guard contact Dr. Bernardo directly should he/she have any further specific questions for him. * Telephone Encounter - Wendy Brady RN - 09/08/2014 2:16 PM EDT Phone call from Rebeca reporting that she is getting allergy injections weekly [place] [facility]. She expresses concern that when she got injections last week she developed a sore lump under left axilla where my lymph nodes were removed. She states this developed 1-2 days after injections and lasted forabout 2 days. Denies any other symptoms. She states that due to this reaction she received a lesser dose of allergen in left arm today when she had injections. She states she was told in allergy clinic that they were unsure why this occurred, so Rebeca was wondering if Dr. Bernardo had any ideas about why this could have happened and wondered if it had anything to do with the fact that some of her lymph nodes were removed on that side due to her breast cancer. She states that her current school guard, whom is covering for Dr. Warren, had her sign release of information so that he could speak to Dr. Bernardo if need be. Message forwarded to Dr. Bernardo for his review. documented in this encounter Plan of Treatment Upcoming Encounters Date Type Department Care Team (Late st Contact Info) Description 03/27/2024 11:00 AM EDT Office Visit Hematology/Oncology at [address] [phone] El Bernardo MD [facility] [place] [address] [address] [place]ATOLOGY [place] [address] 04/21/2024 8:00 AM EST Appointment Mammography/[place] [address] Linda Tamayo [address] HEMATOLOGY AND ONCOLOGY [place], [place] [address] documented as of this encounter Visit Diagnoses Not on filedocumented in this encounter Care Teams Properties Supervisor Relationship Specialty Start Date End Date Michelle Silveira PA PCP - General 05/09/10 08/04/15 documented as of this encounter
--- OUTSIDE RECORDS SUMMARY | 2024-02-27 12:45 | XMS_ITS | Encounter Summary ---
Author Organization [facility] Address [facility] [place] [address] Care Team Providers Care Crusher Assembler Name Role Phone Raoul Michelle YADIRA Primary Care Provider [phone] Reason for Visit * Reason Comments Immunotherapy Encounter Details Date Type Department Care Team ([facility] st Contact Info) Description 10/13/2014 10:15 AM EDT Office Visit Allergy at [facility] [place] [address] ALLERGY, INJECTION Allergic rhinitis due to pollen; [...] Progress Notes * Marley Bustos LPN - 10/13/2014 4:48 PM EDT Documentation of screening pre-immunotherapy questionnaire [...] 0.3 ml Site: RUE Sub Q Rxn: 20 mm flare Extract: Mix B Dilution: Green Dose: 0.3 ml Site: LUE Sub Q (U) Rxn: 20 mm flare Extract: Mix C Dilution: Green Dose: 0.3 [...] AM EDT Office Visit Hematology/Oncology at [address] [phone] El Bernardo MD [facility] [place] [address] [address] [place] [address] 04/21/2024 8:00 AM EST Appointment Mammography[place] [address] [address] Tamayo [address] HEMATOLOGY AND ONCOLOGY [place], [place] [id number] documented as of this encounter Visit Diagnoses Diagnosis Allergic rhinitis due to pollen Allergic rhinitis, cause unspecified documented in this encounter Care Teams Crusher Assembler Relationship Specialty Start Date End Date Michelle Silveira PA PCP - General 05/09/10 08/04/15 documented as of this encounter
--- OUTSIDE RECORDS SUMMARY | 2024-02-27 12:46 | XMS_ITS | Encounter Summary ---
Author Organization [facility] Address [facility] [place] [address] Care Team Providers Care Steward/Stewardess Second Class Name Role Phone Raoul Michelle YADIRA Primary Care Provider [phone] Reason for Visit * Reason Comments Injections Encounter Details Date Type Department Care Team ([facility] st Contact Info) Description 12/16/2012 3:15 PM EDT Office Visit Allergy at [facility] [place] [address] ALLERGY, INJECTION Allergy to mites (Primary Dx); Allergic rhinitis, cause unspecified; Allergic rhinitis due to pollen; Allergy to cats; Allergy to dog dander Discharge Disposition: Home Social History Tobacco Use Types Packs/Day Years Used Date Smoking Tobacco: Never Smokeless Tobacco: Never Comments:only exposure was a s a child Alcohol Use Standard Drinks/Week Comments Yes 0 (1 standard drink = 0.6 oz pur e alcohol) Occasionally Sex and Gender Information Value Date Recorded Sex Assigned at Not on file Gender Identity Not on file Sexual Orientation Not on file documented as of this encounter Progress Notes * Ankita Guzmán LPN - 12/16/2012 3:35 PM EDT Rebeca Hernández has come into the Allergy Clinic for allergy injection. A reported problems with the last injections. Reported lumps bigger than a silver dollar at both sites and feeling sick to herstomach once she was home. Antihistamine taken as directed. Epipen brought to appointment. Consulted with Dr Swanson and told of above. She said to dilute it down one more time and build up from there. Injections given per Dr Swanson's orders. Injections given:Building Extract: Mix A (F&P Mite,Mold Mix) Dilution: Silver (0.22au/ml,1:1,000,000w/v ) Dose: 0.05cc Site: right arm sc Rxn: none Extract: Mix B (Arnol Grass,Cat,Tree Mix,[place] Mix,Dog) Dilution: Silver (0.2bau/ml,0.1bau/ml,1:2,000,000w/v,1:2,000,000w/v,1,1,000,0000w/v) Dose: 0.05 cc Site: left arm sc Rxn: none No c/o upset stomach,nausea, or redness/hives at injection sites. Asked patient to please call in am to let us know how is doing. Patient was instructed to take an antihistamine the night before injections and the day/Am of injections. Pt was observed here in the waiting area for 30 minutes. NO adverse side effects were noted. Pt ambulated from clinic in stable condition. documented in this encounter Plan of Treatment Upcoming Encounters Date Type Department Care Team (Late st Contact Info) Description 03/27/2024 11:00 AM EDT Office Visit Hematology/Oncology at [address] [phone] El Bernardo MD [facility] [place] [address] Linda Tamayo [address] HEMATOLOGY AND ONCOLOGY [place], [place] [address] 04/21/2024 8:00 AM EST Appointment Mammography/[place] [address] Linda Tamayo [address] HEMATOLOGY AND ONCOLOGY [place], [place] [address] documented as of this encounter Visit Diagnoses Diagnosis Allergy to mites- Primary Allergy, unspecified not elsewhere classified Allergic rhinitis, cause unspecified Allergic rhinitis due to pollen Allergy to cats Allergic rhinitis due to other allergen Allergy to dog dander Allergic rhinitis due to animal (cat) (dog) hair and dander documented in this encounter Care Teams Steward/Stewardess Second Class Relationship Specialty Start Date End Date Michelle Silveira PA PCP - General 05/09/10 08/04/15 documented as of this encounter
--- OUTSIDE RECORDS SUMMARY | 2024-02-27 12:46 | XMS_ITS | Encounter Summary ---
Author Organization [facility] Address [facility] [place] [address] Care Team Providers Care Paper Wrapping Machine Operator Name Role Phone Michelle Silveira YADIRA Primary Care Provider [phone] Reason for Visit * Reason Onset Date Comments Medication Refill 01/21/2013 Encounter Details Date Type Department Care Team (Late Contact Info) Description 01/21/2013 Refill [place] [address] Carly Solano MD [facility] DR [place] [address] Menopause (Primary Dx) Social History Tobacco Use Types [...] AM EDT Office Visit Hematology/Oncology at [address] [phone] El Bernardo MD [facility] [place] [place] [address] Linda Tamayo APRN [address] [place] [address] DR HEMATOLOGY AND ONCOLOGY [place], [place] [address] 04/21/2024 8:00 AM EST Appointment Mammography/[place] [address] Linda Tamayo APRN [address] [place] [address] DR HEMATOLOGY [place] [address] documented as of this encounter Visit Diagnoses Diagnosis Menopause- Primary Asymptomatic postmenopausal status (age-related) (natural) documented in this encounter Care Teams Paper Wrapping Machine Operator Relationship Specialty Start Date End Date Michelle Silveira PA PCP - General 05/09/10 08/04/15 documented as of this encounter
--- OUTSIDE RECORDS SUMMARY | 2024-02-27 12:46 | XMS_ITS | Encounter Summary ---
Author Organization [facility] Address [facility] [place] [address] Care Team Providers Care Wick And Base Assembler Name Role Phone RaoulMichelle YADIRA Primary Care Provider [phone] Encounter Details Date Type Department Care Team (Late Contact Info) Description 12/09/2012 Telephone [place] [address] Dipti Cedeño MSW [facility] DR HEMATOLOGY/[place] [address] Social History Tobacco Use Types Packs/Day Years [...] encounter Miscellaneous Notes * Telephone Encounter - Dipti Cedeño MSW - 12/09/2012 2:47 PM EDT PC from Ms. Hernández asking for gas assistance. We discussed the [facility] mileage reimbursement program, she will call today to get registered to get reimbursement. We discussed the limits of assistance from the emergency fund. I will leave two cards to assist at the 6M desk for her to order picker/assembler tomorrow. documented in this encounter Plan of Treatment Upcoming Encounters Date Type Department Care Team (Late Contact Info) Description 03/27/2024 11:00 AM EDT Office Visit Hematology/Oncology at [address] [phone] El Bernardo MD [facility] [place] [place] [address] [address] HEMATOLOGY AND ONCOLOGY [place], [place] [id number] 04/21/2024 8:00 AM EST Appointment Mammography[place] [address] [address] HEMATOLOGY AND ONCOLOGY [place], [place] [id number] documented as of this encounter Visit Diagnoses Not on filedocumented in this encounter Care Teams Wick And Base Assembler Relationship Specialty Start Date End Date Michelle Silveira PA PCP - General 05/09/10 08/04/15 documented as of this encounter
--- OUTSIDE RECORDS SUMMARY | 2024-02-27 12:46 | XMS_ITS | Encounter Summary ---
Author Organization [facility] Address [facility] [place] [address] Care Team Providers Care Bitumen Plant Operator Name Role Phone Raoul Michelle YADIRA Primary Care Provider [phone] Reason for Visit * Reason Comments Injections Encounter Details Date Type Department Care Team ([facility] st Contact Info) Description 12/10/2012 10:15 AM EDT Office Visit Allergy at [facility] [place] [address] ALLERGY, INJECTION Allergy to mites (Primary Dx); Allergic rhinitis due to pollen; Allergy to cats; Allergic rhinitis, cause unspecified Discharge Disposition: Home [...] Progress Notes * Ankita Guzmán LPN - 12/10/2012 11:44 AM EDT Rebeca Hernández has come into the Allergy Clinic for allergy injection. No reported problems with the last shot. Antihistamine taken as directed. Epipen brought to appointment. Injections given per Dr Swanson's orders. Injections given:Building Extract: Mix A (F&P Mite,Mold Mix) Dilution: Green (2au/ml,1:100,000w/v Dose: 0.05cc Site: left arm sc Rxn: none Extract: Mix B (Arnol Grass,Cat,Tree Mix,Phenix Mix,Dog) Dilution: Green (2bau/ml,1bau/ml,1:200,000w/v,1:200,000w/v,1,100,000w/v) Dose: 0.05 cc Site: right arm sc Rxn: none Pt was observed here in the waiting area for 30 minutes. NO adverse side effects were noted. Pt ambulated from clinic in stable condition. documented in this encounter Procedure Notes * Provider, Scanning - 07/16/2013 3:21 PM ESTAssociated Order(s): SCAN DOC: ALLERGY documented in this encounter Plan of Treatment Upcoming Encounters Date Type Department Care Team (Late st Contact Info) Description 03/27/2024 11:00 AM EDT Office Visit Hematology/Oncology at [address] [phone] El Bernardo MD [facility] [place] [address] [address] HEMATOLOGY AND ONCOLOGY [place], [place] [address] 04/21/2024 8:00 AM EST Appointment Mammography/[place] [address] [place] [address] documented as of this encounter Procedures Procedure Name Priority Date/Time Associated Diagnosis Comments ALLERGY SCAN 07/16/2013 3:21 PM EST documented in this encounter Results * SCAN DOC: ALLERGY (07/16/2013 3:21 PM EST) Narrative 07/16/2013 3:21 PM EST Procedure Note Provider, Scanning - 07/16/2013 3:21 PM EST Scanning Provider MEDIA MGR SCAN EXT O RDR/RSLT documented in this encounter Visit Diagnoses Diagnosis Allergy to mites- Primary Allergy, unspecified not elsewhere classified Allergic rhinitis due to pollen Allergy to cats Allergic rhinitis due to other allergen Allergic rhinitis, cause unspecified documented in this encounter Care Teams Bitumen Plant Operator Relationship Specialty Start Date End Date Michelle Silveira PA PCP - General 05/09/10 08/04/15 documented as of this encounter
--- OUTSIDE RECORDS SUMMARY | 2024-02-27 12:46 | XMS_ITS | Encounter Summary ---
Author Organization [facility] [place] [address] Care Team Providers Care Tie Layer Name Role Phone Michelle Silveira YADIRA Primary Care Provider [phone] Encounter Details Date Type Department Care Team (Late Contact Info) Description 11/03/2012 Telephone [place] [address] Ana Swanson MD [facility] [place] [address] Social History Tobacco Use Types Packs/Day Years [...] Miscellaneous Notes * Telephone Encounter - Ana Swanson MD - 11/03/2012 12:32 PM EDT lft msg for pt that if she decides on IT she will need to rtc for skin testing Dr Orourke said she could stop Toprol prior to IT for 1-2 days documented in this encounter Plan of Treatment Upcoming Encounters Date Type Department Care Team (Late Contact Info) Description 03/27/2024 11:00 AM EDT Office Visit Hematology/Oncology at [address] [phone] lE Bernardo MD [facility] [place] [address] [address] HEMATOLOGY AND ONCOLOGY [place], [place] [id number] 04/21/2024 8:00 AM EST Appointment Mammography/[place] [phone] Linda Tamayo[address] HEMATOLOGY AND ONCOLOGY [place], [place] [id number] documented as of this encounter Visit Diagnoses Not on filedocumented in this encounter Care Teams Tie Layer Relationship Specialty Start Date End Date Michelle Silveira PA PCP - General 05/09/10 08/04/15 documented as of this encounter
--- OUTSIDE RECORDS SUMMARY | 2024-02-27 12:46 | XMS_ITS | Encounter Summary ---
Author Organization [facility] Address [facility] [place] [address] Care Team Providers Care Screw Machine Adjuster Automatic Name Role Phone Raoul Michelle YADIRA Primary Care Provider [phone] Reason for Visit * Reason Onset Date Comments Questions 04/28/2013 Encounter Details Date Type Department Care Team ([facility] st Contact Info) Description 04/28/2013 Telephone Gynecology Oncology at [facility] [place] [phone] Brittany Dorado, RN Questions Social History Tobacco Use Types Packs/Day Years [...] encounter Miscellaneous Notes * Telephone Encounter - Brittany Dorado RN - 04/28/2013 4:06 PM EST TELEPHONE NOTE Caller: Rebeca Hernández Reason for call: mood instabilty postop Assessment: Rebeca is 7 day postop s/p laparoscopic risk-reducing bilateral salpingo-oophorectomy on 04/21/13. States 2 days postop noticed she was crying over nothing and since then she feels she is having PMS symptoms, crying and gonzalez and it has been worse the past 2 days. States she was told by her machinery engineer to try black cohosh but she doesn't want to waste money on anything unless she knows there is a real chance it will work. She states she has been diagnosed as bi-polar and she doesn't want to try any of the antidepressants again because she has tried many and she has different reactions to each of them, but mostly she is prone to be manic when taking antidepressants. States it is very embarrassing that she janiya so easily and has even started crying in the store forno reason. She doesn't want to go see a psychiatrist because she does not like the feeling of beingdrugged. Plan/Instructions: Reviewed with Dr. Solano. Explained to Rebeca that Dr. Solano states that her moods should even out and she should try to use as minimal intervention as possible. Rebeca does notwant to try any antidepressants at this time, does not want to try black cohosh because she isn't having any bloating, night sweats, or hot flashes. She will read up on remifemin and she may try that. If she doesn't feel any better in a week she stated she would call because she doesn't feel she can go on like this until May 25 when she has her next appointment with Dr. Solano. documented in this encounter Plan of Treatment Upcoming Encounters Date Type Department Care Team (Late st Contact Info) Description 03/27/2024 11:00 AM EDT Office Visit Hematology/Oncology at [address] [phone] El Bernardo MD [facility] [place] [address] Linda Tamayo [address] HEMATOLOGY AND ONCOLOGY [place], [place] [address] 04/21/2024 8:00 AM EST Appointment Mammography[place] [address] Linda Tamayo [address] HEMATOLOGY AND ONCOLOGY [place], [place] [address] documented as of this encounter Visit Diagnoses Not on filedocumented in this encounter Care Teams Screw Machine Adjuster Automatic Relationship Specialty Start Date End Date Michelle Silveira PA PCP - General 05/09/10 08/04/15 documented as of this encounter
--- OUTSIDE RECORDS SUMMARY | 2024-02-27 12:46 | XMS_ITS | Encounter Summary ---
Author Organization [facility] [place] [address] Care Team Providers Care Furniture Technician Name Role Phone Michelle Silveira YADIRA Primary Care Provider [phone] Reason for Visit * Reason Onset Date Comments Other 02/12/2013 allergy injectio ns Encounter Details Date Type Department Care Team (Late Contact Info) Description 02/12/2013 [place] [phone] Ankita Guzmán LPN Other (allergy injections) Social History Tobacco Use Types Packs/Day [...] Telephone Encounter - Ankita Guzmán LPN - 02/12/2013 9:18 AM EDT Pt would like to stop her allergy injections until after a graves. Talked with Dr Swanson is OK with her waiting. documented in this encounter Plan of Treatment Upcoming Encounters Date Type Department Care Team (Late Contact Info) Description 03/27/2024 11:00 AM EDT Office Visit Hematology/Oncology at [address] [phone] El Bernardo MD [facility] [place] [address] [address] HEMATOLOGY AND ONCOLOGY [place], [place] [id number] 04/21/2024 8:00 AM EST Appointment Mammography/[place] [address] [address] HEMATOLOGY AND ONCOLOGY [place], [place] [address] documented as of this encounter Visit Diagnoses Not on filedocumented in this encounter Care Teams Furniture Technician Relationship Specialty Start Date End Date Michelle Silveira PA PCP - General 05/09/10 08/04/15 documented as of this encounter
--- OUTSIDE RECORDS SUMMARY | 2024-02-27 12:46 | XMS_ITS | Encounter Summary ---
Author Organization [facility] Address [facility] [place] [address] Care Team Providers Care Agriculture Engineer Name Role Phone Raoul Michelle YADIRA Primary Care Provider [phone] Reason for Visit * Reason Comments Allergies Wants to restart all ergy shots Encounter Details Date Type Department Care Team ([facility] st Contact Info) Description 11/26/2013 12:45 PM EDT [place] [phone] Queenie Warren MD [facility] [place] [address] Conjunctivitis, allergic (Primary Dx); Chronic allergic rhinitis; Environmental allergies Discharge Disposition: Home Social History [...] Sign Reading Time Taken Comments Blood Pressure 113/80 11/26/2013 1:15 PM EDT Pulse 88 11/26/2013 1:15 PM EDT Temperature - - Respiratory Rate 14 11/26/2013 1:15 PM EDT Oxygen Saturation - - Inhaled Oxygen Concentration - - Weight 77.1 kg (170 lb) 11/26/2013 1:15 PM EDT Height 167.6 cm (5' 6) 11/26/2013 1:15 PM EDT Body Mass Index 27.44 11/26/2013 1:15 PM EDT documented in this encounter Patient Instructions * Patient Instructions* Queenie Warren MD - 11/26/2013 1:41 PM EDT - Stop levocetirizine and Flonase - Start Janina 180mg once daily - Start Nasonex 2 sprays in each nostril once daily. - Start Astelin 2 sprays in each nostril twice daily ALLERGY SEASONS & AVOIDANCE: Dust mites: Year-round, especially Fall 1. Dust mite encasings, pillow and mattress ( ie From [employer]; [employer], [employer], [employer], [facility], [employer]) 2. Wash bedding in hot water (no hotter than 120 degrees F) weekly 3. Humidity control, 30-50% 4. Minimize carpet and stuffed animal exposure Animals: Year-round 1. Minimize animal allergen exposure 2. Removal or -- regular baths/wiping of animal once per week -- exclusion from the bedroom -- HEPA filter in bedroom and living area -- Consider allergen pillow and mattress casings. Molds: Year-round, especially Fall 1. Remove obvious mold 2. Minimize moisture / leaks 3. Humidity control, 30-50% Pollens: Grass: Late Spring; Trees: Early Spring; Weeds: Mid Summer; Ragweed: Late Summer 1. Nightly hair washing during pollen seasons 2. Keep windows closed, consider window a/c unit with filter 3. Do not place fans in windows 4. Do not dry clothes outside. 5. Wear mask and goggles when mowing the lawn documented in this encounter Progress Notes * Queenie Warren MD - 11/26/2013 1:23 PM EDT Chief Complaint Patient presents with ??? Allergies Wants to restart allergy shots HPI. Rebeca Hernández Is here today for a follow up visit. Last encounter in this section was on 11-18-[address] Swanson. She was riding her bike over the weekend and while she was outdoors, she started to have generalized itchiness. She has nasal congestion, rhinorrhea, itchy eyes and sneezing. Last year when she came into contact with tall grass, she developed facial swelling and difficulty breathing. She went to the ER. She has had an EpiPen since this reaction. She felt more depressed while on the Xyzal 5mg twice and stopped it. She is not taking Flonase because she feels it irritated her nose. She has Patanol eye drops and rarely uses it. She has a dog. Dog sleeps in the bedroom. She gave away her last cat. Has wall to wall carpet in the bedroom. She does not have dust mite covers on her pillow and mattress. She washes her linens weekly in hot water. Review of Systems: All other systems reviewed and negative, except as noted below. Review of Systems HENT: Positive for congestion. Rhinorrhea, sneezing All other systems reviewed and are negative. Allergies, medications, past medical/ surgical history were reviewed and updated in eDH. Allergies: Tramadol; Carvedilol; Morphine; Codeine phosphate; Penicillins; Unknown; and Vicodin Medications: Outpatient Prescriptions Marked as Taking for the 11/26/13 encounter (Follow-Up) with Queenie Warren MD Medication Sig Dispense Refill ??? olopatadine (PATANOL) 0.1 % ophthalmic solution Place 1 drop into both eyes 2 times daily as needed for Allergies (itchy eyes). 5 mL 5 ??? estradiol (VAGIFEM) [address] 1 tablet vaginally twice a week. 8 tablet 10 ??? ibuprofen (ADVIL;MOTRIN) 600 mg tablet Take 1 tablet by mouth every 6 hours as needed for Pain.30 tablet 0 ??? [DISCONTINUED] epiNEPHrine (EPIPEN) 0.3 mg/0.3 mL (1:1,000) injection Inject 0.3 mLs into the muscle once as needed for 1 dose. 0.3 mL 1 ??? [DISCONTINUED] olopatadine (PATANOL) 0.1 % ophthalmic solution Place 1 drop into both eyes 3 times daily as needed for Allergies. 5 mL 5 ??? valACYclovir (VALTREX) 500 mg tablet Take 500 mg by mouth 2 times daily as needed. ??? [DISCONTINUED] Levocetirizine (XYZAL) 5 mg Tab Take 5 mg by mouth 2 times daily. 60 tablet 12 ??? LORazepam (ATIVAN) 1 mg tablet Take 1 mg by mouth nightly as needed. Past Medical and Social History: Past Medical History Diagnosis Date ??? Bipolar disorder, rapid cycling Past Surgical History Procedure Date ??? Created by interface Cone biopsy [...] ADNEXA performed by Carly Chamberlain MD at [facility] MAIN OR ??? Tonsillectomy ??? Adenoidectomy [...] Comment: Occasionally ??? Drug Use: No ??? Sexually Active: Not Currently Other Topics Concern ??? None Social History Narrative ??? None Physical Exam: Vital signs reviewed. Normal Except [...] intact Tests or Procedures: Impression Report Plan: #1 allergic rhinitis #2 allergic conjunctivitis #3 environmental allergies -reviewed with her instructions on allergy shots - will hold off for now and attempt control of sx with medical therapy - Reviewed environmental control and avoidance measures - cont patanolol - Stop levocetirizine and Flonase - Start Janina 180mg once daily - Start Nasonex 2 sprays in each nostril once daily. - Start Astelin 2 sprays in each nostril twice daily Medication ordered or changed during this encounter, will not show discontinued medications Medications ??? fexofenadine (JANINA) 180 mg tablet Sig: Take 1 tablet by mouth daily. Dispense: 30 tablet Refill: 12 ??? NASONEX 50 mcg/actuation [place] Si sprays by Nasal route daily. Dispense: 17 g Refill: 12 ??? EPINEPHrine (EPIPEN) 0.3 mg/0.3 mL (1:1,000) injection Sig: Inject 0.3 mLs into the muscle once as needed (difficulty breathing, throat swelling, loss of consciousness) for up to 1 dose. Call 911. Dispense: 2 each Refill: 1 ??? azelastine (ASTELIN) 137 mcg nasal spray Si sprays by Nasal route 2 times daily. Use in each nostril as directed Dispense: 30 mL Refill: 12 ??? olopatadine (PATANOL) 0.1 % ophthalmic solution Sig: Place 1 drop into both eyes 2 times daily as needed for Allergies (itchy eyes). Dispense: 5 mL Refill: 5 RTC in 5 mo eDH record was reviewed. Written instructions were [...] AM EDT Office Visit Hematology/Oncology at [address] [address] El Bernardo MD [facility] [place] [address] Linda Tamayo, [address] HEMATOLOGY AND ONCOLOGY [place], [place] [address] 04/21/2024 8:00 AM EST Appointment Mammography/[place] [address] Linda Tamayo, [address] HEMATOLOGY AND ONCOLOGY [place], [place] [address] documented as of this encounter Visit Diagnoses Diagnosis Conjunctivitis, allergic- Primary Other chronic allergic conjunctivitis Chronic allergic rhinitis Allergic rhinitis, cause unspecified Environmental allergies Allergic rhinitis, cause unspecified documented in this encounter Care Teams Agriculture Engineer Relationship Specialty Start Date End Date Michelle Silveira PA PCP - General 05/09/10 08/04/15 documented as of this encounter
--- OUTSIDE RECORDS SUMMARY | 2024-02-27 12:46 | XMS_ITS | Encounter Summary ---
Author Organization [facility] [place] [address] Care Team Providers Care Child Advocate Name Role Phone Michelle Silveira YADIRA Primary Care Provider [phone] Encounter Details Date Type Department Care Team (Late st Contact Info) Description 04/21/2013 4:08 PM EST Anesthesia Event [place] [address] Gary Shrestha MD [facility] [place] [address] Jeevan Adan MD [facility] [place] [address] Anesthesia Record Procedure Summary Procedure Name Responsible Anesthesiologist Anesthesia Start Time Anesthesia Stop Time LAPAROSCOPY, REMOVAL OF ADNEXA (WRVU 11.35) (Pelvis) Gary Shrestha MD 04/21/13 1608 04/21/13 1739 Events Date Time Event Comment 04/21/2013 1608 AN Verify 1608 Start 1611 An Start Data 1617 An Induction 1619 An Intubation 1639 Anesthesia Ready 1644 Procedure Start 1726 Extubation/LMA Out 1726 an stop data 1739 Stop 04/28/2013 1453 Meds Name Total fentaNYL 150 mcg lidocaine IV 40 mg propofol 150 mg Rocuronium 50 mg PHENYLephrine 240 mcg Ondansetron 4 mg Dexamethasone 4 mg Neostigmine 5 mg Glycopyrrolate 0.6 mg lactated ringers infusion 1,000 mL 0 mL * Agents Name O2 Air N2O Isoflurane (et) * Blood No blood administrations on file. Lines, Drains, and Airways Type Details Placement Removal Urethral Catheter 04/21/13; 1638; indwelling double lumen catheter; 100% silicone; 16; inserted (with ease by Juan J Hopkins. ); 1; drainage bag to dependent drainage 04/21/13 1638 by Marianela Jacobo RN (RETIRED) Peripheral IV Line - Single Lumen 04/21/13; 1312; 04/21/13; 204004/21/13 1312 by Viky Acuna RN 04/21/132040 by Pbebles Brady RN (RETIRED) Peripheral IV Line - Single Lumen 04/21/13; 204004/21/13 1644 by 04/21/13 204 by Pebbles Brady RN Incision 04/21/13; 1647; abdomen; 02/12/22 (LDA cleanup utility RA#[id number]); 1715 (LDA cleanup utility RA#[id number]) 04/21/13 164 by Marianela Jacobo RN 02/12/22 1715 by Merlin Traore (RETIRED) Non-Surgical Airway Mask Ventilation: Easy (1); ETT Type: Cuffed, Oral; ETT Size: 7 mm; Removal Date: 04/21/13; Removal Time: 1726 04/21/13 1647 by 04/21/13 1726 by Jeevan Adan MD documented in this encounter Social History Tobacco Use Types Packs/Day Years [...] on file documented as of this encounter OR Notes * Anesthesia Postprocedure Evaluation - Jeevan Adan - 04/21/2013 5:40 PM EST Patient: Rebeca Hernández Procedure(s) Performed: Procedure(s): LAPAROSCOPY, REMOVAL OF ADNEXA Actual Anesthetic: GETA Patient location: PACU Post-op pain: Adequate analgesia Post-op nausea: no nausea or vomiting Last Vitals: Filed Vitals: 04/21/13 1246 BP: 128/78 Pulse: 75 Temp: 36.4 ??C (97.5 ??F) Resp: 14 Post-op cardiovascular and respiratory status: is stable Level of consciousness: awake, alert and oriented Complications: no apparent complications and tolerated the procedure well Fluid Status: normal * Anesthesia Preprocedure Evaluation - Vic Rivera MD - 04/21/2013 4:11 PM EST Pre-Anesthesia Evaluation for: Rebeca Hernández a 52 y.o. female. Procedure(s): LAPAROSCOPY, REMOVAL OF ADNEXA Patient Active Problem List Diagnosis ??? Nevus ??? BRCA1 positive ??? Breast cancer A. S/P partial L mastectomy 2004 B. Treated with cytoxan and doxorubicin and radiation therapy. ??? Depression ??? Chest pain A. Stress test [facility] 06/28: exercised to 10.1 METs and [...] Palpitations ??? S/P TKR (total knee replacement) Left No past medical history on file. History Substance Use Topics ??? Smoking status: Never Smoker ??? Smokeless tobacco: Never Used Comment: only exposure was as a child ??? Alcohol Use: No Occasionally History Drug Use No Allergies Allergen Reactions ??? Tramadol Hives ??? Carvedilol Rash ??? Morphine Itching Extreme itching ??? Codeine Phosphate Rash ??? Penicillins Rash ??? Unknown (Unclassified Drug) Environmental alergies Hay fever ??? Vicodin (Hydrocodone-Acetaminophen) Rash Medications: MAR and/or home medications have been reviewed. Physical Exam: There were no vitals filed for this visit. There is no height or weight on file to calculate BMI. Airway Assessment: Mallampati: II TM distance: >3 FB Neck ROM: full Cardiovascular Assessment: Rhythm: regular Rate: normal (-) murmur Pulmonary Assessment: breath sounds clear to auscultation Dental Assessment: - normal exam Misc Assessment: Patient is wearing No contact(s). IV access: Peripheral line Anesthesia Plan: ASA 2 general, with a(n) intravenous induction 52 yo generally healthy female who is BRCA1 positive with h/o breast ca, here for lap adnexal removal. Denies h/o ASCVD, sig pul dz (no asthma exacerbations, no pred use, no h/o intubations), renal or hepatic disease, or DM. Allergies: tramadol, carvediolo, morphine, codeine, pcn, vicodin Meds: estradiol, patanol, valcyclovir, fluticasone, montelukast, terazol, ibuprofen Nonsmoker, no sig alcohol, > 4 METS NPO okay ROS neg, GERD controlled No recent URI Airway reassuring, lungs clear, no murmur Plan: GA/ETT. R/B discussed, consent signed. Region - Other Informed Consent: Anesthetic plan and risks discussed with patient. Use of blood products discussed with patient whom. Misc. Assessment: documented in this encounter Plan of Treatment Upcoming Encounters Date Type Department Care Team (Late st Contact Info) Description 03/27/2024 11:00 AM EDT Office Visit Hematology/Oncology at [address] [address] El Bernardo MD [facility] [place] [address] Linda Tamayo [address] HEMATOLOGY AND ONCOLOGY [place], [place] [address] 04/21/2024 8:00 AM EST Appointment Mammography/[place] [address] Linda Tamayo [address] HEMATOLOGY AND ONCOLOGY [place], [place] [address] documented as of this encounter Visit Diagnoses Not on filedocumented in this encounter Administered Medications Inactive Administered Medications - up to 3 most recent administrations Medication Order MAR Action Action Date Dose Rate Site dexamethasone (DECADRON) injection PRN, Starting on Sat04/21/13 at 1651, Until Sat04/21/13 at 1739, Anesthesia Intra-op, Routine Given 04/21/2013 4:51 PM EST 4 mg fentaNYL 50mcg/mL injection PRN, Starting on Sat04/21/13 at 1644, Until Sat04/21/13 at 1739, Pain, Anesthesia Intra-op, Routine Given 04/21/2013 5:36 PM EST 25 mcg Given 04/21/2013 5:29 PM EST 25 mcg Given 04/21/2013 4:44 PM EST 50 mcg glycopyrrolate (ROBINUL) injection PRN, Starting on Sat04/21/13 at 1703, Until Sat04/21/13 at 1739, Anesthesia Intra-op, Routine Given 04/21/2013 5:03 PM EST 0.6 mg lactated ringers infusion 1,000 mL 1,000 mL, at 100 mL/hr, Intravenous, CONTINUOUS, Starting on Sat04/21/13 at 1315, Until Sat04/21/13 at 2317, Day of Surgery (Day of Procedure) New Bag 04/21/2013 6:33 PM EST 1,000 mLs 100 mL/hr New Bag 04/21/2013 4:08 PM EST mL New Bag 04/21/2013 1:15 PM EST 1,000 mLs 100 mL/hr lidocaine (PF) (XYLOCAINE) 100 mg/5 mL (2 %) injection PRN, Starting on Sat04/21/13 at 1617, Until Sat04/21/13 at 1739, Anesthesia Intra-op, Routine Given 04/21/2013 4:17 PM EST 40 mg neostigmine (PROSTIGMINE) injection PRN, Starting on Sat04/21/13 at 1705, Until Sat04/21/13 at 1739, Anesthesia Intra-op, Routine Given 04/21/2013 5:05 PM EST 5 mg ondansetron (ZOFRAN) injection PRN, Starting on Sat04/21/13 at 1655, Until Sat04/21/13 at 1739, Nausea, Anesthesia Intra-op, Routine Given 04/21/2013 4:55 PM EST 4 mg PHENYLephrine HCl in NS (PF) (ESTHER-SYNEPHRINE) 0.8 mg/10 mL (80 mcg/mL) injection Syrg PRN, Starting on Sat04/21/13 at 1638, Until Sat04/21/13 at 1739, Anesthesia Intra-op, Routine Given 04/21/2013 5:13 PM EST 80 mcg Given 04/21/2013 4:38 PM EST 160 mcg propofol (DIPRIVAN) 10 mg/mL bolus injection (Anesthesia) PRN, Starting on Sat04/21/13 at 1617, Until Sat04/21/13 at 1739, Anesthesia Intra-op Given 04/21/2013 4:17 PM EST 150 mg rocuronium (ZEMURON) injection PRN, Starting on Sat04/21/13 at 1617, Until Sat04/21/13 at 1739, Anesthesia Intra-op, Routine Given 04/21/2013 4:17 PM EST 50 mg documented in this encounter Care Teams Child Advocate Relationship Specialty Start Date End Date Michelle Silveira PA PCP - General 05/09/10 08/04/15 documented as of this encounter
--- OUTSIDE RECORDS SUMMARY | 2024-02-27 12:46 | XMS_ITS | Encounter Summary ---
Author Organization [facility] [place] [address] Care Team Providers Care Bailiff Name Role Phone Michelle Silveira YADIRA Primary Care Provider [phone] Reason for Visit * Reason Comments Allergic Rhinitis Encounter Details Date Type Department Care Team ([facility] st Contact Info) Description 10/28/2012 2:15 PM EDT [place] [address] Ana Swanson MD [facility] DR [place] [address] Rhinitis, allergic (Primary Dx) Discharge Disposition: Home Social History Tobacco Use [...] Sign Reading Time Taken Comments Blood Pressure 121/72 10/28/2012 2:10 PM EDT Pulse 69 10/28/2012 2:10 PM EDT Temperature - - Respiratory Rate - - Oxygen Saturation - - Inhaled Oxygen Concentration - - Weight 86.2 kg (190 lb) 10/28/2012 2:10 PM EDT Height 167.6 cm (5' 6) 10/28/2012 2:10 PM EDT Body Mass Index 30.67 10/28/2012 2:10 PM EDT documented in this encounter Patient Instructions * Patient Instructions* Ana Swanson MD - 10/28/2012 2:58 PM EDT flonase 2 sprays each nostril daily xyzal one twice a day - if you can't get xyzal then take alavert or zyrtec 10 mg twice a day take singulair one tablet at bedtime documented in this encounter Progress Notes * Ana Swanson MD - 10/28/2012 4:59 PM EDT Subjective: Patient ID: Rebeca Hernández is a 51 y.o. female.who is seen at the request of Ms Silveira for allergyevaluation. Notes from her office were reviewed by me. HPI Ms Hernández reports a history of itchy ,swollen eyes, post nasal drip, sinus pressure,ear itching, and sneezing occurring during spring-fall primarily for many years. She notes that pollens and dust are triggers. On one occasion while hiking she had swelling of the throat during pollen season. She underwent prick skin testing in 1999 with positives to weed,tree,and grass pollens, and cat. Has 3 cats at home. Took allergy injections for ~ a year, but had to stop due to large local reactions. She has taken multiple medications including Zyrtec D,Neva D, Claritin D, and Benadryl with marginal results. She has tried a nasal steroid spray in the past but is no longer on this. Denies a h/o asthma. She has large local reactions to black fly bites. PH: Active Ambulatory Problems Diagnosis Date Noted ??? Breast cancer 08/12/2011 ??? Depression 08/12/2011 ??? Chest pain 08/12/2011 ??? Cardiomyopathy 08/12/2011 ??? GERD (gastroesophageal reflux disease) 08/12/2011 ??? Palpitations 08/12/2011 ??? S/P TKR (total knee replacement) 08/12/2011 ??? BRCA1 positive 12/16/2011 ??? Nevus 08/25/2012 Resolved Ambulatory Problems Diagnosis Date Noted ??? CIS - Left breast cancer 01/25/2005 No Additional Past Medical History Current Outpatient Prescriptions on File Prior to Visit Medication Sig Dispense Refill ??? metoprolol tartrate (LOPRESSOR) 25 mg tablet Take 25 mg by mouth daily. ??? terconazole (TERAZOL 7) 0.4 % vaginal cream Place 1 applicator vaginally nightly. 45 g 0 ??? ibuprofen (ADVIL;MOTRIN) 200 mg tablet Take 800 mg by mouth every 6 hours as needed. ??? LORazepam (ATIVAN) 1 mg tablet Take 1 mg by mouth nightly as needed. ??? Estradiol (VAGIFEM) [address] 1 tablet vaginally twice a week. 8 tablet 11 Allergies Allergen Reactions ??? Carvedilol Rash ??? Morphine Itching Extreme itching ??? Codeine Phosphate Rash ??? Penicillins Rash ??? Unknown (Unclassified Drug) Environmental alergies Hay fever ??? Vicodin (Hydrocodone-Acetaminophen) Rash FH: father,brother-allergic rhinitis SH: non smoker Env. survey: 3 cats,hot air heat,1 dog Review of Systems Constitutional: Positive for fatigue. HENT: Positive for sneezing, postnasal drip and sinus pressure. Eyes: Positive for itching. Gastrointestinal: Heartburn Musculoskeletal: Positive for arthralgias. Hematological: Bruises/bleeds easily. Psychiatric/Behavioral: Positive for disturbed wake/sleep cycle. All other systems reviewed and are negative. Objective: Physical Exam Constitutional: No distress. HENT: Right Ear: External ear normal. Left Ear: External ear normal. Mouth/Throat: No oropharyngeal exudate. mildly boggy mucosa Eyes: Conjunctivae are normal. Right eye exhibits no discharge. Left eye exhibits no discharge. Neck: Neck supple. Pulmonary/Chest: Breath sounds normal. Neurological: She is alert. Skin: No rash noted. Psychiatric: She has a normal mood and affect. Filed Vitals: 10/28/12 1410 BP: 121/72 Pulse: 69 Height: 167.6 cm (5' 6) Weight: 86.183 kg (190 lb) Assessment and Plan: Rebeca has a history of allergic rhinitis for many years with positive allergy prick skin testing in 1999 to cats and pollens. She is interested in immunotherapy,however, is on a beta dmitry, metoprolol, which is a contraindication to IT, due to the fact that beta blockers can blunt a person's response to epinephrine if it becomes necessary to use this in the event of a systemic reaction to an allergy injection. My recommendations are as follows: 1. Flonase 2 sen/day 2. Xyzal 5 mg bid-if this is not covered by insurance, she may take Zyrtec 10 mg bid instead 3.Singulair 10 mg h.s. I will ask Dr Orourke, her director internal audit, if the beta dmitry could be stopped 1-2 days prior to immunotherapy . She will RTC for skin testing depending on her response to the above measures. For treatment of swelling caused by reactions to black fly bites, she may take Benadryl 50 mg every6 hours as needed. Thank you for this referral. documented in this encounter Plan of Treatment Upcoming Encounters Date Type Department Care Team (Late st Contact Info) Description 03/27/2024 11:00 AM EDT Office Visit Hematology/Oncology at [address] [address] El Bernardo MD [facility] [place] [address] [address] [place] [address] 04/21/2024 8:00 AM EST Appointment Mammography/[place] [address] [address] [place] [address] documented as of this encounter Visit Diagnoses Diagnosis Rhinitis, allergic- Primary Allergic rhinitis, cause unspecified documented in this encounter Care Teams Bailiff Relationship Specialty Start Date End Date Michelle Silveira PA PCP - General 05/09/10 08/04/15 documented as of this encounter
--- OUTSIDE RECORDS SUMMARY | 2024-02-27 12:46 | XMS_ITS | Encounter Summary ---
Author Organization [facility] Address [facility] [place] [address] Care Team Providers Care Organic Chemistry Teacher Name Role Phone Raoul Michelle YADIRA Primary Care Provider [phone] Reason for Visit * Reason Comments Injections Encounter Details Date Type Department Care Team ([facility] Contact Info) Description 01/30/2013 8:45 AM EDT Office Visit Allergy at [facility] [place] [address] ALLERGY, INJECTION Allergy to mites (Primary Dx); [...] Progress Notes * Ankita Guzmán LPN - 01/30/2013 8:38 AM EDT Rebeca Hernández has come into the Allergy Clinic for allergy injection. A reported problems with the last pollen animal injection. Pt reports that injection site swelled up and was red the size of her palm. Decrease will be decreased today down to 0.2cc.Antihistamine taken as directed. Epipen brought to appointment. Injections given per Dr Swanson's orders. Injections given:Building Extract: Mix A (F&P Mite,Mold Mix) Dilution: Silver (0.22au/ml,1:1,000,000w/v ) Dose: 0.4cc Site: left arm sc Rxn: none Extract: Mix B (Arnol Grass,Cat,Tree Mix,[place] Mix,Dog) Dilution: Silver (0.2bau/ml,0.1bau/ml,1:2,000,000w/v,1:2,000,000w/v,1,1,000,0000w/v) Dose: 0.2cc Site:right arm sc Rxn: none Pt was observed here in the waiting area for 30 minutes. NO adverse side effects were noted. Pt ambulated from clinic in stable condition. documented in this encounter Plan of Treatment Upcoming Encounters Date Type Department Care Team (Late st Contact Info) Description 03/27/2024 11:00 AM EDT Office Visit Hematology/Oncology at [address] [address] El Bernardo MD [facility] [place] [address] [address] HEMATOLOGY AND ONCOLOGY [place], [place] [phone] 04/21/2024 8:00 AM EST Appointment Mammography[place] [address] [address] HEMATOLOGY AND ONCOLOGY [place], [place] [address] documented as of this encounter Visit Diagnoses Diagnosis Allergy to mites- Primary Allergy, unspecified not elsewhere classified Allergic rhinitis, cause unspecified Allergic rhinitis due to pollen Allergy to cats Allergic rhinitis due to other allergen Allergy to dog dander Allergic rhinitis due to animal (cat) (dog) hair and dander documented in this encounter Care Teams Organic Chemistry Teacher Relationship Specialty Start Date End Date Michelle Silveira PA PCP - General 05/09/10 08/04/15 documented as of this encounter
--- OUTSIDE RECORDS SUMMARY | 2024-02-27 12:46 | XMS_ITS | Encounter Summary ---
Author Organization [facility] Address [facility] [place] [address] Care Team Providers Care Dish Machine Operator Name Role Phone Raoul Michelle YADIRA Primary Care Provider [phone] Reason for Visit * Reason Comments Injections Encounter Details Date Type Department Care Team ([facility] st Contact Info) Description 01/23/2013 9:30 AM EDT Office Visit Allergy at [facility] [place] [address] ALLERGY, INJECTION Allergy to mites (Primary Dx); [...] Progress Notes * Ankita Guzmán LPN - 01/23/2013 9:45 AM EDT Rebeca Hernández has come into the Allergy Clinic for allergy injection. No reported problems with the last injections. Antihistamine taken as directed. Epipen brought to appointment. Injections given per Dr Swanson's orders. Injections given:Building Extract: Mix A (F&P Mite,Mold Mix) Dilution: Silver (0.22au/ml,1:1,000,000w/v ) Dose: 0.3cc Site: right arm sc Rxn: none Extract: Mix B (Arnol Grass,Cat,Tree Mix,[place] Mix,Dog) Dilution: Silver (0.2bau/ml,0.1bau/ml,1:2,000,000w/v,1:2,000,000w/v,1,1,000,0000w/v) Dose: 0.3cc Site:left arm sc Rxn: none Pt was observed here in the waiting area for 30 minutes. NO adverse side effects were noted. Pt ambulated from clinic in stable condition. documented in this encounter Plan of Treatment Upcoming Encounters Date Type Department Care Team (Late st Contact Info) Description 03/27/2024 11:00 AM EDT Office Visit Hematology/Oncology at [address] [phone] El Bernardo MD [facility] [place] [address] [address] HEMATOLOGY [place] [address] 04/21/2024 8:00 AM EST Appointment Mammography[place] [address] [address] HEMATOLOGY AND ONCOLOGY [place], [place] [address] documented as of this encounter Visit Diagnoses Diagnosis Allergy to mites- Primary Allergy, unspecified not elsewhere classified Allergic rhinitis, cause unspecified Allergic rhinitis due to pollen Allergy to cats Allergic rhinitis due to other allergen Allergy to dog dander Allergic rhinitis due to animal (cat) (dog) hair and dander documented in this encounter Care Teams Dish Machine Operator Relationship Specialty Start Date End Date Michelle Silveira PA PCP - General 05/09/10 08/04/15 documented as of this encounter
--- OUTSIDE RECORDS SUMMARY | 2024-02-27 12:46 | XMS_ITS | Encounter Summary ---
Author Organization Formerly [facility], 1928–1983 Address [facility] [place] [address] Care Team Providers Care Oracle Solutions Architect Name Role Phone Raoul Michelle YADIRA Primary Care Provider [phone] Encounter Details Date Type Department Care Team (Late st Contact Info) Description 06/27/2012 1:30 PM EST Follow-Up Hematology Oncology at [address] [phone] El Bernardo MD [facility] [place] [address] Breast cancer (Primary Dx); BRCA gene positive Discharge Disposition: Home Social History Tobacco Use Types Packs/Day Years Used Date Smoking Tobacco: Never Alcohol Use Standard Drinks/Week Comments Yes 0 (1 standard drink = 0.6 oz pur e alcohol) Occasionally Sex and Gender Information Value Date Recorded Sex Assigned at Not on file Gender Identity Not on file Sexual Orientation Not on file documented as of this encounter Last Filed Vital Signs Vital Sign Reading Time Taken Comments Blood Pressure 110/79 06/27/2012 1:29 PM EST Pulse 88 06/27/2012 1:29 PM EST Temperature 36.6 ??C (97.9 ??F) 06/27/2012 1:29 PM ES T Respiratory Rate 16 06/27/2012 1:29 PM EST Oxygen Saturation 98% 06/27/2012 1:29 PM EST Inhaled Oxygen Concentration - - Weight 86.6 kg (191 lb) 06/27/2012 1:29 PM EST Height 162.6 cm (5' 4.02) 06/27/2012 1:29 PM ES T Body Mass Index 32.77 06/27/2012 1:29 PM EST documented in this encounter Progress Notes * El Bernardo MD - 06/27/2012 11:28 AM EST Subjective: Patient ID: Rebeca Hernández is a 51 y.o. female. Problem List: 1. Cancer of [...] with heterologous chondroid differentiation Tumor Grade: High Tcafpi-Uanhe-Mgsrcthigo Score: 9 Tubular Differentiation: 3 Mitotic Rate: [...] carcinoma: 4 Estrogen/Progestin receptors: ER immunoreactivity: Negative ND immunoreactivity: Negative HER2/yeyo expression by FISH: NEGATIVE FOR HER2/YEYO AMPLIFICATION H. s/p adjuvant chemotherapy (AC). Completed 6 cycles 07/25/05. I. Adjuvant radiation therapy, completed 12/07/05. J. 06/24/12: Bilateral mammogram -CONCLUSION This is a NEGATIVE mammogram (ACR Category 1). Routine screening mammography is recommended with the frequency dependent on the patient's age and breast cancer risk factors. Breast MRI: SUMMARY: LEFT BREAST: BENIGN FINDING (BIRADS Category 2). Post-treatment change only. RIGHT BREAST: NEGATIVE (BIRADS Category 1). No suspicious enhancement to suggest breast cancer. 2. BRCA 1 mutation Family hx: One [...] same BRCA1 alteration found in her mother ([id number]). She is follwed by Dr. Chamberlain and has so far chosen not to have prophylactic BSO. Trans-vaginal US 06/24/12 -1. Small post-menopausal normal appearing ovaries. 2. Normal thickness endometrium. 3. No free fluid in the cul-de-sac. 3. 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 Her periods stopped for a while after chemo, then returned for a couple of cycles and stopped again. Past Surgical History: Cone biopsy of her cervix, which was benign and excision of a basal cell carcinoma. 4. Cardiomyopathy - follows with Dr. Orourke HPI Ms. Hernández is seen in f/u of cancer of the left breast as above. 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 It was hormone receptor and her-2/yeyo negative. She received adjuvant chemotherapy with AC and radiation and completed all therapy in 11/20. Of note, she has undergone genetic testing and is BRCA-1 positive. She had a recent mammogram and breast MR I. She also follows with Dr. Chamberlain for ovarian cancer screening and had a transvaginal US on 06/24/12 as well which showed normal appearing ovaries. On presentation today, she is feeling fairly well. She was found to have a cardiomyopathy for whichshe has seen Dr. Orourke and is on Toprol. It is not clear if this was related to the prior chemotherapy. The most recent echo in 04/28, showed an LVEF of 60%. She is trying to lose some weight andhas lost a few pounds. She has some fatigue and wonders of the beta dmitry is contributing. She does think she feels less SOB since being on this. She is not working. No areas of pain. Review of Systems Constitutional: Positive for fatigue. Negative for fever, chills, activity change, appetite change and unexpected weight change. HENT: Negative. Eyes: Negative. Respiratory: Negative. Cardiovascular: Negative. Gastrointestinal: Negative. Genitourinary: Negative. Musculoskeletal: Negative. Skin: Negative. Neurological: Negative. Hematological: Negative. Psychiatric/Behavioral: Negative. Objective: Physical Exam Vitals reviewed. Constitutional: She is oriented to person, place, [...] range of motion. She exhibits no edema and no tenderness. Lymphadenopathy: She has no cervical adenopathy. She has no axillary adenopathy. Right: No supraclavicular adenopathy present. Left: No supraclavicular adenopathy present. Neurological: She is alert and oriented to person, place, and time. No cranial nerve deficit. Coordination normal. Skin: Skin is warm and dry. No rash noted. No erythema. Psychiatric: She has a normal mood and affect. Her behavior is normal. Labs: BUN/Cr - 12/0.8. Lytes and LFTs unremarkable. Tot chol - 205/HDL - 60/LDL - 115, Trig - 124, Vit D - 21.1. HgbA1C - 6.6 Mammogram, MRI and US results reviewed - see problem list above Assessment and Plan: Ms. Hernández is a 51 yo female with a h/o left breast cancer as above. 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 It was hormone receptor and her-2/yeyo negative. She received adjuvant chemotherapy with AC and radiation and completed all therapy in 11/20. Clinically, she seems to be doing well from this perspective. As noted, she is positive for BRCA-1 mutation. She has seen Dr. Chamberlain and to this point decided against prophylactic oophorectomy. She had a transvaginal US done which showed normal appearing ovaries. She is planning to contact Dr. Chamberlain to discuss that result and f/u. She is also concerned about her daughter and wonders about the appropriate time for her to consider testing. She is currently 18 yo. I will contact the [facility] about that. We talked about screening colonoscopy which she is due for as she has turned 51. She says that she received a notice from her PCP to this effect but has not followed up yet. She will discuss with Michelle Silveira. documented in this encounter Plan of Treatment Upcoming Encounters Date Type Department Care Team (Late st Contact Info) Description 03/27/2024 11:00 AM EDT Office Visit Hematology/Oncology at [address] [phone] El Bernardo MD [facility] [place] [address] [address] HEMATOLOGY AND ONCOLOGY [place], [place] [address] 04/21/2024 8:00 AM EST Appointment Mammography[place] [address] HEMATOLOGY AND ONCOLOGY [place], [place] [id number] documented as of this encounter Visit Diagnoses Diagnosis Breast cancer- Primary Malignant neoplasm of breast (female), unspecified site BRCA gene positive Genetic susceptibility to malignant neoplasm of breast documented in this encounter Care Teams Oracle Solutions Architect Relationship Specialty Start Date End Date Michelle Silveira PA PCP - General 05/09/10 08/04/15 documented as of this encounter
--- OUTSIDE RECORDS SUMMARY | 2024-02-27 12:46 | XMS_ITS | Encounter Summary ---
Author Organization [facility] Address [facility] [place] [address] Care Team Providers Care Lighthouse Keeper Name Role Phone Raoul Michelle MAY Primary Care Provider [phone] Encounter Details Date Type Department Care Team (Latest Contact Info) Description 06/24/2012 1:27 PM EST - 06/24/2012 11:59 PM EST Hospital Encounter Mammography at [facility] [place] [address] CLINIC, DR JAN Bernardo, El Mariee MD [facility] [place] [address] Malignant neoplasm of breast (female), unspecified site Discharge Disposition: Home Social History Tobacco Use [...] Sig Dispensed Refills Start Date End Date terconazole (TERAZOL 7) 0.4 % vaginal creamIndications:Yeast infection Place 1 applicator vaginally nightly. 45 g 0 06/04/2012 06/01/2013 LORazepam (ATIVAN) 1 mg tablet Take 1 tablet by mouth. Take 1 mg ativan 30 minutes prior to breast MRI 1 tablet 0 04/23/2012 06/27/2012 metoprolol succinate (TOPROL-XL) 25 mg 24 hr tablet Take 25 mg by mouth daily. 06/27/2012 Estradiol (VAGIFEM) [address] 1 tablet vaginally twice a week. 8 tablet 11 12/17/2011 01/21/2013 ibuprofen (ADVIL;MOTRIN) 200 mg tablet Take 800 mg by mouth every 6 hours as needed. 07/03/2013 LORazepam (ATIVAN) 1 mg tablet Take 1 mg by mouth nightly as needed. Reported on 10/12/2016 03/11/2017 documented as of this encounter Plan of Treatment Upcoming Encounters Date Type Department Care Team (Late st Contact Info) Description 03/27/2024 11:00 AM EDT Office Visit Hematology/Oncology at [address] [phone] El Bernardo MD [facility] [place] [address] [address] HEMATOLOGY AND ONCOLOGY [place], [place] [address] 04/21/2024 8:00 AM EST Appointment Mammography[place] [address] [address] HEMATOLOGY AND ONCOLOGY [place], [place] [phone] documented as of this encounter Procedures Procedure Name Priority Date/Time Associated Diagnosis Comments MAMMO SCREENING CAD BILATERAL Routine 06/24/2012 2:01 PM EST Malignant neoplasm of breast (female), unspecified site documented in this encounter Results * Mammo digital bilateral Screening with CAD (06/24/2012 2:01 PM EST) Anatomical Region Laterality Modality Breast Bilateral Mammography 06/24/2012 2:01 PM EST Narrative 06/26/2012 9:42 AM EST BILATERAL MAMMOGRAPHY ?? REASON FOR EXAM: Screening. ??History of Left breast cancer. ??Status post lumpectomy and radiation. ??BRCA - 1 positive. ? TECHNIQUE: Cranio-caudal (CC) and mediolateral oblique (MLO) views of both breasts obtained with direct digital capture. The exam was evaluated by CAD Version 8.3.17. ??In addition to the routine 2D imaging this exam was also performed with 3D tomographic imaging in MLO and CC projections. ?? FINDINGS: This is a negative mammogram (ACR Category 1). There is a stable fibroglandular pattern without significant change as compared to prior studies. There is no mammographic evidence of cancer. ? The breasts are of scattered density. ? There are post-surgical and post-radiation changes in the Left breast. ? CONCLUSION ?? This is a NEGATIVE mammogram (ACR Category 1). Routine screening mammography is recommended with the frequency dependent on the patient's age and breast cancer risk factors. ?? A letter has been sent to this patient by [facility]. Procedure Note Ida Mendoza MD - 07/01/2012 BILATERAL MAMMOGRAPHY REASON FOR EXAM: Screening. History of Left breast cancer. Status post lumpectomy and radiation. BRCA - 1 positive. TECHNIQUE: Cranio-caudal (CC) and mediolateral oblique (MLO) views of both breasts obtained with direct digital capture. The exam was evaluated byCurrenseeD Version 8.3.17. In addition to the routine 2D imaging this exam was also performed with 3D tomographic imaging in MLO and CC projections. FINDINGS: This is a negative mammogram (ACR Category 1). There is a stable fibroglandular pattern without significant change as compared to priorstudies. There is no mammographic evidence of cancer. The breasts are of scattered density. There are post-surgical and post-radiation changes in the Left breast. CONCLUSION This is a NEGATIVE mammogram (ACR Category 1). Routine screeningmammography is recommended with the frequency dependent on the patient's age and breastcancer risk factors. A letter has been sent to this patient by the [facility]. El Bernardo MD IMG MAMMO ORDERABLES documented in this encounter Visit Diagnoses Diagnosis Malignant neoplasm of breast (female), unspecified site documented in this encounter Care Teams Lighthouse Keeper Relationship Specialty Start Date End Date Michelle Silveira PA PCP - General 05/09/10 08/04/15 documented as of this encounter
--- OUTSIDE RECORDS SUMMARY | 2024-02-27 12:46 | XMS_ITS | Encounter Summary ---
Author Organization [facility] Address [facility] [place] [address] Care Team Providers Care Cold Saw Operator Name Role Phone Raoul Michelle YADIRA Primary Care Provider [phone] Reason for Visit * Reason Comments Gynecologic Exam Encounter Details Date Type Department Care Team ([facility] st Contact Info) Description 03/18/2013 1:00 PM EDT Follow-Up Gynecology [place] [address] Carly Chamberlain MD [facility] [place] [address] BRCA1 positive Discharge Disposition: Home Social History [...] Sign Reading Time Taken Comments Blood Pressure 110/60 03/18/2013 1:02 PM EDT Pulse - - Temperature - - Respiratory Rate - - Oxygen Saturation - - Inhaled Oxygen Concentration - - Weight 84.8 kg (187 lb) 03/18/2013 1:02 PM EDT Height 165.7 cm (5' 5.25) 03/18/2013 1:02 PM ED T Body Mass Index 30.88 03/18/2013 1:02 PM EDT documented in this encounter Progress Notes * Antony Warner MD - 03/18/2013 1:14 PM EDT Subjective: Patient ID: Rebeca Hernández is a 52 y.o. female here for annual exam and to discuss whether she should have a RRSO. Patient Active Problem List Diagnosis Code ??? Breast cancer 174.9 ??? Depression 311 ??? Chest pain 786.50 ??? Cardiomyopathy 425.4 ??? GERD (gastroesophageal reflux disease) 530.81 ??? Palpitations 785.1 ??? S/P TKR (total knee replacement) V43.65 ??? BRCA1 positive V84.01 ??? Nevus 216.9 HPI Rebeca Hernández returns today for annual screen making technician evaluation. She has had chemotherapy induced menopause, with last bleeding occurring in February of 2008. She has not had any bleeding since then. Shehas no hot flashes. Other than vaginal dryness, she has no screen making technician complaints. Rebeca is a 52-year-old woman who is status post a left breast lumpectomy and sentinal lymphadenectomy 02/19. 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 All margins were greater than 1 cm. Zero of four sentinel nodes were positive. On 03/28/05, she began adjuvant chemotherapy (AC) and completed this 07/2005. She completed XRT November 2005. Her breast cancer was ER/WI and HER-2 negative. She has tested positive for a BRCA-1 mutation. Russ saw Ms. Hernández in 2008, at which time they discussed surveillance vs RRSO. She continues to worry about what she should do about her ovarian cancer risk. She previously felt that she would have a BSO once she was 51, but now that she is 52 she isn't sure what she wants to do. She doesn't necessary have any concerns about the surgery except for the concern about post-op nausea 2/2 opioids. No new cancers in her family members. She has not had a pelvic US for over a year. She walks daily. She did not have a bilateral mastectomy, and is having her mammograms. Current Outpatient Prescriptions on File Prior to Visit Medication Status Sig Dispense Refill ??? Estradiol (VAGIFEM) 10 mcg vaginal tablet Active Place 1 tablet vaginally twice a week. 8 tablet 1 ??? epiNEPHrine (EPIPEN) 0.3 mg/0.3 mL (1:1,000) injection Active Inject 0.3 mLs into the muscle once as needed for 1 dose. 0.3 mL 1 ??? valACYclovir (VALTREX) 500 mg tablet Active Take 500 mg by mouth 2 times daily. ??? fluticasone (FLONASE) 50 mcg/actuation nasal spray Active 2 sprays by Each Nare route daily. 16g 12 ??? montelukast (SINGULAIR) 10 mg tablet Active Take 1 tablet by mouth nightly. 30 tablet 12 ??? ibuprofen (ADVIL;MOTRIN) 200 mg tablet Active Take 800 mg by mouth every 6 hours as needed. ??? LORazepam (ATIVAN) 1 mg tablet Active Take 1 mg by mouth nightly as needed. ??? olopatadine (PATANOL) 0.1 % ophthalmic solution Active Place 1 drop into both eyes 3 times daily as needed for Allergies. 5 mL 5 ??? Levocetirizine (XYZAL) 5 mg Tab Active Take 5 mg by mouth 2 times daily. 60 tablet 12 ??? metoprolol tartrate (LOPRESSOR) 25 mg tablet Discontinued Take 25 mg by mouth daily. ??? terconazole (TERAZOL 7) 0.4 % vaginal cream Active Place 1 applicator vaginally nightly. 45 g 0 Allergies Allergen Reactions ??? Tramadol Hives ??? Carvedilol Rash ??? Morphine Itching Extreme itching ??? Codeine Phosphate Rash ??? Penicillins Rash ??? Unknown (Unclassified Drug) Environmental alergies Hay fever ??? Vicodin (Hydrocodone-Acetaminophen) Rash Review of Systems: She requests refill on vagifem. Filed Vitals: 03/18/13 1302 BP: 110/60 Height: 165.7 cm (5' 5.25) Weight: 84.823 kg (187 lb) Objective: Physical Exam Gen: Rebeca Hernández appears very well, appropriate in dress and demeanor, NAD HEENT/Neck: no cervical or supraclavicular adenopathy; no thyromegaly. She is anicteric, appears well hydrated Lungs clear Heart RRR without murmurs Abdomen: soft, flat, non-distended, non-tender without abnormal masses, organomegaly or ascites Extremities: upper and lower extremities without edema Pelvic exam: Vaginal mucosa pink and moist. Cervix without lesions. Pap test not indicated on this exam. Bimanual exam reveals a retroflex uterus, no nodularity, abnormal masses, or tenderness. Assessment and Plan: Rebeca has a normal exam. We again discussed risks benefits and indications of RRSO. Her best option to reduce her risk of ovarian cancer is a RRSO, however she still isn't sure that she wants this procedure. As she isn't ready for a RRSO, we have recommended that she at least have a yearly screening ultrasound. We also discussed the removal of only the fallopian tubes to try to reduce some of the risk of development of tumor that may develop (although we don't have significant data for this in a menopausal patient). She knows that she can contact us at any time for a RRSO or RRO. We will plan on seeing her in a year for exam and pelvic US. Plan: schedule ultrasound ANTONY WARNER MD (Hematology and Oncology Fellow) Pager [phone] I saw and evaluated the patient with Dr. Warner, and I confirmed the history and physical findingsas outlined, and I agree with the note as written. Will schedule for ultrasound with Dr. Bradley. 30 minutes were spent with the patient, more than 50% of the total visit time was used for counseling and/or coordination of care. documented in this encounter Plan of Treatment Upcoming Encounters Date Type Department Care Team (Late st Contact Info) Description 03/27/2024 11:00 AM EDT Office Visit Hematology/Oncology at [address] [phone] El Bernardo MD [facility] [place] [address] Linda Tamayo [address] HEMATOLOGY [place] [address] 04/21/2024 8:00 AM EST Appointment Mammography/[place] [address] Linda Tamayo [address] HEMATOLOGY [place] [address] documented as of this encounter Visit Diagnoses Diagnosis BRCA1 positive Genetic susceptibility to malignant neoplasm of breast documented in this encounter Care Teams Cold Saw Operator Relationship Specialty Start Date End Date Michelle Silveira PA PCP - General 05/09/10 08/04/15 documented as of this encounter
--- OUTSIDE RECORDS SUMMARY | 2024-02-27 12:46 | XMS_ITS | Encounter Summary ---
Author Organization [facility] Address [facility] [place] [address] Care Team Providers Care Manager Of Program Name Role Phone Michelle Silveira Primary Care Provider [phone] Encounter Details Date Type Department Care Team (Late st Contact Info) Description 06/29/2013 4:24 PM EST - 06/29/2013 11:59 PM EST Hospital Encounter MRI at [facility] [place] [address] Social History Tobacco Use Types Packs/Day Years [...] Sig Dispensed Refills Start Date End Date ibuprofen (ADVIL;MOTRIN) 600 mg tablet Take 1 tablet by mouth every 6 hours as needed for Pain. 30 tablet 0 04/21/2013 03/11/2017 Estradiol (VAGIFEM) 10 mcg vaginal tabletIndications:[place] pause Place 1 tablet vaginally twice a week. 8 tablet 1 01/22/2013 08/25/2013 epiNEPHrine (EPIPEN) 0.3 mg/0.3 mL (1:1,000) injectionIndications:A llergic reaction Inject 0.3 mLs into the muscle once as needed for 1 dose. 0.3 mL 1 11/19/2012 11/26/2013 olopatadine (PATANOL) 0.1 % ophthalmic solutionIndications:Co njunctivitis, allergic Place 1 drop into both eyes 3 times daily as needed for Allergies. 5 mL 5 11/18/2012 11/26/2013 valACYclovir (VALTREX) 500 mg tablet Take 500 mg by mouth 2 times daily as needed. Reported on 10/12/2016 10/24/2016 fluticasone (FLONASE) 50 mcg/actuation nasal sprayIndications:Rhini tis, allergic 2 sprays by Each Nare route daily. 16 g 10/28/2012 11/26/2013 Levocetirizine (XYZAL) 5 mg TabIndications:Rhiniti s, allergic Take 5 mg by mouth 2 times daily. 60 tablet 10/28/2012 11/26/2013 ibuprofen (ADVIL;MOTRIN) 200 mg tablet Take 800 mg by mouth every 6 hours as needed. 07/03/2013 LORazepam (ATIVAN) 1 mg tablet Take 1 mg by mouth nightly as needed. Reported on 10/12/2016 03/11/2017 documented as of this encounter Miscellaneous Notes * Miscellaneous - Provider, Scanning - 07/06/2013 8:35 AM EST documented in this encounter Plan of Treatment Upcoming Encounters Date Type Department Care Team (Late st Contact Info) Description 03/27/2024 11:00 AM EDT Office Visit Hematology/Oncology at [address] [phone] El Bernardo MD [facility] [place] [address] Linda Tamayo [address] HEMATOLOGY AND ONCOLOGY [place], [place] [address] 04/21/2024 8:00 AM EST Appointment Mammography/[place] [address] Linda Tamayo [address] HEMATOLOGY AND ONCOLOGY [place], [place] [id number] documented as of this encounter Procedures Procedure Name Priority Date/Time Associated Diagnosis Comments MRI BREAST WWO CONTRAST BILAT Routine 06/29/2013 6:35 PM EST documented in this encounter Results * MRI breast diagnostic bilateral with/WO contrast (06/29/2013 6:35 PM EST) Anatomical Region Laterality Modality Breast Bilateral Magnetic Resonan ce 06/29/2013 6:35 PM EST Narrative 07/03/2013 8:19 AM EST BILATERAL BREAST MRI ON 06/29/13: ?? SUMMARY: ?? LEFT BREAST: BENIGN FINDING (BIRADS Category 2). Post-treatment/biopsy change only. ?? RIGHT BREAST: NEGATIVE (BIRADS Category 1). No suspicious enhancement to suggest breast cancer. ?? NARRATIVE: ?? Clinical indication: High risk screening. ?? Techniques: Multiplanar sequences were obtained pre- and post- gadolinium enhancement, to include SPGR weighted dynamic run-off and subtraction sequences obtained after the intravenous administration of 17ccs of Magnevist. Computer algorithm analysis for lesion detection and kinetic contrast enhancement curve analysis was performed, using Confirma software. ?? Background enhancement pattern (first post gadolinium images): None/Minimal (<25% breast). ?? Comparison studies: ??MRI dated: 06/24/12. ?? 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 ??Date of Diagnosis: 2004. ?? Axillary nodes: ??Visualization adequate bilaterally. ?? Benign appearing axillary nodes: Bilaterally. ?? Comments: Patient should consider screening mammography as MRI sensitivity for DCIS detection is limited. ?? Film and interpretation reviewed by the attending Procedure Note Jai Duque MD - 07/03/2013 BILATERAL BREAST MRI ON 06/29/13: SUMMARY: LEFT BREAST: BENIGN FINDING (BIRADS Category 2). Post-treatment/biopsychange only. RIGHT BREAST: NEGATIVE (BIRADS Category 1). No suspicious enhancement to suggest breast cancer. NARRATIVE: Clinical indication: High risk screening. Techniques: Multiplanar sequences were obtained pre- and post- gadolinium enhancement, to include SPGR weighted dynamic run-off and subtractionsequences obtained after the intravenous administration of 17ccs of Magnevist.Computer algorithm analysis for lesion detection and kinetic contrast enhancementcurve analysis was performed, using Confirma software. Background enhancement pattern (first post gadolinium images):None/Minimal (<25% breast). Comparison studies: MRI dated: 06/24/12. 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 Date of Diagnosis: 2004. Axillary nodes: Visualization adequate bilaterally. Benign appearing axillary nodes: Bilaterally. Comments: Patient should consider screening mammography as MRI sensitivityfor DCIS detection is limited. Film and interpretation reviewed by the attending El Bernardo MD IMG MRI ORDERABLES documented in this encounter Visit Diagnoses Not on filedocumented in this encounter Administered Medications Inactive Administered Medications - up to 3 most recent administrations Medication Order MAR Action Action Date Dose Rate Site gadopentetate dimeglumine (MAGNEVIST) 10 mmol/20 mL (469.01 mg/mL) injection 17 mL 17 mL, Intravenous, ONCE PRN, 1 dose, Starting on 06/29/13 at 1817, Until Sat06/29/13 at 1814, Per Protocol, Routine Given 06/29/2013 6:14 PM EST 17 mLs documented in this encounter Care Teams Manager Of Program Relationship Specialty Start Date End Date Michelle Silveira PA PCP - General 05/09/10 08/04/15 documented as of this encounter
--- OUTSIDE RECORDS SUMMARY | 2024-02-27 12:46 | XMS_ITS | Encounter Summary ---
Author Organization [facility] Address [facility] [place] [address] Care Team Providers Care Industrial Roofer Helper Name Role Phone Michelle Silveira YADIRA Primary Care Provider [phone] Reason for Visit * Reason Onset Date Comments Other 12/14/2011 Encounter Details Date Type Department Care Team (Late Contact Info) Description 12/14/2011 Telephone Gynecology [place] [address] Carly Solano MD [facility] [place] [address] Other Social History Tobacco Use Types Packs/Day [...] encounter Miscellaneous Notes * Telephone Encounter - Felicia Cardoso - 12/14/2011 11:30 AM EDT Please sign order. documented in this encounter Plan of Treatment Upcoming Encounters Date Type Department Care Team (Late Contact Info) Description 03/27/2024 11:00 AM EDT Office Visit Hematology/Oncology at [address] [phone] El Bernardo MD [facility] [place] [address] [address] HEMATOLOGY AND ONCOLOGY [place], [place] [phone] 04/21/2024 8:00 AM EST Appointment Mammography/[place] [address] HEMATOLOGY AND ONCOLOGY [place], [place] [phone] documented as of this encounter Visit Diagnoses Diagnosis BRCA1 positive- Primary Genetic susceptibility to malignant neoplasm of breast documented in this encounter Care Teams Industrial Roofer Helper Relationship Specialty Start Date End Date Michelle Silveira PA PCP - General 05/09/10 08/04/15 documented as of this encounter
--- OUTSIDE RECORDS SUMMARY | 2024-02-27 12:46 | XMS_ITS | Encounter Summary ---
Author Organization [facility] Address [facility] [place] [address] Care Team Providers Care Car Distributor Name Role Phone Raoul Michelle YADIRA Primary Care Provider [phone] Reason for Visit * Reason Comments Injections Encounter Details Date Type Department Care Team ([facility] st Contact Info) Description 01/01/2013 10:15 AM EDT Office Visit Allergy at [facility] [place] [address] ALLERGY, INJECTION Allergy to mites (Primary Dx); Allergic rhinitis due to pollen; Allergic rhinitis, cause unspecified; Allergy to dog dander Discharge Disposition: Home [...] Progress Notes * Ankita Guzmán LPN - 01/01/2013 10:09 AM EDT Rebeca Hernández has come into the Allergy Clinic for allergy injection. No reported problems with the last injections. Antihistamine taken as directed. Epipen brought to appointment. Injections given per Dr Swanson's orders. Injections given:Building Extract: Mix A (F&P Mite,Mold Mix) Dilution: Silver (0.22au/ml,1:1,000,000w/v ) Dose: 0.2cc Site: right arm sc Rxn: none Extract: Mix B (Arnol Grass,Cat,Tree Mix,Hansen Mix,Dog) Dilution: Silver (0.2bau/ml,0.1bau/ml,1:2,000,000w/v,1:2,000,000w/v,1,1,000,0000w/v) Dose: 0.2 cc Site: left arm sc Rxn: none Pt was observed here in the waiting area for 30 minutes. NO adverse side effects were noted. Pt ambulated from clinic in stable condition. documented in this encounter Plan of Treatment Upcoming Encounters Date Type Department Care Team (Late st Contact Info) Description 03/27/2024 11:00 AM EDT Office Visit Hematology/Oncology at [address] [phone] El Bernardo MD [facility] [place] [address] [address] HEMATOLOGY AND ONCOLOGY [place], [place] [address] 04/21/2024 8:00 AM EST Appointment Mammography/[place] [address] [address] HEMATOLOGY AND ONCOLOGY [place], [place] [address] documented as of this encounter Visit Diagnoses Diagnosis Allergy to mites- Primary Allergy, unspecified not elsewhere classified Allergic rhinitis due to pollen Allergic rhinitis, cause unspecified Allergy to dog dander Allergic rhinitis due to animal (cat) (dog) hair and dander documented in this encounter Care Teams Car Distributor Relationship Specialty Start Date End Date Michelle Silveira PA PCP - General 05/09/10 08/04/15 documented as of this encounter
--- OUTSIDE RECORDS SUMMARY | 2024-02-27 12:46 | XMS_ITS | Encounter Summary ---
Author Organization [facility] [place] [address] Care Team Providers Care Polo Coach Name Role Phone Raoul Michelle YADIRA Primary Care Provider [phone] Reason for Visit * Reason Comments Injections Encounter Details Date Type Department Care Team ([facility] st Contact Info) Description 12/25/2012 10:15 AM EDT Office Visit Allergy at [facility] [place] [address] ALLERGY, INJECTION Allergy to mites (Primary Dx); Allergic rhinitis, cause unspecified; Allergic rhinitis due to pollen Discharge Disposition: Home Social History [...] Progress Notes * Ankita Guzmán LPN - 12/25/2012 10:23 AM EDT Rebeca Fraooq [place] has come into the Allergy Clinic for allergy injection. No reported problems with the last injections. Antihistamine taken as directed. Epipen brought to appointment. Injections given per Dr Swanson's orders. Injections given:Building Extract: Mix A (F&P Mite,Mold Mix) Dilution: Silver (0.22au/ml,1:1,000,000w/v ) Dose: 0.1cc Site: left arm sc Rxn: none Extract: Mix B (Arnol Grass,Cat,Tree Mix,Alma Mix,Dog) Dilution: Silver (0.2bau/ml,0.1bau/ml,1:2,000,000w/v,1:2,000,000w/v,1,1,000,0000w/v) Dose: 0.1 cc Site: right arm sc Rxn: none Pt was observed here in the waiting area for 30 minutes. NO adverse side effects were noted. Pt ambulated from clinic in stable condition. documented in this encounter Plan of Treatment Upcoming Encounters Date Type Department Care Team (Late st Contact Info) Description 03/27/2024 11:00 AM EDT Office Visit Hematology/Oncology at [address] [phone] El Bernardo MD [facility] [place] [address] [address] HEMATOLOGY AND ONCOLOGY [place], [place] [address] 04/21/2024 8:00 AM EST Appointment Mammography/[place] [address] HEMATOLOGY AND ONCOLOGY [place], [place] [address] documented as of this encounter Visit Diagnoses Diagnosis Allergy to mites- Primary Allergy, unspecified not elsewhere classified Allergic rhinitis, cause unspecified Allergic rhinitis due to pollen documented in this encounter Care Teams Polo Coach Relationship Specialty Start Date End Date Michelle Silveira PA PCP - General 05/09/10 08/04/15 documented as of this encounter
--- OUTSIDE RECORDS SUMMARY | 2024-02-27 12:46 | XMS_ITS | Encounter Summary ---
Author Organization [facility] Address [facility] [place] [address] Care Team Providers Care Title Insurance Sales Representative Name Role Phone Raoul Michelle YADIRA Primary Care Provider [phone] Encounter Details Date Type Department Care Team (Latest Contact Info) Description 06/24/2012 10:43 AM EST - 06/24/2012 11:59 PM EST Hospital Encounter [place] [address] CLINIC, DR JAN Solano, Carly Dia MD [facility] [place] [address] Discharge Disposition: Home Social History Tobacco Use [...] AM EDT Office Visit Hematology/Oncology at [address] [phone] El Bernardo MD [facility] [place] [address] [address] HEMATOLOGY AND ONCOLOGY [place], [place] [phone] 04/21/2024 8:00 AM EST Appointment Mammography/[place] [address] [address] HEMATOLOGY AND ONCOLOGY [place], [place] [address] documented as of this encounter Procedures Procedure Name Priority Date/Time Associated Diagnosis Comments US TRANSVAGINAL NON OB Routine 06/24/2012 11:28 AM EST documented in this encounter Results * US Transvaginal non OB (06/24/2012 11:28 AM EST) Anatomical Region Laterality Modality Ultrasound 06/24/2012 11:2 8 AM EST Narrative 06/24/2012 12:17 PM EST ?Gynecological Report ? (Signed Final 06/24/2012 12:17 pm) Patient Info ID: ? [id number] ? : [birth year] (51 yrs) Name: ? TY HERNÁNDEZ ?Visit Date: 06/24/2012 11:16 am Performed By Performed By: ?Linda Ramirez [facility] Associate: ? Ervin LLANOS, Arya Adams Attending: ? Vane LLANOS, Linda Hooper Referred By: ? CARLY SOLANO MD Service(s) Provided UTV - Ultrasound - Transvaginal - [id number] ? [id number] Indications Positive BRC-1 Ovarian cancer surveillance ------- History ------- Age: ?? 51 Menses: ?Postmenopausal Hx of Cancer Breast cancer ------ Uterus ------ Uterus: ? Visualized Position: ?? Anteverted Size (cm) ?L: ??6 ? W: ?? 4.9 ?H: ??2.7 Vol (ml): ?41.6 Description: ?? No fibroids visualized. Endometrium Endometrium: ?Normal appearance Thickness(mm): ?3.4 [place] No fluid is visualized. Right Ovary Status: ?? Visualized Size (cm) ?L: ??1.6 ? W: ?? 1.1 ?H: ??0.5 Vol (ml): ?0.5 Morphology: ?Small post-menopausal desiree Left Ovary Status: ?? Visualized Size (cm) ?L: ??2.1 ? W: ?? 1.5 ?H: ??0.8 Vol (ml): ?1.3 Morphology: ?Small post-menopausal desiree Impression Ultrasound - Transvaginal - Summary 1. ??Small post-menopausal normal appearing ovaries. 2. ??Normal thickness endometrium. 3. ??No free fluid in the cul-de-sac. I ??viewed the images and agree with the above interpretation. Thank you for allowing us to participate in the care of TY HERNÁNDEZ. Please do not hesitate to call if you have any questions. ? Linda Cifuentes MD Electronically Signed Final Report ?? 06/24/2012 12:17 pm Film and interpretation reviewed by the attending Procedure Note Linda Cifuentes MD - 06/24/2012 Gynecological Report (Signed Final 06/24/2012 12:17 pm) Patient Info ID: [id number] : [birth year] (51 yrs) Name: TY HERNÁNDEZ Visit Date: 06/24/2012 11:16 am Performed By Performed By: Linda Ramirez [facility] Associate: Arya Mueller MD Attending: Linda Cifuentes MD Referred By: CARLY SOLANO MD Service(s) Provided UTV - Ultrasound - Transvaginal - [id number] Indications Positive BRC-1 Ovarian cancer surveillance ------- History ------- Age: 51 Menses: Postmenopausal Hx of Cancer Breast cancer ------ Uterus ------ Uterus: Visualized Position: Anteverted Size (cm) L: 6 W: 4.9 H: 2.7 Vol (ml): 41.6 Description: No fibroids visualized. Endometrium Endometrium: Normal appearance Thickness(mm): 3.4 [place] No fluid is visualized. Right Ovary Status: Visualized Size (cm) L: 1.6 W: 1.1 H: 0.5 Vol (ml): 0.5 Morphology: Small post-menopausal desiree Left Ovary Status: Visualized Size (cm) L: 2.1 W: 1.5 H: 0.8 Vol (ml): 1.3 Morphology: Small post-menopausal desiree Impression Ultrasound - Transvaginal - Summary 1. Small post-menopausal normal appearing ovaries. 2. Normal thickness endometrium. 3. No free fluid in the cul-de-sac. I viewed the images and agree with the above interpretation. Thank you for allowing us to participate in the care of TY HERNÁNDEZ. Please do not hesitate to call if you have any questions. Linda Cifuentes MD Electronically Signed Final Report 06/24/2012 12:17 pm Film and interpretation reviewed by the attending Carly Solano MD IMG US PELVIC ORDERA BLES documented in this encounter Visit Diagnoses Not on filedocumented in this encounter Care Teams Title Insurance Sales Representative Relationship Specialty Start Date End Date Michelle Silveira PA PCP - General 05/09/10 08/04/15 documented as of this encounter
--- OUTSIDE RECORDS SUMMARY | 2024-02-27 12:46 | XMS_ITS | Encounter Summary ---
Author Organization [facility] Address [facility] [place] [address] Care Team Providers Care Hide Spreader Name Role Phone Raoul Michelle YADIRA Primary Care Provider [phone] Encounter Details Date Type Department Care Team (Late st Contact Info) Description 06/24/2012 1:10 PM EST Clinical Support [facility] [place] [phone] Social History Tobacco Use Types Packs/Day Years [...] AM EDT Office Visit Hematology/Oncology at [address] [phone] El Bernardo MD [facility] [place] [address] Linda Tamayo [address] HEMATOLOGY AND ONCOLOGY [place], [place] [address] 04/21/2024 8:00 AM EST Appointment Mammography[place] [phone] Linda Tamayo [address] HEMATOLOGY AND ONCOLOGY [place], [place] [phone] documented as of this encounter Visit Diagnoses Not on filedocumented in this encounter Care Teams Hide Spreader Relationship Specialty Start Date End Date Michelle Silveira PA PCP - General 05/09/10 08/04/15 documented as of this encounter
--- OUTSIDE RECORDS SUMMARY | 2024-02-27 12:46 | XMS_ITS | Encounter Summary ---
Author Organization [facility] Address [facility] [place] [address] Care Team Providers Care Program Eligibility Specialist Name Role Phone Raoul Michelle MAY Primary Care Provider [phone] Encounter Details Date Type Department Care Team (Late st Contact Info) Description 12/17/2013 3:15 PM EDT Follow-Up Hematology Oncology at [address] [phone] Bettie Downing, CAREER DEVELOPMENT FACILITATOR [address] [facility] [place] [address] Breast cancer, left; BRCA1 positive; Cardiomyopathy; Depression; GERD (gastroesophageal reflux disease); Nevus Discharge Disposition: Home Social History Tobacco Use [...] Sign Reading Time Taken Comments Blood Pressure 117/71 12/17/2013 3:23 PM EDT Pulse 86 12/17/2013 3:23 PM EDT Temperature 36.6 ??C (97.9 ??F) 12/17/2013 3:23 PM ED T Respiratory Rate 18 12/17/2013 3:23 PM EDT Oxygen Saturation 98% 12/17/2013 3:23 PM EDT Inhaled Oxygen Concentration - - Weight 79.2 kg (174 lb 8 oz) 12/17/2013 3:23 PM EDT Height 167.6 cm (5' 5.98) 12/17/2013 3:23 PM ED T Body Mass Index 28.18 12/17/2013 3:23 PM EDT documented in this encounter Progress Notes * Bettie Downing, CAREER DEVELOPMENT FACILITATOR - 12/17/2013 3:42 PM EDT Images from the original note were not included. Subjective: Patient ID: Rebeca Hernández is a 52 y.o. female. HPI Comments: Rebeca is here today for new onset of R breast pain over the last few days. She was treated in 2004 for BRAC1 pos breast cancer on the L. She states the pain is uncomfortable and located pretty deep inside. Difficult to ascertain if it is chest wall vs. Breast tissue pain. Last mammogram nl done in June. Patient Active Problem List Diagnosis ??? Nevus ??? BRCA1 positive ??? Breast cancer A. S/P partial L mastectomy 2004 B. Treated with cytoxan and doxorubicin and radiation therapy. C. BRAC1 pos- bilat oophorectomy in 04/2013 prophylactically ??? Depression ??? Chest pain A. Stress test [facility] 06/28: exercised to 10.1 METs and [...] ??? S/P TKR (total knee replacement) Left Current Outpatient Prescriptions on File Prior to Visit Medication Sig Dispense Refill ??? diphenhydrAMINE (BENADRYL) 25 mg capsule Take 25 mg by mouth every 6 hours as needed. ??? fexofenadine (JANINA) 180 mg tablet Take 1 tablet by mouth daily. 30 tablet 12 ??? NASONEX 50 mcg/actuation [place] 2 sprays by Nasal route daily. 17 g 12 ??? azelastine (ASTELIN) 137 mcg nasal spray [...] mg by mouth nightly as needed. ??? EPINEPHrine (EPIPEN) 0.3 mg/0.3 mL (1:1,000) injection Inject 0.3 mLs into the muscle once as needed (difficulty breathing, throat swelling, loss of consciousness) for up to 1 dose. Call 911. 2 each 1 BP 117/71 Pulse 86 Temp 36.6 ??C (97.9 ??F) (Oral) Resp 18 Ht 167.6 cm (5' 5.98) Wt 79.153 kg (174 lb 8 oz) BMI 28.18 kg/m2 SpO2 98% Review of Systems Constitutional: Negative. Moderately severe seasonal allergies HENT: Negative. Eyes: Negative. Respiratory: Negative. Cardiovascular: Positive for chest pain (as above). Gastrointestinal: Negative. Genitourinary: Negative. Musculoskeletal: Negative. Neurological: Negative. Psychiatric/Behavioral: Negative. Objective: Physical Exam Constitutional: She is oriented to person, place, and time. She appears well- developed and well-nourished. HENT: Head: Normocephalic. Mouth/Throat: No oropharyngeal exudate. Eyes: Conjunctivae normal are normal. Pupils are equal, round, and reactive to light. Neck: Normal range of motion. Neck supple. Cardiovascular: Normal rate and regular rhythm. Pulmonary/Chest: Effort normal and breath sounds normal. She exhibits tenderness (R anterior thoracic). She exhibits no bony tenderness. Right breast exhibits inverted nipple (slight) and tenderness.Right breast exhibits no nipple discharge and no skin change. Left breast exhibits no inverted nipple. Breasts are asymmetrical (partial L mastectomy). Abdominal: Soft. She exhibits no mass. There is no tenderness. There is no guarding. Musculoskeletal: Normal range of motion. She exhibits no edema. Lymphadenopathy: She has no axillary adenopathy. Neurological: She is alert and oriented to person, place, and time. She has normal reflexes. Skin: Skin is warm and dry. Psychiatric: She has a normal mood and affect. Her behavior is normal. Judgment and thought contentnormal. Assessment and Plan: R breast pain: In this relatively high risk patient I believe it best to do both a CXR as well as repeat a mammogram. Plan for CXR here at [facility] today and for mammogram to be scheduled down at [facility] as possible since her previous studies have been down there. Will fwup by phone next week. Bettie Downing, MSN, LEGAL EXAMINER, AOCN Hematology/Oncology Nurse Practitioner [place], [place] [phone] documented in this encounter Plan of Treatment Upcoming Encounters Date Type Department Care Team (Late st Contact Info) Description 03/27/2024 11:00 AM EDT Office Visit Hematology/Oncology at [address] [phone] El Bernardo MD [facility] [place] [address] Linda Tamayo [address] HEMATOLOGY AND ONCOLOGY [place], [place] [id number] 04/21/2024 8:00 AM EST Appointment Mammography[place] [address] Linda Tamayo [address] HEMATOLOGY AND ONCOLOGY [place], [place] [phone] documented as of this encounter Visit Diagnoses Diagnosis Breast cancer, left Malignant neoplasm of breast (female), unspecified site BRCA1 positive Genetic susceptibility to malignant neoplasm of breast Cardiomyopathy Other primary cardiomyopathies Depression Depressive disorder, not elsewhere classified GERD (gastroesophageal reflux disease) Esophageal reflux Nevus Benign neoplasm of skin, site unspecified documented in this encounter Care Teams Program Eligibility Specialist Relationship Specialty Start Date End Date Michelle Silveira PA PCP - General 05/09/10 08/04/15 documented as of this encounter
--- OUTSIDE RECORDS SUMMARY | 2024-02-27 12:46 | XMS_ITS | Encounter Summary ---
Author Organization [facility] Address [facility] [place] [address] Care Team Providers Care Information Security Systems Instructor Name Role Phone Raoul Michelle MAY Primary Care Provider [phone] Encounter Details Date Type Department Care Team (Latest Contact Info) Description 06/29/2013 3:34 PM EST - 06/29/2013 11:59 PM EST Hospital Encounter Mammography at [facility] [place] [address] CLINIC, DR JAN Bernardo, El Mariee MD [facility] [place] [address] Malignant neoplasm of breast (female), unspecified site; Genetic susceptibility to malignant neoplasm of breast Discharge Disposition: Home [...] 04/21/2013 03/11/2017 Estradiol (VAGIFEM) 10 mcg vaginal tabletIndications:[place] [address] 1 tablet vaginally twice a [...] Each Nare route daily. 16 g 12 10/28/2012 11/26/2013 Levocetirizine (XYZAL) 5 mg TabIndications:Rhiniti s, allergic Take 5 mg by mouth 2 times daily. 60 tablet 12 10/28/2012 11/26/2013 ibuprofen (ADVIL;MOTRIN) 200 mg tablet [...] AM EDT Office Visit Hematology/Oncology at [address] [phone] El Bernardo MD [facility] [place] [address] Linda Tamayo [address] HEMATOLOGY AND ONCOLOGY [place], [place] [address] 04/21/2024 8:00 AM EST Appointment Mammography/[place] [address] Linda Tamayo [address] HEMATOLOGY AND ONCOLOGY [place], [place] [address] documented as of this encounter Procedures Procedure Name Priority Date/Time Associated Diagnosis Comments MAMMO SCREENING CAD BILATERAL Routine 06/29/2013 3:52 PM EST Malignant neoplasm of breast (female), unspecified site Genetic susceptibility to malignant neoplasm of breast documented in this encounter Results * Mammo digital bilateral Screening with CAD (06/29/2013 3:52 PM EST) Anatomical Region Laterality Modality Breast Bilateral Mammography 06/29/2013 3:52 PM EST Narrative 06/30/2013 9:21 AM EST Reason for Exam: Screening Technique: [...] breasts are of scattered density. There are postsurgical changes in the Left breast. CONCLUSION: This is a NEGATIVE mammogram (ACR Category 1). Routine screening mammography is recommended with the frequency dependent upon the patients age and breast cancer risk factors. A letter has been sent to this patient by the breast imaging center. Procedure Note Savannah Sandhu MD - 06/30/2013 Reason for Exam: Screening Technique: Craniocaudal (CC) and Medio-lateral Oblique (MLO) views of both breasts obtained with direct digital capture. The exam was evaluated by CAD version 8.3.17. Findings: This is a negative mammogram (ACR Category 1). There is a stablefibroglandular pattern without significant change from prior studies. There is no mammographic evidence of cancer. The breasts are of scattered density. There are postsurgical changes in the Left breast. CONCLUSION: This is a NEGATIVE mammogram (ACR Category 1). Routine screening mammography is recommended with the frequency dependentupon the patients age and breast cancer risk factors. A letter has been sent to this patient by the breast imaging center. El Bernardo MD IMG MAMMO ORDERABLES documented in this encounter Visit Diagnoses Diagnosis Malignant neoplasm of breast (female), unspecified site Genetic susceptibility to malignant neoplasm of breast documented in this encounter Care Teams Information Security Systems Instructor Relationship Specialty Start Date End Date Michelle Silveira PA PCP - General 05/09/10 08/04/15 documented as of this encounter
--- OUTSIDE RECORDS SUMMARY | 2024-02-27 12:46 | XMS_ITS | Encounter Summary ---
Author Organization [facility] Address [facility] [place] [address] Care Team Providers Care Composite Mechanic Name Role Phone Raoul Michelle YADIRA Primary Care Provider [phone] Encounter Details Date Type Department Care Team (Late st Contact Info) Description 07/03/2013 2:30 PM EST Follow-Up Hematology Oncology at [address] [phone] El Bernardo MD [facility] [place] [address] Malignant 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 (Primary Dx) Discharge Disposition: Home Social History [...] Sign Reading Time Taken Comments Blood Pressure 103/60 07/03/2013 2:12 PM EST Pulse 96 07/03/2013 2:12 PM EST Temperature 36.8 ??C (98.3 ??F) 07/03/2013 2:12 PM ES T Respiratory Rate 18 07/03/2013 2:12 PM EST Oxygen Saturation 97% 07/03/2013 2:12 PM EST Inhaled Oxygen Concentration - - Weight 80.7 kg (178 lb) 07/03/2013 2:12 PM EST Height - - Body Mass Index 28.73 04/21/2013 12:46 PM EST documented in this encounter Progress Notes * El Bernardo MD - 07/03/2013 8:59 AM EST Subjective: Patient ID: Rebeca Hernández is a 52 y.o. female. Problem List: 1. Cancer of [...] with heterologous chondroid differentiation Tumor Grade: High Ryhobi-Xexih-Louynffwuu Score: 9 Tubular Differentiation: 3 Mitotic Rate: [...] carcinoma: 4 Estrogen/Progestin receptors: ER immunoreactivity: Negative CT immunoreactivity: Negative HER2/yeyo expression by FISH: NEGATIVE [...] same BRCA1 alteration found in her mother ([id number]). Prophylactic BSO 04/2013. Path - Right and left fallopian tubes and ovaries (bilateral salpingo-oophorectomy): No evidence of malignancy. 3. OFFICE INSPECTOR History: The patient is G4, P3 with [...] - 60% with no regional wall motion bnormalities. HPI Ms. Hernández is seen in f/u [...] today, she is feeling fairly well. She is noticing some hormonal symptoms. Her appetite is ok. She has been losing weight which is intentional. She had borderline BSs and made some dietary changes and began to exercise more. Her recent HgbA1c was lower and she has felt better. No particular areas of pain. She is on bactrim and pyridium for a UTI and has a headache which she thinksmay be related to one of those medications. She has a h/o MHAs. Review of Systems Constitutional: Negative for fever, chills, activity change, appetite change, fatigue and unexpected weight change. Eyes: Negative. Respiratory: Negative. Cardiovascular: Negative. Gastrointestinal: Negative. Genitourinary: Negative. Musculoskeletal: Negative. Skin: Negative. Neurological: Positive for headaches. Hematological: Negative. Psychiatric/Behavioral: Negative. Objective: Physical Exam [...] and affect. Her behavior is normal. Labs: not done Mammogram and MRI results reviewed - see problem list above Assessment and Plan: Ms. Hernández is a 52 yo female with a h/o left breast cancer as above. 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 It was hormone receptor and her-2/yeyo negative. She received adjuvant chemotherapy with AC and radiation and completed all therapy in 11/20. Clinically, she seems to be doing well from this perspective. I will see her again in a year with af/u mammogram and breast MRI. As noted, she is positive for BRCA-1 mutation. She is s/p prophylactic oophorectomy. She is also concerned about her daughter and wonders about the appropriate time for her to consider testing. She is currently 20 yo. I gave her a brochure for the Familial Cancer Program. She will discuss this withher daughter who will be leaving soon for [employer] [place] for three years as her is in the . We discussed that if she were positive, it would generally be recommended that she begin screening in her mid 20s so that if she wanted to wait until she were back from [facility], that would be ok. We talked about screening colonoscopy which she is due for. Given that she has recently undergone oophorectomy, she wants to wait but will discuss further with Michelle Silveira, her PCP. documented in this encounter Plan of Treatment Upcoming Encounters Date Type Department Care Team (Late st Contact Info) Description 03/27/2024 11:00 AM EDT Office Visit Hematology/Oncology at [address] [phone] El Bernardo MD [facility] [place] [address] [address] HEMATOLOGY AND ONCOLOGY [place], [place] [address] 04/21/2024 8:00 AM EST Appointment Mammography/[place] [address] [address] HEMATOLOGY AND ONCOLOGY [place], [place] [id number] documented as of this encounter Visit Diagnoses Diagnosis Malignant 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- Primary Malignant neoplasm of breast (female), unspecified site documented in this encounter Care Teams Composite Mechanic Relationship Specialty Start Date End Date Michelle Silveira PA PCP - General 05/09/10 08/04/15 documented as of this encounter
--- OUTSIDE RECORDS SUMMARY | 2024-02-27 12:46 | XMS_ITS | Encounter Summary ---
Author Organization [facility] Address [facility] [place] [address] Care Team Providers Care Survey Field Technician Name Role Phone Michelle Silveira YADIRA Primary Care Provider [phone] Reason for Visit * Reason Comments Allergy Testing Encounter Details Date Type Department Care Team ([facility] st Contact Info) Description 11/18/2012 10:00 AM EDT [place] [address] Ana Swanson MD [facility] [place] [address] Rhinitis (Primary Dx); Conjunctivitis, allergic; Rhinitis, allergic; Allergic reaction Discharge Disposition: Home Social History Tobacco Use [...] Sign Reading Time Taken Comments Blood Pressure 116/77 11/18/2012 10:15 AM EDT Pulse 84 11/18/2012 10:15 AM EDT Temperature - - Respiratory Rate 18 11/18/2012 10:15 AM EDT Oxygen Saturation - - Inhaled Oxygen Concentration - - Weight 84.8 kg (187 lb) 11/18/2012 10:15 AM EDT Height 167.6 cm (5' 6) 11/18/2012 10:15 AM EDT Body Mass Index 30.18 11/18/2012 10:15 AM EDT documented in this encounter Patient Instructions * Patient Instructions* Ana Swanson MD - 11/18/2012 11:10 AM EDT FLONASE 2 SPRAYS EACH NOSTRIL DAILY PATANOL EYE DROPS 1 DROP EACH EYE EVERY 8 HRS NEEDED XYZAL MAY TAKE TWICE A DAY MAY TAKE SINGULAIR IF OK START IT- CALL IN 2 WEEKS IF YOU HAVE NOT HEARD FROM US RTC 4 MOS documented in this encounter Progress Notes * Ana Swanson MD - 11/18/2012 10:12 AM EDT Subjective: Patient ID: Rebeca Hernández is a 51 y.o. female. HPIHere for allergy skin testing to be done. Has not been taking Flonase or any antihistamine since she has had minimal rhinitis symptoms recently. Dr Orourke has said that if immunotherapy is started that Rebeca can stop Toprol 1-2 days prior. Active Ambulatory Problems Diagnosis Date Noted ??? [...] to Visit Medication Sig Dispense Refill ??? valACYclovir (VALTREX) 500 mg tablet Take 500 mg by mouth 2 times daily. ??? fluticasone (FLONASE) 50 mcg/actuation nasal spray 2 sprays by Each Nare route daily. 16 g 12 ??? montelukast (SINGULAIR) 10 mg tablet Take 1 tablet by mouth nightly. 30 tablet 12 ??? Levocetirizine (XYZAL) 5 mg Tab Take 5 mg by mouth 2 times daily. 60 tablet 12 ??? metoprolol tartrate (LOPRESSOR) 25 mg tablet Take 25 mg by mouth daily. ??? terconazole (TERAZOL 7) 0.4 % vaginal cream Place 1 applicator vaginally nightly. 45 g 0 ??? Estradiol (VAGIFEM) [address] 1 tablet vaginally twice a week. 8 tablet 11 ??? ibuprofen (ADVIL;MOTRIN) 200 mg tablet Take 800 mg by mouth every 6 hours as needed. ??? LORazepam (ATIVAN) 1 mg tablet Take 1 mg by mouth nightly as needed. Allergies Allergen Reactions ??? Carvedilol Rash ??? Morphine Itching Extreme itching ??? Codeine Phosphate Rash ??? Penicillins Rash ??? Unknown (Unclassified Drug) Environmental alergies Hay fever ??? Vicodin (Hydrocodone-Acetaminophen) Rash Review of Systems HENT: Negative for congestion and rhinorrhea. All other systems reviewed and are negative. Objective: Physical Exam Constitutional: No distress. Neurological: She is alert. Skin: No rash noted. Psychiatric: She has a normal mood and affect. Filed Vitals: 11/18/12 1015 BP: 116/77 Pulse: 84 Resp: 18 Height: 167.6 cm (5' 6) Weight: 84.823 kg (187 lb) Skin testing was performed and showed an intact histamine ( 11 mm wheal/22 mm flar ) and other testresults were as follows: saline0/0, dust mites DP 09/21 and DF 09/21, cat 3/4 weed mix 10/25, giant ragweed 09/21, jessica grass , grass mix , birch 03/26, dog 08/19, tree mix 05/04, aspergillus mix0/0, alternaria 10/22, elina 12/27, maple 10/24, johnson's quarter 10/26, pigweed 0/0 cocklebur 09/20, oak 09/23, beech 10/24, hickory 0/0, popla 0/0r, penicillium 09/21, cladosporium /6, and helminthosporium. 3/5 Total of 26 tests placed. Consistent with allergic rhinitis Assessment and Plan: 1. Rhinoconjunctivitis, allergic Skin testing today (see above ) is positive to tree,weed, and grass pollens, dog,cat,dust mites, and molds. Rebeca would like to initiate allergen immunotherapy since she has had chronic persistent symptomsof allergic rhinoconjunctivitis with varying response to medications. I discussed with her the risks and benefits of immunotherapy , and answered her questions; she signed a consent form indicating her wish to proceed with immunotherapy. She will need to take an antihistamine prior to her injections and bring in her Epipen at each injection appt. She has been prescribed the following medications for nasal and ocular symptoms: Xyzal 5 mg. 1-2 x/day Flonase 2 sen/day Patanol 1 drop every 8 hrs prn Singulair 10 mg hs ,if approved by her therapist We also discussed dust control measures and keeping her cat out of the bedroom. RTC 4 mos. 40 min visit, 25 min spent in face to face counseling with the pt on evaluation and treatment of allergic rhinoconjunctivitis documented in this encounter Procedure Notes * Provider, Scanning - 07/16/2013 3:19 PM ESTAssociated Order(s): SCAN DOC: ALLERGY documented in this encounter Plan of Treatment Upcoming Encounters Date Type Department Care Team (Late st Contact Info) Description 03/27/2024 11:00 AM EDT Office Visit Hematology/Oncology at [address] [phone] El Bernardo MD [facility] [place] [address] Linda Tamayo [address] HEMATOLOGY AND ONCOLOGY [place], [place] [address] 04/21/2024 8:00 AM EST Appointment Mammography[place] [address] Linda Tamayo [address] HEMATOLOGY AND ONCOLOGY [place], [place] [id number] documented as of this encounter Procedures Procedure Name Priority Date/Time Associated Diagnosis Comments ALLERGY SCAN 07/16/2013 3:19 PM EST documented in this encounter Results * SCAN DOC: ALLERGY (07/16/2013 3:19 PM EST) Narrative 07/16/2013 3:19 PM EST Procedure Note Provider, Scanning - 07/16/2013 3:19 PM EST Scanning Provider MEDIA MGR SCAN EXT O RDR/RSLT documented in this encounter Visit Diagnoses Diagnosis Rhinitis- Primary Chronic rhinitis Conjunctivitis, allergic Other chronic allergic conjunctivitis Rhinitis, allergic Allergic rhinitis, cause unspecified Allergic reaction Allergy, unspecified not elsewhere classified documented in this encounter Care Teams Survey Field Technician Relationship Specialty Start Date End Date Michelle Silveira PA PCP - General 05/09/10 08/04/15 documented as of this encounter
--- OUTSIDE RECORDS SUMMARY | 2024-02-27 12:46 | XMS_ITS | Encounter Summary ---
Author Organization [facility] [place] [address] Care Team Providers Care Steam Powerplant Supervisor Name Role Phone Michelle Silveira YADIRA Primary Care Provider [phone] Encounter Details Date Type Department Care Team (Late st Contact Info) Description 11/18/2012 [place] [address] Ana Swanson MD [facility] [address] ALLERGY [place] [address] Social History Tobacco Use Types Packs/Day Years [...] as of this encounter Progress Notes * Ana Swanson MD - 11/18/2012 12:09 PM EDT IMMUNOTHERAPY PRESCRIPTION AND PREPARATION NOTE [facility]; Allergy Clinic NAME: Rebeca Hernández : 1960 INSTRUCTIONS (REVIEW WITH PATIENT BEFORE EVERY SHOT): 1. 30 MINUTE WAIT 2. PEAK FLOW > xx BEFORE SHOTS 3. EPIPEN AVAILABLE ON DAY OF ALLERGY SHOT 4. 24 HOUR NON-SEDATING ANTI-HISTAMINE ON DAY OF ALLERGY SHOT 5. AVOID VIGOROUS EXERCISE ON DAY OF SHOT VIAL #1 Allergen and concentration Amount (ml) Final Concentration F Mite (farinae) 10,000 AU/ml 2 2,000 AU/ml P Mite (pteronyssinus) 10,000 AU/ml 2 2,000 AU/ml MOLD MIX 1:10 1 1:100 Diluent 5 Total 10 ml New RX X Refill Dilutions: 10 fold (yellow) x 100 fold (blue) x 1,000 fold (green) X Starting Vial: Starting Dose: 0.05 ml Frequency Duration VIAL #2 Allergen and concentration Amount (ml) Final Concentration jessica Grass 100,000 BAU/ml 0.2 2,000 BAU/ml Mcgraw Eastern Tree Mix 1:20 1 1:200 Mcgraw Sandra. [place] Mx 1:20 1 1:200 Cat 10,000 BAU/mL 1 1000 BAU/mL Dog 1:10 1 1:100 Diluent 5.8 Total 10 ml New RX X Refill Dilutions: 10 fold (yellow) x 100 fold (blue) x 1,000 fold (green) X Starting Vial: Starting Dose: 0.05 ml Frequency Duration Vial #3 Allergen and concentration Amount (ml) Final Concentration 1:50 1:100 Diluent 6 Total 10 ml New RX Refill Dilutions: 10 fold (yellow) 100 fold (blue) 1,000 fold (green) Starting Vial: Starting Dose: 0.05 ml Frequency Duration Sent to : [facility] Prepared by Mariluz Ng on 11/18/12. Checked by Dr. Swanson on 11/18/12. For billing purposes: each 10m buildomgl vial contains 37 doses for a total of 74 doses. documented in this encounter Plan of Treatment Upcoming Encounters Date Type Department Care Team (Late st Contact Info) Description 03/27/2024 11:00 AM EDT Office Visit Hematology/Oncology at [address] [phone] El Bernardo MD [facility] [place] [address] Linda Tamayo APRN [address] [place] [address] DR HEMATOLOGY [place] [address] 04/21/2024 8:00 AM EST Appointment Mammography/[place] [address] Linda Tamayo APRN [address] [place] [address] DR HEMATOLOGY [place] [address] documented as of this encounter Visit Diagnoses Not on filedocumented in this encounter Care Teams Steam Powerplant Supervisor Relationship Specialty Start Date End Date Michelle Silveira PA PCP - General 05/09/10 08/04/15 documented as of this encounter
--- OUTSIDE RECORDS SUMMARY | 2024-02-27 12:46 | XMS_ITS | Encounter Summary ---
Author Organization [facility] Address [facility] [place] [address] Care Team Providers Care Drapery Cutter Machine Name Role Phone Michelle Silveira Primary Care Provider [phone] Encounter Details Date Type Department Care Team (Latest Contact Info) Description 06/24/2012 2:05 PM EST - 06/24/2012 11:59 PM EST Hospital Encounter MRI at [facility] [place] [address] Malignant neoplasm of breast (female), unspecified site Social History Tobacco Use Types Packs/Day Years [...] Sign Reading Time Taken Comments Blood Pressure - - Pulse - - Temperature - - Respiratory Rate - - Oxygen Saturation - - Inhaled Oxygen Concentration - - Weight 88.5 kg (195 lb) 06/24/2012 6:19 AM EST Height - - Body Mass Index 33.47 12/14/2011 10:27 AM EDT documented in this encounter Medications at Time of Discharge [...] Notes * Miscellaneous - Provider, Scanning - 06/30/2012 9:13 AM EST documented in this encounter Plan of Treatment Upcoming Encounters Date Type Department Care Team (Late st Contact Info) Description 03/27/2024 11:00 AM EDT Office Visit Hematology/Oncology at [address] [address] El Bernardo MD [facility] [place] [address] HEMATOLOGY AND ONCOLOGY [place], [place] [address] 04/21/2024 8:00 AM EST Appointment Mammography/[place] [address] [address] HEMATOLOGY AND ONCOLOGY [place], [place] [id number] documented as of this encounter Procedures Procedure Name Priority Date/Time Associated Diagnosis Comments MRI BREAST WWO CONTRAST BILAT Routine 06/24/2012 3:18 PM EST Malignant neoplasm of breast (female), unspecified site documented in this encounter Results * MRI breast diagnostic bilateral with/WO contrast (06/24/2012 3:18 PM EST) Anatomical Region Laterality Modality Breast Bilateral Magnetic Resonan ce 06/24/2012 3:18 PM EST Narrative 06/26/2012 9:30 AM EST BILATERAL BREAST MRI ON 06/24/12: ?? SUMMARY: ?? LEFT BREAST: BENIGN FINDING (BIRADS Category 2). Post-treatment change only. ? RIGHT BREAST: NEGATIVE (BIRADS Category 1). No suspicious enhancement to suggest breast cancer. ? NARRATIVE: ?? Clinical indication: High risk screening. ?? Techniques: Multiplanar sequences were obtained pre- and post- gadolinium enhancement, to include SPGR weighted dynamic run-off and subtraction sequences obtained after the intravenous administration of 18ccs of Magnevist. Computer algorithm analysis for lesion detection and kinetic contrast enhancement curve analysis was performed, using Confirma software. ?? Background enhancement pattern (first post gadolinium images): None/Minimal (<25% breast). ?? Comparison studies: ??MRI dated: 05/18/11 and 05/17/10. ?? Axillary nodes: Visualization not adequate bilaterally. Procedure Note Jai Duque MD - 06/27/2012 BILATERAL BREAST MRI ON 06/24/12: SUMMARY: LEFT BREAST: BENIGN FINDING (BIRADS Category 2). Post-treatment changeonly. RIGHT BREAST: NEGATIVE (BIRADS Category 1). No suspicious enhancement to suggest breast cancer. NARRATIVE: Clinical indication: High risk screening. Techniques: Multiplanar sequences were obtained pre- and post- gadolinium enhancement, to include SPGR weighted dynamic run-off and subtractionsequences obtained after the intravenous administration of 18ccs of Magnevist.Computer algorithm analysis for lesion detection and kinetic contrast enhancementcurve analysis was performed, using Confirma software. Background enhancement pattern (first post gadolinium images):None/Minimal (<25% breast). Comparison studies: MRI dated: 05/18/11 and 05/17/10. Axillary nodes: Visualization not adequate bilaterally. El Bernardo MD IMG MRI ORDERABLES documented in this encounter Visit Diagnoses Diagnosis Malignant neoplasm of breast (female), unspecified site documented in this encounter Administered Medications Inactive Administered Medications - up to 3 most recent administrations Medication Order MAR Action Action Date Dose Rate Site gadopentetate dimeglumine (MAGNEVIST) 10 mmol/20 mL (469.01 mg/mL) injection 17.7 mL 17.7 mL (0.2 mL/kg/dose ? 88.5 kg), Intravenous, ONCE PRN, 1 dose, Starting on Sat06/24/12 at 0619, Until Sat06/24/12 at 1430, Per Protocol, Routine Given 06/24/2012 2:30 PM EST 18 mLs documented in this encounter Care Teams Drapery Cutter Machine Relationship Specialty Start Date End Date Michelle Silveira PA PCP - General 05/09/10 08/04/15 documented as of this encounter
--- OUTSIDE RECORDS SUMMARY | 2024-02-27 12:46 | XMS_ITS | Encounter Summary ---
Author Organization [facility] Address [facility] [place] [address] Care Team Providers Care Hospital Wellness Coordinator Name Role Phone Michelle Silveira YADIRA Primary Care Provider [phone] Reason for Visit * Reason Onset Date Comments Questions 05/29/2012 Encounter Details Date Type Department Care Team (Late st Contact Info) Description 05/29/2012 Telephone Cardiology at [address] [address] Jeevan Orourke MD [facility] [place] [address] Questions Social History Tobacco Use Types Packs/Day [...] encounter Miscellaneous Notes * Telephone Encounter - Chantelle Lagos LPN - 05/29/2012 1:50 PM EST Pt. Called c/o her throat and chest ache. Pt. Admits she has been singing/rehearsing more than usual. Pt. Denies, fever or pain raiating. Per Dr. Orourke..the patient. was called and reassured that pain unlikely cardiac. Pt. to follow up w/ PCP for further issues. documented in this encounter Plan of Treatment Upcoming Encounters Date Type Department Care Team (Late st Contact Info) Description 03/27/2024 11:00 AM EDT Office Visit Hematology/Oncology at [address] [address] El Bernardo MD [facility] [place] [address] [address] HEMATOLOGY AND ONCOLOGY [place], [place] [id number] 04/21/2024 8:00 AM EST Appointment Mammography/[place] [address] Linda Tamayo, [address] HEMATOLOGY AND ONCOLOGY [place], [place] [address] documented as of this encounter Visit Diagnoses Not on filedocumented in this encounter Care Teams Hospital Wellness Coordinator Relationship Specialty Start Date End Date Michelle Silveira PA PCP - General 05/09/10 08/04/15 documented as of this encounter
--- OUTSIDE RECORDS SUMMARY | 2024-02-27 12:46 | XMS_ITS | Encounter Summary ---
Author Organization [facility] Address [facility] [place] [address] Care Team Providers Care Foxpro Developer Name Role Phone Raoul Michelle YADIRA Primary Care Provider [phone] Reason for Visit * Reason Comments Injections Encounter Details Date Type Department Care Team ([facility] st Contact Info) Description 01/14/2013 2:30 PM EDT Office Visit Allergy at [facility] [place] [address] ALLERGY, INJECTION Allergy to mites (Primary Dx); [...] Progress Notes * Ankita Guzmán LPN - 01/14/2013 3:04 PM EDT Rebeca Hernández has come into the Allergy Clinic for allergy injection. No reported problems with the last injections. Antihistamine taken as directed. Epipen brought to appointment. Injections given per Dr Swanson's orders. Injections given:Building Extract: Mix A (F&P Mite,Mold Mix) Dilution: Silver (0.22au/ml,1:1,000,000w/v ) Dose: 0.2cc Site: left arm sc Rxn: none Extract: Mix B (Arnol Grass,Cat,Tree Mix,[place] Mix,Dog) Dilution: Silver (0.2bau/ml,0.1bau/ml,1:2,000,000w/v,1:2,000,000w/v,1,1,000,0000w/v) Dose: 0.2 cc Site:right arm sc Rxn: none Pt was observed here in the waiting area for 30 minutes. NO adverse side effects were noted. Pt ambulated from clinic in stable condition. documented in this encounter Plan of Treatment Upcoming Encounters Date Type Department Care Team (Late st Contact Info) Description 03/27/2024 11:00 AM EDT Office Visit Hematology/Oncology at [address] [phone] El Bernardo MD [facility] [place] [address] [address] [place] [address] 04/21/2024 8:00 AM EST Appointment Mammography/[place] [address] [address] HEMATOLOGY AND ONCOLOGY [place], [place] [address] documented as of this encounter Visit Diagnoses Diagnosis Allergy to mites- Primary Allergy, unspecified not elsewhere classified Allergic rhinitis, cause unspecified Allergic rhinitis due to pollen Allergy to cats Allergic rhinitis due to other allergen Allergy to dog dander Allergic rhinitis due to animal (cat) (dog) hair and dander documented in this encounter Care Teams Foxpro Developer Relationship Specialty Start Date End Date Michelle Silveira PA PCP - General 05/09/10 08/04/15 documented as of this encounter
--- OUTSIDE RECORDS SUMMARY | 2024-02-27 12:46 | XMS_ITS | Encounter Summary ---
Author Organization [facility] Address [facility] [place] [address] Care Team Providers Care Dietary Aide Cook Name Role Phone Raoul Michelle MAY Primary Care Provider [phone] Encounter Details Date Type Department Care Team (Late Contact Info) Description 04/23/2012 Orders Only Hematology Oncology at [address] [phone] Lupe Mustafa RN Social History Tobacco Use Types Packs/Day [...] AM EDT Office Visit Hematology/Oncology at [address] [phone] El Bernardo MD [facility] [place] [address] Linda Tamayo [address] HEMATOLOGY AND ONCOLOGY [place], [place] [address] 04/21/2024 8:00 AM EST Appointment Mammography/[place] [address] Linda Tamayo [address] HEMATOLOGY AND ONCOLOGY [place], [place] [id number] documented as of this encounter Visit Diagnoses Not on filedocumented in this encounter Care Teams Dietary Aide Cook Relationship Specialty Start Date End Date Michelle Silveira PA PCP - General 05/09/10 08/04/15 documented as of this encounter
--- OUTSIDE RECORDS SUMMARY | 2024-02-27 12:46 | XMS_ITS | Encounter Summary ---
Author Organization [facility] Address [facility] [place] [address] Care Team Providers Care Partition Making Machine Operator Name Role Phone Michelle Silveira YADIRA Primary Care Provider [phone] Reason for Visit * Reason Onset Date Comments Other 12/05/2012 Encounter Details Date Type Department Care Team (Late Contact Info) Description 12/05/2012 [place] [address] Ankita Guzmán LPN Other Social History Tobacco [...] Telephone Encounter - Ankita Guzmán LPN - 12/05/2012 8:52 AM EDT Talked with patient letting her know that her extract is in. She will be setting up an appointment to start shots. Also let her know that on day of injections that she needs to take a antihistamine and bring her epipen to the appointment. documented in this encounter Plan of Treatment Upcoming Encounters Date Type Department Care Team ([facility] Contact Info) Description 03/27/2024 11:00 AM EDT Office Visit Hematology/Oncology at [address] [phone] El Bernardo MD [facility] [place] [place] [address] [address] HEMATOLOGY AND ONCOLOGY [place], [place] [phone] 04/21/2024 8:00 AM EST Appointment Mammography/[place] [phone] Linda Tamayo[address] HEMATOLOGY AND ONCOLOGY [place], [place] [id number] documented as of this encounter Visit Diagnoses Not on filedocumented in this encounter Care Teams Partition Making Machine Operator Relationship Specialty Start Date End Date Michelle Silveira PA PCP - General 05/09/10 08/04/15 documented as of this encounter
--- OUTSIDE RECORDS SUMMARY | 2024-02-27 12:46 | XMS_ITS | Encounter Summary ---
Author Organization [facility] Address [facility] [place] [address] Care Team Providers Care Flooring Professional Name Role Phone Raoul Michelle YADIRA Primary Care Provider Reason for Visit * Reason Comments Skin Check Encounter Details Date Type Department Care Team (Late st Contact Info) Description 08/25/2012 9:00 AM EDT Office Visit Dermatology [address] [facility] [address] [place] [address] Miles Bowman MD [address], [place] [address] Nevus (Primary Dx) Social History Tobacco Use Types [...] Progress Notes * Miles Bowman MD - 08/25/2012 9:32 AM EDT Problem is: 1. Painful moles. 2. History of BCCA, right infraorbital fold October 2000. 3. History of breast CA status post chemotherapy and radiation therapy. Rebeca follows up and is concerned about a sore mole on the anterior neck and one on the left jawline. I had actually seen the left mid jawline nevus in September of 2010 and reassured her about the benign appearance. However, these are both often rubbed and irritated. Physical examination reveals two compound versus intradermal nevi present, one on the left mid jaw line and one on the mid anterior neck. They are light brown to alcocer, symmetrical. The anterior neck site is somewhat of a flat topped. Assessment and Plan: Compound versus intradermal nevi, left mid jaw line and mid anterior neck. a. Patient reassured about benign appearance of these. b. Because they are often rubbed and irritated, we will schedule a half an hour appointment for excision in the near future. Discussed surgical procedure with patient. c. The patient is a good surgical candidate. Copy: Mnajit Zavala documented in this encounter Plan of Treatment Upcoming Encounters Date Type Department Care Team (Late st Contact Info) Description 03/27/2024 11:00 AM EDT Office Visit Hematology/Oncology at [address] [phone] El Bernardo MD [facility] [place] [address] HEMATOLOGY AND ONCOLOGY [place], [place] [address] 04/21/2024 8:00 AM EST Appointment Mammography/[place] [address] [address] HEMATOLOGY AND ONCOLOGY [place], [place] [id number] documented as of this encounter Visit Diagnoses Diagnosis Nevus- Primary Benign neoplasm of skin, site unspecified documented in this encounter Care Teams Flooring Professional Relationship Specialty Start Date End Date Michelle Silveira PA PCP - General 05/09/10 08/04/15 documented as of this encounter
--- OUTSIDE RECORDS SUMMARY | 2024-02-27 12:46 | XMS_ITS | Encounter Summary ---
Author Organization [facility] [place] [address] Care Team Providers Care Supervisor Functional Testing Name Role Phone RaoulMichelle YADIRA Primary Care Provider [phone] Reason for Visit * Reason Comments Procedure Encounter Details Date Type Department Care Team (Late st Contact Info) Description 08/26/2012 2:30 PM EDT Office Visit Dermatology [address] [place] [address] [address] [place] [address] Miles Bowman MD [address], [place] [address] Nevus (Primary Dx) Social History Tobacco Use [...] Progress Notes * Miles Bowman MD - 08/26/2012 3:02 PM EDT Clinical Impression and Site: Intradermal versus compound nevi, site A mid anterior neck, site B is left mid jawline. Size: 6 mm both sites. Deep Suture: None. Surface Suture: 5-0 Ethilon. Followup: One week for suture removal and biopsy results. Indications for surgery, possible adverse outcomes, and activity restrictions discussed. Informed verbal consent was obtained. The skin surface was prepared with 4% chlorhexidine and draped in the usual sterile manner. Local anesthesia with 1% lidocaine, 1:100,000 epinephrine, and 0.1 mEq/mL bicarbonate. Using a #15 blade and 1-mm margins, an elliptical excision was carried out around both of the lesions, first site B and then site A. A total of a 1-cm excision was necessary to excise these with clear margins. Undermining performed peripherally. Hemostasis with electrodesiccation. Specimens were submitted to Pathology. Wound dressed, wound care reviewed. End length of suture line was total of 2 cm. Follow up in seven days for suture removal by Dr. Bowman in [facility]. Copy: Manjit Zavala Note: Reassured patient that both these appear benign; they do not appear to represent BCCA, which she has had on the right infraorbital fold in the past. documented in this encounter Procedure Notes * Provider, Scanning - 09/01/2012 2:33 PM EDTAssociated Order(s): SCAN DOC: SURGICAL PATHOLOGY documented in this encounter Plan of Treatment Upcoming Encounters Date Type Department Care Team (Late st Contact Info) Description 03/27/2024 11:00 AM EDT Office Visit Hematology/Oncology at [address] [phone] El Bernardo MD [facility] [place] [address] Linda Tamayo [address] HEMATOLOGY AND ONCOLOGY [place], [place] [address] 04/21/2024 8:00 AM EST Appointment Mammography/[place] [address] Linda Tamayo [address] HEMATOLOGY AND ONCOLOGY [place], [place] [phone] documented as of this encounter Procedures Procedure Name Priority Date/Time Associated Diagnosis Comments SURGICAL PATHOLOGY SCAN 09/01/2012 2:33 PM EDT documented in this encounter Results * SCAN DOC: SURGICAL PATHOLOGY (09/01/2012 2:33 PM EDT) Narrative 09/01/2012 2:33 PM EDT Procedure Note Provider, Scanning - 09/01/2012 2:33 PM EDT Scanning Provider MEDIA MGR SCAN EXT O RDR/RSLT documented in this encounter Visit Diagnoses Diagnosis Nevus- Primary Benign neoplasm of skin, site unspecified documented in this encounter Care Teams Supervisor Functional Testing Relationship Specialty Start Date End Date Michelle Silveira PA PCP - General 05/09/10 08/04/15 documented as of this encounter
--- OUTSIDE RECORDS SUMMARY | 2024-02-27 12:46 | XMS_ITS | Encounter Summary ---
Author Organization [facility] Address [facility] [place] [address] Care Team Providers Care Operating Room Technician Name Role Phone Raoul Michelle YADIRA Primary Care Provider [phone] Encounter Details Date Type Department Care Team (Late st Contact Info) Description 04/21/2013 2:10 PM EST - 04/21/2013 4:35 PM EST Surgery [place] [id number] Carly Chamberlain MD [facility] [place] [address] LAPAROSCOPY, REMOVAL OF ADNEXA (WRVU 11.35) Social History Tobacco Use Types Packs/Day Years [...] Sign Reading Time Taken Comments Blood Pressure 128/78 04/21/2013 12:46 PM EST Pulse 75 04/21/2013 12:46 PM EST Temperature 36.4 ??C (97.5 ??F) 04/21/2013 12:[address] Respiratory Rate 14 04/21/2013 12:46 PM EST Oxygen Saturation 99% 04/21/2013 12:46 PM EST Inhaled Oxygen Concentration - - Weight 84.8 kg (187 lb) 04/21/2013 12:46 PM EST Height 167.6 cm (5' 6) 04/21/2013 12:46 PM EST Body Mass Index 30.18 04/21/2013 12:46 PM EST documented in this encounter Discharge Instructions * Discharge Instructions* Pebbles Brady RN - 04/21/2013 6:36 PM EST POST ANESTHESIA INSTRUCTIONS Go home, rest, use caution on stairs. Change positions slowly. Do not smoke if you are alone. Diet light to regular as tolerated today. If nausea occurs start with clear liquids and progress slowly. No driving, operating machinery, alcoholic beverages and no important decisions for 24 hours. Monitor IV site for signs and symptoms of infection: increasing redness, swelling, foul drainage, if occurs contact M.D. Patients who have had endotrachial tubes (this tube, used by anesthesia department, is passed down your throat after you are asleep, to ensure safe air passage during your operation). A sore throat is normal due to the tube. Cold liquids or soothing lozenges will help ease the discomfort. The generalized muscle aches are due to the medication given to you just before the tube is inserted. As the medication wears off, you may develop muscle soreness, which usually goes away in 12-24 hours. * Patient Instructions* Ken Ellington MD - 04/21/2013 6:06 PM EST PATIENT DISCHARGE INSTRUCTIONS Gynecology Oncology phone number: [phone] Call your doctor if you develop: --A fever over 101 degrees --Severe pain --Heavy vaginal bleeding --Increasing pain, redness, or discharge at your incisions --It is normal to have light spotting from the vagina for a few weeks Activity level: No heavy lifting, pushing or pulling for 6 weeks. No sexual intercourse, no tampons, nothing in the vagina for 6 weeks. Diet: You may resume your regular diet. Be sure you drink plenty of fluids. If you are constipated or have not had a bowel movement in 3 days, please use milk of magnesia (or miralax) as directed over the counter. Driving: Do not drive until you are off of all narcotic medications and you are not feeling pain; usually about 2 weeks. Shower/Bath: Showering is fine. Short baths are OK but you should avoid having any abdominal incision submerged for more than 10-15 minutes for the next 2 weeks. Wound Care: Your incisions are closed with dissolvable stitches and have surgical glue on top of them. The glue will dissolve on its own over the next few weeks. Do not pick at or rub it. The stitches do not need to be removed since they dissolve on their own. Pain medications include Percocet and ibuprofen Please use ibuprofen 600 mg every 6 hours with food around the clock for the next several days and then after that use it only as needed. Please use the Percocet every 3-4 hours as needed for pain that breaks through the ibuprofen. documented in this encounter Medications at Time of Discharge Medication Sig Dispensed Refills Start Date End Date ibuprofen (ADVIL;MOTRIN) 600 mg tablet Take 1 tablet by mouth every 6 hours as needed for Pain. 30 tablet 0 04/21/2013 03/11/2017 OXYcodone-acetaminophe n (PERCOCET) 5-325 mg per tablet Take 1 tablet by mouth every 4 hours as needed for Pain. 20 tablet 0 04/21/2013 06/01/2013 Estradiol (VAGIFEM) 10 mcg vaginal tabletIndications:Kelsie pause Place [...] times daily. 60 tablet 12 10/28/2012 11/26/2013 terconazole (TERAZOL 7) 0.4 % vaginal creamIndications:Yeast infection Place 1 applicator vaginally nightly. 45 g 0 06/04/2012 06/01/2013 ibuprofen (ADVIL;MOTRIN) 200 mg tablet Take 800 mg by mouth every 6 hours as needed. 07/03/2013 LORazepam (ATIVAN) 1 mg tablet Take 1 mg by mouth nightly as needed. Reported on 10/12/2016 03/11/2017 documented as of this encounter Progress Notes * Pebbles Brady RN - 04/21/2013 8:42 PM EST Patient discharge to home. IV removed, site benign. My assessment remains unchanged from my previous assessment. RN Discussed pain management with patient, pain tolerable. Patient has all belongings and supplies needed. Patient received After Visit Summary and prescriptions. These were reviewed, patient verbalizes understanding of AVS. All questions answered. Patient encouraged to call with questions or concerns. Patient discharged to home with family documented in this encounter H&P Notes * Nga Triplett MD - 04/21/2013 3:45 PM EST Gynecology H & P Problem List: There are no hospital problems to display for this patient. Active Non-Hospital Problems Diagnosis ??? Nevus ??? BRCA1 positive ??? Breast cancer ??? Depression ??? Chest pain ??? Cardiomyopathy ??? GERD (gastroesophageal reflux disease) ??? Palpitations ??? S/P TKR (total knee replacement) Reason for Visit: 52 y.o. 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 She has had chemotherapy induced menopause, with last bleeding occurring in February of 2008. She has not had any bleeding since then. She has no hot flashes. Other than vaginal dryness, she has no book editor complaints. Ty is a 52-year-old woman who is status post a left breast lumpectomy and sentinal lymphadenectomy 02/19. 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 All margins were greater than 1 cm. Zero of four sentinel nodes were positive. On 03/28/05, she began adjuvant chemotherapy (AC) and completed this 07/2005. She completed XRT November 2005. Her breast cancer was ER/NY and HER-2 negative. She has tested positive for a BRCA-1 mutation. Russ saw Ms. Hernández in 2008, at which time they discussed surveillance vs RRSO. Ms. Hernández has now decided she would like to proceed with risk reducing BSO. Review of Systems: Review of Systems Constitutional: Negative. Respiratory: Negative. Cardiovascular: Negative. Gastrointestinal: Negative. Past Medical and Surgical History: No past medical history on file. Past Surgical History Procedure Date ??? Created [...] LEFT/WITH NEEDLE LOC. Procedure Date: 02/26/2005 ??? Past Obstetric History: Obstetric History No data available Past Gynecologic History: See prior encounters Prior To Admission Medications: Prescriptions prior to admission Medication Sig Dispense Refill ??? Estradiol (VAGIFEM) [address] 1 tablet vaginally twice a week. 8 tablet 1 ??? ibuprofen (ADVIL;MOTRIN) 200 mg tablet Take 800 mg by mouth every 6 hours as needed. ??? LORazepam (ATIVAN) 1 mg tablet Take 1 mg by mouth nightly as needed. ??? epiNEPHrine (EPIPEN) 0.3 mg/0.3 mL (1:1,000) injection Inject 0.3 mLs into the muscle once as needed for 1 dose. 0.3 mL 1 ??? olopatadine (PATANOL) 0.1 % ophthalmic solution Place 1 drop into both eyes 3 times daily as needed for Allergies. 5 mL 5 ??? valACYclovir (VALTREX) 500 mg tablet Take 500 mg by mouth 2 times daily. ??? fluticasone (FLONASE) 50 mcg/actuation nasal spray 2 sprays by Each Nare route daily. 16 g 12 ??? Levocetirizine (XYZAL) 5 mg Tab Take 5 mg by mouth 2 times daily. 60 tablet 12 ??? terconazole (TERAZOL 7) 0.4 % vaginal cream Place 1 applicator vaginally nightly. 45 g 0 Allergies: Allergies Allergen Reactions ??? Tramadol Hives ??? Carvedilol Rash ??? Morphine Itching Extreme itching ??? Codeine Phosphate Rash ??? Penicillins Rash ??? Unknown (Unclassified Drug) Environmental alergies Hay fever ??? Vicodin (Hydrocodone-Acetaminophen) Rash Family History: No family history on file. Social History and Habits: History Social History ??? Marital Status: Spouse Name: N/A Number of Children: N/A ??? Years of Education: N/A Occupational History ??? Not on file. Social History Main Topics ??? Smoking status: Never Smoker ??? Smokeless tobacco: Never Used Comment: only exposure was as a child ??? Alcohol Use: No Occasionally ??? Drug Use: No ??? Sexually Active: Not Currently Other Topics Concern ??? Not on file Social History Narrative ??? No narrative on file Immunizations: Immunization History Administered Date(s) Administered ??? H1n1 06/06/2009 Physical Exam: Last Set of Vitals: Last value Range last 24 hrs Temperature Temp: 36.4 ??C (97.5 ??F) Temp: [36.4 ??C (97.5 ??F)] Heart Rate Heart Rate: 75 Heart Rate: [75] Blood Pressure BP: 128/78 mmHg BP: (128)/(78) Respiratory Rate Resp: 14 Resp: [14] SpO2 SpO2: 99 % SpO2: [99 %] Physical Exam Gen: well appearing, NAD Pulm: CTAB; no wheezes or crackles CV: RRR; no m/r/g Abdo: soft, non tender, non distended Laboratory (Last 24 Hours): None new Assessment/Plan: Will proceed with planned risk reducing BSO. Consent reviewed and signed. NGA TRIPLETT MD 04/21/2013 documented in this encounter Miscellaneous Notes * Op Note - Ken Ellington MD - 04/21/2013 6:10 PM EST [facility] Operative Note Patient Name: Ty Hernández : [id number] MR#: [id number] Case Date: 04/21/2013 Surgeon: Surgeon(s) and Role: * Carly Chamberlain MD - Primary * Ken Ellington MD - Resident-Surgeon [place] * Juan J Hopkins - Medical Student GMS III Preoperative diagnosis: H/O BREAST CANCER Postoperative diagnosis: H/O BREAST CANCER Procedure(s): Laparoscopic risk-reducing bilateral salpingo-oophorectomy Anesthesia: General Findings: normal appearing tubes and ovaries Specimens: 1. Pelvic washings for cytology 2. Left tube and ovary for permanent section 3. Right tube and ovary for permanent section Complications: none Fluids: 1000cc Estimated Blood Loss: <10cc Drains: moses draining 50cc clear yellow urine, removed at end of procedure Disposition: awakened from anesthesia, extubated and taken to the recovery room in a stable condition, having suffered no apparent untoward event. Condition: doing well without problems (Please see the Surgical Encounter Summary for any Implant and Specimen details pertinent to this patient.) HPI/Surgical Indications: Ty Hernández is a 52 y.o. female with a history of breast cancer, status post a left breast lumpectomy and sentinal lymphadenectomy 02/19, adjuvant chemotherapy completed 07/2005 and XRT completed November 2005. She has tested positive for a BRCA-1 mutation and wished to proceed with risk reducing BSO. Risks and benefits were reviewed pre-operatively. Consent was reviewed on the day of surgery. Thepatient wished to proceed. Procedure Description: Technique: The patient was taken to the Operating Room where general anesthesia was obtained without difficulty. She was placed in the dorsal supine position, and a Moses catheter was inserted. The patient was prepared and draped in the usual sterile manner. A surgical timeout was performed with all parties in agreement. A 12-mm skin incision was made within the umbilical fold. The Veress needle was carefully introduced into the peritoneal cavity while tenting up the abdominal wall. The abdomen was insufflated with CO2 gas to a pressure of 15 mmHg. The 12-mm port and trocar were advanced without difficulty into the abdomen where intra- abdominal placement was confirmed with the laparoscope. A 5-mm right lateral skin incision was made and a port inserted under direct vision. A 5-mm left lateral port was then also inserted under direct vision. With both lateral ports in place, the pelvis was explored with findings as above. Peritoneal washings were sent for cytology. Both ureters were clearly identified. The right infundibulopelvic ligament was grasped adjacent to the ovary, and the LigaSure was used to divide the right IP ligament. Further dissection with a LigaSure was used to remove the right tube and right ovary adjacent to the right uterine cornua. The specimen was placed in the vesicouterine fold while attention was turned to the left. In a similar manner, the left adnexa was clearly identified, and the left ureter was identified fora second time. The left infundibulopelvic ligament was grasped adjacent to the ovary and divided with the LigaSure. The LigaSure was used to dissect between the ovarian and round ligaments, and the left ovary and tube were removed. Vascular pedicles were seen to be dry. An endo-catch bag was introduced through the 12-mm port site and deployed. The bilateral fallopian tubes and ovaries were placedinto the bag and brought to the skin surface. The tubes, ovaries, and endo-catch bag were removed intact. The specimen and pelvic washings were sent for permanent section. The vascular pedicles were reexamined and seen to be hemostatic. The instruments were then removed from the patient's abdomen after removal of the pneumoperitoneum.The fascia of the 12mm port incision was identified and closed with 0 Vicryl in an interrupted fashion and felt to be intact. The skin for the three ports was closed with subcuticular 4-0 Vicryl and Surgicel. The patient tolerated the procedure well. The moses was removed at the end of the procedure. Sponge, lap, and needle counts were correct times two. The patient was taken to the Recovery Room in stable condition. Pre-operative antibiotics: not indicated DVT Prophylaxis: SCD's Dr. Chamberlain was present and scrubbed for the entire procedure without intervening responsibility. KEN ELLINGTON MD 04/21/2013 * Brief Op Note - Carly Chamberlain MD - 04/21/2013 5:21 PM EST Brief Operative Note Patient Name: Ty Hernández : [id number] MR#: [id number] Case Date: 04/21/2013 Surgeon: Surgeon(s) and Role: * Carly Chamberlain MD - Primary * Nga Triplett MD - Resident-Surgeon Chief * Ken Ellington MD - Resident-Surgeon [place] Preoperative diagnosis: H/O BREAST CANCER Postoperative diagnosis: H/O BREAST CANCER Procedure(s): LAPAROSCOPY, REMOVAL OF ADNEXA Anesthesia: General Findings: normal appearing tubes and ovaries Complications: none Fluids: 1000cc Estimated Blood Loss: <10cc Drains: moses, removed at end of procedure Disposition: awakened from anesthesia, extubated and taken to the recovery room in a stable condition, having suffered no apparent untoward event. Condition: doing well without problems (Please see the Surgical Encounter Summary for any Implant and Specimen details pertinent to this patient.) * OR Attestation - Carly Chamberlain MD - 04/21/2013 5:21 PM EST Attestation: Case Date: 04/21/2013 I was present and I participated during the entire procedure (does not need to include opening and closing). CARLY CHAMBERLAIN MD 04/21/2013 * Miscellaneous - Provider, Scanning - 04/21/2013 2:37 PM EST documented in this encounter Plan of Treatment Upcoming Encounters Date Type Department Care Team (Late st Contact Info) Description 03/27/2024 11:00 AM EDT Office Visit Hematology/Oncology at [address] [phone] El Bernardo MD [facility] [place] [address] [address] HEMATOLOGY AND ONCOLOGY [place], [place] [id number] 04/21/2024 8:00 AM EST Appointment Mammography/[place] [address] [address] HEMATOLOGY AND ONCOLOGY [place], [place] [id number] documented as of this encounter Procedures Procedure Name Priority Date/Time Associated Diagnosis Comments NON-THEATER EDUCATION TEACHER FINAL REPORT Routine 04/21/2013 4:46 PM EST SURGICAL PATHOLOGY REPORT Routine 04/21/2013 4:46 PM EST SPECIMEN TO PATHOLOGY Routine 04/21/2013 4:46 PM EST CYTOPATHOLOGY NON-GYNECOLOGICAL Routine 04/21/2013 4:46 PM EST LAPAROSCOPY, REMOVAL OF ADNEXA (WRVU 11.35) 04/21/2013 4:00 PM EST H/O BREAST CANCER documented in this encounter Results * Surgical Pathology Report (04/21/2013 4:46 PM EST) Surgical Pathology Report ? [facility] ? Provider: ?? CARLY CHAMBERLAIN ?Pt. Name: ?? TY HERNÁNDEZ ? Acc #: ?[id number] ?Pt. ? Col Date: ?? 04/21/2013 ? /Sex: ?1960,(52 years),Female ? Rec Date: ?? 04/21/2013 ? LOC: ?SDP ? SURGICAL PATHOLOGY ? ---Pathologic Diagnosis--- ? Right and left fallopian tubes and ovaries (bilateral ? salpingo-oophore ctomy): ? No evidence of malignancy. ? CR-0 ? 04/23/13 ? J[facility] ? 04/24/13 Verified by: ? Gabriel LLANOS, Lior Cook. ? Pathologist ? (Electronic Signature) ? The attending pathologist whose signature appears on this report has ? reviewed all diagnostic slides and has edited the gross and/or ? microscopic portion of the report in rendering the final pathologic ? diagnosis. ? ---Gross Description--- ? A - Labeled/Fixative : Bilateral tubes and ovaries, fresh. ? Quantity/Size: Multiple, 6.3 x 3.5 x 1.7 cm in aggregate. ? Specimen Description: Bilateral salpingo-oophore ctomy. Specimen is ? unoriented and undesignated left or right. ? Ovary #1: ?Size: 2.3 x 1.4 x 1.1 cm. ?Surface: White-yellow and cerebriform. ?Parenchyma: White-yellow with occasional albicantia. ? Fallopian tube #1: 1.9 x 0.5 x 0.4 cm. Smooth, alcocer-pink and glistening. ? Ovary #2: ?Size: 1.6 x 1.5 x 1.0 cm. ?Surface: White-yellow and cerebriform. ?Parenchyma: White-yellow with occasional albicantia. ? Fallopian tube #2: 2.8 x 0.5 x 0.5 cm. Smooth, alcocer-pink and glistening. ? Sections/Process ing: (1-7) ovary and fallopian tube #1 entirely submitted ? beginning proximally and ending towards fimbriae; (8-15) ovary and ? fallopian tube #2 entirely submitted beginning proximally and ending ? towards fimbriae. (T15) ??apm ? ---Clinical Information--- ? Specimen Submitted: ? A - Bilateral tubes and ovaries ? Clinical History: ? History of breast cancer; high risk for ovarian cancer ? [facility] ? Provider: ?? CARLY CHAMBERLAIN ?Pt. Name: ?? TY HERNÁNDEZ ? Acc #: ?[id number] ?Pt. ? Col Date: ?? 04/21/2013 ? /Sex: ?1960,(52 years),Female ? Rec Date: ?? 04/21/2013 ? LOC: ?SDP ? SURGICAL PATHOLOGY ? Clinical Diagnosis: ? [facility] 04/21/2013 4:46 PM EST Carly Chamberlain MD PATHOLOGY/CYTOLOGY O RDERABLES [facility] * Non-Attending Physician Final Report (04/21/2013 4:46 PM EST) Non-Attending Physician Final Report ? [facility] ? Provider: ?? CARLY CHAMBERLAIN ?Pt. Name: ?? TY HERNÁNDEZ ? Acc #: ?[id number] ?Pt. ? Col Date: ?? 04/21/2013 ? /Sex: ?1960,(52 years),Female ? Rec Date: ?? 04/21/2013 ? LOC: ?SDP ? CYTOPATHOLOGY: ??NGYN ? ---Adequacy--- ? Specimen submitted is satisfactory. ? ---Cytopathologic Diagnosis--- ? See Comment ? 04/23/13 ?Screened by: ? SLA ? Rescreened by: ?? SAMANTHA,SAMANTHA ? 04/24/13 ?Verified by: ? Omid LLANOS, Tyree Luevano ?Pathologist ?(Electronic Signature) ? ---Comment--- ? Pelvic Fluid, Pelvic Wash: ? Mesothelial cells, white blood cells, and papillary clusters of bland- ? appearing cells are present (see Note). ? Note: The papillary clusters likely represent benign mesothelial ? hyperplasia. No cytologically malignant cells are seen. ??Cell block shows ? similar features. ? ---Clinical Information--- ? Specimen Source: ?Pelvic Fluid, Pelvic Wash ? Pertinent Clinical Data and Significant Therapy: ?H/o breast cancer ? Clinical Impression: ?H/o breast cancer ? Pertinent Radiologic Findings: ?(not provided) ? Gross Description: ?Received fresh, approximately 35 ml. total volume of cloudy, alcocer fluid. ?Total Preparation: Liquid Based Prep 1; Cell Block 1. KANDY FRANCIS 04/21/2013 4:46 PM EST Carly Chamberlain MD PATHOLOGY/CYTOLOGY O NARENDRA Performing Organization Address [facility] de Phone Number [facility] * Cytopathology Non-Gynecological (04/21/2013 4:46 PM EST) AP Specimen 04/21/2013 4:46 PM EST 04/21/2013 4:46 PM EST Narrative KANDY FRANICS - 04/21/2013 4:46 PM EST Specimen requisition ordered. ??Separate Pathology report to follow Carly Chamberlain MD PATHOLOGY/CYTOLOGY O NARENDRA Performing Organization Address [facility] de Phone Number [facility] * Specimen to Pathology (surgical or derm) (04/21/2013 4:46 PM EST) AP Specimen 04/21/2013 4:46 PM EST 04/21/2013 4:46 PM EST Narrative KANDY FRANCIS - 04/21/2013 4:46 PM EST Specimen requisition ordered. ??Separate Pathology report to follow Carly Chamberlain MD PATHOLOGY/CYTOLOGY O NARENDRA Performing Organization Address [facility] de Phone Number [facility] documented in this encounter Visit Diagnoses Not on filedocumented in this encounter Administered Medications Inactive Administered Medications - up to 3 most recent administrations Medication Order MAR Action Action Date Dose Rate Site acetaminophen (TYLENOL) tablet 650 mg 650 mg, Oral, EVERY 6 HOURS PRN, Starting on Sat04/21/13 at 1734, Until Sat04/21/13 at 2317, Pain, Maximum dose of acetaminophen is 4000 mg from all sources in 24 hours., Routine Given 04/21/2013 6:25 PM EST 650 mg ketorolac (TORADOL) injection 15 mg 15 mg, Intravenous, EVERY 8 HOURS SCHEDULED, 3 doses, First dose on Sat04/21/13 at 1800, Last dose on Sat04/22/13 at 1400, Routine Given 04/21/2013 5:40 PM EST 15 mg lactated ringers infusion 1,000 mL 1,000 mL, at 100 mL/hr, Intravenous, CONTINUOUS, Starting on Sat04/21/13 at 1315, Until Sat04/21/13 at 2317, Day of Surgery (Day of Procedure) New Bag 04/21/2013 6:33 PM EST 1,000 mLs 100 mL/hr New Bag 04/21/2013 4:08 PM EST mL New Bag 04/21/2013 1:15 PM EST 1,000 mLs 100 mL/hr ondansetron (ZOFRAN) injection 4 mg 4 mg, Intravenous, EVERY 30 MIN PRN, Starting on Sat04/21/13 at 1737, Until Sat04/21/13 at 2317, Nausea, May repeat 4 mg once in 30 minutes. Consider prochlorperazine if ineffective., PACU Recovery Given 04/21/2013 5:35 PM EST 4 mg OXYcodone (ROXICODONE) immediate release tablet 5 mg 5 mg, Oral, EVERY 3 HOURS PRN, Starting on Sat04/21/13 at 1734, Until Sat04/21/13 at 2317, Pain, May repeat once within 30-60 minutes if pain unrelieved., Routine Given 04/21/2013 6:25 PM EST 5 mg documented in this encounter Active and Recently Administered Medications Due to Daylight Saving Time, this section may contain times in both EDT and EST. Scheduled Medication Order 04/19/2013 04/20/2013 04/21/2013 ketorolac (TORADOL) injection 15 mg (CANCELED) 15 mg, Intravenous, EVERY 8 HOURS SCHEDULED, 3 doses, First dose on Sat04/21/13 at 1800, Last dose on Sat04/22/13 at 1400, Routine 1740 (Given - Provid er: Agatha Sylvester RN)1800 (Due) Continuous Medication Order 04/19/2013 04/20/2013 04/21/2013 lactated ringers infusion 1,000 mL (CANCELED) 1,000 mL, at 100 mL/hr, Intravenous, CONTINUOUS, Starting on Sat04/21/13 at 1315, Until Sat04/21/13 at 2317, Day of Surgery (Day of Procedure) 1315 (New Bag - Prov ider: Viky Acuna RN)1608 (New Bag - Provider: Jeevan Adan)1712 (Anesthesia Volume Adjustment - Provider: Jeevan Adan)1833 (New Bag - Provider: Agatha Sylvester RN) PRN Medication Order 04/19/2013 04/20/2013 04/21/2013 acetaminophen (TYLENOL) tablet 650 mg (CANCELED) 650 mg, Oral, EVERY 6 HOURS PRN, Starting on Sat04/21/13 at 1734, Until Sat04/21/13 at 2317, Pain, Maximum dose of acetaminophen is 4000 mg from all sources in 24 hours., Routine 1824 (Given - Provid er: Agatha Sylvester RN) ondansetron (ZOFRAN) injection 4 mg (CANCELED) 4 mg, Intravenous, EVERY 30 MIN PRN, Starting on Sat04/21/13 at 1737, Until Sat04/21/13 at 2317, Nausea, May repeat 4 mg once in 30 minutes. Consider prochlorperazine if ineffective., PACU Recovery 1734 (Given - Provid er: Agatha Sylvester RN) OXYcodone (ROXICODONE) immediate release tablet 5 mg (CANCELED) 5 mg, Oral, EVERY 3 HOURS PRN, Starting on Sat04/21/13 at 1734, Until Sat04/21/13 at 2317, Pain, May repeat once within 30-60 minutes if pain unrelieved., Routine 1824 (Given - Provid er: Agatha Sylvester RN) documented in this encounter Care Teams Operating Room Technician Relationship Specialty Start Date End Date Michelle Silveira PA PCP - General 05/09/10 08/04/15 documented as of this encounter
--- OUTSIDE RECORDS SUMMARY | 2024-02-27 12:46 | XMS_ITS | Encounter Summary ---
Author Organization [facility] Address [facility] [place] [address] Care Team Providers Care Rock Star Name Role Phone Raoul Michelle YADIRA Primary Care Provider [phone] Reason for Visit * Reason Onset Date Comments Medication Refill 06/04/2012 Encounter Details Date Type Department Care Team (Late st Contact Info) Description 06/04/2012 Refill [place] [phone] Anna Bales, RN Yeast infection (Primary Dx) Social History Tobacco Use Types [...] AM EDT Office Visit Hematology/Oncology at [address] [phone] El Bernardo MD [facility] [place] [address] Linda Tamayo [address] HEMATOLOGY AND ONCOLOGY [place], [place] [address] 04/21/2024 8:00 AM EST Appointment Mammography/[place] [address] Linda Tamayo [address] [place]OLOGY [place] [address] documented as of this encounter Visit Diagnoses Diagnosis Yeast infection- Primary Other and unspecified mycoses documented in this encounter Care Teams Rock Star Relationship Specialty Start Date End Date Michelle Silveira PA PCP - General 05/09/10 08/04/15 documented as of this encounter
--- OUTSIDE RECORDS SUMMARY | 2024-02-27 12:46 | XMS_ITS | Encounter Summary ---
Author Organization [facility] Address [facility] [place] [address] Care Team Providers Care Scullion Chief Name Role Phone Raoul Michelle YADIRA Primary Care Provider [phone] Reason for Visit * Reason Comments Post Op Encounter Details Date Type Department Care Team ([facility] st Contact Info) Description 06/01/2013 1:20 PM EST Office Visit Gyne[place] [address] Carly Solano MD [facility] [place] [address] BRCA1 positive Discharge Disposition: Home Social History [...] Sign Reading Time Taken Comments Blood Pressure 128/82 06/01/2013 12:23 PM EST Pulse - - Temperature 37.1 ??C (98.8 ??F) 06/01/2013 1 2:17 PM EST Respiratory Rate - - Oxygen Saturation - - Inhaled Oxygen Concentration - - Weight 81.6 kg (179 lb 14.3 oz) 013 12:17 PM EST Height - - Body Mass Index 29.04 04/21/2013 12:46 PM EST documented in this encounter Progress Notes * Carly Solano MD - 06/01/2013 1:02 PM EST Provider: Dr. Solano Patient Active Problem List Diagnosis ??? Nevus ??? BRCA1 positive ??? Breast cancer A. S/P partial L mastectomy 2004 B. Treated with cytoxan and doxorubicin and radiation therapy. ??? Depression ??? Chest pain A. Stress test [facility] 06/28: exercised to 10.1 [...] ??? S/P TKR (total knee replacement) Left History of Present Illness: ??N?? returns today for post-op check, s/p laparoscopic BSO on 04/21/2013. She had no srinivas-operative complications and was discharged on POD 0. Other than some fatigue, Rebeca feels well today, and has returned to her usual pre-operative functional status. She has no difficulties with bowel or bladder habits. She denies nausea or vomiting and is eating a regular diet. She has no vaginal bleeding. Her final pathology was reviewed: ---Pathologic Diagnosis--- Right and left fallopian tubes and ovaries (bilateral salpingo-oophorectomy): No evidence of malignancy. Prior to Admission medications Medication Sig Start Date End Date Taking? Authorizing Provider ibuprofen (ADVIL;MOTRIN) 600 mg tablet Take 1 tablet by mouth every 6 hours as needed for Pain. 04/21/13 Yes Suad Milligan MD epiNEPHrine (EPIPEN) 0.3 mg/0.3 mL (1:1,000) injection Inject 0.3 mLs into the muscle once as needed for 1 dose. 11/19/12 Yes Ana Swanson MD ibuprofen (ADVIL;MOTRIN) 200 mg tablet Take 800 mg by mouth every 6 hours as needed. Yes Sola Liu MD LORazepam (ATIVAN) 1 mg tablet Take 1 mg by mouth nightly as needed. Yes Sola Liu MD OXYcodone-acetaminophen (PERCOCET) 5-325 mg per tablet Take 1 tablet by mouth every 4 hours as needed for Pain. 04/21/13 06/01/13 Suad Milligan MD Estradiol (VAGIFEM) [address] 1 tablet vaginally twice a week. 01/22/13 Carly Solano MD olopatadine (PATANOL) 0.1 % ophthalmic solution Place 1 drop into both eyes 3 times daily as neededfor Allergies. 11/18/12 Ana Swanson MD valACYclovir (VALTREX) 500 mg tablet Take 500 mg by mouth 2 times daily as needed. Provider, MD Sola fluticasone (FLONASE) 50 mcg/actuation nasal spray 2 sprays by Each Nare route daily. 10/28/12 Ana Swanson MD Levocetirizine (XYZAL) 5 mg Tab Take 5 mg by mouth 2 times daily. 10/28/12 Ana Swanson MD terconazole (TERAZOL 7) 0.4 % vaginal cream Place 1 applicator vaginally nightly. 06/04/12 06/01/13Carly Solano MD Allergies Allergen Reactions ??? Tramadol Hives ??? Carvedilol Rash ??? Morphine Itching Extreme itching ??? Codeine Phosphate Rash ??? Penicillins Rash ??? Unknown (Unclassified Drug) Environmental alergies Hay fever ??? Vicodin (Hydrocodone-Acetaminophen) Rash Review of Systems: She is having a few more hot flashes. Otherwise negative. Filed Vitals: 06/01/13 1217 06/01/13 1223 BP: 128/82 Temp: 37.1 ??C (98.8 ??F) TempSrc: Oral Weight: 81.6 kg (179 lb 14.3 oz) Physical Examination: Directed exam: Abdomen is obese without obvious abnormal mass, organomegaly or ascites. Incisions have healed well. It appears that she might be spitting out two of her three knots. Impression: Satisfactory post-op check. I discussed her pathology. Plan: Patient to have annual digital performance analyst exams. 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 documented in this encounter Plan of Treatment Upcoming Encounters Date Type Department Care Team (Late st Contact Info) Description 03/27/2024 11:00 AM EDT Office Visit Hematology/Oncology at [address] [phone] El Bernardo MD [facility] [place] [address] [address] HEMATOLOGY AND ONCOLOGY [place], [place] [address] 04/21/2024 8:00 AM EST Appointment Mammography/[place] [address] HEMATOLOGY AND ONCOLOGY [place], [place] [phone] documented as of this encounter Visit Diagnoses Diagnosis BRCA1 positive Genetic susceptibility to malignant neoplasm of breast documented in this encounter Care Teams Scullion Chief Relationship Specialty Start Date End Date Michelle Silveira PA PCP - General 05/09/10 08/04/15 documented as of this encounter
--- OUTSIDE RECORDS SUMMARY | 2024-02-27 12:46 | XMS_ITS | Encounter Summary ---
Author Organization [facility] Address [facility] [place] [address] Care Team Providers Care Retail Salesworker Name Role Phone RaoulMichelle YADIRA Primary Care Provider [phone] Encounter Details Date Type Department Care Team (Late Contact Info) Description 06/24/2012 Notes [place] [address] Dipti Cedeño MSW [facility] DR HEMATOLOGY/[place] [address] Social History Tobacco Use Types Packs/Day Years Used Date Smoking Tobacco: Never Alcohol Use Standard Drinks/Week Comments Yes 0 (1 standard drink = 0.6 oz pur e alcohol) Occasionally Sex and Gender Information Value Date Recorded Sex Assigned at Not on file Gender Identity Not on file Sexual Orientation Not on file documented as of this encounter Progress Notes * Dipti Cedeño MSW - 06/24/2012 10:42 AM EST Office of Care Management/Continuing [place] Hand Pager #[phone] A: Ms. Hernández seen prior to imaging. She had hoped to be able to have MRI etc. in [facility] buther provider thought she would be better served coming to the same facility. Gas card given at her request. She was doing well today. P: Continue to assist with psychosocial needs documented in this encounter Plan of Treatment Upcoming Encounters Date Type Department Care Team (Late Contact Info) Description 03/27/2024 11:00 AM EDT Office Visit Hematology/Oncology at [address] [phone] El Bernardo MD [facility] [place] [address] [address] HEMATOLOGY AND ONCOLOGY [place], [place] [address] 04/21/2024 8:00 AM EST Appointment Mammography[place] [address] [address] HEMATOLOGY AND ONCOLOGY [place], [place] [phone] documented as of this encounter Visit Diagnoses Not on filedocumented in this encounter Care Teams Retail Salesworker Relationship Specialty Start Date End Date Michelle Silveira PA PCP - General 05/09/10 08/04/15 documented as of this encounter
--- OUTSIDE RECORDS SUMMARY | 2024-02-27 12:46 | XMS_ITS | Encounter Summary ---
Author Organization [facility] Address [facility] [place] [address] Care Team Providers Care Sofa Cover Inspector Name Role Phone Michelle Silveira YADIRA Primary Care Provider Reason for Visit * Reason Comments Palpitations Encounter Details Date Type Department Care Team (Late Contact Info) Description 04/15/2012 9:15 AM EDT Office Visit [address] [phone] Jeevan Orourke MD [facility] [place] [address] Palpitations (Primary Dx) Social History Tobacco Use Types Packs/Day Years Used Date Smoking Tobacco: Never Alcohol Use Standard Drinks/Week Comments Yes 0 (1 standard drink = 0.6 oz pur e alcohol) Occasionally Sex and Gender Information Value Date Recorded Sex Assigned at Not on file Gender Identity Not on file Sexual Orientation Not on file documented as of this encounter Progress Notes * Louis Atkinson - 04/22/2012 10:10 AM EST * Jeevan Orourke - 04/15/2012 12:40 PM EDT Subjective: Patient ID: Rebeca Hernández is a 51 y.o. female. HPI ROS Objective: Physical Exam Assessment and Plan: No problem-specific visit notes found for this encounter. scannednote documented in this encounter Plan of Treatment Upcoming Encounters Date Type Department Care Team (Late st Contact Info) Description 03/27/2024 11:00 AM EDT Office Visit Hematology/Oncology at [address] [phone] El Bernardo MD [facility] [place] [address] [address] HEMATOLOGY AND ONCOLOGY [place], [place] [address] 04/21/2024 8:00 AM EST Appointment Mammography/[place] [address] Linda Tamayo, [address] HEMATOLOGY AND ONCOLOGY [place], [place] [phone] documented as of this encounter Visit Diagnoses Diagnosis Palpitations- Primary documented in this encounter Care Teams Sofa Cover Inspector Relationship Specialty Start Date End Date Michelle Silveira PA PCP - General 05/09/10 08/04/15 documented as of this encounter
--- OUTSIDE RECORDS SUMMARY | 2024-02-27 12:46 | XMS_ITS | Encounter Summary ---
Author Organization [facility] Address [facility] [place] [address] Care Team Providers Care Head Athletic Trainer/Strength Coach Name Role Phone Michelle Silveira YADIRA Primary Care Provider [phone] Encounter Details Date Type Department Care Team (Late Contact Info) Description 11/26/2012 Telephone [place] [phone] Ankita Guzmán LPN Social History Tobacco Use Types Packs/Day [...] Telephone Encounter - Ankita Guzmán LPN - 11/26/2012 2:49 PM EDT Mcgraw extracts have arrived are in refrigerator at this time. documented in this encounter Plan of Treatment Upcoming Encounters Date Type Department Care Team (Late Contact Info) Description 03/27/2024 11:00 AM EDT Office Visit Hematology/Oncology at [address] [phone] El Bernardo MD [facility] [place] [address] Linda Tamayo APRN [address] [place] [address] DR HEMATOLOGY AND ONCOLOGY [place], [place] [phone] 04/21/2024 8:00 AM EST Appointment Mammography/[place] [address] Linda Tamayo, DIE TURNER [address] [place] [address] DR HEMATOLOGY AND ONCOLOGY [place], [place] [id number] documented as of this encounter Visit Diagnoses Not on filedocumented in this encounter Care Teams Head Athletic Trainer/Strength Coach Relationship Specialty Start Date End Date Michelle Silveira PA PCP - General 05/09/10 08/04/15 documented as of this encounter
--- OUTSIDE RECORDS SUMMARY | 2024-02-27 12:46 | XMS_ITS | Encounter Summary ---
Author Organization [facility] [place] [address] Care Team Providers Care Post Doc Fellowship Name Role Phone Michelle Silveira Primary Care Provider [phone] Reason for Visit * Reason Comments Suture / Staple Removal Encounter Details Date Type Department Care Team (Late st Contact Info) Description 09/02/2012 9:15 AM EDT Office Visit Dermatology [address] [place] [address] [address] [place] [address] Miles Bowman MD [address] [place] [address] RD, [place] [address] Nevus (Primary Dx) Social History Tobacco Use [...] Progress Notes * Miles Bowman MD - 09/02/2012 9:44 AM EDT Problem: Followup for discussion of biopsy results. Rebeca follows up and has done well postoperatively. She did have a fair amount of irritation under the Band-Aid sites. The biopsies were both read as benign nevi. Physical examination today reveals erythema under the Band-Aid adhesion sites on her chin, but good edge opposition and no evidence of infection. Assessment and Plan: 1. Status post excision nevi, two sites, mid anterior neck and left mid jawline. a. Sutures were removed. b. Patient congratulated about benign biopsy results. c. Return to clinic here p.r.n. for new lesions/concerns. COPY: YADIRA Zavala documented in this encounter Plan of Treatment Upcoming Encounters Date Type Department Care Team (Late st Contact Info) Description 03/27/2024 11:00 AM EDT Office Visit Hematology/Oncology at [address] [phone] El Bernardo MD [facility] [place] [address] [address] HEMATOLOGY AND ONCOLOGY [place], [place] [address] 04/21/2024 8:00 AM EST Appointment Mammography/[place] [address] [address] HEMATOLOGY AND ONCOLOGY [place], [place] [address] documented as of this encounter Visit Diagnoses Diagnosis Nevus- Primary Benign neoplasm of skin, site unspecified documented in this encounter Care Teams Post Doc Fellowship Relationship Specialty Start Date End Date Michelle Silveira PA PCP - General 05/09/10 08/04/15 documented as of this encounter
--- OUTSIDE RECORDS SUMMARY | 2024-02-27 12:46 | XMS_ITS | Encounter Summary ---
Author Organization [facility] Address [facility] [place] [address] Care Team Providers Care Furniture Assembler And Installer Name Role Phone Raoul Michelle MAY Primary Care Provider Encounter Details Date Type Department Care Team (Latest Contact Info) Description 04/21/2013 12:29 PM EST - 04/21/2013 8:54 PM EST Hospital Encounter [place] [phone] Carly Chamberlain MD [facility] [place] [address] Postoperative state Discharge Disposition: Home Social History Tobacco Use [...] Sign Reading Time Taken Comments Blood Pressure 112/78 04/21/2013 6:25 PM EST Pulse 56 04/21/2013 6:25 PM EST Temperature 37.1 ??C (98.8 ??F) 04/21/2013 5:29 PM ES T Respiratory Rate 18 04/21/2013 6:25 PM EST Oxygen Saturation 98% 04/21/2013 6:25 PM EST Inhaled Oxygen Concentration - - [...] PATIENT DISCHARGE INSTRUCTIONS Gynecology Oncology phone number: [phone] Call your doctor if you develop: --A [...] for Visit: 52 y.o. Female presents to [facility] for RRBS[facility] History of Present Illness: Bakari Hernández returns today for annual plisse machine operator helper evaluation. She has had chemotherapy induced menopause, with last bleeding occurring in February of 2008. She has not had any bleeding since then. She has no hot flashes. Other than vaginal dryness, she has no plisse machine operator helper complaints. Ty is a 52-year-old woman who is status post a left breast lumpectomy and sentinal lymphadenectomy 02/19. 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 All margins were greater than 1 cm. Zero of four sentinel nodes were positive. On 03/28/05, she began adjuvant chemotherapy (AC) and completed this 07/2005. She completed XRT November 2005. Her breast cancer was ER/IL and HER-2 negative. She has tested positive [...] Ellington MD - 04/21/2013 6:10 PM EST [facility] Operative Note Patient Name: Ty Hernández : [id number] MR#: [id number] Case Date: 04/21/2013 Surgeon: Surgeon(s) and Role: [...] Operative Note Patient Name: Ty Hernández : [id number] MR#: [id number] Case Date: 04/21/2013 Surgeon: Surgeon(s) and Role: [...] AM EDT Office Visit Hematology/Oncology at [address] [address] El Bernardo MD [facility] [place] [address] [address] HEMATOLOGY AND ONCOLOGY [place], [place] [phone] 04/21/2024 8:00 AM EST Appointment Mammography/[place] [address] [address] HEMATOLOGY AND ONCOLOGY [place], [place] [phone] documented as of this encounter Procedures Procedure Name Priority Date/Time Associated Diagnosis Comments NON-CHANNEL MARKETING SPECIALIST FINAL REPORT Routine 04/21/2013 4:46 PM EST SURGICAL PATHOLOGY REPORT Routine 04/21/2013 4:46 PM EST SPECIMEN TO PATHOLOGY Routine 04/21/2013 4:46 PM EST CYTOPATHOLOGY NON-GYNECOLOGICAL Routine 04/21/2013 4:46 PM EST LAPAROSCOPY, REMOVAL OF ADNEXA (WRVU 11.35) 04/21/2013 4:00 PM EST H/O BREAST CANCER documented in this encounter Results * Surgical Pathology Report (04/21/2013 4:46 PM EST) Surgical Pathology Report ? [facility] ? Provider: ?? CARLY CHAMBERLAIN ?Pt. Name: ?? YT HERNÁNDEZ ? Acc #: ?[id number] ?Pt. ? Col Date: ?? 04/21/2013 ? /Sex: ?1960,(52 years),Female ? Rec Date: ?? 04/21/2013 ? LOC: ?SDP ? SURGICAL PATHOLOGY ? ---Pathologic Diagnosis--- ? Right and left fallopian tubes and ovaries (bilateral ? salpingo-oophore ctomy): ? No evidence of malignancy. ? CR-0 ? 04/23/13 ? [facility] ? 04/24/13 Verified by: ? Gabriel LLANOS, Lior Hoskins ? Pathologist ? (Electronic Signature) ? The [...] cancer; high risk for ovarian cancer ? [facility] ? Provider: ?? CARLY CHAMBERLAIN ?Pt. Name: ?? TY HERNÁNDEZ ? Acc #: ?[id number] ?Pt. ? Col Date: ?? 04/21/2013 ? /Sex: ?1960,(52 years),Female ? Rec Date: ?? 04/21/2013 ? LOC: ?SDP ? SURGICAL PATHOLOGY ? Clinical Diagnosis: ? Same KANDY FRANCIS 04/21/2013 4:46 PM EST Carly Chamberlain MD PATHOLOGY/CYTOLOGY O RDERABLES [facility] * Non-Cell Tuber Machine Final Report (04/21/2013 4:46 PM EST) Non-Cell Tuber Machine Final Report ? [facility] ? Provider: ?? CARLY CHAMBERLAIN ?Pt. Name: ?? TY HERNÁNDEZ ? Acc #: ?[id number] ?Pt. ? Col Date: ?? 04/21/2013 ? [...] Liquid Based Prep 1; Cell Block 1. [facility] 04/21/2013 4:46 PM EST Carly Chamberlain MD PATHOLOGY/CYTOLOGY O NARENDRA Performing Organization Address [facility] de Phone Number [facility] * Cytopathology Non-Gynecological (04/21/2013 4:46 PM EST) AP Specimen 04/21/2013 4:46 PM EST 04/21/2013 4:46 PM EST Narrative [facility] - 04/21/2013 4:46 PM EST Specimen requisition ordered. ??Separate Pathology report to follow Carly Chamberlain MD PATHOLOGY/CYTOLOGY O NARENDRA Performing Organization Address [facility] de Phone Number [facility] * Specimen to Pathology (surgical or derm) (04/21/2013 4:46 PM EST) AP Specimen 04/21/2013 4:46 PM EST 04/21/2013 4:46 PM EST Narrative [facility] - 04/21/2013 4:46 PM EST Specimen requisition ordered. ??Separate Pathology report to follow Carly Chamberlain MD PATHOLOGY/CYTOLOGY O NARENDRA Performing Organization Address [facility] de Phone Number [facility] documented in this encounter Visit Diagnoses Diagnosis Postoperative state Other postprocedural status documented in this encounter Administered Medications Inactive [...] RN) documented in this encounter Care Teams Furniture Assembler And Installer Relationship Specialty Start Date End Date Michelle Silveira PA PCP - General 05/09/10 08/04/15 documented as of this encounter
--- OUTSIDE RECORDS SUMMARY | 2024-02-27 12:46 | XMS_ITS | Encounter Summary ---
Author Organization [facility] Address [facility] [place] [address] Care Team Providers Care Resource Program Teacher Name Role Phone Michelle Silveira YADIRA Primary Care Provider [phone] Reason for Visit * Reason Onset Date Comments Medication Refill 08/25/2013 Encounter Details Date Type Department Care Team (Late Contact Info) Description 08/25/2013 Refill Gy[place] [address] Carly Solano MD [facility] [place] [address] Menopause (Primary Dx) Social History Tobacco Use [...] 11:00 AM EDT Office Visit Hematology/Oncology at [address] [phone] El Bernardo MD [facility] [place] [address] Linda Tamayo APRN [address] [place] [address] DR HEMATOLOGY AND ONCOLOGY [place], [place] [address] 04/21/2024 8:00 AM EST Appointment Mammography/[place] [address] Linda Tamayo APRN [address] [place] [address] DR [place] [address] documented as of this encounter Visit Diagnoses Diagnosis Menopause- Primary Asymptomatic postmenopausal status (age-related) (natural) documented in this encounter Care Teams Resource Program Teacher Relationship Specialty Start Date End Date Michelle Silveira PA PCP - General 05/09/10 08/04/15 documented as of this encounter
--- OUTSIDE RECORDS SUMMARY | 2024-02-27 12:47 | XMS_ITS | Encounter Summary ---
Author Organization [facility] Address [facility] [place] [address] Care Team Providers Care Welding Machine Operator Plasma Arc Name Role Phone Raoul Michelle YADIRA Primary Care Provider [phone] Encounter Details Date Type Department Care Team (Latest Contact Info) Description 09/05/2011 2:00 PM EDT Office Visit Cardiology at [address] [place] [address] Sydney Nix, LIZABETH [facility] [place] [address] Cardiomyopathy (Primary Dx) Discharge Disposition: Home Social History [...] Sign Reading Time Taken Comments Blood Pressure 106/76 09/05/2011 1:46 PM EDT Pulse 80 09/05/2011 1:46 PM EDT Temperature - - Respiratory Rate - - Oxygen Saturation - - Inhaled Oxygen Concentration - - Weight 87.1 kg (192 lb) 09/05/2011 1:46 PM EDT Height - - Body Mass Index 30.99 08/15/2011 8:03 AM EST documented in this encounter Patient Instructions * Patient Instructions* Sydney Nix, LIZABETH - 09/05/2011 2:17 PM EDT Start metoprolol 25 mg (1/2 tab) once daily for 1 week. If BP OK and there is no rash you can increase to 50 mg (1 whole tablet) once daily. Follow up with [facility] as previously scheduled. documented in this encounter Progress Notes * Sydney Nix APRN - 09/05/2011 3:30 PM EDT ID and CC: Rebeca Hernández is a 50 y.o. female. She presents for f/u regarding her nonischemic cardiomyopathy. HPI: Following her cath on 08/15/11 coreg was initiated at 3.125 mg BID. This was tolerated well, though she noted lower BP. When coreg was uptitrated to 6.25 mg BID she had increased fatigue. About 1 weekafter her cath she had and itchy rash and swelling on her trunk, neck, face. This also involved throat swelling. She went to the ED at [facility]. She was given IV and po steroids. Since coreg was the onlynew medication her rash was attributed to this and coreg was stopped. She is trying to increase her activity. She does get SOB when she tries to walk long distances, butgenerally she is feeling well. There is no orthopnea or PND. She has occ rapid heart rate with activity. She gained a bit of weight while on the steroids, but otherwise has had no issues with fluid retention. Patient Active Problem List Diagnoses ??? Breast cancer A. S/P partial L mastectomy 2004 B. Treated with cytoxan and doxorubicin and radiation therapy. ??? Depression ??? Chest pain A. Stress test [facility] 06/28: exercised to 10.1 METs and 152 bpm. Neck pain at 6 mins. No EKG changes. ??? Cardiomyopathy A. Echo 2011: LVEF 45% with global HK. B. Cardiac cath 08/15/11: Nl coronary arteries. LVEF 55%. LVEDP 13. C. H/O breast cancer. Treated with 6 cycles doxorubicin (total 360 mg/m2) and cyclophosphamide - complete in 2005. Pretreatment MUGA 2005 - nl LV function. ??? GERD (gastroesophageal reflux disease) ??? Palpitations ??? S/P TKR (total knee replacement) Left Current Outpatient Rx Name Route Sig Dispense Refill ??? IBUPROFEN 200 MG ORAL TAB Oral Take 800 mg by mouth every 6 hours as needed. ??? LORAZEPAM 1 MG ORAL TAB Oral Take 1 mg by mouth nightly as needed. ??? VAGIFEM 10 MCG VAGL TAB Vaginal 10 MCG = 1 Tablet(s), Vag, twice weekly ??? CARVEDILOL 3.125 MG ORAL TAB Oral Take 6.25 mg by mouth 2 times daily (with meals). ??? TRAMADOL 50 MG ORAL TAB Oral Take 50 mg by mouth every 6 hours as needed. Allergies: Morphine, Penicillins, Codeine phos, Unknown and Carvedilol Interval ROS: Patient denies cough, fever, PND, orthopnea, activity intolerance, leg swelling, change in bowel habit, presyncope or syncope. Physical Exam: Blood pressure 106/76, pulse 80, weight 87.091 kg (192 lb). General: WD, WN HEENT: No JVD or carotid abnormalities Lungs: Clear to A+P Cor: RR, normal S1, S2. PMI not displaced. No murmur or gallop Abd: soft, no L/S/K enlargement or bruits Ext: Pulses preserved, no edema Lab data: None today. Assessment: Nonischemic cardiomyopathy - ? Related to chemotherapy. Currently NYHA functional class I-II. On no HF medications at the present time due to possible coreg allergy - in addition she experienced SEs that would make uptitration difficult. Will change to metoprolol and consider adding ACEI at some point if BP tolerates. Plan: 1. A review of the active management and working diagnosis(es) was conducted. 2. The patient's medication list was updated and new Rxs given as needed. DC coreg. Begin metoprolol succinate. Start at 25 mg daily and increase to 50 mg daily if tolerated. 3. Question were answered regarding: potential etiology CMP. 4. The following labs or other testing advised: possible repeat echo over the summer. 5. Cardiology follow up scheduled for: September with Dr Orourke as previously scheduled. documented in this encounter Plan of Treatment Upcoming Encounters Date Type Department Care Team (Late st Contact Info) Description 03/27/2024 11:00 AM EDT Office Visit Hematology/Oncology at [address] [phone] [facility] [place] [address] [address] HEMATOLOGY AND ONCOLOGY [place], [place] [id number] 04/21/2024 8:00 AM EST Appointment Mammography/[place] [address] [address] HEMATOLOGY AND ONCOLOGY [place], [place] [id number] documented as of this encounter Visit Diagnoses Diagnosis Cardiomyopathy- Primary Other primary cardiomyopathies documented in this encounter Care Teams Welding Machine Operator Plasma Arc Relationship Specialty Start Date End Date Michelle Silveira PA PCP - General 05/09/10 08/04/15 documented as of this encounter
--- OUTSIDE RECORDS SUMMARY | 2024-02-27 12:47 | XMS_ITS | Encounter Summary ---
Author Organization [facility] Address [facility] [place] [address] Care Team Providers Care Group Therapist Name Role Phone Michelle Silveira Primary Care Provider [phone] Reason for Visit * Reason Comments Breast Cancer Encounter Details Date Type Department Care Team (Late st Contact Info) Description 05/22/2011 11:00 AM EST Follow-Up Hematology Oncology at [address] [phone] El Bernardo MD [facility] [place] [address] Breast cancer (Primary Dx) Discharge Disposition: Home Social History Tobacco Use Types Packs/Day Years Used Date Smoking Tobacco: Never Assessed Alcohol Use Standard Drinks/Week Comments Yes 0 (1 standard drink = 0.6 oz pur e alcohol) Occasionally Sex and Gender Information Value Date Recorded Sex Assigned at Not on file Gender Identity Not on file Sexual Orientation Not on file documented as of this encounter Last Filed Vital Signs Vital Sign Reading Time Taken Comments Blood Pressure 103/69 05/22/2011 11:09 AM EST Pulse 83 05/22/2011 11:09 AM EST Temperature 36.6 ??C (97.9 ??F) 05/22/2011 11:[address] Respiratory Rate 16 05/22/2011 11:09 AM EST Oxygen Saturation 100% 05/22/2011 11:09 AM EST Inhaled Oxygen Concentration - - Weight 83 kg (182 lb 15.7 oz) 05/22/2011 11:09 A M EST Height 165.9 cm (5' 5.32) 05/22/2011 11:[address] Body Mass Index 30.16 05/22/2011 11:09 AM EST documented in this encounter Progress Notes * El Bernardo MD - 05/22/2011 11:11 AM EST Subjective: Patient ID: Rebeca Hernández is a 50 y.o. female. Problem List: 1. Cancer of [...] with heterologous chondroid differentiation Tumor Grade: High Qtagec-Xzhhm-Xygpijmhnp Score: 9 Tubular Differentiation: 3 Mitotic Rate: [...] carcinoma: 4 Estrogen/Progestin receptors: ER immunoreactivity: Negative MT immunoreactivity: Negative HER2/yeyo expression by FISH: NEGATIVE FOR HER2/YEYO AMPLIFICATION H. s/p adjuvant chemotherapy (AC). Completed 6 cycles 07/25/05. I. Adjuvant radiation therapy, completed 12/07/05. J. 05/18/11: Bilateral mammogram - CONCLUSION: BENIGN mammogram (ACR Category 2). Routine screening mammography is recommended with the frequency dependent on the patient's age and breast cancer risk factors. Breast MRI: SUMMARY: LEFT BREAST: BENIGN FINDING (BIRADS Category 2). Post-treatment change only. RIGHT BREAST: NEGATIVE (BIRADS Category 1). No suspicious enhancement to suggest breast cancer. 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 Her periods stopped for a while after chemo, then returned for a couple of cycles and stopped again. Past Surgical History: Cone biopsy of her cervix, which was benign and excision of a basal cell carcinoma. HPI Ms. Hernández is seen in f/u of cancer of the left breast as above. 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 It was hormone receptor and her-2/yeyo negative. She received adjuvant chemotherapy with AC and radiation and completed all therapy in 11/20. She has been followed by Dr. Guerrero and is here for her visit with me as this is closer to her home. Of note, she has undergone genetic testing and is BRCA-1 positive. She had a recent mammogram and breast MRI. She also follows with Dr. Chamberlain for ovarian cancer screening although has not been seen since 2008. On presentation today, she is feeling fairly well. On occasion, she notices some discomfort in the left axillary area. It has been more noticeable since the recent mammogram although it is better today. It has bothered her in the past. It has been present ever since the surgery. Her appetite is good and her weight is up a few pounds from last year. Her energy level is fair. She says she tires easily. 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 No pther areas of pain, including no sternal pain. This came up because on the breast MRI in 2009, an area of abnormality was noted in the sternum. A bone scan at that time was negative. This was not mentioned on the MRI done last week. She is not having menstrual periods. Fam Hx/Soc Hx: Pt is working regularly. Pt has 3 children (lives with 16 yo daughter while two sons live with ). No change in family Hx. One sister (age 53) and one brother (age ~50). No paternal aunts or cancer on father's side. Mother had breast cancer dx in her 50s. Maternal GM had breast cancer around age 60. One maternal aunt and two female cousins without cancer. No family h/o ovarian cancer Review of Systems Constitutional: Positive for fatigue. [...] and no mass. There is no hepatosplenomegaly. No tenderness. She has no guarding. Genitourinary: Breast exam: Well healed incision in upper portion of left breast with some tenderness to palpation(no change). Nos skin dimpling or puckering and no masses in either breast. Nipples [...] mood and affect. Her behavior is normal. Assessment and Plan: Ms. Hernández is a 50 yo female with a h/o left breast cancer as above. 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 It was hormone receptor and her-2/yeyo negative. She received adjuvant chemotherapy with AC and radiation and completed all therapy in 11/20. Clinically, she seems to be doing well from this perspective. As noted, she is positive for BRCA-1 mutation. She is due for f/u with Dr. Chamberlain and she will call to schedule that. She is also concerned about her daughter and wonders about the appropriate time for her to consider testing. She is currently 17 yo. I will contact the Familial Cancer Program about that. We talked about screening colonoscopy which she would due for next year. We will discuss that again next year when she comes for her annual visit. documented in this encounter Procedure Notes * Provider, Scanning - 07/05/2011 10:08 AM ESTAssociated Order(s): SCAN DOC: STRESS TEST documented in this encounter Plan of Treatment Upcoming Encounters Date Type Department Care Team (Late st Contact Info) Description 03/27/2024 11:00 AM EDT Office Visit Hematology/Oncology at [address] [phone] El Bernardo MD [facility] [place] [address] [address] HEMATOLOGY AND ONCOLOGY [place], [place] [phone] 04/21/2024 8:00 AM EST Appointment Mammography/[place] [address] Linda [address] HEMATOLOGY AND ONCOLOGY [place], [place] [id number] documented as of this encounter Procedures Procedure Name Priority Date/Time Associated Diagnosis Comments STRESS TEST SCAN 07/05/2011 10:0 8 AM EST documented in this encounter Results * SCAN DOC: STRESS TEST (07/05/2011 10:08 AM EST) Anatomical Region Laterality Modality Other Narrative 07/05/2011 10:35 AM EST Procedure Note Provider, Scanning - 07/05/2011 10:08 AM EST Scanning Provider MEDIA MGR SCAN EXT O RDR/RSLT documented in this encounter Visit Diagnoses Diagnosis Breast cancer- Primary Malignant neoplasm of breast (female), unspecified site documented in this encounter Care Teams Group Therapist Relationship Specialty Start Date End Date Michelle Silveira PA PCP - General 05/09/10 08/04/15 documented as of this encounter
--- OUTSIDE RECORDS SUMMARY | 2024-02-27 12:47 | XMS_ITS | Encounter Summary ---
Author Organization [facility] Address [facility] [place] [address] Care Team Providers Care Inhalation Therapy Aide Name Role Phone Dena Alfonso APRN Primary Care Provider Encounter Details Date Type Department Care Team (Late st Contact Info) Description 02/26/2005 Orders [place] [phone] Tahir Griffiths MD [facility] [place] [address] Social History Tobacco Use Types Packs/Day Years [...] AM EDT Office Visit Hematology/Oncology at [address] [phone] El Bernardo MD [facility] [place] [address] Linda Tamayo WOOD STAINER [address] [place] [address] DR HEMATOLOGY AND ONCOLOGY [place], [place] [phone] 04/21/2024 8:00 AM EST Appointment Mammography/[place] [address] Linda Tamayo WOOD STAINER [address] [place] [address] DR [place] [address] documented as of this encounter Procedures Procedure Name Priority Date/Time Associated Diagnosis Comments SURGICAL PATHOLOGY REPORT Routine 02/26/2005 11:29 AM EDT documented in this encounter Results * Surgical Pathology Report (02/26/2005 11:29 AM EDT) Surgical Pathology Report [id number] ? Location: The signing pathologist has (i) examined the relevant preparation(s) for the specimen(s) and (ii) rendered or confirmed the diagnosis(es). . ? Pathology Molecular Genetics Report Results TEST: ??HER2 FISH, BREAST CANCER METHOD: ??Fluorescence in situ hybridization (FISH) with probe for chromosome 17 centromere (17p11.1-q11.1) and locus specific probe for the HER2 gene locus (17q11.2-q12). RESULT: ?NEGATIVE FOR HER2/YEYO AMPLIFICATION ? TOTAL # SIGNALS/TOTAL # NUCLEI COUNTED FOR HER2 PROBE = 81 ? TOTAL # SIGNALS/TOTAL # NUCLEI COUNTED FOR CEP-17 PROBE = 79 ? HER2 TO CEP-17 RATIO = 1.03 ?(NORMAL RANGE <2.0) Interpretation: ??Paraffin-embedded tissue sections were submitted for HER2 gene amplification analysis by FISH. ??Direct analysis was performed using the Formative Labsion Kit. ??Slide adequacy and signal enumeration were evaluated and satisfactory for both control and patient slides. ??The results of this analysis is based on the enumeration of 40 interphase nuclei from non-overlapping tumor cells. ??A signal ratio derived from the HER2 probe and the CEP-17 centromere probe of >2.0 is considered positive for HER2 gene amplification. This test is approved by the U.S.FDA for clinical diagnostic use. El Garg, PH.D. Director, Molecular Pathology _ Verified date: ??03/04/05 ??HAB Verified by: ?Renee Gray MD ? (Electronic Signature) ?Pathology Surgical Pathology Final Report Clinical Information Specimen Submitted: A - Left axilla sentinel lymph nodes. B - Left breast partial mastectomy Clinical History: Left breast Ca. Gross Description A - Labeled/Fixative: Turlock nodes, left axilla; saline. Qty/Size/Weight: ?Multiple, 3.2 x 2.5 x 1.5 cm. Tissue Description: ?? Yellow, lobular adipose tissue. ??Sectioning reveals ?four lymph nodes, the largest 2.0 cm. Sections/Processing: ??(1) three whole lymph nodes; (2-3) one lymph node, ?quadrisected; (4) surrounding adipose. ?? (T4) B - Labeled/Fixative: Left breast partial mastectomy, fresh. Qty/Size/Weight: ?Single, 9.2 x 8.3 x 3.0 cm, 75 g. Radiograph: ? Received, demonstrating a needle localization wire. . Gross Description ?No lesion is visible on the radiograph. Tissue Description: ?? According to the established protocol, the ink ?designations are red (medial), yellow (lateral), ?orange (cranial), green (caudal), black (deep), and ?blue (superficial). Tissue Sections: ?The specimen is serially sectioned perpendicular to ?the long axis from medial (red) to lateral (yellow) ?into eleven slices, each averaging 0.8 cm in ?thickness. Lesion: ? Mass. ? Size: ?2.9 x 2.1 x 1.6 cm. ? Color: ? Alcocer. ? Consistency: ? Firm. ? Location: ?Slices -IX. ? Nearest margin: ?The mass is 1.0 cm from both the deep (black) ?and superficial (blue) margins. ? Other margins: ? The mass is 1.5 cm from the lateral (yellow), ?2.0 cm from the caudal (green), 2.5 cm from the ?cranial (orange), and 3.0 cm from the medial ?(red) margins. Parenchyma: ? The remaining parenchyma consists of dense, lobular, ?cystic, fibrous tissues. Approximately 0.7 cm from ? the mass is a 1.3 x 0.8 x 0.7-cm, ill-defined, firm, ? alcocer area within slice IX. ??This area is approximately ? 0.6 cm from the deep and lateral margins. Wire: ? The needle localization wire is received detached ?from the specimen. Sections/Processing: ??Child Development Instructor of slice I, medial margin en face; (2) ?fuels sales representative of slice II; (3) fuels sales representative of slice III; (4) fuels sales representative of slice IV; (5-6) fuels sales representative of slice V; (7) slice tissue adjacent to mass; (8-9) fuels sales representative of slice ; (10) slice VII, mass to deep margin; (11) slice VII, mass to superficial margin; (12-15) slice VII, tissue caudal to mass; (16-17) tissue cranial to mass; (18) mass to cranial margin; (19) slice VIII, mass to superficial margin; (20) slice VIII mass to deep margin; (21) slice VIII, cranial margin; (22-23) slice VIII, tissue caudal to mass; (24) slice IX mass to adjacent nodule; (25-26) tissue caudal to mass, slice IX; (27-28) slice X, tissue adjacent to mass; (29-31) slice X, caudal tissue with focal hemorrhagic area; (32) fuels sales representative of slice XI, lateral margin en face. (R32) ??aje/SNS Microscopic Description Slides reviewed, microscopic description not recorded. Immunohistochemistry Studies: Interpretation: ??Formalin-fixed, paraffin-embedded tissue sections are studied for CD31 (vascular endothelial marker- B11) using the Avidin-Biotin Complex Technique with appropriate controls. ??A focus suspicious for vascular invasion on H&E is confirmed by this stain. These immunohistochemical studies provide ancillary information and are used only in conjunction with standard diagnostic procedures. Diagnosis A&B - Specimen (s): ? Breast, left, partial mastectomy and left ?axillary sentinel lymph nodes Histologic Type: ?Metaplastic carcinoma with heterologous ? chondroid differentiation Tumor Grade: ?High (High, Intermediate, Low) Oiwfms-Niekq-Npzgswlgc n Score: ??9 ?? Tubular Differentiation: ? 3 ?? Mitotic Rate: ?3 ?? Nuclear Grade: ? 3 Tumor Size: ? 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 Extensive/Minor Component: ?? Minor ?? Grade: ? High (High, Intermediate, Low) . Diagnosis ?? Necrosis: ?Absent (Present / Absent) ?? Pattern(s): ?Solid, within one lobular unit Microcalcifications: ?Rare, associated with benign breast ducts Resection Margins (RM): ?? Invasive Ca (distance, RM): ??1.0 cm- deep (B10) ?Other margins >1.0 cm Angiolymphatic Invasion: ?Present (B11-see immuno studies) Perineural Invasion: ?Not identified Nipple Involvement: ? N/A Correlation Biopsies/Cytology ?? [id number], [id number] (needle biopsies- mass ?and MRI enhancing lesion) Other findings: ? Fibrocystic change including apocrine ?cysts, dense stromal sclerosis, a small papilloma (B3), hemorrhage associated with needle localization wire (tissue slices IX and X), two separate biopsy sites, and two benign intraparenchymal lymph nodes (see Comment). Axillary lymph nodes: Total no. of nodes sampled: ?4 ??No. of non-sentinel nodes: ?0 ??No. of sentinel nodes: ?4 (Specimen(s) A) ?No. positive for carcinoma: 0 (both H&E and CK immunostaining) ?No. with cytokeratin (CK) ? positive cells only: ?? 0 (cells not seen by H&E, see Note*) ?No. negative for carcinoma: 4 (both H&E and CK immunostaining) Estrogen/Progestin receptors: ?? Performed on block B11 ?? ER immunoreactivity: ? Negative (see Diagnostic mohr) ?? ID immunoreactivity: ? Negative (see Diagnostic mohr) HER2/yeyo expression by FISH: ?See separate report pTNM: --- (AJCC, 6th edition, 2003)pT2 N0 MX ? - - - - - - - - - - - - - - - - - - - - - - - - - - - - - Diagnostic mohr for hormone receptors : ?? Negative immunoreactivity: ??No immunostaining ?? Equivocal immunoreactivity: 1-15% tumor cells with immunostaining ?? Positive immunoreactivity: ??>15% tumor cells with immunostaining Note*: ??The clinical significance of cytokeratin (CK) only immunoreactivity in a sentinel node is currently unknown. The two cytokeratin (CK) antibodies routinely used in the evaluation of sentinel nodes are 5D3 and AE1/3. The immunohistochemical studies provide ancillary information and are used only in conjunction with standard diagnostic procedures. CR-0 02/28/05 CCB 03/01/05 Verified by: ? Reyna Donovan, DO ?Pathologist ?(Electronic Signature) The attending pathologist whose signature appears on this report has reviewed all diagnostic slides and has edited the gross and/or microscopic portion of the report in rendering the final pathologic diagnosis. . Comment The tumor mass is associated with a biopsy site (corrosponding to [id number]) in slices VII and VIII. ??Caudal to this there is an area of fullness characterized by dense stromal sclerosis. ??(B14-17). ??In tissue slices IX and X there is a second needle biopsy site ([id number]). ??There are also two benign intraparenchymal lymph nodes adjacent to hemorrhage and neutrophils consistent with the needle localization wire. KANDY FRANCIS 02/26/2005 11:2 9 AM EDT Tahir Griffiths MD PATHOLOGY/CYTOLOGY O NARENDRA KANDY FRANCIS documented in this encounter Visit Diagnoses Not on filedocumented in this encounter Care Teams Inhalation Therapy Aide Relationship Specialty Start Date End Date Dena Alfonso APRN [address] [place] [address] PCP - General Geriatric Medicine 10/12/16 documented as of this encounter
--- OUTSIDE RECORDS SUMMARY | 2024-02-27 12:47 | XMS_ITS | Encounter Summary ---
Author Organization [facility] Address [facility] [place] [address] Care Team Providers Care Binder Folder Operator Name Role Phone Raoul Michelle YADIRA Primary Care Provider [phone] Reason for Visit * Reason Comments Medication Refill Encounter Details Date Type Department Care Team (Late Contact Info) Description 07/07/2011 Refill [place] [phone] Carly Solano MD [facility] [place] [address] Social History Tobacco Use Types Packs/Day Years [...] AM EDT Office Visit Hematology/Oncology at [address] [phone] El Bernardo MD [facility] [place] [address] Linda Tamayo APRN [address] [place] [address] DR [place] [address] 04/21/2024 8:00 AM EST Appointment Mammography/[place] [address] Linda Tamayo APRN [address] [place] [address] DR HEMATOLOGY [place] [address] documented as of this encounter Visit Diagnoses Not on filedocumented in this encounter Care Teams Binder Folder Operator Relationship Specialty Start Date End Date Michelle Silveira PA PCP - General 05/09/10 08/04/15 documented as of this encounter
--- OUTSIDE RECORDS SUMMARY | 2024-02-27 12:47 | XMS_ITS | Encounter Summary ---
Author Organization [facility] Address [facility] [place] [address] Care Team Providers Care Yard Inspector Name Role Phone Dena Alfonso APRN Primary Care Provider Encounter Details Date Type Department Care Team (Late st Contact Info) Description 02/08/2005 [place] [phone] Jai Duque MD [facility] [place] [address] Social History Tobacco Use Types Packs/Day Years [...] AM EDT Office Visit Hematology/Oncology at [address] [phone] El Bernardo MD [facility] [place] [address] Linda Tamayo PERFORMANCE ANALYST [address] [place] [address] DR HEMATOLOGY AND ONCOLOGY [place], [place] [id number] 04/21/2024 8:00 AM EST Appointment Mammography/[place] [phone] Linda Tamayo PERFORMANCE ANALYST [address] [place] [address] DR HEMATOLOGY AND ONCOLOGY [place], [place] [id number] documented as of this encounter Procedures Procedure Name Priority Date/Time Associated Diagnosis Comments SURGICAL PATHOLOGY REPORT Routine 02/08/2005 12:37 PM EDT documented in this encounter Results * Surgical Pathology Report (02/08/2005 12:37 PM EDT) Surgical Pathology Report [id number] ? Location: 4L The signing pathologist has (i) examined the relevant preparation(s) for the specimen(s) and (ii) rendered or confirmed the diagnosis(es). . ?Pathology Surgical Pathology Final Report Clinical Information Specimen Submitted: A - Left breast Clinical History: Left breast area of enhancement on pre-op MRI ? invasive Ca vs DCIS vs FCD Gross Description Specimen: ?Received in two containers. 1 - Labeled/Fixative : ??Left breast, calcs, formalin. Qty/Size/Weight: ? Single needle core biopsy, 1.8 x 0.3 cm, cylindrical ? cores of santizo-white and yellow-white, fatty and ? fibrofatty tissue. Sections/Process ing: ?? Submitted in (A1). 2 - Labeled/Fixative : ??Left breast, no calcs, formalin. Qty/Size/Weight: ? Nine needle core biopsies, ranging from ? 0.4 x 0.3 cm to 2.4 x 0.3 cm, hemorrhagic, ? cylindrical cores of santizo-white and yellow-white, ? fatty and fibrofatty tissue. Sections/Process ing: ?? Submitted in (A2-A3). ??(T3) ??bds/SNS Microscopic Description Slides reviewed, microscopic description not recorded. Diagnosis Needle biopsies: ?Left breast. Diagnosis: ?Ductal heyperplasia with apocrine features, columnar alteration, apocine cysts and stromal sclerosis. Microcalcificati ons: ??Calcified secretions associated with ducts. (see comment) CR-0 02/12/05 CCB 02/12/05 Verified by: ? Reyna Donovan, DO ?Pathologist ?(Electronic Signature) The attending pathologist whose signature appears on this report has reviewed all diagnostic slides and has edited the gross and/or microscopic portion of the report in rendering the final pathologic diagnosis. Comment The tissue block is entirely sectioned and examined. KANDY FRANCIS 02/08/2005 12:3 7 PM EDT Jai Duque MD PATHOLOGY/CYTOLOGY [facility] Performing Organization Address City/State/[facility] Co de Phone Number KANDY FRANCIS documented in this encounter Visit Diagnoses Not on filedocumented in this encounter Care Teams Yard Inspector Relationship Specialty Start Date End Date Dena Alfonso APRN [address] [place] [address] PCP - General Geriatric Medicine 10/12/16 documented as of this encounter
--- OUTSIDE RECORDS SUMMARY | 2024-02-27 12:47 | XMS_ITS | Encounter Summary ---
Author Organization [facility] Address [facility] [place] [address] Care Team Providers Care Hatchery Supervisor Name Role Phone RaoulMichelle YADIRA Primary Care Provider [phone] Encounter Details Date Type Department Care Team (Late Contact Info) Description 08/20/2011 Telephone Cardiology at [address] [phone] Sobeida Taylor, RN Social History Tobacco Use Types Packs/Day [...] encounter Miscellaneous Notes * Telephone Encounter - Sobeida Taylor RN - 08/20/2011 4:45 PM EST She had a cardiac cath on . Post cath she was instructed to double Coreg dose to 6.25mg twice aday. She relates she is exhausted. Has trouble doing housework due to fatigue, gets sweaty doing anything. Does not have any means to monitor her BP. Per Sydney Nix have her cut back to 3.125mg in the am/ 6.25mg at night. She will stop by the pharmacy and get a BP done, call if hypotensive, or if symptoms not improved. Scheduled for follow up with Pratibha on 09/05/11. Has appt with Dr. Orourke in [place] on October 04 documented in this encounter Plan of Treatment Upcoming Encounters Date Type Department Care Team (Late st Contact Info) Description 03/27/2024 11:00 AM EDT Office Visit Hematology/Oncology at [address] [phone] El Bernardo MD [facility] [place] [address] [address] HEMATOLOGY AND ONCOLOGY [place], [place] [address] 04/21/2024 8:00 AM EST Appointment Mammography/[place] [address] HEMATOLOGY AND ONCOLOGY [place], [place] [id number] documented as of this encounter Visit Diagnoses Not on filedocumented in this encounter Care Teams Hatchery Supervisor Relationship Specialty Start Date End Date Michelle Silveira PA PCP - General 05/09/10 08/04/15 documented as of this encounter
--- OUTSIDE RECORDS SUMMARY | 2024-02-27 12:47 | XMS_ITS | Encounter Summary ---
Author Organization [facility] Address [facility] [place] [address] Care Team Providers Care Pile Driving Supervisor Name Role Phone Raoul Michelle YADIRA Primary Care Provider Reason for Visit * Reason Onset Date Comments Urticaria 08/22/2011 Encounter Details Date Type Department Care Team (Late st Contact Info) Description 08/22/2011 Telephone Cardiology at [address] [phone] Sobeida Taylor RN Urticaria Social History Tobacco Use Types Packs/Day Years [...] Telephone Encounter - Sobeida Taylor RN - 08/22/2011 4:30 PM EST She woke at 4 am today covered with rash over most of her body. Red, raised, itchy. Went to her local ED and was given a Medrol dose-pack and told to call Cardiology. They did not give an opinion if this could be medication related. Cardiac cath 1 week ago. Coreg dose was increased to 6.25mg BID, then cut back on 08/19 to 3.125mg am/ 6.25 mg pm. Patient feels this is related to Coreg. Spoke with Sydney Nix--will hold Coreg. Call back on Saturday to report how she is. If rash resolved can call in script for Metoprolol Succinate 50 mg daily. Has scheduled follow-up on 09/04 documented in this encounter Plan of Treatment Upcoming Encounters Date Type Department Care Team (Late st Contact Info) Description 03/27/2024 11:00 AM EDT Office Visit Hematology/Oncology at [address] [phone] El Bernardo MD [facility] [place] [address] [address] HEMATOLOGY [place] [address] 04/21/2024 8:00 AM EST Appointment Mammography[place] [address] [address] HEMATOLOGY AND ONCOLOGY [place], [place] [phone] documented as of this encounter Visit Diagnoses Not on filedocumented in this encounter Care Teams Pile Driving Supervisor Relationship Specialty Start Date End Date Michelle Silveira PA PCP - General 05/09/10 08/04/15 documented as of this encounter
--- OUTSIDE RECORDS SUMMARY | 2024-02-27 12:47 | XMS_ITS | Encounter Summary ---
Author Organization [facility] Address [facility] [place] [address] Care Team Providers Care Clod Puller Name Role Phone Raoul Michelle YADIRA Primary Care Provider [phone] Encounter Details Date Type Department Care Team (Late st Contact Info) Description 08/15/2011 8:30 AM EST - 08/15/2011 9:30 AM EST Surgery [employer] [place] [phone] Juan Ramon Barnes MD [facility] [place] [address] CARDIAC CATHETERIZATION Social History Tobacco Use Types Packs/Day Years [...] Sign Reading Time Taken Comments Blood Pressure 110/74 08/15/2011 7:46 AM EST Pulse 71 08/15/2011 7:46 AM EST Temperature 36.5 ??C (97.7 ??F) 08/15/2011 7:46 AM ES T Respiratory Rate 18 08/15/2011 7:46 AM EST Oxygen Saturation 95% 08/15/2011 7:46 AM EST Inhaled Oxygen Concentration - - Weight 86.2 kg (190 lb) 08/15/2011 8:03 AM EST Height 167.6 cm (5' 6) 08/15/2011 8:03 AM EST Body Mass Index 30.67 08/15/2011 8:03 AM EST documented in this encounter Discharge Instructions * Discharge Instructions* Ana Snow RN - 08/15/2011 2:27 PM EST Activity If you are discharged the same day as your procedure, do not drive yourself home. Arrange to have another person drive. You may walk around when you get home, but keep your activity at a minimum until the morning. Do not bend over, strain, or lift heavy objects for 24 hours after the procedure. Do not participate in active sports for 48 hours. You may engage in sexual activity after 48 hours. These restrictions will not apply if the catheter was placed in a blood vessel in your arm. Catheter Insertion Area Care Take the band-aid off the catheter insertion area the morning following the procedure. You may takea shower if you wish. Wash the area with soap and water. Look for signs of infection over the next several days. A little spot of blood at the catheter insertion area is not unusual. A bruise or small lump under the skin is normal; they generally disappear in 3-4 days. For the first several days at home if you cough or sneeze, hold your groin to help prevent bleeding. Expect some mild tenderness over the area where the catheter was inserted. You will notice this after the local anesthetic (numbing medicine) wears off. This should improve during the 24-48 hours after the procedure. Take tylenol if needed. Contact your doctor if the discomfort worsens. Problems to Watch For If there is bright red blood flowing from the catheter insertion area: *stop what you are doing and lie down *Hold pressure steadily on the area for 15 minutes *Call for Help *If the bleeding does not stop in 15 minutes call 911 for an ambulance. If there is swelling with black and blue color at the catheter insertion area, there may be bleeding inside. Contact the doctor if there is any increase in size. Look at the insertion site for the first few days at home. Signs of infection are: *redness *Swelling *Yellow, white, green or brown foul smelling drainage. *increased soreness If you think there is an infection, take your temperature. Then call your doctor. The limb on the side where you had your catheterization should look and feel normal in its color, sensation, and temperature. If your leg becomes cool, pale, blue or changing color with numbness and tingling, contact your doctor. If you feel faint or dizzy, lie down with your feet elevated. Have someone call the doctor. If you are alert, drink fluids. How to Deal with Chest pain If you had only the cardiac catheterization, treat any angina or chest discomfort as instructed. Stop what you are doing, and sit or lie down. If prescribed, take nitroglycerin under your tongue. If the angina isn't relieved, take another nitroglycerine in 5 minutes. After another 5 minutes, a third nitroglycerine may be taken. If the angina isn't improved you should call for an ambulance to bring you to the nearest hospital emergency room. If your angina is more frequent or more sever than before, contact your doctor. We usually would not expect to have angina after an angioplasty. If you do get angina, treat it as you did before but also contact your doctor. Return to Work The doctor will usually have told you when to return to work. If you do not perform heavy physical labor, most people can return to work in a few days. Diet Follow your previous diet unless otherwise instructed. Cardiac Risk Factors If you have coronary artery disease, it is important that you help control it by reducing your cardiac risk factors. If you smoke, we urge you to stop now. If you think this is going to be a problem,let us know so that we may help you. We have dieticians who can help you learn about low fat, low cholesterol diet. Cardiac rehabilitation programs can help you set up a regular exercise program. Work with your doctor if you have high blood pressure or sugar diabetes to keep these under control. Medications ____Take your usual medications ____Medication changes: If you are taking medicines prescribed by your doctor, do not take any [id number] medicines or herbal preparations without first discussing this with your doctor or pharmacist. There is the possibility of side effect and interactions when these are combined. Follow up Care Who to Call with Questions or Problems If there are any questions or problems that you think might be related to your cardiac cath or angioplasty, contact the occupational ther computing consultant by calling [facility] at . documented in this encounter Medications at Time of Discharge Medication Sig Dispensed Refills Start Date End Date carvedilol (COREG) 3.125 mg tabletIndications:CHF (congestive heart failure) Take 1 tablet by mouth 2 times daily (with meals). 180 tablet 3 08/08/2011 08/17/2011 traMADol (ULTRAM) 50 mg tablet Take 50 mg by mouth every 6 hours as needed. 12/16/2011 ibuprofen (ADVIL;MOTRIN) 200 mg tablet Take 800 mg by mouth every 6 hours as needed. 07/03/2013 LORazepam (ATIVAN) 1 mg tablet Take 1 mg by mouth nightly as needed. Reported on 10/12/2016 03/11/2017 ESTRADIOL (VAGIFEM) 10 mcg Tab 10 MCG = 1 Tablet(s), Vag, twice weekly 07/03/2010 12/14/2011 documented as of this encounter H&P Notes * Darius Goss MD - 08/15/2011 9:01 AM EST Complete Adult Pre-Procedural H&P Patient Name: Rebeca Hernández : [id number] y.o. MR#: [id number] Chief Complaint: PASCAL Planned Procedure: RHC and LHC History of Present Illness: HPI 49 yo with PMH breast ca s/p left partial mastectomy and chemo with Doxorubicin, Cytoxan~ 7 years ago, obesity, IGT who presents with PASCAL, palpitations with presyncope, occ exertional chest tightness and depressed EF on echo. Had negative ETT 06/28 at [facility]. OSH echo with EF 45% and mild global hy pokinesis, moderate apical hypokinesis, mild LVH. I have reviewed and updated as necessary the Medical, Surgical, Family, and Social History capturedwithin the EMR. I have reviewed and updated as necessary the patient's allergies and current medication list withinthe EMR. Review of Systems: Review of Systems Physical Exam: Filed Vitals: 08/15/11 0746 08/15/11 0803 BP: 110/74 Pulse: 71 Temp: 36.5 ??C (97.7 ??F) TempSrc: Oral Resp: 18 Height: 167.6 cm (5' 6) Weight: 86.183 kg (190 lb) SpO2: 95% Physical Exam Constitutional: She is oriented to person, place, and time. She appears well- developed and well-nourished. No distress. HENT: Head: Normocephalic and atraumatic. Mouth/Throat: Oropharynx is clear and moist. Eyes: Conjunctivae are normal. Pupils are equal, round, and reactive to light. Neck: Normal range of motion. No JVD present. Cardiovascular: Normal rate, regular rhythm, normal heart sounds and intact distal pulses. No murmur heard. Pulmonary/Chest: Effort normal and breath sounds normal. Abdominal: Soft. Bowel sounds are normal. Musculoskeletal: Normal range of motion. She exhibits no edema and no tenderness. Neurological: She is alert and oriented to person, place, and time. Skin: Skin is warm and dry. She is not diaphoretic. Psychiatric: Her behavior is normal. Recent Results (from the past 24 hour(s)) CBC (WITH DIFF) Component Value Range ??? WBC 4.8 4.0 - 10.0 (x10(3)/mcL) ??? RBC 4.50 3.93 - 5.22 (x10(6)/mcL) ??? Hemoglobin 13.6 11.2 - 15.7 (gm/dL) ??? Hematocrit 39.8 34.0 - 45.0 (%) ??? MCV 88.4 79.0 - 94.0 (fL) ??? MCH 30.2 26.6 - 32.2 (pg) ??? MCHC 34.2 32.0 - 36.5 (gm/dL) ??? Platelets 287 145 - 370 (x10(3)/mcL) ??? RDWSD 43.8 35.0 - 46.0 (fL) ??? RDWCV 13.5 10.9 - 14.4 (%) ??? MPV 10.3 9.0 - 12.0 (fL) TSH Component Value Range ??? TSH 0.79 0.27 - 4.20 (mcIU/mL) BASIC METABOLIC PANEL (NON-FASTING) Component Value Range ??? Glucose Lvl 136 60 - 199 (mg/dL) ??? BUN 12 8 - 18 (mg/dL) ??? Creatinine 0.73 0.70 - 1.20 (mg/dL) ??? Sodium 141 135 - 145 (mmol/L) ??? Potassium 4.5 3.5 - 5.0 (mmol/L) ??? Chloride 104 98 - 107 (mmol/L) ??? CO2 28 22 - 31 (mmol/L) ??? Anion Gap 9 5 - 15 (mmol/L) ??? Calcium 9.1 8.5 - 10.5 (mg/dL) ? ? Estimated GFR >60 >=60 PROTHROMBIN TIME Component Value Range ??? PT 12.0 11.9 - 14.7 (sec) ??? INR 0.9 0.9 - 1.1 HEPATIC FUNCTION PANEL Component Value Range ??? Total Protein 7.1 6.4 - 8.3 (gm/dL) ??? Albumin 4.3 3.2 - 5.2 (gm/dL) ??? AST 26 0 - 30 (unit/L) ??? ALT 23 0 - 30 (unit/L) ??? Alk Phos 70 40 - 104 (unit/L) ??? Total Bilirubin 0.3 0.2 - 1.3 (mg/dL) ??? Bili, Direct 0.1 0.0 - 0.3 (mg/dL) DIFFERENTIAL, AUTOMATED Component Value Range ??? Neutrophils % 53.0 34.0 - 71.0 (%) ??? Neutr Abs (ANC) 2.52 1.50 - 6.30 (x10(3)/mcL) ??? Lymphocytes % 35.9 19.0 - 53.0 (%) ??? Lymphocytes Abs 1.7 1.0 - 3.6 (x10(3)/mcL) ??? Monocytes % 7.6 4.0 - 13.0 (%) ??? Monocyte Abs 0.4 0.2 - 1.0 (x10(3)/mcL) ??? Eosinophils % 2.7 0.0 - 7.0 (%) ??? Eosinophils Abs 0.1 0.0 - 0.5 (x10(3)/mcL) ??? Basophils % 0.6 0.0 - 2.0 (%) ??? Basophils Abs 0.0 0.0 - 0.2 (x10(3)/mcL) ??? Immature Gran % 0.20 0.00 - 0.66 (%) ??? Louann Gran Abs 0.01 0.00 - 0.05 (x10(3)/mcL) Assessment and Plan: 50 yo with PASCAL and EF 45% on echo with global hypokinesis: Plan: RHC and LHC today This procedure has been fully reviewed with the patient and written informed consent has been obtained. DARIUS GOSS MD 08/15/2011 documented in this encounter Procedure Notes * Provider, Scanning - 08/16/2011 1:13 AM ESTAssociated Order(s): SCAN DOC: CARDIAC CATH * Juan Ramon Barnes MD - 08/15/2011 10:39 AM ESTProcedure(s): CARDIAC CATHETERIZATION [facility] Final [facility] [place], [place] Patient Name: Rebeca Hernández ID#: [id number] : 1960 Procedure Date: August 15, 2011 Case #: [id number] Room: 1 Case Physician: Juan Ramon Barnes M.D. Start: 09:38 Fellow: Darius Goss M.D. Admission: 08/15/2011 Referring Physician: Michelle Silveira Procedures: * Coronary Angiography * Left Heart Catheterization * Left Ventriculography * Peripheral Angiography History Rebeca Hernández is a 50 year old woman. She had diabetes controlled by diet. The patient had a history of chest pain. She had a history of dyspnea with NYHA functional class II. The patient had a history of cancer. She also had a history of an abnormal echocardiogram. Prior to the initiation of this procedure, the patient was designated as ASA Class II. Technique: A 6Fr sheath was inserted in the right femoral artery utilizing the Seldinger technique. Left ventriculography was performed with a 6Fr Angled pigtail catheter. The left coronary artery was injected utilizing a 6Fr JL 4 catheter. A 6Fr JR 4 catheter was used to inject the right coronary artery. 2,000 units of heparin were administered. A total of 150cc of Omnipaque were opened, 100cc of Omnipaque were administered and 50cc of Omnipaque were wasted. Hemodynamics: Left Heart Pressures Resting: Syst Diast EDP a v m Ao 108 66 87 LV 108 12 Post Contrast: Syst Diast EDP a v m Ao 122 76 97 LV 120 13 Left Ventriculography: Segmental Wall Motion Anterobasal Anterolater Apical Mid Inferobasal normal mild mild normalor normal hypokinesis hypokinesis Estimated LV Ejection Fraction: 55% Coronary Angiography: Dominance: Right Left Main The left main was normal. Left Anterior Descending The left anterior descending (LAD) was normal. Left Circumflex The left circumflex (LCX) was normal. Right Coronary Artery The right coronary artery (RCA) was normal. Conclusions: * Normal coronary arteries * Normal left ventricular ejection fraction (EF-55%) Complications/Events: The patient had no complications during these procedures. Comments: Peripheral Angiography: Femoral and retrograde iliac angiography performed for assessment of peripheral vascular disease via the R femoral sheath placed selectively in the common femoral artery and separate injection of contrast. There is mild diffuse atherosclerosis of the R external iliac artery, common femoral artery, profunda and superficial femoral artery. The attending physician was present for the entire procedure. Dr. Juan Ramon Barnes M.D. performed the coronary angiography, peripheral angiography, left heart catheterization and left ventriculography. Juan Ramon Barnes M.D. Electronically Signed by: Juan Ramon Barnes M.D. Report Finalized: 08/15/2011 10:37 documented in this encounter Miscellaneous Notes * Miscellaneous - Provider, Scanning - 08/16/2011 1:19 AM EST * Miscellaneous - Provider, Scanning - 08/16/2011 1:13 AM EST * Miscellaneous - Provider, Scanning - 08/15/2011 7:26 AM EST documented in this encounter Plan of Treatment Upcoming Encounters Date Type Department Care Team (Late st Contact Info) Description 03/27/2024 11:00 AM EDT Office Visit Hematology/Oncology at [address] [phone] El Bernardo MD [facility] [place] [address] [address] HEMATOLOGY AND ONCOLOGY [place], [place] [id number] 04/21/2024 8:00 AM EST Appointment Mammography/[place] [phone] Linda Tamayo[address] HEMATOLOGY AND ONCOLOGY [place], [place] [phone] documented as of this encounter Procedures Procedure Name Priority Date/Time Associated Diagnosis Comments CARDIAC CATH SCAN 08/16/2011 1:1 3 AM EST EKG 12-LEAD Routine 08/15/2011 9:40 AM EST Chest pain CARDIAC CATHETERIZATION 08/15/19 12 9:13 AM EST Chest pain Cardiomyopathy DIFFERENTIAL, AUTOMATED Routine 08/15/19 12 7:30 AM EST PROTHROMBIN TIME Routine 08/15/2011 7:30 AM EST CHF (congestive heart failure) CBC (WITH DIFF) Routine 08/15/2011 7:30 AM EST CHF (congestive heart failure) TSH Routine 08/15/2011 7:30 AM EST CHF (congestive heart failure) HEPATIC FUNCTION PANEL Routine 2 7:30 AM EST CHF (congestive heart failure) BASIC METABOLIC PANEL Routine 08/15/2011 7:30 AM EST CHF (congestive heart failure) documented in this encounter Results * SCAN DOC: CARDIAC CATH (08/16/2011 1:13 AM EST) Anatomical Region Laterality Modality Other Narrative 08/16/2011 1:31 AM EST Procedure Note Provider, Scanning - 08/16/2011 1:13 AM EST Scanning Provider MEDIA MGR SCAN EXT O RDR/RSLT * EKG 12 Lead (08/15/2011 9:40 AM EST) Ventricular rate 63 BPM MUSE SYSTEM Atrial Rate 63 BPM MUSE SYSTEM P-R Interval 166 ms MUSE SYSTEM QRS Duration 92 ms MUSE SYSTEM Q-T Interval 438 ms MUSE SYSTEM QTC Calculated (Bezet) 448 ms MUSE SYSTEM Calculated P [place] 65 degrees MUSE SYSTEM Calculated R [place] 63 degrees MUSE SYSTEM Calculated T [place] 51 degrees MUSE SYSTEM INTERPRETATION Normal sinus rhythm Normal ECG When compared with ECG of 26-OCT-2008 02:11, No significant change was found Confirmed by fellow MD Adolfo, Jeremiah ([id number]) on 08/15/2011 10:17:16 AM Confirmed by MD Leonel, Efraín ([id number]) on 08/15/2011 1:25:50 PM MUSE SYSTEM 08/15/2011 9:40 AM EST 08/15/2011 1:25 PM EST Jeevan Orourke MD ECG ORDERABLES MUSE SYSTEM * DIFFERENTIAL, AUTOMATED (08/15/2011 7:30 AM EST) Neutrophil % 53.0 34.0 - 71.0 % CERNER MILLENNIUM Neutrophil Absolute 2.52 1.50 - 6.30 x10(3)/mcL CERNER MILLENNIUM Lymph % 35.9 19.0 - 53.0 % CERNER MILLENNIUM Lymphocytes Abs 1.7 1.0 - 3.6 x10(3)/mcL CERNER MILLENNIUM Monocyte % 7.6 4.0 - 13.0 % CERNER MILLENNIUM Monocyte Abs 0.4 0.2 - 1.0 x10(3)/mcL CERNER MILLENNIUM Eos % 2.7 0.0 - 7.0 % CERNER MILLENNIUM Eosinophils Abs 0.1 0.0 - 0.5 x10(3)/mcL CERNER MILLENNIUM Basophil % 0.6 0.0 - 2.0 % CERNER MILLENNIUM Baso Absolute 0.0 0.0 - 0.2 x10(3)/mcL CERNER MILLENNIUM Immature Gran % 0.20 0.00 - 0.66 % CERNER MILLENNIUM Comment: Immature granulocytes(IG's)percentage and absolute count will include metamyelocytes, myelocytes, and promyelocytes. Blood smears from CBCs yielding IG's will be scanned manually for concordance. If this scan disagrees with the automated IG or if promyelocytes are noted, a manual differential will be performed. Immature Gran Absolute 0.01 0.00 - 0.05 x10(3)/mcL CERNER MILLENNIUM Blood specimen (specimen) 08/15/2011 7:30 AM EST 08/15/2011 7:50 AM EST Jeevan Orourke MD HEMATOLOGY ORDERAB LES Performing Organization Address [facility] Co de Phone Number KANDY DUENASENNIUM * Hepatic Function Panel (08/15/2011 7:30 AM EST) Protein, Total 7.1 6.4 - 8.3 gm/dL CERNER MILLENNIUM Albumin 4.3 3.2 - 5.2 gm/dL CERNER MILLENNIUM Aspartate Aminotransferase 26 0 - 30 unit/L CERNER MILLENNIUM Alanine Aminotransferase 23 0 - 30 unit/L CERNER MILLENNIUM Alkaline Phosphatase 70 40 - 104 unit/L CERNER MILLENNIUM Bilirubin, Total 0.3 0.2 - 1.3 mg/dL CERNER MILLENNIUM Bilirubin, Direct 0.1 0.0 - 0.3 mg/dL CERNER MILLENNIUM Blood specimen (specimen) 08/15/2011 7:30 AM EST 08/15/2011 7:50 AM EST Narrative Resulting Agency Comment Spec In Lab Jeevan Orourke MD CHEMISTRY ORDERABL ES Performing Organization Address [facility] Co de Phone Number CERBLANCA DUENASENNIUM * Prothrombin Time (08/15/2011 7:30 AM EST) Prothrombin Time 12.0 11.9 - 14.7 sec CERNER MILLENNIUM Comment: [facility] Transfusion Committee Guidelines: INR less than 2.0, PTT less than OR equal to 43.5 seconds, or Fibrinogen greater than or equal to 100 mg/dl indicate adequate procoagulant activity for hemostasis in patients without underlying bleeding disorders. International Normalization Ratio 0.9 0.9 - 1.1 CERNER MILLENNIUM Blood specimen (specimen) 08/15/2011 7:30 AM EST 08/15/2011 7:50 AM EST Narrative Resulting Agency Comment Spec In Lab Jeevan Orourke MD HEMATOLOGY ORDERAB LES CERNER MILLENNIUM * Basic Metabolic Panel (non-fasting) (08/15/2011 7:30 [...] Lab Jeevan Orourke MD CHEMISTRY ORDERABL ES Performing Organization Address [facility] Phone Number [facility] * TSH (08/15/2011 7:30 AM EST) Thyroid Stimulating Hormone 0.79 0.27 - 4.20 mcIU/mL [facility] Blood specimen (specimen) 08/15/2011 7:30 AM EST 08/15/2011 7:50 AM EST Narrative Resulting Agency Comment Spec In Lab Jeevan Orourke MD CHEMISTRY ORDERABL ES Performing Organization Address [facility] Number [facility] * CBC (with Diff) (08/15/2011 7:30 AM EST) White Blood Cell 4.8 4.0 - 10.0 x10(3)/mcL CERNER MILLENNIUM Red Blood Cell 4.50 3.93 - 5.22 x10(6)/mcL CERNER MILLENNIUM Hemoglobin 13.6 11.2 - 15.7 gm/dL CERNER MILLENNIUM Hematocrit 39.8 34.0 - 45.0 % CERNER MILLENNIUM Mean Cell Volume 88.4 79.0 - 94.0 fL CERNER MILLENNIUM Mean Cell Hemoglobin 30.2 26.6 - 32.2 pg CERNER MILLENNIUM Mean Cell Hemoglobin Concentration 34.2 32.0 - 36.5 gm/dL CERNER MILLENNIUM Platelet 287 145 - 370 x10(3)/mcL CERNER MILLENNIUM RDW Standard Deviation 43.8 35.0 - 46.0 fL CERNER MILLENNIUM RDW coefficient of variation 13.5 10.9 - 14.4 % CERNER MILLENNIUM Mean Platelet Volume 10.3 9.0 - 12.0 fL CERNER MILLENNIUM Blood specimen (specimen) 08/15/2011 7:30 AM EST 08/15/2011 7:50 AM EST Narrative Resulting Agency Comment Spec In Lab Jeevan Orourke MD HEMATOLOGY ORDERAB LES KANDY FRANCIS documented in this encounter Visit Diagnoses Diagnosis CHF (congestive heart failure) Congestive heart failure, unspecified Chest pain Chest pain, unspecified Cardiomyopathy Other primary cardiomyopathies Chest pain Chest pain, unspecified Cardiomyopathy Other primary cardiomyopathies documented in this encounter Administered Medications Inactive Administered Medications - up to 3 most recent administrations Medication Order MAR Action Action Date Dose Rate Site fentaNYL (PF) 50 mcg/mL injection 1 dose, Starting on Sat08/15/11 at 1047, Until Sat08/15/11 at 1040, JULITA APIGO: Cabinet Override fentaNYL 50mcg/mL injection ONCE PRN, Starting on Sat08/15/11 at 0948, Until Sat08/15/11 at 1030, Pain, Cath (Intra-Procedure), Routine Given 08/15/2011 10:40 AM EST 25 mcg Given 08/15/2011 9:48 AM EST 25 mcg heparin (porcine) injection ONCE PRN, Starting on Sat08/15/11 at 0959, Until 2/29/12 at 1658, Intra-Operative (Intra-Procedure), Routine Given 08/15/2011 9:59 AM EST 2,000 Units iohexol (OMNIPAQUE) 350 mg/mL injection ONCE PRN, Starting on Sat08/15/11 at 1023, Until Sat08/15/11 at 1658, Per Protocol, Cath (Intra-Procedure), Routine Given 08/15/2011 10:23 AM EST 100 mLs midazolam (VERSED) injection ONCE PRN, Starting on Sat08/15/11 at 0949, Until Sat08/15/11 at 1030, Sleep, Cath (Intra-Procedure), Routine Given 08/15/2011 9:49 AM EST 1 mg sodium chloride 0.9% infusion 200 mL/hr, Intravenous, CONTINUOUS, Starting on Sat08/15/11 at 1045, Until Sat08/15/11 at 1444 New Bag 08/15/2011 10:45 AM EST 200 mL/hr 200 mL/hr documented in this encounter Active and Recently Administered Medications Times are shown in EST. Continuous Medication Order 08/13/2011 08/14/2011 08/15/2011 sodium chloride 0.9% infusion () 200 mL/hr, Intravenous, CONTINUOUS, Starting on Sat08/15/11 at 1045, Until Sat08/15/11 at 1444 1045 (New Bag - Prov ider: Julita Dietrich RN) PRN Medication Order 08/13/2011 08/14/2011 08/15/2011 fentaNYL 50mcg/mL injection (CANCELED) ONCE PRN, Starting on Sat08/15/11 at 0948, Until Sat08/15/11 at 1030, Pain, Cath (Intra-Procedure), Routine 0948 (Given - Provid er: Rosalia Boateng RN)1040 (Given - Provider: Julita Dietrich RN - Comment: doing manual hold for the groin) heparin (porcine) injection (CANCELED) ONCE PRN, Starting on Sat08/15/11 at 0959, Until Sat08/15/11 at 1658, Intra-Operative (Intra-Procedure), Routine 0959 (Given - Provid er: Juan Ramon Barnes MD) iohexol (OMNIPAQUE) 350 mg/mL injection (CANCELED) ONCE PRN, Starting on Sat08/15/11 at 1023, Until Sat08/15/11 at 1658, Per Protocol, Cath (Intra-Procedure), Routine 1023 (Given - Provid er: Juan Ramon Barnes MD) midazolam (VERSED) injection (CANCELED) ONCE PRN, Starting on Sat08/15/11 at 0949, Until Sat08/15/11 at 1030, Sleep, Cath (Intra-Procedure), Routine 0949 (Given - Provid er: Rosalia Boateng RN) documented in this encounter Care Teams Clod Puller Relationship Specialty Start Date End Date Michelle Silveira PA PCP - General 05/09/10 08/04/15 documented as of this encounter
--- OUTSIDE RECORDS SUMMARY | 2024-02-27 12:47 | XMS_ITS | Encounter Summary ---
Author Organization [facility] Address [facility] [place] [address] Care Team Providers Care Irrigation Teacher Name Role Phone Raoul Michelle YADIRA Primary Care Provider [phone] Encounter Details Date Type Department Care Team (Latest Contact Info) Description 08/15/2011 6:58 AM EST - 08/15/2011 2:50 PM EST Hospital Encounter [place] [address] [facility] [place] [address] [facility] [place] [address] CHF (congestive heart failure); Chest pain; Cardiomyopathy Discharge Disposition: Home Social History Tobacco [...] Sign Reading Time Taken Comments Blood Pressure 125/81 08/15/2011 2:00 PM EST Pulse 74 08/15/2011 2:00 PM EST Temperature 36.5 ??C (97.7 ??F) 08/15/2011 7:46 AM ES T Respiratory Rate 16 08/15/2011 2:00 PM EST Oxygen Saturation 95% 08/15/2011 2:00 PM EST Inhaled Oxygen Concentration - - Weight 86.2 kg (190 lb) 08/15/2011 8:03 AM EST Height 167.6 cm (5' 6) 08/15/2011 8:03 AM EST Body Mass Index 30.67 08/15/2011 8:03 AM EST documented in this encounter Discharge Instructions * Discharge Instructions* Ana Snow, RN - 08/15/2011 2:27 PM EST Activity [...] by your doctor, do not take any hokg-rnl-qoiksmv medicines or herbal preparations without first discussing this with your doctor or pharmacist. There is the possibility of side effect and interactions when these are combined. Follow up Care Who to Call with Questions or Problems If there are any questions or problems that you think might be related to your cardiac cath or angioplasty, contact the drilling engineering manager media relations director by calling [facility] at . documented in this encounter Medications [...] Pre-Procedural H&P Patient Name: Rebeca Hernández : [id number] y.o. MR#: [id number] Chief Complaint: PASCAL Planned Procedure: RHC and LHC History of Present Illness: HPI 49 yo with PMH breast ca s/p left partial mastectomy and chemo with Doxorubicin, Cytoxan~ 7 years ago, obesity, IGT who presents with PASCAL, palpitations with presyncope, occ exertional chest tightness and depressed EF on echo. Had negative ETT 06/28 at [facility]. OSH echo with EF 45% and [...] - 08/15/2011 10:39 AM ESTProcedure(s): CARDIAC CATHETERIZATION [facility] [place], [place] Patient Name: Rebeca Hernández ID#: [id number] : 1960 Procedure Date: August 15, 2011 [...] AM EDT Office Visit Hematology/Oncology at [address] [phone] El Bernardo MD [facility] [place] [address] [address] [place] [address] 04/21/2024 8:00 AM EST Appointment Mammography/[place] [address] [address] HEMATOLOGY AND ONCOLOGY [place], [place] [id number] documented as of this encounter Procedures Procedure [...] (Bezet) 448 ms MUSE SYSTEM Calculated P Ursa 65 degrees MUSE SYSTEM Calculated R Ursa 63 degrees MUSE SYSTEM Calculated T Ursa 51 degrees MUSE SYSTEM INTERPRETATION Normal sinus rhythm Normal ECG When compared with ECG of 26-OCT-2008 02:11, No significant change was found Confirmed by fellow MD Adolfo, Jeremiah ([id number]) on 08/15/2011 10:17:16 AM Confirmed by MD [...] EST Jeevan Orourke MD HEMATOLOGY ORDERAB LES CERNER MILLENNIUM * Hepatic Function Panel (08/15/2011 7:30 AM [...] MD CHEMISTRY ORDERABL ES Performing Organization Address [facility] de Phone Number KANDY FRANCIS * Prothrombin Time (08/15/2011 7:30 AM EST) Prothrombin Time 12.0 11.9 - 14.7 sec CERNER MILLENNIUM Comment: [facility] Transfusion Committee Guidelines: INR less than 2.0, [...] Lab Jeevan Orourke MD HEMATOLOGY ORDERAB LES Performing Organization Address [facility] Phone Number KANDY FRANCIS * Basic Metabolic Panel (non-fasting) (08/15/2011 7:30 [...] Est Glomerular Filtration Rate >60 >=60 [facility] Comment: The National Kidney Disease Education Program [...] MD CHEMISTRY ORDERABL ES Performing Organization Address [facility] de Phone Number [facility] * TSH (08/15/2011 7:30 AM EST) Thyroid Stimulating Hormone 0.79 0.27 - 4.20 mcIU/mL [facility] Blood specimen (specimen) 08/15/2011 7:30 AM EST 08/15/2011 7:50 AM EST Narrative Resulting Agency Comment Spec In Lab Jeevan Orourke MD CHEMISTRY ORDERABL ES Performing Organization Address [facility] de Phone Number KANDY FRANCIS * CBC (with Diff) (08/15/2011 7:30 AM [...] at 1047, Until Sat08/15/11 at 1040, JULITA COLIN: Cabinet Override fentaNYL 50mcg/mL injection ONCE PRN, Starting on Sat08/15/11 at 0948, Until Sat08/15/11 at 1030, Pain, Cath (Intra-Procedure), Routine Given 08/15/2011 10:40 AM EST 25 mcg Given 08/15/2011 9:48 AM EST 25 mcg sodium chloride 0.9% infusion 200 mL/hr, Intravenous, [...] 1045 (New Bag - Prov ider: Julita Colin RN) PRN Medication Order 08/13/2011 08/14/2011 08/15/2011 fentaNYL 50mcg/mL injection (CANCELED) ONCE PRN, Starting on Sat08/15/11 at 0948, Until Sat08/15/11 at 1030, Pain, Cath (Intra-Procedure), Routine 0948 (Given - Provid er: Rosalia Boateng RN)1040 (Given - Provider: Julita Colin RN - Comment: doing manual hold for [...] RN) documented in this encounter Care Teams Irrigation Teacher Relationship Specialty Start Date End Date Michelle Silveira PA PCP - General 05/09/10 08/04/15 documented as of this encounter
--- OUTSIDE RECORDS SUMMARY | 2024-02-27 12:47 | XMS_ITS | Encounter Summary ---
Author Organization [facility] Address [facility] [place] [address] Care Team Providers Care Reference Librarian Name Role Phone Dena Alfonso APRN Primary Care Provider Encounter Details Date Type Department Care Team (Late st Contact Info) Description 01/25/2005 [place] [phone] Deisy Bangura MD [facility] [place] [address] Social History Tobacco Use Types Packs/Day Years [...] AM EDT Office Visit Hematology/Oncology at [address] [phone] El Bernardo MD [facility] [place] [address] Linda Tamayo [address] HEMATOLOGY AND ONCOLOGY [place], [place] [id number] 04/21/2024 8:00 AM EST Appointment Mammography/[place] [address] Linda Tamayo [employer] [address] [place] [address] DR HEMATOLOGY [place] [address] documented as of this encounter Procedures Procedure Name Priority Date/Time Associated Diagnosis Comments SURGICAL PATHOLOGY REPORT Routine 01/25/2005 5:38 PM EDT documented in this encounter Results * Surgical Pathology Report (01/25/2005 5:38 PM EDT) Surgical Pathology Report [id number] ? Location: [facility] The signing pathologist has (i) examined the relevant preparation(s) for the specimen(s) and (ii) rendered or confirmed the diagnosis(es). . ?Pathology Surgical Pathology Final Report Clinical Information Specimen Submitted: A - Left breast Clinical History: Hypoechoic breast mass increasing size. ??R/O malignancy vs F/A Report to: Nayely Ireland MD [facility] [address] [place] [id number] Gross Description Labeled/Fixative: ? Left breast, formalin. Qty/Size/Weight: ?Fragments, aggregating up to 3.5 x 3.4 x 0.3 cm. Tissue Description: ?? Alcocer-white and alcocer-yellow needle core biopsies. Sections/Processing: ??(T4) aje/PPS Microscopic Description Slides reviewed, microscopic description not recorded. Diagnosis Needle biopsies: ?Left breast. Diagnosis: ?Invasive carcinoma (see Comment) Microcalcifications: ??NA CR-0 01/26/05 VAM 01/26/05 Verified by: ? Cj Gomez MD ?Pathologist ?(Electronic Signature) The attending pathologist whose signature appears on this report has reviewed all diagnostic slides and has edited the gross and/or microscopic portion of the report in rendering the final pathologic diagnosis. Comment The malignancy has both medullary and metaplastic components, especially cartilagenous differentiation, and a carcinosarcoma cannot be ruled out on these biopsies. ??Pathologic subclassification is deferred to the full excision. KANDY FRANCIS 01/25/2005 5:38 PM EDT Deisy To MD PATHOLOG Y/CYTOLOGY ORDERABLES Performing Organization Address City/State/[facility] Co de Phone Number KANDY FRANCIS documented in this encounter Visit Diagnoses Not on filedocumented in this encounter Care Teams Reference Librarian Relationship Specialty Start Date End Date Dena Alfonso [place] [place] [address] PCP - General Geriatric Medicine 10/12/16 documented as of this encounter
--- OUTSIDE RECORDS SUMMARY | 2024-02-27 12:47 | XMS_ITS | Encounter Summary ---
Author Organization [facility] Address [facility] [place] [address] Care Team Providers Care Hand Sole Sewer Name Role Phone Raoul Michelle YADIRA Primary Care Provider [phone] Encounter Details Date Type Department Care Team (Latest Contact Info) Description 05/17/2010 1:23 PM EST - 05/17/2010 11:59 PM EST Hospital [place] [phone] Mode Guerrero MD [facility] DR HEMATOLOGY/[place] [address] CL[address], DR MONTOYA Discharge Disposition: Home Social History Tobacco Use [...] AM EDT Office Visit Hematology/Oncology at [address] [phone] El Bernardo MD [facility] [place] [place] [address] Linda Tamayo APRN [address] [place] [address] DR HEMATOLOGY AND ONCOLOGY [place], [place] [id number] 04/21/2024 8:00 AM EST Appointment Mammography/[place] [address] Linda Tamayo APRN [address] [place] [address] DR HEMATOLOGY [place] [address] documented as of this encounter Visit Diagnoses Not on filedocumented in this encounter Care Teams Hand Sole Sewer Relationship Specialty Start Date End Date Michelle Silveira PA PCP - General 05/09/10 08/04/15 documented as of this encounter
--- OUTSIDE RECORDS SUMMARY | 2024-02-27 12:47 | XMS_ITS | Encounter Summary ---
Author Organization [facility] Address [facility] [place] [address] Care Team Providers Care Director Of Community Education Name Role Phone Raoul Michelle YADIRA Primary Care Provider [phone] Reason for Visit * Reason Comments Skin Lesion Encounter Details Date Type Department Care Team (Late st Contact Info) Description 10/10/2010 1:15 PM EDT Office Visit Dermatology [address] [place] [address] [address] [place] [address] Miles Bowman MD [address], [place] [address] Xerosis (Primary Dx) Social History Tobacco Use Types Packs/Day Years Used Date Smoking Tobacco: Never Assessed Sex and Gender Information Value Date Recorded Sex Assigned at Not on file Gender Identity Not on file Sexual Orientation Not on file documented as of this encounter Progress Notes * Miles Bowman MD - 10/10/2010 1:53 PM EDT BLANK Problems: 1. New skin lesions of concern. 2. 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 3. History of breast cancer, status post chemotherapy and radiation therapy. Rebeca follows up and has some lesions of concern. Physical examination reveals an erythematous somewhat excoriated papule of some five days duration on the left anterior shoulder. It is pruritic. She has dry skin again on her feet which I had treated for her in 2000 with Lac-Hydrin. She has a compound versus intradermal nevus on the left mid jaw line, non pigmented, with a vellus hair growing from its center. She has mild xerosis and mild hyperkeratosis of the heels of both feet. Assessment & Plan: History of genital herpes. a. Patient requests refills of Valtrex and this was given to her today 500 mg take one p.o. twice daily for three days/p.r.n. for recurrence/flare. She has not had a recurrence now for some five years. Compound versus intradermal nevus, left mid jaw line. a. Patient reassured. b. No treatment necessary. Xerosis, heels of feet. a. Refills given for Lac-Hydrin 12% Cream apply twice daily to the areas, 120gm disp. with p.r.n. refills. I would be happy to refill this for her indefinitely. b. Patient reassured about remainder of benign skin examination. c. RTC p.r.n. CC: YADIRA Zavala documented in this encounter Plan of Treatment Upcoming Encounters Date Type Department Care Team (Late st Contact Info) Description 03/27/2024 11:00 AM EDT Office Visit Hematology/Oncology at [address] [phone] El Bernardo MD [facility] [place] [address] [address] [place] [address] 04/21/2024 8:00 AM EST Appointment Mammography/[place] [address] [address] HEMATOLOGY AND ONCOLOGY [place], [place] [address] documented as of this encounter Visit Diagnoses Diagnosis Xerosis- Primary Other specified disease of sebaceous glands documented in this encounter Care Teams Director Of Community Education Relationship Specialty Start Date End Date Michelle Silveira PA PCP - General 05/09/10 08/04/15 documented as of this encounter
--- OUTSIDE RECORDS SUMMARY | 2024-02-27 12:47 | XMS_ITS | Encounter Summary ---
Author Organization [facility] Address [facility] [place] [address] Care Team Providers Care Delivery Tech Name Role Phone Raoul Michelle YADIRA Primary Care Provider Encounter Details Date Type Department Care Team (Late Contact Info) Description 08/20/2011 Orders Only Hematology [place] [phone] Mode Guerrero MD [facility] DR HEMATOLOGY/[place] [address] Social History Tobacco Use Types Packs/Day Years [...] AM EDT Office Visit Hematology/Oncology at [address] [phone] El Bernardo MD [facility] [place] [address] Linda Tamayo APRN [address] [place] [address] DR HEMATOLOGY [place] [address] 04/21/2024 8:00 AM EST Appointment Mammography/[place] [address] Linda Tamayo APRN [address] [place] [address] DR HEMATOLOGY [place] [address] documented as of this encounter Visit Diagnoses Not on filedocumented in this encounter Care Teams Delivery Tech Relationship Specialty Start Date End Date Michelle Silveira PA PCP - General 05/09/10 08/04/15 documented as of this encounter
--- OUTSIDE RECORDS SUMMARY | 2024-02-27 12:47 | XMS_ITS | Encounter Summary ---
Author Organization [facility] Address [facility] [place] [address] Care Team Providers Care Security Solutions Architect Name Role Phone RaoulMichelle YADIRA Primary Care Provider Reason for Visit * Reason Comments Shortness of Breath sob with exercise,di zziness,tachycardia and pain in shoulder & jaw Fatigue Encounter Details Date Type Department Care Team (Late st Contact Info) Description 08/08/2011 10:20 AM EST Office Visit Cardiology at [address] [phone] Jeevan Orourke MD [facility] DR [place] [address] CHF (congestive heart failure) (Primary Dx); Palpitations Discharge Disposition: Home Social History Tobacco Use [...] Sign Reading Time Taken Comments Blood Pressure 112/80 08/08/2011 10:03 AM EST Pulse 88 08/08/2011 10:03 AM EST Temperature - - Respiratory Rate - - Oxygen Saturation 99% 08/08/2011 10:03 AM EST Inhaled Oxygen Concentration - - Weight 85.3 kg (188 lb) 08/08/2011 10:03 AM EST Height 167.6 cm (5' 6) 08/08/2011 10:03 AM EST Body Mass Index 30.34 08/08/2011 10:03 AM EST documented in this encounter Progress Notes * Pat Cruz LPN - 08/08/2011 11:58 AM EST EVENT MONITOR NOTE Seen for instruction using a cardiac transient arrythmia monitor, ordered by Dr.Andrew Orourke. Indication ,palpatations. Enrolled with [employer] monitoring company for thirty days. Basline strip obtained was Sinus Rhythm rate 80BPM. Patient appeared to receive and understand instruction withoutdifficulty. When monitor is returned, copies of the report will be sent to ordering MD and a copy to medical record. * Pat Cruz LPN - 08/08/2011 11:56 AM EST Pre Cardiac Cath/PTCA Nursing Note Date of Cath:___08/15/11 Indication:___S.O.B. Date of Labs:(within 30 days)__morning of cath Date of EKG:__morning of cath Medications: verified Stop Metformin 48 hour prior (na ) Last dose____na Insulin orders given na Stop Coumadin _na____days prior ( )Last dose Does patient have a contrast or shellfish allergy? __no____ If yes, was Prednisone RX given?___na Back Pain management :explained Understands potential for back pain.( yes ) Identifies pain management strategies. ( yes ) Teach 0-10 pain intensity scale. (yes ) Education: cath teaching done 08/08/11 After mag[facility] visit Patient understands purpose of cardiac cath/PTCA. ( yes ) Patient understands pre and post procedure care. ( yes ) Patient receives SDP pre-procedure instruction card. (yes ) Comments: Pt. Informed me of being a difficult blood draw on her right AC. She cannot be drawn on her right arm, do to H/O lymph node removal. She was given an event monitor the day of her [facility] visit, indication palpatations. Pt was encouraged to call with any further questions or concerns * Jeevan Orourke T - 08/08/2011 10:36 AM EST Subjective: Patient ID: Rebeca Taylor is a 50 y.o. female. HPI Patient Name: Rebeca TAYLOR Date of Visit: August 08, 2011 PCP: YADIRA Zaavla Reason for Visit: Office consultation; referred by Michelle Silveira at [facility]. Dear Michelle: Rebeca Taylor is a pleasant, 50-year-old female who comes in today with the chief complaint of dyspnea on exertion, palpitations with some presyncope, drop in ejection fraction with shortness of breath, and chest pain. Her history includes the followin. Social History: She lives in [place], [place]. 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 Her is a box inspector for [employer]. She has one daughter who is graduating from [employer] in the near future.She does not smoke. She does not drink. She has allergy to penicillin and codeine. 2. Depression: She has a history of this. She has been treated in the past but is on no therapy at this time. She does have poor sleep. See below. 3. Surgical history: Status post left knee and left partial mastectomy for breast cancer. See below. 4. Overweight: She is 190. She was 115 in high school. Probably her ideal weight is 130-140 range. 5. Exercise: She is generally active with biking, swimming, and walking but she has recently been limited by exertional discomfort and shortness of breath. See below. 6. History of GERD. 7. No thyroid disease: TSH was, by report, normal. 8. No hypertension. Blood pressure 120/70. 9. History of borderline blood sugars, recently 118. 10. Cholesterol 226, HDL 73, LDL 127. 11. Question of sleep apnea: As noted, she has poor sleep. There is some snoring. She may have a component of sleep apnea. 12. Family history: Negative for coronary disease. Father is 77 with a history of A-fib. 13. No history of definite asthma. PFTs negative. 14. History of breast cancer with positive BRAC-1 gene. She had a left partial mastectomy and was treated with doxorubicin, Cytoxan, and radiation therapy. She is followed by Dr. Bernardo. She has no evidence of recurrence. 15. Cardiomyopathy: She has noted shortness of breath over the past year but even more so over the past few months. She gets short of breath with exertion. An echo was done which showed an EF of 45% with global hypokinesis. Looking back on her records, I cannot fine data on her LV function prior toher doxorubicin therapy. Obviously, the etiology of this is unclear. See plan below. 16. Palpitations: She has also had episodes of heart racing. This has been more so recently. She feels her heart racing at a rate around 150 and she felt presyncopal with this. She had a two-week monitor put on but she did not have an event when this occurred. See plan below. 17. Question of ASCVD: She also has exertional chest tightness. She had a stress test which showed no definite ischemia, but her symptoms continue. We talked today about ways to settle this, and she acknowledges anxiety about the possibility of underlying coronary disease as the cause of these symptoms. We will proceed with catheterization to settle this and to also get filling pressures in termsof her cardiomyopathy. Risks were discussed and consent signed. 18. History of anorexia and bulimia as a high school student. She was 115 back then. Clearly, eating disorder is a concern. See overweight above. Her medications include ibuprofen, Lorazepam, estradiol, and Ultram. She is on no beta blockers. Review of Systems Constitutional: Negative. HENT: Negative. Eyes: Negative. Cardiovascular: Negative. Respiratory: Negative. Endocrine: Negative. Skin: Negative. Musculoskeletal: Negative. Gastrointestinal: Negative. Genitourinary: Negative. Neurological: Negative. Psychiatric/Behavioral: Negative. Objective: Physical Exam Constitutional: She is oriented to person, place, and time. She appears well- developed and well-nourished. HENT: Head: Normocephalic and atraumatic. Eyes: Conjunctivae and EOM are normal. Pupils are equal, round, and reactive to light. Neck: Normal range of motion. Neck supple. Cardiovascular: Normal rate and regular rhythm. Pulmonary/Chest: Effort normal and breath sounds normal. Abdominal: Soft. Bowel sounds are normal. Musculoskeletal: Normal range of motion. Neurological: She is alert and oriented to person, place, and time. She has normal reflexes. Assessment and Plan: Impression: Cardiomyopathy, EF 45% with symptoms. Uncertain etiology. Proceed with catheterization as described above. I emphasized that this could be related to her chemotherapy, but viral illness, tachy-mediated cardiomyopathy, as well as idiopathic cardiomyopathy are possibilities. She would like to have this situation settled. Plan: 1. A review of the active management and working diagnosis(es) was conducted. 2. The patient's medication list was updated and new Rxs given as needed. 3. Questions were answered. 4. Proceed with cath. 5. Start Coreg 3.25 mg twice daily and advance to 25 mg twice daily as tolerated. 6. Check screening labs today including TSH. 7. She will also focus on caloric restriction. The weight loss has been a struggle for her but thiswould clearly help her as well. 8. I am also going to give her a transient arrhythmia monitor. She states her symptoms of rapid heart rhythm last long enough for her to pull this up and place it on her chest. This way we can documented in this encounter Plan of Treatment Upcoming Encounters Date Type Department Care Team (Late st Contact Info) Description 03/27/2024 11:00 AM EDT Office Visit Hematology/Oncology at [address] [phone] El Bernardo MD [facility] [place] [address] Linda Tamayo [address] [place] [address] 04/21/2024 8:00 AM EST Appointment Mammography/[place] [address] Linda Tamayo [address] [place] [address] documented as of this encounter Results * Hepatic Function Panel (08/15/2011 7:30 AM EST) Pathologist [facility] Protein, Total 7.1 6.4 - 8.3 gm/dL [...] MD CHEMISTRY ORDERABL ES Performing Organization Address City/[facility]/ZIP Co de Phone Number [facility] * Prothrombin Time (08/15/2011 7:30 AM EST) [facility] Prothrombin Time 12.0 11.9 - 14.7 sec CERNER MILLENNIUM Comment: [facility] Transfusion Committee Guidelines: INR less than [...] MD HEMATOLOGY ORDERAB LES Performing Organization Address City/[facility]/ZIP Co de Phone Number [facility] * Basic Metabolic Panel (non-fasting) (08/15/2011 7:30 AM EST) [facility] Glucose 136 60 - 199 mg/dL CERNER [...] MD CHEMISTRY ORDERABL ES Performing Organization Address [facility] Co de Phone Number CERNER MILLENNIUM * TSH (08/15/2011 7:30 AM EST) Thyroid Stimulating Hormone 0.79 0.27 - 4.20 mcIU/mL CERNER MILLENNIUM Blood specimen (specimen) 08/15/2011 7:30 AM EST 08/15/2011 7:50 AM EST Narrative Resulting Agency Comment Spec In Lab Jeevan Orourke MD CHEMISTRY ORDERABL ES Performing Organization Address [facility] de Phone Number CERNER MILLENNIUM * CBC (with Diff) (08/15/2011 7:30 AM [...] Orourke MD HEMATOLOGY ORDERAB LES KANDY FRANCIS * Cardiac Event Monitor (08/08/2011 11:44 AM EST) Anatomical Region Laterality Modality Other Narrative 10/03/2011 3:57 PM EDT [facility] ?EVENT MONITOR REPORT Indication for Event Monitor: ??Palpitations Quality of recordings submitted: [ ??] Acceptable [ ??] Moderate artifact [ x ] Considerable artifact Rhythm interpretation: 3 ??tracing(s) were submitted for interpretation, including the baseline tracing. Baseline, asymptomatic, and fast heart beat all were reported during sinus rhythm from 78-103 bpm. Conclusion(s): ?? No dysrhythmias. Procedure Note Felicia Dixon MD - 10/03/2011 [facility] EVENT MONITOR REPORT Indication for Event Monitor: Palpitations Quality of recordings submitted: [ ] Acceptable [ ] Moderate artifact [ x ] Considerable artifact Rhythm interpretation: 3 tracing(s) were submitted for interpretation, including the baselinetracing. Baseline, asymptomatic, and fast heart beat all were reportedduring sinus rhythm from 78-103 bpm. Conclusion(s): No dysrhythmias. Jeevan Orourke MD [facility] documented in this encounter Visit Diagnoses Diagnosis CHF (congestive heart failure)- Primary Congestive heart failure, unspecified Palpitations Palpitations documented in this encounter Care Teams Security Solutions Architect Relationship Specialty Start Date End Date Michelle Silveira PA PCP - General 05/09/10 08/04/15 documented as of this encounter
--- OUTSIDE RECORDS SUMMARY | 2024-02-27 12:47 | XMS_ITS | Encounter Summary ---
Author Organization [facility] Address [facility] [place] [address] Care Team Providers Care Container Finisher Name Role Phone Michelle Silveira Primary Care Provider [phone] Encounter Details Date Type Department Care Team (Late st Contact Info) Description 08/08/2011 11:00 AM EST - 08/08/2011 11:59 PM [facility] Hospital Encounter Non-[place] [phone] Palpitations Social History Tobacco Use Types Packs/Day Years [...] 07/03/2010 12/14/2011 documented as of this encounter Plan of Treatment Upcoming Encounters Date Type Department Care Team (Late st Contact Info) Description 03/27/2024 11:00 AM EDT Office Visit Hematology/Oncology at [address] [phone] El Bernardo MD [facility] [place] [place] [address] [address] HEMATOLOGY AND ONCOLOGY [place], [place] [phone] 04/21/2024 8:00 AM EST Appointment Mammography/[place] [address] [address] HEMATOLOGY AND ONCOLOGY [place], [place] [phone] documented as of this encounter Procedures Procedure Name Priority Date/Time Associated Diagnosis Comments CARDIAC EVENT MONITOR Routine 08/08/2011 11:44 AM EST Palpitations documented in this encounter Results * Cardiac Event Monitor (08/08/2011 11:44 AM EST) Anatomical Region Laterality Modality Other Narrative 10/03/2011 3:57 PM EDT [facility] ?EVENT MONITOR REPORT Indication for Event Monitor: ??Palpitations Quality of recordings submitted: [ ??] Acceptable [ ??] Moderate artifact [ x ] Considerable artifact Rhythm interpretation: 3 ??tracing(s) were submitted for interpretation, including the baseline tracing. Baseline, asymptomatic, and fast heart beat all were reported during sinus rhythm from 78-103 bpm. Conclusion(s): ?? No dysrhythmias. Procedure Note Felicia Dixon MD - 10/03/2011 [facility] EVENT MONITOR REPORT Indication for Event Monitor: Palpitations Quality of recordings submitted: [ ] Acceptable [ ] Moderate artifact [ x ] Considerable artifact Rhythm interpretation: 3 tracing(s) were submitted for interpretation, including the baselinetracing. Baseline, asymptomatic, and fast heart beat all were reportedduring sinus rhythm from 78-103 bpm. Conclusion(s): No dysrhythmias. Jeevan Orourke MD [facility] documented in this encounter Visit Diagnoses Diagnosis Palpitations documented in this encounter Care Teams Container Finisher Relationship Specialty Start Date End Date Michelle Silveira PA PCP - General 05/09/10 08/04/15 documented as of this encounter
--- OUTSIDE RECORDS SUMMARY | 2024-02-27 12:47 | XMS_ITS | Encounter Summary ---
Author Organization [facility] Address [facility] [place] [address] Care Team Providers Care Trench Pipe Layer Name Role Phone Michelle Silveira Primary Care Provider [phone] Encounter Details Date Type Department Care Team (Late Contact Info) Description 05/18/2011 2:40 PM EST - 05/18/2011 11:59 PM EST Hospital Encounter [place] [address] Breast cancer Social History Tobacco Use Types Packs/Day Years Used Date Smoking Tobacco: Never Assessed Sex and Gender Information Value Date Recorded Sex Assigned at Not on file Gender Identity Not on file Sexual Orientation Not on file documented as of this encounter Medications at Time of Discharge Medication Sig Dispensed Refills Start Date End Date ESTRADIOL (VAGIFEM) 10 mcg Tab 10 MCG = 1 Tablet(s), Vag, twice weekly 07/03/2010 12/14/2011 LORazepam (ATIVAN) 1 mg tablet 1 MG, PO, QHS 05/24/2010 05/22/2011 documented as of this encounter Plan of Treatment Upcoming Encounters Date Type Department Care Team (Late st Contact Info) Description 03/27/2024 11:00 AM EDT Office Visit Hematology/Oncology at [address] [phone] El Bernardo MD [facility] [place] [address] Linda Tamayo APRN [address] [place] [address] DR HEMATOLOGY [place] [address] 04/21/2024 8:00 AM EST Appointment Mammography/[place] [address] Linda Tamayo, LIZABETH [address] [place] [address] DR HEMATOLOGY [place] [address] documented as of this encounter Procedures Procedure Name Priority Date/Time Associated Diagnosis Comments MAMMO SCREENING CAD BILATERAL STAT 05/18/2011 3:00 PM EST Breast cancer documented in this encounter Results * Mammo digital bilateral Screening with CAD (05/18/2011 3:00 PM EST) Anatomical Region Laterality Modality Breast Bilateral Mammography 05/18/2011 3:00 PM EST Narrative 05/21/2011 4:25 PM EST BILATERAL MAMMOGRAPHY ?? REASON FOR EXAM: Screening. History of Left breast cancer. ?? TECHNIQUE: Cranio-caudal (CC) and mediolateral oblique (MLO) views of both breasts obtained with direct digital capture. The exam was evaluated by CAD Version 8.3.17. ?? FINDINGS: This is a negative mammogram with a BENIGN FINDING (ACR Category 2 mammogram). There are post-surgical changes in the Left breast. There has been no change in the appearance of the breasts since the previous examination and there is no evidence of cancer. ? The breasts are of scattered density. ? CONCLUSION ?? BENIGN mammogram (ACR Category 2). Routine screening mammography is recommended with the frequency dependent on the patient's age and breast cancer risk factors. ?? A letter has been sent to this patient by [facility]. Procedure Note Britt Armstrong MD - 05/21/2011 BILATERAL MAMMOGRAPHY REASON FOR EXAM: Screening. History of Left breast cancer. TECHNIQUE: Cranio-caudal (CC) and mediolateral oblique (MLO) views of both breasts obtained with direct digital capture. The exam was evaluated byCAD Version 8.3.17. FINDINGS: This is a negative mammogram with a BENIGN FINDING (ACR Category2 mammogram). There are post-surgical changes in the Left breast. There hasbeen no change in the appearance of the breasts since the previous examinationand there is no evidence of cancer. The breasts are of scattered density. CONCLUSION BENIGN mammogram (ACR Category 2). Routine screening mammography isrecommended with the frequency dependent on the patient's age and breast cancer risk factors. A letter has been sent to this patient by the [facility]. Mode Guerrero MD IMG MAMMO ORDERABLES documented in this encounter Visit Diagnoses Diagnosis Breast cancer Malignant neoplasm of breast (female), unspecified site documented in this encounter Care Teams Trench Pipe Layer Relationship Specialty Start Date End Date Michelle Silveira PA PCP - General 05/09/10 08/04/15 documented as of this encounter
--- OUTSIDE RECORDS SUMMARY | 2024-02-27 12:47 | XMS_ITS | Encounter Summary ---
Author Organization [facility] Address [facility] [place] [address] Care Team Providers Care Turn Down Man Name Role Phone Michelle Silveira YADIRA Primary Care Provider [phone] Reason for Visit * Reason Comments Palpitations Encounter Details Date Type Department Care Team (Late st Contact Info) Description 10/12/2011 10:15 AM EDT Office Visit [address] [phone] Jeevan Orourke MD [facility] [place] [address] Palpitations (Primary Dx) Social History Tobacco Use [...] encounter Progress Notes * Louis Atkinson - 10/18/2011 9:54 AM EDT * Jeevan Orourke - 10/12/2011 10:21 AM EDT Subjective: Patient ID: Rebeca Hernández is a 50 y.o. female. HPI ROS Objective: Physical Exam Assessment and Plan: No problem-specific visit notes found for this encounter. Scanned note documented in this encounter Plan of Treatment Upcoming Encounters Date Type Department Care Team (Late st Contact Info) Description 03/27/2024 11:00 AM EDT Office Visit Hematology/Oncology at [address] [phone] El Bernardo MD [facility] [place] [address] [address] HEMATOLOGY AND ONCOLOGY [place], [place] [address] 04/21/2024 8:00 AM EST Appointment Mammography/[place] [address] [address] HEMATOLOGY AND ONCOLOGY [place], [place] [address] documented as of this encounter Visit Diagnoses Diagnosis Palpitations- Primary documented in this encounter Care Teams Turn Down Man Relationship Specialty Start Date End Date Michelle Silveira PA PCP - General 05/09/10 08/04/15 documented as of this encounter
--- OUTSIDE RECORDS SUMMARY | 2024-02-27 12:47 | XMS_ITS | Encounter Summary ---
Author Organization [facility] [place] [address] Care Team Providers Care [employer] French Teacher Name Role Phone Michelle Silveira YADIRA Primary Care Provider [phone] Encounter Details Date Type Department Care Team (Late Contact Info) Description 08/24/2011 Telephone Cardiology at [address] [phone] Sobeida Taylor, RN Social History Tobacco Use [...] Telephone Encounter - Sobeida Taylor RN - 08/24/2011 10:54 AM EST Called back to report she ended up in the ED again as the rash/hives worsened and she felt like herthroat was closing off. They treated with IV Prednisone and switched from Medrol to a Prednisone taper. Today she is better, but rash has not totally resolved. The ED MD did not give an opinion about cause of hives. She had just had her hair colored, so hivescould be dye related as well as medication related. She does not want another med a this time. Will call back next week when symptoms totally resolved to discuss meds. documented in this encounter Plan of Treatment Upcoming Encounters Date Type Department Care Team (Late Contact Info) Description 03/27/2024 11:00 AM EDT Office Visit Hematology/Oncology at [address] [phone] El Bernardo MD [facility] [place] [address] [address] HEMATOLOGY AND ONCOLOGY [place], [place] [address] 04/21/2024 8:00 AM EST Appointment Mammography/[place] [address] [address] HEMATOLOGY AND ONCOLOGY [place], [place] [phone] documented as of this encounter Visit Diagnoses Not on filedocumented in this encounter Care Teams [employer] French Teacher Relationship Specialty Start Date End Date Michelle Silveira PA PCP - General 05/09/10 08/04/15 documented as of this encounter
--- OUTSIDE RECORDS SUMMARY | 2024-02-27 12:47 | XMS_ITS | Encounter Summary ---
Author Organization [facility] Address [facility] [place] [address] Care Team Providers Care Musical Therapist Name Role Phone Dena Alfonso APRN Primary Care Provider Encounter Details Date Type Department Care Team (Late st Contact Info) Description 03/25/2008 Orders Only Dermatology at [address] [place] [phone] Miles Bowman MD [address] [place] [address], [place] [address] Social History Tobacco Use Types Packs/Day Years [...] AM EDT Office Visit Hematology/Oncology at [address] [phone] El Bernardo MD [facility] [place] [address] Linda Tamayo EMPLOYER RELATIONS REPRESENTATIVE [address] [place] [address] DR HEMATOLOGY AND ONCOLOGY [place], [place] [address] 04/21/2024 8:00 AM EST Appointment Mammography/[place] [address] Linda Tamayo EMPLOYER RELATIONS REPRESENTATIVE [address] [place] [address] DR [place] [address] documented as of this encounter Procedures Procedure Name Priority Date/Time Associated Diagnosis Comments SURGICAL PATHOLOGY REPORT Routine 03/25/2008 5:15 PM EDT documented in this encounter Results * Surgical Pathology Report (03/25/2008 5:15 PM EDT) Surgical Pathology Report [id number] ? Location: [facility] The signing pathologist has (i) examined the relevant preparation(s) for the specimen(s) and (ii) rendered or confirmed the diagnosis(es). . ?Pathology Surgical Pathology Final Report Clinical Information Specimen Submitted: A - (R) lower lip (below yogesh border, 4-mm Punch: Clinical History: Mole Clinical Diagnosis: Nevus, doubt BCCA Report to: Miles Bowman MD, III [facility] Dermatology [place], [place] ??[address] Gross Description Labeled/Fixativ e: ? Labeled with the patient's name and medical record ?number, formalin. Qty/Size/Weight : ?Single punch, 0.3 cm, with a smooth, alcocer-santizo skin ?surface. Sections/Proces sing: ??(T1) ??aje/PPS Microscopic Description Slides reviewed, microscopic description not recorded. Diagnosis Right lower lip, below yogesh border, punch biopsy: ??Dermal nevus; the margins are free in the planes of sectioning. CR-0 03/27/08 AUDREY 03/29/08 Verified by: ? Ford Junior MD ?Dermatopathol ogist ?(Electronic Signature) The attending pathologist whose signature appears on this report has reviewed all diagnostic slides and has edited the gross and/or microscopic portion of the report in rendering the final pathologic diagnosis. [facility] 03/25/2008 5:15 PM EDT Miles Bowman MD PATHOLOGY/CYTOLOGY O RDERAALFONSO Performing Organization Address City/State/[facility] Co de Phone Number [facility] documented in this encounter Visit Diagnoses Not on filedocumented in this encounter Care Teams Musical Therapist Relationship Specialty Start Date End Date Dena Alfonso APRN [address] [place] [address] PCP - General Geriatric Medicine 10/12/16 documented as of this encounter
--- OUTSIDE RECORDS SUMMARY | 2024-02-27 12:47 | XMS_ITS | Encounter Summary ---
Author Organization [facility] Address [facility] [place] [address] Care Team Providers Care Gas Attendant Name Role Phone RaoulMichelle YADIRA Primary Care Provider [phone] Encounter Details Date Type Department Care Team (Late Contact Info) Description 03/05/2011 Orders Only Hematology [place] [phone] Mode Guerrero MD [facility] DR HEMATOLOGY/[place] [address] Breast cancer (Primary Dx) Social History Tobacco Use Types [...] AM EDT Office Visit Hematology/Oncology at [address] [phone] El Bernardo MD [facility] [place] [address] Linda Tamayo [address] HEMATOLOGY AND ONCOLOGY [place], [place] [address] 04/21/2024 8:00 AM EST Appointment Mammography/[place] [phone] Linda Tamayo [address] HEMATOLOGY [place] [address] documented as of this encounter Visit Diagnoses Diagnosis Breast cancer- Primary Malignant neoplasm of breast (female), unspecified site documented in this encounter Care Teams Gas Attendant Relationship Specialty Start Date End Date Michelle Silveira PA PCP - General 05/09/10 08/04/15 documented as of this encounter
--- OUTSIDE RECORDS SUMMARY | 2024-02-27 12:47 | XMS_ITS | Encounter Summary ---
Author Organization [facility] [place] [address] Care Team Providers Care Director Of Psychiatry Name Role Phone Michelle Silveira Primary Care Provider [phone] Encounter Details Date Type Department Care Team (Late st Contact Info) Description 05/17/2010 11:30 AM EST Follow-[place] [address] Social History Tobacco Use Types Packs/Day Years [...] AM EDT Office Visit Hematology/Oncology at [address] [phone] El Bernardo MD [facility] [place] [address] [address] HEMATOLOGY AND ONCOLOGY [place], [place] [address] 04/21/2024 8:00 AM EST Appointment Mammography/[place] [address] Linda Tamayo [address] HEMATOLOGY AND ONCOLOGY [place], [place] [phone] documented as of this encounter Visit Diagnoses Not on filedocumented in this encounter Care Teams Director Of Psychiatry Relationship Specialty Start Date End Date Michelle Silveira PA PCP - General 05/09/10 08/04/15 documented as of this encounter
--- OUTSIDE RECORDS SUMMARY | 2024-02-27 12:47 | XMS_ITS | Encounter Summary ---
Author Organization [facility] Address [facility] [place] [address] Care Team Providers Care Creative Designer Name Role Phone RaoulMichelle YADIRA Primary Care Provider [phone] Encounter Details Date Type Department Care Team (Late Contact Info) Description 03/12/2011 Orders Only Hematology [place] [phone] Mode Guerrero MD [facility] DR HEMATOLOGY/[place] [address] Breast cancer (Primary Dx) Social History Tobacco [...] 11:00 AM EDT Office Visit Hematology/Oncology at [address] [phone] El Bernardo MD [facility] [place] [place] [address] Linda Tamayo [address] HEMATOLOGY AND ONCOLOGY [place], [place] [address] 04/21/2024 8:00 AM EST Appointment Mammography/[place] [phone] Linda Tamayo [address] [place] [address] documented as of this encounter Results * Mammo digital bilateral [...] Center. Mode Guerrero MD IMG MAMMO ORDERABLES * MRI breast bilateral with/WO contrast (05/18/2011 1:55 PM EST) Anatomical Region Laterality Modality Breast Bilateral Magnetic Resonan ce 05/18/2011 1:55 PM EST Narrative 05/21/2011 4:50 PM EST BILATERAL BREAST MRI ON 05/18/11: ?? SUMMARY: ?? LEFT BREAST: BENIGN FINDING (BIRADS Category 2). Post-treatment change only. ?? RIGHT BREAST: NEGATIVE (BIRADS Category 1). No suspicious enhancement to suggest breast cancer. ? NARRATIVE: ?? Clinical indication: High risk screening. History of Left breast cancer in 2004. ?? Techniques: Multiplanar sequences were obtained pre- and post- gadolinium enhancement, to include SPGR weighted dynamic run-off and subtraction sequences obtained after the intravenous administration of 18ccs of Magnevist. Computer algorithm analysis for lesion detection and kinetic contrast enhancement curve analysis was performed, using Confirma software. ?? Background enhancement pattern (first post gadolinium images): None/Minimal (<25% breast). ?? Comparison studies: ??MRI dated: 05/19/09. ?? Benign appearing axillary nodes: Visualization adequate - bilateral. ?? Procedure Note Jai Duque MD - 05/21/2011 BILATERAL BREAST MRI ON 05/18/11: SUMMARY: LEFT BREAST: BENIGN FINDING (BIRADS Category 2). Post-treatment changeonly. RIGHT BREAST: NEGATIVE (BIRADS Category 1). No suspicious enhancement to suggest breast cancer. NARRATIVE: Clinical indication: High risk screening. History of Left breast cancer in 2004. Techniques: Multiplanar sequences were obtained pre- and post- gadolinium enhancement, to include SPGR weighted dynamic run-off and subtractionsequences obtained after the intravenous administration of 18ccs of Magnevist.Computer algorithm analysis for lesion detection and kinetic contrast enhancementcurve analysis was performed, using Confirma software. Background enhancement pattern (first post gadolinium images):None/Minimal (<25% breast). Comparison studies: MRI dated: 05/19/09. Benign appearing axillary nodes: Visualization adequate - bilateral. Mode Guerrero MD [facility] [place] ORDER[place]LES documented in this encounter Visit Diagnoses Diagnosis Breast cancer- Primary Malignant neoplasm of breast (female), unspecified site Breast cancer Malignant neoplasm of breast (female), unspecified site Breast cancer Malignant neoplasm of breast (female), unspecified site documented in this encounter Care Teams Creative Designer Relationship Specialty Start Date End Date Michelle Silveira PA PCP - General 05/09/10 08/04/15 documented as of this encounter
--- OUTSIDE RECORDS SUMMARY | 2024-02-27 12:47 | XMS_ITS | Encounter Summary ---
Author Organization [facility] [place] [facility] [place] [address] Care Team Providers Care Doubler Helper Name Role Phone RaoulMichelle YADIRA Primary Care Provider [phone] Encounter Details Date Type Department Care Team (Latest Contact Info) Description 05/24/2010 6:37 AM EST - 05/24/2010 11:59 PM EST Hospital Encounter [place] [address] Mode Guerrero MD [facility] HEMATOLOGY/[place] [address] Discharge Disposition: Home Social History Tobacco Use Types Packs/Day Years Used Date Smoking Tobacco: Never Assessed Sex and Gender Information Value Date Recorded Sex Assigned at Not on file Gender Identity Not on file Sexual Orientation Not on file documented as of this encounter Medications at Time of Discharge Medication Sig Dispensed Refills Start Date End Date LORazepam (ATIVAN) 1 mg tablet 1 MG, PO, QHS 0 05/22/2011 documented as of this encounter Plan of Treatment Upcoming Encounters Date Type Department Care Team (Late st Contact Info) Description 03/27/2024 11:00 AM EDT Office Visit Hematology/Oncology at [address] [phone] El Bernardo MD [facility] [place] [address] Linda Tamayo APRN [address] [place] [address] DR HEMATOLOGY AND ONCOLOGY [place], [place] [address] 04/21/2024 8:00 AM EST Appointment Mammography/[place] [phone] Linda Tamayo, BACK STAYER [address] [place] [address] DR HEMATOLOGY [place] [address] documented as of this encounter Visit Diagnoses Not on filedocumented in this encounter Care Teams Doubler Helper Relationship Specialty Start Date End Date Michelle Silveira PA PCP - General 05/09/10 08/04/15 documented as of this encounter
--- OUTSIDE RECORDS SUMMARY | 2024-02-27 12:47 | XMS_ITS | Encounter Summary ---
Author Organization [facility] Address [facility] [place] [address] Care Team Providers Care Bobbin Painter Name Role Phone Raoul Michelle YADIRA Primary Care Provider [phone] Encounter Details Date Type Department Care Team (Late st Contact Info) Description 08/12/2011 Orders Only Cardiology at [address] [place] [address] Sydney Nix, DIRECTOR ENVIRONMENTAL [facility] [place] [address] Cardiomyopathy (Primary Dx); Breast cancer; Chest pain; S/P TKR (total knee replacement) Social History Tobacco Use Types Packs/Day Years Used Date Smoking Tobacco: Never Alcohol Use Standard Drinks/Week Comments Yes 0 (1 standard drink = 0.6 oz pur e alcohol) Occasionally Sex and Gender Information Value Date Recorded Sex Assigned at Not on file Gender Identity Not on file Sexual Orientation Not on file documented as of this encounter Progress Notes * Sydney Nix, LIZABETH - 08/12/2011 5:05 PM EST Patient seen by Dr Orourke on 08/15/11. See note for details. Patient Active Problem List Diagnoses ??? Breast cancer A. S/P partial L mastectomy 2004 B. Treated with cytoxan and doxorubicin and radiation therapy. ??? Depression ??? Chest pain A. Stress test [facility] 06/28: exercised to 10.1 METs and 152 bpm. Neck pain at 6 mins. No EKG changes. ??? Cardiomyopathy A. Echo 2011: LVEF 45% with global HK. ??? GERD (gastroesophageal reflux disease) ??? Palpitations ??? S/P TKR (total knee replacement) Left Labs to be drawn day of cath. Consent obtained on day of office visit and can be found in scanned documents. documented in this encounter Plan of Treatment Upcoming Encounters Date Type Department Care Team (Late st Contact Info) Description 03/27/2024 11:00 AM EDT Office Visit Hematology/Oncology at [address] [phone] El Bernardo MD [facility] [place] [address] [address] HEMATOLOGY AND ONCOLOGY [place], [place] [address] 04/21/2024 8:00 AM EST Appointment Mammography[place] [address] [address] HEMATOLOGY AND ONCOLOGY [place], [place] [phone] documented as of this encounter Procedures Procedure Name Priority Date/Time Associated Diagnosis Comments CARDIAC CATHETERIZATION Routine 08/23/19 12 10:17 AM EST Chest pain Cardiomyopathy documented in this encounter Results * Cardiac Catheterization (08/23/2011 10:17 AM EST) Anatomical Region Laterality Modality Other Jeevan Orourke MD CARDIAC CATH ORDER TRIPP documented in this encounter Visit Diagnoses Diagnosis Cardiomyopathy- Primary Other primary cardiomyopathies Breast cancer Malignant neoplasm of breast (female), unspecified site Chest pain Chest pain, unspecified S/P TKR (total knee replacement) Knee joint replacement by other means documented in this encounter Care Teams Bobbin Painter Relationship Specialty Start Date End Date Michelle Silveira PA PCP - General 05/09/10 08/04/15 documented as of this encounter
--- OUTSIDE RECORDS SUMMARY | 2024-02-27 12:47 | XMS_ITS | Encounter Summary ---
Author Organization [facility] Address [facility] [place] [address] Care Team Providers Care Core Drill Operator Name Role Phone RaoulMichelle YADIRA Primary Care Provider Reason for Visit * Reason Onset Date Comments Other 10/22/2011 Encounter Details Date Type Department Care Team (Late Contact Info) Description 10/22/2011 Telephone Cardiology at [address] [phone] Jeevan Orourke MD [facility] [place] [address] Other Social History Tobacco Use Types Packs/Day [...] encounter Miscellaneous Notes * Telephone Encounter - Guadalupe Mathias - 10/22/2011 12:00 PM EDT Rebeca wants to know if her metoprolol can be changed from tartrate to succinate. Her pharmacist told her it may make her less tired. She is currently on a 50 mg tablet. Thanks. documented in this encounter Plan of Treatment Upcoming Encounters Date Type Department Care Team (Late Contact Info) Description 03/27/2024 11:00 AM EDT Office Visit Hematology/Oncology at [address] [phone] El Bernardo MD [facility] [place] [address] HEMATOLOGY AND ONCOLOGY [place], [place] [phone] 04/21/2024 8:00 AM EST Appointment Mammography/[place] [phone] Linda Tamayo[address] HEMATOLOGY AND ONCOLOGY [place], [place] [phone] documented as of this encounter Visit Diagnoses Not on filedocumented in this encounter Care Teams Core Drill Operator Relationship Specialty Start Date End Date Michelle Silveira PA PCP - General 05/09/10 08/04/15 documented as of this encounter
--- OUTSIDE RECORDS SUMMARY | 2024-02-27 12:47 | XMS_ITS | Encounter Summary ---
Author Organization [facility] Address [facility] [place] [address] Care Team Providers Care Environmental Health Specialist Name Role Phone RaoulMichelle YADIRA Primary Care Provider [phone] Reason for Visit * Reason Comments Established PRE OP? Encounter Details Date Type Department Care Team ([facility] st Contact Info) Description 12/14/2011 10:00 AM EDT Follow-Up Gynecology [place] [phone] Carly Solano MD [facility] [place] [address] Annual physical exam Discharge Disposition: Home Social History Tobacco Use [...] Sign Reading Time Taken Comments Blood Pressure 100/65 12/14/2011 10:27 AM EDT Pulse - - Temperature - - Respiratory Rate - - Oxygen Saturation - - Inhaled Oxygen Concentration - - Weight 88.5 kg (195 lb) 12/14/2011 10:27 AM EDT Height 162.6 cm (5' 4) 12/14/2011 10:27 AM EDT Body Mass Index 33.47 12/14/2011 10:27 AM EDT documented in this encounter Progress Notes * Carly Solano MD - 12/16/2011 4:21 PM EDT Subjective: Patient ID: Ty Hernández is a 50 y.o. female here for annual exam and to discuss whether she should have a RRSO. Patient Active Problem List Diagnoses Code ??? Breast cancer 174.9D ??? Depression 311L ??? Chest pain 786.50F ??? Cardiomyopathy 425.4BF ??? GERD (gastroesophageal reflux disease) 530.81S ??? Palpitations 785.1 ??? S/P TKR (total knee replacement) V43.65X ??? BRCA1 positive V84.01F HPI Ty Hernández returns today for annual contract loader evaluation. She has had chemotherapy induced menopause, with last bleeding occurring in February of 2008. She has not had any bleeding since then. Shehas no hot flashes. Other than vaginal dryness, she has no contract loader complaints. Ty is a 50-year-old woman who is status post a left breast lumpectomy and sentinal lymphadenectomy 02/19. 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 All margins were greater than 1 cm. Zero of four sentinel nodes were positive. On 03/28/05, she began adjuvant chemotherapy (AC) and completed this 07/2005. She completed XRT November 2005. Her breast cancer was ER/AZ and HER-2 negative. She has tested positive for a BRCA-1 mutation. I saw Ms. Hernández in 2008, at which time we discussedsurveillance vs RRSO. She has no family members with ovarian cancer, so has not been terribly worried about her risk. She has not been getting surveillance ultrasounds, and is still not terribly worried about her ovarian cancer risk. Prior to Admission medications Medication Sig Start Date End Date Taking? Authorizing Provider metoprolol succinate (TOPROL-XL) 25 mg 24 hr tablet Take 25 mg by mouth daily. Yes Historical ProviderMD Estradiol (VAGIFEM) [address] 1 tablet vaginally twice a week. 12/17/11 Yes Carly Solano MD metoprolol succinate (TOPROL-XL) 50 mg 24 hr tablet Take 1 tablet by mouth daily. 09/05/11 12/16/11 Yes Sydney Nix APRN ibuprofen (ADVIL;MOTRIN) 200 mg tablet Take 800 mg by mouth every 6 hours as needed. Yes MD Roya LORazepam (ATIVAN) 1 mg tablet Take 1 mg by mouth nightly as needed. Yes Historical Provider, Allergies Allergen Reactions ??? Morphine Itching Extreme itching ??? Penicillins Rash ??? Codeine Phos Rash ??? Unknown (Unclassified Drug) Environmental alergies Hay fever ??? Carvedilol rash Review of Systems: She requests refill on vagifem. Filed Vitals: 12/14/11 1027 BP: 100/65 Height: 162.6 cm (5' 4) Weight: 88.451 kg (195 lb) Objective: Physical Exam Gen: Ty Hernández appears very well, appropriate in dress and demeanor, NAD HEENT/Neck: no cervical or supraclavicular adenopathy; no thyromegaly. She is anicteric, appears well hydrated Lungs clear Heart RRR without murmurs Abdomen: soft, flat, non-distended, non-tender without abnormal masses, organomegaly or ascites Extremities: upper and lower extremities without edema Pelvic exam: NEFG, BUS negative. Vaginal mucosa pink and moist. Cervix without lesions. Pap test isdone. Bimanual exam reveals no nodularity, abnormal masses, or tenderness. RV confirms Assessment and Plan: Ty has a normal exam. We again discussed risks benefits and indications of RRSO. I have recommended that she at least have screening ultrasound which might better inform her choice of ongoing surveillance vs risk reducing surgery. Plan: schedule ultrasound documented in this encounter Plan of Treatment Upcoming Encounters Date Type Department Care Team (Late st Contact Info) Description 03/27/2024 11:00 AM EDT Office Visit Hematology/Oncology at [address] [phone] El Bernardo MD [facility] [place] [address] Linda Tamayo APRN [address] [place] [address] [place] [address] 04/21/2024 8:00 AM EST Appointment Mammography/[place] [address] Linda Tamayo, MUCK FARMER [address] [place] [address] DR [place] [address] documented as of this encounter Procedures Procedure Name Priority Date/Time Associated Diagnosis Comments TEACHER OF THE VISUALLY IMPAIRED MOLECULAR GENETICS REPORT Routine 12/14/2011 6:16 PM EDT TEACHER OF THE VISUALLY IMPAIRED CYTOLOGY FINAL REPORT Routine 12/14/2011 6:16 PM EDT CYTOPATHOLOGY GYNECOLOGICAL Routine 12/14/2011 4:28 PM EDT Annual physical exam documented in this encounter Results * TEACHER OF THE VISUALLY IMPAIRED MOLECULAR GENETICS REPORT (12/14/2011 6:16 PM EDT) TEACHER OF THE VISUALLY IMPAIRED Molecular Genetics Report ? [facility] ? Provider: ?? CARLY SOLANO ?Pt. Name: ?? TY HERNÁNDEZ ? Acc #: ?[id number] ?Pt. ? Col Date: ?? 12/14/2011 ? /Sex: ?1960,(50 years),Female ? Rec Date: ?? 12/14/2011 ? LOC: ?3K ? MOLECULAR GENETIC STUDIES ? ---REPORT OF DNA ANALYSIS--- ? Isaac Cady HPV test ? NEGATIVE for high-risk HPV *. ? It is recommended that patients with ASCUS cytology and a negative test for ? high-risk HPV undergo further evaluation according to current practice ? guidelines. ??* Testing negative for high risk HPV means that the specimen ? is negative for the following 14 types tested: ??types 16, 18, 31, 33, 35, ? 39, 45, 51, 52, 56, 58, 59, 66, and 68. ??The test is not intended to detect ? low risk HPV types. ? Specimen: HPV Testing - Cytology Liquid Based Prep ? Reviewed by: ??Jerad Watson, [facility] Hospital[facility]ep ? A ?JULIANNA Cerv-Endocerv LBP ? B ?HPVDO Do HPV Testing ? Verified date: ??12/20/11 ??ABH ? Verified by: ?Lab Review, Molecular Genetics ? (Electronic Signature) [facility] 12/14/2011 6:16 PM EDT Carly Solano MD PATHOLOGY/CYTOLOGY O RDERABLES [facility] * TEACHER OF THE VISUALLY IMPAIRED CYTOLOGY FINAL REPORT (12/14/2011 6:16 PM EDT) Hydrogenation Still Operator Cytology Final Report ? [facility] ? Provider: ?? CARLY SOLANO ?Pt. Name: ?? TY HERNÁNDEZ ? Acc #: ?[id number] ?Pt. ? Col Date: ?? 12/14/2011 ? /Sex: ?1960,(50 years),Female ? Rec Date: ?? 12/14/2011 ? LOC: ?3K ? CYTOPATHOLOGY: ??TEACHER OF THE VISUALLY IMPAIRED ? ---Adequacy--- ? Specimen submitted is satisfactory for evaluation. ??No endocervical ? component present . ? Note: ??Initial cross-sectional studies suggested that EMELI cells were more ? commonly identified when an endocervical component was present, however ? subsequent longitudinal studies fail to show that women lacking an ? endocervical component in a Pap smear are at increased risk for EMELI. ? ---Cytopathologic Diagnosis--- ? NORMAL ? Negative for Intraepithelial Lesion or Malignancy (NILM). ? 12/18/11 ?? Screened by: ??SLA ? 12/18/11 ?? Verified by: ??Lauren CT(ASCP), Sydney Hoskins - ? Hydrogen Treater ? ---Comment--- ? HPV testing is ordered and result pending. ? ---Clinical Information--- ? HPV Option: ? Concurrent HPV ? Preparation: ?Liquid Based Pap ? Specimen Source: ?Cervical Endocervical LBP ? LMP: ?N/A ? Hormones?: ?No ? Hysterectomy?: ?No ?: ?No ?: ?No ? I.U.D.?: ?No ? Pelvic Radiation: ? No ? Prior TEACHER OF THE VISUALLY IMPAIRED Therapy?: ? No ? Hist Abnl Pap/Biopsy?: ??No ? Hist of HPV Vaccine?: ?? No ? Hist of Smoking?: ? No ? Hist of CONY exposure?: ??No ? Clinical Data, Significant Therapy and Clinical Impression: ? This Pap Test has been evaluated with the assistance of the ThinPrep Pap ? Test Imaging System. ? [facility] ? Provider: ?? CARLY SOLANO ?Pt. Name: ?? TY HERNÁNDEZ ? Acc #: ?[id number] ?Pt. ? Col Date: ?? 12/14/2011 ? /Sex: ?1960,(50 years),Female ? Rec Date: ?? 12/14/2011 ? LOC: ?3K ? CYTOPATHOLOGY: ??TEACHER OF THE VISUALLY IMPAIRED ? Note: ? The Pap test is a screening test for cervical cancer with an inherent ? false-negative rate dependent upon several variables. ??For further ? information please contact the [facility]. ? Reference: ??Nishi CS. ??Credit Card Associate of Pap Smear Results. ??In: ? Julio Cesar BS, Misael HH, ed. ??The Pap Smear. ??[place]: ??Jerad, 2002: ? 71-77. CERNER MILLENNIUM 12/14/2011 6:16 PM EDT Carly Solano MD PATHOLOGY/CYTOLOGY O NARENDRA Performing Organization Address [facility] de Phone Number CERBLANCA DUENASENNIUM * Cytopathology Gynecological (12/14/2011 4:28 PM EDT) AP Specimen 12/14/2011 4:28 PM EDT 12/14/2011 4:28 PM EDT Narrative CERNER MILLENNIUM - 12/14/2011 4:28 PM EDT Specimen requisition ordered. ??Separate Pathology report to follow Carly Solano MD PATHOLOGY/CYTOLOGY O NARENDRA Performing Organization Address [facility] Co de Phone Number ROQUEBLANCA DUENASENNIUM documented in this encounter Visit Diagnoses Diagnosis Annual physical exam Routine general medical examination at a health care facility documented in this encounter Care Teams Environmental Health Specialist Relationship Specialty Start Date End Date Michelle Silveira PA PCP - General 05/09/10 08/04/15 documented as of this encounter
--- OUTSIDE RECORDS SUMMARY | 2024-02-27 12:47 | XMS_ITS | Encounter Summary ---
Author Organization [facility] Address [facility] [place] [address] Care Team Providers Care Sas Etl Developer Name Role Phone RaoulMichelle YADIRA Primary Care Provider [phone] Encounter Details Date Type Department Care Team (Late st Contact Info) Description 08/07/2011 Abstract Cardiology at [address] [phone] Pat Cruz LPN Social History Tobacco Use Types Packs/Day [...] AM EDT Office Visit Hematology/Oncology at [address] [phone] El Bernardo MD [facility] [place] [address] Linda Tamayo MANUFACTURING PROCESS ENGINEER [address] [place] [address] DR HEMATOLOGY AND ONCOLOGY [place], [place] [address] 04/21/2024 8:00 AM EST Appointment Mammography/[place] [phone] Linda Tamayo MANUFACTURING PROCESS ENGINEER [address] [place] [address] DR HEMATOLOGY AND ONCOLOGY [place], [place] [id number] documented as of this encounter Visit Diagnoses Not on filedocumented in this encounter Care Teams Sas Etl Developer Relationship Specialty Start Date End Date Michelle Silveira PA PCP - General 05/09/10 08/04/15 documented as of this encounter
--- OUTSIDE RECORDS SUMMARY | 2024-02-27 12:47 | XMS_ITS | Encounter Summary ---
Author Organization [facility] [place] [address] Care Team Providers Care Hand Zipper Trimmer Name Role Phone Michelle Silveira Primary Care Provider [phone] Reason for Visit * Reason Onset Date Comments Other 07/05/2011 Encounter Details Date Type Department Care Team (Late st Contact Info) Description 07/05/2011 Telephone Hematology Oncology at [address] [phone] Francesca Lei, RN Other Social History Tobacco Use Types Packs/Day [...] encounter Miscellaneous Notes * Telephone Encounter - Francesca Lei RN - 07/06/2011 3:52 PM EST Patient stopped by clinic to report that she has been having episodes where she is SOB, heart racing, pain in her jaw and tightness in her chest. Patient went to ER for cardiac symptoms and has sinceseen her PCP and had a cardiac workup, including a stress test, which showed ???negative ischemia?? - she did have chest pain on stress test. She also had an echocardiogram which showed left ventricular cardiomyopathy, segmental wall abnormalities, normal Right ventricle. LVEF is 45%. Patient is s/p AC chemotherapy - 03/19/2005 EF was 58%. She states that her PCP is managing this but she wanted to inform Dr. Bernardo of what is going on also. Dr. Bernardo notified. Patient called in follow-up to see if she has had follow-up with her PCP. No answer, message left on patient's voicemail to call clinic. documented in this encounter Plan of Treatment Upcoming Encounters Date Type Department Care Team (Late st Contact Info) Description 03/27/2024 11:00 AM EDT Office Visit Hematology/Oncology at [address] [phone] El Bernardo MD [facility] [place] [address] HEMATOLOGY AND ONCOLOGY [place], [place] [address] 04/21/2024 8:00 AM EST Appointment Mammography/[place] [address] HEMATOLOGY AND ONCOLOGY [place], [place] [address] documented as of this encounter Visit Diagnoses Not on filedocumented in this encounter Care Teams Hand Zipper Trimmer Relationship Specialty Start Date End Date Michelle Silveira PA PCP - General 05/09/10 08/04/15 documented as of this encounter
--- OUTSIDE RECORDS SUMMARY | 2024-02-27 12:47 | XMS_ITS | Encounter Summary ---
Author Organization [facility] Address [facility] [place] [address] Care Team Providers Care Manufacturing Support Engineer Name Role Phone Raoul Michelle YADIRA Primary Care Provider [phone] Encounter Details Date Type Department Care Team (Latest Contact Info) Description 05/18/2011 12:07 PM EST - 05/18/2011 11:59 PM EST Hospital Encounter MRI at [facility] [place] [address] CLINIC, DR JAN Guerrero, Mode Farooq MD [facility] HEMATOLOGY/[place] [address] Breast cancer Discharge Disposition: Home Social History Tobacco [...] - Inhaled Oxygen Concentration - - Weight 79.4 kg (175 lb) 05/18/2011 6:13 AM EST Height - - Body Mass Index - - documented in this encounter Medications at Time of Discharge Medication Sig Dispensed Refills Start Date End Date ESTRADIOL (VAGIFEM) 10 mcg Tab 10 MCG = 1 Tablet(s), Vag, twice weekly 07/03/2010 12/14/2011 LORazepam (ATIVAN) 1 mg tablet 1 MG, PO, QHS 05/24/2010 05/22/2011 documented as of this encounter Progress Notes * Deana Morgan RN - 05/15/2011 12:43 PM EST VIR MRI PRE-SEDATION ASSESSMENT NOTE NAME: Rebeca Hernández AGE: 50 y.o. : 1960 (home) [phone] (work) Female PCP YADIRA HERR None Allergies Allergen Reactions ??? Cis Free Text Allergy hay fever. ??? Penicillins CIS - Rash ??? Codeine Phos CIS - Rash DATE OF CALL: 05/15/11 TIME OF CALL: 1245 PREVIOUS MRI SCAN? Yes at [facility] SCHEDULED SCAN: MRI bilateral breasts SUBJECTIVE: Pt reports that she, gets anxious during the scan. She reports she had 1 MRI in the past with no sedation and was terrified. She reports she's been taking Ativan 1 mg PO QHS for sleep and it's no longer working to relax her in the evening so she'd like to try the Valium instead. ASSESSMENT: Pt appropriate for PO sedation PLAN: Valium 5 mg PO, may repeat if needed PRIOR SCAN DATE/S SEDATION TYPE SUCCESSFUL 02/05/05 MRI breasts Versed 3 mg IV, Fentanyl 150 mcg yes 08/02/05 MRI breasts Ativan 2 mg PO yes 04/04/06 MRI breasts Ativan 1 mg PO yes MRI breasts Ativan 1 mg PO yes 04/28/08 MRI breasts No sedation Yes, but reports was terrified 05/12/10 MRI breasts Ativan 1 mg PO yes 05/18/11 MRI breasts Valium 5 mg PO Yes. Very relaxed per central processing technician PT WILL ARRIVE 1 HR. BEFORE SCHEDULED SCAN AND HAVE A PCTS AVAILABLE. PT STATED TO PRINT BINDING AND FINISHING WORKER THAT THE SEDATION WAS EFFECTIVE FOR SCAN: Y N documented in this encounter Miscellaneous Notes * Miscellaneous - Provider, Scanning - 05/22/2011 7:49 AM EST documented in this encounter Plan of Treatment Upcoming Encounters Date Type Department Care Team (Late st Contact Info) Description 03/27/2024 11:00 AM EDT Office Visit Hematology/Oncology at [address] [phone] El Bernardo MD [facility] [place] [address] [address] HEMATOLOGY AND ONCOLOGY [place], [place] [id number] 04/21/2024 8:00 AM EST Appointment Mammography/[place] [address] HEMATOLOGY [place] [address] documented as of this encounter Procedures Procedure Name Priority Date/Time Associated Diagnosis Comments MRI BREAST WWO CONTRAST BILAT STAT 05/18/2011 1:55 PM EST Breast cancer documented in this encounter Results * MRI breast bilateral with/WO contrast (05/18/2011 [...] Visualization adequate - bilateral. Mode Guerrero MD IMG MRI ORDERABLES documented in this encounter Visit Diagnoses Diagnosis Breast cancer Malignant neoplasm of breast (female), unspecified site documented in this encounter Administered Medications Inactive Administered Medications - up to 3 most recent administrations Medication Order MAR Action Action Date Dose Rate Site diaZEPam (VALIUM) tablet 5 mg 5 mg, Oral, EVERY 30 MIN PRN, 2 doses, Starting on Sat05/18/11 at 0000, Until Sat05/18/11 at 1424, Anxiety, for MRI scan per protocol, Routine Given 05/18/2011 12:30 PM EST 5 mg gadopentetate dimeglumine (MAGNEVIST) injection 16 mL 16 mL (0.2 mL/kg/dose ? 79.4 kg), Intravenous, ONCE PRN, Per Protocol, Starting on Sat05/18/11 at 0614, 1 dose, Until Sat05/18/11 at 1345 Given 05/18/2011 1:45 PM EST 16 mLs documented in this encounter Care Teams Manufacturing Support Engineer Relationship Specialty Start Date End Date Michelle Silveira PA PCP - General 05/09/10 08/04/15 documented as of this encounter
--- OUTSIDE RECORDS SUMMARY | 2024-02-27 12:47 | XMS_ITS | Encounter Summary ---
Author Organization [facility] Address [facility] [place] [address] Care Team Providers Care Health Professor Name Role Phone Raoul Michelle YADIRA Primary Care Provider [phone] Encounter Details Date Type Department Care Team (Late st Contact Info) Description 08/17/2011 Abstract Cardiology at [address] [phone] Taylor Breaux RN Social History Tobacco Use Types Packs/Day [...] AM EDT Office Visit Hematology/Oncology at [address] [phone] El Bernardo MD [facility] [place] [address] Linda Tamayo [address] HEMATOLOGY AND ONCOLOGY [place], [place] [address] 04/21/2024 8:00 AM EST Appointment Mammography[place] [phone] Linda Tamayo [address] HEMATOLOGY AND ONCOLOGY [place], [place] [id number] documented as of this encounter Visit Diagnoses Not on filedocumented in this encounter Care Teams Health Professor Relationship Specialty Start Date End Date Michelle Silveira PA PCP - General 05/09/10 08/04/15 documented as of this encounter
--- OUTSIDE RECORDS SUMMARY | 2024-02-27 12:47 | XMS_ITS | Encounter Summary ---
Author Organization [facility] Address [facility] [place] [address] Care Team Providers Care Director Of Revenue Cycle Management Name Role Phone Roaul Michelle YADIRA Primary Care Provider [phone] Encounter Details Date Type Department Care Team (Late st Contact Info) Description 05/17/2010 1:00 PM EST Follow-Up [place]ology [place] [phone] Mode Guerrero MD [facility] DR HEMATOLOGY/[place] [address] Discharge Disposition: Home Social History Tobacco Use [...] AM EDT Office Visit Hematology/Oncology at [address] [phone] El Bernardo MD [facility] [place] [address] Linda Tamayo [address] [place] [address] 04/21/2024 8:00 AM EST Appointment Mammography[place] [phone] Linda Tamayo [address] [place] [address] documented as of this encounter Visit Diagnoses Not on filedocumented in this encounter Care Teams Director Of Revenue Cycle Management Relationship Specialty Start Date End Date Michelle Silveira PA PCP - General 05/09/10 08/04/15 documented as of this encounter
--- NOTE | 2024-02-27 12:59 | ED.GENADUL_ITS ---
Discharge Plan Disposition Patient Disposition: Home Condition: Stable Discharge Details Clinical Impression: Laceration of left hand Primary Care Provider: Dena Alfonso ED Provider: Stevan Gayle Home Meds and New Rx's Prescriptions: Continued (DME) lancets Misc See Rx Instructions .MEDSUPPLY Qty: 100 3RF Rx Instructions: E11.9 for daily monitoring for A1C <7%; any brand ok valacyclovir 500 mg tablet 500 mg PO BID PRN Rx Instructions: 1 tab BID for 3 days PRN outbreak. cholecalciferol (vitamin D3) 75 mcg (3,000 unit) tablet 75 mcg PO DAILY betamethasone dipropionate 0.05 % ointment 1 applic topical BID PRN (Reason: Hand eczema) Qty: 15 1RF Rx Instructions: Use thin layer mixed with emollient for hand eczema; use for shortest duration (DME) OneTouch Verio test strips Strip See Rx Instructions .ROUTE .COMPLEX Qty: 100 3RF Dose Instruction: TEST BLOOD SUGAR ONCE DAILY Rx Instructions: TEST BLOOD SUGAR ONCE DAILY. DX: E11.9. Keep A1c below 7. epinephrine [EpiPen 2-Hi] 0.3 mg/0.3 mL auto-injector 0.3 mg IM ONCE Qty: 2 0RF Rx Instructions: administer for bee sting, call 911 clonazepam 0.5 mg tablet 0.25 - 0.5 mg PO QHS PRN (Reason: sleep difficulty) Qty: 30 0RF Rx Instructions: administer 30 minutes before bedtime Discharge Instructions Instructions: Taking care of cuts, scrapes, and puncture wounds Additional Instructions: You were seen in the emergency department for your minor left hand laceration, repaired by Steri-Strips, please keep the area clean and dry, wear gloves for any prolonged water exposure, return for signs of infection like increasing redness, drainage of pus from the area, red streaking up the arm, fever. Referrals: Dena Alfonso, BUILDING INSPECTION ENGINEER [Primary Care Provider] - Discharge Data Discharge Date/Time-TO BE ENTERED AT DEPARTURE: 02/27/24 13:22 HPI General Date/Time Provider Initiated Documentation: 02/27/24 12:40 . HPI Narrative: 63 year-old female presents to ED today by POV/ambulating with a chief complaint of small 0.2cm cut on L MCP knuckle from a piece of glass with onset just prior to arrival. Quality described as single linear laceration, no radiation to retained foreign body sensation, active bleeding, numbness distally, visible deep structures. Severity is described as mild. Palliating factors include simple bandage. Provoking factors include nothing specific. Events leading up to the incident/Associated Symptoms: Patients' Tdap is UTD. Patient not anticoagulated. Related Data Home Medications ?Medication ?Instructions ?Recorded ?Confirmed cholecalciferol (vitamin D3) 75 75 mcg PO DAILY 07/20/20 02/27/24 mcg (3,000 unit) tablet lancets #100 ea 11/21/22 02/27/24 valacyclovir 500 mg tablet 500 mg PO BID PRN 10/11/23 02/27/24 betamethasone dipropionate 0.05 % 1 applic topical BID PRN Hand 01/16/24 02/27/24 topical ointment eczema #15 grams blood sugar diagnostic (OneTouch #100 strips 01/16/24 02/27/24 Verio test strips) epinephrine 0.3 mg/0.3 mL 0.3 mg (0.3 mL) IM ONCE #2 ea 01/16/24 02/27/24 injection, auto-injector (EpiPen 2-Hi) clonazepam 0.5 mg tablet 0.25 - 0.5 mg (0.5 - 1 x 0.5 mg) 01/20/24 02/27/24 PO QHS PRN sleep difficulty #30 tabs Previous Rx's ?Medication ?Instructions ?Recorded lancets #100 ea 11/21/22 betamethasone dipropionate 0.05 % 1 applic topical BID PRN Hand 01/16/24 topical ointment eczema #15 grams blood sugar diagnostic (OneTouch #100 strips 01/16/24 Verio test strips) epinephrine 0.3 mg/0.3 mL 0.3 mg (0.3 mL) IM ONCE #2 ea 01/16/24 injection, auto-injector (EpiPen 2-Hi) clonazepam 0.5 mg tablet 0.25 - 0.5 mg (0.5 - 1 x 0.5 mg) 01/20/24 PO QHS PRN sleep difficulty #30 tabs Allergies Allergy/AdvReac Type Severity Reaction Status Date / Time iodine Allergy Severe hives Verified 02/27/24 12:39 carvedilol Allergy Intermediate Other (See Verified 02/27/24 12:39 Comment) codeine (Codeine) Allergy Intermediate RASH Verified 02/27/24 12:39 Penicillins Allergy Intermediate RASH Verified 02/27/24 12:39 Sulfa (Sulfonamide Allergy Intermediate Rash Verified 02/27/24 12:39 Antibiotics) hydrocodone Allergy Mild ITCHING Verified 02/27/24 12:39 tramadol Allergy Mild Hives Verified 02/27/24 12:39 dulaglutide (From Trulicity) AdvReac Mild Nausea Verified 02/27/24 12:39 General Stated Complaint: Laceration MARIO: 4 Review of Systems All systems reviewed & are unremarkable except as noted in HPI and below Exam Narrative Exam Narrative: GENERAL APPEARANCE: Well-nourished, non-toxic, awake and alert, atraumatic, no acute distress. SKIN: Warm, pink, dry, intact, without rashes/lesions/ulcerations. HEAD: Normocephalic, atraumatic, normal hair distribution for gender/age. EYES: Normal conjunctiva, no exudates on lids/lashes. ENT: Nares patent, no circumoral cyanosis, no facial swelling NECK: Supple, trachea midline, painless cervical ROM. LUNGS/CHEST: Lungs CTA bilaterally, non-labored respirations, normal A/P diameter, symmetrical expansion, no chest wall deformity HEART (CV/PV): Regular rate and rhythm without murmur, no peripheral edema, no JVD. ABDOMEN: Soft, non-distended, no guarding. MSK: Normal ROM, no swelling/deformity to bilateral UEs or LEs, moving all extremities without weakness, no cyanosis, spine midline without tenderness, normal curvature. NEURO: Mental Status AAOx4 - alert to person, place, time, events No facial droop, no forehead involvement. Motor: No focal weakness - strength 5/5 in bilateral UEs and LEs, proximal and distal, symmetric. Sensory: sensation intact to light touch globally. Gait normal: patient ambulated without ataxia into ED room. PSYCH: euthymic, cooperative, pleasant, appropriate speech Course Vital Signs Vital signs: Vital Signs Temperature 36.6 C 02/27/24 12:36 Pulse 70 02/27/24 12:36 Respiratory Rate 12 02/27/24 12:36 Blood Pressure 147/92 H 02/27/24 12:36 Pulse Oximetry 99 02/27/24 12:36 Temperature 36.6 C 02/27/24 12:36 Temperature Source Oral 02/27/24 12:36 Pulse 70 02/27/24 12:36 Respiratory Rate 12 02/27/24 12:36 Respiratory Effort Normal 02/27/24 12:42 Blood Pressure 147/92 H 02/27/24 12:36 Pulse Oximetry 99 02/27/24 12:36 Oxygen Delivery Method Room Air 02/27/24 12:36 Oxygen Flow Rate 0 02/27/24 12:36 Pain Level 1 02/27/24 12:36 Procedures Laceration Laceration 1: Site: hand Side (If applicable): left Size (cm): 0.2 Description: linear Depth: simple, single layer Pre-repair: irrigated extensively and deep structures intact Skin layer closed with: other (single steri-strip) Medical Decision Making This dictation utilizes [id number] dictation software and may contain unedited grammatical errors. 63 year-old female presents to ED today by POV/ambulating with a chief complaint of small 0.2cm cut on L MCP knuckle from a piece of glass with onset just prior to arrival. Quality described as single linear laceration, no radiation to retained foreign body sensation, active bleeding, numbness distally, visible deep structures. Severity is described as mild. Palliating factors include simple bandage. Provoking factors include nothing specific. Events leading up to the incident/Associated Symptoms: Patients' Tdap is UTD. Patients' medical history: noncontributory. Family and social history: noncontributory. Pertinent exam findings / vital signs include 0.2cm linear laceration to L medial MCP area, no tendons visualized, no retained glass visualized, ROM and strength intact L fingers. Differential / pathologies of concern include laceration. Diagnostic studies of: -none. Interventions of: -steri-strip repair. ED Course/Assessment/Plan: 63-year-old female has a very superficial barely into epidermis 0.2 cm laceration to the medial aspect of the left first MCP area, neurovascular intact distal, range of motion intact in the finger, repaired by single Steri-Strip after cleaning the area, counseled the patient to return for any signs of infection, or any other emergent concerns. Findings not consistent with retained foreign body, tendon disruption. Disposition of laceration of left hand. Patient verbalized understanding of the plan and return to ED criteria and engaged in shared decision making. Medical Records Medical records reviewed: Yes I reviewed the patient's medical records. Quality:[facility] Health Related Social Needs: No Data to Display PFSH All Active Problems (Updated 02/27/24 @ 13:12 by YADIRA Schofield) Laceration of left hand (Acute) Vaginal discharge (Acute) Urinary frequency (Acute) Bronchitis (Acute) Renal cyst, left (Acute Unknown) MRI 04/2023 [facility] small Stress (Acute) Pyrosis (Acute) [facility]-GI Note 04/04/23 Family history of pancreatic cancer (Acute) M Epigastric pain (Acute) Anxiety (Chronic 06/16/12) Atrophic vaginitis (Chronic 11/22/16) BRCA1 gene mutation positive (Chronic 03/26/13) S/P BSO-04/29 needs yearly pelvic exam per Dr. Chamberlain Cystocele with uterine prolapse (Chronic 04/03/17) 04/03/2017 #3. Ring with support Depressed bipolar I disorder (Chronic 06/16/12) Diabetes mellitus (Chronic 06/16/12) A1C 7% (07/2020) Family history of diabetes mellitus (Chronic 08/20/16) Migraine (Chronic 06/16/12) Osteoarthritis (Chronic 06/16/12) Vitamin D deficiency (Chronic 06/16/12) Scoliosis (Chronic) X-rays 03/2019: Mod R L1-L2 & mild S-type T-spine Meloxicam PRN, APAP, PT, weight management Osteopenia (Chronic) DEXA 2015 & 2019 (L hip) GERD (gastroesophageal reflux disease) (Chronic) h/o heartburn with Tums PRN; 07/2020--epigastric & midsternal pain with eating--PPI trial Bilateral leg paresthesia (Acute ~12/2021) Folate deficiency (Acute ~12/2021) Supplement Flank pain (Acute) Lipoma (Acute) Medical History Aortic root dilatation [facility] [facility] ECHO 06/2020, but not present on confirmatory CTA per Dr. Parada (manager green) aorta is not enlarged History of cancer of left breast [facility] [facility] Stj Hem Onc Note 03/29/23 Seborrheic keratosis (01/24/23) Dysuria Hand eczema Topical steroid PRN Fracture of distal radius and ulna E-coli UTI (04/23/17) 04/08/2017 pansensitive. Rx with ciprofloxacin ?3 days. 04/23/2017 recurrent symptoms no urine culture obtained Rx for ciprofloxacin ?5 days. Cardiomyopathy Last f/u [facility] 2020 Chronic anxiety Midline cystocele Symptomatic since 2015. Hx of eating disorder anorexia and bulemia in adolescence. None since. Hx of migraines Surgical History Ligation of fallopian tube Tonsillectomy STRESS TEST (08/15/11) [facility] (SEE SCANNED REPORT) CARDIAC HEART CATH (08/15/11) LEFT; [facility] (SEE SCANNED REPORT) Breast, Lumpectomy 2005 L breast cancer BRACA 1 + followed by Chemo and Radiation Bilateral salpingectomy with oophorectomy [facility] 2012 prophylactic removal of fallopian tubes and ovaries. No HRT. On vaginal E2 cream. Arthroplasty of knee (~2010) [facility]-LEFT KNEE ARTHROSCOPY WITH PARTIAL MEDIAL AND LATERAL MENISCECTOMY Family History Mother Essential hypertension Breast cancer Pancreatic cancer Father Diabetes Essential hypertension Personal history of malignant neoplasm SKIN Heart disease Hyperlipidemia Anxiety Brother Essential hypertension Hyperlipidemia Grandfather Essential hypertension Personal history of malignant neoplasm LIVER Hyperlipidemia Grandfather Essential hypertension Stroke Grandmother Diabetes Personal history of malignant neoplasm BREAST Grandmother Diabetes Social History Smoking/Tobacco Use Status: Never Smoking risk assessment performed?: Yes Alcohol Intake: current Alcohol Intake frequency: holidays/special occasions only Drug use: Never Substance use type: does not use Adopted: No Caregiver/Support person: No Foster care: No Household members: none Housing: apartment Number of Children: 3 number of grandchildren: 2 Communication Needs: Corrective Lenses Education Level: college Do you need help understanding health information?: Never current occupation: [employer] Pets and animals: Yes Pets and animals: dog(s) Sexually active: No Do you think of yourself as: straight/heterosexual Current gender identity: female What is your relationship status?: How often do you talk on the phone with friends or family?: three or more times per week How often do you get together with friends or relatives?: once per week How often do you attend gnosticist or adventist services?: decline to answer Do you belong to any clubs or organized social groups?: no Panel score (0-1 are the most socially isolated patients): 1 What type of physical activity do you participate in: walking Duration: 15-30 minutes/day Frequency: 5-6 times per week Missy/Muslim: Yarsani Seatbelt use: always Helmet use: Yes Helmet use: always Drive intox or ride w/intox driver salesman: No Working smoke detector in home: Yes Fire extinguisher in home: Yes Carbon monox detector in home: Yes Do you feel safe at home: Yes Do you feel safe in your relationship?: Yes Female Reproductive History Menstrual control method: none History History 4 Para Hx # Term Pregnancies 3 Multiple births Hx # Pregnancies Ectopic pregnancies AB induced 1 Hx Number of Living Children AB spontaneous Past Pregnancies Del. Date GA/Weeks # Preg Succ Route Wgt Sex Labor Lgth Anesth esia Location Prov Complic 05/17/86 41 No Yes vaginal 3997.283 g Male [facility] 01/29/89 41 Yes vaginal 4507.574 g Male [facility] 09/06/93 40 Yes vaginal 3628.739 g Female [facility]
== END 2024-02-27 13:22 | disposition home or self-care (01) ==
PROVIDERS: Emergency Provider Physician Assistant; PCP Nurse Practitioner Adult Health
DX: S61.412A Laceration without foreign body of left hand, initial encounter (principal); W25.XXXA Contact with sharp glass, initial encounter
CPT/HCPCS: 99281; 99283

== ENCOUNTER 2024-04-23 02:43 | Outpatient (CLI) | payer MEDICARE, MEDICAID, SELFPAY ==
--- NOTE | 2024-04-23 08:00 | DI.MRI_ITS ---
Exam(s) MR LUMBAR SPINE WO EXAM: MR LUMBAR SPINE WO CLINICAL HISTORY: ? discogenic etiology of RLE pain,LUMBAR SPINE RADICULOPATHY L4,M54.17. TECHNIQUE: Multiplanar multisequence MRI of the Lumbar spine was performed. COMPARISON: CR XR LUMBAR SPINE COMPLETE from 04/13/2019 NM NM BONE SCAN WHOLE BODY GRP from 09/21/2022 FINDINGS: Bones: The last intervertebral disc space is designated the L5/S1 level for the numbering purpose of this ex amination. The vertebral body heights are well maintained. Alignment: Degenerative scoliosis. Stable degenerative anterolisthesis at L2-3. The marrow signal characteristics are unremarkable. Cord: The conus tip ends at the T12 level. It is of normal size and signal intensity. T12-L1: Mild posterior disc bulging. No focal disc herniation is present. No central spinal canal s tenosis.No neural foraminal stenosis. L1-2:Kpxp-iv-poijfnmr loss of disc height. Mild posterior disc bulging. No focal disc herniation is present. No central spinal canal stenosis.Mild bilateral neural foraminal stenosis. L2-3:Severe loss of disc height. Circumferential endplate osteophytes. No focal disc herniation is present. Mild central spinal canal stenosis.No neural foraminal stenosis. L3-4: Normal disc height. Disc bulging eccentric toward the right. No central spinal canal stenosi s.Mild right neural foraminal stenosis. L4-5:Normal disc height. Mild disc bulging. No focal disc herniation is present. Mild facet degene rative changes. No central spinal canal stenosis.No neural foraminal stenosis. L5-S1: Mild posterior disc bulging.No focal disc herniation is present. Mild facet degenerative bassett ges. No central spinal canal stenosis.No neural foraminal stenosis. The visualized SI joints and sacrum are unremarkable. Soft tissues: The paraspinal soft tissues are unremarkable. IMPRESSION: Degenerative disc changes greatest at L 2 3. Mild central canal stenosis and mild bilateral neural f oraminal narrowing at this level. Mild degenerative scoliosis. No evidence of disc herniation at any level. DATA REPOSITORY:
== END 2024-04-23 03:03 ==
PROVIDERS: PCP Nurse Practitioner Adult Health; Visit Provider Nurse Practitioner Adult Health
DX: M54.17 Radiculopathy, lumbosacral region (principal)
CPT/HCPCS: 72148

== ENCOUNTER 2024-07-23 01:54 | Outpatient (CLI) | payer MEDICARE, MEDICAID, SELFPAY ==
--- OUTSIDE RECORDS SUMMARY | 2024-07-23 02:04 | XMS_ITS | Clinical Summary ---
Author Organization [facility] Address [address] [place] [address] Care Team Providers Care Java Xml Developer Name Role Phone KyDena cornell Joyce BARONE Primary Care Provider [phone] Social History Tobacco Use Types Packs/Day Years Used Date Smoking Tobacco: Never Assessed Comments Unknown Sex and Gender Information Value Date Recorded Sex Assigned at Not on file Legal Sex Female 18:17 EST Gender Identity Not on file Sexual Orientation Not on file Plan of Treatment Health Maintenance Due Date Last Done Comments Hepatitis C Screen 1960 COVID-19 Vaccine ( season) 2024 RSV Immunization ( o r 60+ Years) (1 - 1-dose 75+ series) 2036 [place] Care Teams Java Xml Developer Relationship Specialty Start Date End Date Dena Alfonso APRN [address] [place] [address] PCP - General Family Medicine - [facility] Medicine 10/15/22
--- OUTSIDE RECORDS SUMMARY | 2024-07-23 02:04 | XMS_ITS | Encounter Summary ---
Author Organization [facility] Address [address] [place] [address] Care Team Providers Care Student Services Vice President Name Role Phone Unavailable Primary Care Provider Unavailabl e Encounter Details Date Type Department Care Team (Late st Contact Info) Description 04/04/2009 Orders Only [facility] Laboratory Services - [facility] ([facility] [place] [place] [address] [place], [place] [id number] Kate Knight MD [address] [place] [address] [place] [address] Social History Tobacco Use Types Packs/Day Years [...] reading/interpreti ng unformatted reports. ? Name: ? BRANDON, TY ? Accession #: ? [id number] ? : ? 1960 (Age: 48) ??F [...] 12:17 ? End of Report ? [facility] WHITT 04/04/2009 04/04/2009 us Kate Knight MD PATHOLOGY ORDERABLES Final Resu lt [facility] [address] [place] [address] documented in this encounter Visit Diagnoses Not on filedocumented in this encounter
--- OUTSIDE RECORDS SUMMARY | 2024-07-23 02:04 | XMS_ITS | Encounter Summary ---
Author Organization [facility] Address [address] [place] [address] Care Team Providers Care Typecasting Machine Operator Name Role Phone MonsterDena Dobson LIZABETH Primary Care Provider [phone] Encounter Details Date Type Department Care Team (Late st Contact Info) Description 12/10/2022 Lab Requisition [facility] Pathology & Laboratory Medicine - [facility] [address], [place] [address] Outr Resulting Lab, Provider Social History Tobacco [...] gonorrhoeae Result Negative Negative 12/12/2022 13:11 EDT [facility] Chlamydia trachomatis Result Negative Negative 12/12/2022 13:11 EDT [facility] Swab ENTIRE VAGINA / Unknown 12/10/2022 9:45 EDT 12/11/2022 23:10 EDT us Provider Outr Resulting Lab MICROBIOLOGY - GENER AL ORDERABLES Final Result [facility] [address] [place] [address] documented in this encounter Visit Diagnoses Not on filedocumented in this encounter Care Teams Typecasting Machine Operator Relationship Specialty Start Date End Date Dena Alfonso, VENDING SUPERVISOR [address] [place] [address] PCP - General Family Medicine - Hospital Medicine 10/15/22 documented as of this encounter
--- OUTSIDE RECORDS SUMMARY | 2024-07-23 02:04 | XMS_ITS | Encounter Summary ---
Author Organization [facility] Address [address] [place] [address] Care Team Providers Care [place] Boatman Name Role Phone Md VIET Amaya Primary Care Provider Dena Short APRN Primary Care Provider [phone] Encounter Details Date Type Department Care Team (Late st Contact Info) Description 03/03/[address] [facility] Pathology & Laboratory Medicine - [address] [address] Outr Resulting Lab, Provider Social History Tobacco [...] Unknown 03/03/2021 11:10 EDT 03/03/2021 21:33 EDT us Provider Outr Resulting Lab MICROBIOLOGY - GENER AL ORDERABLES Final Result Performing Organization Address City/State/[facility] de Phone Number [facility] [address] [place] [address] * COVID-19 TESTING (03/03/2021 11:10 EDT) COVID-19 rt-PCR Result Negative Negative 03/04/2021 16:[address] [facility] Comment: This test has not [...] history, and epidemiological information. Performed on the Granularher Fusion instrument Performing Lab [facility] 03/04/2021 16:[address] [facility] Swab 03/03/2021 11:1 0 EDT 03/03/2021 21:33 EDT us Provider Outr Resulting Lab MICROBIOLOGY - GENER AL ORDERABLES Final Result Performing Organization Address [facility] Co de Phone Number [facility] [address] [place] [address] documented in this encounter Visit Diagnoses Not on filedocumented in this encounter Care Teams [place] Boatman Relationship Specialty Start Date End Date Md Amaya MD PCP - General 04/29/15 10/14/22 Dena Alfonso APRN [address] [place] [address] PCP - General Family Medicine - [facility] Medicine 10/15/22 documented as of this encounter
--- OUTSIDE RECORDS SUMMARY | 2024-07-23 02:04 | XMS_ITS | Encounter Summary ---
Author Organization [facility] Address [address] [place] [address] Care Team Providers Care Voice Engineer Name Role Phone Dena Alfonso LIZABETH Primary Care Provider [phone] Encounter Details Date Type Department Care Team (Late st Contact Info) Description 10/29/2022 Lab Requisition [facility] Pathology & Laboratory Medicine - [facility] [address] [place] [address] Beto Mathias MD [address] [place] [address], [address] [place], [place] [address] Benign lipomatous neoplasm of skin and subcutaneous [...] explore management options, if applicable. 10/30/2022 15:00 T [facility] Final Diagnosis A. SOFT TISSUE, LEFT COSTAL MARGIN, EXCISION: - Mature fibroadipose tissue, consistent with lipoma. 10/30/2022 15:00 [facility] Attestation By the signature below, the attending physician certifies that they have 1) personally conducted a gross and/or microscopic examination of the described specimen(s), and/or personally interpreted the results of laboratory testing of the described specimen(s), and 2) personally rendered or confirmed the above diagnosis. 10/30/2022 15:00 T [facility] at 1500 Clinical History Lipoma left costal margin 10/30/2022 15:00 [facility] Gross Description A. Received in [...] firm areas or hemorrhage are grossly identified. Senior Cisco Network Engineer sections are submitted in A1 and A2. YADIRA GOLDMAN(ASC) 10/29/2022 13:51 10/30/2022 15:00 T [facility] Performing Lab [facility] 10/30/2022 15:00 T [facility] Scanned Images 10/30/2022 15:00 T [facility] Tissue SOFT TISSUE / Unknown 10/26/2022 10:55 EDT 10/29/2022 8:26 EDT us Beto Mathias MD PATHOLOGY ORDERABLES Final Resu lt [facility] [address] [place] [address] documented in this encounter Visit Diagnoses Diagnosis Benign lipomatous neoplasm of skin and subcutaneous tissue of trunk Lipoma of other skin and subcutaneous tissue documented in this encounter Care Teams Voice Engineer Relationship Specialty Start Date End Date Dena Alfonso PRESALES ENGINEER [address] [place] [address] PCP - General Family Medicine - [facility] Medicine 10/15/22 documented as of this encounter
--- OUTSIDE RECORDS SUMMARY | 2024-07-23 02:04 | XMS_ITS | Encounter Summary ---
Author Organization [facility] Address [address] [place] [address] Care Team Providers Care Paper Control Clerk Name Role Phone Dena Alfonso LIZABETH Primary Care Provider [phone] [phone] Encounter Details Date Type Department Care Team (Late st Contact Info) Description 01/09/2024 Lab Requisition [facility] Pathology & Laboratory Medicine - [facility] [address] [place] [address] Alondra Rushing MD [address] [place] [phone] Encounter for other general examination Social History [...] System with Manual Evaluation 01/14/2024 10:56 EDT [facility] Specimen Adequacy Unsatisfactory for evaluation-Insuf ficient number of squamous epithelial cells. Specimen processed and examined but preparation compromised by lubricant or other vaginal contaminant. 01/14/2024 10:56 EDT [facility] General Categorization Unsatisfactory 01/14/2024 10:56 T [facility] Educational Comments Unsatisfactory - Specimen processed and examined, but unsatisfactory for evaluation of epithelial abnormality. Recommend repeat age-based screening after 2-4 months per ASCCP Guidelines which may be found at www.asccp.org. HPV testing will not be performed due to the potential for false negative results. 01/14/2024 10:56 EDT [facility] Attestation . 01/14/2024 10:56 EDT [facility] at 1056 Clinical History See below 01/14/20 10:56 EDT [facility] Performing Lab [facility] 01/14/2024 10:56 T [facility] Scanned Images 01/14/2024 10:56 T [facility] Pap Test CERVIX UTERI STRUCTURE / Unknown 01/08/2024 14:01 EDT 01/09/2024 11:12 EDT us Alondra Rushing MD PATHOLOGY ORDERABLES Final R esult [facility] [address] [place], [place] [address] documented in this encounter Visit Diagnoses Diagnosis Encounter for other general examination documented in this encounter Care Teams Paper Control Clerk Relationship Specialty Start Date End Date Dena Alfonso APRN [address] [place] [address] PCP - General Family Medicine - Hospital Medicine 10/15/22 documented as of this encounter
--- OUTSIDE RECORDS SUMMARY | 2024-07-23 02:04 | XMS_ITS | Encounter Summary ---
Author Organization [facility] Address [address] [place] [address] Care Team Providers Care Correction Officer Name Role Phone Md VIET Amaya Primary Care Provider Unavaila ble Encounter Details Date Type Department Care Team (Late st Contact Info) Description 11/22/2016 Results Only [facility]- [facility] [phone] Pita Melendez, [facility] [address] [place] [address] Social History Tobacco Use Types [...] ? TY HERNÁNDEZ ? Accession #: ? [id number] ? : ? 1960 (Age: 55) ??F ?Collect Date: ? 11/22/2016 ? Location: ? [facility] ? Receive Date: ? 11/23/2016 ? Provider: PITA MELENDEZ DYE HOUSE WORKER Copy to: SHAMIKA MARC DYE HOUSE WORKER ? Final Report SPECIMEN ADEQUACY ? Satisfactory for Evaluation - transformation zone component absent GENERAL CATEGORIZATION ? Negative for Intraepithelial Lesion or Malignancy ?? Last Menstrual Period: 2004 Hormonal/Contracep tive status: Yes: vagifem Specimen/Source: ??Pap Test, Cervix, ThinPrep Imaging System with manual evaluation Document reviewed and electronically signed by: ? Gris Gould, LUZMA(ASCP)(IAC) ? Report ??Date: 12/04/2016 15:28 HPV with Pap Test ? Date Ordered: ? 12/04/2016 ? Status: ?? Signed Out ?Date Complete: ? 12/05/2016 ? By: ??System Interface ? Date Reported: ? 12/05/2016 ? Interpretation RESULT: Negative for HPV. No E6 or E7 mRNA is detected from HPV types 16,18,31,33,35, 39,45,51,52,56,58, 59,66, and 68 by business line manager mediated amplification. Comments Document reviewed and electronically signed by: ? System Interface ? Report date: 12/05/2016 By the signature above, the attending physician certifies that he/she has personally conducted a gross and/or microscopic examination of the described specimens and rendered or confirmed the above diagnosis. End of Report [facility] 11/22/2016 11/23/2016 us Pita Melendez DYE HOUSE WORKER PATHOLOGY ORDERABLES Final R esult [facility] [address] [place] [address] documented in this encounter Visit Diagnoses Not on filedocumented in this encounter Care Teams Correction Officer Relationship Specialty Start Date End Date Md Amaya MD PCP - General 04/29/15 10/14/22 documented as of this encounter
--- OUTSIDE RECORDS SUMMARY | 2024-07-23 02:04 | XMS_ITS | Encounter Summary ---
Author Organization [facility] Address [address] [place] [address] Care Team Providers Care Form Drafter Name Role Phone Md VIET Amaya Primary Care Provider Dena Short APRN Primary Care Provider [phone] Encounter Details Date Type Department Care Team (Late st Contact Info) Description 10/27/2019 Lab Requisition [facility] Pathology & Laboratory Medicine - [address] [address] Outr Resulting Lab, Provider Social History Tobacco [...] Unknown 10/27/2019 13:32 EDT 10/27/2019 20:22 EDT us Provider Outr Resulting Lab MICROBIOLOGY - GENER AL ORDERABLES Final Result [facility] [address] [place] [address] * COVID-19 TESTING (10/27/2019 13:32 EDT) COVID-19 rt-PCR Result Negative Negative 10/28/2019 17:13 EDT [facility] Comment: Negative results do not preclude 2019-nCoV infection and should not be used as the sole basis for treatment or other patient management decisions. Negative results must be combined with clinical observations, patient history, and epidemiological information. This test was developed and its performance characteristics determined by [facility]. It has not been cleared or approved [...] defined by the FDA Performed on the [employer] Fast. Performing Lab [facility] 10/28/2019 17:13 EDT [facility] Swab ENTIRE NASOPHARYNX / Unknown 10/27/2019 13:32 EDT 10/27/2019 20:22 EDT us Provider Outr Resulting Lab MICROBIOLOGY - GENER AL ORDERABLES Final Result [facility] [address] [place] [address] documented in this encounter Visit Diagnoses Not on filedocumented in this encounter Care Teams Form Drafter Relationship Specialty Start Date End Date Md Amaya MD PCP - General 04/29/15 10/14/22 Dena Alfonso APRN [address] [place] [address] PCP - General Family Medicine - Hospital Medicine 10/15/22 documented as of this encounter
--- OUTSIDE RECORDS SUMMARY | 2024-07-23 02:04 | XMS_ITS | Referral Summary ---
Author Organization [facility] Address [address] [place] [address] Care Team Providers Care Byproducts Extractor Name Role Phone MonsterDena Dobson LIZABETH Primary Care Provider [phone] [phone] Social History Tobacco Use Types Packs/Day Years Used Date Smoking Tobacco: Never Assessed Comments Unknown Sex and Gender Information Value Date Recorded Sex Assigned at Not on file Legal Sex Female 18:17 EST Gender Identity Not on file Sexual Orientation Not on file Plan of Treatment Not on file Insurance [place] Care Teams Byproducts Extractor Relationship Specialty Start Date End Date Dena Alfonso APRN [address] [place] [address] PCP - General Family Medicine - [facility] 10/15/22
--- OUTSIDE RECORDS SUMMARY | 2024-07-23 02:05 | XMS_ITS | Encounter Summary ---
Author Organization [facility] Address [facility] [place] [address] Care Team Providers Care Food And Beverage Server Name Role Phone Dena Alfonso APRN Primary Care Provider [phone] Reason for Visit * Reason Comments Medication Refill Encounter Details Date Type Department Care Team (Late Contact Info) Description 01/08/2021 Refill Cardiology at [address] [address] Lester Parada MD [facility] [place] [address] Medication Refill Social History Tobacco Use Types [...] Care Team (Late st Contact Info) Description 09/03/2024 11:00 AM EDT Office [place] [address] Josephine Espinosa MD [facility] [place] [address] documented as of this encounter Visit Diagnoses Diagnosis Ischemic cardiomyopathy Other specified forms of chronic ischemic heart disease documented in this encounter Care Teams Food And Beverage Server Relationship Specialty Start Date End Date Dena Alfonso APRN [address] [place] [address], [place] [address] PCP - General Geriatric Medicine 10/12/16 documented as of this encounter
--- OUTSIDE RECORDS SUMMARY | 2024-07-23 02:05 | XMS_ITS | Encounter Summary ---
Author Organization [facility] Address [facility] [place] [address] Care Team Providers Care Planer Off Bearer Name Role Phone Dena Alfonso LIZABETH Primary Care Provider [phone] [phone] Encounter Details Date Type Department Care Team (Late st Contact Info) Description 04/10/2024 1:55 PM EDT - 04/10/2024 11:59 PM EDT Hospital Encounter Mammography/DXA at [facility] [place] [phone] Linda Tamayo APRN [address] [place] [address] DR HEMATOLOGY AND ONCOLOGY [place], [place] [id number] Visit for screening mammogram Discharge Disposition: Home Social History Tobacco [...] Sig Dispensed Refills Start Date End Date acetaminophen (Tylenol) 500 mg Tablet Take 1,000 mg by mouth every 6 hours as needed for Pain. Berb Moreira/herbal complex no.18 (BERBERINE-HERBAL COMB NO.18 [...] (2,000 unit) Capsule Take by mouth daily. estradioL (ESTRACE) 0.01 % (0.1 mg/gram) Cream [...] week at night. 30 g 5 09/04/2022 olopatadine (PATADAY) 0.2 % Drops INSTILL 1 DROP INTO AFFECTED EYE S ONCE DAILY NEEDED 3 12/12/2017 fluticasone (FLONASE) 50 mcg/actuation [place], Suspension 1 spray by Each Nare route daily as needed. cetirizine (ZYRTEC) 10 mg Tablet Take 10 mg by mouth daily as needed for Allergies. Reported on 10/12/2016 EPINEPHrine (EPIPEN) 0.3 mg/0.3 mL (1:1,000) Auto-Injector Inject 0.3 mLs into the muscle once as needed (difficulty breathing, throat swelling, loss of consciousness) for up to 1 dose. Call 911. 2 each 1 06/16/2014 documented as of this encounter Plan of Treatment Upcoming Encounters Date Type Department Care Team (Late st Contact Info) Description 09/03/2024 11:00 AM EDT Office [place] [address] Josephine Espinosa MD [facility] [place] [address] documented as of this encounter Procedures Procedure Name Priority Date/Time Associated Diagnosis Comments MAMMO SCREENING CAD AND JEAN BILATERAL Routine 04/10/2024 2:26 PM EDT Visit for screening mammogram documented in this encounter Results * Mammo Screening Cad and Jean Bilateral (04/10/2024 2:26 PM EDT) WORKSTATION ID [id number] 2 RAD Anatomical Region Laterality Modality Breast Bilateral Mammography Impressions 04/14/2024 8:38 AM EDT No mammographic evidence of malignancy. Routine screening mammography is recommended. FINAL ASSESSMENT: BI-RADS CATEGORY 2: Benign * ??Regular screening mammograms starting at age 40 reduce the risk of from breast cancer. * ??Individuals should discuss the risks and benefits with their provider to determine their preferred breast cancer screening schedule, and at what age screening should stop. * ??Individuals should report any breast changes to a health care provider right away. * ??Some Individuals, because of their family history, a genetic tendency, or other factors, should consider being screened with annual breast MRI as well as with mammograms. * ??Screening mammography may not detect 10-15% of?breast cancers. Thank you for letting us participate in the care of this patient. ??If you are a health care provider and have any questions regarding this report, please contact the number below. ??For patients who have questions please contact the health personal care assistant that requested your imaging first. ? [facility] [address] [place], [place] ??[address] Narrative 04/14/2024 8:38 AM EDT EXAMINATION: MAMMO SCREENING CAD AND JEAN BILATERAL REASON FOR EXAM: Screening TECHNIQUE: CC and MLO views were obtained of BOTH breasts. 2D and 3D tomosynthesis images were obtained. Computer aided detection was used. COMPARISON: Comparison was made to the prior relevant examinations. BREAST DENSITY: There are scattered areas of fibroglandular density. FINDINGS: There are no suspicious microcalcifications, masses, or areas of distortion. There are post surgical changes in the left breast(s). Biopsy clip noted in the right breast, unchanged. Linda Tamayo APRN IMG MAMMO ORDERA BLES documented in this encounter Visit Diagnoses Diagnosis Visit for screening mammogram Other screening mammogram documented in this encounter Care Teams Planer Off Bearer Relationship Specialty Start Date End Date Dena Alfonso APRN [address] [place] [address] PCP - General Geriatric Medicine 10/12/16 documented as of this encounter
--- OUTSIDE RECORDS SUMMARY | 2024-07-23 02:05 | XMS_ITS | Encounter Summary ---
Author Organization [facility] Address [facility] [place] [address] Care Team Providers Care Plant Accountant Name Role Phone KadenMikeyDenamerlin BARONE Primary Care Provider Encounter Details Date Type Department Care Team (Late st Contact Info) Description 11/02/2021 Telephone Obstetrics [place] [address] Tiffany Tuttle Social History Tobacco Use Types [...] 11:00 AM EDT Office [place] [address] Josephine Espinosa MD [facility] [place] [address] documented as of this encounter Visit Diagnoses Not on filedocumented in this encounter Care Teams Plant Accountant Relationship Specialty Start Date End Date Dena Alfonso APRN [address] [place] [address] PCP - General Geriatric Medicine 10/12/16 documented as of this encounter
--- OUTSIDE RECORDS SUMMARY | 2024-07-23 02:05 | XMS_ITS | Encounter Summary ---
Author Organization [facility] Address [facility] [place] [address] Care Team Providers Care Deep Tissue Massage Therapist Name Role Phone Dena Alfonso APRN Primary Care Provider Encounter Details Date Type Department Care Team (Late Contact Info) Description 09/27/2022 Orders Only Hematology/Oncology at [address] [phone] Linda Tamayo APRN [address] [place] [address] DR HEMATOLOGY AND ONCOLOGY [place], [place] [id number] History of left breast cancer; BRCA1 positive; [...] Department Care Team (Late Contact Info) Description 09/03/2024 11:00 AM EDT Office [place] [address] Josephine Espinosa MD [facility] [place] [address] documented as of this encounter Results * [...] who have questions please contact the health patient care manager that requested your imaging first. ? Narrative [...] appearance. Linda Tamayo APRN IMG MAMMO ORDERA BLEKetty documented in this encounter Visit Diagnoses Diagnosis [...] mammogram documented in this encounter Care Teams Deep Tissue Massage Therapist Relationship Specialty Start Date End Date Dena Alfonso APRN [address] [place] [address] PCP - General Geriatric Medicine 10/12/16 documented as of this encounter
--- OUTSIDE RECORDS SUMMARY | 2024-07-23 02:05 | XMS_ITS | Encounter Summary ---
Author Organization [facility] Address [facility] [place] [address] Care Team Providers Care Animal Tech Name Role Phone Dena Alfonso APRN Primary Care Provider [phone] Reason for Visit * Reason Onset Date Comments Medication Refill 09/04/2022 Encounter Details Date Type Department Care Team ([facility] Contact Info) Description 09/04/2022 Refill Obstetrics [place] [address] Chris Gandhi MD [facility] OBSTETRICS [place] [address] Vaginal atrophy Social History Tobacco Use Types [...] 11:00 AM EDT Office Visit [place] [address] Josephine Espinosa MD [facility] [place] [address] documented as of this encounter Visit Diagnoses Diagnosis Vaginal atrophy Postmenopausal atrophic vaginitis documented in this encounter Care Teams Animal Tech Relationship Specialty Start Date End Date Dena Alfonso APRN [address] [facility] [place] [address] PCP - General Geriatric Medicine 10/12/16 documented as of this encounter
--- OUTSIDE RECORDS SUMMARY | 2024-07-23 02:05 | XMS_ITS | Encounter Summary ---
Author Organization [facility] Address [facility] [place] [address] Care Team Providers Care Import Export Agent Name Role Phone KadenMikeyDenamerlin BARONE Primary Care [...] 11:00 AM EDT Office [place] [address] Josephine Espinosa MD [facility] [place] [address] documented as of this encounter Visit Diagnoses Not on filedocumented in this encounter Care Teams Import Export Agent Relationship Specialty Start Date End Date Dena Alfonso APRN [address] [place] [address] PCP - General Geriatric Medicine 10/12/16 documented as of this encounter
--- OUTSIDE RECORDS SUMMARY | 2024-07-23 02:05 | XMS_ITS | Encounter Summary ---
Author Organization [facility] Address [facility] [place] [address] Care Team Providers Care Grounds Maintenance Manager Name Role Phone KyMikey cornellDena NUTRITIONAL SERVICES COOK Primary Care Provider Encounter Details Date Type Department Care Team (Latest Contact Info) Description 10/16/2023 8:54 AM EDT - 10/16/2023 11:59 PM EDT Hospital Encounter Mammography at [facility] [place] [address] Dena Alfonso APRN [address] [place] [address] Mass of right breast, unspecified quadrant; Genetic [...] NEEDED 3 12/12/2017 fluticasone (FLONASE) 50 mcg/actuation [place], Suspension 1 spray by Each Nare route [...] 11:00 AM EDT Office [place] [address] Josephine Espinosa MD [facility] [place] [address] documented as of this encounter Procedures Procedure [...] Right (10/16/2023 10:14 AM EDT) WORKSTATION ID [place] acquired by Cellfish/[id number] 1 RAD Anatomical Region Laterality Modality Breast [...] who have questions please contact the health dialysis patient care technician that requested your imaging first. ? Electronically signed by: Britt Armstrong MD, [facility] ([phone]), at 10/16/2023 11:17 AM Narrative 10/16/2023 11:17 AM EDT EXAMINATION: MAMMO [...] breast documented in this encounter Care Teams Grounds Maintenance Manager Relationship Specialty Start Date End Date Dena Alfonso APRN [address] [place] [address] PCP - General Geriatric Medicine 10/12/16 documented as of this encounter
--- OUTSIDE RECORDS SUMMARY | 2024-07-23 02:05 | XMS_ITS | Encounter Summary ---
Author Organization [facility] Address [facility] [place] [address] Care Team Providers Care Jr. Java Developer Name Role Phone Dena Alfonso LIZABETH Primary Care Provider Encounter Details Date Type Department Care Team (Late st Contact Info) Description 02/22/2023 1:49 PM EDT - 02/22/2023 11:59 PM EDT Hospital Encounter Mammography/DXA at [facility] [place] [phone] Linda Tamayo APRN [address] [place] [address] DR HEMATOLOGY AND ONCOLOGY [place], [place] [id number] History of left breast cancer; BRCA1 positive; [...] NEEDED 3 12/12/2017 fluticasone (FLONASE) 50 mcg/actuation [place], Suspension 1 spray by Each Nare route [...] 11:00 AM EDT Office [place] [address] Josephine Espinosa MD [facility] [place] [address] documented as of this encounter Procedures Procedure [...] who have questions please contact the health specialist wound care that requested your imaging first. ? Narrative [...] mammogram documented in this encounter Care Teams Jr. Java Developer Relationship Specialty Start Date End Date Dena Alfonso APRN [address] [place] [address] PCP - General Geriatric Medicine 10/12/16 documented as of this encounter
--- OUTSIDE RECORDS SUMMARY | 2024-07-23 02:05 | XMS_ITS | Encounter Summary ---
Author Organization [facility] Address [facility] [place] [address] Care Team Providers Care Freight Car Cleaner Name Role Phone Dena Alfonso APRN Primary Care Provider [phone] [phone] Reason for Visit * Reason Comments Follow-up Encounter Details Date Type Department Care Team (Late st Contact Info) Description 01/24/2023 2:30 PM EDT Office Visit Dermatology at [address] [phone] Miles Bowman MD [address] [place] [address], SERGE[facility] A [place]MAT[place] [address] Seborrheic keratosis Social History Tobacco Use Types [...] a visit to see her daughter in [place] at [address] where her [place]. Physical examination reveals a pleasant 62-year-old [...] 11:00 AM EDT Office [place] [address] Josephine Espinosa MD [facility] [place] [address] documented as of this encounter Visit Diagnoses Diagnosis Seborrheic keratosis Other seborrheic keratosis documented in this encounter Care Teams Freight Car Cleaner Relationship Specialty Start Date End Date Dena Alfonso APRN [address] [place] [address] PCP - General Geriatric Medicine 10/12/16 documented as of this encounter
--- OUTSIDE RECORDS SUMMARY | 2024-07-23 02:05 | XMS_ITS | Encounter Summary ---
Author Organization [facility] [place] [address] Care Team Providers Care Pad Tufter Name Role Phone Dena Alfonso APRN Primary Care Provider [phone] Encounter Details Date Type Department Care Team (Late Contact Info) Description 01/05/2022 Ancillary Procedure Radiology Library at [facility] [place] [place] [phone] El Bernardo MD [facility] [place] [address] Social History Tobacco Use Types Packs/Day Years [...] 11:00 AM EDT Office Visit Gastroenterology at [facility] [place] [place] [address] Josephine Espinosa MD [facility] [place] [address] documented as of this encounter Procedures Procedure Name Priority Date/Time Associated Diagnosis Comments FILM LIBRARY STORAGE ONLY NUCLEAR MEDICINE Routine 01/05/2022 12:00 AM EDT documented in this encounter Results * Film Library- Storage Only nuclear medicine (01/05/2022 12:00 AM EDT) Narrative RAD - 01/19/2022 4:18 PM EDT This exam is auto-finalizing. It's purpose is for storage only. El Bernardo MD IMG FILM LIBRARY ORD ERABLES [place], [place] documented in this encounter Visit Diagnoses Not on filedocumented in this encounter Care Teams Pad Tufter Relationship Specialty Start Date End Date Dena Alfonso APRN [address] [place] [address] PCP - General Geriatric Medicine 10/12/16 documented as of this encounter
--- OUTSIDE RECORDS SUMMARY | 2024-07-23 02:05 | XMS_ITS | Encounter Summary ---
Author Organization [facility] Address [facility] [place] [address] Care Team Providers Care Resistor Testing Machine Operator Name Role Phone KadenMikeyDenamerlin BARONE Primary Care [...] 11:00 AM EDT Office [place] [address] Josephine Espinosa MD [facility] [place] [address] documented as of this encounter Visit Diagnoses Not on filedocumented in this encounter Care Teams Resistor Testing Machine Operator Relationship Specialty Start Date End Date Dena Alfonso APRN [address] [place] [address] PCP - General Geriatric Medicine 10/12/16 documented as of this encounter
--- OUTSIDE RECORDS SUMMARY | 2024-07-23 02:05 | XMS_ITS | Encounter Summary ---
Author Organization [facility] [place] [address] Care Team Providers Care Japanese Professor Name Role Phone Dena Alfonso [employer] Primary Care Provider Encounter Details Date Type Department Care Team (Late st Contact Info) Description 09/21/2022 Ancillary Procedure Radiology Library at [facility] [place] [phone] Dena Alfonso APRN [address] [place], [place] [id number] Social History Tobacco Use Types Packs/Day Years [...] 11:00 AM EDT Office Visit Gastroenterology at [facility] [place] [address] Josephine Espinosa MD [facility] [place] [address] documented as of this encounter Procedures Procedure Name Priority Date/Time Associated Diagnosis Comments FILM LIBRARY STORAGE ONLY NUCLEAR MEDICINE Routine 09/21/2022 12:00 AM EDT documented in this encounter Results * Film Library- Storage Only nuclear medicine (09/21/2022 12:00 AM EDT) Narrative [facility] - 09/22/2022 3:54 AM EDT This exam is auto-finalizing. It's purpose is for storage only. Dena Alfonso APRN IMG FILM LIBRARY OR DERABLES [place], [place] documented in this encounter Visit Diagnoses Not on filedocumented in this encounter Care Teams Japanese Professor Relationship Specialty Start Date End Date Dena Alfonso APRN [address] [facility] [place] [address] PCP - General Geriatric Medicine 10/12/16 documented as of this encounter
--- OUTSIDE RECORDS SUMMARY | 2024-07-23 02:05 | XMS_ITS | Encounter Summary ---
Author Organization [facility] Address [facility] [place] [address] Care Team Providers Care Accountant Systems Name Role Phone KadenMikeyDenamerlin BARONE Primary Care Provider Encounter Details Date Type Department Care Team (Latest Contact Info) Description 04/10/2024 Travel Social History Tobacco Use Types Packs/Day [...] 11:00 AM EDT Office Visit [place] [address] Josephine Espinosa MD [facility] [place] [address] documented as of this encounter Visit Diagnoses Not on filedocumented in this encounter Care Teams Accountant Systems Relationship Specialty Start Date End Date Dena Alfonso APRN [address] [place] [id number] PCP - General Geriatric Medicine 10/12/16 documented as of this encounter
--- OUTSIDE RECORDS SUMMARY | 2024-07-23 02:05 | XMS_ITS | Encounter Summary ---
Author Organization [facility] Address [facility] [place] [address] Care Team Providers Care Microfilming Document Preparer Name Role Phone Dena Alfonso APRN Primary Care Provider [phone] Encounter Details Date Type Department Care Team (Latest Contact Info) Description 09/30/2020 8:00 AM EDT TH Visit (TeleHealth) Hematology/Oncology at [address] [phone] El Bernardo MD [facility] [address] History of left breast cancer Social History [...] with heterologous chondroid differentiation Tumor Grade: High Sjgfpx-Jfisu-Kvhnkrpuwg Score: 9 Tubular Differentiation: 3 Mitotic Rate: [...] carcinoma: 4 Estrogen/Progestin receptors: ER immunoreactivity: Negative [place] immunoreactivity: Negative HER2/yeyo expression by FISH: NEGATIVE [...] same BRCA1 alteration found in her mother ([id number]). Prophylactic BSO 04/2013. Path - Right and left fallopian tubes and ovaries (bilateral salpingo-oophorectomy): No evidence of malignancy. 3. ONCOLOGY REP History: The patient is G4, P3 with [...] 11:00 AM EDT Office [place] [address] Josephine Espinosa MD [facility] [place] [address] documented as of this encounter Visit Diagnoses Diagnosis History of left breast cancer documented in this encounter Care Teams Microfilming Document Preparer Relationship Specialty Start Date End Date Dena Alfonso APRN [address] [place] [address] PCP - General Geriatric Medicine 10/12/16 documented as of this encounter
--- OUTSIDE RECORDS SUMMARY | 2024-07-23 02:05 | XMS_ITS | Encounter Summary ---
Author Organization [facility] [place] [address] Care Team Providers Care Material Control Specialist Name Role Phone Dena Alfonso LIZABETH Primary Care Provider [phone] Encounter Details Date Type Department Care Team (Late st Contact Info) Description 03/29/2023 1:30 PM EDT Office Visit Hematology/Oncology at [address] [phone] Linda Tamayo APRN [address] [place] [address] DR HEMATOLOGY AND ONCOLOGY [place], [place] [id number] History of left breast cancer; BRCA1 positive; [...] this encounter Progress Notes * Linda Tamayo, BANDAGE MAKER - 03/29/2023 1:30 PM EDT Subjective: Patient ID: Rebeca Hernández is 62 y.o. Problem List: 1. 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 A. Pt-discovered [...] with heterologous chondroid differentiation Tumor Grade: High Uygwte-Grmzp-Appdnellvi Score: 9 Tubular Differentiation: 3 Mitotic Rate: [...] same BRCA1 alteration found in her mother ([id number]). Prophylactic BSO 04/2013. Path - Right and left fallopian tubes and ovaries (bilateral salpingo-oophorectomy): No evidence of malignancy. 3. RACK PULLER History: The patient is G4, P3 with [...] Psychiatric: Mood and Affect: Mood normal. Labs: LIFE SKILLS INSTRUCTOR Assessment and Plan: Rebeca Hernández is 62 [...] discussed that her daughter who lives in [place] should be tested for the BRCA genes. [...] 11:00 AM EDT Office Visit [place] [address] Josephine Espinosa MD [facility] [place] [address] documented as of this encounter Visit Diagnoses Diagnosis History of left breast cancer BRCA1 positive Genetic susceptibility to malignant neoplasm of breast Encounter for screening mammogram for breast cancer documented in this encounter Care Teams Material Control Specialist Relationship Specialty Start Date End Date Dena Alfonso APRN [address] [place] [address] PCP - General Geriatric Medicine 10/12/16 documented as of this encounter
--- OUTSIDE RECORDS SUMMARY | 2024-07-23 02:05 | XMS_ITS | Encounter Summary ---
Author Organization [facility] Address [facility] [place] [address] Care Team Providers Care Web Knitter Name Role Phone Dena Alfonso APRN Primary Care Provider [phone] Reason for Visit * Reason Onset Date Comments Rib Injury 09/03/2022 pain Encounter Details Date Type Department Care Team (Late st Contact Info) Description 09/03/2022 Telephone Hematology/Oncology at [address] [phone] Anna Hanna RN Rib Injury (pain) Social [...] ----- Regarding: Pain under Ribs, Chest tenderness Rebeca Parks is scheduled for a 6M breast follow [...] AM EDT Office Visit [place] [address] Josephine Espinosa MD [facility] [place] [address] documented as of this encounter Visit Diagnoses Not on filedocumented in this encounter Care Teams Web Knitter Relationship Specialty Start Date End Date Dena Alfonso APRN [address] [place] [address] PCP - General Geriatric Medicine 10/12/16 documented as of this encounter
--- OUTSIDE RECORDS SUMMARY | 2024-07-23 02:05 | XMS_ITS | Encounter Summary ---
Author Organization [facility] [place] [address] Care Team Providers Care Senior Cost Accountant Name Role Phone Dena Alfonso APRN Primary Care Provider [phone] Reason for Referral * Occupational Therapy (Routine) - Closed Specialty Diagnoses / Procedures Referred By Mariah tate Referred To Contact Orthopaedics Diagnoses Pain in right wrist Right hand pain clinic 08/23?? Cj Castro Jr., MD [facility] [place] [address] Sue Osorio OT [facility] PHYSICAL MEDICINE & [place] [address] Referral ID Status Reason Start Date Expiration Date V isits Requested Visits Authorized [id number] Closed Evaluate and Treat 08/23/2020 08/23/2021 100 [...] CYST, HX-WRIST FX-04/2019 Dena Alfonso APRN [address] [place] [address] [facility] Orthopa[facility] [address] [place] [phone] Referral ID Status Reason Start Date Expiration Date V isits Requested Visits Authorized [id number] Closed Consult, Test & Treat Connection Center PCP Updated and/or Approved 06/06/2020 06/06/2021 6 6 Encounter Details Date Type Department Care Team (Latest Contact Info) Description 08/23/2020 10:30 AM EST Office Visit [place] [address] Cj Castro Jr., MD [facility] [place] [address] Pain in right wrist; Right hand pain; [...] 08/23/2020 10:30 AM EST Rebeca Hernández 1960 [id number] 08/23/2020 HPI: Rebeca is 59 y.o. 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 fluticasone (FLONASE) 50 mcg/actuation [place], Suspension 1 spray daily. ??? valACYclovir (VALTREX) [...] laxity not evident on either side. Crank test puller LEFT, pos RIGHT; Grind test heg LEFT, pos RIGHT. Flexion-axial loading with 1+ subluxation and crepitus and pain RIGHT; no subluxation with no pain LEFT. Jackie's test neg. MCPJ bilateral with no varus/valgus [...] Cj Castro Jr, MD Department of Orthopaedics [facility] documented in this encounter Plan of Treatment Upcoming Encounters Date Type Department Care Team (Late st Contact Info) Description 09/03/2024 11:00 AM EDT Office Visit [place] [address] Josephine Espinosa MD [facility] [place] [address] Scheduled Referrals Name Type Priority Associated Diagnoses [...] wrist documented in this encounter Care Teams Senior Cost Accountant Relationship Specialty Start Date End Date Dena Alfonso APRN [address] [place] [address] PCP - General Geriatric Medicine 10/12/16 documented as of this encounter
--- OUTSIDE RECORDS SUMMARY | 2024-07-23 02:05 | XMS_ITS | Encounter Summary ---
Author Organization [facility] Address [facility] [place] [address] Care Team Providers Care Barrel Rib Matting Machine Operator Name Role Phone Kaden Dena BARONE Primary Care Provider Encounter Details Date Type Department Care Team (Latest Contact Info) Description 04/23/2024 Travel Social History Tobacco Use Types Packs/Day [...] 11:00 AM EDT Office [place] [address] Josephine Espinosa MD [facility] [place] [address] documented as of this encounter Visit Diagnoses Not on filedocumented in this encounter Care Teams Barrel Rib Matting Machine Operator Relationship Specialty Start Date End Date Dena Alfonso APRN [address] [place] [address] PCP - General Geriatric Medicine 10/12/16 documented as of this encounter
--- OUTSIDE RECORDS SUMMARY | 2024-07-23 02:05 | XMS_ITS | Encounter Summary ---
Author Organization [facility] Address [facility] [place] [address] Care Team Providers Care Principal Systems Architect Name Role Phone Dena Alfonso LIZABETH Primary Care Provider [phone] Reason for Referral * Consultation (Routine) - Authorized Specialty Diagnoses / Procedures Referred By Mariah tate Referred To Contact Gastroenterology Diagnoses BRCA1 positive Family history of pancreatic cancer BRCA1 Linda Tamayo [address] [place]ATOLOG[place] [address] Josephine Espinosa MD [facility] [place] [address] Referral ID Status Reason Start Date Expiration Date Visits Requested Visits Authorized [id number] Authorized Consult Only 04/23/2024 04/23/2025 1 1 Encounter Details Date Type Department Care Team (Late st Contact Info) Description 04/23/2024 1:00 PM EST Office Visit Hematology/Oncology at [address] [phone] El Bernardo MD [facility] [place] [address] Linda Tamayo [address] HEMATOLOGY AND ONCOLOGY [place], [place] [phone] History of left breast cancer; BRCA1 positive; Family history of pancreatic cancer Social History Tobacco Use Types Packs/Day [...] Sign Reading Time Taken Comments Blood Pressure 141/85 04/23/2024 12:55 PM EST Pulse 78 04/23/2024 12:55 PM EST Temperature 36.2 ??C (97.2 ??F) 04/23/2024 12:[address] Respiratory Rate 18 04/23/2024 12:55 PM EST Oxygen Saturation 99% 04/23/2024 12:55 PM EST Inhaled Oxygen Concentration - - Weight 83.6 kg (184 lb 6.4 oz) 04/23/2024 12:55 PM EST Height 165.1 cm (5' 5) 04/23/2024 12:55 PM EST Body Mass Index 30.69 04/23/2024 12:55 PM EST documented in this encounter Progress Notes * Linda Tamayo APRN - 04/23/2024 1:00 PM EST Subjective: Patient ID: Antonette Hernández is 63 y.o. Problem List: 1. 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 A. Pt-discovered [...] with heterologous chondroid differentiation Tumor Grade: High Xcdsyv-Jlxpn-Jamrawdtgi Score: 9 Tubular Differentiation: 3 Mitotic Rate: [...] carcinoma: 4 Estrogen/Progestin receptors: ER immunoreactivity: Negative [place] immunoreactivity: Negative HER2/yeyo expression by FISH: NEGATIVE [...] FINAL ASSESSMENT: BI-RADS Category 2: Benign Findings Bilateral Mammogram, 04/10/24 IMPRESSION No mammographic evidence of malignancy. Routine screening mammography is recommended. FINAL ASSESSMENT: BI-RADS CATEGORY 2: Benign 2. BRCA 1 mutation Family hx: One [...] same BRCA1 alteration found in her mother ([id number]). Prophylactic BSO 04/2013. Path - Right and left fallopian tubes and ovaries (bilateral salpingo-oophorectomy): No evidence of malignancy. 3. WORK AND FAMILY LIFE CONSULTANT History: The patient is G4, P3 [...] path did not show evidence of malignancy. Antonette is by herself in clinic today. She is overall feeling well, Appetite is good and weight is up a bit. This is a hard time of year with the days getting shorter, and it's also the time of year she was diagnosed. She continues to have lower extremity pain that's intermittent, she's having an MRI today ordered by her PCP. She relates this to neuropathy. This is unchanged. No fevers or recent infections. Does notice some indigestion with spicy foods, her PCP offered acid reducing medication but she haspreferred to modify her diet instead. Review of Systems Constitutional: Negative for activity change, appetite change, chills, fever and unexpected weight change. HENT: Negative. Eyes: Negative. Respiratory: Negative. Cardiovascular: Negative. Gastrointestinal: Negative. Negative for abdominal pain and diarrhea. Genitourinary: Negative. Musculoskeletal: Negative for arthralgias and back pain. Bilateral LE [...] is no guarding. Genitourinary: Comments: Breast exam: no palpable masses, no dimpling, nipples everted without drainage. Pt has not noted any changes in her own exams at home Musculoskeletal: General: No swelling or tenderness. Lymphadenopathy: [...] Psychiatric: Mood and Affect: Mood normal. Labs: STEWARD/STEWARDESS BANQUET Assessment and Plan: Antonette Hernández is 63 y.o. and seen in f/u of left [...] discussed that her daughter who lives in [place] should be tested for the BRCA genes (she has not yet done this as she did not have insurance for a while). Her sister was tested and was negative. She believes her brother was tested and is positive. Her most recent bone scan was done September 2022 and is negative. Her most recent mammogram was done 03/2024 and is also benign. The most recent breast MRI was done on 09/07/20 and was negative. Of note, she mentions she has never had a colonoscopy. She does have a family history of polyps, though she is unsure of what type of polyps they were. We've discussed the benefits of colorectal cancer screening at many visits, she does not want to do the prep. We reviewed a cologuard test which she may consider. Given it has been about 18 years since she completed therapy, we will discharge her back to her PCPtoday. We reviewed the pillars of survivorship including exercise and a balanced diet, appropriate health screenings, annual Breast exams, monthly self breast exams, and annual mammograms. I discussed this with Dr. Bernardo and he also recommended Antonette see Dr. Espinosa in GI, who happens to specialize in screening and can give antonette input on options regarding her BRCA 1 mutation and family history of pancreatic cancer. I have placed a referral for this. We remain available should any new issues arise. documented in this encounter Plan of Treatment Upcoming Encounters Date Type Department Care Team (Late st Contact Info) Description 09/03/2024 11:00 AM EDT Office [place] [address] Josephine Espinosa MD [facility] [place] [address] Scheduled Referrals Name Type Priority Associated Diagnoses Order Schedule Referral to Gastroenterology Outpatient Referral Routine BRCA1 positive Family history of pancreatic cancer Ordered: 04/23/2024 documented as of this encounter Visit Diagnoses Diagnosis History of left breast cancer BRCA1 positive Genetic susceptibility to malignant neoplasm of breast Family history of pancreatic cancer Family history of malignant neoplasm of gastrointestinal tract documented in this encounter Care Teams Principal Systems Architect Relationship Specialty Start Date End Date Dena Alfonso APRN [address] [place] [address] PCP - General Geriatric Medicine 10/12/16 documented as of this encounter
--- OUTSIDE RECORDS SUMMARY | 2024-07-23 02:05 | XMS_ITS | Encounter Summary ---
Author Organization [facility] Address [facility] [place] [address] Care Team Providers Care Junior Underwriter Name Role Phone Dena Alfonso APRN Primary Care Provider [phone] Encounter Details Date Type Department Care Team (Late st Contact Info) Description 01/19/2022 1:00 PM EDT Office Visit Hematology/Oncology at [address] [phone] El Bernardo MD [facility] [place] [address] History of left breast cancer Social History [...] with heterologous chondroid differentiation Tumor Grade: High Xgvkok-Xyhes-Pqtnqshtbd Score: 9 Tubular Differentiation: 3 Mitotic Rate: [...] same BRCA1 alteration found in her mother ([id number]). Prophylactic BSO 04/2013. Path - Right and left fallopian tubes and ovaries (bilateral salpingo-oophorectomy): No evidence of malignancy. 3. WOOL HAT FINISHER History: The patient is G4, P3 with [...] Psychiatric: Mood and Affect: Mood normal. Labs: CLIENT INTEGRATION MANAGER Assessment and Plan: Rebeca Hernández is 61 [...] talked about testing for her daughter(lives in [place]) who plans to check into that. Cost [...] 11:00 AM EDT Office [place] [address] Josephine Juárez MD [facility] [place] [address] documented as of this encounter Visit Diagnoses Diagnosis History of left breast cancer documented in this encounter Care Teams Junior Underwriter Relationship Specialty Start Date End Date Dena Alfonso APRN [address] [place] [address] PCP - General Geriatric Medicine 10/12/16 documented as of this encounter
--- OUTSIDE RECORDS SUMMARY | 2024-07-23 02:05 | XMS_ITS | Encounter Summary ---
Author Organization [facility] Address [facility] [place] [address] Care Team Providers Care Rubber Goods Tester Water Name Role Phone yKDena cornell COMPUTER SCIENCE TEACHER Primary Care Provider [phone] Reason for Visit * Reason Comments Aneurysm (Aortic) * Consultation (Routine) - Closed Specialty Diagnoses / Procedures Referred By Mariah t Referred To Contact Cardiology Diagnoses Thoracic aortic ectasia Personal history of other diseases of the circulatory system Shortness of breath Dena Alfonso APRN [address] [place] [address] Lester Parada MD [facility] [place] [address] Referral ID Status Reason Start Date Expiration Date V isits Requested Visits Authorized [id number] Closed Consult, Test & Treat Connection Center PCP Updated and/or Approved 07/20/2020 07/20/2021 6 6 Encounter Details Date Type Department Care Team (Late st Contact Info) Description 09/19/2020 3:20 PM EDT Office Visit Cardiology at [address] [phone] Lester Parada MD [facility] [place] [address] Thoracic aortic aneurysm without rupture [...] HPI Last seen by Dr Govea at [facility] 07/2020, at which time a follow-up TTE [...] Rfl: 3 ??? ONETOUCH VERIO IQ METER [facility], USE TO TEST DAILY. GOAL A1C LESS [...] Rfl: 3 ??? fluticasone (FLONASE) 50 mcg/actuation [place], Suspension, 1 spray by Each Nare route [...] Depression ??? Chest pain A. Stress test [facility] 06/28: exercised to 10.1 METs and 152 [...] 11:00 AM EDT Office Visit [place] [address] Josephine Espinosa MD [facility] [place] [address] documented as of this encounter Visit Diagnoses Diagnosis Thoracic aortic aneurysm without rupture Thoracic aneurysm without mention of rupture documented in this encounter Care Teams Rubber Goods Tester Water Relationship Specialty Start Date End Date Dena Alfonso APRN [address] [place] [id number] PCP - General Geriatric Medicine 10/12/16 documented as of this encounter
--- OUTSIDE RECORDS SUMMARY | 2024-07-23 02:05 | XMS_ITS | Encounter Summary ---
Author Organization [facility] Address [facility] [place] [address] Care Team Providers Care Stope Miner Name Role Phone Dena Alfonso APRN Primary Care Provider [phone] Reason for Referral * Diagnostic Test (Routine) - Closed Specialty Diagnoses / Procedures Referred By Mariah tate Referred To Contact Radiology Diagnoses Breast cancer, stage 2, left BRCA1 gene mutation positive Procedures MRI Breast wwo Contrast El Sanabria MD [facility] [place] [address] [place] [address] Referral ID Status Reason Start Date Expiration Date V isits Requested Visits Authorized [id number] Closed Specialty Service Requested 07/22/2020 01/19/2022 1 1 Reason for Visit * Diagnostic Test (Routine) - Closed Specialty Diagnoses / Procedures Referred By Mariah tate Referred To Contact Radiology Diagnoses Breast cancer, stage 2, left BRCA1 gene mutation positive Procedures MRI Breast wwo Contrast El Sanabria MD [facility] [place] [address] [place] [address] Referral ID Status Reason Start Date Expiration Date V isits Requested Visits Authorized [id number] Closed Specialty Service Requested 07/22/2020 01/19/2022 1 1 Encounter Details Date Type Department Care Team (Latest Contact Info) Description 09/07/2020 4:21 PM EDT - 09/07/2020 11:59 PM EDT Hospital Encounter MRI at [facility] [place] [address] El Bernardo MD [facility] [place] [address] Breast cancer, stage 2, left; BRCA1 gene [...] (2,000 unit) Capsule Take by mouth daily. olopatadine (PATADAY) 0.2 % Drops INSTILL 1 DROP INTO AFFECTED EYE S ONCE DAILY NEEDED 3 12/12/2017 fluticasone (FLONASE) 50 mcg/actuation [place], Suspension 1 spray by Each Nare route daily as needed. cetirizine (ZYRTEC) 10 mg Tablet Take 10 mg by mouth daily as needed for Allergies. Reported on 10/12/2016 EPINEPHrine (EPIPEN) 0.3 mg/0.3 mL (1:1,000) Auto-Injector Inject 0.3 mLs into the muscle once as needed (difficulty breathing, throat swelling, loss of consciousness) for up to 1 dose. Call 911. 2 each 1 06/16/2014 metoprolol succinate XL (Toprol-XL) 25 mg Tablet Sustained Release 24 hr Take 1 tablet by mouth daily. 30 tablet 12 07/21/2020 03/29/2021 meloxicam (MOBIC) 15 mg Tablet TAKE ONE TABLET BY MOUTH EVERY DAY NEEDED FOR PAIN 0 08/04/2018 03/29/2021 betamethasone dipropionate (DIPROLENE) 0.05 % Ointment Apply to hand eczema 1-2 times daily, prn 45 g 3 02/10/2018 09/19/2020 documented as of this encounter Plan of Treatment Upcoming Encounters Date Type Department Care Team (Late st Contact Info) Description 09/03/2024 11:00 AM EDT Office [place] [address] Josephine Espinosa MD [facility] [place] [address] documented as of this encounter Procedures Procedure [...] ? Electronically signed by: Deisy Vasquez MD, [facility] ([phone]), at 09/08/2020 3:52 PM Narrative 09/08/2020 3:52 PM EDT BILATERAL BREAST MRI CLINICAL INDICATION: Breast high risk screening TECHNIQUE: Multiplanar sequences were obtained pre- and post- Dotarem enhancement, to include SPGR weighted dynamic run-off and subtraction sequences obtained after the intravenous administration of 18 ccs of Dotarem. Computer algorithm analysis for lesion detection and kinetic contrast enhancement curve analysis was performed, using [employer] software. COMPARISON STUDIES: Compared and/or correlated with [...] chest wall or skin.. El Bernardo MD [facility] MRI ORDERABLES documented in this encounter Visit [...] mLs documented in this encounter Care Teams Stope Miner Relationship Specialty Start Date End Date Dena Alfonso APRN [address] [place] [address] PCP - General Geriatric Medicine 10/12/16 documented as of this encounter
--- OUTSIDE RECORDS SUMMARY | 2024-07-23 02:05 | XMS_ITS | Encounter Summary ---
Author Organization [facility] Address [facility] [place] [address] Care Team Providers Care Supervisor Paint Department Name Role Phone Dena Alfonso APRN Primary Care Provider [phone] Encounter Details Date Type Department Care Team (Late Contact Info) Description 12/05/2021 Orders Only Hematology [place] [phone] El Bernardo MD [facility] [place] [address] History of left breast cancer; BRCA1 positive; [...] 11:00 AM EDT Office [place] [phone] Josephine Espinosa MD [facility] [place] [address] documented as of this encounter Results * [...] who have questions please contact the health rn critical care that requested your imaging first. ? El [...] mammogram documented in this encounter Care Teams Supervisor Paint Department Relationship Specialty Start Date End Date Dena Alfosno APRN [address] [place] [id number] PCP - General Geriatric Medicine 10/12/16 documented as of this encounter
--- OUTSIDE RECORDS SUMMARY | 2024-07-23 02:05 | XMS_ITS | Encounter Summary ---
Author Organization [facility] Address [facility] [place] [address] Care Team Providers Care Discharge Rn Name Role Phone Dena Alfonso LIZABETH Primary Care Provider [phone] Encounter Details Date Type Department Care Team (Late st Contact Info) Description 09/12/2022 1:00 PM EDT Office Visit Hematology/Oncology at [address] [phone] Abe Tamayo APRN [address] [place] [address] DR HEMATOLOGY AND ONCOLOGY [place], [place] [id number] History of left breast cancer; BRCA1 positive; [...] this encounter Progress Notes * Abe Tamayo, PRODUCT SAFETY TESTER - 09/12/2022 1:00 PM EDT Images from the original note were not included. Subjective: Patient ID: Rebeca Hernández is 61 y.o. Problem List: 1. 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 A. Pt-discovered [...] with heterologous chondroid differentiation Tumor Grade: High Hcojxr-Oaviq-Loeqcwbhrn Score: 9 Tubular Differentiation: 3 Mitotic Rate: [...] carcinoma: 4 Estrogen/Progestin receptors: ER immunoreactivity: Negative FL immunoreactivity: Negative HER2/yeyo expression by FISH: NEGATIVE [...] same BRCA1 alteration found in her mother ([id number]). Prophylactic BSO 04/2013. Path - Right and left fallopian tubes and ovaries (bilateral salpingo-oophorectomy): No evidence of malignancy. 3. RECREATION OFFICER History: The patient is G4, P3 with [...] Psychiatric: Mood and Affect: Mood normal. Labs: DEPARTMENT SALES MANAGER Assessment and Plan: Rebeca Hernández is [...] discussed that her daughter who lives in [place] should be tested for the BRCA genes. [...] 11:00 AM EDT Office [place] [address] Josephine Espinosa MD [facility] [place] [address] documented as of this encounter Visit Diagnoses Diagnosis History of left breast cancer BRCA1 positive Genetic susceptibility to malignant neoplasm of breast Rib pain on left side Chest pain, unspecified documented in this encounter Care Teams Discharge Rn Relationship Specialty Start Date End Date Dena Alfonso APRN [address] [place] [address] PCP - General Geriatric Medicine 10/12/16 documented as of this encounter
--- OUTSIDE RECORDS SUMMARY | 2024-07-23 02:05 | XMS_ITS | Encounter Summary ---
Author Organization [facility] Address [facility] [place] [address] Care Team Providers Care Air Pumper Name Role Phone Kaden Dena BARONE Primary Care Provider [phone] Encounter Details Date Type Department Care Team [...] 11:00 AM EDT Office [place] [address] Josephine Espinosa MD [facility] [place] [address] documented as of this encounter Visit Diagnoses Not on filedocumented in this encounter Care Teams Air Pumper Relationship Specialty Start Date End Date Dena Alfonso APRN [address] [place] [address] PCP - General Geriatric Medicine 10/12/16 documented as of this encounter
--- OUTSIDE RECORDS SUMMARY | 2024-07-23 02:05 | XMS_ITS | Encounter Summary ---
Author Organization [facility] Address [address] [place] [address] Care Team Providers Care Light Armored Vehicle Officer Name Role Phone Unavailable Primary Care Provider Unavailabl e Encounter Details Date Type Department Care Team (Late st Contact Info) Description 07/08/1999 Results Only [facility] [address] [place] [address] Raf Bowen MD Social History Tobacco Use [...] ? TY TAYLOR ? Accession #: ? [id number] ? : ? 1960 (Age: 38) ??F [...] submitted entirely as (A) and (B). ??(Dr. Vines)/[facility] End of Report KORY WHITT 07/08/1999 9:36 EST 07/08/1999 9:37 EST us Raf Bowen MD PATHOLOGY ORDERABLES Final Resul t KORY WHITT [address] [place] [address] documented in this encounter Visit Diagnoses Not on filedocumented in this encounter
--- OUTSIDE RECORDS SUMMARY | 2024-07-23 02:05 | XMS_ITS | Encounter Summary ---
Author Organization [facility] [place] [address] Care Team Providers Care Pigment Supplier Name Role Phone Dena Alfonso APRN Primary Care Provider [phone] Reason for Visit * Reason Onset Date Comments Other 09/30/2023 Lump on right br east Encounter Details Date Type Department Care Team (Late Contact Info) Description 09/30/2023 Telephone Hematology/Oncology at [address] [phone] Lupe Mustafa RN Other (Lump on right [...] Upcoming Encounters Date Type Department Care Team ([facility] Contact Info) Description 09/03/2024 11:00 AM EDT Office [place] [phone] Josephine Espinosa MD [facility] [place] [address] documented as of this encounter Visit Diagnoses Not on filedocumented in this encounter Care Teams Pigment Supplier Relationship Specialty Start Date End Date Dena Alfonso APRN [address] [place] [address] PCP - General Geriatric Medicine 10/12/16 documented as of this encounter
--- OUTSIDE RECORDS SUMMARY | 2024-07-23 02:05 | XMS_ITS | Encounter Summary ---
Author Organization [facility] Address [facility] [place] [address] Care Team Providers Care Waste Recycler Name Role Phone Dena Alfonso APRN Primary Care Provider Encounter Details Date Type Department Care Team (Late st Contact Info) Description 03/29/2021 Orders Only Obstetrics [place] [address] Sydney Bueno APRN Social History Tobacco Use Types Packs/Day Years [...] 11:00 AM EDT Office [place] [address] Josephine Espinosa MD [facility] [place] [address] documented as of this encounter Visit Diagnoses Not on filedocumented in this encounter Care Teams Waste Recycler Relationship Specialty Start Date End Date Dena Alfonso APRN [address] [place] [address] PCP - General Geriatric Medicine 10/12/16 documented as of this encounter
--- OUTSIDE RECORDS SUMMARY | 2024-07-23 02:05 | XMS_ITS | Encounter Summary ---
Author Organization [facility] [place] [address] Care Team Providers Care Shucker Name Role Phone Dena Alfonso APRN Primary Care Provider [phone] Reason for Visit * Reason Onset Date Comments Leg Pain 12/05/2021 Ongoing leg pain 6+ months. Need FUV with Dr. Bernardo. Encounter Details Date Type Department Care Team (Late st Contact Info) Description 12/05/2021 Telephone Hematology/Oncology at [address] [phone] Hanh Callaway RN Leg Pain [...] will be todo the bone scan in [facility], Mammo and MRI in [place], new labs locally (CBC, CMP and B12) [...] or breast MRI? ----- Message ----- From: Janice Diaz Sent: 12/05/2021 12:41 PM EDT To: Hem Onc Nurse Subject: Leg Pain Rebeca has had leg pain for 6 months and they cant seem to figure out what it is her and her PCP. She is wondering if we can help as she thinks it might be her cancer metastasized to her legs. She stated it gets worse at night. Can we call her back at [phone]. Thanks Almaz~ documented in this encounter Plan of Treatment Upcoming Encounters Date Type Department Care Team (Late st Contact Info) Description 09/03/2024 11:00 AM EDT Office Visit [place] [address] Josephine Espinosa MD [facility] [place] [address] documented as of this encounter Visit Diagnoses Not on filedocumented in this encounter Care Teams Shucker Relationship Specialty Start Date End Date Dena Alfonso APRN [address] [place] [address] PCP - General Geriatric Medicine 10/12/16 documented as of this encounter
--- OUTSIDE RECORDS SUMMARY | 2024-07-23 02:05 | XMS_ITS | Clinical Summary ---
Author Organization Counts Include [facility] Address [facility] [place] [address] Care Team Providers Care Centerpuncher Name Role Phone Dena Alfonso APRN Primary Care Provider [phone] Allergies Active Allergy Reactions Criticality Noted Date [...] consciousness) for up to 1 dose. Call [phone]. 2 each 1 06/16/2014 Active Additional Information Patient not taking.Reported on 03/29/2023 cetirizine (ZYRTEC) 10 mg Tablet Take 10 mg by mouth daily as needed for Allergies. Reported on 10/12/2016 Active valACYclovir (VALTREX) 500 mg Tablet Take 1 tablet by mouth 2 times daily. 6 tablet 10/24/2016 Active fluticasone (FLONASE) 50 mcg/actuation [place], Suspension 1 spray by Each Nare route [...] pain 08/12/2011 Overview (08/12/2011): A. Stress test [facility] 06/28: exercised to 10.1 METs and [...] Needle biopsies: Left breast. Diagnosis: Invasive carcinoma Encounters Date Type Department Care Team Description 04/23/2024 1:00 PM EST Office Visit Hematology/Oncology at [address] [phone] El Bernardo MD LaRoza, Stephanie A, MUSIC ORCHESTRATOR History of left breast cancer; BRCA1 positive; Family history of pancreatic cancer 04/23/2024 Travel from Last 3 Months Immunizations Name Administration Dates Next Due Influenza (FluMist) Quadriva lent, Intranasal LIVE 05/21/2012,03/14/2011,03/17/2009 Influenza (Novel V3A5-05) Injectable 06/06/2009 Influenza Quadrivalent with Preservative 015,03/18/2014 Influenza Quadrivalent, Preservative Free 2019,03/30/2019,07/06/2013 Td Adult (Decavac, Tenivac) 06/16/2012, 1 Tdap (Adacel, Boostrix) 06/16/2012 Family History Medical History Relation Comments [...] Mass Index 30.69 04/23/2024 12:55 PM EST Plan of Treatment Upcoming Encounters Date Type Department Care Team (Late st Contact Info) Description 09/03/2024 11:00 AM EDT Office [place] [address] Josephine Espinosa MD [facility] [place] [address] Health Maintenance Due Date Last Done Comments CT Colonography 1961 Colonoscopy 1961 Colorectal Cancer Screening 1960 FIT DNA 1960 FIT 1960 Sigmoidoscopy (10 year) with FIT yearly 1960 Sigmoidoscopy 1960 DM Hemoglobin A1c 12/31/1971 DM Opthalmology Exam 12/31/1971 DM Urine Microalbumin yearly 12/31/1971 HIV screen 12/31/1979 Hepatitis C Screening 12/31/1979 Lipid Screening 12/31/1979 Pneumoccocal Vaccine: 50+ (1 of 2 - PCV) 1980 Breast Cancer Share Decision Needed 2001 Zoster vaccine (1 of 2) 12/31/2011 DM Creatinine yearly 08/14/2012 08/15/2011 Advance Directive 2016 RSV Vaccine (1 - Risk 60-74 years 1-dose series) 2021 Tetanus/Diphtheria/Pertussis Vaccines (2 - Td or Tdap) 06/16/2022 06/16/2012, 06/16/2012, 06/24/2000 Covid-19 Vaccine ( - 2023-2 5 season) 2024 Influenza (Flu) vaccine (1 o f 1 - Influenza standard series) 02/16/2024 03/03/2020, 03/30/2019, 03/15/2015, Additional history exists HPV test 03/29/2026 03/29/2021, 12/14/2011 PAP Smear 03/29/2026 03/29/2021, 04/17, 12/14/2011 Breast Cancer screening 04/10/2026 04/10/20 24, 02/22/2023, 01/18/2022, Additional history exists Procedures Procedure Name Priority Date/Time Associated Diagnosis Comments MAMMO SCREENING CAD AND ELIE BILATERAL Routine 04/10/2024 2:26 PM EDT Visit for screening mammogram HPV Routine 03/29/2021 2:30 PM EDT WEB DEVELOPER PROGRAMMER CYTOLOGY FINAL REPORT Routine 03/29/2021 2:30 PM EDT BASIC METABOLIC PANEL Routine 08/15/2011 7:30 AM EST CHF (congestive heart failure) from Last 3 Months or Most Recently Relevant to Health Maintenance Results * Mammo Screening Cad and Elie Bilateral (04/10/2024 2:26 PM EDT) WORKSTATION ID [id number] DH RAD Anatomical Region Laterality Modality Breast Bilateral [...] have questions please contact the health rn acute care that requested your imaging first. ? [facility] [address] [place], [place] ??[address] Narrative 04/14/2024 8:38 AM EDT EXAMINATION: MAMMO SCREENING CAD AND ELIE [...] (03/29/2021 2:30 PM EDT) HPV16 NEGATIVE NEGATIVE [facility] HPV 18 NEGATIVE NEGATIVE [facility] HPV Other HR NEGATIVE NEGATIVE [facility] HPV Interpretation See Comment [facility] Comment: NEGATIVE for high-risk HPV *. [...] Lab Sydney Bueno APRN PATHOLOGY/CYTOLOGY O RDERAALFONSO [facility] [place] [address] * Medical Collector Cytology Final Report (03/29/2021 2:30 PM EDT) Medical Collector Cytology Final Report [id number] ? Location: 5L The signing pathologist has (i) examined the relevant preparation(s) for the specimen(s) and (ii) rendered or confirmed the diagnosis(es). . ? Medical Collector Final DIAGNOSIS Normal Negative for intraepithelial lesion or malignancy (NILM). For consensus guidelines for the management of cervical cancer screening test results, please see: ?? http://www.asccp.o rg . Electronically signed by: ?Particia SEGAL(ASCP)[place] Verified: ??04/11/2021 10:31 ??Maternity Floor Supervisor Performed at: ??-[facility] Dept. of Pathology, [place], [place] HPV RESULTS HPV16 (Result) ?Negative HPV18 [...] Clinical Genomics and Advanced Technology (CGAT) at [facility]. ? - El Garg, PhD, [facility], Director-[facility] STATEMENT OF ADEQUACY Specimen submitted is satisfactory. Endocervical component present. CLINICAL INFORMATION HPV Option: ?Concurrent HPV and Pap CT/NG Option: ?No Preparation: ? Liquid based Pap Specimen Source: ? Cervical/Endocervi kelly LMP: ? postmenopausal Hysterectomy: ?No : ?No : ?No I.U.D.: ?No Pelvic Radiation: ?No Hist Abnl Pap/Biopsy: ?Yes, history of previous abnormal Pap Prior WEB DEVELOPER PROGRAMMER Therapy: ? Cone Biopsy Hist of HPV Vaccine: ? No ICD Diagnosis: ? Z12.4 Encounter for screening for malignant neoplasm of cervix Clinical Data, Significant Therapy and Clinical Impression ?? : ?cone in 1992 . CLINICAL INFORMATION This Pap Test has been evaluated with the assistance of the [employer] Pap Test Imaging System. Note: The Pap test is a screening test for cervical cancer with an inherent false-negative rate dependent upon several variables. For further information please contact the [facility]. Reference: Nishi CALDERON. Explosive Ordnance Disposal Manager of Pap Smear Results. In: Julio Cesar BS, Misael DEL CASTILLO, ed. The Pap Smear. [place]: Jerad, 2002: 71-77. [facility] 03/29/2021 2:30 PM EDT Sydney Bueno APRN PATHOLOGY/CYTOLOGY O RDERABLES [facility] [place] [address] * Basic Metabolic Panel (non-fasting) (08/15/2011 7:30 [...] Lab Jeevan Orourke MD CHEMISTRY ORDERABL ES [facility] from Last 3 Months or Most Recently Relevant to Health Maintenance Advance Directives * Full Code (Latest Code Status on File) Date Activated Date Inactivated Comments 04/21/2013 5:36 PM 04/21/2013 11:17 PM * Full Code Date Activated Date Inactivated Comments 04/21/2013 12:52 PM 04/21/2013 5:36 PM Care Teams Centerpuncher Relationship Specialty Start Date End Date Dena Alfonso APRN [address] [place] [address] PCP - General Geriatric Medicine 10/12/16
--- OUTSIDE RECORDS SUMMARY | 2024-07-23 02:05 | XMS_ITS | Encounter Summary ---
Author Organization [facility] Address [facility] [place] [address] Care Team Providers Care Band Booker Name Role Phone Dena Alfonso APRN Primary Care Provider +1 [phone] Reason for Visit * Reason Comments Uterine [...] review by clinic. Dena Alfonso APRN [address] [place] [address] [facility] [place] [address] [place] [address] Referral ID Status Reason Start Date Expiration Date V isits Requested Visits Authorized [id number] Closed Consult, Test & Treat Connection [facility] PCP Updated and/or Approved 03/20/2021 03/20/2022 6 6 Encounter Details Date Type Department Care Team (Late st Contact Info) Description 03/29/2021 2:30 PM EDT Office Visit Obstetrics [place] [address] Sydney Bueno APRN Screening for malignant neoplasm of cervix; Uterovaginal [...] Female Pelvic Medicine and Reconstructive Surgery @ [facility] Patient Name: Rebeca Hernández Patient Primary Care [...] NEEDED 3 ??? fluticasone (FLONASE) 50 mcg/actuation [place], Suspension 1 spray by Each Nare route [...] history of gynecologic cancer Last Pap smear: 2015 NILM To further delineate patient's urinary symptoms, [...] atrophic epithelium, no lesion or dystrophic change, [place]'s and [place]tholin glands normal, urethra without tenderness [...] with 20 minutes of the time spent [id number] in discussing her diagnosis and reviewing options for treatment. Sydney Bueno APRN Division of Female Pelvic Medicine/Reconstructive Surgery CC: Dena Alfonso APRN documented in this encounter Plan of Treatment Upcoming Encounters Date Type Department Care Team (Late st Contact Info) Description 09/03/2024 11:00 AM EDT Office [place] [address] Josephine Espinosa MD [facility] [place] [address] documented as of this encounter Procedures Procedure Name Priority Date/Time Associated Diagnosis Comments CYTOPATHOLOGY GYNECOLOGICAL Routine 03/29/2021 4:18 PM EDT Screening for malignant neoplasm of cervix HPV Routine 03/29/2021 2:30 PM EDT GAS ENGINE REPAIRER CYTOLOGY INTERPRETATION Routine 03/29/2021 2:30 PM EDT GAS ENGINE REPAIRER CYTOLOGY FINAL REPORT Routine 03/29/2021 2:30 PM EDT BLADDER SCANNER Routine 03/29/2021 Uterovaginal prolapse, incomplete POCT URINE DIPSTICK Routine 03/29/2021 Uterovaginal prolapse, incomplete documented in this encounter Results * Cytopathology Gynecological (03/29/2021 4:18 PM EDT) AP Specimen 03/29/2021 4:18 PM EDT 03/29/2021 4:18 PM EDT Narrative [facility] - 03/29/2021 4:18 PM EDT Specimen requisition ordered. ??Separate Pathology report to follow Sydney Bueno APRN PATHOLOGY/CYTOLOGY O RDERABLES [facility] [place] [address] * Seed Specialist Cytology Final Report (03/29/2021 2:30 PM EDT) Seed Specialist Cytology Final Report [id number] ? Location: 5L The signing pathologist has (i) examined the relevant preparation(s) for the specimen(s) and (ii) rendered or confirmed the diagnosis(es). . ? Seed Specialist Final DIAGNOSIS Normal Negative for intraepithelial lesion or malignancy (NILM). For consensus guidelines for the management of cervical cancer screening test results, please see: ?? http://www.[email or web address].o rg . Electronically signed by: ?Patricia SEGAL(ASCP)[place]live Verified: ??04/11/2021 10:31 ??Waste Recycler Performed at: ??-[facility] Dept. of Pathology, [place], [place] HPV RESULTS HPV16 (Result) ?Negative HPV18 [...] Clinical Genomics and Advanced Technology (CGAT) at [facility]. ? - El Garg, PhD, [facility], Director-[facility] STATEMENT OF ADEQUACY Specimen submitted is satisfactory. Endocervical component present. CLINICAL INFORMATION HPV Option: ?Concurrent HPV and Pap CT/NG Option: ?No Preparation: ? Liquid based Pap Specimen Source: ? Cervical/Endocervi kelly LMP: ? postmenopausal Hysterectomy: ?No : ?No : ?No I.U.D.: ?No Pelvic Radiation: ?No Hist Abnl Pap/Biopsy: ?Yes, history of previous abnormal Pap Prior GAS ENGINE REPAIRER Therapy: ? Cone Biopsy Hist of HPV Vaccine: ? No ICD Diagnosis: ? Z12.4 Encounter for screening for malignant neoplasm of cervix Clinical Data, Significant Therapy and Clinical Impression ?? : ?cone in 1992 . CLINICAL INFORMATION This Pap Test has been evaluated with the assistance of the Tellpep Pap Test Imaging System. Note: The Pap test is a screening test for cervical cancer with an inherent false-negative rate dependent upon several variables. For further information please contact the [facility] Laboratory. Reference: Nishi CALDERON. Supervisor Salvage of Pap Smear Results. In: Julio Cesar BS, Misael DEL CASTILLO, ed. The Pap Smear. [place]: Jerad, 2002: 71-77. [facility] 03/29/2021 2:30 PM EDT Sydney Bueno APRN PATHOLOGY/CYTOLOGY O RDERABLES [facility] [place] [address] * GAS ENGINE REPAIRER Cytology Interpretation (03/29/2021 2:30 PM EDT) Seed Specialist Cytology Interpretation NILM [facility] Comment:Seed Specialist Cytology Final R eport Endocervical Component Present [facility] AP Specimen 03/29/2021 2:30 PM EDT 04/11/2021 10:31 AM EDT Sydney Bueno APRN PATHOLOGY/CYTOLOGY O RDERABLES Performing Organization Address [facility]/ZIP Co de Phone Number [facility] [place] [address] * HPV (03/29/2021 2:30 PM EDT) [facility] HPV16 NEGATIVE NEGATIVE [facility] HPV 18 NEGATIVE NEGATIVE [facility] HPV Other HR NEGATIVE NEGATIVE [facility] HPV Interpretation See Comment [facility] Comment: NEGATIVE for high-risk [...] Lab Sydney Bueno APRN PATHOLOGY/CYTOLOGY O RDERAALFONSO Performing Organization Address [facility] Co de Phone Number [facility] [place] [address] * Bladder Scanner (03/29/2021) [facility] Bladder Scan (mL) 90 mL Sydney Bueno APRN URO PROC W/O RFL ORD ERABLES * POCT urine dipstick (03/29/2021) [facility] POC Sp Elnora 1.010 1.002 - 1.030 POC pH, UA [...] Neg. Negative - Negative dorys/uL Sydney Bueno PULL OVER MACHINE OPERATOR POINT OF CARE TEST O RDERABLES documented in this encounter Visit Diagnoses Diagnosis Screening for malignant neoplasm of cervix Screening for malignant neoplasm of the cervix Uterovaginal prolapse, incomplete documented in this encounter Care Teams Band Booker Relationship Specialty Start Date End Date Dena Alfonso APRN [address] [place] [address] PCP - General Geriatric Medicine 10/12/16 documented as of this encounter
--- OUTSIDE RECORDS SUMMARY | 2024-07-23 02:05 | XMS_ITS | Encounter Summary ---
Author Organization [facility] Address [facility] [place] [address] Care Team Providers Care Lining Layer Name Role Phone Kaden Dena BARONE Primary Care Provider Encounter Details Date Type Department Care Team (Late st Contact Info) Description 03/29/2021 Orders Only Obstetrics [place] [address] Kenyetta Elizabeth, RN Vaginal atrophy Social History Tobacco Use [...] 11:00 AM EDT Office Visit [place] [address] Josephine Espinosa MD [facility] [place] [address] documented as of this encounter Visit Diagnoses Diagnosis Vaginal atrophy Postmenopausal atrophic vaginitis documented in this encounter Care Teams Lining Layer Relationship Specialty Start Date End Date Dena Alfonso APRN [address] [place] [address] PCP - General Geriatric Medicine 10/12/16 documented as of this encounter
--- OUTSIDE RECORDS SUMMARY | 2024-07-23 02:05 | XMS_ITS | Encounter Summary ---
Author Organization [facility] Address [facility] [place] [address] Care Team Providers Care Database Reporting Consultant Name Role Phone Dena Alfonso APRN Primary Care Provider +1- [phone] Encounter Details Date Type Department Care Team (Latest Contact Info) Description 01/18/2022 2:39 PM EDT - 01/18/2022 11:59 PM EDT Hospital Encounter Mammography/[place] [phone] El Bernardo MD [facility] [place] [address] History of left breast cancer; BRCA1 positive; [...] her hand eczema 45 g 3 05/27/2020 Cybrata NetworksTOUCH VERIO Strip USE TO TEST DAILY. GOAL [...] NEEDED 3 12/12/2017 fluticasone (FLONASE) 50 mcg/actuation [place], Suspension 1 spray by Each Nare route [...] 06/16/2014 estradioL (ESTRACE) 0.01 % (0.1 mg/gram) CreamIndications:Vagi [...] 11:00 AM EDT Office [place] [address] Josephine Espinosa MD [facility] [place] [address] documented as of this encounter Procedures Procedure [...] who have questions please contact the health complex care nurse practitioner that requested your imaging first. ? El Bernardo MD IMG MAMMO ORDERABLES documented in this encounter Visit Diagnoses Diagnosis History of left breast cancer BRCA1 positive Genetic susceptibility to malignant neoplasm of breast Breast cancer screening by mammogram documented in this encounter Care Teams Database Reporting Consultant Relationship Specialty Start Date End Date Dena Alfonso APRN [address] [facility] [place] [address] PCP - General Geriatric Medicine 10/12/16 documented as of this encounter
--- OUTSIDE RECORDS SUMMARY | 2024-07-23 02:05 | XMS_ITS | Encounter Summary ---
Author Organization [facility] [place] [address] Care Team Providers Care Pharmaceutical Scientist Name Role Phone Dena Alfonso APRN Primary Care Provider [phone]- [phone] Encounter Details Date Type Department Care Team (Late Contact Info) Description 09/13/2022 3:20 PM EDT Ancillary Procedure Radiology Library at [facility] [place] [address] El Bernardo MD [facility] [place] [address] Social History Tobacco Use Types Packs/Day Years [...] 11:00 AM EDT Office Visit Gastroenterology at [facility] [place] [address] Josephine Espinosa MD [facility] [place] [address] documented as of this encounter Procedures Procedure Name Priority Date/Time Associated Diagnosis Comments FILM LIBRARY STORAGE ONLY ULTRASOUND STUDY Routine 09/13/2022 3:18 PM EDT documented in this encounter Results * Film Library- Storage Only Ultrasound Study (09/13/2022 3:18 PM EDT) Narrative [facility] - 09/13/2022 3:18 PM EDT This exam is auto-finalizing. It's purpose is for storage only. El Bernardo MD IMG FILM LIBRARY ORD ERABLES [place], [place] documented in this encounter Visit Diagnoses Not on filedocumented in this encounter Care Teams Pharmaceutical Scientist Relationship Specialty Start Date End Date Dena Alfonso APRN [address] [place] [address] PCP - General Geriatric Medicine 10/12/16 documented as of this encounter
--- OUTSIDE RECORDS SUMMARY | 2024-07-23 02:05 | XMS_ITS | Encounter Summary ---
Author Organization [facility] Address [facility] [place] [address] Care Team Providers Care Hydro Electric Station Operator Name Role Phone Dena Alfonso APRN Primary Care Provider [phone] [phone] Encounter Details Date Type Department Care Team (Late st Contact Info) Description 10/12/2020 Telephone Cardiology at [address] [place] [address] Lester Parada MD [facility] [place] [address] Social History Tobacco Use Types Packs/Day Years [...] 10:21 AM EDT ----- Message from Lester Pardaa MD sent at 10/11/2020 6:38 PM EDT ----- Good news. Patient's aorta isnt enlarged. The distance on the echo was likely due to off-axis measurement documented in this encounter Plan of Treatment Upcoming Encounters Date Type Department Care Team (Late st Contact Info) Description 09/03/2024 11:00 AM EDT Office [place] [address] Josephine Espinosa MD [facility] [place] [address] documented as of this encounter Visit Diagnoses Not on filedocumented in this encounter Care Teams Hydro Electric Station Operator Relationship Specialty Start Date End Date Dena Alfonso APRN [address] [place] [address] PCP - General Geriatric Medicine 10/12/16 documented as of this encounter
--- OUTSIDE RECORDS SUMMARY | 2024-07-23 02:05 | XMS_ITS | Encounter Summary ---
Author Organization [facility] Address [facility] [place] [address] Care Team Providers Care Repair Armature Winder Helper Name Role Phone Dena Alfonso APRN Primary Care Provider [phone] Reason for Visit * Reason Onset Date Comments Results 06/19/2023 MRI Encounter Details Date Type Department Care Team (Late Contact Info) Description 06/19/2023 Telephone Hematology/Oncology at [address] [phone] Anna Hanna RN Results (MRI ) Social [...] of April. She can be reached at [phone]. documented in this encounter Plan of Treatment Upcoming Encounters Date Type Department Care Team (Late Contact Info) Description 09/03/2024 11:00 AM EDT Office Visit [place] [phone] Josephine Espinosa MD [facility] [place] [address] documented as of this encounter Visit Diagnoses Not on filedocumented in this encounter Care Teams Repair Armature Winder Helper Relationship Specialty Start Date End Date Dena Alfonso APRN [address] [place] [address] PCP - General Geriatric Medicine 10/12/16 documented as of this encounter
--- OUTSIDE RECORDS SUMMARY | 2024-07-23 02:05 | XMS_ITS | Encounter Summary ---
Author Organization [facility] Address [facility] [place] [address] Care Team Providers Care Chief Dispatcher Service Name Role Phone KadenMikeyDenamerlin BARONE Primary Care [...] 11:00 AM EDT Office [place] [address] Josephine Espinosa MD [facility] [place] [address] documented as of this encounter Visit Diagnoses Not on filedocumented in this encounter Care Teams Chief Dispatcher Service Relationship Specialty Start Date End Date Dena Alfonso APRN [address] [place] [address] PCP - General Geriatric Medicine 10/12/16 documented as of this encounter
--- OUTSIDE RECORDS SUMMARY | 2024-07-23 02:05 | XMS_ITS | Encounter Summary ---
Author Organization [facility] Address [facility] [place] [address] Care Team Providers Care Spark Plug Tester Name Role Phone Dena Alfonso APRN Primary Care Provider [phone]- [phone] Encounter Details Date Type Department Care Team (Latest Contact Info) Description 08/23/2020 9:04 AM EST - 08/23/2020 11:59 PM [facility] Hospital Encounter XRay at [address] [place] [address] Cj Castro Jr., MD [facility] [place] [address] Pain in right wrist; Right hand pain [...] NEEDED 3 12/12/2017 fluticasone (FLONASE) 50 mcg/actuation [place], Suspension 1 spray by Each Nare route [...] 11:00 AM EDT Office Visit [place] [address] Josephine Espinosa MD [facility] [place] [address] documented as of this encounter Procedures Procedure [...] ? Electronically signed by: Dena Parker MD, [facility] ([phone]), at 08/23/2020 9:59 AM Narrative 08/23/2020 9:59 [...] Cj Castro Jr., MD IMG DX LORNA PUTNAMMONROE * XR Wrist 3 Views Right (08/23/2020 [...] ? Electronically signed by: Dena Parker MD, [facility] ([phone]), at 08/23/2020 9:59 AM Narrative 08/23/2020 9:59 [...] limb documented in this encounter Care Teams Spark Plug Tester Relationship Specialty Start Date End Date Dena Alfonso APRN [address] [place] [address] PCP - General Geriatric Medicine 10/12/16 documented as of this encounter
--- OUTSIDE RECORDS SUMMARY | 2024-07-23 02:05 | XMS_ITS | Encounter Summary ---
Author Organization [facility] Address [facility] [place] [address] Care Team Providers Care Underground Utility Locator Name Role Phone Dena Alfonso APRN Primary Care Provider [phone] Reason for Visit * Occupational Therapy (Routine) - Closed Specialty Diagnoses / Procedures Referred By Mariah tate Referred To Contact Orthopaedics Diagnoses Pain in right wrist Right hand pain clinic 08/23?? Cj Castro Jr., MD [facility] [place] [address] Sue Osorio OT [facility] PHYSICAL MEDICINE & [place] [address] Referral ID Status Reason Start Date Expiration Date V isits Requested Visits Authorized [id number] Closed Evaluate and Treat 08/23/2020 08/23/2021 100 100 Encounter Details Date Type Department Care Team (Latest Contact Info) Description 08/23/2020 3:00 PM EST Office [place] [address] Sue Osorio OT Pain in right wrist; [...] With Activity: 09/24 Treatment Today: Orthosis - Wkinm-Zbqu-Cmjffd Orthotic, Rigid, WO Jts, Custom Fit & Adj ([id number]) Educated patient in etiology and biomechanics as [...] 11:00 AM EDT Office [place] [address] Josephine Espinosa MD [facility] [place] [address] Scheduled Referrals Name Type Priority Associated Diagnoses Order Schedule Referral to Occupational Therapy Outpatient Referral Routine Pain in right wrist Right hand pain Ordered: 08/23/2020 documented as of this encounter Visit Diagnoses Diagnosis Pain in right wrist Pain in joint, forearm Arthritis of carpometacarpal (CMC) joint of right thumb documented in this encounter Care Teams Underground Utility Locator Relationship Specialty Start Date End Date Dena Alfonso APRN [address] [place] [address] PCP - General Geriatric Medicine 10/12/16 documented as of this encounter
--- OUTSIDE RECORDS SUMMARY | 2024-07-23 02:05 | XMS_ITS | Encounter Summary ---
Author Organization [facility] Address [facility] [place] [address] Care Team Providers Care Employee Communications Manager Name Role Phone KyMikey cornellDena JUNIOR ARCHITECT Primary Care Provider Encounter Details Date Type Department Care Team (Latest Contact Info) Description 10/16/2023 8:54 AM EDT - 10/16/2023 11:59 PM EDT Hospital Encounter Mammography at [facility] [place] [address] Dena Alfonso APRN [address] [place] [address] Mass of right breast, unspecified quadrant; Genetic [...] NEEDED 3 12/12/2017 fluticasone (FLONASE) 50 mcg/actuation [place], Suspension 1 spray by Each Nare route [...] 11:00 AM EDT Office Visit [place] [address] Josephine Espinosa MD [facility] [place] [address] documented as of this encounter Procedures Procedure Name Priority Date/Time Associated Diagnosis Comments MAMMO DIAGNOSTIC CAD AND JEAN RIGHT Routine 10/16/2023 9:46 AM EDT Mass of right breast, unspecified quadrant Genetic susceptibility to malignant neoplasm of breast Genetic susceptibility to other malignant neoplasm Personal history of malignant neoplasm of breast documented in this encounter Results * Mammo Diagnostic Cad and Jean Right (10/16/2023 9:46 AM EDT) WORKSTATION ID HOLOSuperSonic [id number] RAD Anatomical Region Laterality Modality Breast [...] have questions please contact the health care transition mgr that requested your imaging first. ? Electronically signed by: Britt Armstrong MD, [facility] ([phone]), at 10/16/2023 11:17 AM Narrative 10/16/2023 11:17 [...] breast documented in this encounter Care Teams Employee Communications Manager Relationship Specialty Start Date End Date Dena Alfonso APRN [address] [place] [address] PCP - General Geriatric Medicine 10/12/16 documented as of this encounter
--- OUTSIDE RECORDS SUMMARY | 2024-07-23 02:05 | XMS_ITS | Encounter Summary ---
Author Organization [facility] Address [facility] [place] [address] Care Team Providers Care Entry Driver Operator Name Role Phone KadenMikeyDenamerlin BARONE Primary [...] Office [place] [address] Josephine Espinosa MD [facility] [place] [address] documented as of this encounter Visit Diagnoses Not on filedocumented in this encounter Care Teams Entry Driver Operator Relationship Specialty Start Date End Date Dena Alfonso APRN [address] [place] [address] PCP - General Geriatric Medicine 10/12/16 documented as of this encounter
--- OUTSIDE RECORDS SUMMARY | 2024-07-23 02:06 | XMS_ITS | Encounter Summary ---
Author Organization [facility] Address [facility] [place] [address] Care Team Providers Care Medical Data Entry Clerk Name Role Phone Dena Alfonso APRN Primary Care Provider [phone]- [phone] Encounter Details Date Type Department Care Team (Latest Contact Info) Description 01/10/2018 12:02 PM EDT - 01/10/2018 12:57 PM EDT Hospital [place] [address] El Bernardo MD [facility] [address] Encounter for screening mammogram for breast cancer [...] NEEDED 3 12/12/2017 fluticasone (FLONASE) 50 mcg/actuation [place], Suspension 1 spray by Each Nare route daily as needed. cetirizine (ZYRTEC) 10 mg Tablet Take 10 mg by mouth daily as needed for Allergies. Reported on 10/12/2016 EPINEPHrine (EPIPEN) 0.3 mg/0.3 mL (1:1,000) Auto-Injector Inject 0.3 mLs into the muscle once as needed (difficulty breathing, throat swelling, loss of consciousness) for up to 1 dose. Call 911. 2 each 1 06/16/2014 predniSONE (DELTASONE) 20 mg Tablet TAKE ONE [...] 11:00 AM EDT Office [place] [address] Josephine Espinosa MD [facility] [place] [address] documented as of this encounter Procedures Procedure [...] cancer documented in this encounter Care Teams Medical Data Entry Clerk Relationship Specialty Start Date End Date Dena Alfonso APRN [address] [place] [address] PCP - General Geriatric Medicine 10/12/16 documented as of this encounter
--- OUTSIDE RECORDS SUMMARY | 2024-07-23 02:06 | XMS_ITS | Encounter Summary ---
Author Organization [facility] Address [facility] [place] [address] Care Team Providers Care Landscape Designer Name Role Phone Dena Alfonso APRN Primary Care Provider +1 [phone] Reason for Visit * Reason Comments Medication Refill Encounter Details Date Type Department Care Team (Late st Contact Info) Description 02/16/2019 Refill Dermatology at [place] [address] [facility] [place] [address] Miles Bowman MD [address] [facility], [place] [address] Social History Tobacco Use Types Packs/Day Years [...] 11:00 AM EDT Office Visit Gastroenterology at [facility] [place] [address] Josephine Espinosa MD [facility] [place] [address] documented as of this encounter Visit Diagnoses Not on filedocumented in this encounter Care Teams Landscape Designer Relationship Specialty Start Date End Date Dena Alfonso APRN [address] [place] [address] PCP - General Geriatric Medicine 10/12/16 documented as of this encounter
--- OUTSIDE RECORDS SUMMARY | 2024-07-23 02:06 | XMS_ITS | Encounter Summary ---
Author Organization [facility] Address [facility] [place] [address] Care Team Providers Care Bell Hole Digger Name Role Phone MonsterMikey Dobsonssica LIZABETH Primary Care Provider +1 [phone] Reason for Visit * Reason Onset Date Comments Medication Refill 05/27/2020 Encounter Details Date Type Department Care Team (Late st Contact Info) Description 05/27/2020 Refill Dermatology at [address] [phone] Sydni Castillo LPN Social History Tobacco Use [...] 11:00 AM EDT Office [place] [address] [facility] [place] [address] documented as of this encounter Visit Diagnoses Not on filedocumented in this encounter Care Teams Bell Hole Digger Relationship Specialty Start Date End Date Dena Alfonso APRN [address] [place] [address] PCP - General Geriatric Medicine 10/12/16 documented as of this encounter
--- OUTSIDE RECORDS SUMMARY | 2024-07-23 02:06 | XMS_ITS | Encounter Summary ---
Author Organization [facility] Address [facility] [place] [address] Care Team Providers Care Paid Search Analyst Name Role Phone Kaden Dena BARONE Primary Care Provider Encounter Details Date Type Department Care Team (Late st Contact Info) Description 02/23/2020 Orders Only Cardiology at [address] [phone] Jose Govea MD [facility] [place] [address] Social History Tobacco Use Types Packs/Day Years [...] 11:00 AM EDT Office [place] [address] Josephine Espinosa MD [facility] [place] [address] documented as of this encounter Visit Diagnoses Not on filedocumented in this encounter Care Teams Paid Search Analyst Relationship Specialty Start Date End Date Dena Alfonso APRN [address] [place] [address] PCP - General Geriatric Medicine 10/12/16 documented as of this encounter
--- OUTSIDE RECORDS SUMMARY | 2024-07-23 02:06 | XMS_ITS | Encounter Summary ---
Author Organization [facility] Address [facility] [place] [address] Care Team Providers Care Superintendent Board Mill Name Role Phone Dena Alfonso APRN Primary Care Provider Encounter Details Date Type Department Care Team (Late Contact Info) Description 12/25/2019 Orders Only Hematology/Oncology at [address] [address] El Bernardo MD [facility] [place] [address] Malignant neoplasm of left breast in female, [...] 11:00 AM EDT Office [place] [address] Josephine Espinosa MD [facility] [place] [address] documented as of this encounter Visit Diagnoses Diagnosis Malignant neoplasm of left breast in female, estrogen receptor negative, unspecified site of breast documented in this encounter Care Teams Superintendent Board Mill Relationship Specialty Start Date End Date Dena Alfonso APRN [address] [place] [address] PCP - General Geriatric Medicine 10/12/16 documented as of this encounter
--- OUTSIDE RECORDS SUMMARY | 2024-07-23 02:06 | XMS_ITS | Encounter Summary ---
Author Organization [facility] [place] [address] Care Team Providers Care Manager Hair Name Role Phone Dena Alfonso LIZABETH Primary Care Provider +1 [phone] Encounter Details Date Type Department Care Team (Late st Contact Info) Description 02/19/2019 9:00 AM EDT Office Visit Hematology/Oncology at [address] [phone] Carmen Govea APRN Malignant neoplasm of left breast in female, [...] in this encounter Progress Notes * Carmen Govea APRN - 02/19/2019 9:00 AM EDT Subjective: Patient [...] with heterologous chondroid differentiation Tumor Grade: High Snliga-Irngw-Szszvtwkbc Score: 9 Tubular Differentiation: 3 Mitotic Rate: [...] same BRCA1 alteration found in her mother ([id number]). Prophylactic BSO 04/2013. Path - Right and left fallopian tubes and ovaries (bilateral salpingo-oophorectomy): No evidence of malignancy. 3. 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 HPI: Ms. Hernándze is seen in follow up of cancer [...] repeat evaluation and CBE. Carmen Govea, MSN, HOTEL MANAGER, AOCNP documented in this encounter Plan of Treatment Upcoming Encounters Date Type Department Care Team (Late st Contact Info) Description 09/03/2024 11:00 AM EDT Office Visit [place] [address] Josephine Espinosa MD [facility] [place] [address] documented as of this encounter Visit Diagnoses Diagnosis Malignant neoplasm of left breast in female, estrogen receptor negative, unspecified site of breast documented in this encounter Care Teams Manager Hair Relationship Specialty Start Date End Date Dena Alfonso APRN [address] [place] [address] PCP - General Geriatric Medicine 10/12/16 documented as of this encounter
--- OUTSIDE RECORDS SUMMARY | 2024-07-23 02:06 | XMS_ITS | Encounter Summary ---
Author Organization [facility] [place] [address] Care Team Providers Care Chemist Water Purification Name Role Phone Dena Alfonso APRN Primary Care Provider [phone] Reason for Visit * Reason Comments Low Back Pain * Consultation (Routine) - Closed Specialty Diagnoses / Procedures Referred By Mariah tate Referred To Contact Orthopaedics Diagnoses Chronic low back pain/ ask about imaging Catherine Curry APRN [address] [place] [address] [facility] [place] [address] Referral ID Status Reason Start Date Expiration Date V isits Requested Visits Authorized [id number] Closed Consult, Test & Treat Connection [facility] 02/15/2017 02/15/2018 1 1 Encounter Details Date Type Department Care Team ([facility] st Contact Info) Description 03/11/2017 3:00 PM EDT Office [place] [address] Noé Ayala PA Degenerative scoliosis in adult patient Social History [...] She mentions doing physical therapy with Chidi payne, which apparently appears to involve some aspects [...] did show some interest in our functional druze program, she is not really able to [...] extent with her prior physical therapists at [facility] without much success. She discussed briefly [...] 11:00 AM EDT Office Visit [place] [address] Josephine Espinosa MD [facility] [place] [address] documented as of this encounter Visit Diagnoses Diagnosis Degenerative scoliosis in adult patient documented in this encounter Care Teams Chemist Water Purification Relationship Specialty Start Date End Date Dena Alfonso APRN [facility] [place] [place] [address] PCP - General Geriatric Medicine 10/12/16 documented as of this encounter
--- OUTSIDE RECORDS SUMMARY | 2024-07-23 02:06 | XMS_ITS | Encounter Summary ---
Author Organization [facility] Address [facility] [place] [address] Care Team Providers Care Marketing Traffic Coordinator Name Role Phone MonsterDena Dobson LIZABETH Primary Care Provider Reason for Visit * Reason Comments Medication Refill Encounter Details Date Type Department Care Team (Late st Contact Info) Description 12/17/2016 [place] [address] Queenie Warren MD Social History Tobacco Use Types Packs/Day [...] 11:00 AM EDT Office Visit [place] [address] Josephine Espinosa MD [facility] [place] [address] documented as of this encounter Visit Diagnoses Not on filedocumented in this encounter Care Teams Marketing Traffic Coordinator Relationship Specialty Start Date End Date Dena Alfonso APRN [address] [place] [address] PCP - General Geriatric Medicine 10/12/16 documented as of this encounter
--- OUTSIDE RECORDS SUMMARY | 2024-07-23 02:06 | XMS_ITS | Encounter Summary ---
Author Organization [facility] Address [facility] [place] [address] Care Team Providers Care Mechanical Maintenance Engineer Name Role Phone Dena Alfonso APRN Primary Care Provider [phone] Reason for Visit * Reason Comments Follow-up Skin Check * Consultation (Routine) - Specialty Diagnoses / Procedures Referred By Mariah tate Referred To Contact Dermatology Diagnoses Dermatitis, unspecified Eczema of hand Procedures Consult Araceli Carmona MD [address] [place] [address] Miles Bowman MD [address] [place] [address], [place] [address] Referral ID Status Reason Start Date Expiration Date V isits Requested Visits Authorized [id number] 12/04/2017 12/04/2018 1 1 Encounter Details Date Type Department Care Team (Late st Contact Info) Description 02/10/2018 4:00 PM EDT Office Visit Dermatology at [address] [address] Miles Bowman MD [address] [place] [address], [place] [address] Irritant hand dermatitis Social History Tobacco Use [...] 11:00 AM EDT Office [place] [address] Josephine Espinosa MD [facility] [place] [address] documented as of this encounter Visit Diagnoses Diagnosis Irritant hand dermatitis Contact dermatitis and other eczema, due to unspecified cause documented in this encounter Care Teams Mechanical Maintenance Engineer Relationship Specialty Start Date End Date Dena Alfonso APRN [address] [place] [address] PCP - General Geriatric Medicine 10/12/16 documented as of this encounter
--- OUTSIDE RECORDS SUMMARY | 2024-07-23 02:06 | XMS_ITS | Encounter Summary ---
Author Organization [facility] Address [facility] [place] [address] Care Team Providers Care Bridal Stylist Sales Consultant Name Role Phone Dena Alfonso APRN Primary Care Provider [phone] [phone] Reason for Visit * Reason Onset Date Comments Other 01/14/2018 echo results Encounter Details Date Type Department Care Team ([facility] st Contact Info) Description 01/14/2018 Telephone Cardiology at [address] [phone] Irena Caputo Other (echo results ) Social [...] patient today and relay these to her. [phone]. Thank you, Irena documented in this encounter Plan of Treatment Upcoming Encounters Date Type Department Care Team (Late st Contact Info) Description 09/03/2024 11:00 AM EDT Office [place] [address] Josephine Espinosa MD [facility] [place] [address] documented as of this encounter Visit Diagnoses Not on filedocumented in this encounter Care Teams Bridal Stylist Sales Consultant Relationship Specialty Start Date End Date Dena Alfonso APRN [address] [place] [address] PCP - General Geriatric Medicine 10/12/16 documented as of this encounter
--- OUTSIDE RECORDS SUMMARY | 2024-07-23 02:06 | XMS_ITS | Encounter Summary ---
Author Organization [facility] Address [facility] [place] [address] Care Team Providers Care Cafe Worker Name Role Phone MonsterMikey Dobsonmerlin BARONE Primary Care Provider Encounter Details Date Type Department Care Team (Late Contact Info) Description 01/13/2018 Orders Only Hematology/Oncology at [address] [address] El Bernardo MD [facility] [place] [address] Malignant neoplasm of female breast, unspecified estrogen [...] 11:00 AM EDT Office [place] [address] Josephine Espinosa MD [facility] [place] [address] documented as of this encounter Visit Diagnoses Diagnosis Malignant neoplasm of female breast, unspecified estrogen receptor status, unspecified laterality, unspecified site of breast documented in this encounter Care Teams Cafe Worker Relationship Specialty Start Date End Date Dena Alfonso APRN [address] [place] [address] PCP - General Geriatric Medicine 10/12/16 documented as of this encounter
--- OUTSIDE RECORDS SUMMARY | 2024-07-23 02:06 | XMS_ITS | Encounter Summary ---
Author Organization [facility] [place] [address] Care Team Providers Care Assistant Merchandise Manager Name Role Phone Dena Alfonso APRN Primary Care Provider [phone] [phone] Encounter Details Date Type Department Care Team (Late st Contact Info) Description 04/20/2019 Ancillary Procedure Radiology Library at [facility] [place] [phone] Cj Castro Jr., MD [facility] [place] [address] Social History Tobacco Use Types Packs/Day Years [...] 11:00 AM EDT Office Visit Gastroenterology at [facility] [place] [address] Josephine Espinosa MD [facility] [place] [address] documented as of this encounter Procedures Procedure Name Priority Date/Time Associated Diagnosis Comments FILM LIBRARY STORAGE ONLY DX UPPER EXTREMITY Routine 04/20/2019 12:00 AM EST documented in this encounter Results * Film Library- Storage Only DX Upper Extremity (04/20/2019 12:00 AM EST) Narrative RAD - 06/24/2020 8:09 AM EST This exam is auto-finalizing. It's purpose is for storage only. Cj Castro Jr., MD IMG FILM LI BRARY ORDERABLES Performing Organization Address City/State/[facility] Co de Phone Number [place], [place] documented in this encounter Visit Diagnoses Not on filedocumented in this encounter Care Teams Assistant Merchandise Manager Relationship Specialty Start Date End Date Dena Alfonso APRN [address] [place] [address] PCP - General Geriatric Medicine 10/12/16 documented as of this encounter
--- OUTSIDE RECORDS SUMMARY | 2024-07-23 02:06 | XMS_ITS | Encounter Summary ---
Author Organization [facility] Address [facility] [place] [address] Care Team Providers Care Biology Teacher Name Role Phone Dena Alfonso APRN Primary Care Provider Encounter Details Date Type Department Care Team (Late st Contact Info) Description 02/18/2020 Orders Only Hematology [place] [phone] El Bernardo MD [facility] [place] [address] History of left breast cancer; Breast cancer [...] 11:00 AM EDT Office Visit [place] [phone] Josephine Espinosa MD [facility] [place] [address] documented as of this encounter Visit Diagnoses Diagnosis History of left breast cancer Breast cancer screening by mammogram documented in this encounter Care Teams Biology Teacher Relationship Specialty Start Date End Date Dena Alfonso APRN [address] [place] [address] PCP - General Geriatric Medicine 10/12/16 documented as of this encounter
--- OUTSIDE RECORDS SUMMARY | 2024-07-23 02:06 | XMS_ITS | Encounter Summary ---
Author Organization [facility] Address [facility] [place] [address] Care Team Providers Care Rn Security Name Role Phone Dena Alfonso APRN Primary Care Provider [phone] Reason for Visit * Reason Comments Dermatitis right hand Encounter Details Date Type Department Care Team (Late st Contact Info) Description 01/03/2017 2:15 PM EDT Office Visit Dermatology at [address] [address] Miles Bowman MD [address] [place] [address], [place] [address] Irritant hand dermatitis Social History Tobacco Use [...] as of this encounter Progress Notes * Mlies Bowman MD - 01/03/2017 2:15 PM EDT [...] Stressed this repeatedly. Information given on the [employer] from whom she could order gloves. c. Recommend that she obtain CeraVe cream and use it as a regular emollient. d. For hand eczema begin fluocinonide 0.05% ointment, applying on a b.i.d. basis. [age]-five g will be called in with 5 refills to her [facility] in [facility]. 2. Mild hyperkeratosis, feet. a. Likely related to frequently wearing sandals and walking extensively during the summer months. It does not appear to be psoriasiform. b. Recommended urea 20% cream, applying on a daily b.i.d. basis to feet. Eighty g will be called in with 2 refills to her [facility]. c. Return to clinic here p.r.n. Typewritten handout for controlling hand eczema given. Cc: Dena Alfonso APRN documented in this encounter Plan of Treatment Upcoming Encounters Date Type Department Care Team (Late st Contact Info) Description 09/03/2024 11:00 AM EDT Office [place] [address] [facility] [place] [place] [address] documented as of this encounter Visit Diagnoses Diagnosis Irritant hand dermatitis Contact dermatitis and other eczema, due to unspecified cause documented in this encounter Care Teams Rn Security Relationship Specialty Start Date End Date Dena Alfonso APRN [address] [place] [address] PCP - General Geriatric Medicine 10/12/16 documented as of this encounter
--- OUTSIDE RECORDS SUMMARY | 2024-07-23 02:06 | XMS_ITS | Encounter Summary ---
Author Organization [facility] [place] [address] Care Team Providers Care Visual Merchandising Coordinator Name Role Phone Dena Alfonso APRN Primary Care Provider [phone] Encounter Details Date Type Department Care Team (Late st Contact Info) Description 10/24/2016 Orders Only [place] [phone] Kelsea Reeves MD [facility] [place] [address] Social History Tobacco Use Types Packs/Day Years [...] days. Patient has not been seen by wood lathe operator onc since 2014. Recommended she either return to see us or establish a local design assembler. documented in this encounter Plan of Treatment Upcoming Encounters Date Type Department Care Team (Late st Contact Info) Description 09/03/2024 11:00 AM EDT Office [place] [address] Josephine Espinosa MD [facility] [place] [address] documented as of this encounter Visit Diagnoses Not on filedocumented in this encounter Care Teams Visual Merchandising Coordinator Relationship Specialty Start Date End Date Dena Alfonso APRN [address] [place] [address] PCP - General Geriatric Medicine 10/12/16 documented as of this encounter
--- OUTSIDE RECORDS SUMMARY | 2024-07-23 02:06 | XMS_ITS | Encounter Summary ---
Author Organization [facility] Address [facility] [place] [address] Care Team Providers Care Hr Shared Services Consultant Name Role Phone Dena Alfonso APRN Primary Care Provider +1 [phone] Encounter Details Date Type Department Care Team (Late st Contact Info) Description 07/19/2020 Orders Only Cardiology at [address] [place] [address] Jose Govea MD [facility] [place] [address] Other cardiomyopathy; Chest pain, unspecified type; Dilatation [...] 11:00 AM EDT Office [place] [address] Josephine Espinosa MD [facility] [place] [address] documented as of this encounter Visit Diagnoses Diagnosis Other cardiomyopathy Chest pain, unspecified type Dilatation of aorta Aortic ectasia, unspecified site documented in this encounter Care Teams Hr Shared Services Consultant Relationship Specialty Start Date End Date Dena Alfonso APRN [address] [place] [address] PCP - General Geriatric Medicine 10/12/16 documented as of this encounter
--- OUTSIDE RECORDS SUMMARY | 2024-07-23 02:06 | XMS_ITS | Encounter Summary ---
Author Organization [facility] Address [facility] [place] [address] Care Team Providers Care Venture Capitalist Name Role Phone Dena Alfonso APRN Primary Care Provider [phone] Reason for Visit * Reason Comments Follow-up Skin Check Encounter Details Date Type Department Care Team (Late st Contact Info) Description 08/05/2018 2:00 PM EST Office Visit Dermatology at [address] [phone] Miles Bowman MD [address] [place] [address], [place] [address] Irritant hand dermatitis Social History Tobacco Use [...] 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 She wonders how long [...] vinyl gloves that she could get from [employer]. I gave her the [employer] information and ordering form 4. Continue with [...] 11:00 AM EDT Office Visit [place] [address] Josephine Espinosa MD [facility] [place] [address] documented as of this encounter Visit Diagnoses Diagnosis Irritant hand dermatitis Contact dermatitis and other eczema, due to unspecified cause documented in this encounter Care Teams Venture Capitalist Relationship Specialty Start Date End Date Dena Alfonso APRN [address] [place] [address] PCP - General Geriatric Medicine 10/12/16 documented as of this encounter
--- OUTSIDE RECORDS SUMMARY | 2024-07-23 02:06 | XMS_ITS | Encounter Summary ---
Author Organization [facility] Address [facility] [place] [address] Care Team Providers Care Talent Acquisition Coordinator Name Role Phone Dena Alfonso LIZABETH Primary Care Provider [phone] Reason for Referral * Diagnostic Test (Routine) - Closed Specialty Diagnoses / Procedures Referred By Mariah tate Referred To Contact Radiology Diagnoses Breast cancer, stage 2, left BRCA1 gene mutation positive Procedures MRI Breast wwo Contrast Bilat El Bernardo MD [facility] [address] [place] [address] Referral ID Status Reason Start Date Expiration Date V isits Requested Visits Authorized [id number] Closed Specialty Service Requested 07/22/2020 01/19/2022 1 1 Encounter Details Date Type Department Care Team (Late st Contact Info) Description 07/22/2020 1:30 PM EST TH Visit (TeleHealth) Hematology/Oncology at [address] [phone] El Bernardo MD [facility] [place] [address] Felicia Wagoner APRN [address] [place] [address] DR HEMATOLOGY ONCOLOGY [place], [place] [id number] Breast cancer, stage 2, left; BRCA1 gene [...] with heterologous chondroid differentiation Tumor Grade: High Eewmob-Hhmla-Anafaehzbx Score: 9 Tubular Differentiation: 3 Mitotic Rate: [...] same BRCA1 alteration found in her mother ([id number]). Prophylactic BSO 04/2013. Path - Right and left fallopian tubes and ovaries (bilateral salpingo-oophorectomy): No evidence of malignancy. 3. 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 COMPARISON STUDIES: Compared and/or correlated with [...] positive documented in this encounter Care Teams Talent Acquisition Coordinator Relationship Specialty Start Date End Date Dena Alfonso APRN [address] [facility] [place] [address] PCP - General Geriatric Medicine 10/12/16 documented as of this encounter
--- OUTSIDE RECORDS SUMMARY | 2024-07-23 02:06 | XMS_ITS | Encounter Summary ---
Author Organization [facility] Address [facility] [place] [address] Care Team Providers Care Cylinder Batcher Name Role Phone Dena Alfonso APRN Primary Care Provider [phone] Reason for Referral * Diagnostic Test (Routine) - Closed Specialty Diagnoses / Procedures Referred By Mariah tate Referred To Contact Cardiology Diagnoses Other cardiomyopathy Procedures Echocardiogram Transthoracic(Leb) Xuan Foote MD [facility] [place] [address] [facility] [place] [address] Referral ID Status Reason Start Date Expiration Date V isits Requested Visits Authorized [id number] Closed Specialty Service Requested 12/05/2017 12/05/2018 1 1 Encounter Details Date Type Department Care Team (Late st Contact Info) Description 12/05/2017 1:00 PM EDT Office Visit Cardiology at [address] [address] Xuan Foote MD [facility] [place] [address] Other cardiomyopathy Social History Tobacco Use Types [...] 11:00 AM EDT Office [place] [phone] Josephine Espinosa MD [facility] [place] [address] documented as of this encounter Results * ECHO COMPLETE (01/10/2018 3:25 PM EDT) EF 66 HEARTLAB SYSTEM Anatomical Region Laterality Modality Other 01/10/2018 Narrative 01/10/2018 4:35 PM EDT Procedure: ?Transthoracic Echocardiogram Patient: ?BRANDON Farooq ?(Age): 1960(57y) Med Rec#: ? [id number] ?Sex: ?F ? Site Loc: ? [facility] ?Ht / Wt: ??167(cm)/86(kg) Pt. Loc: ?Echo Lab ?BSA: ?1.95 Study Date: ?? 01/10/2018 ?Pt. Type: Outpatient Tape: ? Referring: XUAN FOOTE M Reading: Gary Rosa ([id number]) Product Management Consultant: Guadalupe Palm BA, [facility] Diagnosis: BP: ? 110/73 SUMMARY: 1. [...] E-wave Vmax ?0.6 ?m/sec ? MV deceleration [id number] ?msec ? MV A-wave Vmax ?0.6 ?m/sec [...] ? Mid-Inferior ?Normal ? Mid-Inferoseptal ?Normal ? [place]-Septal ? Normal ? [place]-Anterior ? Normal ? [place]-Lateral ?Normal ? [place]-Inferior ? Normal ? [place]-Tip ?Normal ? This report has been electronically signed by: Gary Rosa MD ? 01/10/2018 15:41:20 Images reviewed and interpretation verified [facility] Procedure Note Gary Rosa MD - 01/10/2018 Procedure: Transthoracic Echocardiogram Patient: BRANDON Farooq DOB(Age): 1960(57y) Med Rec#: [id number] Sex: F Site Loc: [facility] Ht / Wt: 167(cm)/86(kg) Pt. Loc: Echo Lab BSA: 1.95 Study Date: 01/10/2018 Pt. Type: Outpatient Tape: Referring: XUAN FOOTE M Reading: Gary Rosa ([id number]) Product Management Consultant: Guadalupe Palm BA [facility] Diagnosis: BP: 110/73 SUMMARY: 1. The [...] MV E-wave Vmax 0.6 m/sec MV deceleration [id number] msec MV A-wave Vmax 0.6 m/sec MV [...] Normal Mid-Posterolateral Normal Mid-Inferior Normal Mid-Inferoseptal Normal [place]-Septal Normal [place]-Anterior Normal [place]-Lateral Normal [place]-Inferior Normal [place]-Tip Normal This report has been electronically signed by: Gary Rosa MD 01/10/2018 15:41:20 Images reviewed and interpretation verified [facility] Xuan Foote MD ECHO ORDERABLES documented in this encounter Visit Diagnoses Diagnosis Other cardiomyopathy Other cardiomyopathy documented in this encounter Care Teams Cylinder Batcher Relationship Specialty Start Date End Date Dena Alfonso APRN [address] [place] [address] PCP - General Geriatric Medicine 10/12/16 documented as of this encounter
--- OUTSIDE RECORDS SUMMARY | 2024-07-23 02:06 | XMS_ITS | Encounter Summary ---
Author Organization [facility] Address [facility] [place] [address] Care Team Providers Care Plastic Surgeon Name Role Phone KadenMikeyDenamerlin BARONE Primary Care Provider [phone] Encounter Details Date Type Department Care Team (Late st Contact Info) Description 02/10/2018 Refill Dermatology at [address] [address] Avril Schultz LPN Social History Tobacco Use [...] 11:00 AM EDT Office [place] [address] Josephine Espinosa MD [facility] [place] [address] documented as of this encounter Visit Diagnoses Not on filedocumented in this encounter Care Teams Plastic Surgeon Relationship Specialty Start Date End Date Dena Alfonso APRN [address] [place] [address] PCP - General Geriatric Medicine 10/12/16 documented as of this encounter
--- OUTSIDE RECORDS SUMMARY | 2024-07-23 02:06 | XMS_ITS | Encounter Summary ---
Author Organization [facility] [place] [address] Care Team Providers Care Sleeper Cutter Name Role Phone Dena Alfonso APRN Primary Care Provider [phone] Encounter Details Date Type Department Care Team (Late st Contact Info) Description 08/19/2019 Ancillary Procedure Radiology Library [place] [phone] Cj Castro Jr., MD [facility] [place] [address] Social History Tobacco Use Types Packs/Day Years [...] 11:00 AM EDT Office Visit Gastroenterology at [place] [phone] Josephine Espinosa MD [facility] [place] [address] documented as of this encounter Procedures Procedure Name Priority Date/Time Associated Diagnosis Comments FILM LIBRARY STORAGE ONLY DX WRIST Routine 08/19/2019 12:00 AM EST documented in this encounter Results * Film Library- Storage Only DX Wrist (08/19/2019 12:00 AM EST) Narrative RAD - 06/24/2020 2:54 AM EST This exam is auto-finalizing. It's purpose is for storage only. Cj Castro Jr., MD IMG FILM LI BRARY ORDERABLES Performing Organization Address City/State/[facility] Co de Phone Number [place], [place] documented in this encounter Visit Diagnoses Not on filedocumented in this encounter Care Teams Sleeper Cutter Relationship Specialty Start Date End Date Dena Alofnso APRN [address] [place] [address] PCP - General Geriatric Medicine 10/12/16 documented as of this encounter
--- OUTSIDE RECORDS SUMMARY | 2024-07-23 02:06 | XMS_ITS | Encounter Summary ---
Author Organization [facility] Address [facility] [place] [address] Care Team Providers Care Mandrel Press Hand Name Role Phone Dena Alfonso APRN Primary Care Provider [phone] Reason for Referral * Diagnostic Test (Routine) - Closed Specialty Diagnoses / Procedures Referred By Contac t Referred To Contact Cardiology Diagnoses Other cardiomyopathy Procedures Echocardiogram Transthoracic([facility] or [facility]) Jose Govea MD [facility] [place] [address] [facility] [place] [address] Referral ID Status Reason Start Date Expiration Date V isits Requested Visits Authorized [id number] Closed Specialty Service Requested 04/06/2020 04/06/2021 1 1 Encounter Details Date Type Department Care Team (Latest Contact Info) Description 04/06/2020 3:20 PM EDT TH Visit (TeleHealth) Cardiology at [address] [address] Jose Govea MD [facility] [place] [address] Other cardiomyopathy Social History Tobacco Use Types [...] file Gets together: Not on file Attends hinduism service: Not on file Active member of [...] 11:00 AM EDT Office [place] [address] Josephine Espinosa MD [facility] [place] [address] documented as of this encounter Results * ECHO COMPLETE (07/14/2020 1:09 PM EST) EF 66 HEARTLAB SYSTEM Anatomical Region Laterality Modality Other 07/14/2020 Narrative 07/14/2020 1:54 PM EST Procedure: ?Transthoracic Echocardiogram Patient: ?BRANDON Farooq ?(Age): 1960(59y) Med Rec#: ? [id number] ?Sex: ?F ? Site Loc: ? [facility] [place] ?Ht / Wt: ??165(cm)/86(kg) Pt. Loc: ?Echo Lab ?BSA: ?1.93 Study Date: ?? 07/14/2020 ?Pt. Type: Outpatient Tape: ? [facility] Reading: David Kendrick ??([id number]) Kerrick Kleaner Operator: Saloni Valdivia Diagnosis: *Other cardiomyopathies (I42.8) BP: [...] Vmax ?0.54 ? m/sec ? MV deceleration lypp062.06 ? msec ? MV A-wave Vmax ?0.68 [...] ? Mid-Inferior ?Normal ? Mid-Inferoseptal ?Normal ? [place]-Septal ? Normal ? [place]-Anterior ? Normal ? [place]-Lateral ?Normal ? [place]-Inferior ? Normal ? [place]-Tip ?Normal ? This report has been electronically signed by: David Kendrick MD ? 07/14/2020 13:53:16 Images reviewed and interpretation verified [facility] Procedure Note David Kendrick MD - 07/14/2020 Procedure: Transthoracic Echocardiogram Patient: BRANDON HERRERA(Age): 1960(59y) Med Rec#: [id number] Sex: F Site Loc: [facility] Ht / Wt: 165(cm)/86(kg) Pt. Loc: Echo Lab BSA: 1.93 Study Date: 07/14/2020 Pt. Type: Outpatient Tape: Referring: [facility] Reading: David Kendrick ([id number]) Kerrick Kleaner Operator: Saloni Valdivia Diagnosis: *Other cardiomyopathies (I42.8) BP: [...] MV E-wave Vmax 0.54 m/sec MV deceleration [id number] msec MV A-wave Vmax 0.68 m/sec MV [...] Normal Mid-Posterolateral Normal Mid-Inferior Normal Mid-Inferoseptal Normal [place]-Septal Normal [place]-Anterior Normal [place]-Lateral Normal [place]-Inferior Normal [place]-Tip Normal This report has been electronically signed by: David Kendrick MD 07/14/2020 13:53:16 Images reviewed and interpretation verified [facility] Jose Govea MD ECHO ORDERABLES documented in this encounter Visit Diagnoses Diagnosis Other cardiomyopathy Other cardiomyopathy documented in this encounter Care Teams Mandrel Press Hand Relationship Specialty Start Date End Date Dena Aflonso APRN [address] [facility] [address] PCP - General Geriatric Medicine 10/12/16 documented as of this encounter
--- OUTSIDE RECORDS SUMMARY | 2024-07-23 02:06 | XMS_ITS | Encounter Summary ---
Author Organization [facility] Address [facility] [place] [address] Care Team Providers Care Computer Aide Name Role Phone KadenMikeyDenamerlin BARONE Primary Care Provider Encounter Details Date Type Department Care Team (Late Contact Info) Description 04/11/2020 Telephone Hematology/Oncology at [address] [phone] Chuck Zamorano Social History Tobacco Use Types [...] 11:00 AM EDT Office [place] [address] Josephine Espinosa MD [facility] [place] [address] documented as of this encounter Visit Diagnoses Not on filedocumented in this encounter Care Teams Computer Aide Relationship Specialty Start Date End Date Dena Alfonso APRN [address] [place] [address] PCP - General Geriatric Medicine 10/12/16 documented as of this encounter
--- OUTSIDE RECORDS SUMMARY | 2024-07-23 02:06 | XMS_ITS | Encounter Summary ---
Author Organization [facility] Address [facility] [place] [address] Care Team Providers Care Tick Eradicator Name Role Phone Dena Alfonso APRN Primary Care Provider [phone] Encounter Details Date Type Department Care Team (Late st Contact Info) Description 10/24/2016 External Results XRay at [address] [place] [phone] Provider, Scanning Social History Tobacco Use Types [...] 11:00 AM EDT Office Visit [place] [phone] Josephine Espinosa MD [facility] [place] [address] documented as of this encounter Procedures Procedure Name Priority Date/Time Associated Diagnosis Comments MAMMOGRAM SCAN Routine 10/23/2016 documented in this encounter Results * Scan Doc: Mammogram (10/23/2016) Anatomical Region Laterality Modality Other Scanning Provider MEDIA MGR SCAN EXT O RDR/RSLT documented in this encounter Visit Diagnoses Not on filedocumented in this encounter Care Teams Tick Eradicator Relationship Specialty Start Date End Date Dena Alfonso APRN [address] [place] [address] PCP - General Geriatric Medicine 10/12/16 documented as of this encounter
--- OUTSIDE RECORDS SUMMARY | 2024-07-23 02:06 | XMS_ITS | Encounter Summary ---
Author Organization [facility] Address [facility] [place] [address] Care Team Providers Care Motor Operator Name Role Phone Dena Alfonso APRN Primary Care Provider [phone] Reason for Visit * Reason Comments Follow-up Encounter Details Date Type Department Care Team (Late st Contact Info) Description 09/29/2018 3:45 PM EDT Office Visit Dermatology at [address] [phone] Miles Bowman MD [address] [place] [address], [facility] [place] [address] Seborrheic keratosis Social History Tobacco Use Types [...] as of this encounter Progress Notes * Miels Bowman MD - 09/29/2018 3:45 PM EDT [...] 11:00 AM EDT Office [place] [address] Josephine Espinosa MD [facility] [place] [address] documented as of this encounter Visit Diagnoses Diagnosis Seborrheic keratosis Other seborrheic keratosis documented in this encounter Care Teams Motor Operator Relationship Specialty Start Date End Date Dena Alfonso APRN [facility] [place] [address] PCP - General Geriatric Medicine 10/12/16 documented as of this encounter
--- OUTSIDE RECORDS SUMMARY | 2024-07-23 02:06 | XMS_ITS | Encounter Summary ---
Author Organization [facility] Address [facility] [place] [address] Care Team Providers Care Life Science Technical Officer Name Role Phone Dena Alfonso APRN Primary Care Provider [phone] Encounter Details Date Type Department Care Team (Late st Contact Info) Description 04/08/2020 1:00 PM EDT Office Visit Hematology/Oncology at [address] [phone] El Bernardo MD [facility] [place] [address] Felicia Wagoner APRN [address] [place] [address] DR HEMATOLOGY ONCOLOGY [place], [place] [id number] Breast cancer, stage 2, left; 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 Prophylactic BSO 04/2013. Path - Right and left fallopian tubes and ovaries (bilateral salpingo-oophorectomy): No evidence of malignancy. 3. PATIENT EDUCATOR History: The patient is G4, P3 with [...] at times. She used to takean acid dmitry but doesn't now because she doesn't like [...] reschedule the mammogram to be done at [facility] and f/u with her after by phone. [...] to do testing yet. She lives in [place]. I asked her to have her daughter discuss testing and screening with her provider.Her sister was tested and was negative. Her brother has elected not to be tested. documented in this encounter Plan of Treatment Upcoming Encounters Date Type Department Care Team (Late st Contact Info) Description 09/03/2024 11:00 AM EDT Office Visit [place] [address] Josephine Espinosa MD [facility] [place] [address] documented as of this encounter Results * [...] report, please contact the number below. ? 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
--- OUTSIDE RECORDS SUMMARY | 2024-07-23 02:06 | XMS_ITS | Encounter Summary ---
Author Organization [facility] [place] [address] Care Team Providers Care Biological Lab Technician Name Role Phone Dena Alfonso APRN Primary Care Provider [phone] Reason for Referral * Physical Therapy (Routine) - Closed Specialty Diagnoses / Procedures Referred By Contac t Referred To Contact Physical Therapy Diagnoses Vaginal prolapse Janice Jacques APRN [facility] DR OBSTETRICS & [place] [address] Marianela Bosch, PT [address] [place] [address] Referral ID Status Reason Start Date Expiration Date V isits Requested Visits Authorized [id number] Closed Evaluate and Treat 07/02/2017 12/29/2017 12 12 Reason for Visit * Reason Comments Establish Care Uterine Prolapse * Consultation (Routine) - Closed Specialty Diagnoses / Procedures Referred By Contac t Referred To Contact Obstetrics and Gynecology Diagnoses Female genital prolapse, unspecified Dena Alfonso APRN [address] [place] [address] [facility] Sludge Filtration Attendant [address] [place] [address] Referral ID Status Reason Start Date Expiration Date V isits Requested Visits Authorized [id number] Closed Consult, Test & Treat Connection Center 06/24/2017 06/24/2018 1 1 Encounter Details Date Type Department Care Team (Late st Contact Info) Description 07/02/2017 3:15 PM EST Office Visit Obstetrics [place] [address] Janice Jacques, TIRE FABRICATOR [facility] OBSTETRICS [facility] [place] [address] Vaginal prolapse; Fitting and adjustment of pessary [...] this encounter Progress Notes * Janice Jacques, TIRE FABRICATOR - 07/02/2017 3:15 PM EST Rebeca Hernández [id number] Dena Alfonso, LIZABETH 07/02/2017 Gynecologic Visit Patient [...] pessary refitting. Shewas initially seen by a pharmacognosy teacher in [facility]. She was offered a pessary or surgery. [...] in PT- [facility] documented in this encounter Plan of Treatment Upcoming Encounters Date Type Department Care Team (Late st Contact Info) Description 09/03/2024 11:00 AM EDT Office Visit [place] [phone] Josephine Espinosa MD [facility] [place] [address] Scheduled Referrals Name Type Priority Associated Diagnoses [...] device documented in this encounter Care Teams Biological Lab Technician Relationship Specialty Start Date End Date Dena Alfonso APRN [address] [place] [address] PCP - General Geriatric Medicine 10/12/16 documented as of this encounter
--- OUTSIDE RECORDS SUMMARY | 2024-07-23 02:06 | XMS_ITS | Encounter Summary ---
Author Organization [facility] [place] [address] Care Team Providers Care Helpdesk Analyst Name Role Phone Dena Alfonso APRN Primary Care Provider [phone] Encounter Details Date Type Department Care Team (Late st Contact Info) Description 07/26/2020 Orders [place] [phone] Cj Castro Jr., MD [facility] DR [place] [address] Pain in right wrist; Right hand pain [...] 11:00 AM EDT Office Visit [place] [address] Josephine Espinosa MD [facility] [place] [address] documented as of this encounter Results * [...] number below. Cj Castro Jr., MD IMG CARRIE WANG documented in this encounter Visit Diagnoses Diagnosis Pain in right wrist Pain in joint, forearm Right hand pain Pain in limb Pain in right wrist Pain in joint, forearm Right hand pain Pain in limb documented in this encounter Care Teams Helpdesk Analyst Relationship Specialty Start Date End Date Dena Alfonso APRN [address] [place] [address] PCP - General Geriatric Medicine 10/12/16 documented as of this encounter
--- OUTSIDE RECORDS SUMMARY | 2024-07-23 02:06 | XMS_ITS | Encounter Summary ---
Author Organization [facility] Address [facility] [place] [address] Care Team Providers Care Chopped Strand Operator Name Role Phone Dena Alfonso APRN Primary Care Provider +1 [phone] Encounter Details Date Type Department Care Team (Latest Contact Info) Description 10/23/2016 - 10/23/2016 11:59 PM EDT Hospital Encounter Radiology Library at [facility] [place] [address] Arnol Meehan MD Screening mammogram, encounter for Discharge Disposition: Home [...] (2,000 unit) Capsule Take by mouth daily. cetirizine (ZYRTEC) 10 mg Tablet Take 10 mg by mouth daily as needed for Allergies. Reported on 10/12/2016 EPINEPHrine (EPIPEN) 0.3 mg/0.3 mL (1:1,000) Auto-Injector Inject 0.3 mLs into the muscle once as needed (difficulty breathing, throat swelling, loss of consciousness) for up to 1 dose. Call 911. 2 each 1 06/16/2014 fluticasone (FLONASE) 50 mcg/actuation [place], Suspension 1 spray 2 times daily as needed for Rhinitis. Reported on 10/12/2016 03/11/2017 estradiol (VAGIFEM) 10 mcg TabletIndications:Kelsie pause Place [...] 11:00 AM EDT Office Visit [place] [address] Josephine Espinosa MD [facility] [place] [address] documented as of this encounter Procedures Procedure Name Priority Date/Time Associated Diagnosis Comments FILM LIBRARY STORAGE ONLY MAMMO Routine 10/23/2016 12:00 AM EDT Screening mammogram, encounter for documented in this encounter Results * Film Library- Storage Only Mammo (10/23/2016 12:00 AM EDT) Narrative [facility] - 10/24/2016 10:08 AM EDT This exam is for storage only and is auto-finalizing. Arnol Meehan MD G FILM LIBRARY ORD ERABLES [place], [place] documented in this encounter Visit Diagnoses Diagnosis Screening mammogram, encounter for documented in this encounter Care Teams Chopped Strand Operator Relationship Specialty Start Date End Date Dena Alfonso APRN [address] [place] [address] PCP - General Geriatric Medicine 10/12/16 documented as of this encounter
--- OUTSIDE RECORDS SUMMARY | 2024-07-23 02:06 | XMS_ITS | Encounter Summary ---
Author Organization [facility] Address [facility] [place] [address] Care Team Providers Care Edge Grinder Machine Name Role Phone KadenMikeyDena LIZABETH Primary Care Provider Encounter Details Date Type Department Care Team (Late Contact Info) Description 12/25/2019 Orders Only Hematology [place] [phone] El Bernardo MD [facility] [place] [address] Social History Tobacco Use Types Packs/Day Years [...] 11:00 AM EDT Office Visit [place] [phone] Josephine Espinosa MD [facility] [address] documented as of this encounter Visit Diagnoses Not on filedocumented in this encounter Care Teams Edge Grinder Machine Relationship Specialty Start Date End Date Dena Alfonso APRN [address] [place] [address] PCP - General Geriatric Medicine 10/12/16 documented as of this encounter
--- OUTSIDE RECORDS SUMMARY | 2024-07-23 02:06 | XMS_ITS | Encounter Summary ---
Author Organization [facility] Address [facility] [place] [address] Care Team Providers Care Installment Account Checker Name Role Phone Dena Alfonso APRN Primary Care Provider [phone] Reason for Visit * Reason Comments Medication Refill Encounter Details Date Type Department Care Team (Late st Contact Info) Description 09/07/2019 Refill Dermatology at [place] [address] [facility] [place] [address] Miles Bowman MD [address] [facility] [address] Social History Tobacco Use Types Packs/Day Years [...] 11:00 AM EDT Office Visit Gastroenterology at [facility] [place] [address] Josepihne Espinosa MD [facility] [place] [address] documented as of this encounter Visit Diagnoses Not on filedocumented in this encounter Care Teams Installment Account Checker Relationship Specialty Start Date End Date Dena Alfonso APRN [address] [place] [address] PCP - General Geriatric Medicine 10/12/16 documented as of this encounter
--- OUTSIDE RECORDS SUMMARY | 2024-07-23 02:06 | XMS_ITS | Encounter Summary ---
Author Organization [facility] Address [facility] [place] [address] Care Team Providers Care Manager Knowledge Name Role Phone Dena Alfonso APRN Primary Care Provider Encounter Details Date Type Department Care Team (Late st Contact Info) Description 06/03/2020 1:00 PM EST TH Visit (TeleHealth) Hematology/Oncology at [address] [phone] El Bernardo MD [facility] [place] [address] Felicia Wagoner APRN [address] [place] [address] DR HEMATOLOGY ONCOLOGY [place], [place] [address] Malignant neoplasm of left breast in female, [...] as a metaplastic carcinoma with chondroid differentiation; ER/AK and HER-2 yeyo negative. She is BRCA 1 positive. She completed adjuvant chemotherapy with AC and radiation in 11/20. The phone visit was scheduled today to review results of a planned mammogram and breast MRI. Rebeca tells me those tests and an echocardiogram have been rescheduled for 07/14/20 at [facility] in [place]. This visit will be rescheduled as a phone visit with Dr. Bernardo on 07/22/20. documented in this encounter Plan of Treatment Upcoming Encounters Date Type Department Care Team (Late st Contact Info) Description 09/03/2024 11:00 AM EDT Office Visit [place] [address] Josephine Espinosa MD [facility] [place] [address] documented as of this encounter Visit Diagnoses Diagnosis Malignant neoplasm of left breast in female, estrogen receptor negative, unspecified site of breast documented in this encounter Care Teams Manager Knowledge Relationship Specialty Start Date End Date Dena Alfonso APRN [address] [place] [address] PCP - General Geriatric Medicine 10/12/16 documented as of this encounter
--- OUTSIDE RECORDS SUMMARY | 2024-07-23 02:06 | XMS_ITS | Encounter Summary ---
Author Organization [facility] Address [facility] [place] [address] Care Team Providers Care Manager Library Name Role Phone KadenMikeyDena LICENSED ACUPUNCTURIST Primary Care Provider Encounter Details Date Type Department Care Team (Latest Contact Info) Description 02/05/2019 2:45 PM EDT - 02/05/2019 11:59 PM EDT Hospital Encounter Mammography/DXA at [facility] [place] [address] Dena Alfonso APRN [address] [place] [address] Encounter for screening mammogram for breast cancer [...] NEEDED 3 12/12/2017 fluticasone (FLONASE) 50 mcg/actuation [place], Suspension 1 spray by Each Nare route daily as needed. cetirizine (ZYRTEC) 10 mg Tablet Take 10 mg by mouth daily as needed for Allergies. Reported on 10/12/2016 EPINEPHrine (EPIPEN) 0.3 mg/0.3 mL (1:1,000) Auto-Injector Inject 0.3 mLs into the muscle once as needed (difficulty breathing, throat swelling, loss of consciousness) for up to 1 dose. Call 911. 2 each 1 06/16/2014 meloxicam (MOBIC) 15 mg Tablet TAKE ONE TABLET BY MOUTH EVERY DAY NEEDED FOR PAIN 0 08/04/2018 03/29/2021 predniSONE (DELTASONE) 20 mg Tablet TAKE ONE TABLET BY MOUTH EVERY DAY 0 10/29/2017 07/21/2020 betamethasone dipropionate (DIPROLENE) 0.05 % Ointment Apply to hand eczema 1-2 times daily, prn 45 g 3 02/10/2018 09/19/2020 estradiol (VAGIFEM) 10 mcg TabletIndications:[place] use Place 1 tablet vaginally twice a week. 8 tablet 11 04/28/2015 08/23/2020 documented as of this encounter Plan of Treatment Upcoming Encounters Date Type Department Care Team (Late st Contact Info) Description 09/03/2024 11:00 AM EDT Office [place] [address] Josephine Espinosa MD [facility] DR [place] [address] documented as of this encounter Procedures Procedure [...] below. ? Electronically signed by: Deisy Vasquez [facility] ([phone]), at 02/05/2019 3:52 PM Dena Alfonso APRN IMG MAMMO ORDERABLE S documented in this encounter Visit Diagnoses Diagnosis Encounter for screening mammogram for breast cancer documented in this encounter Care Teams Manager Library Relationship Specialty Start Date End Date Dena Alfonso APRN [address] [place] [address] PCP - General Geriatric Medicine 10/12/16 documented as of this encounter
--- OUTSIDE RECORDS SUMMARY | 2024-07-23 02:06 | XMS_ITS | Encounter Summary ---
Author Organization [facility] Address [facility] [place] [address] Care Team Providers Care Street Railway Line Installer Name Role Phone Dena Alfonso APRN Primary Care Provider [phone] Encounter Details Date Type Department Care Team (Late st Contact Info) Description 05/27/2020 9:00 AM EST Office Visit Dermatology at [address] [address] Miles Bowman MD [address] [place] [place] [address], [facility] [place] [address] Seborrheic keratosis; Irritant hand dermatitis Social History [...] 11:00 AM EDT Office Visit [place] [address] Josephine Espinosa MD [facility] [place] [address] documented as of this encounter Visit Diagnoses Diagnosis Seborrheic keratosis Other seborrheic keratosis Irritant hand dermatitis Contact dermatitis and other eczema, due to unspecified cause documented in this encounter Care Teams Street Railway Line Installer Relationship Specialty Start Date End Date Dena Alfonso APRN [facility] [place] [address] PCP - General Geriatric Medicine 10/12/16 documented as of this encounter
--- OUTSIDE RECORDS SUMMARY | 2024-07-23 02:06 | XMS_ITS | Encounter Summary ---
Author Organization [facility] [place] [address] Care Team Providers Care Diet Supervisor Name Role Phone Dena Alfonso APRN Primary Care Provider [phone] Encounter Details Date Type Department Care Team (Late st Contact Info) Description 04/22/2019 Ancillary Procedure Radiology Library at [facility] [place] [phone] Cj Castro Jr., MD [facility] [place] [address] Social History Tobacco Use Types Packs/Day Years [...] 11:00 AM EDT Office Visit Gastroenterology at [facility] [place] [address] Josephine Espinosa MD [facility] [place] [address] documented as of this encounter Procedures Procedure Name Priority Date/Time Associated Diagnosis Comments FILM LIBRARY STORAGE ONLY DX WRIST Routine 04/22/2019 12:00 AM EST documented in this encounter Results * Film Library- Storage Only DX Wrist (04/22/2019 12:00 AM EST) Narrative RAD - 06/24/2020 2:56 AM EST This exam is auto-finalizing. It's purpose is for storage only. Cj Castro Jr., MD IMG FILM LI BRARY ORDERABLES Performing Organization Address City/State/[facility] Co de Phone Number [place], [place] documented in this encounter Visit Diagnoses Not on filedocumented in this encounter Care Teams Diet Supervisor Relationship Specialty Start Date End Date Dena Alfonso APRN [address] [place] [address] PCP - General Geriatric Medicine 10/12/16 documented as of this encounter
--- OUTSIDE RECORDS SUMMARY | 2024-07-23 02:06 | XMS_ITS | Encounter Summary ---
Author Organization [facility] Address [facility] [place] [address] Care Team Providers Care Soft Mud Molder Name Role Phone Dena Alfosno APRN Primary Care Provider [phone] Reason for Referral * Diagnostic Test (Routine) - Closed Specialty Diagnoses / Procedures Referred By Contac t Referred To Contact Cardiology Diagnoses Other cardiomyopathy Procedures Echocardiogram Transthoracic([facility] or NL) Jose Govea MD [facility] [place] [address] [facility] [place] [address] Referral ID Status Reason Start Date Expiration Date V isits Requested Visits Authorized [id number] Closed Specialty Service Requested 04/06/2020 04/06/2021 1 1 Reason for Visit * Diagnostic Test (Routine) - Closed Specialty Diagnoses / Procedures Referred By Contac t Referred To Contact Cardiology Diagnoses Other cardiomyopathy Procedures Echocardiogram Transthoracic([facility] or NL) Jose Govea MD [facility] [place] [address] [facility] [place] [address] Referral ID Status Reason Start Date Expiration Date V isits Requested Visits Authorized [id number] Closed Specialty Service Requested 04/06/2020 04/06/2021 1 1 Encounter Details Date Type Department Care Team (Latest Contact Info) Description 07/14/2020 11:29 AM EST - 07/14/2020 11:59 PM EST Hospital Encounter Non-Invasive Cardiology Lab [facility] [place] [address] Jsoe Govea MD [facility] [place] [place] [address] Other cardiomyopathy Discharge Disposition: Home Social History [...] NEEDED 3 12/12/2017 fluticasone (FLONASE) 50 mcg/actuation [place], Suspension 1 spray by Each Nare route [...] 11:00 AM EDT Office Visit [place] [address] Josephine Espinosa MD [facility] [place] [address] documented as of this encounter Procedures Procedure Name Priority Date/Time Associated Diagnosis Comments ECHO COMPLETE Routine 07/14/2020 1:09 PM EST Other cardiomyopathy documented in this encounter Results * ECHO COMPLETE (07/14/2020 1:09 PM EST) EF 66 HEARTLAB SYSTEM Anatomical Region Laterality Modality Other 07/14/2020 Narrative 07/14/2020 1:54 PM EST Procedure: ?Transthoracic Echocardiogram Patient: ?BRANDON CRAWFORD A ?(Age): 1960(59y) Med Rec#: ? [id number] ?Sex: ?F ? Site Loc: ? [facility] ?Ht / Wt: ??165(cm)/86(kg) Pt. Loc: ?Echo Lab ?BSA: ?1.93 Study Date: ?? 07/14/2020 ?Pt. Type: Outpatient Tape: ? Referring: LIVAN Reading: David Kendrick ??([id number]) Tractor Sweeper Driver: Saloni Valdivia Diagnosis: *Other cardiomyopathies (I42.8) BP: [...] Vmax ?0.54 ? m/sec ? MV deceleration [id number] ? msec ? MV A-wave Vmax ?0.68 [...] ? Mid-Inferior ?Normal ? Mid-Inferoseptal ?Normal ? [place]-Septal ? Normal ? [place]-Anterior ? Normal ? [place]-Lateral ?Normal ? [place]-Inferior ? Normal ? [place]-Tip ?Normal ? This report has been electronically signed by: David Kendrick MD ? 07/14/2020 13:53:16 Images reviewed and interpretation verified [facility] Cardiac Ultrasound Laboratory Procedure Note David Kendrick MD - 07/14/2020 Procedure: Transthoracic Echocardiogram Patient: BRANDON HERRERA(Age): 1960(59y) Med Rec#: [id number] Sex: F Site Loc: [facility] Ht / Wt: 165(cm)/86(kg) Pt. Loc: Echo Lab BSA: 1.93 Study Date: 07/14/2020 Pt. Type: Outpatient Tape: Referring: [facility] Reading: David Kendrick ([id number]) Tractor Sweeper Driver: Saloni Valdivia Diagnosis: *Other cardiomyopathies (I42.8) BP: [...] MV E-wave Vmax 0.54 m/sec MV deceleration pmrq706.06 msec MV A-wave Vmax 0.68 m/sec MV [...] Normal Mid-Posterolateral Normal Mid-Inferior Normal Mid-Inferoseptal Normal [place]-Septal Normal [place]-Anterior Normal [place]-Lateral Normal [place]-Inferior Normal [place]-Tip Normal This report has been electronically signed by: David Kendrick MD 07/14/2020 13:53:16 Images reviewed and interpretation verified [facility] Cardiac Ultrasound Laboratory Jose Govea MD ECHO ORDERABLES documented in this encounter Visit Diagnoses Diagnosis Other cardiomyopathy documented in this encounter Care Teams Soft Mud Molder Relationship Specialty Start Date End Date Dena Alfonso APRN [address] [place] [address] PCP - General Geriatric Medicine 4/28/17 documented as of this encounter
--- OUTSIDE RECORDS SUMMARY | 2024-07-23 02:06 | XMS_ITS | Encounter Summary ---
Author Organization [facility] [place] [address] Care Team Providers Care Manager Of Quality Name Role Phone Dena Alfonso APRN Primary Care Provider [phone] Encounter Details Date Type Department Care Team (Late st Contact Info) Description 05/06/2019 Ancillary Procedure Radiology Library at [facility] [place] [address] Cj Castro Jr., MD [facility] [place] [address] Social History Tobacco Use Types Packs/Day Years [...] 11:00 AM EDT Office Visit Gastroenterology at [facility] [place] [address] Josephine Espinosa MD [facility] [address] documented as of this encounter Procedures Procedure Name Priority Date/Time Associated Diagnosis Comments FILM LIBRARY STORAGE ONLY DX WRIST Routine 05/06/2019 12:00 AM EST documented in this encounter Results * Film Library- Storage Only DX Wrist (05/06/2019 12:00 AM EST) Narrative RAD - 06/24/2020 3:02 AM EST This exam is auto-finalizing. It's purpose is for storage only. Cj Castro Jr., MD IMG FILM LI BRARY ORDERABLES Performing Organization Address City/State/[facility] Co de Phone Number [place], [place] documented in this encounter Visit Diagnoses Not on filedocumented in this encounter Care Teams Manager Of Quality Relationship Specialty Start Date End Date Dena Alfonso APRN [address] [place] [address] PCP - General Geriatric Medicine 10/12/16 documented as of this encounter
--- OUTSIDE RECORDS SUMMARY | 2024-07-23 02:06 | XMS_ITS | Encounter Summary ---
Author Organization [facility] [place] [address] Care Team Providers Care Forensic Ballistics Expert Name Role Phone Dena Alfonso APRN Primary Care Provider [phone] Encounter Details Date Type Department Care Team (Late st Contact Info) Description 06/02/2020 Telephone Dermatology at [address] [place] [address] Avril Schultz LPN Social History [...] encounter Miscellaneous Notes * Telephone Encounter - Avrli Schultz LPN - 06/02/2020 11:17 AM EST 05/26/2020 Shave biopsy left popliteal fossa Dx: WART Dr. Bowman recommends no further treatment. Reviewed biopsy results and Dr. Girard recommendation with patient. She voiced understanding. documented in this encounter Plan of Treatment Upcoming Encounters Date Type Department Care Team (Late st Contact Info) Description 09/03/2024 11:00 AM EDT Office [place] [address] Josephine Espinosa MD [facility] [place] [address] documented as of this encounter Visit Diagnoses Not on filedocumented in this encounter Care Teams Forensic Ballistics Expert Relationship Specialty Start Date End Date Dena Alfonso APRN [address] [place] [address] PCP - General Geriatric Medicine 10/12/16 documented as of this encounter
--- OUTSIDE RECORDS SUMMARY | 2024-07-23 02:06 | XMS_ITS | Encounter Summary ---
Author Organization [facility] Address [facility] [place] [address] Care Team Providers Care Ankle Patch Molder Name Role Phone Dena Alfonso APRN Primary Care Provider [phone] Encounter Details Date Type Department Care Team (Late st Contact Info) Description 08/09/2020 Telephone Cardiology at [address] [place] [address] Lester Parada MD [facility] [place] [address] Social History Tobacco Use Types Packs/Day Years [...] to have an appt with Dr Parada. @[phone] * Telephone Encounter - Monica Jack RN - 08/10/2020 11:43 AM EST Call back to Rebeca to discuss her inquiry. Through question and answer, these points were noted: 1. Rebeca does not wish to commute to [place] for cardiology care. 2. Rebeca does not have a red hat linux engineer YET. The referral was made to Dr. Clemons and her first appointment would be August 25. 3. A friend of Rebeca is a patient of Dr. Parada and strongly recommended she see him because of the rapport and effective explanation of medical things to her. 4. Rbeeca plans to cancel the appointment with Dr. Clemons because she now prefers Dr. Paarda because of the friend's glowing review 5. [...] 08/25/2020. She would rather see Dr Parada. #[phone] * Telephone Encounter - Monica Jack, RN [...] 2nd opinion from Dr Jose Govea from [facility] about an enlarged aortia w/ Dr Parada. She was told that a referral was not needed since it is a [facility] Doctor to another [facility] Doctor. Please let me know and I will schedule an appt w/ Dr Parada. documented in this encounter Plan of Treatment Upcoming Encounters Date Type Department Care Team (Late st Contact Info) Description 09/03/2024 11:00 AM EDT Office [place] [address] Josephine Espinosa MD [facility] [place] [address] documented as of this encounter Visit Diagnoses Not on filedocumented in this encounter Care Teams Ankle Patch Molder Relationship Specialty Start Date End Date Dena Alfonso APRN [address] [place] [address] PCP - General Geriatric Medicine 10/12/16 documented as of this encounter
--- OUTSIDE RECORDS SUMMARY | 2024-07-23 02:06 | XMS_ITS | Encounter Summary ---
Author Organization [facility] Address [facility] [place] [address] Care Team Providers Care China Decorator Name Role Phone Kykraig Dena MEAT CUTTER APPRENTICE Primary Care Provider [phone] Reason for Visit * Reason Comments Follow-up * Consultation (Routine) - Closed Specialty Diagnoses / Procedures Referred By Mariah tate Referred To Contact Cardiology Diagnoses Thoracic aortic ectasia Personal history of other diseases of the circulatory system Shortness of breath Dena Alfonso APRN [address] [place] [address] Lester Parada MD [facility] [place] [address] Referral ID Status Reason Start Date Expiration Date V isits Requested Visits Authorized [id number] Closed Consult, Test & Treat Connection Center PCP Updated and/or Approved 07/20/2020 07/20/2021 6 6 Encounter Details Date Type Department Care Team ([facility] st Contact Info) Description 07/21/2020 11:00 AM EST Office Visit Cardiology at [address] [address] Xuan Foote MD [facility] [place] [place] [address] Ischemic cardiomyopathy; Aortic aneurysm without rupture, unspecified [...] on phone: None Gets together: None Attends baptism service: None Active member of club or [...] 11:00 AM EDT Office Visit [place] [address] Josephine Espinosa MD [facility] [place] [address] documented as of this encounter Visit Diagnoses Diagnosis Ischemic cardiomyopathy Other specified forms of chronic ischemic heart disease Aortic aneurysm without rupture, unspecified portion of aorta documented in this encounter Care Teams China Decorator Relationship Specialty Start Date End Date Dena Alfonso APRN [address] [place] [address] PCP - General Geriatric Medicine 10/12/16 documented as of this encounter
--- OUTSIDE RECORDS SUMMARY | 2024-07-23 02:06 | XMS_ITS | Encounter Summary ---
Author Organization [facility] Address [facility] [place] [address] Care Team Providers Care Desk Clerk Name Role Phone Dena Alfonso APRN Primary Care Provider [phone] Encounter Details Date Type Department Care Team (Latest Contact Info) Description 07/14/2020 10:48 AM EST - 07/14/2020 11:[address] [facility] Hospital Encounter Mammography/DXA at [facility] [place] [phone] El Bernardo MD [facility] [place] [address] Breast cancer, stage 2, left; BRCA1 genetic [...] 11:00 AM EDT Office [place] [address] Josephine Espinosa MD [facility] [address] documented as of this encounter Procedures Procedure [...] report, please contact the number below. ? 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
--- OUTSIDE RECORDS SUMMARY | 2024-07-23 02:06 | XMS_ITS | Encounter Summary ---
Author Organization [facility] Address [facility] [address] Care Team Providers Care Blunger Loader Name Role Phone Dena Alfonso APRN Primary Care Provider [phone] Reason for Visit * Reason Onset Date Comments Follow-up 02/09/2019 Encounter Details Date Type Department Care Team (Late st Contact Info) Description 02/09/2019 Telephone Hematology/Oncology at [address] [phone] Lupe Mustafa RN Follow-up Social History Tobacco [...] results of mammogram report. Per Marli beach DYNAMOMETER REPAIRER it was negative for any malignancy. Left message for pt about this. She will call with any questions or concerns. She is due to see Pat on Feb 19. documented in this encounter Plan of Treatment Upcoming Encounters Date Type Department Care Team (Late st Contact Info) Description 09/03/2024 11:00 AM EDT Office [place] [phone] Josephine Espinosa MD [facility] [place] [address] documented as of this encounter Visit Diagnoses Not on filedocumented in this encounter Care Teams Blunger Loader Relationship Specialty Start Date End Date Dena Alfonso APRN [address] [place] [address] PCP - General Geriatric Medicine 10/12/16 documented as of this encounter
--- OUTSIDE RECORDS SUMMARY | 2024-07-23 02:06 | XMS_ITS | Encounter Summary ---
Author Organization [facility] Address [facility] [place] [address] Care Team Providers Care Venue Coordinator Name Role Phone Kaden Dena BARONE Primary Care Provider Encounter Details Date Type Department Care Team (Late st Contact Info) Description 02/29/2020 Orders Only Cardiology at [address] [phone] Jose Govea MD [facility] [place] [address] Syncope, unspecified syncope type (Primary Dx) Social [...] 11:00 AM EDT Office [place] [phone] Josephine Espinosa MD [facility] [address] documented as of this encounter Visit Diagnoses Diagnosis Syncope, unspecified syncope type- Primary documented in this encounter Care Teams Venue Coordinator Relationship Specialty Start Date End Date Dena Alfonso APRN [address] [place] [address] PCP - General Geriatric Medicine 10/12/16 documented as of this encounter
--- OUTSIDE RECORDS SUMMARY | 2024-07-23 02:06 | XMS_ITS | Encounter Summary ---
Author Organization [facility] Address [facility] [place] [address] Care Team Providers Care Jig Grinder Set Up Operator Name Role Phone Dena Alfonso LIZABETH Primary Care Provider [phone] Reason for Referral * Surgical (Routine) - Closed Specialty Diagnoses / Procedures Referred By Mariah tate Referred To Contact Gastroenterology Diagnoses Malignant neoplasm of left breast in female, estrogen receptor negative, unspecified site of breast Has never had colo Procedures [place] Bettie Downing APRN [facility] [address] HEMATOLOGY/[place] [address] [facility] Endoscopy [address] [place] [address] Referral ID Status Reason Start Date Expiration Date V isits Requested Visits Authorized [id number] Closed Test Only 02/14/2018 02/14/2019 1 1 Encounter Details Date Type Department Care Team (Late st Contact Info) Description 02/14/2018 3:15 PM EDT Office Visit Hematology/Oncology at [address] [phone] Bettie Downing APRN Malignant neoplasm of left breast in [...] this encounter Progress Notes * Bettie Downing, ENGINEERING INSPECTOR - 02/14/2018 3:15 PM EDT Subjective: Patient [...] with heterologous chondroid differentiation Tumor Grade: High Yzwzrq-Hfais-Cwzmdknhka Score: 9 Tubular Differentiation: 3 Mitotic Rate: [...] carcinoma: 4 Estrogen/Progestin receptors: ER immunoreactivity: Negative [place] immunoreactivity: Negative HER2/yeyo expression by FISH: NEGATIVE [...] same BRCA1 alteration found in her mother (P3025L). Prophylactic BSO 04/2013. Path - Right and left fallopian tubes and ovaries (bilateral salpingo-oophorectomy): No evidence of malignancy. 3. COMPRESSOR HOUSE OPERATOR History: The patient is G4, P3 with [...] I asked her to followup with her [facility] provider about that. RTC 1yr no labs. [...] may change her mind. Bettie Downing, MSN, LEGAL ADVISER, AOCN Hematology/Oncology Nurse Practitioner [place], [place] [phone] documented in this encounter Plan of Treatment Upcoming Encounters Date Type Department Care Team (Late st Contact Info) Description 09/03/2024 11:00 AM EDT Office [place] [address] Josephine Espinosa MD [facility] [place] [address] Scheduled Referrals Name Type Priority Associated Diagnoses Order Schedule Referral to Gastroenterology Outpatient Referral Routine Malignant neoplasm of left breast in female, estrogen receptor negative, unspecified site of breast Ordered: 02/14/2018 documented as of this encounter Visit Diagnoses Diagnosis Malignant neoplasm of left breast in female, estrogen receptor negative, unspecified site of breast documented in this encounter Care Teams Jig Grinder Set Up Operator Relationship Specialty Start Date End Date Dena Alfonso APRN [address] [place] [address] PCP - General Geriatric Medicine 10/12/16 documented as of this encounter
--- OUTSIDE RECORDS SUMMARY | 2024-07-23 02:06 | XMS_ITS | Encounter Summary ---
Author Organization [facility] Address [facility] [place] [address] Care Team Providers Care Hyperbaric Nurse Name Role Phone Dena Alfonso APRN Primary Care Provider [phone] Encounter Details Date Type Department Care Team (Late st Contact Info) Description 02/23/2020 Telephone Cardiology at [address] [phone] Delma Clark, RN Social History Tobacco Use Types Packs/Day [...] 11:00 AM EDT Office [place] [address] Josephine Espinosa MD [facility] [place] [address] documented as of this encounter Visit Diagnoses Not on filedocumented in this encounter Care Teams Hyperbaric Nurse Relationship Specialty Start Date End Date Dena Alfonso APRN [address] [place] [address] [place] [address] PCP - General Geriatric Medicine 10/12/16 documented as of this encounter
--- OUTSIDE RECORDS SUMMARY | 2024-07-23 02:06 | XMS_ITS | Encounter Summary ---
Author Organization [facility] [place] [address] Care Team Providers Care Welding Setter Name Role Phone Dena Alfonso APRN Primary Care Provider [phone] Encounter Details Date Type Department Care Team (Late st Contact Info) Description 05/27/2019 Ancillary Procedure Radiology Library at [facility] [place] [phone] Cj Castro Jr., MD [facility] [place] [address] Social History Tobacco Use Types Packs/Day Years [...] 11:00 AM EDT Office Visit Gastroenterology at [facility] [place] [phone] Josephine Espinosa MD [facility] [place] [address] documented as of this encounter Procedures Procedure Name Priority Date/Time Associated Diagnosis Comments FILM LIBRARY STORAGE ONLY DX WRIST Routine 05/27/2019 12:00 AM EST documented in this encounter Results * Film Library- Storage Only DX Wrist (05/27/2019 12:00 AM EST) Narrative RAD - 06/24/2020 3:03 AM EST This exam is auto-finalizing. It's purpose is for storage only. Cj Castro Jr., MD IMG FILM LI BRARY ORDERABLES Performing Organization Address City/State/[facility] Co de Phone Number [place], [place] documented in this encounter Visit Diagnoses Not on filedocumented in this encounter Care Teams Welding Setter Relationship Specialty Start Date End Date Dena Alfonso APRN [address] [place] [address] PCP - General Geriatric Medicine 10/12/16 documented as of this encounter
--- OUTSIDE RECORDS SUMMARY | 2024-07-23 02:06 | XMS_ITS | Encounter Summary ---
Author Organization [facility] [place] [address] Care Team Providers Care Cutter And Presser Name Role Phone Dena Alfonso APRN Primary Care Provider Encounter Details Date Type Department Care Team (Late Contact Info) Description 01/06/2020 Orders Only Hematology [place] [phone] El Bernardo MD [facility] [place] [address] History of left breast cancer; Breast cancer, [...] 11:00 AM EDT Office [place] [phone] Josephine Espinosa MD [facility] [place] [address] documented as of this encounter Visit Diagnoses Diagnosis History of left breast cancer Breast cancer, stage 1, left Encounter for screening mammogram for malignant neoplasm of breast Other screening mammogram documented in this encounter Care Teams Cutter And Presser Relationship Specialty Start Date End Date Dena Alfonso APRN [address] [place] [address] PCP - General Geriatric Medicine 10/12/16 documented as of this encounter
--- OUTSIDE RECORDS SUMMARY | 2024-07-23 02:06 | XMS_ITS | Encounter Summary ---
Author Organization [facility] Address [facility] [place] [address] Care Team Providers Care Lead Project Engineer Name Role Phone Dena Alfonso APRN Primary Care Provider [phone] Reason for Referral * Diagnostic Test (Routine) - Closed Specialty Diagnoses / Procedures Referred By Mariah tate Referred To Contact Cardiology Diagnoses Other cardiomyopathy Procedures Echocardiogram Transthoracic(Leb) Xuan Foote MD [facility] [place] [address] [facility] [place] [address] Referral ID Status Reason Start Date Expiration Date V isits Requested Visits Authorized [id number] Closed Specialty Service Requested 12/05/2017 12/05/2018 1 1 Reason for Visit * Diagnostic Test (Routine) - Closed Specialty Diagnoses / Procedures Referred By Mariah tate Referred To Contact Cardiology Diagnoses Other cardiomyopathy Procedures Echocardiogram Transthoracic(Leb) Xuan Foote MD [facility] [place] [address] [facility] [place] [address] Referral ID Status Reason Start Date Expiration Date V isits Requested Visits Authorized [id number] Closed Specialty Service Requested 12/05/2017 12/05/2018 1 1 Encounter Details Date Type Department Care Team (Latest Contact Info) Description 01/10/2018 12:58 PM EDT - 01/10/2018 11:59 PM EDT Hospital Encounter Non-Invasive Cardiology Lab [facility] [place] [address] Xuan Foote MD [facility] [place] [address] Other cardiomyopathy Discharge Disposition: Home Social History [...] NEEDED 3 12/12/2017 fluticasone (FLONASE) 50 mcg/actuation [place], Suspension 1 spray by Each Nare route [...] 11:00 AM EDT Office Visit [place] [address] Josephine Espinosa MD [facility] [place] [address] documented as of this encounter Procedures Procedure Name Priority Date/Time Associated Diagnosis Comments ECHO COMPLETE Routine 01/10/2018 3:25 PM EDT Other cardiomyopathy documented in this encounter Results * ECHO COMPLETE (01/10/2018 3:25 PM EDT) EF 66 HEARTLAB SYSTEM Anatomical Region Laterality Modality Other 01/10/2018 Narrative 01/10/2018 4:35 PM EDT Procedure: ?Transthoracic Echocardiogram Patient: ?BRANDON BOCANEGRAYN A ?(Age): 1960(57y) Med Rec#: ? [id number] ?Sex: ?F ? Site Loc: ? [facility] ?Ht / Wt: ??167(cm)/86(kg) Pt. Loc: ?Echo Lab ?BSA: ?1.95 Study Date: ?? 01/10/2018 ?Pt. Type: Outpatient Tape: ? Referring: XUAN FOOTE M Reading: Gary Rosa ([id number]) Integrative Medicine Physician: Guadalupe Palm BA, YUMIKO Diagnosis: BP: ? 110/73 SUMMARY: 1. The [...] E-wave Vmax ?0.6 ?m/sec ? MV deceleration [id number] ?msec ? MV A-wave Vmax ?0.6 ?m/sec [...] ? Mid-Inferior ?Normal ? Mid-Inferoseptal ?Normal ? [place]-Septal ? Normal ? [place]-Anterior ? Normal ? [place]-Lateral ?Normal ? [place]-Inferior ? Normal ? [place]-Tip ?Normal ? This report has been electronically signed by: Gary Rosa MD ? 01/10/2018 15:41:20 Images reviewed and interpretation verified [facility] Cardiac Ultrasound Laboratory Procedure Note Gary Rosa MD - 01/10/2018 Procedure: Transthoracic Echocardiogram Patient: BRANDON HERRERA(Age): 1960(57y) Med Rec#: [id number] Sex: F Site Loc: [facility] Ht / Wt: 167(cm)/86(kg) Pt. Loc: Echo Lab BSA: 1.95 Study Date: 01/10/2018 Pt. Type: Outpatient Tape: Referring: XUAN FOOTE M Reading: Gary Rosa ([id number]) Integrative Medicine Physician: Guadalupe Palm BA [facility] Diagnosis: BP: 110/73 SUMMARY: 1. [...] MV E-wave Vmax 0.6 m/sec MV deceleration [id number] msec MV A-wave Vmax 0.6 m/sec MV [...] Normal Mid-Posterolateral Normal Mid-Inferior Normal Mid-Inferoseptal Normal [place]-Septal Normal [place]-Anterior Normal [place]-Lateral Normal [place]-Inferior Normal [place]-Tip Normal This report has been electronically signed by: Gary Rosa MD 01/10/2018 15:41:20 Images reviewed and interpretation verified [facility] Cardiac Ultrasound Laboratory Xuan Foote MD ECHO ORDERABLES documented in this encounter Visit Diagnoses Diagnosis Other cardiomyopathy documented in this encounter Care Teams Lead Project Engineer Relationship Specialty Start Date End Date Dena Alfonso APRN [address] [facility] [place] [address] PCP - General Geriatric Medicine 10/12/16 documented as of this encounter
--- OUTSIDE RECORDS SUMMARY | 2024-07-23 02:06 | XMS_ITS | Encounter Summary ---
Author Organization [facility] Address [facility] [place] [address] Care Team Providers Care Veterinary Technology Instructor Name Role Phone Dena Alfonso APRN Primary Care Provider [phone] Encounter Details Date Type Department Care Team (Late st Contact Info) Description 04/04/2020 Telephone Cardiology at [address] [phone] Malinda Adam RN Social History Tobacco Use [...] called asking about Holter results. Malinda Melendez RNmill supervisor [facility]ovascular [facility] General Team-[place] documented in this encounter Plan of Treatment Upcoming Encounters Date Type Department Care Team (Late st Contact Info) Description 09/03/2024 11:00 AM EDT Office Visit [place] [address] Josephine Espinosa MD [facility] [place] [address] documented as of this encounter Visit Diagnoses Not on filedocumented in this encounter Care Teams Veterinary Technology Instructor Relationship Specialty Start Date End Date Dena Alfonso APRN [address] [place] [address] PCP - General Geriatric Medicine 10/12/16 documented as of this encounter
--- OUTSIDE RECORDS SUMMARY | 2024-07-23 02:07 | XMS_ITS | Encounter Summary ---
Author Organization [facility] [address] Care Team Providers Care Testing Specialist Name Role Phone Raoul Michelle YADIRA Primary Care Provider [phone] Reason for Visit * Reason Comments Allergies Follow-up Encounter Details Date Type Department Care Team (Latest Contact Info) Description 08/04/2015 10:00 AM EST Office Visit Allergy at [facility] [place] [address] Queenie Warren MD Allergic rhinoconjunctivitis of both eyes; Desensitization to [...] for cardiopmyopathy. She was evaluated by the shift manager, Dr. Govea, who recommended discontinuing the metoprolol [...] ADNEXA performed by Carly Chamberlain MD at [facility] MAIN OR ??? Tonsillectomy ??? [...] for observation. I also reviewed with her bed bug exterminator risksand benefits and success rates of immunotherapy. [...] medications Medications ??? fluticasone (FLONASE) 50 mcg/actuation [place], Suspension Si sprays by Each Nare route [...] AM EDT Office [place] [address] Josephine Espinosa MD [facility] [place] [address] documented as of this encounter Visit Diagnoses Diagnosis Allergic rhinoconjunctivitis of both eyes Desensitization to allergens Need for desensitization to allergens Environmental allergies Allergic rhinitis, cause unspecified documented in this encounter Care Teams Testing Specialist Relationship Specialty Start Date End Date Michelle Silveira PA PCP - General 05/09/10 08/04/15 documented as of this encounter
--- OUTSIDE RECORDS SUMMARY | 2024-07-23 02:07 | XMS_ITS | Encounter Summary ---
Author Organization [facility] Address [facility] [place] [address] Care Team Providers Care Refrigeration Installer Name Role Phone Robert Hummel MD Primary Care Provider [phone] Reason for Visit * Reason Onset Date Comments Results 05/25/2016 Encounter Details Date Type Department Care Team ([facility] st Contact Info) Description 05/25/2016 Telephone Cardiology at [address] [address] Ana Valladares, RN Results Social History Tobacco [...] 11:00 AM EDT Office [place] [address] Josephine Espinosa MD [facility] [place] [address] documented as of this encounter Visit Diagnoses Not on filedocumented in this encounter Care Teams Refrigeration Installer Relationship Specialty Start Date End Date Robert Hummel MD PCP - General General Internal Medicine 05/22/1609/16 documented as of this encounter
--- OUTSIDE RECORDS SUMMARY | 2024-07-23 02:07 | XMS_ITS | Encounter Summary ---
Author Organization [facility] Address [facility] [place] [address] Care Team Providers Care Carburetor Repairer Name Role Phone Michelle Silveira Primary Care Provider [phone] Encounter Details Date Type Department Care Team (Late Contact Info) Description 06/20/2015 Orders Only Hematology/Oncology at [address] [phone] El Bernardo MD [facility] [place] [address] Social History Tobacco Use Types Packs/Day Years [...] 11:00 AM EDT Office [place] [address] Josephine Espinosa MD [facility] [place] [address] documented as of this encounter Visit Diagnoses Not on filedocumented in this encounter Care Teams Carburetor Repairer Relationship Specialty Start Date End Date Michelle Silveira PA PCP - General 05/09/10 08/04/15 documented as of this encounter
--- OUTSIDE RECORDS SUMMARY | 2024-07-23 02:07 | XMS_ITS | Encounter Summary ---
Author Organization [facility] Address [facility] [place] [address] Care Team Providers Care Director Field Services Name Role Phone Robert Hummel MD Primary Care Provider [phone] Encounter Details Date Type Department Care Team (Latest Contact Info) Description 08/17/2015 10:08 AM EST - 08/17/2015 10:10 AM [facility] Hospital Encounter Mammography at [facility] [place] [address] Alexi Armstrong MD [facility] [place] [address] Abnormal MRI, breast Discharge Disposition: Home Social [...] outpatient prescriptions: ??? fluticasone (FLONASE) 50 mcg/actuation [place], Suspension, 2 sprays by Each Nare route [...] 11:00 AM EDT Office [place] [address] Josephine Espinosa MD [facility] [place] [address] documented as of this encounter Procedures Procedure [...] of Gadovist. Lesion localization was performed using [employer] software. Sterile technique was deployed. Approximately 5 cc 1% lidocaine (superficial) and approximately 10 1% lidocaine with epinephrine (deep) used for local anesthesia. A small skin incision was made and a biopsy was performed from a lateral approach. Multiple core biopsy specimens were obtained using a [employer] 20mm MR vacuum assisted device. Satisfactory sampling was obtained. A ATE top hat steamer clip was placed. Cranio-caudal and lateral digital [...] report to follow Alexi Armstrong MD PATHOLOGY/CYTOLOGY Vanessa MACKEY Performing Organization Address City/State/[facility] Co de Phone Number [facility] [place] [address] * Surgical Pathology Report (08/17/2015 11:45 AM EST) Final Diagnosis [id number] ? Location: 3L The signing pathologist has (i) examined the relevant preparation(s) for the specimen(s) and (ii) rendered or confirmed the diagnosis(es). . ?Surgical Pathology DIAGNOSIS Needle biopsies: ??Right breast. Diagnosis: ??Fibrocystic changes including adenosis, columnar cell change and hyperplasia, cysts, usual ductal hyperplasia, and focal stromal PASH. Microcalcificat ions: ??NA 08/18/15 CCB 08/18/15 Verified by: ? Black DO, Reyna C. ?Pathologist ?(Electronic Signature) The attending pathologist whose [...] AM EST Alexi Armstrong MD PATHOLOGY/CYTOLOGY O RDERAALFONSO [facility] [place] [address] documented in this encounter Visit Diagnoses Diagnosis [...] mLs documented in this encounter Care Teams Director Field Services Relationship Specialty Start Date End Date Robert Hummel MD PCP - General General Internal Medicine 08/05/1511/16 documented as of this encounter
--- OUTSIDE RECORDS SUMMARY | 2024-07-23 02:07 | XMS_ITS | Encounter Summary ---
Author Organization [facility] Address [facility] [place] [address] Care Team Providers Care Nozzle Worker Name Role Phone Robert Hummel MD Primary Care Provider [phone] Reason for Visit * Reason Comments Immunotherapy Encounter Details Date Type Department Care Team (Latest Contact Info) Description 10/12/2015 1:30 PM EDT Clinical Support Allergy at [facility] [place] [address] Allergic rhinitis due to pollen; Allergic rhinitis [...] 11:00 AM EDT Office Visit [place] [address] Josephine Espinosa MD [facility] [place] [address] documented as of this encounter Visit Diagnoses Diagnosis Allergic rhinitis due to pollen 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
--- OUTSIDE RECORDS SUMMARY | 2024-07-23 02:07 | XMS_ITS | Encounter Summary ---
Author Organization [facility] Address [facility] [place] [address] Care Team Providers Care Archeologist Name Role Phone Robert Hummel MD Primary Care Provider [phone] Reason for Visit * Reason Onset Date Comments Immunotherapy 09/13/2015 Encounter Details Date Type Department Care Team ([facility] st Contact Info) Description 09/13/2015 [place] [address] Ankita Guzmán LPN Immunotherapy Social History Tobacco [...] 11:00 AM EDT Office [place] [address] Josephine Espinosa MD [facility] [place] [address] documented as of this encounter Visit Diagnoses Not on filedocumented in this encounter Care Teams Archeologist Relationship Specialty Start Date End Date Robert Hummel MD PCP - General General Internal Medicine 08/05/15 6/2 12/30 documented as of this encounter
--- OUTSIDE RECORDS SUMMARY | 2024-07-23 02:07 | XMS_ITS | Encounter Summary ---
Author Organization [facility] Address [facility] [place] [address] Care Team Providers Care Central Office Repairer Supervisor Name Role Phone Robert Hummel MD Primary Care Provider Reason for Visit * Reason Comments Immunotherapy Encounter Details Date Type Department Care Team (Latest Contact Info) Description 09/28/2015 1:15 PM EDT [place] [address] Allergic rhinitis due to pollen; Allergic rhinitis [...] 11:00 AM EDT Office [place] [address] Josephine Espinosa MD [facility] [place] [address] documented as of this encounter Visit Diagnoses Diagnosis Allergic rhinitis due to pollen 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
--- OUTSIDE RECORDS SUMMARY | 2024-07-23 02:07 | XMS_ITS | Encounter Summary ---
Author Organization [facility] [place] [place] [address] Care Team Providers Care Ethnic Origins Teacher Name Role Phone Raoul Michelle YADIRA Primary Care Provider [phone] Reason for Visit * Reason Comments Immunotherapy Encounter Details Date Type Department Care Team (Latest Contact Info) Description 03/24/2015 11:30 AM EDT Clinical Support Allergy at [facility] [place] [address] Allergic rhinitis due to pollen; Allergic rhinitis [...] 11:00 AM EDT Office Visit [place] [address] Josephine Espinosa MD [facility] [place] [address] documented as of this encounter Visit Diagnoses Diagnosis Allergic rhinitis due to pollen 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
--- OUTSIDE RECORDS SUMMARY | 2024-07-23 02:07 | XMS_ITS | Encounter Summary ---
Author Organization [facility] Address [facility] [place] [address] Care Team Providers Care Cooperative Manager Name Role Phone Robert Hummel MD Primary Care Provider [phone] Reason for Referral * Diagnostic Test (Routine) - Specialty Diagnoses / Procedures Referred By Mariah tate Referred To Contact Radiology Diagnoses Abnormal MRI, breast Procedures MRI Breast Right Biopsy Vacuum Assist With Clip Placement Britt Armstrong MD [facility] [place] [address] [place] [address] Referral ID Status Reason Start Date Expiration Date Visits Requested Visits Authorized [id number] Specialty Service Requested 08/05/2015 08/04/2016 1 1 Reason for Visit * Diagnostic Test (Routine) - Specialty Diagnoses / Procedures Referred By Mariah tate Referred To Contact Radiology Diagnoses Abnormal MRI, breast Procedures MRI Breast Right Biopsy Vacuum Assist With Clip Placement Britt Armstrong MD [facility] [place] [address] [place] [address] Referral ID Status Reason Start Date Expiration Date Visits Requested Visits Authorized [id number] Specialty Service Requested 08/05/2015 08/04/2016 1 1 Encounter Details Date Type Department Care Team (Latest Contact Info) Description 08/17/2015 10:11 AM EST - 08/17/2015 11:59 PM EST Hospital [place] [address] Britt Armstrong MD [facility] [place] [address] Abnormal MRI, breast Discharge Disposition: Home Social [...] each 1 06/16/2014 estradiol (VAGIFEM) 10 mcg TabletIndications:[place] pause Place 1 tablet vaginally twice a [...] 11:00 AM EDT Office [place] [address] Josephine Espinoas MD [facility] [place] [address] documented as of this encounter Procedures Procedure [...] of Gadovist. Lesion localization was performed using Metrilus software. Sterile technique was deployed. Approximately 5 cc 1% lidocaine (superficial) and approximately 10 1% lidocaine with epinephrine (deep) used for local anesthesia. A small skin incision was made and a biopsy was performed from a lateral approach. Multiple core biopsy specimens were obtained using a CollabRxc 20mm MR vacuum assisted device. Satisfactory sampling was obtained. A [employer]anbai top hat presser clip was placed. Cranio-caudal and lateral digital mammography performed to determine biopsy marker placement, which was shown to be 3 cm from the biopsy site in medial direction. COMPLICATIONS: None. PROCEDURAL ATTESTATION: Resident: Miguel Bianchi performed the procedure with the resident observing. IMAGING DIFFERENTIAL DIAGNOSIS: FCD, papilloma, CA PATHOLOGIC DIAGNOSIS: FCD Britt Armstrong MD IMG MRI ORDERABLES documented in this [...] mLs documented in this encounter Care Teams Cooperative Manager Relationship Specialty Start Date End Date Robert Hummel MD PCP - General General Internal Medicine 08/05/152 12/30 documented as of this encounter
--- OUTSIDE RECORDS SUMMARY | 2024-07-23 02:07 | XMS_ITS | Encounter Summary ---
Author Organization [facility] Address [facility] [place] [address] Care Team Providers Care City Detective Name Role Phone Raoul Michelle MAY Primary Care Provider [phone] Encounter Details Date Type Department Care Team (Latest Contact Info) Description 08/04/2015 11:12 AM EST - 08/04/2015 11:48 AM EST Hospital Encounter Mammography at [facility] [place] [address] El Bernardo MD [facility] [place] [address] Personal history of breast cancer Discharge Disposition: [...] each 1 06/16/2014 estradiol (VAGIFEM) 10 mcg TabletIndications:[place] pause Place 1 tablet vaginally twice a [...] 11:00 AM EDT Office [place] [address] Josephine Espinosa MD [facility] [place] [address] documented as of this encounter Procedures Procedure [...] BIRADS CATEGORY 2: BENIGN FINDINGS * ??[employer] and [employer] Society of [...] breast documented in this encounter Care Teams City Detective Relationship Specialty Start Date End Date Michelle Silveira PA PCP - General 05/09/10 08/04/15 documented as of this encounter
--- OUTSIDE RECORDS SUMMARY | 2024-07-23 02:07 | XMS_ITS | Encounter Summary ---
Author Organization [facility] Address [facility] [place] [address] Care Team Providers Care Electrolytic De Scaler Name Role Phone Dena Alfonso LIZABETH Primary Care Provider [phone] Reason for Referral * Physical Therapy (Routine) - Specialty Diagnoses / Procedures Referred By Mariah tate Referred To Contact Physical Therapy Diagnoses Malignant 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, unspecified site of breast Bettie Downing APRN [facility] DR HEMATOLOGY/[place] [address] Referral ID Status Reason Start Date Expiration Date V isits Requested Visits Authorized [id number] Evaluate and Treat 10/12/2016 04/10/2017 12 12 Encounter Details Date Type Department Care Team (Late st Contact Info) Description 10/12/2016 1:45 PM EDT Office Visit Hematology/Oncology at [address] [address] Bettie Downing APRN Malignant 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, unspecified [...] this encounter Progress Notes * Bettie Downing, LEAK GANG SUPERVISOR - 10/12/2016 1:45 PM EDT Subjective: Patient [...] with heterologous chondroid differentiation Tumor Grade: High Rkjesp-Rmocn-Qbwzqrwuvq Score: 9 Tubular Differentiation: 3 Mitotic Rate: [...] carcinoma: 4 Estrogen/Progestin receptors: ER immunoreactivity: Negative WA immunoreactivity: Negative HER2/yeyo expression by FISH: NEGATIVE [...] same BRCA1 alteration found in her mother ([id number]). Prophylactic BSO 04/2013. Path - Right and left fallopian tubes and ovaries (bilateral salpingo-oophorectomy): No evidence of malignancy. 3. REGIONAL ADMINISTRATIVE ASSISTANT History: The patient is G4, P3 with [...] like to have up here rather than [facility] I will arrange for this and she [...] may change her mind. Bettie Downing, MSN, LETTER SORTING MACHINE OPERATOR, AOCN Hematology/Oncology Nurse Practitioner [place], [place] [phone] documented in this encounter Plan of Treatment Upcoming Encounters Date Type Department Care Team (Late st Contact Info) Description 09/03/2024 11:00 AM EDT Office [place] [address] Josephine Espinosa MD [facility] [place] [address] Scheduled Referrals Name Type Priority Associated Diagnoses [...] breast documented in this encounter Care Teams Electrolytic De Scaler Relationship Specialty Start Date End Date Dena Alfonso APRN [address] [place] [address] PCP - General Geriatric Medicine 10/12/16 documented as of this encounter
--- OUTSIDE RECORDS SUMMARY | 2024-07-23 02:07 | XMS_ITS | Encounter Summary ---
Author Organization [facility] Address [facility] [place] [address] Care Team Providers Care Necktie Centralizing Machine Operator Name Role Phone Robert Hummel MD Primary Care Provider [phone] Reason for Visit * Reason Comments Immunotherapy Encounter Details Date Type Department Care Team (Latest Contact Info) Description 10/19/2015 1:15 PM EDT Clinical [place] [address] Allergic rhinitis due to pollen; Allergic rhinitis [...] 11:00 AM EDT Office [place] [address] Josephine Espinosa MD [facility] [address] documented as of this encounter Visit Diagnoses Diagnosis Allergic rhinitis due to pollen Allergic rhinitis due to mold Allergic rhinitis due to dust mite documented in this encounter Care Teams Necktie Centralizing Machine Operator Relationship Specialty Start Date End Date Robert Hummel MD PCP - General General Internal Medicine 08/05/152 12/30 documented as of this encounter
--- OUTSIDE RECORDS SUMMARY | 2024-07-23 02:07 | XMS_ITS | Encounter Summary ---
Author Organization [facility] [place] [address] Care Team Providers Care Job Order Clerk Name Role Phone Robert Hummel MD Primary Care Provider [phone] Reason for Visit * Reason Comments Allergies Immunotherapy Encounter Details Date Type Department Care Team ([facility] st Contact Info) Description 12/01/2015 10:00 AM EDT Office Visit Allergy at [facility] [place] [address] Queenie Warren MD Allergic rhinoconjunctivitis; Desensitization to allergens; Environmental allergies [...] was given on 10/27/15. Patient was in [facility] for two weeks and patient felt better. [...] tablet 3 ??? fluticasone (FLONASE) 50 mcg/actuation [place], Suspension 2 sprays by Each Nare route [...] ADNEXA performed by Carly Chamberlain MD at [facility] ??? Tonsillectomy ??? Adenoidectomy ??? Breast biopsy Right [id number] INVASIVE CA ??? Breast lumpectomy Right 02-26-2005 [...] to allergens # Environmental allergies NOTE IN SUPERVISOR DIALS RTC in 1 month eDH record was [...] 11:00 AM EDT [place] [address] Josephine Espinosa MD [facility] [place] [address] documented as of this encounter Procedures Procedure [...] unspecified documented in this encounter Care Teams Job Order Clerk Relationship Specialty Start Date End Date Robert Hummel MD PCP - General General Internal Medicine 08/05/1511/16 documented as of this encounter
--- OUTSIDE RECORDS SUMMARY | 2024-07-23 02:07 | XMS_ITS | Encounter Summary ---
Author Organization [facility] Address [facility] [place] [address] Care Team Providers Care Tree Chipper Name Role Phone Robert Hummel MD Primary Care Provider [phone] Encounter Details Date Type Department Care Team (Latest Contact Info) Description 08/17/2015 9:39 AM EST - 08/17/2015 10:07 AM [facility] Hospital Encounter XRay at [address] [place] [address] El Bernardo MD [facility] [place] [address] Chronic lower back pain Discharge Disposition: Home [...] 11:00 AM EDT Office [place] [address] Josephine Espinosa MD [facility] [place] [address] documented as of this encounter Procedures Procedure [...] Lumbago documented in this encounter Care Teams Tree Chipper Relationship Specialty Start Date End Date Robert Hummel MD PCP - General General Internal Medicine 08/05/1511/16 documented as of this encounter
--- OUTSIDE RECORDS SUMMARY | 2024-07-23 02:07 | XMS_ITS | Encounter Summary ---
Author Organization [facility] [place] [address] Care Team Providers Care Floor Coverer Name Role Phone Robert Hummel MD Primary Care Provider [phone] Reason for Referral * Diagnostic Test (Routine) - Specialty Diagnoses / Procedures Referred By Mariah tate Referred To Contact Radiology Diagnoses Abnormal MRI, breast Procedures MRI Breast Right Biopsy Vacuum Assist With Clip Placement Britt Armstrong MD [facility] [place] [address] [facility] [place] [address] Referral ID Status Reason Start Date Expiration Date Visits Requested Visits Authorized [id number] Specialty Service Requested 08/05/2015 08/04/2016 1 1 Encounter Details Date Type Department Care Team ([facility] Contact Info) Description 08/04/2015 [place] [address] Britt Armstrong MD [facility] DR [place] [address] Abnormal MRI, breast Social History Tobacco Use [...] 11:00 AM EDT Office [place] [address] Josephine Espinosa MD [facility] [place] [address] documented as of this encounter Results * [...] of Gadovist. Lesion localization was performed using MedArkive software. Sterile technique was deployed. Approximately 5 cc 1% lidocaine (superficial) and approximately 10 1% lidocaine with epinephrine (deep) used for local anesthesia. A small skin incision was made and a biopsy was performed from a lateral approach. Multiple core biopsy specimens were obtained using a Plaidc 20mm MR vacuum assisted device. Satisfactory sampling was obtained. A [employer] top wool hat finisher clip was placed. Cranio-caudal and lateral digital mammography performed to determine biopsy marker placement, which was shown to be 3 cm from the biopsy site in medial direction. COMPLICATIONS: None. PROCEDURAL ATTESTATION: Resident: Miguel Bianchi performed the procedure with the resident observing. IMAGING DIFFERENTIAL DIAGNOSIS: FCD, papilloma, CA PATHOLOGIC DIAGNOSIS: FCD Britt Armstrong MD IMG MAMMO ORDERABLES * MRI Breast Right Biopsy [...] of Gadovist. Lesion localization was performed using MedArkive software. Sterile technique was deployed. Approximately 5 cc 1% lidocaine (superficial) and approximately 10 1% lidocaine with epinephrine (deep) used for local anesthesia. A small skin incision was made and a biopsy was performed from a lateral approach. Multiple core biopsy specimens were obtained using a [employer] 20mm MR vacuum assisted device. Satisfactory sampling was obtained. A [employer] top wool hat finisher clip was placed. Cranio-caudal and lateral digital [...] breast documented in this encounter Care Teams Floor Coverer Relationship Specialty Start Date End Date Robert Hummel MD PCP - General General Internal Medicine 08/05/1511/16 documented as of this encounter
--- OUTSIDE RECORDS SUMMARY | 2024-07-23 02:07 | XMS_ITS | Encounter Summary ---
Author Organization [facility] Address [facility] [place] [address] Care Team Providers Care Finishing Supervisor Name Role Phone Dena Alfonso APRN Primary Care Provider [phone] Encounter Details Date Type Department Care Team (Late st Contact Info) Description 10/15/2016 Telephone Hematology/Oncology at [address] [address] Car Mathias Social History Tobacco Use Types [...] that I have scheduled her mammo at [facility]. I gave her the appointment time and date of 10/23 at 1:30, arrival at 1:15. She was agreeable to this appointment. I informed her that I would send her an appointment card as a reminder. documented in this encounter Plan of Treatment Upcoming Encounters Date Type Department Care Team (Late st Contact Info) Description 09/03/2024 11:00 AM EDT Office Visit [place] [address] Josephine Espinosa MD [facility] [place] [address] documented as of this encounter Visit Diagnoses Not on filedocumented in this encounter Care Teams Finishing Supervisor Relationship Specialty Start Date End Date Dena Alfonso APRN [address] [place] [address] PCP - General Geriatric Medicine 10/12/16 documented as of this encounter
--- OUTSIDE RECORDS SUMMARY | 2024-07-23 02:07 | XMS_ITS | Encounter Summary ---
Author Organization [facility] Address [facility] [place] [address] Care Team Providers Care Gospel Worker Name Role Phone Robert Hummel MD Primary Care Provider [phone] Reason for Referral * Diagnostic Test (Routine) - Closed Specialty Diagnoses / Procedures Referred By Galindoac t Referred To Contact Cardiology Diagnoses Cardiomyopathy Procedures Echocardiogram Transthoracic(Leb) Jose Govea MD [facility] [place] [address] [facility] [place] [address] Referral ID Status Reason Start Date Expiration Date V isits Requested Visits Authorized [id number] Closed Specialty Service Requested 05/22/2016 05/22/2017 1 1 Reason for Visit * Diagnostic Test (Routine) - Closed Specialty Diagnoses / Procedures Referred By Contfiona t Referred To Contact Cardiology Diagnoses Cardiomyopathy Procedures Echocardiogram Transthoracic(Leb) Jose Govea MD [facility] [place] [address] [facility] [place] [address] Referral ID Status Reason Start Date Expiration Date V isits Requested Visits Authorized [id number] Closed Specialty Service Requested 05/22/2016 05/22/2017 1 1 Encounter Details Date Type Department Care Team (Latest Contact Info) Description 05/22/2016 1:00 PM EST - 05/22/2016 11:59 PM EST Hospital Encounter Non-Invasive Cardiology Lab [facility] [place] [address] Jose Govea MD [facility] [place] [address] Cardiomyopathy Discharge Disposition: Home Social History Tobacco [...] each 1 06/16/2014 fluticasone (FLONASE) 50 mcg/actuation [place], Suspension 1 spray 2 times daily as needed for Rhinitis. Reported on 10/12/2016 03/11/2017 estradiol (VAGIFEM) 10 mcg TabletIndications:[place] pause Place 1 tablet vaginally twice a [...] 11:00 AM EDT Office Visit Gastroenterology at [facility] [place] [address] Josephine Espinosa MD [facility] [place] [address] documented as of this encounter Procedures Procedure [...] ?Transthoracic Echocardiogram Patient: ?BRANDON CRAWFORD A ?(Age): 1960(55y) Med Rec#: ? [id number] ?Sex: ?F ? [place] [facility] [place]t / Wt: ??165(cm)/83(kg) Pt. Loc: ?Echo Lab ?BSA: ?1.9 Study Date: ?? 05/22/2016 ?Pt. Type: Outpatient Tape: ? 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 Cardiomyopathy Rhythm: ? Sinus BP: [...] E-wave Vmax ?0.6 ?m/sec ? MV deceleration ceed444.9 ?msec ? MV A-wave Vmax ?0.5 ?m/sec [...] ? Mid-Inferior ?Normal ? Mid-Inferoseptal ?Normal ? [place]-Septal ? Normal ? [place]-Anterior ? Normal ? [place]-Lateral ?Normal ? [place]-Inferior ? Normal ? [place]-Tip ?Normal ? This report has been electronically signed by: Lloyd Syed MD ? 05/22/2016 14:44:45 Images reviewed and interpretation verified [facility] Cardiac Ultrasound Laboratory Procedure Note Lloyd Syed MD - 05/22/2016 Procedure: Transthoracic Echocardiogram Patient: BRANDON HERRERA(Age): 1960(55y) Med Rec#: [id number] Sex: F [place] [facility] [place]t / Wt: 165(cm)/83(kg) Pt. Loc: Echo Lab BSA: 1.9 Study Date: 05/22/2016 Pt. 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) *Neoplasm of Uncertain Behavior of other Specified Sites (238.8) CPT Codes: *Echo Full (85603) *Spectral Doppler (98415) *Color Doppler (01696) Indication: Cardiomyopathy Rhythm: Sinus BP: 130/82 HR: [...] MV E-wave Vmax 0.6 m/sec MV deceleration silq674.9 msec MV A-wave Vmax 0.5 m/sec MV [...] Normal Mid-Posterolateral Normal Mid-Inferior Normal Mid-Inferoseptal Normal [place]-Septal Normal [place]-Anterior Normal [place]-Lateral Normal [place]-Inferior Normal [place]-Tip Normal This report has been electronically signed by: Lloyd Syed MD 05/22/2016 14:44:45 Images reviewed and interpretation verified [facility] Cardiac Ultrasound Laboratory Jose Govea MD ECHO ORDERABLES documented in this encounter Visit Diagnoses Diagnosis Cardiomyopathy Other primary cardiomyopathies documented in this encounter Care Teams Gospel Worker Relationship Specialty Start Date End Date Robert Hummel MD PCP - General General Internal Medicine 05/22/1609/16 documented as of this encounter
--- OUTSIDE RECORDS SUMMARY | 2024-07-23 02:07 | XMS_ITS | Encounter Summary ---
[place] [address] Care Team Providers Care Linux Vmware Administrator Name Role Phone Michelle Silveira Primary Care Provider [phone] Reason for Referral * Diagnostic Test (Routine) - Closed Specialty Diagnoses / Procedures Referred By Mariah tate Referred To Contact Cardiology Diagnoses Cardiomyopathy Shortness of breath Heartburn Procedures Echocardiogram Transthoracic(Leb) Cande Kincaid APRN [address] [facility] [address] [place] [address] [facility] [place] [address] Referral ID Status Reason Start Date Expiration Date V isits Requested Visits Authorized [id number] Closed Specialty Service Requested 05/13/2015 05/12/2016 1 1 Reason for Visit * Diagnostic Test (Routine) - Closed Specialty Diagnoses / Procedures Referred By Mariah tate Referred To Contact Cardiology Diagnoses Cardiomyopathy Shortness of breath Heartburn Procedures Echocardiogram Transthoracic(Leb) Cande Kincaid BOXCAR WEIGHER [address] [place] [address] [facility] [place] [address] Referral ID Status Reason Start Date Expiration Date V isits Requested Visits Authorized [id number] Closed Specialty Service Requested 05/13/2015 05/12/2016 1 1 Encounter Details Date Type Department Care Team (Latest Contact Info) Description 05/24/2015 8:51 AM EST - 05/24/2015 11:59 PM EST Hospital Encounter Non-In[place] [address] Cardiomyopathy; Shortness of breath; Heartburn [...] mouth daily. 08/04/2015 estradiol (VAGIFEM) 10 mcg TabletIndications:Klesie pause Place 1 tablet vaginally twice a [...] 11:00 AM EDT Office [place] [address] Josephine Espinosa MD [facility] [place] [address] documented as of this encounter Procedures Procedure Name Priority Date/Time Associated Diagnosis Comments ECHO COMPLETE Routine 05/24/2015 9:33 AM EST Cardiomyopathy Shortness of breath Heartburn documented in this encounter Results * ECHO COMPLETE (05/24/2015 9:33 AM EST) EF 66 HEARTLAB SYSTEM Anatomical Region Laterality Modality Other 05/24/2015 Narrative 05/24/2015 9:49 AM EST Procedure: ?Transthoracic Echocardiogram Patient: ?BRANDON TY A ?(Age): 1960(54y) Med Rec#: ? [id number] ?Sex: ?F ? [place] [facility] [place]t / Wt: ??165(cm)/83(kg) Pt. Loc: ?Echo Lab ?BSA: ?1.9 Study Date: ?? 05/24/2015 ?Pt. Type: Outpatient Tape: ? Referring: Cande Estevez Reading: Clyde Matthew ([id number]) Fiberglass Bonding Machine Tender: Saloni Malagon Diagnosis: *ICD-10-PCS Shortness of breath (R06.02) *ICD-10-PCS Cardiomyopathy, unspecified (I42.9) CPT Codes: *Echo Full (64863) *Spectral Doppler (58728) *Color Doppler (75885) BP: ? 105/63 SUMMARY: 1. The left [...] E-wave Vmax ?0.7 ?m/sec ? MV deceleration bdnk287.2 ?msec ? MV A-wave Vmax ?0.5 ?m/sec [...] ? Mid-Inferior ?Normal ? Mid-Inferoseptal ?Normal ? [place]-Septal ? Normal ? [place]-Anterior ? Normal ? [place]-Lateral ?Normal ? [place]-Inferior ? Normal ? [place]-Tip ?Normal ? This report has been electronically signed by: Clyde Matthew MD ? 05/24/2015 09:48:57 Images reviewed and interpretation verified [facility] Cardiac Ultrasound Laboratory Procedure Note Clyde Matthew MD - 05/24/2015 Procedure: Transthoracic Echocardiogram Patient: BRANDON HERRERA(Age): 1960(54y) Med Rec#: [id number] Sex: F [place] [facility] [place]t / Wt: 165(cm)/83(kg) Pt. Loc: Echo Lab BSA: 1.9 Study Date: 05/24/2015 Pt. Type: Outpatient Tape: Referring: Cande Estevez Reading: Clyde Matthew ([id number]) Fiberglass Bonding Machine Tender: Saloni Malagon Diagnosis: *ICD-10-PCS Shortness of breath (R06.02) *ICD-10-PCS Cardiomyopathy, unspecified (I42.9) CPT Codes: *Echo Full (54679) *Spectral Doppler (01924) *Color Doppler (11030) BP: 105/63 SUMMARY: 1. The left ventricular [...] MV E-wave Vmax 0.7 m/sec MV deceleration szxy522.2 msec MV A-wave Vmax 0.5 m/sec MV [...] Normal Mid-Posterolateral Normal Mid-Inferior Normal Mid-Inferoseptal Normal [place]-Septal Normal [place]-Anterior Normal [place]-Lateral Normal [place]-Inferior Normal [place]-Tip Normal This report has been electronically signed by: Clyde Matthew MD 05/24/2015 09:48:57 Images reviewed and interpretation verified [facility] Cardiac Ultrasound Laboratory Cande Kincaid APRN ECHO ORDERABLES documented in this encounter Visit Diagnoses Diagnosis Cardiomyopathy Other primary cardiomyopathies Shortness of breath Heartburn documented in this encounter Care Teams Linux Vmware Administrator Relationship Specialty Start Date End Date Michelle Silveira PA PCP - General 05/09/10 08/04/15 documented as of this encounter
--- OUTSIDE RECORDS SUMMARY | 2024-07-23 02:07 | XMS_ITS | Encounter Summary ---
Author Organization [facility] Address [facility] [place] [address] Care Team Providers Care Product Designer Name Role Phone Robert Hummel MD Primary Care Provider [phone] Reason for Visit * Reason Comments Immunotherapy Encounter Details Date Type Department Care Team (Latest Contact Info) Description 10/05/2015 1:00 PM EDT [place] [address] Allergic rhinitis due to pollen; Allergic rhinitis [...] 11:00 AM EDT Office [place] [address] Josephine Espinosa MD [facility] [place] [address] documented as of this encounter Visit Diagnoses Diagnosis Allergic rhinitis due to pollen Allergic rhinitis due to mold Allergic rhinitis due to dust mite documented in this encounter Care Teams Product Designer Relationship Specialty Start Date End Date Robert Hummel MD PCP - General General Internal Medicine 08/05/1511/16 documented as of this encounter
--- OUTSIDE RECORDS SUMMARY | 2024-07-23 02:07 | XMS_ITS | Encounter Summary ---
Author Organization [facility] Address [facility] [place] [address] Care Team Providers Care Bandmill Operator Name Role Phone RaoulMichelle YADIRA Primary Care Provider [phone] Reason for Visit * Reason Comments Other Encounter Details Date Type Department Care Team ([facility] st Contact Info) Description 05/11/2015 Telephone Allergy at [facility] [place] [address] Mraley Bustos LPN Social History Tobacco Use Types [...] then? Ankita ----- Message ----- From: OdilonRebeca Hardeep Sent: 05/05/2015 8:57 AM To: Rodolfo [...] 11:00 AM EDT Office [place] [address] Josephine Espinosa MD [facility] [place] [address] documented as of this encounter Visit Diagnoses Not on filedocumented in this encounter Care Teams Bandmill Operator Relationship Specialty Start Date End Date Michelle Silveira PA PCP - General 05/09/10 08/04/15 documented as of this encounter
--- OUTSIDE RECORDS SUMMARY | 2024-07-23 02:07 | XMS_ITS | Encounter Summary ---
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, unspecified site of breast BRCA1 positive Procedures MRI Breast Bilateral W/WO Contrast El Bernardo MD [facility] [place] [address] [place] [address] Referral ID Status Reason Start Date Expiration Date V isits Requested Visits Authorized [id number] Closed Specialty Service Requested 06/29/2015 06/28/2016 1 1 Reason for Visit * Diagnostic Test (Routine) - Closed Specialty Diagnoses / Procedures Referred By Mariah tate Referred To Contact Radiology Diagnoses Malignant 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, unspecified site of breast BRCA1 positive Procedures MRI Breast Bilateral W/WO Contrast El Bernardo MD [facility] [place] [address] [place] [address] Referral ID Status Reason Start Date Expiration Date V isits Requested Visits Authorized [id number] Closed Specialty Service Requested 06/29/2015 06/28/2016 1 1 Encounter Details Date Type Department Care Team (Latest Contact Info) Description 08/04/2015 11:49 AM EST - 08/04/2015 11:59 PM EST Hospital Encounter MRI at [facility] [place] [address] El Bernardo MD [facility] [place] [address] Malignant 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, unspecified [...] each 1 06/16/2014 estradiol (VAGIFEM) 10 mcg TabletIndications:[place] pause Place 1 tablet vaginally twice a [...] 11:00 AM EDT Office [place] [address] Josephine Espinosa MD [facility] [place] [address] documented as of this encounter Procedures Procedure [...] contrast enhancement curve analysis was performed, using Mozilla software. COMPARISON STUDIES: Compared and/or correlated with [...] mLs documented in this encounter Care Teams Floor Assembler Relationship Specialty Start Date End Date Michelle Silveira PA PCP - General 05/09/10 08/04/15 documented as of this encounter
--- OUTSIDE RECORDS SUMMARY | 2024-07-23 02:07 | XMS_ITS | Encounter Summary ---
Author Organization [facility] Address [facility] [place] [address] Care Team Providers Care Commutator Operator Name Role Phone Raoul Michelle MAY Primary Care Provider [phone] Reason for Visit * Consultation (Routine) - Closed Specialty Diagnoses / Procedures Referred By Mariah tate Referred To Contact Cardiology Diagnoses cardiomyopathy Neo Jeffrey MD [address] [address] [facility] Card[facility] [address] [place] [address] Referral ID Status Reason Start Date Expiration Date V isits Requested Visits Authorized [id number] Closed [facility] 05/04/2015 05/03/2016 1 1 Encounter Details Date Type Department Care Team (Late st Contact Info) Description 05/24/2015 10:00 AM EST Office Visit Cardiology at [address] [address] Jose Govea MD [facility] [place] [address] Cardiomyopathy Social History Tobacco Use [...] Office [place] [address] Josephine Espinosa MD [facility] [place] [address] documented as of this encounter Visit Diagnoses Diagnosis Cardiomyopathy Other primary cardiomyopathies documented in this encounter Care Teams Commutator Operator Relationship Specialty Start Date End Date Michelle Silveira PA PCP - General 05/09/10 08/04/15 documented as of this encounter
--- OUTSIDE RECORDS SUMMARY | 2024-07-23 02:07 | XMS_ITS | Encounter Summary ---
Author Organization [facility] [place] [address] Care Team Providers Care Time Study Technician Name Role Phone Cande Kincaid APRN Primary Care Provider [phone] Encounter Details Date Type Department Care Team (Late Contact Info) Description 12/22/2015 [place] [address] Trinidad Alvarado RN Social History Tobacco Use Types Packs/Day [...] Zyrtek when she is out in the [facility]. Rx pended to Dr Warren. Pt aware. documented in this encounter Plan of Treatment Upcoming Encounters Date Type Department Care Team (Late Contact Info) Description 09/03/2024 11:00 AM EDT Office [place] [address] Josephine Espinosa MD [facility] [place] [place] [address] documented as of this encounter Visit Diagnoses Not on filedocumented in this encounter Care Teams Time Study Technician Relationship Specialty Start Date End Date Cande Kincaid APRN PCP - General Family Medicine 12/13/15 05/21/16 documented as of this encounter
--- OUTSIDE RECORDS SUMMARY | 2024-07-23 02:07 | XMS_ITS | Encounter Summary ---
Author Organization [facility] Address [facility] [place] [address] Care Team Providers Care Raker Buffing Wheel Name Role Phone Robert Hummel MD Primary Care Provider [phone] Encounter Details Date Type Department Care Team (Late st Contact Info) Description 08/05/2015 3:00 PM EST Office Visit Hematology/Oncology at [address] [phone] El Bernardo MD [facility] [place] [address] Malignant 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, unspecified [...] with heterologous chondroid differentiation Tumor Grade: High Hmjatv-Ppuql-Cpqopdivmd Score: 9 Tubular Differentiation: 3 Mitotic Rate: [...] carcinoma: 4 Estrogen/Progestin receptors: ER immunoreactivity: Negative VA immunoreactivity: Negative HER2/yeyo expression by FISH: NEGATIVE FOR HER2/EYYO AMPLIFICATION H. s/p adjuvant chemotherapy (AC). Completed [...] same BRCA1 alteration found in her mother ([id number]). Prophylactic BSO 04/2013. Path - Right and left fallopian tubes and ovaries (bilateral salpingo-oophorectomy): No evidence of malignancy. 3. ASP NET PROGRAMMER History: The patient is G4, P3 with [...] 11:00 AM EDT Office [place] [address] Josephine Espinosa MD [facility] [place] [address] documented as of this encounter Results * [...] Lumbago documented in this encounter Care Teams Raker Buffing Wheel Relationship Specialty Start Date End Date Robert Hummel MD PCP - General General Internal Medicine 08/05/1511/16 documented as of this encounter
--- OUTSIDE RECORDS SUMMARY | 2024-07-23 02:07 | XMS_ITS | Encounter Summary ---
Author Organization [facility] [place] [address] Care Team Providers Care Software Quality Assurance Engineer Name Role Phone Raoul Michelle YADIRA Primary Care Provider [phone] Reason for Visit * Reason Comments Immunotherapy Encounter Details Date Type Department Care Team (Latest Contact Info) Description 04/14/2015 10:30 AM EDT Clinical Support Allergy at [facility] [place] [address] Allergic rhinitis due to pollen; Allergic rhinitis [...] 11:00 AM EDT Office [place] [address] Josephine Espinosa MD [facility] [place] [address] documented as of this encounter Visit Diagnoses Diagnosis Allergic rhinitis due to pollen Allergic rhinitis due to mold Allergic rhinitis due to dust mite documented in this encounter Care Teams Software Quality Assurance Engineer Relationship Specialty Start Date End Date Michelle Silveira PA PCP - General 05/09/10 08/04/15 documented as of this encounter
--- OUTSIDE RECORDS SUMMARY | 2024-07-23 02:07 | XMS_ITS | Encounter Summary ---
Author Organization [facility] [place] [address] Care Team Providers Care Automobile Glass Technician Name Role Phone Robert Hummel MD Primary Care Provider [phone] Reason for Visit * Reason Comments Immunotherapy Encounter Details Date Type Department Care Team (Latest Contact Info) Description 09/21/2015 1:00 PM EDT Clinical Support Allergy at [facility] [place] [address] Allergic rhinitis due to pollen; Allergic rhinitis [...] 11:00 AM EDT Office [place] [address] Josephine Espinosa MD [facility] [address] documented as of this encounter Visit Diagnoses Diagnosis Allergic rhinitis due to pollen Allergic rhinitis due to mold Allergic rhinitis due to dust mite documented in this encounter Care Teams Automobile Glass Technician Relationship Specialty Start Date End Date Robert Hummel MD PCP - General General Internal Medicine 08/05/1511/16 documented as of this encounter
--- OUTSIDE RECORDS SUMMARY | 2024-07-23 02:07 | XMS_ITS | Encounter Summary ---
Author Organization Formerly [facility] [place] [address] Care Team Providers Care Composite Assembler Name Role Phone Raoul Michelle YADIRA Primary Care Provider [phone] Reason for Visit * Reason Comments Established Encounter Details Date Type Department Care Team (Latest Contact Info) Description 04/27/2015 2:00 PM EST Office Visit [place] [address] Audelia Santos [address] [facility] [place] [address] Concern about sexually transmitted disease in female [...] 2:20 PM EST Division of Gynecologic [place] [address] Rebeca Hernández is a 54 y.o. 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 She has a hx of [...] daughter. 2 older children live nearby. 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 Patient Active Problem List Diagnosis Code ??? [...] tone, no visible/appreciable hemorrhoids. IMPRESSION/PLAN: Normal annual LADLE MECHANIC exam. Reviewed pap guidelines, d/t new sexual [...] 11:00 AM EDT Office Visit [place] [address] Josephine Espinosa MD [facility] [place] [address] documented as of this encounter Procedures Procedure Name Priority Date/Time Associated Diagnosis Comments LADLE MECHANIC CYTOLOGY INTERPRETATION Routine 04/27/2015 3:17 PM EST GC/CHLAMYDIA Routine 04/27/2015 3:17 PM EST Encounter for routine gynecological examination GC/CHLAM Routine 04/27/2015 3:17 PM EST Encounter for routine gynecological examination LADLE MECHANIC CYTOLOGY FINAL REPORT Routine 04/27/2015 3:17 PM EST CYTOPATHOLOGY GYNECOLOGICAL Routine 04/27/2015 3:17 PM EST Encounter for routine gynecological examination documented in this encounter Results * Neurocritical Care Physician Cytology Final Report (04/27/2015 3:17 PM EST) Neurocritical Care Physician Cytology Final Report The signing pathologist has (i) examined the relevant preparation(s) for the specimen(s) and (ii) rendered or confirmed the diagnosis(es). Accession Number: [id number] ?Location: . ? Neurocritical Care Physician Final DIAGNOSIS NORMAL Negative for Intraepithelial Lesion or Malignancy (NILM). 05/02/15 ?? Screened by: ??LMCarmella 05/02/15 ?? Verified by: ??Juvenal SEGAL(ASCP), Maria E Ramírez - Brick Catcher STATEMENT OF ADEQUACY Specimen submitted is satisfactory. Endocervical component present. CLINICAL INFORMATION HPV Option: ?Reflex HPV Preparation: ? Liquid based Pap Specimen Source: ? Cervical/Endocervic al LMP: ? na Hormones?: ? No Hysterectomy?: ? No ?: ? No ?: ? No I.U.D.?: ? No Pelvic Radiation: ?No Prior LADLE MECHANIC Therapy?: ?[facility]one Biopsy Hist Abnl Pap/Biopsy?: ?? Yes, history of previous abnormal Pap Hist of HPV Vaccine?: ?No Hist of Smoking?: ?No Hist of CONY exposure?: ?? No ICD Diagnosis: ? Z12.4 Encounter for screening for malignant neoplasm of cervix Clinical Data, Significant Therapy and Clinical Impression: ?remote hx of abnormal pap, This Pap Test has been evaluated with the assistance of the hopscoutPrep Pap Test Imaging System. Note: The Pap test is a screening test for cervical cancer with an inherent false-negative rate dependent upon several variables. ??For further information please contact the [facility]. Reference: ??Nishi CS. ??Farm Operations Technical Director of Pap Smear Results. ??In: ??Julio Cesar BS, Misael HH, ed. ??The Pap Smear. ??[place]: ??Jerad, 2002: ??71-77. [facility] 04/27/2015 3:17 PM EST Audelia Santos APRN PATHOLOGY/CYTOLO GY ORDERABLES Performing Organization Address [facility] de Phone Number [facility] * LADLE MECHANIC Cytology Interpretation (04/27/2015 3:17 PM EST) Neurocritical Care Physician Cytology Interpretation NILM [facility] Comment:Neurocritical Care Physician Cytology Final R eport Endocervical Component Present [facility] AP Specimen 04/27/2015 3:17 PM EST 04/27/2015 7:19 PM EST Audelia Santos APRN PATHOLOGY/CYTOLO GY ORDERABLES Performing Organization Address [facility] de Phone Number [facility] * GC/Chlam (04/27/2015 3:17 PM EST) GC Gene Amp Negative Negative [facility] Comment: The only FDA approved specimen types for this assay are cervix, vagina, urethra and urine. ??The sensitivity and specificity of the assay for other specimen types has not been determined. GC Source Cervical [facility] Chlamydia Gene Amp Negative Negative [facility] Comment: The only FDA approved specimen types for this assay are cervix, vagina, urethra and urine. ??The sensitivity and specificity of the assay for other specimen types has not been determined. Chlm Source Cervical [facility] Specimen of unknown material (specimen) 04/27/2015 3:17 PM EST 04/27/2015 7:51 PM EST Narrative Resulting Agency Comment Spec In Lab Carly Solano MD MICROBIOLOGY - GENER AL ORDERABLES [facility] * Cytopathology Gynecological (04/27/2015 3:17 PM EST) AP Specimen 04/27/2015 3:17 PM EST 04/27/2015 3:17 PM EST Narrative [facility] - 04/27/2015 3:17 PM EST Specimen requisition ordered. ??Separate Pathology report to follow Carly Solano MD PATHOLOGY/CYTOLOGY O RDERABLES [facility] documented in this encounter Visit Diagnoses Diagnosis Concern about sexually transmitted disease in female without diagnosis- Primary Person with feared complaint in whom no diagnosis was made Encounter for routine gynecological examination Routine gynecological examination Menopause Asymptomatic postmenopausal status (age-related) (natural) documented in this encounter Care Teams Composite Assembler Relationship Specialty Start Date End Date Michelle Silveira PA PCP - General 05/09/10 08/04/15 documented as of this encounter
--- OUTSIDE RECORDS SUMMARY | 2024-07-23 02:07 | XMS_ITS | Encounter Summary ---
Author Organization [facility] Address [facility] [place] [address] Care Team Providers Care Manager Case Management Name Role Phone Robert Hummel MD Primary Care Provider [phone] Encounter Details Date Type Department Care Team (Late st Contact Info) Description 10/27/2015 Telephone Allergy at [facility] [place] [phone] Trinidad Alvarado, RN Social History Tobacco Use [...] Miscellaneous Notes * Telephone Encounter - Trinidad Alvarado, RN - 10/27/2015 3:23 PM EDT 1530: Pt called allergy dept. Received Allergy shots today. Driving home to [facility] felt confused, funny. Still feels like [...] EDT Office [place] [address] Josephine Espinosa MD [facility] [place] [address] documented as of this encounter Visit Diagnoses Not on filedocumented in this encounter Care Teams Manager Case Management Relationship Specialty Start Date End Date Robert Hummel MD PCP - General General Internal Medicine 08/05/1511/16 documented as of this encounter
--- OUTSIDE RECORDS SUMMARY | 2024-07-23 02:07 | XMS_ITS | Encounter Summary ---
Author Organization [facility] [place] [address] Care Team Providers Care Data Officer Name Role Phone Raoul Michelle YADIRA Primary Care Provider [phone] Reason for Visit * Reason Comments Immunotherapy Encounter Details Date Type Department Care Team (Latest Contact Info) Description 04/27/2015 11:00 AM EST Clinical Support Allergy at [facility] [place] [place] [address] Allergic rhinitis due to pollen; Allergic rhinitis [...] 11:00 AM EDT Office [place] [address] Josephine Espinosa MD [facility] [place] [address] documented as of this encounter Procedures Procedure [...] mite documented in this encounter Care Teams Data Officer Relationship Specialty Start Date End Date Michelle Silveira PA PCP - General 05/09/10 08/04/15 documented as of this encounter
--- OUTSIDE RECORDS SUMMARY | 2024-07-23 02:07 | XMS_ITS | Encounter Summary ---
Author Organization [facility] [place] [address] Care Team Providers Care Horticultural Specialty Grower Inside Name Role Phone Robert Hummel MD Primary Care Provider [phone] Reason for Visit * Reason Comments Immunotherapy Encounter Details Date Type Department Care Team (Latest Contact Info) Description 10/27/2015 10:15 AM EDT Clinical Support Allergy at [facility] [place] [place] [address] Allergic rhinitis due to pollen; Allergic rhinitis [...] 11:00 AM EDT Office [place] [address] Josephine Espinosa MD [facility] [place] [address] documented as of this encounter Visit Diagnoses Diagnosis Allergic rhinitis due to pollen 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
--- OUTSIDE RECORDS SUMMARY | 2024-07-23 02:07 | XMS_ITS | Encounter Summary ---
Author Organization Formerly [facility] Address [facility] [place] [address] Care Team Providers Care Agency Recruiter Name Role Phone Robert Hummel MD Primary Care Provider Reason for Visit * Reason Onset Date Comments Medication Refill 09/28/2015 Encounter Details Date Type Department Care Team (Late st Contact Info) Description 09/28/2015 [place] [address] Queenie Warren MD Social History Tobacco Use [...] 11:00 AM EDT Office [place] [address] Josephine Espinosa MD [facility] [place] [address] documented as of this encounter Visit Diagnoses Not on filedocumented in this encounter Care Teams Agency Recruiter Relationship Specialty Start Date End Date Robert Hummel MD PCP - General General Internal Medicine 08/05/15/2 12/30 documented as of this encounter
--- OUTSIDE RECORDS SUMMARY | 2024-07-23 02:07 | XMS_ITS | Encounter Summary ---
Author Organization [facility] Address [facility] [place] [address] Care Team Providers Care Objective C Developer Name Role Phone Robert Hummel MD Primary Care Provider [phone] Encounter Details Date Type Department Care Team (Late st Contact Info) Description 08/26/2015 3:00 PM EST Office Visit Hematology/Oncology at [address] [phone] El Bernardo MD [facility] [place] [address] Malignant 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, unspecified [...] with heterologous chondroid differentiation Tumor Grade: High Midmsx-Xlghp-Btpwsdxhvf Score: 9 Tubular Differentiation: 3 Mitotic Rate: [...] same BRCA1 alteration found in her mother (P9728T). Prophylactic BSO 04/2013. Path - Right and left fallopian tubes and ovaries (bilateral salpingo-oophorectomy): No evidence of malignancy. 3. 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: The patient is G4, P3 with [...] 11:00 AM EDT Office [place] [address] Josephine Espinosa MD [facility] [place] [address] documented as of this encounter Visit Diagnoses Diagnosis Malignant 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, unspecified site of breast BRCA positive Genetic susceptibility to malignant neoplasm of breast Abnormal magnetic resonance imaging of right breast documented in this encounter Care Teams Objective C Developer Relationship Specialty Start Date End Date Robert Hummel MD PCP - General General Internal Medicine 08/05/1511/16 documented as of this encounter
--- OUTSIDE RECORDS SUMMARY | 2024-07-23 02:07 | XMS_ITS | Encounter Summary ---
Author Organization Formerly [facility] Address [facility] [place] [address] Care Team Providers Care Maintenance Pipefitter Name Role Phone Robert Hummel MD Primary Care Provider [phone] Reason for Visit * Reason Onset Date Comments Other 05/23/2016 Echo Results Encounter Details Date Type Department Care Team (Late st Contact Info) Description 05/23/2016 Telephone Cardiology at [address] [address] Jose Govea MD [facility] [place] [address] Other (Echo Results) Social History Tobacco Use [...] be on medication due to the results. [phone] Thank you, Irena documented in this encounter Plan of Treatment Upcoming Encounters Date Type Department Care Team (Late st Contact Info) Description 09/03/2024 11:00 AM EDT Office Visit [place] [phone] Josephine Espinosa MD [facility] [place] [address] documented as of this encounter Visit Diagnoses Not on filedocumented in this encounter Care Teams Maintenance Pipefitter Relationship Specialty Start Date End Date Robert Hummel MD PCP - General General Internal Medicine 05/22/1609/16 documented as of this encounter
--- OUTSIDE RECORDS SUMMARY | 2024-07-23 02:07 | XMS_ITS | Encounter Summary ---
Author Organization [facility] Address [facility] [place] [address] Care Team Providers Care Career Services Assistant Name Role Phone Michelle Silveira Primary Care Provider [phone] Encounter Details Date Type Department Care Team (Late Contact Info) Description 06/28/2015 Orders Only Hematology/Oncology at [address] [phone] El Bernardo MD [facility] [place] [address] Social History Tobacco Use Types Packs/Day Years [...] 11:00 AM EDT Office [place] [address] Josephine Espinosa MD [facility] [place] [address] documented as of this encounter Visit Diagnoses Not on filedocumented in this encounter Care Teams Career Services Assistant Relationship Specialty Start Date End Date Michelle Silveira PA PCP - General 05/09/10 08/04/15 documented as of this encounter
--- OUTSIDE RECORDS SUMMARY | 2024-07-23 02:07 | XMS_ITS | Encounter Summary ---
Author Organization [facility] Address [facility] [place] [address] Care Team Providers Care Production Line Welder Name Role Phone Robert Hummel MD Primary Care Provider [phone] Reason for Referral * Diagnostic Test (Routine) - Closed Specialty Diagnoses / Procedures Referred By Mariah tate Referred To Contact Cardiology Diagnoses Cardiomyopathy Procedures Echocardiogram Transthoracic(Leb) Jose Govea MD [facility] [place] [address] [facility] [place] [address] Referral ID Status Reason Start Date Expiration Date V isits Requested Visits Authorized [id number] Closed Specialty Service Requested 05/22/2016 05/22/2017 1 1 Encounter Details Date Type Department Care Team (Late st Contact Info) Description 05/22/2016 10:40 AM EST Office Visit Cardiology at [address] [address] Jose Govea MD [facility] [place] [address] Cardiomyopathy Social History Tobacco Use Types Packs/Day [...] 11:00 AM EDT Office Visit [place] [address] Josephine Espinosa MD [facility] [place] [address] documented as of this encounter Results * ECHO COMPLETE (05/22/2016 2:15 PM EST) EF 65 HEARTLAB SYSTEM Anatomical Region Laterality Modality Other 05/22/2016 Narrative 05/22/2016 2:45 PM EST Procedure: ?Transthoracic Echocardiogram Patient: ?BRANDON Farooq ?(Age): 1960(55y) Med Rec#: ? [id number] ?Sex: ?F ? [place] Loc: ? [facility] ?Ht / Wt: ??165(cm)/83(kg) Pt. Loc: ?Echo Lab ?BSA: ?1.9 Study Date: ?? 05/22/2016 ?Pt. Type: Outpatient Tape: ? Referring: Jose Govea ([id number]) Reading: Lloyd Syed ([id number]) Clinical Programmer: Saundra Atkins [facility] Diagnosis: *ICD-10-PCS Neoplasm of unspecified behavior of unspecified site (D49.9) *Neoplasm of Uncertain Behavior of other Specified Sites (238.8) CPT Codes: *Echo Full (33505) *Spectral Doppler (28741) *Color Doppler (67202) Indication: ?? Cardiomyopathy Rhythm: ? Sinus BP: [...] E-wave Vmax ?0.6 ?m/sec ? MV deceleration maii860.9 ?msec ? MV A-wave Vmax ?0.5 ?m/sec [...] ? Mid-Inferior ?Normal ? Mid-Inferoseptal ?Normal ? [place]-Septal ? Normal ? [place]-Anterior ? Normal ? [place]-Lateral ?Normal ? [place]-Inferior ? Normal ? [place]-Tip ?Normal ? This report has been electronically signed by: Lloyd Syed MD ? 05/22/2016 14:44:45 Images reviewed and interpretation verified [facility] Procedure Note Lloyd Syed MD - 05/22/2016 Procedure: Transthoracic Echocardiogram Patient: BRANDON HERRERA(Age): 1960(55y) Med Rec#: [id number] Sex: F Site Loc: [facility] Ht / Wt: 165(cm)/83(kg) Pt. Loc: Echo Lab BSA: 1.9 Study Date: 05/22/2016 Pt. Type: Outpatient Tape: Referring: Jose Govea ([id number]) Reading: Lloyd Syed ([id number]) Clinical Programmer: Saundra Atkins [facility] Diagnosis: *ICD-10-PCS Neoplasm of unspecified behavior of unspecified site (D49.9) *Neoplasm of Uncertain Behavior of other Specified Sites (238.8) CPT Codes: *Echo Full (64622) *Spectral Doppler (47478) *Color Doppler (03294) Indication: Cardiomyopathy Rhythm: Sinus BP: 130/82 HR: [...] MV E-wave Vmax 0.6 m/sec MV deceleration bosr640.9 msec MV A-wave Vmax 0.5 m/sec MV [...] Normal Mid-Posterolateral Normal Mid-Inferior Normal Mid-Inferoseptal Normal [place]-Septal Normal [place]-Anterior Normal [place]-Lateral Normal [place]-Inferior Normal [place]-Tip Normal This report has been electronically signed by: Lloyd Syed MD 05/22/2016 14:44:45 Images reviewed and interpretation verified [facility] Jose Govea MD ECHO ORDERABLES documented in this encounter Visit Diagnoses Diagnosis Cardiomyopathy Other primary cardiomyopathies Cardiomyopathy Other primary cardiomyopathies documented in this encounter Care Teams Production Line Welder Relationship Specialty Start Date End Date Robert Hummel MD PCP - General General Internal Medicine 05/22/1609/16 documented as of this encounter
--- OUTSIDE RECORDS SUMMARY | 2024-07-23 02:07 | XMS_ITS | Encounter Summary ---
Author Organization [facility] Address [facility] Bas[address] [place] [id number] Care Team Providers Care Swimming Teacher Name Role Phone Elizabeth Kincaidlouann Rios APRN Primary Care Provider [phone] Reason for Referral * Consultation (Routine) - Closed Specialty Diagnoses / Procedures Referred By Mariah tate Referred To Contact Dermatology Diagnoses Malignant 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, unspecified site of breast Bettie Downing APRN [facility] DR HEMATOLOGY/[place] [address] Miles Bowman MD [address] [place] [address] RD, [place] [address] Referral ID Status Reason Start Date Expiration Date V isits Requested Visits Authorized [id number] Closed Consult, Test & Treat 04/12/2016 10/09/2016 1 1 Encounter Details Date Type Department Care Team (Late st Contact Info) Description 04/12/2016 8:45 AM EDT Office Visit Hematology/Oncology at [address] [phone] Bettie Downing APRN Malignant neoplasm of left [...] this encounter Progress Notes * Bettie Downing, CHEMICAL DEPENDENCY NURSE - 04/12/2016 8:45 AM EDT Subjective: Patient [...] with heterologous chondroid differentiation Tumor Grade: High Aceiof-Cubwt-Dgqidzgutb Score: 9 Tubular Differentiation: 3 Mitotic Rate: [...] same BRCA1 alteration found in her mother (N0563E). Prophylactic BSO 04/2013. Path - Right and left fallopian tubes and ovaries (bilateral salpingo-oophorectomy): No evidence of malignancy. 3. EMBOSSER APPRENTICE History: The patient is G4, P3 with [...] an insect bite from a trip to [place] a month ago which is on her [...] chigger bite acquired on a trip to [place] a month ago. ? Associated infection so [...] change her mind. Bettie Downing, MSN, MANAGER POLICY, AOCN Hematology/Oncology Nurse Practitioner [place], [place] [phone] documented in this encounter Plan of Treatment Upcoming Encounters Date Type Department Care Team (Late st Contact Info) Description 09/03/2024 11:00 AM EDT Office [place] [address] Josephine Espinosa MD [facility] [place] [address] Scheduled Referrals Name Type Priority Associated Diagnoses Orde r Schedule Referral to Dermatology Outpatient Referral Routine Malignant 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, unspecified site of breast Ordered: 04/12/2016 documented as of this encounter Visit Diagnoses Diagnosis Malignant 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, unspecified site of breast documented in this encounter Care Teams Swimming Teacher Relationship Specialty Start Date End Date Cande Kincaid APRN PCP - General Family Medicine 12/13/15 05/21/16 documented as of this encounter
--- OUTSIDE RECORDS SUMMARY | 2024-07-23 02:07 | XMS_ITS | Encounter Summary ---
Author Organization [facility] [place] [address] Care Team Providers Care Order Clerk Name Role Phone Michelle Silveira Primary Care Provider [phone] Reason for Referral * Diagnostic Test (Routine) - Closed Specialty Diagnoses / Procedures Referred By Mariah tate Referred To Contact Radiology Diagnoses Malignant 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, unspecified site of breast BRCA1 positive Procedures MRI Breast Bilateral W/WO Contrast El Bernardo MD [facility] [place] [address] [place] [address] Referral ID Status Reason Start Date Expiration Date V isits Requested Visits Authorized [id number] Closed Specialty Service Requested 06/29/2015 06/28/2016 1 1 Encounter Details Date Type Department Care Team (Late st Contact Info) Description 06/23/2015 Orders Only H[place]ology [place] [address] El Bernardo MD [facility] [place] [address] Malignant 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, unspecified [...] 11:00 AM EDT Office [place] [address] Josephine Espinosa MD [facility] [place] [address] documented as of this encounter Results * [...] contrast enhancement curve analysis was performed, using Plyce software. COMPARISON STUDIES: Compared and/or correlated with [...] chest wall or skin. El Bernardo MD [facility] MRI ORDERABLES documented in this encounter Visit Diagnoses Diagnosis Malignant 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, unspecified site of breast BRCA1 positive Genetic susceptibility to malignant neoplasm of breast Malignant 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, unspecified site of breast BRCA1 positive Genetic susceptibility to malignant neoplasm of breast documented in this encounter Care Teams Order Clerk Relationship Specialty Start Date End Date Michelle Silveira PA PCP - General 05/09/10 08/04/15 documented as of this encounter
--- OUTSIDE RECORDS SUMMARY | 2024-07-23 02:07 | XMS_ITS | Encounter Summary ---
Author Organization [facility] [place] [address] Care Team Providers Care Registered Occupational Therapist Name Role Phone Raoul Michelle YADIRA Primary Care Provider [phone] Reason for Visit * Reason Comments Immunotherapy Encounter Details Date Type Department Care Team (Latest Contact Info) Description 03/30/2015 2:15 PM EDT Clinical Support Allergy at [facility] [place] [address] Allergic rhinitis due to pollen; Allergic rhinitis [...] 11:00 AM EDT Office [place] [address] Josephine Espinosa MD [facility] [place] [address] documented as of this encounter Visit Diagnoses Diagnosis Allergic rhinitis due to pollen 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
--- OUTSIDE RECORDS SUMMARY | 2024-07-23 02:08 | XMS_ITS | Encounter Summary ---
Author Organization [facility] Address [facility] [place] [address] Care Team Providers Care Adjunct Writing Instructor Name Role Phone Raoul Michelle MAY Primary Care Provider [phone] Reason for Visit * Reason Comments Immunotherapy Encounter Details Date Type Department Care Team ([facility] st Contact Info) Description 07/22/2014 11:45 AM EST Office Visit Allergy at [facility] [place] [address] ALLERGY, INJECTION Allergic rhinitis due to pollen; [...] 11:00 AM EDT Office [place] [address] Josephine Espinosa MD [facility] [place] [address] documented as of this encounter Visit Diagnoses Diagnosis Allergic rhinitis due to pollen Allergic rhinitis, cause unspecified documented in this encounter Care Teams Adjunct Writing Instructor Relationship Specialty Start Date End Date Michelle Silveira PA PCP - General 05/09/10 08/04/15 documented as of this encounter
--- OUTSIDE RECORDS SUMMARY | 2024-07-23 02:08 | XMS_ITS | Encounter Summary ---
Author Organization [facility] Address [facility] [place] [address] Care Team Providers Care Neurology Specialist Name Role Phone Michelle Silveira Primary Care Provider [phone] Encounter Details Date Type Department Care Team (Late st Contact Info) Description 12/17/2013 3:15 PM EDT Follow-Up Hematology Oncology at [address] [address] Bettie Downing APRN Breast cancer, left; BRCA1 positive; Cardiomyopathy; Depression; [...] in this encounter Progress Notes * Bettie Downing ASSEMBLY OPERATOR - 12/17/2013 3:42 PM EDT Images from [...] Depression ??? Chest pain A. Stress test [facility] 06/28: exercised to 10.1 [...] 30 tablet 12 ??? NASONEX 50 mcg/actuation [place] 2 sprays by Nasal route daily. 17 [...] a mammogram. Plan for CXR here at [facility] today and for mamm[facility] to [facility] since her previous studies have been down there. Will fwup by phone next week. Bettie Downing, MSN, MOBILITY SCOOTER REPAIRER, AOCN Hematology/Oncology Nurse Practitioner [place], [place] [phone] documented in this encounter Plan of Treatment Upcoming Encounters Date Type Department Care Team (Late st Contact Info) Description 09/03/2024 11:00 AM EDT Office Visit [place] [address] Josephine Espinosa MD 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
--- OUTSIDE RECORDS SUMMARY | 2024-07-23 02:08 | XMS_ITS | Encounter Summary ---
Author Organization [facility] [place] [address] Care Team Providers Care Cinder Crew Worker Name Role Phone RaoulMichelle YADIRA Primary Care Provider Reason for Visit * Reason Comments Immunotherapy Encounter Details Date Type Department Care Team ([facility] Contact Info) Description 11/04/2014 9:30 AM EDT Office Visit Allergy at [facility] [place] [address] ALLERGY, INJECTION Allergic rhinitis due to pollen; [...] 11/05/2014 11:42 AM EDT Reviewed documentation of Ankita Guzmán. Recommend decreasing AIT- all three shots [...] 11:00 AM EDT Office [place] [address] Josephine Espinosa MD [facility] [place] [address] documented as of this encounter Visit Diagnoses Diagnosis Allergic rhinitis due to pollen Allergic rhinitis, cause unspecified documented in this encounter Care Teams Cinder Crew Worker Relationship Specialty Start Date End Date Michelle Silveira PA PCP - General 05/09/10 08/04/15 documented as of this encounter
--- OUTSIDE RECORDS SUMMARY | 2024-07-23 02:08 | XMS_ITS | Encounter Summary ---
Author Organization [facility] Address [facility] [place] [address] Care Team Providers Care Stumper Feller Name Role Phone Raoul Michelle MAY Primary Care Provider [phone] Reason for Visit * Reason Comments Immunotherapy Encounter Details Date Type Department Care Team ([facility] st Contact Info) Description 07/14/2014 10:15 AM EST Office Visit Allergy at [facility] [place] [address] ALLERGY, INJECTION Allergic rhinitis due to pollen; [...] 11:00 AM EDT Office [place] [address] Josephine Espinosa MD [facility] [place] [address] documented as of this encounter Visit Diagnoses Diagnosis Allergic rhinitis due to pollen Allergic rhinitis, cause unspecified documented in this encounter Care Teams Stumper Feller Relationship Specialty Start Date End Date Michelle Silveira PA PCP - General 05/09/10 08/04/15 documented as of this encounter
--- OUTSIDE RECORDS SUMMARY | 2024-07-23 02:08 | XMS_ITS | Encounter Summary ---
Author Organization [facility] Address [facility] [place] [address] Care Team Providers Care Human Resources Services Specialist Name Role Phone Raoul Micehlle YADIRA Primary Care Provider [phone] Encounter Details Date Type Department Care Team (Latest Contact Info) Description 04/28/2014 11:17 AM EST - 04/28/2014 11:59 PM EST Hospital Encounter Pulmonology at [facility] [place] [address] SCHEDULE 1, PFT Environmental allergies; Dyspnea Discharge [...] 11/26/2013 12/01/2014 estradiol (VAGIFEM) 10 mcg vaginal tabletIndications:[place] [address] 1 tablet vaginally twice a [...] 11:00 AM EDT Office [place] [address] Josephine Espinosa MD [facility] [place] [address] documented as of this encounter Procedures Procedure [...] abnormality documented in this encounter Care Teams Human Resources Services Specialist Relationship Specialty Start Date End Date Michelle Silveira PA PCP - General 05/09/10 08/04/15 documented as of this encounter
--- OUTSIDE RECORDS SUMMARY | 2024-07-23 02:08 | XMS_ITS | Encounter Summary ---
Author Organization [facility] Address [facility] [address] Care Team Providers Care Compressor Operator Name Role Phone Raoul Michelle YADIRA Primary Care Provider [phone] Reason for Visit * Reason Comments Immunotherapy Encounter Details Date Type Department Care Team ([facility] st Contact Info) Description 01/26/2015 10:30 AM EDT Office Visit Allergy at [facility] [place] [address] ALLERGY, INJECTION Allergic rhinitis due to pollen; [...] 11:00 AM EDT Office [place] [address] Josephine Espinosa MD [facility] [place] [address] documented as of this encounter Visit Diagnoses Diagnosis Allergic rhinitis due to pollen Allergic rhinitis, cause unspecified documented in this encounter Care Teams Compressor Operator Relationship Specialty Start Date End Date Michelle Silveira PA PCP - General 05/09/10 08/04/15 documented as of this encounter
--- OUTSIDE RECORDS SUMMARY | 2024-07-23 02:08 | XMS_ITS | Encounter Summary ---
Author Organization [facility] [place] [address] Care Team Providers Care Software Development Intern Name Role Phone RaoulMichelle YADIRA Primary Care Provider [phone] Reason for Visit * Reason Comments Allergies Wants to restart all ergy shots Encounter Details Date Type Department Care Team ([facility] st Contact Info) Description 11/26/2013 12:45 PM EDT Follow-Up Allergy at [facility] [place] [address] Queenie Warren MD Conjunctivitis, allergic (Primary Dx); Chronic allergic rhinitis; [...] encasings, pillow and mattress ( ie From [employer]; [facility], [employer], [employer], [employer], [employer]) 2. Wash bedding in hot water (no [...] ADNEXA performed by Carly Chamberlain MD at [facility] ??? Tonsillectomy ??? Adenoidectomy Family [...] tablet Refill: 12 ??? NASONEX 50 mcg/actuation [place] sprays by Nasal route daily. Dispense: [...] 11:00 AM EDT Office Visit [place] [address] Josephine Espinosa MD [facility] [place] [address] documented as of this encounter Visit Diagnoses Diagnosis Conjunctivitis, allergic- Primary Other chronic allergic conjunctivitis Chronic allergic rhinitis Allergic rhinitis, cause unspecified Environmental allergies Allergic rhinitis, cause unspecified documented in this encounter Care Teams Software Development Intern Relationship Specialty Start Date End Date Michelle Silveira PA PCP - General 05/09/10 08/04/15 documented as of this encounter
--- OUTSIDE RECORDS SUMMARY | 2024-07-23 02:08 | XMS_ITS | Encounter Summary ---
Author Organization [facility] [place] [address] Care Team Providers Care Gliding Pilot Instructor Name Role Phone Raoul Michelle YADIRA Primary Care Provider [phone] Reason for Visit * Reason Onset Date Comments Other 09/08/2014 concern that all ergy shots caused lump under left axilla Encounter Details Date Type Department Care Team (Late st Contact Info) Description 09/08/2014 Telephone [address] [address] Wendy Brady RN Other (concern [...] be possible. Encouraged her to have her disability specialist contact Dr. Bernardo directly should he/she have any further specific questions for him. * Telephone Encounter - Wendy Brady RN - 09/08/2014 2:16 PM EDT Phone call from Rebeca reporting that she is getting allergy injections weekly at [facility]. She expresses concern that when she got [...] breast cancer. She states that her current disability specialist, whom is covering for Dr. Warren, had her sign release of information so that he could speak to Dr. Bernardo if need be. Message forwarded to Dr. Bernardo for his review. documented in this encounter Plan of Treatment Upcoming Encounters Date Type Department Care Team (Late st Contact Info) Description 09/03/2024 11:00 AM EDT Office Visit [place] [address] Josephine Espinosa MD [facility] [place] [address] documented as of this encounter Visit Diagnoses Not on filedocumented in this encounter Care Teams Gliding Pilot Instructor Relationship Specialty Start Date End Date Michelle Silveira PA PCP - General 05/09/10 08/04/15 documented as of this encounter
--- OUTSIDE RECORDS SUMMARY | 2024-07-23 02:08 | XMS_ITS | Encounter Summary ---
Author Organization [facility] Address [facility] [place] [address] Care Team Providers Care Psychology Instructor Name Role Phone Michelle Silveira YADIRA Primary Care Provider [phone] Reason for Visit * Reason Comments Other Encounter Details Date Type Department Care Team ([facility] st Contact Info) Description 07/08/2014 Telephone Allergy at [facility] [place] [place] [address] Queenie Warren MD Social History Tobacco Use [...] - 07/08/2014 3:21 PM EST Spoke w/Rebeca Hrenández to inform her that IgE levels to cat & dog were negative therefore she will not have AIT to cat & dog. She was alos informed that her serum has arrived at [facility] & will be available for AIT as early as 07/14/2014. She expressed delight with this news & knows thatshe can call with any concerns. The call was then forwarded to scheduling nursing secretary for appt for AIT injections. * Telephone Encounter - Marta Lr RN - 07/08/2014 3:16 PM EST ----- Message from Queenie Warren MD sent at 06/22/2014 9:06 PM EST [...] 11:00 AM EDT Office Visit [place] [address] Josephine Espinosa MD [facility] [place] [address] documented as of this encounter Visit Diagnoses Not on filedocumented in this encounter Care Teams Psychology Instructor Relationship Specialty Start Date End Date Michelle Silveira PA PCP - General 05/09/10 08/04/15 documented as of this encounter
--- OUTSIDE RECORDS SUMMARY | 2024-07-23 02:08 | XMS_ITS | Encounter Summary ---
Author Organization [facility] [place] [address] Care Team Providers Care Imagery Intelligence Name Role Phone Michelle Silveira YADIRA Primary Care Provider [phone] Reason for Visit * Reason Onset Date Comments Other 07/14/2014 EXTRACT BILLING Encounter Details Date Type Department Care Team ([facility] st Contact Info) Description 07/14/2014 Telephone Allergy at [facility] [place] [address] Ankita Guzmán LPN Other (EXTRACT BILLING) Social [...] 11:00 AM EDT Office [place] [address] Josephine Espinosa MD [facility] [place] [address] documented as of this encounter Visit Diagnoses Not on filedocumented in this encounter Care Teams Imagery Intelligence Relationship Specialty Start Date End Date Michelle Silveira PA PCP - General 05/09/10 08/04/15 documented as of this encounter
--- OUTSIDE RECORDS SUMMARY | 2024-07-23 02:08 | XMS_ITS | Encounter Summary ---
Author Organization [facility] [place] [address] Care Team Providers Care Survey Associate Name Role Phone Raoul Michelle YADIRA Primary Care Provider [phone] Reason for Visit * Reason Comments Immunotherapy Encounter Details Date Type Department Care Team (Latest Contact Info) Description 03/17/2015 10:30 AM EDT Clinical Support Allergy at [facility] [place] [address] Allergic rhinitis due to pollen; Allergic rhinitis [...] 11:00 AM EDT Office [place] [address] Josephine Espinosa MD [facility] [place] [address] documented as of this encounter Visit Diagnoses Diagnosis Allergic rhinitis due to pollen Allergic rhinitis due to mold Allergic rhinitis due to dust mite documented in this encounter Care Teams Survey Associate Relationship Specialty Start Date End Date Michelle Silveira PA PCP - General 05/09/10 08/04/15 documented as of this encounter
--- OUTSIDE RECORDS SUMMARY | 2024-07-23 02:08 | XMS_ITS | Encounter Summary ---
Author Organization [facility] [place] [address] Care Team Providers Care Nailing Machine Operator Automatic Name Role Phone Michelle Silveira Primary Care Provider [phone] Reason for Visit * Reason Comments Immunotherapy Encounter Details Date Type Department Care Team ([facility] st Contact Info) Description 08/11/2014 10:15 AM EST Office Visit Allergy at [facility] [place] [address] ALLERGY, INJECTION Allergic rhinitis due to pollen; [...] 11:00 AM EDT Office Visit [place] [address] Josephine Espinosa MD [facility] [place] [address] documented as of this encounter Visit Diagnoses Diagnosis Allergic rhinitis due to pollen Allergic rhinitis, cause unspecified documented in this encounter Care Teams Nailing Machine Operator Automatic Relationship Specialty Start Date End Date Michelle Silveira PA PCP - General 05/09/10 08/04/15 documented as of this encounter
--- OUTSIDE RECORDS SUMMARY | 2024-07-23 02:08 | XMS_ITS | Encounter Summary ---
Author Organization [facility] Address [facility] [place] [address] Care Team Providers Care Keeper Helper Name Role Phone Raoul Michelle YADIRA Primary Care Provider [phone] Reason for Visit * Reason Comments Immunotherapy Encounter Details Date Type Department Care Team ([facility] st Contact Info) Description 02/23/2015 1:15 PM EDT Office Visit Allergy at [facility] [place] [address] ALLERGY, INJECTION Allergy to mites; Allergy to [...] 11:00 AM EDT Office [place] [address] [facility] [place] [address] documented as of this encounter Visit Diagnoses Diagnosis Allergy to mites Allergy, unspecified not elsewhere classified Allergy to mold Allergy to pollen Allergic rhinitis due to pollen documented in this encounter Care Teams Keeper Helper Relationship Specialty Start Date End Date Michelle Silveira PA PCP - General 05/09/10 08/04/15 documented as of this encounter
--- OUTSIDE RECORDS SUMMARY | 2024-07-23 02:08 | XMS_ITS | Encounter Summary ---
Author Organization [facility] Address [facility] [place] [address] Care Team Providers Care Cellars Supervisor Name Role Phone Raoul Michelle MAY Primary Care Provider [phone] Reason for Visit * Reason Comments Immunotherapy Encounter Details Date Type Department Care Team ([facility] st Contact Info) Description 09/01/2014 10:30 AM EDT Office Visit Allergy at [facility] [place] [address] ALLERGY, INJECTION Allergic rhinitis due to pollen; [...] 11:00 AM EDT Office [place] [address] Josephine Espinosa MD [facility] [place] [address] documented as of this encounter Visit Diagnoses Diagnosis Allergic rhinitis due to pollen Allergic rhinitis, cause unspecified documented in this encounter Care Teams Cellars Supervisor Relationship Specialty Start Date End Date Michelle Silveira PA PCP - General 05/09/10 08/04/15 documented as of this encounter
--- OUTSIDE RECORDS SUMMARY | 2024-07-23 02:08 | XMS_ITS | Encounter Summary ---
Author Organization [facility] [place] [address] Care Team Providers Care Cattle Feeder Name Role Phone Michelle Silveira YADIRA Primary Care Provider [phone] Encounter Details Date Type Department Care Team (Late st Contact Info) Description 06/25/2014 Orders Only Allergy at [facility] [place] [address] Queenie Warren MD Social History Tobacco Use [...] AM EST IMMUNOTHERAPY PRESCRIPTION AND PREPARATION NOTE [facility]; Allergy Clinic NAME: Rebeca Farooq Edgar : 1960 INSTRUCTIONS (REVIEW WITH PATIENT BEFORE [...] 11:00 AM EDT Office [place] [address] Josephine Espinosa MD [facility] [place] [address] documented as of this encounter Visit Diagnoses Not on filedocumented in this encounter Care Teams Cattle Feeder Relationship Specialty Start Date End Date Michelle Silveira PA PCP - General 05/09/10 08/04/15 documented as of this encounter
--- OUTSIDE RECORDS SUMMARY | 2024-07-23 02:08 | XMS_ITS | Encounter Summary ---
Author Organization [facility] [place] [address] Care Team Providers Care Chief Design Engineer Name Role Phone Michelle Silveira Primary Care Provider [phone] Reason for Visit * Reason Onset Date Comments Medication Refill 08/25/2013 Encounter Details Date Type Department Care Team (Late st Contact Info) Description 08/25/2013 Refill Gynecology [place] [address] Carly Solano MD [facility] [place] [address] Menopause (Primary Dx) Social History Tobacco Use [...] 11:00 AM EDT Office Visit [place] [address] Josephine Espinosa MD [facility] [place] [address] documented as of this encounter Visit Diagnoses Diagnosis Menopause- Primary Asymptomatic postmenopausal status (age-related) (natural) documented in this encounter Care Teams Chief Design Engineer Relationship Specialty Start Date End Date Michelle Silveria PA PCP - General 05/09/10 08/04/15 documented as of this encounter
--- OUTSIDE RECORDS SUMMARY | 2024-07-23 02:08 | XMS_ITS | Encounter Summary ---
Author Organization [facility] Address [facility] [place] [address] Care Team Providers Care School Principal Name Role Phone Raoul Michelle MAY Primary Care Provider [phone] Reason for Visit * Reason Comments Immunotherapy Encounter Details Date Type Department Care Team ([facility] st Contact Info) Description 10/27/2014 10:30 AM EDT Office Visit Allergy at [facility] [place] [address] ALLERGY, INJECTION Allergic rhinitis due to pollen; [...] 11:00 AM EDT Office [place] [address] Josephine Espinosa MD [facility] [place] [address] documented as of this encounter Visit Diagnoses Diagnosis Allergic rhinitis due to pollen Allergic rhinitis, cause unspecified documented in this encounter Care Teams School Principal Relationship Specialty Start Date End Date Michelle Silveira PA PCP - General 05/09/10 08/04/15 documented as of this encounter
--- OUTSIDE RECORDS SUMMARY | 2024-07-23 02:08 | XMS_ITS | Encounter Summary ---
Author Organization [facility] Address [facility] [place] [address] Care Team Providers Care Privacy Officer Name Role Phone Dena Alfonso APRN Primary Care Provider [phone] Reason for Visit * Reason Comments Medication Refill Encounter Details Date Type Department Care Team (Late st Contact Info) Description 09/11/2014 Refill [place] [id number] Carly Solano MD [facility] [place] [address] Social History Tobacco Use Types Packs/Day Years [...] 11:00 AM EDT Office [place] [address] Josephine Espinosa MD [facility] [place] [address] documented as of this encounter Visit Diagnoses Not on filedocumented in this encounter Care Teams Privacy Officer Relationship Specialty Start Date End Date Dena Alfonso APRN [address] [place] [address] PCP - General Geriatric Medicine 10/12/16 documented as of this encounter
--- OUTSIDE RECORDS SUMMARY | 2024-07-23 02:08 | XMS_ITS | Encounter Summary ---
Author Organization [facility] Address [facility] [place] [address] Care Team Providers Care Motor Coach Tour Operator Name Role Phone Raoul Michelle MAY Primary Care Provider [phone] Reason for Visit * Reason Comments Immunotherapy Encounter Details Date Type Department Care Team ([facility] st Contact Info) Description 07/28/2014 11:15 AM EST Office Visit Allergy at [facility] [place] [address] ALLERGY, INJECTION Allergic rhinitis due to pollen; [...] AM EDT Office Visit [place] [address] Josephine Espinosa MD [facility] [place] [address] documented as of this encounter Visit Diagnoses Diagnosis Allergic rhinitis due to pollen Allergic rhinitis, cause unspecified documented in this encounter Care Teams Motor Coach Tour Operator Relationship Specialty Start Date End Date Michelle Silveira PA PCP - General 05/09/10 08/04/15 documented as of this encounter
--- OUTSIDE RECORDS SUMMARY | 2024-07-23 02:08 | XMS_ITS | Encounter Summary ---
Author Organization [facility] Address [facility] [place] [address] Care Team Providers Care Regional Sales Engineer Name Role Phone Raoul Michelle MAY Primary Care Provider [phone] Reason for Visit * Reason Comments Immunotherapy Encounter Details Date Type Department Care Team ([facility] st Contact Info) Description 10/21/2014 10:00 AM EDT Office Visit Allergy at [facility] [place] [address] ALLERGY, INJECTION Allergic rhinitis due to pollen; [...] 11:00 AM EDT Office Visit [place] [address] Josephine Espinosa MD [facility] [place] [address] documented as of this encounter Visit Diagnoses Diagnosis Allergic rhinitis due to pollen Allergic rhinitis, cause unspecified documented in this encounter Care Teams Regional Sales Engineer Relationship Specialty Start Date End Date Michelle Silveira PA PCP - General 05/09/10 08/04/15 documented as of this encounter
--- OUTSIDE RECORDS SUMMARY | 2024-07-23 02:08 | XMS_ITS | Encounter Summary ---
Author Organization [facility] Address [facility] [place] [address] Care Team Providers Care Capacitor Repairer Name Role Phone Raoul Michelle YADIRA Primary Care Provider [phone] Reason for Visit * Reason Comments Immunotherapy Encounter Details Date Type Department Care Team ([facility] st Contact Info) Description 11/17/2014 11:00 AM EDT Office Visit Allergy at [facility] [place] [address] Allergic rhinitis due to pollen; Allergic rhinitis, [...] 11:00 AM EDT Office [place] [address] Josephine Espinosa MD [facility] [place] [address] documented as of this encounter Visit Diagnoses Diagnosis Allergic rhinitis due to pollen Allergic rhinitis, cause unspecified documented in this encounter Care Teams Capacitor Repairer Relationship Specialty Start Date End Date Michelle Silveira PA PCP - General 05/09/10 08/04/15 documented as of this encounter
--- OUTSIDE RECORDS SUMMARY | 2024-07-23 02:08 | XMS_ITS | Encounter Summary ---
Author Organization [facility] Address [facility] [place] [address] Care Team Providers Care Manager Payer Name Role Phone Michelle Silveira Primary Care Provider [phone] Reason for Visit * Reason Onset Date Comments Medication Refill 12/01/2014 Encounter Details Date Type Department Care Team (Late st Contact Info) Description 12/01/2014 [place] [address] Queenie Warren MD Social History Tobacco Use [...] 11:00 AM EDT Office [place] [address] Josephine Espinosa MD [facility] [place] [address] documented as of this encounter Visit Diagnoses Not on filedocumented in this encounter Care Teams Manager Payer Relationship Specialty Start Date End Date Michelle Silveira PA PCP - General 05/09/10 08/04/15 documented as of this encounter
--- OUTSIDE RECORDS SUMMARY | 2024-07-23 02:08 | XMS_ITS | Encounter Summary ---
Author Organization [facility] Address [facility] [place] [address] Care Team Providers Care Topper Packer Name Role Phone Raoul Michelle YADIRA Primary Care Provider [phone] Encounter Details Date Type Department Care Team (Late st Contact Info) Description 03/10/2015 [place] [address] Marley Bustos LPN Social History Tobacco Use [...] for her fexofenadine 180 mg. YADIRA # [id number] Patient notified of decision. * Telephone Encounter [...] 11:00 AM EDT Office Visit [place] [address] Josephine Espinosa MD [facility] [place] [address] documented as of this encounter Visit Diagnoses Not on filedocumented in this encounter Care Teams Topper Packer Relationship Specialty Start Date End Date Michelle Silveira PA PCP - General 05/09/10 08/04/15 documented as of this encounter
--- OUTSIDE RECORDS SUMMARY | 2024-07-23 02:08 | XMS_ITS | Encounter Summary ---
Author Organization [facility] Address [facility] [place] [address] Care Team Providers Care Time Clock Mechanic Name Role Phone Raoul Michelle MAY Primary Care Provider [phone] Encounter Details Date Type Department Care Team (Late st Contact Info) Description 12/25/2013 8:10 AM EDT - 12/25/2013 8:20 AM EDT Hospital En[place] [address] Social History Tobacco Use Types Packs/Day Years [...] tablet 12 11/26/2013 04/28/2014 NASONEX 50 mcg/actuation [place] 2 sprays by Nasal route daily. 17 [...] 11/26/2013 12/01/2014 estradiol (VAGIFEM) 10 mcg vaginal tabletIndications:[place] pause Place 1 tablet vaginally twice a [...] 11:00 AM EDT Office [place] [address] Josephine Espinosa MD [facility] [place] [address] documented as of this encounter Procedures Procedure [...] age and breast cancer risk factors. Bettie Downing APRN IMG MAMMO ORDERABLES documented in this encounter Visit Diagnoses Not on filedocumented in this encounter Care Teams Time Clock Mechanic Relationship Specialty Start Date End Date Michelle Silveira PA PCP - General 05/09/10 08/04/15 documented as of this encounter
--- OUTSIDE RECORDS SUMMARY | 2024-07-23 02:08 | XMS_ITS | Encounter Summary ---
Author Organization [facility] [place] [address] Care Team Providers Care Professional Athlete Name Role Phone Michelle Silveira YADIRA Primary Care Provider Reason for Visit * Reason Onset Date Comments Other 03/16/2015 Allergy injectio ns Encounter Details Date Type Department Care Team (Late st Contact Info) Description 03/16/2015 Telephone Allergy at [facility] [place] [address] Ankita Guzmán LPN Other (Allergy injections) Social [...] listed in chart. She is in the[facility] ([facility] for the next few day. documented in this encounter Plan of Treatment Upcoming Encounters Date Type Department Care Team (Late st Contact Info) Description 09/03/2024 11:00 AM EDT Office Visit [place] [address] Josephine Espinosa MD [facility] [place] [address] documented as of this encounter Visit Diagnoses Not on filedocumented in this encounter Care Teams Professional Athlete Relationship Specialty Start Date End Date Michelle Silveira PA PCP - General 05/09/10 08/04/15 documented as of this encounter
--- OUTSIDE RECORDS SUMMARY | 2024-07-23 02:08 | XMS_ITS | Encounter Summary ---
Author Organization [facility] Address [facility] [place] [address] Care Team Providers Care Manager Security And Safety Name Role Phone Raoul Michelle MAY Primary Care Provider [phone] Reason for Visit * Reason Comments Immunotherapy Encounter Details Date Type Department Care Team ([facility] st Contact Info) Description 08/19/2014 11:00 AM EST Office Visit Allergy at [facility] [place] [address] ALLERGY, INJECTION Allergic rhinitis due to pollen; [...] 11:00 AM EDT Office Visit [place] [address] Josephine Espinosa MD [facility] [place] [address] documented as of this encounter Visit Diagnoses Diagnosis Allergic rhinitis due to pollen Allergic rhinitis, cause unspecified documented in this encounter Care Teams Manager Security And Safety Relationship Specialty Start Date End Date Michelle Silveira PA PCP - General 05/09/10 08/04/15 documented as of this encounter
--- OUTSIDE RECORDS SUMMARY | 2024-07-23 02:08 | XMS_ITS | Encounter Summary ---
Author Organization [facility] Address [facility] [place] [address] Care Team Providers Care Grain Handler Name Role Phone Raoul Michelle YADIRA Primary Care Provider [phone] Reason for Visit * Reason Comments Immunotherapy Encounter Details Date Type Department Care Team ([facility] st Contact Info) Description 12/29/2014 3:30 PM EDT Office Visit Allergy at [facility] [place] [address] ALLERGY, INJECTION Allergic rhinitis due to pollen; [...] date on his/her vials are correct. yes Rbeeca Hernández has come into the All[facility] [...] 11:00 AM EDT Office [place] [address] Josephine Espinosa MD [facility] [place] [address] documented as of this encounter Visit Diagnoses Diagnosis Allergic rhinitis due to pollen Allergic rhinitis, cause unspecified documented in this encounter Care Teams Grain Handler Relationship Specialty Start Date End Date Michelle Silveira PA PCP - General 05/09/10 08/04/15 documented as of this encounter
--- OUTSIDE RECORDS SUMMARY | 2024-07-23 02:08 | XMS_ITS | Encounter Summary ---
Author Organization [facility] Address [facility] [place] [address] Care Team Providers Care Early Childhood Aide Classroom Name Role Phone Raoul Michelle YADIRA Primary Care Provider [phone] Encounter Details Date Type Department Care Team (Latest Contact Info) Description 08/11/2014 12:27 PM EST - 08/11/2014 11:59 PM EST Hospital Encounter Mammography at [facility] [place] [address] CLINIC, DR JAN Bernardo, El Mariee MD [facility] [place] [address] Breast cancer, left breast Discharge Disposition: Home [...] 11/26/2013 12/01/2014 estradiol (VAGIFEM) 10 mcg vaginal tabletIndications:[facility] pause [facility] 1 tablet vaginally twice a [...] 11:00 AM EDT Office [place] [address] Josephine Espinosa MD [facility] [place] [address] documented as of this encounter Procedures Procedure [...] site documented in this encounter Care Teams Early Childhood Aide Classroom Relationship Specialty Start Date End Date Michelle Silveira PA PCP - General 05/09/10 08/04/15 documented as of this encounter
--- OUTSIDE RECORDS SUMMARY | 2024-07-23 02:08 | XMS_ITS | Encounter Summary ---
Author Organization [facility] [place] [address] Care Team Providers Care Breakfast And Room Attendant Name Role Phone RaoulMichelle YADIRA Primary Care Provider [phone] Reason for Visit * Reason Comments Follow-up Immunotherapy Encounter Details Date Type Department Care Team (Latest Contact Info) Description 03/04/2015 10:45 AM EDT Follow-Up Allergy at [facility] [place] [address] Queenie Warren MD Allergic rhinoconjunctivitis of both [...] surgical history were reviewed and updated in [facility]. Allergies: Tramadol; Carvedilol; Iodine; Morphine; Codeine phosphate; [...] ADNEXA performed by Carly Chamberlain MD at [facility] MAIN OR ??? Tonsillectomy ??? Adenoidectomy [...] AM EDT Office Visit [place] [address] Josephine Espinosa MD [facility] [place] [address] documented as of this encounter Procedures Procedure [...] unspecified documented in this encounter Care Teams Breakfast And Room Attendant Relationship Specialty Start Date End Date Michelle Silveira PA PCP - General 05/09/10 08/04/15 documented as of this encounter
--- OUTSIDE RECORDS SUMMARY | 2024-07-23 02:08 | XMS_ITS | Encounter Summary ---
Author Organization [facility] Address [facility] [place] [address] Care Team Providers Care Dried Fruit Washer Name Role Phone Raoul Michelle YADIRA Primary Care Provider [phone] Reason for Visit * Reason Comments Immunotherapy Encounter Details Date Type Department Care Team ([facility] st Contact Info) Description 10/13/2014 10:15 AM EDT Office Visit Allergy at [facility] [place] [address] ALLERGY, INJECTION Allergic rhinitis due to pollen; [...] 11:00 AM EDT Office [place] [address] Josephine Espinosa MD [facility] [place] [address] documented as of this encounter Visit Diagnoses Diagnosis Allergic rhinitis due to pollen Allergic rhinitis, cause unspecified documented in this encounter Care Teams Dried Fruit Washer Relationship Specialty Start Date End Date Michelle Silveira PA PCP - General 05/09/10 08/04/15 documented as of this encounter
--- OUTSIDE RECORDS SUMMARY | 2024-07-23 02:08 | XMS_ITS | Encounter Summary ---
Author Organization [facility] Address [facility] [place] [address] Care Team Providers Care Volleyball Coach Name Role Phone Michelle Silveira Primary Care Provider [phone] Encounter Details Date Type Department Care Team ([facility] Contact Info) Description 06/07/2014 Orders Only Hematology Oncology at [address] [phone] El Bernardo MD [facility] [place] [address] Social History Tobacco Use Types Packs/Day Years [...] 11:00 AM EDT Office [place] [address] Josephine Espinosa MD [facility] [place] [address] documented as of this encounter Visit Diagnoses Not on filedocumented in this encounter Care Teams Volleyball Coach Relationship Specialty Start Date End Date Michelle Silveira PA PCP - General 05/09/10 08/04/15 documented as of this encounter
--- OUTSIDE RECORDS SUMMARY | 2024-07-23 02:08 | XMS_ITS | Encounter Summary ---
Author Organization [facility] Address [facility] [place] [address] Care Team Providers Care Stoker Installer Name Role Phone Raoul Michelle YADIRA Primary Care Provider [phone] Reason for Visit * Reason Comments Immunotherapy Encounter Details Date Type Department Care Team ([facility] st Contact Info) Description 01/05/2015 11:00 AM EDT Office Visit Allergy at [facility] [place] [address] ALLERGY, INJECTION Allergic rhinitis due to pollen; [...] 11:00 AM EDT [place] [address] Josephine Espinosa MD [facility] [address] documented as of this encounter Visit Diagnoses Diagnosis Allergic rhinitis due to pollen Allergic rhinitis, cause unspecified documented in this encounter Care Teams Stoker Installer Relationship Specialty Start Date End Date Michelle Silveira PA PCP - General 05/09/10 08/04/15 documented as of this encounter
--- OUTSIDE RECORDS SUMMARY | 2024-07-23 02:08 | XMS_ITS | Encounter Summary ---
Author Organization [facility] Address [facility] [place] [address] Care Team Providers Care Growth Media Mixer Mushroom Name Role Phone Michelle Silveira YADIRA Primary Care Provider [phone] Reason for Visit * Reason Onset Date Comments Other 03/02/2015 Encounter Details Date Type Department Care Team ([facility] st Contact Info) Description 03/02/2015 Telephone Allergy at [facility] [place] [address] Ankita Guzmán LPN Other Social History Tobacco [...] Author Type: Licensed Practical Nurse Status: Signed Calender Roll Operator: Ankita Guzmán LPN (Licensed Practical Nurse) Expand [...] 11:00 AM EDT Office Visit [place] [address] Josephine Espinosa MD [facility] [place] [address] documented as of this encounter Visit Diagnoses Not on filedocumented in this encounter Care Teams Growth Media Mixer Mushroom Relationship Specialty Start Date End Date Michelle Silveira PA PCP - General 05/09/10 08/04/15 documented as of this encounter
--- OUTSIDE RECORDS SUMMARY | 2024-07-23 02:08 | XMS_ITS | Encounter Summary ---
Author Organization [facility] [place] [address] Care Team Providers Care Supervisor Travel Trailer Name Role Phone RaoulMichelle YADIRA Primary Care Provider [phone] Reason for Visit * Reason Comments Follow-up Allergies Encounter Details Date Type Department Care Team ([facility] Contact Info) Description 06/16/2014 11:15 AM EST Follow-Up Allergy at [facility] [place] [address] Queenie Warren MD Chronic allergic rhinitis; Dyspnea; Environmental allergies Discharge [...] encasings, pillow and mattress ( ie From [employer]; [employer], [employer], [employer], [employer] [place], [employer]) 2. Wash bedding in hot water (no [...] with ??? Follow-up ??? Allergies HPI. Rebeca Hernández Is here [...] Chest pain Overview Note: A. Stress test [facility] 06/28: exercised to 10.1 METs and [...] ADNEXA performed by Carly Chamberlain MD at [facility] MAIN OR ??? Tonsillectomy ??? Adenoidectomy [...] elm, hickory, oak, pine, poplar, eastern sycamore; [place] pollens: cocklebur, mugwort, pigweed, giant ragweed, sheep [...] for observation. I also reviewed with her group home risksand benefits and success rates of immunotherapy. [...] 11:00 AM EDT Office [place] [address] Josephine Espinosa MD [facility] [place] [address] documented as of this encounter Procedures Procedure [...] PM EST) Dog Epithel, IgE <0.35 kU/L [facility] Comment: Reference Ranges <0.35 kU/L Class 0: [...] Lab Queenie Warren MD IMMUNOLOGY ORDERABLE S [facility] * Cat Epithelium IgE (06/16/2014 1:13 PM EST) Cat Epithel, IgE <0.35 kU/L [facility] Comment: Reference Ranges <0.35 kU/L Class 0: [...] Lab Queenie Warren MD IMMUNOLOGY ORDERABLE S Performing Organization Address City/State/[facility] Co la Phone Number [facility] documented in this encounter Visit Diagnoses Diagnosis Chronic allergic rhinitis Allergic rhinitis, cause unspecified Dyspnea Other dyspnea and respiratory abnormality Environmental allergies Allergic rhinitis, cause unspecified documented in this encounter Care Teams Supervisor Travel Trailer Relationship Specialty Start Date End Date Michelle Silveira PA PCP - General 05/09/10 08/04/15 documented as of this encounter
--- OUTSIDE RECORDS SUMMARY | 2024-07-23 02:08 | XMS_ITS | Encounter Summary ---
Author Organization [facility] Address [facility] [place] [address] Care Team Providers Care Warehouse Distribution Manager Name Role Phone Raoul Michelle MAY Primary Care Provider [phone] Reason for Visit * Reason Comments Immunotherapy Encounter Details Date Type Department Care Team ([facility] st Contact Info) Description 11/24/2014 9:15 AM EDT Office Visit Allergy at [facility] [place] [address] ALLERGY, INJECTION Allergic rhinitis due to pollen; [...] 11:00 AM EDT Office Visit [place] [address] Josephine Espinosa MD [facility] [place] [address] documented as of this encounter Visit Diagnoses Diagnosis Allergic rhinitis due to pollen Allergic rhinitis, cause unspecified documented in this encounter Care Teams Warehouse Distribution Manager Relationship Specialty Start Date End Date Michelle Silveira PA PCP - General 05/09/10 08/04/15 documented as of this encounter
--- OUTSIDE RECORDS SUMMARY | 2024-07-23 02:08 | XMS_ITS | Encounter Summary ---
Author Organization [facility] Address [facility] [place] [address] Care Team Providers Care Freight Team Associate Name Role Phone Raoul Michelle YADIRA Primary Care Provider [phone] Reason for Visit * Reason Comments Immunotherapy Encounter Details Date Type Department Care Team ([facility] st Contact Info) Description 01/19/2015 10:30 AM EDT Office Visit Allergy at [facility] [place] [address] ALLERGY, INJECTION Allergic rhinitis due to pollen; [...] 11:00 AM EDT Office [place] [address] Josephine Espinosa MD [facility] [place] [address] documented as of this encounter Visit Diagnoses Diagnosis Allergic rhinitis due to pollen Allergic rhinitis, cause unspecified documented in this encounter Care Teams Freight Team Associate Relationship Specialty Start Date End Date Michelle Silveira PA PCP - General 05/09/10 08/04/15 documented as of this encounter
--- OUTSIDE RECORDS SUMMARY | 2024-07-23 02:08 | XMS_ITS | Encounter Summary ---
Author Organization [facility] Address [facility] [place] [address] Care Team Providers Care Sales Assistant Displays Name Role Phone Raoul Michelle YADIRA Primary Care Provider [phone] Reason for Visit * Reason Comments Immunotherapy Encounter Details Date Type Department Care Team ([facility] st Contact Info) Description 12/02/2014 9:30 AM EDT Office Visit Allergy at [facility] [place] [address] ALLERGY, INJECTION Allergic rhinitis due to pollen; [...] 11:00 AM EDT Office [place] [address] Josephine Espinosa MD [facility] [place] [address] documented as of this encounter Visit Diagnoses Diagnosis Allergic rhinitis due to pollen Allergic rhinitis, cause unspecified documented in this encounter Care Teams Sales Assistant Displays Relationship Specialty Start Date End Date Michelle Silveira PA PCP - General 05/09/10 08/04/15 documented as of this encounter
--- OUTSIDE RECORDS SUMMARY | 2024-07-23 02:08 | XMS_ITS | Encounter Summary ---
Author Organization [facility] Address [facility] [place] [address] Care Team Providers Care Assistant Laboratory Director Name Role Phone Raoul Michelle MAY Primary Care Provider [phone] Reason for Visit * Reason Comments Immunotherapy Encounter Details Date Type Department Care Team ([facility] st Contact Info) Description 12/09/2014 10:00 AM EDT Office Visit Allergy at [facility] [place] [address] ALLERGY, INJECTION Allergic rhinitis due to pollen; [...] 11:00 AM EDT Office [place] [address] Josephine Espinosa MD [facility] [place] [address] documented as of this encounter Visit Diagnoses Diagnosis Allergic rhinitis due to pollen Allergic rhinitis, cause unspecified documented in this encounter Care Teams Assistant Laboratory Director Relationship Specialty Start Date End Date Michelle Silveira PA PCP - General 05/09/10 08/04/15 documented as of this encounter
--- OUTSIDE RECORDS SUMMARY | 2024-07-23 02:08 | XMS_ITS | Encounter Summary ---
Author Organization [facility] Address [facility] [place] [address] Care Team Providers Care District Fire Management Officer Name Role Phone Raoul Michelle MAY Primary Care Provider [phone] Reason for Visit * Reason Comments Breast Cancer Follow-up Encounter Details Date Type Department Care Team (Late st Contact Info) Description 07/23/2014 3:00 PM EST Follow-Up Hematology Oncology at [address] [phone] El Bernardo MD [facility] [place] [address] Breast cancer, left breast; BRCA gene positive; [...] with heterologous chondroid differentiation Tumor Grade: High Ccxjyq-Lfcrv-Edvrmuyfnb Score: 9 Tubular Differentiation: 3 Mitotic Rate: [...] same BRCA1 alteration found in her mother (U0188O). Prophylactic BSO 04/2013. Path - Right and left fallopian tubes and ovaries (bilateral salpingo-oophorectomy): No evidence of malignancy. 3. 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
--- OUTSIDE RECORDS SUMMARY | 2024-07-23 02:08 | XMS_ITS | Encounter Summary ---
Author Organization [facility] Address [facility] [place] [address] Care Team Providers Care Plant Tech Name Role Phone Roaul Michelle YADIRA Primary Care Provider [phone] Encounter Details Date Type Department Care Team (Latest Contact Info) Description 12/25/2013 8:21 AM EDT - 12/25/2013 11:59 PM EDT Hospital Encounter Mammography at [facility] [place] [address] El Bernardo MD [facility] [place] [address] Breast cancer, left; BRCA1 positive Discharge Disposition: [...] 30 tablet 11/26/2013 04/28/2014 NASONEX 50 mcg/actuation [place] 2 sprays by Nasal route daily. 17 [...] 11:00 AM EDT Office [place] [address] Josephine Espinosa MD [facility] [place] [address] documented as of this encounter Procedures Procedure [...] breast documented in this encounter Care Teams Plant Tech Relationship Specialty Start Date End Date Michelle Silveira PA PCP - General 05/09/10 08/04/15 documented as of this encounter
--- OUTSIDE RECORDS SUMMARY | 2024-07-23 02:08 | XMS_ITS | Encounter Summary ---
Author Organization [facility] Address [facility] [place] [address] Care Team Providers Care Construction Checker Name Role Phone Raoul Michelle MAY Primary Care Provider [phone] Reason for Visit * Reason Comments Immunotherapy Encounter Details Date Type Department Care Team ([facility] st Contact Info) Description 09/15/2014 10:45 AM EDT Office Visit Allergy at [facility] [place] [address] ALLERGY, INJECTION Allergic rhinitis due to pollen; [...] 11:00 AM EDT Office [place] [address] Josephine Espinosa MD [facility] [place] [address] documented as of this encounter Visit Diagnoses Diagnosis Allergic rhinitis due to pollen Allergic rhinitis, cause unspecified documented in this encounter Care Teams Construction Checker Relationship Specialty Start Date End Date Michelle Silveira PA PCP - General 05/09/10 08/04/15 documented as of this encounter
--- OUTSIDE RECORDS SUMMARY | 2024-07-23 02:08 | XMS_ITS | Encounter Summary ---
Author Organization [facility] Address [facility] [place] [address] Care Team Providers Care Academic Support Assistant Name Role Phone Raoul Michelle MAY Primary Care Provider [phone] Reason for Visit * Reason Comments Immunotherapy Encounter Details Date Type Department Care Team ([facility] st Contact Info) Description 09/08/2014 1:00 PM EDT Office Visit Allergy at [facility] [place] [address] ALLERGY, INJECTION Allergic rhinitis due to pollen; [...] 11:00 AM EDT Office [place] [address] Josephine Espinosa MD [facility] [place] [address] documented as of this encounter Visit Diagnoses Diagnosis Allergic rhinitis due to pollen Allergic rhinitis, cause unspecified documented in this encounter Care Teams Academic Support Assistant Relationship Specialty Start Date End Date Michelle Silveira PA PCP - General 05/09/10 08/04/15 documented as of this encounter
--- OUTSIDE RECORDS SUMMARY | 2024-07-23 02:08 | XMS_ITS | Encounter Summary ---
Author Organization [facility] [place] [address] Care Team Providers Care Fire Extinguisher Repairer Inspector Name Role Phone Raoul Michelle YADIRA Primary Care Provider [phone] Reason for Visit * Reason Comments Immunotherapy Encounter Details Date Type Department Care Team ([facility] Contact Info) Description 03/09/2015 11:15 AM EDT Office Visit Allergy at [facility] [place] [address] ALLERGY, INJECTION Allergic rhinitis due to pollen; [...] 11:00 AM EDT Office [place] [address] Josephine Espinosa MD [facility] [address] documented as of this encounter Procedures Procedure Name Priority Date/Time Associated Diagnosis Comments ALLERGY SCAN 07/05/2015 12:00 AM EST documented in this encounter Results * SCAN DOC: ALLERGY (07/05/2015 12:00 AM EST) Scanning Provider MEDIA MGR SCAN EXT O RDR/RSLT documented in this encounter Visit Diagnoses Diagnosis Allergic rhinitis due to pollen Allergic rhinitis, cause unspecified documented in this encounter Care Teams Fire Extinguisher Repairer Inspector Relationship Specialty Start Date End Date Michelle Silveira PA PCP - General 05/09/10 08/04/15 documented as of this encounter
--- OUTSIDE RECORDS SUMMARY | 2024-07-23 02:08 | XMS_ITS | Encounter Summary ---
Author Organization [facility] Address [facility] [place] [address] Care Team Providers Care Automotive Product Engineer Name Role Phone Raoul Michelle MAY Primary Care Provider [phone] Reason for Visit * Reason Comments Immunotherapy Encounter Details Date Type Department Care Team ([facility] st Contact Info) Description 11/11/2014 4:15 PM EDT Office Visit Allergy at [facility] [place] [address] ALLERGY, INJECTION Allergic rhinitis due to pollen; [...] 11:00 AM EDT Office Visit [place] [address] Josephine Espinosa MD [facility] [place] [address] documented as of this encounter Visit Diagnoses Diagnosis Allergic rhinitis due to pollen Allergic rhinitis, cause unspecified documented in this encounter Care Teams Automotive Product Engineer Relationship Specialty Start Date End Date Michelle Silveira PA PCP - General 05/09/10 08/04/15 documented as of this encounter
--- OUTSIDE RECORDS SUMMARY | 2024-07-23 02:08 | XMS_ITS | Encounter Summary ---
Author Organization [facility] [place] [address] Care Team Providers Care Rework Machine Operator Name Role Phone Raoul Michelle YADIRA Primary Care Provider [phone] Reason for Visit * Reason Comments Immunotherapy Encounter Details Date Type Department Care Team ([facility] st Contact Info) Description 02/09/2015 1:30 PM EDT Office Visit Allergy at [facility] [place] [address] ALLERGY, INJECTION Allergic rhinitis due to pollen; [...] AM EDT Office Visit [place] [address] Josephine Espinosa MD [facility] [place] [address] documented as of this encounter Visit Diagnoses Diagnosis Allergic rhinitis due to pollen Allergic rhinitis, cause unspecified documented in this encounter Care Teams Rework Machine Operator Relationship Specialty Start Date End Date Michelle Silveira PA PCP - General 05/09/10 08/04/15 documented as of this encounter
--- OUTSIDE RECORDS SUMMARY | 2024-07-23 02:08 | XMS_ITS | Encounter Summary ---
Author Organization [facility] Address [facility] [place] [address] Care Team Providers Care Sock Knitter Name Role Phone Raoul Michelle MAY Primary Care Provider [phone] Reason for Visit * Reason Comments Immunotherapy Encounter Details Date Type Department Care Team ([facility] st Contact Info) Description 08/25/2014 11:15 AM EDT Office Visit Allergy at [facility] [place] [address] ALLERGY, INJECTION Allergic rhinitis due to pollen; [...] 11:00 AM EDT Office Visit [place] [address] Josephine Espinosa MD [facility] [place] [address] documented as of this encounter Visit Diagnoses Diagnosis Allergic rhinitis due to pollen Allergic rhinitis, cause unspecified documented in this encounter Care Teams Sock Knitter Relationship Specialty Start Date End Date Michelle Silveira PA PCP - General 05/09/10 08/04/15 documented as of this encounter
--- OUTSIDE RECORDS SUMMARY | 2024-07-23 02:08 | XMS_ITS | Encounter Summary ---
Author Organization [facility] [place] [address] Care Team Providers Care Dough Panner Name Role Phone Michelle Silveira YADIRA Primary Care Provider [phone] Encounter Details Date Type Department Care Team (Late st Contact Info) Description 07/14/2014 [place] [address] Casey Hernandez MD [facility] [address] [facility] [place] [address] Social History Tobacco Use Types Packs/Day Years [...] 11:00 AM EDT Office Visit [place] [address] Josephine Espinosa MD [facility] [place] [address] documented as of this encounter Visit Diagnoses Not on filedocumented in this encounter Care Teams Dough Panner Relationship Specialty Start Date End Date Michelle Silveira PA PCP - General 05/09/10 08/04/15 documented as of this encounter
--- OUTSIDE RECORDS SUMMARY | 2024-07-23 02:08 | XMS_ITS | Encounter Summary ---
Author Organization [facility] Address [facility] [place] [address] Care Team Providers Care Drafter Civil Engineering Name Role Phone Raoul Michelle YADIRA Primary Care Provider [phone] Reason for Visit * Reason Comments Immunotherapy Encounter Details Date Type Department Care Team ([facility] st Contact Info) Description 01/12/2015 11:15 AM EDT Office Visit Allergy at [facility] [place] [address] ALLERGY, INJECTION Allergic rhinitis due to pollen; [...] AM EDT Office Visit [place] [address] Josephine Espinosa MD [facility] [address] documented as of this encounter Visit Diagnoses Diagnosis Allergic rhinitis due to pollen Allergic rhinitis, cause unspecified documented in this encounter Care Teams Drafter Civil Engineering Relationship Specialty Start Date End Date Michelle Silveira PA PCP - General 05/09/10 08/04/15 documented as of this encounter
--- OUTSIDE RECORDS SUMMARY | 2024-07-23 02:08 | XMS_ITS | Encounter Summary ---
Author Organization [facility] [place] [address] Care Team Providers Care Phlebotomist Prn Name Role Phone RaoulMichelle YADIRA Primary Care Provider [phone] Reason for Visit * Reason Comments Follow-up Allergies Encounter Details Date Type Department Care Team (Late st Contact Info) Description 04/28/2014 9:45 AM EST Follow-Up Allergy at [facility] [place] [address] Queenie Warren MD Allergic rhinoconjunctivitis, bilateral; Environmental allergies; Dyspnea; Rash [...] - Restart Nasonex and Astelin - Continue Exytss51os daily as needed - Will hold off [...] your breathing issues - Follow up with textile machine maintenance mechanic as previously scheduled. Discuss with him if [...] Follow-up ??? Allergies Summary of outside records: [facility], 04/21/14. CT chest: negative for pulmonary emboli. [...] Chest pain Overview Note: A. Stress test [facility] 06/28: exercised to 10.1 METs and 152 [...] She was seen in the ER in [facility]. Per the patient, CT chest was performed and PE was ruled out. She has had hives since receiving contrast and taking antihistamines and prednisone. Not using any inhalers. No hemoptysis. Plans to follow up with textile machine maintenance mechanic because of history of cardiomyopathy. She has [...] ADNEXA performed by Carly Chamberlain MD at [facility] MAIN OR ??? Tonsillectomy ??? Adenoidectomy [...] on beta dmitry. She will discuss with textile machine maintenance mechanic if she can switch to an alternative [...] associated with asthma. - Follow up with textile machine maintenance mechanic as previously scheduled. Discuss stopping beta dmitry [...] 11:00 AM EDT Office [place] [address] Josephine Espinosa MD [facility] DR GASTROENTEROLOGY [place] [id number] documented as of this encounter Results * [...] abnormality documented in this encounter Care Teams Phlebotomist Prn Relationship Specialty Start Date End Date Michelle Silveira PA PCP - General 05/09/10 08/04/15 documented as of this encounter
--- OUTSIDE RECORDS SUMMARY | 2024-07-23 02:08 | XMS_ITS | Encounter Summary ---
Author Organization [facility] Address [facility] [place] [address] Care Team Providers Care Knock Up Assembler Name Role Phone Michelle Silveira Primary Care Provider [phone] Reason for Visit * Reason Comments Medication Refill Encounter Details Date Type Department Care Team (Late st Contact Info) Description 12/01/2014 [place] [address] Queenie Warren MD Social History Tobacco Use [...] 11:00 AM EDT Office [place] [address] Josephine Espinosa MD [facility] [place] [address] documented as of this encounter Visit Diagnoses Not on filedocumented in this encounter Care Teams Knock Up Assembler Relationship Specialty Start Date End Date Michelle Silveira PA PCP - General 05/09/10 08/04/15 documented as of this encounter
--- OUTSIDE RECORDS SUMMARY | 2024-07-23 02:08 | XMS_ITS | Encounter Summary ---
Author Organization [facility] [place] [address] Care Team Providers Care Director And Professor Name Role Phone Raoul Michelle YADIRA Primary Care Provider [phone] Reason for Visit * Reason Comments Allergies Encounter Details Date Type Department Care Team ([facility] Contact Info) Description 11/17/2014 10:45 AM EDT Follow-Up Allergy at [facility] [place] [address] Queenie Warren MD Allergic rhinoconjunctivitis, bilateral; Desensitization to allergens; Environmental [...] encasings, pillow and mattress ( ie From [email or web address]; [employer], [employer], [employer], [employer] [place], [employer]) 2. Wash bedding in hot water (no [...] ADNEXA performed by Carly Chamberlain MD at [facility] MAIN OR ??? Tonsillectomy ??? Adenoidectomy [...] 11:00 AM EDT Office Visit [place] [address] Josephine Espinosa MD [facility] [place] [place] [address] documented as of this encounter Visit Diagnoses Diagnosis Allergic rhinoconjunctivitis, bilateral Desensitization to allergens Need for desensitization to allergens Environmental allergies Allergic rhinitis, cause unspecified documented in this encounter Care Teams Director And Professor Relationship Specialty Start Date End Date Michelle Silveira PA PCP - General 05/09/10 08/04/15 documented as of this encounter
--- OUTSIDE RECORDS SUMMARY | 2024-07-23 02:08 | XMS_ITS | Encounter Summary ---
Author Organization [facility] Address [facility] [place] [address] Care Team Providers Care Tank Farm Operator Name Role Phone Raoul Michelle MAY Primary Care Provider [phone] Reason for Visit * Reason Comments Immunotherapy Encounter Details Date Type Department Care Team ([facility] st Contact Info) Description 09/30/2014 11:00 AM EDT Office Visit Allergy at [facility] [place] [address] ALLERGY, INJECTION Allergic rhinitis due to pollen; [...] 11:00 AM EDT Office [place] [address] Josephine Espinosa MD [facility] [place] [address] documented as of this encounter Visit Diagnoses Diagnosis Allergic rhinitis due to pollen Allergic rhinitis, cause unspecified documented in this encounter Care Teams Tank Farm Operator Relationship Specialty Start Date End Date Michelle Silveira PA PCP - General 05/09/10 08/04/15 documented as of this encounter
--- OUTSIDE RECORDS SUMMARY | 2024-07-23 02:08 | XMS_ITS | Encounter Summary ---
Author Organization [facility] Address [facility] [place] [address] Care Team Providers Care Garment Turner Name Role Phone RaoulMichelle YADIRA Primary Care Provider [phone] Reason for Visit * Reason Comments Immunotherapy Encounter Details Date Type Department Care Team ([facility] Contact Info) Description 12/16/2014 10:30 AM EDT Office Visit Allergy at [facility] [place] [address] ALLERGY, INJECTION Allergic rhinitis due to pollen; [...] 11:00 AM EDT Office [place] [address] Josephine Espinosa MD [facility] [place] [address] documented as of this encounter Visit Diagnoses Diagnosis Allergic rhinitis due to pollen Allergic rhinitis, cause unspecified documented in this encounter Care Teams Garment Turner Relationship Specialty Start Date End Date Michelle Silveira PA PCP - General 05/09/10 08/04/15 documented as of this encounter
--- OUTSIDE RECORDS SUMMARY | 2024-07-23 02:09 | XMS_ITS | Encounter Summary ---
Author Organization [facility] Address [facility] [place] [address] Care Team Providers Care Nuclear Fuel Processing Technician Name Role Phone RaoulMichelle YADIRA Primary Care Provider [phone] Encounter Details Date Type Department Care Team (Late Contact Info) Description 08/20/2011 Telephone Cardiology at [address] [phone] Sobeida Taylor, RN Social History Tobacco Use [...] 09/05/11. Has appt with Dr. Orourke in [place] on October 04 documented in this encounter Plan of Treatment Upcoming Encounters Date Type Department Care Team (Late st Contact Info) Description 09/03/2024 11:00 AM EDT Office Visit [place] [address] Josephine Espinosa MD [facility] [place] [address] documented as of this encounter Visit Diagnoses Not on filedocumented in this encounter Care Teams Nuclear Fuel Processing Technician Relationship Specialty Start Date End Date Michelle Silveira PA PCP - General 05/09/10 08/04/15 documented as of this encounter
--- OUTSIDE RECORDS SUMMARY | 2024-07-23 02:09 | XMS_ITS | Encounter Summary ---
Author Organization [facility] Address [facility] [place] [address] Care Team Providers Care Refrigeration Installer Name Role Phone Michelle Silveira Primary Care Provider [phone] Encounter Details Date Type Department Care Team (Late st Contact Info) Description 04/23/2012 Orders Only Hematology Oncology at [address] [address] Lupe Mustafa RN Social History Tobacco Use [...] 11:00 AM EDT Office [place] [address] Josephine Espinosa MD [facility] [place] [address] documented as of this encounter Visit Diagnoses Not on filedocumented in this encounter Care Teams Refrigeration Installer Relationship Specialty Start Date End Date Michelle Silveira PA PCP - General 05/09/10 08/04/15 documented as of this encounter
--- OUTSIDE RECORDS SUMMARY | 2024-07-23 02:09 | XMS_ITS | Encounter Summary ---
Author Organization Formerly [facility] [place] [address] Care Team Providers Care Electronic Gluer Name Role Phone Michelle Silveira Primary Care Provider [phone] Reason for Visit * Reason Onset Date Comments Medication Refill 06/04/2012 Encounter Details Date Type Department Care Team (Late st Contact Info) Description 06/04/2012 Refill [place] [address] Anna Bales, RN Yeast infection (Primary Dx) [...] 11:00 AM EDT Office [place] [address] Josephine Espinosa MD [facility] [place] [address] [address] documented as of this encounter Visit Diagnoses Diagnosis Yeast infection- Primary Other and unspecified mycoses documented in this encounter Care Teams Electronic Gluer Relationship Specialty Start Date End Date Michelle Silveira PA PCP - General 05/09/10 08/04/15 documented as of this encounter
--- OUTSIDE RECORDS SUMMARY | 2024-07-23 02:09 | XMS_ITS | Encounter Summary ---
Author Organization Formerly [facility] Address [facility] [place] [address] Care Team Providers Care Manager Drug Safety Name Role Phone Raoul Michelle YADIRA Primary Care Provider [phone] Reason for Visit * Reason Comments Injections Encounter Details Date Type Department Care Team ([facility] st Contact Info) Description 01/14/2013 2:30 PM EDT Office Visit Allergy at [facility] [address] ALLERGY, INJECTION Allergy to mites (Primary Dx); [...] Rxn: none Extract: Mix B (Arnol Grass,Cat,Tree Mix,[place] Mix,Dog) Dilution: Silver (0.2bau/ml,0.1bau/ml,1:2,000,000w/v,1:2,000,000w/v,1,1,000,0000w/v) Dose: 0.2 cc Site:right arm sc Rxn: none Pt was observed here in the waiting area for 30 minutes. NO adverse side effects were noted. Pt ambulated from clinic in stable condition. documented in this encounter Plan of Treatment Upcoming Encounters Date Type Department Care Team (Late st Contact Info) Description 09/03/2024 11:00 AM EDT Office [place] [address] Josephine Espinosa MD [facility] [place] [address] documented as of this encounter Visit Diagnoses Diagnosis Allergy to mites- Primary Allergy, unspecified not elsewhere classified Allergic rhinitis, cause unspecified Allergic rhinitis due to pollen Allergy to cats Allergic rhinitis due to other allergen Allergy to dog dander Allergic rhinitis due to animal (cat) (dog) hair and dander documented in this encounter Care Teams Manager Drug Safety Relationship Specialty Start Date End Date Michelle Silveira PA PCP - General 05/09/10 08/04/15 documented as of this encounter
--- OUTSIDE RECORDS SUMMARY | 2024-07-23 02:09 | XMS_ITS | Encounter Summary ---
Author Organization [facility] Address [facility] [place] [address] Care Team Providers Care Galley Worker Name Role Phone RaoulMichelle YADIRA Primary Care Provider [phone] Reason for Visit * Reason Comments Established PRE OP? Encounter Details Date Type Department Care Team ([facility] st Contact Info) Description 12/14/2011 10:00 AM EDT Follow-Up [place] [phone] Carly Solano MD [facility] [place] [address] Annual physical exam Discharge Disposition: Home Social [...] 4:21 PM EDT Subjective: Patient ID: Ty Taylor is a 50 y.o. female here for annual exam and to discuss whether she should have a RRSO. Patient Active Problem List Diagnoses Code ??? Breast cancer 174.9D ??? Depression 311L ??? Chest pain 786.50F ??? Cardiomyopathy 425.4BF ??? GERD (gastroesophageal reflux disease) 530.81S ??? Palpitations 785.1 ??? S/P TKR (total knee replacement) V43.65X ??? BRCA1 positive V84.01F HPI Ty Taylor returns today for annual tug hand evaluation. She has had chemotherapy induced menopause, with last bleeding occurring in February of 2008. She has not had any bleeding since then. Shehas no hot flashes. Other than vaginal dryness, she has no tug hand complaints. Ty is a 50-year-old woman who is status post a left breast lumpectomy and sentinal lymphadenectomy 02/19. 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 All margins were greater than 1 cm. Zero of four sentinel nodes were positive. On 03/28/05, she began adjuvant chemotherapy (AC) and completed this 07/2005. She completed XRT November 2005. Her breast cancer was ER/UT and HER-2 negative. She has tested positive for a BRCA-1 mutation. I saw Ms. Taylor in 2008, at which time we discussedsurveillance [...] every 6 hours as needed. Yes MD Roay LORazepam (ATIVAN) 1 mg tablet Take 1 [...] (195 lb) Objective: Physical Exam Gen: Ty Taylor appears very well, appropriate in dress and [...] 11:00 AM EDT Office [place] [address] Josephine Espinosa MD [facility] [place] [address] documented as of this encounter Procedures Procedure Name Priority Date/Time Associated Diagnosis Comments CONCERT OR LECTURE HALL MANAGER MOLECULAR GENETICS REPORT Routine 12/14/2011 6:16 PM EDT CONCERT OR LECTURE HALL MANAGER CYTOLOGY FINAL REPORT Routine 12/14/2011 6:16 PM EDT CYTOPATHOLOGY GYNECOLOGICAL Routine 12/14/2011 4:28 PM EDT Annual physical exam documented in this encounter Results * CONCERT OR LECTURE HALL MANAGER MOLECULAR GENETICS REPORT (12/14/2011 6:16 PM EDT) CONCERT OR LECTURE HALL MANAGER Molecular Genetics Report ? [facility] ? Provider: ?? CARLY SOLANO ?Pt. Name: ?? TY TAYLOR ? Acc #: ?[id number] ?Pt. ? Col Date: ?? 12/14/2011 ? [...] Cytology Liquid Based Prep ? Reviewed by: ??Nicolas Vinson ? A ?JULIANNA Cerv-Endocerv LBP ? B ?HPVDO Do HPV Testing ? Verified date: ??12/20/11 ??[facility] ? Verified by: ?Lab Review, Molecular Genetics ? (Electronic Signature) KANDY FRANCIS 12/14/2011 6:16 PM EDT Carly Solano MD PATHOLOGY/CYTOLOGY O RDERABLES KANDY FRANCIS * CONCERT OR LECTURE HALL MANAGER CYTOLOGY FINAL REPORT (12/14/2011 6:16 PM EDT) Carton Forming Machine Tender Cytology Final Report ? [facility] ? Provider: ?? CARLY SOLANO ?Pt. Name: ?? TY TAYLOR ? Acc #: ?[id number] ?Pt. ? Col Date: ?? 12/14/2011 ? /Sex: ?1960,(50 years),Female ? Rec Date: ?? 12/14/2011 ? LOC: ?3K ? CYTOPATHOLOGY: ??CONCERT OR LECTURE HALL MANAGER ? ---Adequacy--- ? Specimen submitted is satisfactory [...] by: ??SLA ? 12/18/11 ?? Verified by: ??LUZMA Aguilar(ASCP), Sydney Hoskins - ? Cut In Station Operator ? ---Comment--- ? HPV testing is ordered and result pending. ? ---Clinical Information--- ? HPV Option: ? Concurrent HPV ? Preparation: ?Liquid Based Pap ? Specimen Source: ?Cervical Endocervical LBP ? LMP: ?N/A ? Hormones?: ?No ? Hysterectomy?: ?No ?: ?No ?: ?No ? I.U.D.?: ?No ? Pelvic Radiation: ? No ? Prior CONCERT OR LECTURE HALL MANAGER Therapy?: ? No ? Hist Abnl Pap/Biopsy?: ??No ? Hist of HPV Vaccine?: ?? No ? Hist of Smoking?: ? No ? Hist of CONY exposure?: ??No ? Clinical Data, Significant Therapy and Clinical Impression: ? This Pap Test has been evaluated with the assistance of the ThinPrep Pap ? Test Imaging System. ? [facility] ? Provider: ?? CARLY SOLANO ?Pt. Name: ?? TY TAYLOR ? Acc #: ?[id number] ?Pt. ? Col Date: ?? 12/14/2011 ? /Sex: ?1960,(50 years),Female ? Rec Date: ?? 12/14/2011 ? LOC: ?3K ? CYTOPATHOLOGY: ??CONCERT OR LECTURE HALL MANAGER ? Note: ? The Pap test is a screening test for cervical cancer with an inherent ? false-negative rate dependent upon several variables. ??For further ? information please contact the [facility] Laboratory. ? Reference: ??Abendroth CS. ??Facility Operations Manager of Pap Smear Results. ??In: ? Julio Cesar BS, Misael HH, ed. ??The Pap Smear. ??[place]: ??Jerad, 2002: ? 71-77. KANDY FRANCIS 12/14/2011 6:16 PM EDT Carly Solano MD PATHOLOGY/CYTOLOGY O NARENDRA KANDY FRANCIS * Cytopathology Gynecological (12/14/2011 4:28 PM EDT) AP Specimen 12/14/2011 4:28 PM EDT 12/14/2011 4:28 PM EDT Narrative KANDY FRANCIS - 12/14/2011 4:28 PM EDT Specimen requisition ordered. ??Separate Pathology report to follow Carly Solano MD PATHOLOGY/CYTOLOGY O NARENDRA KANDY FRANCIS documented in this encounter Visit Diagnoses Diagnosis Annual physical exam Routine general medical examination at a health care facility documented in this encounter Care Teams Galley Worker Relationship Specialty Start Date End Date Michelle Silveira PA PCP - General 05/09/10 08/04/15 documented as of this encounter
--- OUTSIDE RECORDS SUMMARY | 2024-07-23 02:09 | XMS_ITS | Encounter Summary ---
Author Organization [facility] Address [facility] [place] [address] Care Team Providers Care Vc++ Developer Name Role Phone Raoul Michelle YADIRA Primary Care Provider [phone] Encounter Details Date Type Department Care Team (Late st Contact Info) Description 06/27/2012 1:30 PM EST Follow-Up Hematology Oncology at [address] [phone] lE Bernardo MD [facility] [place] [place] [address] Breast cancer (Primary Dx); BRCA gene positive [...] with heterologous chondroid differentiation Tumor Grade: High Htrxzn-Lkaab-Lbngvpfduu Score: 9 Tubular Differentiation: 3 Mitotic Rate: [...] carcinoma: 4 Estrogen/Progestin receptors: ER immunoreactivity: Negative MO immunoreactivity: Negative HER2/yeyo expression by FISH: NEGATIVE [...] same BRCA1 alteration found in her mother ([id number]). She is follwed by Dr. Chamberlain and has so far chosen not to have prophylactic BSO. Trans-vaginal US 06/24/12 -1. Small post-menopausal normal appearing ovaries. 2. Normal thickness endometrium. 3. No free fluid in the cul-de-sac. 3. SANFORIZER History: The patient is G4, P3 with [...] 11:00 AM EDT Office [place] [address] Josephine Espinosa MD [facility] [place] [address] documented as of this encounter Visit Diagnoses Diagnosis Breast cancer- Primary Malignant neoplasm of breast (female), unspecified site BRCA gene positive Genetic susceptibility to malignant neoplasm of breast documented in this encounter Care Teams Vc++ Developer Relationship Specialty Start Date End Date Michelle Silveira PA PCP - General 05/09/10 08/04/15 documented as of this encounter
--- OUTSIDE RECORDS SUMMARY | 2024-07-23 02:09 | XMS_ITS | Encounter Summary ---
Author Organization [facility] Address [facility] [place] [address] Care Team Providers Care Bar Porter Name Role Phone RaoulMichelle YADIRA Primary Care Provider Reason for Visit * Reason Comments Procedure Encounter Details Date Type Department Care Team (Late st Contact Info) Description 08/26/2012 2:30 PM EDT Office Visit Dermatology [address] [place] [address] [address] [place] [address] Miles Bowman MD [address], [place] [address] Nevus (Primary Dx) Social History Tobacco Use [...] for suture removal by Dr. Bowman in [facility]. Copy: Manjit Zavala Note: Reassured patient [...] AM EDT Office Visit [place] [address] Josephine Espinosa MD [facility] [place] [address] documented as of this encounter Procedures Procedure [...] unspecified documented in this encounter Care Teams Bar Porter Relationship Specialty Start Date End Date Michelle iSlveira PA PCP - General 05/09/10 08/04/15 documented as of this encounter
--- OUTSIDE RECORDS SUMMARY | 2024-07-23 02:09 | XMS_ITS | Encounter Summary ---
Author Organization [facility] Address [facility] [place] [address] Care Team Providers Care Fitting Supervisor Name Role Phone Michelle Silveira YADIRA Primary Care Provider [phone] Reason for Visit * Reason Comments Palpitations Encounter Details Date Type Department Care Team (Late Contact Info) Description 04/15/2012 9:15 AM EDT Office Visit [address] [address] Jeevan Orourke MD [facility] [place] [address] Palpitations (Primary Dx) Social History Tobacco Use [...] 11:00 AM EDT Office [place] [address] Josephine Espinosa MD [facility] [place] [address] documented as of this encounter Visit Diagnoses Diagnosis Palpitations- Primary documented in this encounter Care Teams Fitting Supervisor Relationship Specialty Start Date End Date Michelle Silveira PA PCP - General 05/09/10 08/04/15 documented as of this encounter
--- OUTSIDE RECORDS SUMMARY | 2024-07-23 02:09 | XMS_ITS | Encounter Summary ---
Author Organization [facility] Address [facility] [address] Care Team Providers Care Grain Shipper Name Role Phone Raoul Michelle YADIRA Primary Care Provider [phone] Encounter Details Date Type Department Care Team (Late st Contact Info) Description 07/03/2013 2:30 PM EST Follow-Up Hematology Oncology at [address] [phone] El Bernardo MD [facility] [place] [address] Malignant 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 (Primary [...] with heterologous chondroid differentiation Tumor Grade: High Xvdcht-Swboa-Tvriyzpjea Score: 9 Tubular Differentiation: 3 Mitotic Rate: [...] same BRCA1 alteration found in her mother ([id number]). Prophylactic BSO 04/2013. Path - Right and left fallopian tubes and ovaries (bilateral salpingo-oophorectomy): No evidence of malignancy. 3. 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 We discussed that if she were positive, it would generally be recommended that she begin screening in her mid 20s so that if she wanted to wait until she were back from [place], that would be ok. We talked about screening colonoscopy which she is due for. Given that she has recently undergone oophorectomy, she wants to wait but will discuss further with Michelle Silveira, her PCP. documented in this encounter Plan of Treatment Upcoming Encounters Date Type Department Care Team (Late st Contact Info) Description 09/03/2024 11:00 AM EDT Office Visit [place] [address] Josephine Espinosa MD [facility] [place] [address] documented as of this encounter Visit Diagnoses Diagnosis Malignant 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- Primary Malignant neoplasm of breast (female), unspecified site documented in this encounter Care Teams Grain Shipper Relationship Specialty Start Date End Date Michelle Silveira PA PCP - General 05/09/10 08/04/15 documented as of this encounter
--- OUTSIDE RECORDS SUMMARY | 2024-07-23 02:09 | XMS_ITS | Encounter Summary ---
Author Organization [facility] Address [facility] [place] [address] Care Team Providers Care Lithographic Photographer Apprentice Name Role Phone Michelle Silveira YADIRA Primary Care Provider [phone] Reason for Visit * Reason Onset Date Comments Questions 05/29/2012 Encounter Details Date Type Department Care Team (Late st Contact Info) Description 05/29/2012 Telephone Cardiology at [address] [address] Jeevan Orourke MD [facility] [place] [address] Questions Social History Tobacco Use Types Packs/Day [...] 11:00 AM EDT Office [place] [address] Josephine Espinosa MD [facility] [place] [address] documented as of this encounter Visit Diagnoses Not on filedocumented in this encounter Care Teams Lithographic Photographer Apprentice Relationship Specialty Start Date End Date Michelle Silveira PA PCP - General 05/09/10 08/04/15 documented as of this encounter
--- OUTSIDE RECORDS SUMMARY | 2024-07-23 02:09 | XMS_ITS | Encounter Summary ---
Author Organization [facility] Address [facility] [place] [address] Care Team Providers Care Software Validation Technician Name Role Phone Raoul Michelle YADIRA Primary Care Provider [phone] Reason for Visit * Reason Comments Skin Check Encounter Details Date Type Department Care Team (Late st Contact Info) Description 08/25/2012 9:00 AM EDT Office Visit Dermatology [address] [facility] [address] [place] [address] Miles Bowman MD [address], [place] [address] Nevus (Primary Dx) Social History Tobacco Use [...] patient is a good surgical candidate. Copy: Manjit Zavala documented in this encounter Plan of Treatment Upcoming Encounters Date Type Department Care Team (Late st Contact Info) Description 09/03/2024 11:00 AM EDT Office [place] [address] Josephine Espinosa MD [facility] [place] [address] documented as of this encounter Visit Diagnoses Diagnosis Nevus- Primary Benign neoplasm of skin, site unspecified documented in this encounter Care Teams Software Validation Technician Relationship Specialty Start Date End Date Michelle Silveira PA PCP - General 05/09/10 08/04/15 documented as of this encounter
--- OUTSIDE RECORDS SUMMARY | 2024-07-23 02:09 | XMS_ITS | Encounter Summary ---
Author Organization [facility] Address [facility] [place] [address] Care Team Providers Care Building Consultant Name Role Phone Michelle Silveira Primary Care Provider [phone] Encounter Details Date Type Department Care Team (Latest Contact Info) Description 06/24/2012 2:05 PM EST - 06/24/2012 11:59 PM EST Hospital Encounter MRI at [facility] [place] [address] Malignant neoplasm of breast (female), unspecified site [...] EDT Office [place] [address] Josephine Espinosa MD [facility] [place] [address] documented as of this encounter Procedures Procedure [...] Visualization not adequate bilaterally. El Bernardo MD [facility] MRI ORDERABLES documented in this encounter Visit [...] Intravenous, ONCE PRN, 1 dose, Starting on 06/24/12 at 0619, Until Tu06/24/12 at 1430, Per Protocol, Routine Given 06/24/2012 2:30 PM EST 18 mLs documented in this encounter Care Teams Building Consultant Relationship Specialty Start Date End Date Michelle Silveira PA PCP - General 05/09/10 08/04/15 documented as of this encounter
--- OUTSIDE RECORDS SUMMARY | 2024-07-23 02:09 | XMS_ITS | Encounter Summary ---
Author Organization [facility] Address [facility] [place] [address] Care Team Providers Care Design Engineer Products Name Role Phone Raoul Michelle YADIRA Primary Care Provider [phone] Reason for Visit * Reason Comments Injections Encounter Details Date Type Department Care Team ([facility] st Contact Info) Description 01/23/2013 9:30 AM EDT Office Visit Allergy at [facility] [place] [address] ALLERGY, INJECTION Allergy to mites (Primary Dx); [...] Rxn: none Extract: Mix B (Arnol Grass,Cat,Tree Mix,[place] Mix,Dog) Dilution: Silver (0.2bau/ml,0.1bau/ml,1:2,000,000w/v,1:2,000,000w/v,1,1,000,0000w/v) Dose: 0.3cc Site:left arm sc Rxn: none Pt was observed here in the waiting area for 30 minutes. NO adverse side effects were noted. Pt ambulated from clinic in stable condition. documented in this encounter Plan of Treatment Upcoming Encounters Date Type Department Care Team (Late st Contact Info) Description 09/03/2024 11:00 AM EDT Office [place] [address] Josephine Espinosa MD [facility] [place] [address] documented as of this encounter Visit Diagnoses Diagnosis Allergy to mites- Primary Allergy, unspecified not elsewhere classified Allergic rhinitis, cause unspecified Allergic rhinitis due to pollen Allergy to cats Allergic rhinitis due to other allergen Allergy to dog dander Allergic rhinitis due to animal (cat) (dog) hair and dander documented in this encounter Care Teams Design Engineer Products Relationship Specialty Start Date End Date Michelle Silveira PA PCP - General 05/09/10 08/04/15 documented as of this encounter
--- OUTSIDE RECORDS SUMMARY | 2024-07-23 02:09 | XMS_ITS | Encounter Summary ---
Author Organization [facility] Address [facility] [place] [address] Care Team Providers Care Battery Charger Conveyor Line Name Role Phone Raoul Michelle MAY Primary Care Provider [phone] Encounter Details Date Type Department Care Team (Latest Contact Info) Description 06/29/2013 3:34 PM EST - 06/29/2013 11:59 PM EST Hospital Encounter Mammography at [facility] [place] [address] CLINIC, DR JAN Bernardo, El Mariee MD [facility] [place] [address] Malignant neoplasm of breast (female), unspecified site; [...] 04/21/2013 03/11/2017 Estradiol (VAGIFEM) 10 mcg vaginal tabletIndications:Duncan pause Place 1 tablet vaginally twice a [...] 11:00 AM EDT Office [place] [address] Josepihne Espinosa MD [facility] [place] [address] documented as of this encounter Procedures Procedure [...] breast documented in this encounter Care Teams Battery Charger Conveyor Line Relationship Specialty Start Date End Date Michelle Silveira PA PCP - General 05/09/10 08/04/15 documented as of this encounter
--- OUTSIDE RECORDS SUMMARY | 2024-07-23 02:09 | XMS_ITS | Encounter Summary ---
Author Organization [facility] Address [facility] [address] Care Team Providers Care Molding Machine Operator Helper Name Role Phone Raoul Michelle YADIRA Primary Care Provider [phone] Encounter Details Date Type Department Care Team (Latest Contact Info) Description 04/21/2013 12:29 PM EST - 04/21/2013 8:54 PM EST Hospital [place] [phone] Carly Chamberlain MD [facility] [place] [address] Postoperative state Discharge Disposition: Home Social History [...] PATIENT DISCHARGE INSTRUCTIONS Gynecology Oncology phone number: [phone] Call your doctor if you develop: --A [...] 04/21/2013 06/01/2013 Estradiol (VAGIFEM) 10 mcg vaginal tabletIndications:[place] pause Place 1 tablet vaginally twice a [...] for Visit: 52 y.o. 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 She has had chemotherapy induced menopause, with last bleeding occurring in February of 2008. She has not had any bleeding since then. She has no hot flashes. Other than vaginal dryness, she has no chief fishery division complaints. Ty is a 52-year-old woman who is status post a left breast lumpectomy and sentinal lymphadenectomy 02/19. 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 All margins were greater than 1 cm. Zero of four sentinel nodes were positive. On 03/28/05, she began adjuvant chemotherapy (AC) and completed this 07/2005. She completed XRT November 2005. Her breast cancer was ER/GA and HER-2 negative. She has tested positive [...] Ellington MD - 04/21/2013 6:10 PM EST [facility] Operative Note Patient Name: Ty Hernández : [id number] MR#: [id number] Case Date: 04/21/2013 Surgeon: Surgeon(s) and Role: [...] Operative Note Patient Name: Ty Hernández : [id number] MR#: [id number] Case Date: 04/21/2013 Surgeon: Surgeon(s) and Role: [...] Office Visit [place] [address] Josephine Espinosa MD [facility] [place] [address] documented as of this encounter Procedures Procedure Name Priority Date/Time Associated Diagnosis Comments NON-CUSTOMER SUCCESS SPECIALIST FINAL REPORT Routine 04/21/2013 4:46 PM EST SURGICAL PATHOLOGY REPORT Routine 04/21/2013 4:46 PM EST SPECIMEN TO PATHOLOGY Routine 04/21/2013 4:46 PM EST CYTOPATHOLOGY NON-GYNECOLOGICAL Routine 04/21/2013 4:46 PM EST LAPAROSCOPY, REMOVAL OF ADNEXA (WRVU 11.35) 04/21/2013 4:00 PM EST H/O BREAST CANCER documented in this encounter Results * Surgical Pathology Report (04/21/2013 4:46 PM EST) Surgical Pathology Report ? [facility] ? Provider: ?? CARLY CHAMBERLAIN ?Pt. Name: ?? TY HERNÁNDEZ ? Acc #: ?[id number] ?Pt. ? Col Date: ?? 04/21/2013 ? [...] cancer; high risk for ovarian cancer ? [facility] ? Provider: ?? CARLY CHAMBERLAIN ?Pt. Name: ?? TY HERNÁNDEZ ? Acc #: ?[id number] ?Pt. ? Col Date: ?? 04/21/2013 ? /Sex: ?1960,(52 years),Female ? Rec Date: ?? 04/21/2013 ? LOC: ?SDP ? SURGICAL PATHOLOGY ? Clinical Diagnosis: ? Same KANDY ASENCIOIUM 04/21/2013 4:46 PM EST Carly Chamberlain MD PATHOLOGY/CYTOLOGY O RDERABLES [facility] * Non-Manager Intelligence Final Report (04/21/2013 4:46 PM EST) Non-Manager Intelligence Final Report ? [facility] ? Provider: ?? CARLY CHAMBERLAIN ?Pt. Name: ?? TY HERNÁNDEZ ? Acc #: ?[id number] ?Pt. ? Col Date: ?? 04/21/2013 ? [...] EST Carly Chamberlain MD PATHOLOGY/CYTOLOGY O NARENDRA KANDY FRANCIS * Cytopathology Non-Gynecological (04/21/2013 4:46 PM EST) AP Specimen 04/21/2013 4:46 PM EST 04/21/2013 4:46 PM EST Narrative KANDY FRANCIS - 04/21/2013 4:46 PM EST Specimen requisition ordered. ??Separate Pathology report to follow Carly Chamberlain MD PATHOLOGY/CYTOLOGY O NARENDRA Performing Organization Address [facility]/State/[facility] Co de Phone Number KANDY FRANCIS * Specimen to Pathology (surgical or derm) (04/21/2013 4:46 PM EST) AP Specimen 04/21/2013 4:46 PM EST 04/21/2013 4:46 PM EST Narrative KANDY FRANCIS - 04/21/2013 4:46 PM EST Specimen requisition ordered. ??Separate Pathology report to follow Carly Chamberlain MD PATHOLOGY/CYTOLOGY O NARENDRA Performing Organization Address [facility] Co de Phone Number KANDY FRANCIS [...] RN) documented in this encounter Care Teams Molding Machine Operator Helper Relationship Specialty Start Date End Date Michelle Silveira PA PCP - General 05/09/10 08/04/15 documented as of this encounter
--- OUTSIDE RECORDS SUMMARY | 2024-07-23 02:09 | XMS_ITS | Encounter Summary ---
Author Organization [facility] Address [facility] [place] [address] Care Team Providers Care Information Technology Data Analyst Name Role Phone Raoul Michelle YADIRA Primary Care Provider [phone] Reason for Visit * Reason Comments Gynecologic Exam Encounter Details Date Type Department Care Team (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 She has had chemotherapy induced menopause, with last bleeding occurring in February of 2008. She has not had any bleeding since then. Shehas no hot flashes. Other than vaginal dryness, she has no service crew supervisor complaints. Rebeca is a 52-year-old woman who is status post a left breast lumpectomy and sentinal lymphadenectomy 02/19. 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 All margins were greater than 1 cm. Zero of four sentinel nodes were positive. On 03/28/05, she began adjuvant chemotherapy (AC) and completed this 07/2005. She completed XRT November 2005. Her breast cancer was ER/OH and HER-2 negative. She has tested positive [...] WARNER MD (Hematology and Oncology Fellow) Pager [phone] I saw and evaluated the patient with [...] 11:00 AM EDT Office [place] [address] Josephine Espinosa MD [facility] [place] [address] documented as of this encounter Visit Diagnoses Diagnosis BRCA1 positive Genetic susceptibility to malignant neoplasm of breast documented in this encounter Care Teams Information Technology Data Analyst Relationship Specialty Start Date End Date Michelle Silveira PA PCP - General 05/09/10 08/04/15 documented as of this encounter
--- OUTSIDE RECORDS SUMMARY | 2024-07-23 02:09 | XMS_ITS | Encounter Summary ---
Author Organization [facility] Address [facility] [address] Care Team Providers Care Sorority Mother Name Role Phone Michelle Silveira YADIRA Primary Care Provider [phone] Reason for Visit * Reason Onset Date Comments Other 12/14/2011 Encounter Details Date Type Department Care Team (Late st Contact Info) Description 12/14/2011 Telephone [place] [address] Carly Solano MD [facility] DR [place] [address] Other Social History Tobacco Use Types Packs/Day [...] 11:00 AM EDT Office [place] [address] Josephine Espinosa MD [facility] [place] [address] documented as of this encounter Visit Diagnoses Diagnosis BRCA1 positive- Primary Genetic susceptibility to malignant neoplasm of breast documented in this encounter Care Teams Sorority Mother Relationship Specialty Start Date End Date Michelle Silveira PA PCP - General 05/09/10 08/04/15 documented as of this encounter
--- OUTSIDE RECORDS SUMMARY | 2024-07-23 02:09 | XMS_ITS | Encounter Summary ---
Author Organization [facility] Address [facility] [place] [address] Care Team Providers Care Medical/Surgery Registered Nurse Name Role Phone Michelle Silveira YADIRA Primary Care Provider [phone] Encounter Details Date Type Department Care Team (Late st Contact Info) Description 11/03/2012 [place] [address] Ana Swanson MD [facility] DR ALLERGY [place] [address] Social History Tobacco Use Types Packs/Day Years [...] 11:00 AM EDT Office [place] [address] Josephine Espinosa MD [facility] [place] [address] documented as of this encounter Visit Diagnoses Not on filedocumented in this encounter Care Teams Medical/Surgery Registered Nurse Relationship Specialty Start Date End Date Michelle Silveira PA PCP - General 05/09/10 08/04/15 documented as of this encounter
--- OUTSIDE RECORDS SUMMARY | 2024-07-23 02:09 | XMS_ITS | Encounter Summary ---
Author Organization [facility] Address [facility] [place] [address] Care Team Providers Care Arresting Gear Operator Name Role Phone Raoul Michelle YADIRA Primary Care Provider [phone] Encounter Details Date Type Department Care Team (Latest Contact Info) Description 09/05/2011 2:00 PM EDT Office Visit Cardiology at [address] [place] [address] Sydney Nix, LIZABETH [facility] [place] [address] Cardiomyopathy (Primary Dx) Discharge Disposition: Home Social [...] swelling. She went to the ED at [facility]. She was given IV and po steroids. [...] Depression ??? Chest pain A. Stress test [facility] 06/28: exercised to 10.1 METs and 152 [...] 11:00 AM EDT Office [place] [address] Josephine Espinosa MD [facility] [place] [address] documented as of this encounter Visit Diagnoses Diagnosis Cardiomyopathy- Primary Other primary cardiomyopathies documented in this encounter Care Teams Arresting Gear Operator Relationship Specialty Start Date End Date Michelle Silveira PA PCP - General 05/09/10 08/04/15 documented as of this encounter
--- OUTSIDE RECORDS SUMMARY | 2024-07-23 02:09 | XMS_ITS | Encounter Summary ---
Author Organization [facility] Address [facility] [place] [address] Care Team Providers Care Cash Register Servicer Name Role Phone Raoul Michelle MAY Primary Care Provider [phone] Encounter Details Date Type Department Care Team (Latest Contact Info) Description 06/24/2012 1:27 PM EST - 06/24/2012 11:59 PM EST Hospital Encounter Mammography at [facility] [place] [address] CLINIC, DR JAN Bernardo, El Mariee MD [facility] [place] [address] Malignant neoplasm of breast (female), unspecified site [...] 11:00 AM EDT Office [place] [address] Josephine Espinosa MD [facility] [place] [address] documented as of this encounter Procedures Procedure [...] direct digital capture. The exam was evaluated byMaxtena Version 8.3.17. In addition to the routine [...] site documented in this encounter Care Teams Cash Register Servicer Relationship Specialty Start Date End Date Michelle Silveira PA PCP - General 05/09/10 08/04/15 documented as of this encounter
--- OUTSIDE RECORDS SUMMARY | 2024-07-23 02:09 | XMS_ITS | Encounter Summary ---
Author Organization [facility] Address [facility] [place] [address] Care Team Providers Care First Mate Name Role Phone Raoul Michelle YADIRA Primary Care Provider [phone] Reason for Visit * Reason Onset Date Comments Questions 04/28/2013 Encounter Details Date Type Department Care Team ([facility] st Contact Info) Description 04/28/2013 Telephone Gynecology Oncology at [facility] [place] [place] [address] Brittany Dorado, RN Questions Social History Tobacco [...] days. States she was told by her technical cable jointer to try black cohosh but she doesn't [...] 11:00 AM EDT Office [place] [address] Josephine Espinosa MD [facility] [place] [place] [address] documented as of this encounter Visit Diagnoses Not on filedocumented in this encounter Care Teams First Mate Relationship Specialty Start Date End Date Michelle Silveira PA PCP - General 05/09/10 08/04/15 documented as of this encounter
--- OUTSIDE RECORDS SUMMARY | 2024-07-23 02:09 | XMS_ITS | Encounter Summary ---
Author Organization [facility] Address [facility] [place] [address] Care Team Providers Care Cns Name Role Phone RaoulMichelle YADIRA Primary Care Provider [phone] Encounter Details Date Type Department Care Team (Late st Contact Info) Description 06/24/2012 [place] [address] Dipti Cedeño MSW Social History Tobacco Use Types Packs/Day Years [...] 10:42 AM EST Office of Care Management/Continuing Senior Accounting Specialist Pager #[phone] A: Ms. Hernández seen prior to imaging. She had hoped to be able to have MRI etc. in [facility] buther provider thought she would be better served coming to the same facility. Gas card given at her request. She was doing well today. P: Continue to assist with psychosocial needs documented in this encounter Plan of Treatment Upcoming Encounters Date Type Department Care Team (Late st Contact Info) Description 09/03/2024 11:00 AM EDT Office Visit [place] [address] Josephine Espinosa MD [facility] [place] [address] documented as of this encounter Visit Diagnoses Not on filedocumented in this encounter Care Teams Cns Relationship Specialty Start Date End Date Michelle Silveira PA PCP - General 05/09/10 08/04/15 documented as of this encounter
--- OUTSIDE RECORDS SUMMARY | 2024-07-23 02:09 | XMS_ITS | Encounter Summary ---
Author Organization [facility] Address [facility] [place] [address] Care Team Providers Care Custodian Manager Name Role Phone Raoul Michelle YADIRA Primary Care Provider [phone] Reason for Visit * Reason Comments Post Op Encounter Details Date Type Department Care Team ([facility] st Contact Info) Description 06/01/2013 1:20 PM EST Office Visit [place] [address] Carly Solano MD [facility] DR GYNEC[place] [address] BRCA1 positive Discharge Disposition: Home Social History [...] Depression ??? Chest pain A. Stress test [facility] 06/28: exercised to 10.1 METs and [...] hours as needed for Pain. 04/21/13 06/01/13 Saud Milligan MD Estradiol (VAGIFEM) [address] 1 tablet vaginally twice a week. 01/22/13 Carly Solano MD olopatadine (PATANOL) 0.1 % ophthalmic solution Place 1 drop into both eyes 3 times daily as neededfor Allergies. 11/18/12 Ana Swnason MD valACYclovir (VALTREX) 500 mg tablet Take [...] her pathology. Plan: Patient to have annual webbing supervisor exams. 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 documented in this encounter Plan of Treatment Upcoming Encounters Date Type Department Care Team (Late st Contact Info) Description 09/03/2024 11:00 AM EDT Office [place] [address] Josephine Espinosa MD [facility] [place] [address] documented as of this encounter Visit Diagnoses Diagnosis BRCA1 positive Genetic susceptibility to malignant neoplasm of breast documented in this encounter Care Teams Custodian Manager Relationship Specialty Start Date End Date Michelle Silveira PA PCP - General 05/09/10 08/04/15 documented as of this encounter
--- OUTSIDE RECORDS SUMMARY | 2024-07-23 02:09 | XMS_ITS | Encounter Summary ---
Author Organization [facility] Address [facility] [place] [address] Care Team Providers Care Geophysical Laboratory Chief Name Role Phone Raoul Michelle YADIRA Primary Care Provider [phone] Reason for Visit * Reason Comments Injections Encounter Details Date Type Department Care Team ([facility] st Contact Info) Description 01/01/2013 10:15 AM EDT Office Visit Allergy at [facility] [place] [address] ALLERGY, INJECTION Allergy to mites (Primary Dx); [...] Rxn: none Extract: Mix B (Arnol Grass,Cat,Tree Mix,[place] Mix,Dog) Dilution: Silver (0.2bau/ml,0.1bau/ml,1:2,000,000w/v,1:2,000,000w/v,1,1,000,0000w/v) Dose: 0.2 cc [...] 11:00 AM EDT Office [place] [address] Josephine Espinosa MD [facility] [place] [address] documented as of this encounter Visit Diagnoses Diagnosis Allergy to mites- Primary Allergy, unspecified not elsewhere classified Allergic rhinitis due to pollen Allergic rhinitis, cause unspecified Allergy to dog dander Allergic rhinitis due to animal (cat) (dog) hair and dander documented in this encounter Care Teams Geophysical Laboratory Chief Relationship Specialty Start Date End Date Michelle Silveira PA PCP - General 05/09/10 08/04/15 documented as of this encounter
--- OUTSIDE RECORDS SUMMARY | 2024-07-23 02:09 | XMS_ITS | Encounter Summary ---
Author Organization [facility] Address [facility] [place] [address] Care Team Providers Care Surveying Or Spatial Science Technician Name Role Phone Raoul Michelle YADIRA Primary Care Provider [phone] Encounter Details Date Type Department Care Team (Late st Contact Info) Description 04/21/2013 2:10 PM EST - 04/21/2013 4:35 PM EST Surgery [place] [address] Carly Chamberlain MD [facility] [place] [address] LAPAROSCOPY, REMOVAL OF ADNEXA (WRVU 11.35) Social [...] PATIENT DISCHARGE INSTRUCTIONS Gynecology Oncology phone number: [phone] Call your doctor if you develop: --A [...] 04/21/2013 06/01/2013 Estradiol (VAGIFEM) 10 mcg vaginal tabletIndications:[place] pause Place 1 tablet vaginally twice a [...] for Visit: 52 y.o. Female presents to [facility] for RRBSO History of Present Illness: Bakari Hernández returns today for annual counseling specialist evaluation. She has had chemotherapy induced menopause, with last bleeding occurring in February of 2008. She has not had any bleeding since then. She has no hot flashes. Other than vaginal dryness, she has no counseling specialist complaints. Ty is a 52-year-old woman who [...] encounter Miscellaneous Notes * Op Note - eKn Ellington MD - 04/21/2013 6:10 PM EST [facility] Operative Note Patient Name: Ty Hernández : [id number] MR#: [id number] Case Date: 04/21/2013 Surgeon: Surgeon(s) and Role: [...] Operative Note Patient Name: Ty Hernández : [id number] MR#: [id number] Case Date: 04/21/2013 Surgeon: Surgeon(s) and Role: [...] 11:00 AM EDT Office [place] [address] Josephine Espinosa MD [facility] [place] [address] documented as of this encounter Procedures Procedure Name Priority Date/Time Associated Diagnosis Comments NON-TRANSACTION COORDINATOR FINAL REPORT Routine 04/21/2013 4:46 PM EST SURGICAL PATHOLOGY REPORT Routine 04/21/2013 4:46 PM EST SPECIMEN TO PATHOLOGY Routine 04/21/2013 4:46 PM EST CYTOPATHOLOGY NON-GYNECOLOGICAL Routine 04/21/2013 4:46 PM EST LAPAROSCOPY, REMOVAL OF ADNEXA (WRVU 11.35) 04/21/2013 4:00 PM EST H/O BREAST CANCER documented in this encounter Results * Surgical Pathology Report (04/21/2013 4:46 PM EST) Surgical Pathology Report ? [facility] ? Provider: ?? CARLY CHAMBERLAIN ?Pt. Name: ?? TY HERNÁNDEZ ? Acc #: ?[id number] ?Pt. ? Col Date: ?? 04/21/2013 ? [...] cancer; high risk for ovarian cancer ? [facility] ? Provider: ?? CARLY CHAMBERLAIN ?Pt. Name: ?? TY HERNÁNDEZ ? Acc #: ?[id number] ?Pt. ? Col Date: ?? 04/21/2013 ? /Sex: ?1960,(52 years),Female ? Rec Date: ?? 04/21/2013 ? LOC: ?SDP ? SURGICAL PATHOLOGY ? Clinical Diagnosis: ? Same [facility] 04/21/2013 4:46 PM EST Carly Chamberlain MD PATHOLOGY/CYTOLOGY O RDERABLES [facility] * Non-Roll Trucker Final Report (04/21/2013 4:46 PM EST) Non-Roll Trucker Final Report ? [facility] ? Provider: ?? CARLY CHAMBERLAIN ?Pt. Name: ?? TY HERNÁNDEZ ? Acc #: ?[id number] ?Pt. ? Col Date: ?? 04/21/2013 ? [...] Based Prep 1; Cell Block 1. [facility] 04/21/2013 4:46 PM EST Carly Chamberlain MD PATHOLOGY/CYTOLOGY O RDERABLES [facility] * Cytopathology Non-Gynecological (04/21/2013 4:46 PM EST) AP Specimen 04/21/2013 4:46 PM EST 04/21/2013 4:46 PM EST Narrative [facility] - 04/21/2013 4:46 PM EST Specimen requisition ordered. ??Separate Pathology report to follow Carly Chamberlain MD PATHOLOGY/CYTOLOGY O NARENDRA Performing Organization Address [facility] Co de Phone Number [facility] * Specimen to Pathology (surgical or derm) (04/21/2013 4:46 PM EST) AP Specimen 04/21/2013 4:46 PM EST 04/21/2013 4:46 PM EST Narrative [facility] - 04/21/2013 4:46 PM EST Specimen requisition ordered. ??Separate Pathology report to follow Carly Chamberlain MD PATHOLOGY/CYTOLOGY O NARENDRA Performing Organization Address [facility] Co de Phone Number [facility] documented in this encounter Visit Diagnoses [...] RN) documented in this encounter Care Teams Surveying Or Spatial Science Technician Relationship Specialty Start Date End Date Michelle Silveira PA PCP - General 05/09/10 08/04/15 documented as of this encounter
--- OUTSIDE RECORDS SUMMARY | 2024-07-23 02:09 | XMS_ITS | Encounter Summary ---
Author Organization [facility] [place] [address] Care Team Providers Care Sensitizer Name Role Phone Michelle Silveira Primary Care Provider [phone] Encounter Details Date Type Department Care Team (Late st Contact Info) Description 08/20/2011 Orders Only Hematology [place] [address] Mode Guerrero MD Social History Tobacco Use Types Packs/Day [...] AM EDT Office [place] [address] Josephine Espinosa MD [facility] [place] [address] documented as of this encounter Visit Diagnoses Not on filedocumented in this encounter Care Teams Sensitizer Relationship Specialty Start Date End Date Michelle Silveira PA PCP - General 05/09/10 08/04/15 documented as of this encounter
--- OUTSIDE RECORDS SUMMARY | 2024-07-23 02:09 | XMS_ITS | Encounter Summary ---
Author Organization [facility] [place] [address] Care Team Providers Care Sociology Adjunct Instructor Name Role Phone Michelle Silveira YADIRA Primary Care Provider [phone] Reason for Visit * Reason Onset Date Comments Other 12/05/2012 Encounter Details Date Type Department Care Team (Late Contact Info) Description 12/05/2012 [place] [phone] Ankita Guzmán LPN Other Social History Tobacco [...] 11:00 AM EDT Office [place] [address] Josephine Espinosa MD [facility] [place] [address] documented as of this encounter Visit Diagnoses Not on filedocumented in this encounter Care Teams Sociology Adjunct Instructor Relationship Specialty Start Date End Date Michelle Silveira PA PCP - General 05/09/10 08/04/15 documented as of this encounter
--- OUTSIDE RECORDS SUMMARY | 2024-07-23 02:09 | XMS_ITS | Encounter Summary ---
Author Organization [facility] [place] [address] Care Team Providers Care Water Vessel Captain Name Role Phone Michelle Silveira YADIRA Primary Care Provider [phone] Reason for Visit * Reason Onset Date Comments Other 02/12/2013 allergy injectio ns Encounter Details Date Type Department Care Team (Late st Contact Info) Description 02/12/2013 [place] [phone] Ankita Guzmán LPN Other (allergy injections) Social [...] 11:00 AM EDT Office Visit [place] [phone] Josephine Espinosa MD [facility] [place] [address] documented as of this encounter Visit Diagnoses Not on filedocumented in this encounter Care Teams Water Vessel Captain Relationship Specialty Start Date End Date Michelle Silveira PA PCP - General 05/09/10 08/04/15 documented as of this encounter
--- OUTSIDE RECORDS SUMMARY | 2024-07-23 02:09 | XMS_ITS | Encounter Summary ---
Author Organization [facility] Address [facility] [place] [address] Care Team Providers Care Anatomy Professor Name Role Phone RaoulMichelle YADIRA Primary Care Provider Reason for Visit * Reason Onset Date Comments Other 10/22/2011 Encounter Details Date Type Department Care Team (Late st Contact Info) Description 10/22/2011 Telephone Cardiology at [address] [phone] Jeevan Orourke MD [facility] [place] [address] Other Social History Tobacco Use Types Packs/Day [...] 11:00 AM EDT Office [place] [phone] Josephine Espinosa MD [facility] [place] [address] documented as of this encounter Visit Diagnoses Not on filedocumented in this encounter Care Teams Anatomy Professor Relationship Specialty Start Date End Date Michelle Silveira PA PCP - General 05/09/10 08/04/15 documented as of this encounter
--- OUTSIDE RECORDS SUMMARY | 2024-07-23 02:09 | XMS_ITS | Encounter Summary ---
Author Organization [facility] [place] [address] Care Team Providers Care Operation Manager Name Role Phone Michelle Silveira YADIRA Primary Care Provider [phone] Reason for Visit * Reason Comments Allergic Rhinitis Encounter Details Date Type Department Care Team ([facility] st Contact Info) Description 10/28/2012 2:15 PM EDT [place] [address] Ana Swanson MD [facility] [place] [address] Rhinitis, allergic (Primary Dx) Discharge Disposition: Home [...] h.s. I will ask Dr Orourke, her deli associate, if the beta dmitry could be stopped [...] 11:00 AM EDT Office [place] [address] Josephine Espinosa MD [facility] [place] [address] documented as of this encounter Visit Diagnoses Diagnosis Rhinitis, allergic- Primary Allergic rhinitis, cause unspecified documented in this encounter Care Teams Operation Manager Relationship Specialty Start Date End Date Michelle Silveira PA PCP - General 05/09/10 08/04/15 documented as of this encounter
--- OUTSIDE RECORDS SUMMARY | 2024-07-23 02:09 | XMS_ITS | Encounter Summary ---
Author Organization [facility] [place] [address] Care Team Providers Care Audiology Doctor Name Role Phone Michelle Silveira Primary Care Provider [phone] Reason for Visit * Reason Onset Date Comments Medication Refill 01/21/2013 Encounter Details Date Type Department Care Team (Late st Contact Info) Description 01/21/2013 Refill [place] [address] Carly Solano MD [facility] [place] [address] Menopause (Primary Dx) Social History Tobacco Use [...] 11:00 AM EDT Office Visit [place] [address] Josephine Espinosa MD [facility] [place] [address] documented as of this encounter Visit Diagnoses Diagnosis Menopause- Primary Asymptomatic postmenopausal status (age-related) (natural) documented in this encounter Care Teams Audiology Doctor Relationship Specialty Start Date End Date Michelle Silveira PA PCP - General 05/09/10 08/04/15 documented as of this encounter
--- OUTSIDE RECORDS SUMMARY | 2024-07-23 02:09 | XMS_ITS | Encounter Summary ---
Author Organization [facility] [place] [address] Care Team Providers Care Rebar Bender Name Role Phone Michelle Silveira YADIRA Primary Care Provider [phone] Encounter Details Date Type Department Care Team (Late st Contact Info) Description 11/18/2012 Orders [place] [address] Ana Swanson MD [facility] DR ALLERGY [place] [address] Social History Tobacco Use Types Packs/Day Years [...] PM EDT IMMUNOTHERAPY PRESCRIPTION AND PREPARATION NOTE [facility]; Allergy Clinic NAME: Rebeca Hernández : 1960 [...] Tree Mix 1:20 1 1:200 Mcgraw Sandra. Zephyr Mx 1:20 1 1:200 Cat 10,000 BAU/mL [...] AM EDT Office Visit [place] [address] Josephine Espinosa MD [facility] [place] [address] documented as of this encounter Visit Diagnoses Not on filedocumented in this encounter Care Teams Rebar Bender Relationship Specialty Start Date End Date Michelle Silveira PA PCP - General 05/09/10 08/04/15 documented as of this encounter
--- OUTSIDE RECORDS SUMMARY | 2024-07-23 02:09 | XMS_ITS | Encounter Summary ---
Author Organization [facility] Address [facility] [place] [address] Care Team Providers Care Claims Agent Right Of Way Name Role Phone Michelle Silveira YADIRA Primary Care Provider [phone] Reason for Visit * Reason Comments Allergy Testing Encounter Details Date Type Department Care Team ([facility] st Contact Info) Description 11/18/2012 10:00 AM EDT [place] [address] Ana Swanson MD [facility] [address] [place] [address] Rhinitis (Primary Dx); Conjunctivitis, allergic; Rhinitis, allergic; [...] 11:00 AM EDT Office [place] [address] Josephine Espinosa MD [facility] [place] [address] documented as of this encounter Procedures Procedure [...] classified documented in this encounter Care Teams Claims Agent Right Of Way Relationship Specialty Start Date End Date Michelle Silveira PA PCP - General 05/09/10 08/04/15 documented as of this encounter
--- OUTSIDE RECORDS SUMMARY | 2024-07-23 02:09 | XMS_ITS | Encounter Summary ---
Author Organization [facility] [place] [address] Care Team Providers Care Deployment Engineer Name Role Phone Raoul Michelle YADIRA Primary Care Provider [phone] Reason for Visit * Reason Comments Injections Encounter Details Date Type Department Care Team ([facility] st Contact Info) Description 12/25/2012 10:15 AM EDT Office Visit Allergy at [facility] [place] [address] ALLERGY, INJECTION Allergy to mites (Primary Dx); [...] LPN - 12/25/2012 10:23 AM EDT Rebeca Farooq Edgar has come into the Allergy Clinic for allergy injection. No reported problems with the last injections. Antihistamine taken as directed. Epipen brought to appointment. Injections given per Dr Swanson's orders. Injections given:Building Extract: Mix A (F&P Mite,Mold Mix) Dilution: Silver (0.22au/ml,1:1,000,000w/v ) Dose: 0.1cc Site: left arm sc Rxn: none Extract: Mix B (Arnol Grass,Cat,Tree Mix,[place] Mix,Dog) Dilution: Silver (0.2bau/ml,0.1bau/ml,1:2,000,000w/v,1:2,000,000w/v,1,1,000,0000w/v) Dose: 0.1 cc [...] 11:00 AM EDT Office [place] [address] Josephine Espinosa MD [facility] [place] [address] documented as of this encounter Visit Diagnoses Diagnosis Allergy to mites- Primary Allergy, unspecified not elsewhere classified Allergic rhinitis, cause unspecified Allergic rhinitis due to pollen documented in this encounter Care Teams Deployment Engineer Relationship Specialty Start Date End Date Michelle Silveira PA PCP - General 05/09/10 08/04/15 documented as of this encounter
--- OUTSIDE RECORDS SUMMARY | 2024-07-23 02:09 | XMS_ITS | Encounter Summary ---
Author Organization [facility] Address [facility] [place] [address] Care Team Providers Care Quality Eng Name Role Phone Michelle Silveira YADIRA Primary Care Provider [phone] Encounter Details Date Type Department Care Team (Late Contact Info) Description 08/24/2011 Telephone Cardiology at [address] [phone] Sobeida Taylor RN Social History Tobacco Use Types Packs/Day [...] 11:00 AM EDT Office [place] [address] [facility] [place] [address] documented as of this encounter Visit Diagnoses Not on filedocumented in this encounter Care Teams Quality Eng Relationship Specialty Start Date End Date Michelle Silveira PA PCP - General 05/09/10 08/04/15 documented as of this encounter
--- OUTSIDE RECORDS SUMMARY | 2024-07-23 02:09 | XMS_ITS | Encounter Summary ---
Author Organization [facility] [address] Care Team Providers Care Passenger Representative Name Role Phone Michelle Silveira Primary Care Provider [phone] Reason for Visit * Reason Comments Suture / Staple Removal Encounter Details Date Type Department Care Team (Late st Contact Info) Description 09/02/2012 9:15 AM EDT Office Visit Dermatology [address] [place] [address] [address] [place] [address] Miles Bowman MD [address] [place] [address] RD, [facility] [place] [address] Nevus (Primary Dx) Social History Tobacco Use [...] 11:00 AM EDT Office Visit [place] [address] Josephine Espinosa MD [facility] [place] [address] documented as of this encounter Visit Diagnoses Diagnosis Nevus- Primary Benign neoplasm of skin, site unspecified documented in this encounter Care Teams Passenger Representative Relationship Specialty Start Date End Date Michelle Silveira PA PCP - General 05/09/10 08/04/15 documented as of this encounter
--- OUTSIDE RECORDS SUMMARY | 2024-07-23 02:09 | XMS_ITS | Encounter Summary ---
Author Organization [facility] Address [facility] [place] [address] Care Team Providers Care Off Premise Service Representative Name Role Phone Michelle Silveira Primary Care Provider [phone] Encounter Details Date Type Department Care Team (Late st Contact Info) Description 08/17/2011 Abstract Cardiology at [address] [address] Taylor Breaux, RN Social History Tobacco Use Types Packs/Day [...] 11:00 AM EDT Office [place] [address] Josephine Espinosa MD [facility] [place] [address] documented as of this encounter Visit Diagnoses Not on filedocumented in this encounter Care Teams Off Premise Service Representative Relationship Specialty Start Date End Date Michelle Silveira PA PCP - General 05/09/10 08/04/15 documented as of this encounter
--- OUTSIDE RECORDS SUMMARY | 2024-07-23 02:09 | XMS_ITS | Encounter Summary ---
Author Organization [facility] Address [facility] [place] [address] Care Team Providers Care Peripheral Edp Equipment Operator Name Role Phone Michelle Silveira YADIRA Primary Care Provider [phone] Encounter Details Date Type Department Care Team (Late st Contact Info) Description 12/09/2012 Telephone [place] [address] Dipti Cedeño MSW Social History [...] asking for gas assistance. We discussed the [facility] reimbursement program, she will call today to get registered to get reimbursement. We discussed the limits of assistance from the emergency fund. I will leave two cards to assist at the 6M desk for her to picker tomorrow. documented in this encounter Plan of Treatment Upcoming Encounters Date Type Department Care Team (Late st Contact Info) Description 09/03/2024 11:00 AM EDT Office [place] [address] Josephine Espinosa MD [facility] [place] [address] documented as of this encounter Visit Diagnoses Not on filedocumented in this encounter Care Teams Peripheral Edp Equipment Operator Relationship Specialty Start Date End Date Michelle Silveira PA PCP - General 05/09/10 08/04/15 documented as of this encounter
--- OUTSIDE RECORDS SUMMARY | 2024-07-23 02:09 | XMS_ITS | Encounter Summary ---
Author Organization [facility] Address [facility] [place] [address] Care Team Providers Care Meter Supervisor Name Role Phone Raoul Michelle YADIRA Primary Care Provider [phone] Reason for Visit * Reason Comments Injections Encounter Details Date Type Department Care Team ([facility] Contact Info) Description 01/30/2013 8:45 AM EDT Office Visit Allergy at [facility] [place] [address] ALLERGY, INJECTION Allergy to mites (Primary Dx); [...] Rxn: none Extract: Mix B (Arnol Grass,Cat,Tree Mix,Hope Mix,Dog) Dilution: Silver (0.2bau/ml,0.1bau/ml,1:2,000,000w/v,1:2,000,000w/v,1,1,000,0000w/v) Dose: 0.2cc Site:right arm sc Rxn: none Pt was observed here in the waiting area for 30 minutes. NO adverse side effects were noted. Pt ambulated from clinic in stable condition. documented in this encounter Plan of Treatment Upcoming Encounters Date Type Department Care Team (Late st Contact Info) Description 09/03/2024 11:00 AM EDT Office [place] [address] Josephine Espinosa MD [facility] [place] [address] documented as of this encounter Visit Diagnoses Diagnosis Allergy to mites- Primary Allergy, unspecified not elsewhere classified Allergic rhinitis, cause unspecified Allergic rhinitis due to pollen Allergy to cats Allergic rhinitis due to other allergen Allergy to dog dander Allergic rhinitis due to animal (cat) (dog) hair and dander documented in this encounter Care Teams Meter Supervisor Relationship Specialty Start Date End Date Michelle Silveira PA PCP - General 05/09/10 08/04/15 documented as of this encounter
--- OUTSIDE RECORDS SUMMARY | 2024-07-23 02:09 | XMS_ITS | Encounter Summary ---
Author Organization [facility] Address [facility] [place] [address] Care Team Providers Care Assistant Farm Operations Manager Name Role Phone Raoul Michelle YADIRA Primary Care Provider Reason for Visit * Reason Comments Injections Encounter Details Date Type Department Care Team ([facility] st Contact Info) Description 12/10/2012 10:15 AM EDT Office Visit Allergy at [facility] [place] [address] ALLERGY, INJECTION Allergy to mites (Primary Dx); [...] Rxn: none Extract: Mix B (Arnol Grass,Cat,Tree Mix,[place] Mix,Dog) Dilution: Green (2bau/ml,1bau/ml,1:200,000w/v,1:200,000w/v,1,100,000w/v) Dose: 0.05 cc [...] 11:00 AM EDT Office [place] [address] Josephine Espinosa MD [facility] [place] [address] documented as of this encounter Procedures Procedure [...] documented in this encounter Care Teams Assistant Farm Operations Manager Relationship Specialty Start Date End Date Michelle Silveira PA PCP - General 05/09/10 08/04/15 documented as of this encounter
--- OUTSIDE RECORDS SUMMARY | 2024-07-23 02:09 | XMS_ITS | Encounter Summary ---
Author Organization [facility] Address [facility] [place] [address] Care Team Providers Care Slag Worker Name Role Phone Michelle Silveira YADIRA Primary Care Provider [phone] Reason for Visit * Reason Comments Palpitations Encounter Details Date Type Department Care Team (Late st Contact Info) Description 10/12/2011 10:15 AM EDT Office Visit [address] [address] Jeevan Orourke MD [facility] [place] [address] Palpitations (Primary Dx) Social History Tobacco Use [...] 11:00 AM EDT Office [place] [address] Josephine Espinosa MD [facility] [place] [address] documented as of this encounter Visit Diagnoses Diagnosis Palpitations- Primary documented in this encounter Care Teams Slag Worker Relationship Specialty Start Date End Date Michelle Silveira PA PCP - General 05/09/10 08/04/15 documented as of this encounter
--- OUTSIDE RECORDS SUMMARY | 2024-07-23 02:09 | XMS_ITS | Encounter Summary ---
Author Organization [facility] Address [facility] [place] [address] Care Team Providers Care Director Of Critical Care Name Role Phone Raoul Michelle YADIRA Primary Care Provider [phone] Reason for Visit * Reason Onset Date Comments Urticaria 08/22/2011 Encounter Details Date Type Department Care Team (Late st Contact Info) Description 08/22/2011 Telephone Cardiology at [address] [phone] Sobeida Taylor RN Urticaria Social History Tobacco [...] EDT Office Visit [place] [address] Josephine Espinosa MD [facility] [place] [address] documented as of this encounter Visit Diagnoses Not on filedocumented in this encounter Care Teams Director Of Critical Care Relationship Specialty Start Date End Date Michelle Silveira PA PCP - General 05/09/10 08/04/15 documented as of this encounter
--- OUTSIDE RECORDS SUMMARY | 2024-07-23 02:09 | XMS_ITS | Encounter Summary ---
Author Organization [facility] [place] [address] Care Team Providers Care Customer Service Advisor Name Role Phone Michelle Silveira YADIRA Primary Care Provider [phone] Encounter Details Date Type Department Care Team (Late Contact Info) Description 11/26/2012 Telephone [place] [phone] Ankita Guzmán LPN Social History Tobacco Use [...] AM EDT Office Visit [place] [address] Josephine Espinosa MD [facility] [place] [address] documented as of this encounter Visit Diagnoses Not on filedocumented in this encounter Care Teams Customer Service Advisor Relationship Specialty Start Date End Date Michelle Silveira PA PCP - General 05/09/10 08/04/15 documented as of this encounter
--- OUTSIDE RECORDS SUMMARY | 2024-07-23 02:09 | XMS_ITS | Encounter Summary ---
Author Organization [facility] Address [facility] [place] [address] Care Team Providers Care Adobe Architect Name Role Phone Michelle Silveira Primary Care Provider [phone] Encounter Details Date Type Department Care Team (Late st Contact Info) Description 06/29/2013 4:24 PM EST - 06/29/2013 11:59 PM EST Hospital Encounter MRI at [facility] [place] [address] Social History Tobacco Use Types Packs/Day Years [...] 04/21/2013 03/11/2017 Estradiol (VAGIFEM) 10 mcg vaginal tabletIndications:[place] [address] 1 tablet vaginally twice a [...] 11:00 AM EDT Office Visit [place] [address] Josephine Espinosa MD [facility] [place] [address] documented as of this encounter Procedures Procedure [...] reviewed by the attending El Bernardo MD [facility] MRI ORDERABLES documented in this encounter Visit Diagnoses Not on filedocumented in this encounter Administered Medications Inactive Administered Medications - up to 3 most recent administrations Medication Order MAR Action Action Date Dose Rate Site gadopentetate dimeglumine (MAGNEVIST) 10 mmol/20 mL (469.01 mg/mL) injection 17 mL 17 mL, Intravenous, ONCE PRN, 1 dose, Starting on Sat06/29/13 at 1817, Until Sat06/29/13 at 1814, Per Protocol, Routine Given 06/29/2013 6:14 PM EST 17 mLs documented in this encounter Care Teams Adobe Architect Relationship Specialty Start Date End Date Michelle Silveira PA PCP - General 05/09/10 08/04/15 documented as of this encounter
--- OUTSIDE RECORDS SUMMARY | 2024-07-23 02:09 | XMS_ITS | Encounter Summary ---
Author Organization [facility] Address [facility] [place] [address] Care Team Providers Care Avionics Engineer Name Role Phone Raoul Michelle YADIRA Primary Care Provider [phone] Encounter Details Date Type Department Care Team (Latest Contact Info) Description 06/24/2012 10:43 AM EST - 06/24/2012 11:59 PM EST Hospital Encounter [place] [address] CLINIC, DR JAN Solano, Carly Dia MD [facility] [place] [address] Discharge Disposition: Home Social History Tobacco Use [...] 11:00 AM EDT Office Visit [place] [address] Josephine Espinosa MD [facility] [place] [address] documented as of this encounter Procedures Procedure Name Priority Date/Time Associated Diagnosis Comments US TRANSVAGINAL NON OB Routine 06/24/2012 11:28 AM EST documented in this encounter Results * US Transvaginal non OB (06/24/2012 11:28 AM EST) Anatomical Region Laterality Modality Ultrasound 06/24/2012 11:2 8 AM EST Narrative 06/24/2012 12:17 PM EST ?Gynecological Report ? (Signed Final 06/24/2012 12:17 pm) Patient Info ID: ? [id number] ? : ??[birth year] (51 yrs) Name: ? TY TAYLOR ?Visit Date: 06/24/2012 11:16 am Performed By Performed By: ?Linda Ramirez [facility] Associate: ? Ervin LLANOS, Arya Adams Attending: ? Vane LLANOS, Linda Hooper Referred By: ? CARLY SOLANO MD Service(s) Provided UTV - Ultrasound - Transvaginal - [id number] ? [id number] Indications Positive BRC-1 Ovarian cancer surveillance ------- [...] to participate in the care of TY TAYLOR. Please do not hesitate to call if you have any questions. ? Linda Cifuentes MD Electronically Signed Final Report ?? 06/24/2012 12:17 pm Film and interpretation reviewed by the attending Procedure Note Linda Cifuentes MD - 06/24/2012 Gynecological Report (Signed Final 06/24/2012 12:17 pm) Patient Info ID: [id number] : [birth year] (51 yrs) Name: TY TAYLOR Visit Date: 06/24/2012 11:16 am Performed By Performed By: Linda Ramirez [facility] Associate: Arya Mueller MD Attending: Linda Cifuentes MD Referred By: CARLY SOLANO MD Service(s) Provided UTV - Ultrasound - Transvaginal - [id number] Indications Positive BRC-1 Ovarian cancer surveillance ------- [...] to participate in the care of TY TAYLOR. Please do not hesitate to call if you have any questions. Linda Cifuentes MD Electronically Signed Final Report 06/24/2012 12:17 pm Film and interpretation reviewed by the attending Carly Solano MD IMG US PELVIC ORDERA BLES documented in this encounter Visit Diagnoses Not on filedocumented in this encounter Care Teams Avionics Engineer Relationship Specialty Start Date End Date Michelle Silveira PA PCP - General 05/09/10 08/04/15 documented as of this encounter
--- OUTSIDE RECORDS SUMMARY | 2024-07-23 02:09 | XMS_ITS | Encounter Summary ---
Author Organization [facility] [place] [address] Care Team Providers Care Environmental Compliance Technician Name Role Phone Michelle Silveira YADIRA Primary Care Provider [phone] Encounter Details Date Type Department Care Team (Late st Contact Info) Description 04/21/2013 4:08 PM EST Anesthesia Event [place] [address] Gary Shrestha MD [facility] [place] [address] Jeevan Adan MD [facility] [place] [address] Anesthesia Record Procedure Summary Procedure Name Responsible [...] 04/21/13; 1312; 04/21/13; 204004/21/13 1312 by Viky cAuna RN 04/21/132040 by Pebbles Brady RN (RETIRED) Peripheral IV Line - [...] Depression ??? Chest pain A. Stress test [facility] 06/28: exercised to 10.1 METs and [...] 11:00 AM EDT Office [place] [address] Josephine Espinosa MD [facility] [place] [address] documented as of this encounter Visit Diagnoses [...] mg documented in this encounter Care Teams Environmental Compliance Technician Relationship Specialty Start Date End Date Michelle Silveira PA PCP - General 05/09/10 08/04/15 documented as of this encounter
--- OUTSIDE RECORDS SUMMARY | 2024-07-23 02:09 | XMS_ITS | Encounter Summary ---
Author Organization [facility] [place] [address] Care Team Providers Care Watch And Clock Repairer Name Role Phone Michelle Silveira Primary Care Provider [phone] Encounter Details Date Type Department Care Team (Late st Contact Info) Description 06/24/2012 1:10 PM EST Clinical Support [facility] [place] [place] [address] Social History Tobacco Use Types Packs/Day Years [...] 11:00 AM EDT Office Visit [place] [address] Josephine Espinosa MD [facility] [place] [address] documented as of this encounter Visit Diagnoses Not on filedocumented in this encounter Care Teams Watch And Clock Repairer Relationship Specialty Start Date End Date Michelle Silveira PA PCP - General 05/09/10 08/04/15 documented as of this encounter
--- OUTSIDE RECORDS SUMMARY | 2024-07-23 02:09 | XMS_ITS | Encounter Summary ---
Author Organization [facility] Address [facility] [place] [address] Care Team Providers Care Res Counselor Name Role Phone Raoul Michelle YADIRA Primary Care Provider [phone] Reason for Visit * Reason Comments Injections Encounter Details Date Type Department Care Team ([facility] st Contact Info) Description 12/16/2012 3:15 PM EDT Office Visit Allergy at [facility] [place] [address] ALLERGY, INJECTION Allergy to mites (Primary Dx); [...] Rxn: none Extract: Mix B (Arnol Grass,Cat,Tree Mix,[place] Mix,Dog) Dilution: Silver (0.2bau/ml,0.1bau/ml,1:2,000,000w/v,1:2,000,000w/v,1,1,000,0000w/v) Dose: 0.05 cc [...] 11:00 AM EDT Office Visit [place] [address] Josephine Espinosa MD [facility] [place] [address] documented as of this encounter Visit Diagnoses Diagnosis Allergy to mites- Primary Allergy, unspecified not elsewhere classified Allergic rhinitis, cause unspecified Allergic rhinitis due to pollen Allergy to cats Allergic rhinitis due to other allergen Allergy to dog dander Allergic rhinitis due to animal (cat) (dog) hair and dander documented in this encounter Care Teams Res Counselor Relationship Specialty Start Date End Date Michelle Silveira PA PCP - General 05/09/10 08/04/15 documented as of this encounter
--- OUTSIDE RECORDS SUMMARY | 2024-07-23 02:10 | XMS_ITS | Encounter Summary ---
Author Organization [facility] [place] [address] Care Team Providers Care Airborne Mission Systems Superintendent Name Role Phone Michelle Silveira Primary Care Provider [phone] Encounter Details Date Type Department Care Team (Latest Contact Info) Description 05/24/2010 6:37 AM EST - 05/24/2010 11:59 PM EST Hospital Encounter [place] [address] [place] Guerrero MD Discharge Disposition: Home Social History Tobacco Use [...] 11:00 AM EDT Office [place] [address] [facility] [place] [place] [address] documented as of this encounter Visit Diagnoses Not on filedocumented in this encounter Care Teams Airborne Mission Systems Superintendent Relationship Specialty Start Date End Date Michelle Silveira PA PCP - General 05/09/10 08/04/15 documented as of this encounter
--- OUTSIDE RECORDS SUMMARY | 2024-07-23 02:10 | XMS_ITS | Encounter Summary ---
Author Organization [facility] Address [facility] [place] [address] Care Team Providers Care Hand Folder Name Role Phone Raoul Michelle YADIRA Primary Care Provider [phone] Encounter Details Date Type Department Care Team (Latest Contact Info) Description 08/15/2011 6:58 AM EST - 08/15/2011 2:50 PM EST Hospital Encounter [place] [address] Juan Ramon Barnes MD [facility] [place] [address] Jeevan Orourke MD [facility] [place] [address] CHF (congestive heart failure); Chest pain; Cardiomyopathy [...] by your doctor, do not take any xjom-mcg-puxcncc medicines or herbal preparations without first discussing this with your doctor or pharmacist. There is the possibility of side effect and interactions when these are combined. Follow up Care Who to Call with Questions or Problems If there are any questions or problems that you think might be related to your cardiac cath or angioplasty, contact the deck scaler personal lines sales rep by calling [facility] at . documented in this encounter [...] Pre-Procedural H&P Patient Name: Rebeca Hernández : [id number] y.o. MR#: [id number] Chief Complaint: PASCAL Planned Procedure: RHC and LHC History of Present Illness: HPI 49 yo with PMH breast ca s/p left partial mastectomy and chemo with Doxorubicin, Cytoxan~ 7 years ago, obesity, IGT who presents with PASCAL, palpitations with presyncope, occ exertional chest tightness and depressed EF on echo. Had negative ETT 06/28 at [facility]. OSH echo with EF 45% and mild [...] - 08/15/2011 10:39 AM ESTProcedure(s): CARDIAC CATHETERIZATION [facility] Final [facility] [place], [place] Patient Name: Rebeca Hernández ID#: [id number] : 1960 Procedure Date: August 15, 2011 [...] 11:00 AM EDT Office Visit [place] [address] Josephine Epsinosa MD [facility] [place] [address] documented as of this encounter Procedures Procedure [...] (Bezet) 448 ms MUSE SYSTEM Calculated P [place] 65 degrees MUSE SYSTEM Calculated R [place] 63 degrees MUSE SYSTEM Calculated T [place] 51 degrees MUSE SYSTEM INTERPRETATION Normal sinus rhythm Normal ECG When compared with ECG of 26-OCT-2008 02:11, No significant change was found Confirmed by fellow MD Adolfo, Jeremiah ([id number]) on 08/15/2011 10:17:16 AM Confirmed by MD [...] MD HEMATOLOGY ORDERAB LES Performing Organization Address [facility] de Phone Number CERBLANCA ASENCIOIUM * Hepatic Function Panel (08/15/2011 7:30 AM [...] MD CHEMISTRY ORDERABL ES Performing Organization Address [facility] Co de Phone Number KANDY ASENCIOIUM * Prothrombin Time (08/15/2011 7:30 AM EST) Prothrombin Time 12.0 11.9 - 14.7 sec CERNER MILLENNIUM Comment: [facility] Transfusion Committee Guidelines: INR less than [...] Lab Jeevan Orourke MD HEMATOLOGY ORDERAB LES CERBLANCA ASENCIOIUM * Basic Metabolic Panel (non-fasting) (08/15/2011 7:30 [...] MD CHEMISTRY ORDERABL ES Performing Organization Address [facility] de Phone Number CERNER MILLENNIUM * TSH (08/15/2011 7:30 AM EST) Thyroid Stimulating Hormone 0.79 0.27 - 4.20 mcIU/mL CERNER MILLENNIUM Blood specimen (specimen) 08/15/2011 7:30 AM EST 08/15/2011 7:50 AM EST Narrative Resulting Agency Comment Spec In Lab Jeevan Orourke MD CHEMISTRY ORDERABL ES Performing Organization Address [facility] de Phone Number CERNER MILLENNIUM * [...] 1045 (New Bag - Prov ider: Julita Dietirch RN) PRN Medication Order 08/13/2011 08/14/2011 08/15/2011 [...] RN) documented in this encounter Care Teams Hand Folder Relationship Specialty Start Date End Date Michelle Silveira PA PCP - General 05/09/10 08/04/15 documented as of this encounter
--- OUTSIDE RECORDS SUMMARY | 2024-07-23 02:10 | XMS_ITS | Encounter Summary ---
Author Organization [facility] Address [facility] [place] [address] Care Team Providers Care Handbook Writer Name Role Phone Raoul Michelle YADIRA Primary Care Provider [phone] Encounter Details Date Type Department Care Team (Late st Contact Info) Description 08/12/2011 Orders Only Cardiology at [address] [place] [address] Sydney Nix, COMPRESSOR BATTERY PELLETS [facility] [place] [address] Cardiomyopathy (Primary Dx); Breast cancer; Chest pain; [...] Depression ??? Chest pain A. Stress test [facility] 06/28: exercised to 10.1 METs and [...] 11:00 AM EDT Office [place] [address] Josephine Espinosa MD [facility] [place] [address] documented as of this encounter Procedures Procedure [...] means documented in this encounter Care Teams Handbook Writer Relationship Specialty Start Date End Date Michelle Silveira PA PCP - General 05/09/10 08/04/15 documented as of this encounter
--- OUTSIDE RECORDS SUMMARY | 2024-07-23 02:10 | XMS_ITS | Encounter Summary ---
Author Organization [facility] [place] [address] Care Team Providers Care Assembly Machine Operator Name Role Phone Raoul Michelle YADIRA Primary Care Provider [phone] Encounter Details Date Type Department Care Team (Latest Contact Info) Description 05/18/2011 12:07 PM EST - 05/18/2011 11:59 PM EST Hospital Encounter MRI at [facility] [place] [address] CLINIC, DR JAN Guerrero, [place] Farooq MD Breast cancer Discharge Disposition: Home Social History [...] of this encounter Progress Notes * Deana Morgan, RN - 05/15/2011 12:43 PM EST VIR MRI PRE-SEDATION ASSESSMENT NOTE NAME: Rebeca A Edgar AGE: 50 y.o. : 1960 (home) [phone] (work) Female PCP YADIRA HERR None Allergies Allergen Reactions ??? Cis Free Text Allergy hay fever. ??? Penicillins CIS - Rash ??? Codeine Phos CIS - Rash DATE OF CALL: 05/15/11 TIME OF CALL: 1245 PREVIOUS MRI SCAN? Yes at [facility] SCHEDULED SCAN: MRI bilateral breasts SUBJECTIVE: Pt [...] 5 mg PO Yes. Very relaxed per quality assurance/r&d lab technician PT WILL ARRIVE 1 HR. BEFORE SCHEDULED SCAN AND HAVE A QC LAB TECHNICIAN AVAILABLE. PT STATED TO BIOSTATISTICS MANAGER THAT THE SEDATION WAS EFFECTIVE FOR SCAN: Y N documented in this encounter Miscellaneous Notes * Miscellaneous - Provider, Scanning - 05/22/2011 7:49 AM EST documented in this encounter Plan of Treatment Upcoming Encounters Date Type Department Care Team (Late st Contact Info) Description 09/03/2024 11:00 AM EDT Office Visit [place] [address] Josephine Espinosa MD [facility] [place] [address] documented as of this encounter Procedures Procedure [...] mLs documented in this encounter Care Teams Assembly Machine Operator Relationship Specialty Start Date End Date Michelle Silveira PA PCP - General 05/09/10 08/04/15 documented as of this encounter
--- OUTSIDE RECORDS SUMMARY | 2024-07-23 02:10 | XMS_ITS | Encounter Summary ---
Author Organization [facility] Address [facility] [place] [address] Care Team Providers Care Antique Clocks Repairer Name Role Phone Michelle Silveira Primary Care Provider [phone] Reason for Visit * Reason Comments Medication Refill Encounter Details Date Type Department Care Team (Late st Contact Info) Description 07/07/2011 Refill [place] [address] [facility] DR GYNECOLOGY [place] [address] Social History Tobacco Use Types Packs/Day Years [...] AM EDT Office [place] [address] [facility] DR [place] [address] documented as of this encounter Visit Diagnoses Not on filedocumented in this encounter Care Teams Antique Clocks Repairer Relationship Specialty Start Date End Date Michelle Silveira PA PCP - General 05/09/10 08/04/15 documented as of this encounter
--- OUTSIDE RECORDS SUMMARY | 2024-07-23 02:10 | XMS_ITS | Encounter Summary ---
Author Organization [facility] [place] [address] Care Team Providers Care Sheep Herder Name Role Phone Michelle Silveira Primary Care Provider [phone] Encounter Details Date Type Department Care Team (Late st Contact Info) Description 03/05/2011 Orders Only H[place] [address] [place] Guerrero MD Breast cancer (Primary Dx) Social History Tobacco [...] 11:00 AM EDT Office [place] [address] Josephine Espinosa MD [facility] [place] [address] documented as of this encounter Visit Diagnoses Diagnosis Breast cancer- Primary Malignant neoplasm of breast (female), unspecified site documented in this encounter Care Teams Sheep Herder Relationship Specialty Start Date End Date Michelle Silveira PA PCP - General 05/09/10 08/04/15 documented as of this encounter
--- OUTSIDE RECORDS SUMMARY | 2024-07-23 02:10 | XMS_ITS | Encounter Summary ---
Author Organization [facility] [place] [address] Care Team Providers Care Property Insurance Inspector Name Role Phone Michelle Silveira Primary Care Provider [phone] Encounter Details Date Type Department Care Team (Latest Contact Info) Description 05/17/2010 1:23 PM EST - 05/17/2010 11:59 PM EST Hospital [place] [address] [place] Guerrero MD CLINIC, DR MONTOYA Discharge Disposition: Home Social [...] 11:00 AM EDT Office Visit [place] [address] Josephine Espinosa MD [facility] [place] [address] documented as of this encounter Visit Diagnoses Not on filedocumented in this encounter Care Teams Property Insurance Inspector Relationship Specialty Start Date End Date Michelle Silveira PA PCP - General 05/09/10 08/04/15 documented as of this encounter
--- OUTSIDE RECORDS SUMMARY | 2024-07-23 02:10 | XMS_ITS | Encounter Summary ---
Author Organization [facility] Address [facility] [place] [address] Care Team Providers Care Park Activities Coordinator Name Role Phone Raoul Michelle YADIRA Primary Care Provider [phone] Encounter Details Date Type Department Care Team (Late st Contact Info) Description 08/15/2011 8:30 AM EST - 08/15/2011 9:30 AM EST [place] [address] Juan Ramon [place] MD [facility] [place] [address] CARDIAC CATHETERIZATION Social History Tobacco Use Types [...] by your doctor, do not take any qgtg-hlm-jcdswxd medicines or herbal preparations without first discussing this with your doctor or pharmacist. There is the possibility of side effect and interactions when these are combined. Follow up Care Who to Call with Questions or Problems If there are any questions or problems that you think might be related to your cardiac cath or angioplasty, contact the permit review assistant clinical information systems director by calling [facility] at . documented in this encounter Medications [...] Pre-Procedural H&P Patient Name: Rebeca Hernández : [id number] y.o. MR#: [id number] Chief Complaint: PASCAL Planned Procedure: RHC and LHC History of Present Illness: HPI 49 yo with PMH breast ca s/p left partial mastectomy and chemo with Doxorubicin, Cytoxan~ 7 years ago, obesity, IGT who presents with PASCAL, palpitations with presyncope, occ exertional chest tightness and depressed EF on echo. Had negative ETT 06/28 at [facility]. OSH echo with EF [...] - 08/15/2011 10:39 AM ESTProcedure(s): CARDIAC CATHETERIZATION [facility] Final Report [place], [place] Patient Name: Rebeca Hernández ID#: [id number] : 1960 Procedure Date: August 15, 2011 [...] 11:00 AM EDT Office [place] [address] Josephine Espinosa MD [facility] [place] [address] documented as of this encounter Procedures Procedure [...] (Bezet) 448 ms MUSE SYSTEM Calculated P [place] 65 degrees MUSE SYSTEM Calculated R [place] 63 degrees MUSE SYSTEM Calculated T [place] 51 degrees MUSE SYSTEM INTERPRETATION Normal sinus rhythm Normal ECG When compared with ECG of 26-OCT-2008 02:11, No significant change was found Confirmed by fellow MD Adolfo, Jeremiah ([id number]) on 08/15/2011 10:17:16 AM Confirmed by MD [...] MD HEMATOLOGY ORDERAB LES Performing Organization Address [facility] de Phone Number [facility] * Hepatic Function Panel (08/15/2011 7:30 AM [...] MD CHEMISTRY ORDERABL ES Performing Organization Address [facility] Phone Number [facility] * Prothrombin Time (08/15/2011 7:30 AM EST) Prothrombin Time 12.0 11.9 - 14.7 sec CERNER MILLENNIUM Comment: [facility] Transfusion Committee Guidelines: INR less than [...] Jeevan Orourke MD HEMATOLOGY ORDERAB LES KANDY ASENCIOIUM * Basic Metabolic Panel (non-fasting) (08/15/2011 [...] MD CHEMISTRY ORDERABL ES Performing Organization Address [facility] Phone Number CERNER MILLENNIUM * TSH (08/15/2011 7:30 AM EST) Thyroid Stimulating Hormone 0.79 0.27 - 4.20 mcIU/mL CERNER MILLENNIUM Blood specimen (specimen) 08/15/2011 7:30 AM EST 08/15/2011 7:50 AM EST Narrative Resulting Agency Comment Spec In Lab Jeevan Orourke MD CHEMISTRY ORDERABL ES Performing Organization Address [facility] de Phone Number CERNER MILLENNIUM * CBC [...] of variation 13.5 10.9 - 14.4 % CERBLANCA MILLENNIUM Mean Platelet Volume 10.3 9.0 - 12.0 fL KANDY DUENASENNIUM Blood specimen (specimen) 08/15/2011 7:30 AM EST [...] Until Sat08/15/11 at 1658, Intra-Operative (Intra-Procedure), Routine Given 08/15/2011 [...] RN) documented in this encounter Care Teams Park Activities Coordinator Relationship Specialty Start Date End Date Michelle Silveira PA PCP - General 05/09/10 08/04/15 documented as of this encounter
--- OUTSIDE RECORDS SUMMARY | 2024-07-23 02:10 | XMS_ITS | Encounter Summary ---
Author Organization [facility] Address [facility] [place] [address] Care Team Providers Care Occasional Caregiver Name Role Phone Dena Alfonso APRN Primary Care Provider [phone] Encounter Details Date Type Department Care Team (Late st Contact Info) Description 01/25/2005 [place] [phone] Deisy Bangura MD [facility] [place] [address] Social History Tobacco Use Types Packs/Day Years [...] 11:00 AM EDT Office [place] [address] Josephine Espinosa MD [facility] [place] [address] documented as of this encounter Procedures Procedure Name Priority Date/Time Associated Diagnosis Comments SURGICAL PATHOLOGY REPORT Routine 01/25/2005 5:38 PM EDT documented in this encounter Results * Surgical Pathology Report (01/25/2005 5:38 PM EDT) Surgical Pathology Report [id number] ? Location: OPW The signing pathologist has (i) examined the relevant preparation(s) for the specimen(s) and (ii) rendered or confirmed the diagnosis(es). . ?Pathology Surgical Pathology Final Report Clinical Information Specimen Submitted: A - Left breast Clinical History: Hypoechoic breast mass increasing size. ??R/O malignancy vs F/A Report to: Nayely Ireland MD [facility] [address] [place] [address] Gross Description Labeled/Fixative: ? Left breast, formalin. [...] EDT Deisy To MD PATHOLOG Y/CYTOLOGY ORDERABLES KANDY FRANCIS documented in this encounter Visit Diagnoses Not on filedocumented in this encounter Care Teams Occasional Caregiver Relationship Specialty Start Date End Date Dena Alfonso APRN [address] [place] [address] PCP - General Geriatric Medicine 10/12/16 documented as of this encounter
--- OUTSIDE RECORDS SUMMARY | 2024-07-23 02:10 | XMS_ITS | Encounter Summary ---
Author Organization [facility] Address [facility] [place] [address] Care Team Providers Care Educational Technologist Name Role Phone Michelle Silveira Primary Care Provider [phone] Reason for Visit * Reason Comments Breast Cancer Encounter Details Date Type Department Care Team (Late st Contact Info) Description 05/22/2011 11:00 AM EST Follow-Up Hematology Oncology at [address] [phone] El Bernardo MD [facility] [place] [address] Breast cancer (Primary Dx) Discharge Disposition: Home [...] with heterologous chondroid differentiation Tumor Grade: High Sonxxj-Jhqxk-Kspgmocoxy Score: 9 Tubular Differentiation: 3 Mitotic Rate: [...] suspicious enhancement to suggest breast cancer. 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 No pther areas of pain, including [...] AM EDT Office [place] [address] Josephine Espinosa MD [facility] [place] [address] documented as of this encounter Procedures Procedure [...] site documented in this encounter Care Teams Educational Technologist Relationship Specialty Start Date End Date Michelle Silveira PA PCP - General 05/09/10 08/04/15 documented as of this encounter
--- OUTSIDE RECORDS SUMMARY | 2024-07-23 02:10 | XMS_ITS | Encounter Summary ---
Author Organization [facility] Address [facility] [place] [address] Care Team Providers Care Fermentation Operator Name Role Phone Dena Alfonso APRN Primary Care Provider [phone] Encounter Details Date Type Department Care Team (Late st Contact Info) Description 02/08/2005 [place] [address] Jai Duque MD Social History Tobacco Use Types Packs/Day [...] 11:00 AM EDT Office [place] [address] oJsephine Espinosa MD [facility] [place] [address] documented as of this encounter Procedures Procedure Name Priority Date/Time Associated Diagnosis Comments SURGICAL PATHOLOGY REPORT Routine 02/08/2005 12:37 PM EDT documented in this encounter Results * Surgical Pathology Report (02/08/2005 12:37 PM EDT) Surgical Pathology Report [id number] ? Location: 4L The signing pathologist has [...] EDT Jai Duque MD PATHOLOGY/CYTOLOGY O BARTOLOERAALFONSO KANDY FRANCIS documented in this encounter Visit Diagnoses Not on filedocumented in this encounter Care Teams Fermentation Operator Relationship Specialty Start Date End Date Dena Alfonso APRN [address] [place] [address] PCP - General Geriatric Medicine 10/12/16 documented as of this encounter
--- OUTSIDE RECORDS SUMMARY | 2024-07-23 02:10 | XMS_ITS | Encounter Summary ---
Author Organization [facility] [place] [address] Care Team Providers Care Rotary Cutter Feeder Name Role Phone Michelle Silveira Primary Care Provider [phone] Encounter Details Date Type Department Care Team (Late st Contact Info) Description 05/17/2010 11:30 AM EST Follow-Up [place] [address] Social History Tobacco Use Types Packs/Day Years [...] 11:00 AM EDT Office [place] [address] Josephine Espinosa MD [facility] [place] [address] documented as of this encounter Visit Diagnoses Not on filedocumented in this encounter Care Teams Rotary Cutter Feeder Relationship Specialty Start Date End Date Michelle Silveira PA PCP - General 05/09/10 08/04/15 documented as of this encounter
--- OUTSIDE RECORDS SUMMARY | 2024-07-23 02:10 | XMS_ITS | Encounter Summary ---
Author Organization [facility] [place] [address] Care Team Providers Care Crew Boat Operator Name Role Phone Michelle Silveira YADIRA Primary Care Provider [phone] Encounter Details Date Type Department Care Team (Late st Contact Info) Description 03/12/2011 Orders Only Hematology [place] [phone] Mode Guerrero MD Breast cancer (Primary Dx) [...] 11:00 AM EDT Office [place] [phone] Josephine Espinosa MD [facility] [place] [address] documented as of this encounter Results * [...] direct digital capture. The exam was evaluated by[employer] Version 8.3.17. FINDINGS: This is a negative [...] Visualization adequate - bilateral. Mode Guerrero MD [facility] ORDERABLES documented in this encounter Visit Diagnoses Diagnosis Breast cancer- Primary Malignant neoplasm of breast (female), unspecified site Breast cancer Malignant neoplasm of breast (female), unspecified site Breast cancer Malignant neoplasm of breast (female), unspecified site documented in this encounter Care Teams Crew Boat Operator Relationship Specialty Start Date End Date Michelle Silveira PA PCP - General 05/09/10 08/04/15 documented as of this encounter
--- OUTSIDE RECORDS SUMMARY | 2024-07-23 02:10 | XMS_ITS | Encounter Summary ---
Author Organization [facility] Address [facility] [place] [address] Care Team Providers Care Customer Manager Name Role Phone Raoul Michelle YADIRA Primary Care Provider [phone] Reason for Visit * Reason Comments Skin Lesion Encounter Details Date Type Department Care Team (Late st Contact Info) Description 10/10/2010 1:15 PM EDT Office Visit Dermatology [address] [place] [address] [address] [place] [address] Miles Bowman MD [address], [place] [address] Xerosis (Primary Dx) Social History Tobacco Use [...] 11:00 AM EDT Office [place] [address] Josephine Espinosa MD [facility] [place] [address] documented as of this encounter Visit Diagnoses Diagnosis Xerosis- Primary Other specified disease of sebaceous glands documented in this encounter Care Teams Customer Manager Relationship Specialty Start Date End Date Michelle Silveira PA PCP - General 05/09/10 08/04/15 documented as of this encounter
--- OUTSIDE RECORDS SUMMARY | 2024-07-23 02:10 | XMS_ITS | Encounter Summary ---
Author Organization [facility] [place] [address] Care Team Providers Care Email Developer Name Role Phone Michelle Silveira Primary Care Provider [phone] Encounter Details Date Type Department Care Team (Late st Contact Info) Description 05/17/2010 1:00 PM EST Follow-Up Hematology [place] [address] Mode Guerrero MD Discharge Disposition: Home Social [...] 11:00 AM EDT Office [place] [address] Josephine Espinosa MD [facility] [place] [address] documented as of this encounter Visit Diagnoses Not on filedocumented in this encounter Care Teams Email Developer Relationship Specialty Start Date End Date Michelle Silveira PA PCP - General 05/09/10 08/04/15 documented as of this encounter
--- OUTSIDE RECORDS SUMMARY | 2024-07-23 02:10 | XMS_ITS | Encounter Summary ---
Author Organization [facility] Address [facility] [place] [address] Care Team Providers Care Scaffold Builder Name Role Phone RaoulMichelle YADIRA Primary Care Provider [phone] Reason for Visit * Reason Comments Shortness of Breath sob with exercise,di zziness,tachycardia and pain in shoulder & jaw Fatigue Encounter Details Date Type Department Care Team (Late st Contact Info) Description 08/08/2011 10:20 AM EST Office Visit Cardiology at [address] [address] Jeevan Orourke MD [facility] [place] [address] CHF (congestive heart failure) (Primary Dx); Palpitations [...] of Visit: August 08, 2011 PCP: YADIRA Zavala Reason for Visit: Office consultation; referred by Michelle Silveira at [facility]. Dear Michelle: Rebeca Taylor is a pleasant, 50-year-old female who comes in today with the chief complaint of dyspnea on exertion, palpitations with some presyncope, drop in ejection fraction with shortness of breath, and chest pain. Her history includes the followin. Social History: She lives in [place], [place]. 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 Her is a slab inspector for [employer]. She has one daughter who is graduating from [employer] [facility] [employer] in the near future.She does not [...] 11:00 AM EDT Office Visit [place] [address] Josephine Espinosa MD [facility] [place] [place] [address] documented as of this encounter Results * [...] MD CHEMISTRY ORDERABL ES Performing Organization Address [facility] Phone Number CERBLANCA DUENASENNIUM * Prothrombin Time (08/15/2011 7:30 AM EST) Prothrombin Time 12.0 11.9 - 14.7 sec CERNER MILLENNIUM Comment: [facility] Transfusion Committee Guidelines: INR less [...] MD HEMATOLOGY ORDERAB LES Performing Organization Address [facility] Phone Number CERBLANCA ASENCIOIUM * Basic Metabolic Panel (non-fasting) [...] Lab Jeevan Orourke MD CHEMISTRY ORDERABL ES KANDY FRANCIS * TSH (08/15/2011 7:30 AM EST) Thyroid Stimulating Hormone 0.79 0.27 - 4.20 mcIU/mL CERNER MILLENNIUM Blood specimen (specimen) 08/15/2011 7:30 AM EST 08/15/2011 7:50 AM EST Narrative Resulting Agency Comment Spec In Lab Jeevan Orourke MD CHEMISTRY ORDERABL ES CERBLANCA MILLENNIUM * CBC (with Diff) (08/15/2011 7:30 [...] Jeevan Orourke MD HEMATOLOGY ORDERAB LES CERBLANCA MILLENNIUM * Cardiac Event Monitor (08/08/2011 11:44 AM EST) Anatomical Region Laterality Modality Other Narrative 10/03/2011 3:57 PM EDT [facility] ?EVENT MONITOR REPORT Indication for Event Monitor: ??Palpitations Quality of recordings submitted: [ ??] Acceptable [ ??] Moderate artifact [ x ] Considerable artifact Rhythm interpretation: 3 ??tracing(s) were submitted for interpretation, including the baseline tracing. Baseline, asymptomatic, and fast heart beat all were reported during sinus rhythm from 78-103 bpm. Conclusion(s): ?? No dysrhythmias. Procedure Note Felicia Dixon MD - 10/03/2011 [facility] EVENT MONITOR REPORT Indication for Event Monitor: [...] Palpitations documented in this encounter Care Teams Scaffold Builder Relationship Specialty Start Date End Date Michelle Silveira PA PCP - General 05/09/10 08/04/15 documented as of this encounter
--- OUTSIDE RECORDS SUMMARY | 2024-07-23 02:10 | XMS_ITS | Encounter Summary ---
Author Organization Counts Include [facility] Address [facility] [place] [address] Care Team Providers Care Heavy Equipment Operator/Paver Name Role Phone Michelle Silveira Primary Care Provider [phone] Encounter Details Date Type Department Care Team (Late st Contact Info) Description 08/07/2011 Abstract Cardiology at [address] [address] Pat Cruz, BUSTER Social History Tobacco Use Types Packs/Day Years [...] 11:00 AM EDT Office [place] [address] Josephine Espinosa MD [facility] [place] [address] documented as of this encounter Visit Diagnoses Not on filedocumented in this encounter Care Teams Heavy Equipment Operator/Paver Relationship Specialty Start Date End Date Michelle Silveira PA PCP - General 05/09/10 08/04/15 documented as of this encounter
--- OUTSIDE RECORDS SUMMARY | 2024-07-23 02:10 | XMS_ITS | Encounter Summary ---
Author Organization [facility] Address [facility] [place] [address] Care Team Providers Care Eight Arm Operator Name Role Phone Dena Alfonso APRN Primary Care Provider [phone] Encounter Details Date Type Department Care Team (Late st Contact Info) Description 03/25/2008 Orders Only Dermatology at [place] [address] [facility] [place] [address] Miles Bowman MD [address] [facility] [place] [address] Social History Tobacco Use Types Packs/Day Years [...] 11:00 AM EDT Office Visit Gastroenterology at [facility] [place] [address] Josephine Espinosa MD [facility] [place] [address] documented as of this encounter Procedures Procedure Name Priority Date/Time Associated Diagnosis Comments SURGICAL PATHOLOGY REPORT Routine 03/25/2008 5:15 PM EDT documented in this encounter Results * Surgical Pathology Report (03/25/2008 5:15 PM EDT) Surgical Pathology Report [id number] ? Location: [facility] The signing pathologist has (i) examined the relevant preparation(s) for the specimen(s) and (ii) rendered or confirmed the diagnosis(es). . ?Pathology Surgical Pathology Final Report Clinical Information Specimen Submitted: A - (R) lower lip (below yogesh border, 4-mm Punch: Clinical History: Mole Clinical Diagnosis: Nevus, doubt BCCA Report to: Miles Bowman MD, III [facility] Dermatology [place], [place] ??[address] Gross Description Labeled/Fixativ e: ? Labeled with [...] in rendering the final pathologic diagnosis. KANDY FRANCIS 03/25/2008 5:15 PM EDT Miles Bowman MD PATHOLOGY/CYTOLOGY Vanessa MACKEY AKNDY FRANCIS documented in this encounter Visit Diagnoses Not on filedocumented in this encounter Care Teams Eight Arm Operator Relationship Specialty Start Date End Date Dena Alfonso APRN [address] [place] [address] PCP - General Geriatric Medicine 10/12/16 documented as of this encounter
--- OUTSIDE RECORDS SUMMARY | 2024-07-23 02:10 | XMS_ITS | Encounter Summary ---
Author Organization [facility] [place] [address] Care Team Providers Care Stuffing Machine Operator Name Role Phone Michelle Silveira Primary Care Provider [phone] Reason for Visit * Reason Onset Date Comments Other 07/05/2011 Encounter Details Date Type Department Care Team (Late st Contact Info) Description 07/05/2011 Telephone Hematology Oncology at [address] [phone] Francesca Lei, RN Other Social History Tobacco [...] 11:00 AM EDT Office [place] [address] Josephine Espinosa MD [facility] [place] [address] documented as of this encounter Visit Diagnoses Not on filedocumented in this encounter Care Teams Stuffing Machine Operator Relationship Specialty Start Date End Date Michelle Silveira PA PCP - General 05/09/10 08/04/15 documented as of this encounter
--- OUTSIDE RECORDS SUMMARY | 2024-07-23 02:10 | XMS_ITS | Encounter Summary ---
Author Organization [facility] Address [facility] [place] [address] Care Team Providers Care Commission Sales Associate Name Role Phone Michelle Silveira Primary Care Provider [phone] Encounter Details Date Type Department Care Team (Late st Contact Info) Description 08/08/2011 11:00 AM EST - 08/08/2011 11:59 PM EST Hospital Encounter Non-Invasive [place] [phone] Palpitations Social History Tobacco Use Types Packs/Day [...] 11:00 AM EDT Office [place] [address] Josephine Espinosa MD [facility] [place] [address] documented as of this encounter Procedures Procedure Name Priority Date/Time Associated Diagnosis Comments CARDIAC EVENT MONITOR Routine 08/08/2011 11:44 AM EST Palpitations documented in this encounter Results * Cardiac Event Monitor (08/08/2011 11:44 AM EST) Anatomical Region Laterality Modality Other Narrative 10/03/2011 3:57 PM EDT [facility] ?EVENT MONITOR REPORT Indication for Event Monitor: ??Palpitations Quality of recordings submitted: [ ??] Acceptable [ ??] Moderate artifact [ x ] Considerable artifact Rhythm interpretation: 3 ??tracing(s) were submitted for interpretation, including the baseline tracing. Baseline, asymptomatic, and fast heart beat all were reported during sinus rhythm from 78-103 bpm. Conclusion(s): ?? No dysrhythmias. Procedure Note Felicia Dixon MD - 10/03/2011 [facility] EVENT MONITOR REPORT Indication for Event [...] Palpitations documented in this encounter Care Teams Commission Sales Associate Relationship Specialty Start Date End Date Michelle Silveira PA PCP - General 05/09/10 08/04/15 documented as of this encounter
--- OUTSIDE RECORDS SUMMARY | 2024-07-23 02:10 | XMS_ITS | Encounter Summary ---
Author Organization [facility] Address [facility] [place] [address] Care Team Providers Care Extrusion Utility Worker Name Role Phone Michelle Silveira Primary Care Provider [phone] Encounter Details Date Type Department Care Team (Late st Contact Info) Description 05/18/2011 2:40 PM EST - 05/18/2011 11:59 PM EST Hospital Encounter [place] [phone] Breast cancer Social History Tobacco Use Types [...] 11:00 AM EDT Office Visit [place] [phone] Josephine Espinosa MD [facility] [place] [address] documented as of this encounter Procedures Procedure [...] site documented in this encounter Care Teams Extrusion Utility Worker Relationship Specialty Start Date End Date Michelle Silveira PA PCP - General 05/09/10 08/04/15 documented as of this encounter
--- OUTSIDE RECORDS SUMMARY | 2024-07-23 02:10 | XMS_ITS | Encounter Summary ---
Author Organization [facility] Address [facility] [place] [address] Care Team Providers Care Chemotherapist Name Role Phone Dena Alfonso APRN Primary Care Provider [phone] Encounter Details Date Type Department Care Team (Late st Contact Info) Description 02/26/2005 Orders [place] [address] Tahir Griffiths MD [facility] [place] [address] Social History Tobacco Use Types Packs/Day Years [...] 11:00 AM EDT Office [place] [address] Josephine Espinosa MD [facility] [place] [address] documented as of this encounter Procedures Procedure Name Priority Date/Time Associated Diagnosis Comments SURGICAL PATHOLOGY REPORT Routine 02/26/2005 11:29 AM EDT documented in this encounter Results * Surgical Pathology Report (02/26/2005 11:29 AM EDT) Surgical Pathology Report [id number] ? Location: The signing pathologist has (i) [...] FISH. ??Direct analysis was performed using the Flat.toysion Kit. ??Slide adequacy and signal enumeration were [...] breast Ca. Gross Description A - Labeled/Fixative: [place] nodes, left axilla; saline. Qty/Size/Weight: ?Multiple, 3.2 [...] is received detached ?from the specimen. Sections/Processing: ??Instrument Specialist of slice I, medial margin en face; (2) ?traffic representative of slice II; (3) traffic representative of slice III; (4) traffic representative of slice IV; (5-6) traffic representative of slice V; (7) slice tissue adjacent to mass; (8-9) traffic representative of slice ; (10) slice VII, [...] caudal tissue with focal hemorrhagic area; (32) traffic representative of slice XI, lateral margin en [...] differentiation Tumor Grade: ?High (High, Intermediate, Low) Wlqzlr-Znfoq-Cwyqjgozu n Score: ??9 ?? Tubular Differentiation: ? [...] Nipple Involvement: ? N/A Correlation Biopsies/Cytology ?? [id number], [id number] (needle biopsies- mass ?and MRI enhancing lesion) [...] immunoreactivity: ? Negative (see Diagnostic mohr) ?? NV immunoreactivity: ? Negative (see Diagnostic mohr) HER2/yeyo [...] associated with a biopsy site (corrosponding to [id number]) in slices VII and VIII. ??Caudal to this there is an area of fullness characterized by dense stromal sclerosis. ??(B14-17). ??In tissue slices IX and X there is a second needle biopsy site ([id number]). ??There are also two benign intraparenchymal lymph nodes adjacent to hemorrhage and neutrophils consistent with the needle localization wire. KANDY FRANCIS 02/26/2005 11:2 9 AM EDT Tahir Griffiths MD PATHOLOGY/CYTOLOGY O BARTOLOERAALFONSO Performing Organization Address City/State/[facility] Co de Phone Number [facility] documented in this encounter Visit Diagnoses Not on filedocumented in this encounter Care Teams Chemotherapist Relationship Specialty Start Date End Date Dena Alfonso APRN [address] [place] [address] PCP - General Geriatric Medicine 10/12/16 documented as of this encounter
[2024-07-23 08:53] LABS: Anion Gap 7.4 mmol/L (3-11); BUN 13 mg/dL (7-18); CO2 29.6 mmol/L (21.0-32.0); Calcium 9.4 mg/dL (8.5-10.1); Calculated LDL 136 mg/dL (<100); Chloride 102 mmol/L (98-107); Cholesterol 234 mg/dL (<200); Folate 9.1 ng/mL (8.6-20.0); Glucose 158 mg/dL (74-106); HDL Cholesterol 78 mg/dL (40-60); Potassium 3.8 mmol/L (3.5-5.1); Sodium 139 mmol/L (136-145); Triglyceride 104 mg/dL (<150)
[2024-07-23 09:05] LABS: COMMENT (LAB VIEW ONLY) 89.84 mg/dL; Microalb ug/mg Crea 3.6 ug/mg Cr
== END 2024-07-23 01:55 | disposition home or self-care (01) ==
LOC: LBO 01:54
PROVIDERS: PCP Nurse Practitioner Adult Health; Visit Provider Nurse Practitioner Adult Health
DX: E11.9 Type 2 diabetes mellitus without complications (principal); E53.8 Deficiency of other specified B group vitamins
CPT/HCPCS: 36415; 80048; 80061; 82043; 82570; 82746; 84443

== ENCOUNTER 2025-02-24 10:54 | Outpatient (REF) | payer MEDICARE, MEDICAID, SELFPAY ==
[2025-02-24 11:33] LABS: Glucose Negative (Negative)
== END 2025-02-24 10:55 | disposition home or self-care (01) ==
LOC: LBN 10:54
PROVIDERS: PCP Nurse Practitioner Adult Health; Visit Provider Obstetrics & Gynecology
DX: R35.0 Frequency of micturition (principal)
CPT/HCPCS: 81003

== ENCOUNTER 2025-03-16 10:18 | Emergency (ER) | payer MEDICARE, MEDICAID, SELFPAY ==
[2025-03-16] VITALS (28 sets, daily range): BP systolic 106–159; BP diastolic 47–114; PULSE 51–79; RESP 11–22; TEMP 36.6; O2SAT 95–100
[2025-03-16 10:52] LABS: Abs Immature Grans 0.01 10^3/uL (0.0-0.06); HCT 36.8 % (36.0-46.0); HGB 12.4 g/dL (11.2-15.7); Immature Grans % 0.2 %; MCH 29.7 pg (27.0-33.0); MCHC 33.7 % (32.0-36.0); MCV 88 fL (80-95); MPV 10.0 fL (8.0-11.0); Platelet Count 263 10^3/uL (130-400); RBC 4.18 10^6/uL (3.93-5.22); RDW 13.8 % (11.7-14.6); RDW-SD 44.5 fL; WBC 4.20 10^3/uL (4.4-10.8)
--- NOTE | 2025-03-16 11:15 | RT.EKG_ITS ---
APPROVED REPORT Exam: Resting ECG Reason for Exam: weakness Patient Location: E HR:60 bpm ECG Measurements Heart Rate 60 AXIS UT 159 P 63 QRSd 87 QRS 45 QT 434 T 45 QTc 432 Conclusion Sinus rhythm...normal P axis, V-rate 60- 99 No Occlusion OK
[2025-03-16 11:18] LABS: ALT 20 U/L (14-59); AST 18 U/L (15-37); Albumin 3.7 g/dL (3.4-5.0); Alkaline Phosphatase 63 U/L (46-116); Anion Gap 8.7 mmol/L (3-11); BUN 16 mg/dL (7-18); Bilirubin, Total 0.6 mg/dL (0.2-1.0); CO2 26.3 mmol/L (21.0-32.0); Calcium 8.6 mg/dL (8.5-10.1); Chloride 104 mmol/L (98-107); Estimated GFR 97.12 (mL/min/1.73m2); Glucose 106 mg/dL (74-106); Hemoglobin A1C 6.8 % (<5.7); Magnesium 2.2 mg/dL (1.8-2.4); Potassium 4.1 mmol/L (3.5-5.1); Sodium 139 mmol/L (136-145); TSH (W/Ref FT4) 0.73 uIU/mL (0.36-3.74); Total Protein 7.0 g/dL (6.4-8.2); Troponin I 6 ng/L (<or=51)
[2025-03-16 11:19] LABS: Glucose Negative (Negative)
[2025-03-16] MEDS: ACETAMINOPHEN 500 MG/50 ML BAG 200 MG IVPB (12:08)
--- NOTE | 2025-03-16 12:15 | DI.CT_ITS ---
Exam(s) CT HEAD WO EXAM: CT HEAD WO CLINICAL HISTORY: headache, lightheaded. TECHNIQUE: Imaging Protocol: Axial computed tomography images with coronal and sagittal reformatted images were created and reviewed COMPARISON: No exams were available for comparison FINDINGS: There are no skull fractures. There is no fluid in the visualized paranasal sinuses. There is no evidence of intracranial hemorrhage, mass effect, or shift of midline structures. There are no extra-axial fluid collections. There is asymmetry in the size of the lateral ventricles, left larger than right and this appears to be on a developmental basis. There also appears to be subtle septum cavum pellucidum. There is no blood within the ventricular system nor within the basal cisterns. IMPRESSION: No acute intracranial findings on this noninfused CT scan of the brain. Asymmetric size of the lateral ventricles noted which is probably on a developmental basis. Called by myself to ER provider 03/16/2025 at 1:14 p.m. RADIATION DOSE DELIVERED: 907.86mGy.cm Total DLP DATA REPOSITORY: All CT scans at this facility are submitted to the National Radiology Data Registry (NRDR) Dose Index Registry (DIR) with the [employer] (ACR). RADIATION OPTIMIZATION: All CT scans at this facility use at least one of these dose optimization techniques: automated exposure control; mA and/or kV adjustment per patient size (includes targeted exams where dose is matched to clinical indication); or iterative reconstruction.
[2025-03-16 12:23] LABS: COVID-19 PCR Negative (Negative); RSV PCR Negative (Negative)
[2025-03-16 12:53] LABS: Troponin I 5 ng/L (<or=51)
--- NOTE | 2025-03-17 08:51 | W.ED.GENAD ---
Discharge Plan Disposition Patient Disposition: Home Discharge Details Clinical Impression: Malaise, Diabetes Primary Care Provider: Dena Alfonso ED Provider: Tabitha Pike Home Meds and New Rx's Prescriptions: Continued acetaminophen [Tylenol Extra Strength] 500 mg tablet 500 mg PO Q6H PRN Trimo-Chauhan Jelly 0.025-0.01 % gel 1 applic vaginal .Twice weekly Qty: 113.4 3RF fluconazole 150 mg tablet 150 mg PO Q3D Qty: 2 0RF glimepiride 2 mg tablet 2 mg PO QAM Qty: 90 3RF Rx Instructions: administer with breakfast cholecalciferol (vitamin D3) 75 mcg (3,000 unit) tablet 75 mcg PO DAILY (DME) OneTouch Verio test strips Strip See Rx Instructions .ROUTE .COMPLEX Qty: 100 3RF Dose Instruction: TEST BLOOD SUGAR ONCE DAILY Rx Instructions: TEST BLOOD SUGAR ONCE DAILY. DX: E11.9. Keep A1c below 7. valacyclovir 500 mg tablet 500 mg PO BID PRN (Reason: HSV) Qty: 30 1RF Rx Instructions: 1 tab BID for 3 days PRN outbreak. famotidine 10 mg tablet 10 mg PO DAILY PRN clonazepam 0.5 mg tablet 0.25 - 0.5 mg PO QHS PRN (Reason: sleep difficulty) Qty: 30 0RF Rx Instructions: administer 30 minutes before bedtime (DME) lancets Misc See Rx Instructions .MEDSUPPLY Qty: 100 3RF Rx Instructions: E11.9 for daily monitoring for A1C <7%; any brand ok omeprazole 20 mg capsule,delayed release(DR/EC) 20 mg PO .daily in AM Qty: 90 0RF Rx Instructions: Take daily for 2 months on an empty--then wean off by taking every other day x2 weeks, etc. epinephrine [EpiPen 2-Hi] 0.3 mg/0.3 mL auto-injector 0.3 mg IM ONCE Qty: 2 0RF Rx Instructions: administer for bee sting, call 911 cyclobenzaprine 5 mg tablet 5 mg PO BID PRN (Reason: muscle spasm) Qty: 30 3RF betamethasone dipropionate 0.05 % ointment See Rx Instructions .ROUTE .COMPLEX Qty: 15 1RF Dose Instruction: APPLY TOPICALLY TWO TIMES A DAY NEEDED FOR HAND ECZEMA. USE A THIN LAYER MIXED WITH EMOLLIENT FOR HAND ECZEMA. USE FOR SHORTEST DURATION Rx Instructions: APPLY TOPICALLY TWO TIMES A DAY NEEDED FOR HAND ECZEMA. USE A THIN LAYER MIXED WITH EMOLLIENT FOR HAND ECZEMA. USE FOR SHORTEST DURATION (DME) lancets [OneTouch Delica Plus Lancet] 33 gauge [facility] [place] MISCELLANEOUS Patient Comments: USE TO TEST BLOOD SUGAR DAILY Discharge Instructions Additional Instructions: Please follow-up with primary care physician this week continue you on your medications until you discuss side effects with them make sure you are consuming 8,8 oz glasses of water daily Please return earlier should you develop fever, chills, or with any new or worsening complaints however your tests today are reassuring I do wonder if you are having a reaction to the glimepiride Referrals: Dena Alfonso NP [Primary Care Provider, Medicine] Discharge Data Discharge Date/Time-TO BE ENTERED AT DEPARTURE: 03/16/25 14:33 HPI General Date/Time Provider Initiated Documentation: 03/16/25 10:31. HPI Narrative: This 64-year-old female complains of feeling tired and irritable since starting glimepiride 3 weeks ago. She states that her blood sugars have been erratic and it is concerning her. She states she was walking her dog when she felt tired this morning and was hoping it would energize her. She states that she subsequently felt anxious, tired, and easily frustrated and so she called EMS to check her blood sugar. Her blood pressure was quite elevated and the recommendation was to be evaluated in the emergency department which is why she is here today. She denies chest pain shortness of breath she does have a mild headache she denies any fever chills falls or injuries vision change speech change or strength or sensation changes to her extremities. Related Data Home Medications ?Medication ?Instructions ?Recorded ?Confirmed cholecalciferol (vitamin D3) 75 75 mcg PO DAILY 07/20/20 03/16/25 mcg (3,000 unit) tablet acetaminophen 500 mg tablet 500 mg PO Q6H PRN 05/19/24 03/16/25 (Tylenol Extra Strength) blood sugar diagnostic (OneTouch #100 strips 09/17/24 03/16/25 Verio test strips) valacyclovir 500 mg tablet 500 mg PO BID PRN HSV #30 tabs 09/17/24 03/16/25 clonazepam 0.5 mg tablet 0.25 - 0.5 mg (0.5 - 1 x 0.5 mg) 12/21/24 03/16/25 PO QHS PRN sleep difficulty #30 tabs epinephrine 0.3 mg/0.3 mL 0.3 mg (0.3 mL) IM ONCE #2 ea 12/21/24 03/16/25 injection, auto-injector (EpiPen 2-Hi) famotidine 10 mg tablet 10 mg PO DAILY PRN 12/21/24 03/16/25 lancets #100 ea 12/21/24 03/16/25 omeprazole 20 mg capsule,delayed 20 mg PO .daily in AM #90 caps 12/21/24 03/16/25 release cyclobenzaprine 5 mg tablet 5 mg PO BID PRN muscle spasm #30 01/07/25 03/16/25 tabs betamethasone dipropionate 0.05 % See Rx Instructions .Route 02/18/25 03/16/25 topical ointment .COMPLEX #15 grams fluconazole 150 mg tablet 150 mg PO Q3D 2 doses #2 tabs 02/24/25 03/16/25 glimepiride 2 mg tablet 2 mg PO QAM #90 tabs 02/24/25 03/16/25 oxyquinoline 0.025 %-sodium lauryl 1 applic vaginal .Twice weekly 02/24/25 03/16/25 sulfate 0.01 % vaginal gel #113.4 grams (Trimo-Chauhan Jelly) lancets 33 gauge (OneTouch Delica 03/16/25 03/16/25 Plus Lancet) Previous Rx's ?Medication ?Instructions ?Recorded blood sugar diagnostic (OneTouch #100 strips 09/17/24 Verio test strips) valacyclovir 500 mg tablet 500 mg PO BID PRN HSV #30 tabs 09/17/24 clonazepam 0.5 mg tablet 0.25 - 0.5 mg (0.5 - 1 x 0.5 mg) 12/21/24 PO QHS PRN sleep difficulty #30 tabs epinephrine 0.3 mg/0.3 mL 0.3 mg (0.3 mL) IM ONCE #2 ea 12/21/24 injection, auto-injector (EpiPen 2-Hi) lancets #100 ea 12/21/24 omeprazole 20 mg capsule,delayed 20 mg PO .daily in AM #90 caps 12/21/24 release cyclobenzaprine 5 mg tablet 5 mg PO BID PRN muscle spasm #30 01/07/25 tabs betamethasone dipropionate 0.05 % See Rx Instructions .Route 02/18/25 topical ointment .COMPLEX #15 grams fluconazole 150 mg tablet 150 mg PO Q3D 2 doses #2 tabs 02/24/25 glimepiride 2 mg tablet 2 mg PO QAM #90 tabs 02/24/25 oxyquinoline 0.025 %-sodium lauryl 1 applic vaginal .Twice weekly 02/24/25 sulfate 0.01 % vaginal gel #113.4 grams (Trimo-Chauhan Jelly) Allergies Allergy/AdvReac Type Severity Reaction Status Date / Time iodine Allergy Severe hives Verified 03/16/25 10:23 carvedilol Allergy Intermediate Other (See Verified 03/16/25 10:23 Comment) codeine (Codeine) Allergy Intermediate RASH Verified 03/16/25 10:23 Penicillins Allergy Intermediate RASH Verified 03/16/25 10:23 Sulfa (Sulfonamide Allergy Intermediate Rash Verified 03/16/25 10:23 Antibiotics) hydrocodone Allergy Mild ITCHING Verified 03/16/25 10:23 tramadol Allergy Mild Hives Verified 03/16/25 10:23 dulaglutide (From [facility]) AdvReac Mild Nausea Verified 03/16/25 10:23 General Stated Complaint: GenMedical MARIO: 3 Exam Narrative Exam Narrative: Alert and oriented 64-year-old female pleasant oropharynx patent uvula midline pupils equal round reactive light accommodation extraocular milligram extraocular muscles intact negative pronator drift negative [id number] negative heel hastings ambulatory with steady gait lungs clear to auscultation cardiac rate rhythm regular no abdominal tenderness speech is intact Course Vital Signs Vital signs: Vital Signs Temperature 36.6 C 03/16/25 10:16 Pulse 72 03/16/25 10:16 Respiratory Rate 18 03/16/25 10:16 Blood Pressure 151/86 H 03/16/25 10:16 Pulse Oximetry 99 03/16/25 10:16 Temperature 36.6 C 03/16/25 10:30 Temperature Source Tympanic 03/16/25 10:30 Pulse 71 03/16/25 13:45 Pulse 77 03/16/25 14:00 Respiratory Rate 17 03/16/25 14:00 Respiratory Effort Normal 03/16/25 10:51 Blood Pressure 134/78 03/16/25 13:45 Blood Pressure Mean 97 03/16/25 13:45 Pulse Oximetry 97 03/16/25 13:45 Oxygen Delivery Method Room Air 03/16/25 10:30 Oxygen Flow Rate 0 03/16/25 10:30 Pain Level 0 03/16/25 10:30 Lab/Test Results Lab/Test Results: Laboratory Tests Range/Units 03/16/25 03/16/25 03/16/25 10:29 11:05 11:33 WBC (4.4-10.8) 10^3/uL 4.20 L RBC (3.93-5.22) 10^6/uL 4.18 Hgb (11.2-15.7) g/dL 12.4 Hct (36.0-46.0) % 36.8 MCV (80-95) fL 88 MCH (27.0-33.0) pg 29.7 MCHC (32.0-36.0) % 33.7 RDW (11.7-14.6) % 13.8 Plt Count (130-400) 10^3/uL 263 MPV (8.0-11.0) fL 10.0 Immature Gran % % 0.2 Neutrophils % % 58.2 Lymphocytes % % 31.9 Monocytes % % 7.1 Eosinophils % % 1.9 Basophils % % 0.7 Nucleated RBC % (0.0-0.3) % 0.0 Absolute Neutrophils (1.2-6.7) 10^3/uL 2.44 Absolute Lymphocytes (1.2-3.4) 10^3/uL 1.34 Absolute Monocytes (0.1-0.8) 10^3/uL 0.30 Absolute Eosinophils (0.0-0.7) 10^3/uL 0.08 Absolute Basophils (0.0-0.2) 10^3/uL 0.03 Sodium (136-145) mmol/L 139 Potassium (3.5-5.1) mmol/L 4.1 Chloride (98-107) mmol/L 104 Carbon Dioxide (21.0-32.0) mmol/L 26.3 Anion Gap (3-11) mmol/L 8.7 BUN (7-18) mg/dL 16 Creatinine (0.55-1.02) mg/dL 0.7 Est GFR (CKD-EPI 2020) (mL/min/1.73m2) 97.12 Glucose (74-106) mg/dL 106 Hemoglobin A1c (<5.7) % 6.8 H Calcium (8.5-10.1) mg/dL 8.6 Magnesium (1.8-2.4) mg/dL 2.2 Total Bilirubin (0.2-1.0) mg/dL 0.6 AST (15-37) U/L 18 ALT (14-59) U/L 20 Alkaline Phosphatase (46-116) U/L 63 Troponin I (<or=51) ng/L 6 Total Protein (6.4-8.2) g/dL 7.0 Albumin (3.4-5.0) g/dL 3.7 TSH (0.36-3.74) uIU/mL 0.73 Urine Color (Yellow) Yellow Urine Clarity (Clear) Clear Urine pH (5-8) 7.5 Ur Specific [place] (1.005-1.025) 1.015 Urine Protein (Neg-Trace) mg/dL Negative Urine Ketones (Negative) mg/dL Negative Urine Blood (Negative) Negative Urine Nitrite (Negative) Negative Urine Bilirubin (Negative) Negative Urine Urobilinogen (Up to 0.2) mg/dL 0.2 Ur Leukocyte Esterase (Negative) Negative Urine Glucose (Negative) mg/dL Negative COVID-19 Source Nasopharynx SARS-CoV-2 (PCR) (Negative) Negative Influenza Type A (PCR) (Negative) Negative Influenza Type B (PCR) (Negative) Negative RSV (PCR) (Negative) Negative Range/Units 03/16/25 11:40 WBC (4.4-10.8) 10^3/uL RBC (3.93-5.22) 10^6/uL Hgb (11.2-15.7) g/dL Hct (36.0-46.0) % MCV (80-95) fL MCH (27.0-33.0) pg MCHC (32.0-36.0) % RDW (11.7-14.6) % Plt Count (130-400) 10^3/uL MPV (8.0-11.0) fL Immature Gran % % Neutrophils % % Lymphocytes % % Monocytes % % Eosinophils % % Basophils % % Nucleated RBC % (0.0-0.3) % Absolute Neutrophils (1.2-6.7) 10^3/uL Absolute Lymphocytes (1.2-3.4) 10^3/uL Absolute Monocytes (0.1-0.8) 10^3/uL Absolute Eosinophils (0.0-0.7) 10^3/uL Absolute Basophils (0.0-0.2) 10^3/uL Sodium (136-145) mmol/L Potassium (3.5-5.1) mmol/L Chloride (98-107) mmol/L Carbon Dioxide (21.0-32.0) mmol/L Anion Gap (3-11) mmol/L BUN (7-18) mg/dL Creatinine (0.55-1.02) mg/dL Est GFR (CKD-EPI 2020) (mL/min/1.73m2) Glucose (74-106) mg/dL Hemoglobin A1c (<5.7) % Calcium (8.5-10.1) mg/dL Magnesium (1.8-2.4) mg/dL Total Bilirubin (0.2-1.0) mg/dL AST (15-37) U/L ALT (14-59) U/L Alkaline Phosphatase (46-116) U/L Troponin I (<or=51) ng/L 5 Total Protein (6.4-8.2) g/dL Albumin (3.4-5.0) g/dL TSH (0.36-3.74) uIU/mL Urine Color (Yellow) Urine Clarity (Clear) Urine pH (5-8) Ur Specific [place] (1.005-1.025) Urine Protein (Neg-Trace) mg/dL Urine Ketones (Negative) mg/dL Urine Blood (Negative) Urine Nitrite (Negative) Urine Bilirubin (Negative) Urine Urobilinogen (Up to 0.2) mg/dL Ur Leukocyte Esterase (Negative) Urine Glucose (Negative) mg/dL COVID-19 Source SARS-CoV-2 (PCR) (Negative) Influenza Type A (PCR) (Negative) Influenza Type B (PCR) (Negative) RSV (PCR) (Negative) Medical Decision Making Results: Head CT was ordered secondary to history of breast cancer and vague complaints including headache, there is some asymmetry to the ventricles which the radiologist suspects is developmental but acute process, CBC CMP are largely unremarkable for patient hemoglobin A1c of 6.8 Assessment and plan: 64-year-old female presenting with vague complaints listed which started with onset of new medication glimepiride. Patient feels that this medication offers more adverse effects than she would like. I do not see another acute etiology of her symptoms her labs are unremarkable as is her CT of her head which she is encouraged to review with her doctor. She is also encouraged to discuss the glimepiride with her PCP. I will have her discontinue this medication until she does have another plan with her doctor in place. She is encouraged to call them tonight or tomorrow to schedule an appointment for later this week. She is fully alert and oriented with a nonfocal neurological exam. return precautions were reviewed with patient in detail and she expressed understanding. I did consider TIA or CVA however my suspicion for these processes is quite low given the lack of focal findings on assessment today, I also considered diabetic ketoacidosis, urinary tract infection, and thyroid disease although given the lack of acute findings and patient's diagnostic lab work I think this is reassuring and less likely to be the cause of her symptoms. Quality:SDOH Health Related Social Needs: Health related social needs inadequate housing risk of homeless material hardship house/econ circumstance finding work lonely/isolated Health related social needs details food PFSH All Active Problems (Updated 03/16/25 @ 14:15 by YADIRA Claudio) Diabetes (Chronic) Malaise (Acute) Hyperglycemia (Acute) History of breast cancer (Acute) Schatzki's ring (Acute ~11/2024) [place] [facility] [place] D[place]. [facility] prescription benzodiazepine use (Acute) Non-proliferative diabetic retinopathy, mild, left eye (Acute ~05/2024) Mechanical low back pain (Acute) Lumbar spondylosis (Acute) Degenerative joint disease (DJD) of lumbar spine (Acute) Vaginal discharge (Acute) Urinary frequency (Acute) Renal cyst, left (Acute Unknown) MRI 04/2023 LR small Stress (Acute) Pyrosis (Acute) [facility]-GI Note 04/04/23 Family history of pancreatic cancer (Acute) M Anxiety (Chronic 06/16/12) Atrophic vaginitis (Chronic 11/22/16) BRCA1 gene mutation positive (Chronic 03/26/13) S/P BSO-04/29 needs yearly pelvic exam per Dr. Chamberlain Cystocele with uterine prolapse (Chronic 04/03/17) 04/03/2017 #3. Ring with support Depressed bipolar I disorder (Chronic 06/16/12) Diabetes mellitus (Chronic 06/16/12) A1C 7% (07/2020) Family history of diabetes mellitus (Chronic 08/20/16) Migraine (Chronic 06/16/12) Osteoarthritis (Chronic 06/16/12) Vitamin D deficiency (Chronic 06/16/12) Scoliosis (Chronic) X-rays 03/2019: Mod R L1-L2 & mild S-type T-spine Meloxicam PRN, APAP, PT, weight management Osteopenia (Chronic) DEXA 2015 & 2018 (L hip) GERD (gastroesophageal reflux disease) (Chronic) h/o heartburn with Tums PRN; 07/2020--epigastric & midsternal pain with eating--PPI trial Bilateral leg paresthesia (Acute ~12/2021) Folate deficiency (Acute ~12/2021) Supplement Medical History (Updated 03/16/25 @ 14:15 by YADIRA Claudio) Lipoma Malignant neoplasm of female breast (12/15/04) BRAC-1 GENE MUTATION left; mastectomy; radiation and chemo. [place]BR[place] [facility] [place] Epigastric pain Flank pain Bronchitis Aortic root dilatation [facility] [place] 06/2020, but not present on confirmatory CTA per Dr. Parada (zoning engineer) aorta is not enlarged History of cancer of left breast [facility] [place] Hem Onc Note 03/29/23 Seborrheic keratosis (01/24/23) Dysuria Hand eczema Topical steroid PRN Fracture of distal radius and ulna E-coli UTI (04/23/17) 04/08/2017 pansensitive. Rx with ciprofloxacin ?3 days. 04/23/2017 recurrent symptoms no urine culture obtained Rx for ciprofloxacin ?5 days. Cardiomyopathy Last f/u LR cards 2020 Chronic anxiety Midline cystocele Symptomatic since 2015. Hx of eating disorder anorexia and bulemia in adolescence. None since. Hx of migraines Surgical History (Updated 01/01/25 @ 16:06 by Maria E Stewart RN) History of esophagogastroduodenoscopy (EGD) (~11/2024) [place] [facility] [place] Indications: Dysphagia, F/U of GERD. Findings: mild Schatzki ring at GE jx. dilation. mid esophagus bx'd for possible EoE. await path 12/29/24 letter-no concerning features seen. (Tahir Doll MD-[facility] [place] H/O right wrist surgery Ligation of fallopian tube Tonsillectomy STRESS TEST (08/15/11) [facility] [place] CARDIAC HEART CATH (08/15/11) LEFT; [facility] [place]ED [place]) Breast, Lumpectomy 2005 L breast cancer BRACA 1 + followed by Chemo and Radiation Bilateral salpingectomy with oophorectomy [facility] [place] prophylactic removal of fallopian tubes and ovaries. No HRT. On vaginal E2 cream. Arthroplasty of knee (~2010) [facility]-LEFT KNEE ARTHROSCOPY WITH PARTIAL MEDIAL AND LATERAL MENISCECTOMY Family History Mother Essential hypertension Breast cancer Pancreatic cancer Father Diabetes Essential hypertension Personal history of malignant neoplasm SKIN Heart disease Hyperlipidemia Anxiety Brother Essential hypertension Hyperlipidemia Grandfather Essential hypertension Personal history of malignant neoplasm LIVER Hyperlipidemia Grandfather Essential hypertension Stroke Grandmother Diabetes Personal history of malignant neoplasm BREAST Grandmother Diabetes Social History Smoking/Tobacco Use Status: Never Smoking risk assessment performed?: Yes Alcohol Intake: current Alcohol Intake frequency: holidays/special occasions only Drug use: Never Substance use type: does not use Adopted: No Caregiver/Support person: No Foster care: No Household members: none Housing: apartment Number of Children: 3 number of grandchildren: 2 Communication Needs: Corrective Lenses Education Level: college Do you need help understanding health information?: Never current occupation: [employer] Pets and animals: Yes Pets and animals: dog(s) Sexually active: No Do you think of yourself as: straight/heterosexual Current gender identity: female What is your relationship status?: How often do you talk on the phone with friends or family?: three or more times per week How often do you get together with friends or relatives?: twice per week How often do you attend taoism or yarsani services?: decline to answer Do you belong to any clubs or organized social groups?: no Panel score (0-1 are the most socially isolated patients): 1 What type of physical activity do you participate in: walking Duration: 15-30 minutes/day Frequency: 5-6 times per week Missy/Anabaptist: Adventist Seatbelt use: always Helmet use: Yes Helmet use: always Drive intox or ride w/intox route sales driver: No Working smoke detector in home: Yes Fire extinguisher in home: Yes Carbon monox detector in home: Yes Do you feel safe at home: Yes Do you feel safe in your relationship?: Yes Female Reproductive History Menstrual control method: none History History 4 Para Hx # Term Pregnancies 3 Multiple births Hx # Pregnancies Ectopic pregnancies AB induced 1 Hx Number of Living Children AB spontaneous Past Pregnancies Del. Date GA/Weeks # Preg Succ Route Wgt Sex Labor Lgth Anesthesia Location Prov Complic 05/17/86 41 No Yes vaginal 3997.283 g Male [facility] 01/29/89 41 Yes vaginal 4507.574 g Male [facility] 09/06/93 40 Yes vaginal 3628.739 g Female [facility]
[2025-03-17 11:07] LABS: Lyme Ab w Rflx to Lyme Confirm Negative (Negative)
[2025-03-20 20:51] LABS: B. miyamotoi PCR Negative (Negative); Babesia divergens/MO-1 Negative (Negative); Ehrlichia muris eauclairensis Negative (Negative)
--- NOTE | 2025-03-22 08:28 | NUR.NOTE ---
Access chart to determine antibiotic on discharge for Lyme antibody. Result given to provider. Nursing Note:
--- NOTE | 2025-03-22 08:37 | W.ED.FU ---
Date of service: 03/22/25 Time of Service: 08:37 Follow Up Plan: Received culture result, tick and Lyme panel, negative for all. No follow-up or action necessary. Irena Crooks MD
== END 2025-03-16 14:33 | disposition home or self-care (01) ==
PROVIDERS: Emergency Provider Physician Assistant; PCP Nurse Practitioner Adult Health
DX: R53.81 Other malaise (principal); E11.9 Type 2 diabetes mellitus without complications; Z59.10 Inadequate housing, unspecified; Z59.811 Housing instability, housed, with risk of homelessness; Z59.87 Material hardship due to limited financial resources, not elsewhere classified
CPT/HCPCS: 99285; 99284; 36415; 36416; 80053; 87637; 87798; 93005; 70450; 81003; 83036; 83735; 84443; 84484; 85025; 86618; 93010; J0131